=== PATIENT | male | born 1950 | race Caucasian/White ===

== ENCOUNTER 2023-05-02 18:30 | Inpatient (IN) | payer MEDICARE, OTHER, SELFPAY ==
[2023-05-02 12:05] VITALS: BP 189/74
[2023-05-02 13:10] VITALS: BMI 27.3
[2023-05-02] MEDS: NSS 1000 IV ×2 (13:31→17:59)
[2023-05-02] MEDS: TORADOL 15 MG IV (13:31)
[2023-05-02] MEDS: ZOFRAN 4 MG IV (13:31)
[2023-05-02 13:44] LABS: % Basophils 0.4 % (0-2); % Eosinophils 1.1 % (0-6); % Immature Granulocytes 0.5 % (0-0.5); % Lymphocytes 8.4 % (20.5-51.1); % Neutrophils 83.6 % (42.2-75.2); Absolute Eosinophils 0.1 10^3/uL (0-0.7); Absolute Immature Granulocytes 0.1 10^3/uL (0-0.05); Absolute Lymphocytes 0.9 10^3/uL (1.2-3.4); Absolute Monocytes 0.6 10^3/uL (0.1-0.6); Absolute Neutrophils 8.9 10^3/uL (1.4-6.5); Hematocrit 35.4 % (39.0-52.0); Hemoglobin 12.2 g/dL (13.0-18.0); Mean Corp Hgb Conc. 34.5 g/dL (33.0-37.0); Mean Corpuscular Hgb 29.8 pg (27.0-31.0); Mean Corpuscular Volume 86.6 fL (80.0-94.0); Mean Platelet Volume 10.4 fL (7.4-10.4); Nucleated Red Blood Cells % 0 % (-); Platelet Count 211 10^3/uL (130-400); Red Blood Cell Count 4.09 10^6/uL (4.70-6.10); Red Cell Dist. Width 13.8 % (11.5-14.5); White Blood Cell Count 10.6 10^3/uL (4.8-10.8)
[2023-05-02 13:56] LABS: ALT (SGPT) 27 U/L (0-50); AST (SGOT) 23 U/L (17-59); Albumin 4.1 g/dl (3.5-5.0); Alkaline Phosphatase 129 U/L (38-126); Blood Urea Nitrogen 51 mg/dl (9-20); Calcium 8.7 mg/dl (8.4-10.2); Carbon Dioxide 15 mmol/L (22-30); Chloride 112 mmol/L (98-107); Estimated Creatinine Clearance 40 ml/min; Glucose 256 mg/dl (70-99); Potassium 5.9 mmol/L (3.5-5.1); Sodium 135 mmol/L (135-145); Total Bilirubin 0.4 mg/dl (0.2-1.3); Total Protein 6.8 g/dl (6.3-8.2); eGFR 34.81
--- NOTE | 2023-05-02 14:32 | ED.GENMED ---
History of Present Illness
General
Chief Complaint: Flank Pain
Source: patient
Exam Limitations: none
Time Seen by Provider: 05/02/23 12:33
Nursing documentation reviewed up to this point in time: agreed with
Travel History
Have you had any contact with someone who has COVID-19?: No
Do you have any symptoms of coronavirus? Fever > 100 degrees, chills, cough, shortness of breath, sore throat, loss of taste or smell, muscle aches, or headache?: No
History of Present Illness
History of Present Illness:
73-year-old male with past medical history of CAD hypertension hyperlipidemia presenting to the emergency department today with concerns of right-sided flank discomfort over the past hour with associated vomiting. Feels very similar to previous
kidney stones. Denies chest pain shortness of breath fevers.
Past History
Past History
ED Past Medical History: CAD, HTN, Hypercholesterolemia, NIDDM and Other (Kidney stones, appendectomy)
ED Past Surgical History: Cardiac
Social History
Tobacco: Non-smoker
Alcohol: Occasional
Drug: None
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
Family History
Family History: Other (Brother with kidney stones)
Review of Systems
Review of Systems
Allergies reviewed?: Yes
All Other Systems: ROS reviewed and negative except as documented in HPI and ROS
Phy Exam
Physical Exam
Physical Exam:
GENERAL: Alert , in no apparent distress
EYE: pupils equal and reactive
NECK: Supple, no significant adenopathy.
ENT: o/p clr, mmm.
CARDIAC: Regular rate and rhythm .
LUNGS: Clear breath sounds bilaterally, no acute respiratory distress, no wheezes/rales/rhonchi
ABDOMEN: Soft, without focal tenderness, no r/g, no cvat
NEUROLOGICAL: Alert and oriented, no focal neuro deficits
SKIN: Warm and dry, skin intact.
MUSCULOSKELETAL: No edema, well perfused.
PSYCH: Normal and appropriate interaction.
Course
Orders/Labs/Results
Orders:
Orders
05/02/23 13:02
CT Abd/pel Without Iv Or Oral Urgent
Comment:
Reason For Exam: right flank pain
0.9% Sodium Chloride 1000 ml [Nss] 1,000 ml IV BOLUS
Ketorolac [Toradol] 15 mg IV NOW STA
Ondansetron Injectable [Zofran] 4 mg IV NOW STA
05/02/23 13:29
Complete Blood Count/With Diff Urgent
Comprehensive Metabolic Panel Urgent
Glycohemoglobin (HgbA1c) Urgent
05/02/23 14:41
EKG [Electrocardiogram (*1)] Urgent
Reason for Study: Other
Other Reason for Exam: hyperkalemia
EKG- Treatment ONCE
05/02/23 Dinner
Potassium, 2 Gram
At Your Request: Full Participation
Does patient need a safe tray?: No
Low Potassium: 2000 johnny/17 CHO Diabetic
05/02/23 16:10
Magnesium Urgent
Potassium Urgent
Urinalysis Reflex To Culture Urgent
Date Specimen was Collected: 05/02/23
Time Specimen was Collected: 12:07
Urine Microscopic Reflex Cult Urgent
05/02/23 16:49
Albuterol Nebs [Ventolin Nebules] 2.5 mg INH R NOW STA
Dextrose 50%-Water [Dextrose 50% Syringe] 25 grams IV NOW STA
Insulin Human Regular [Novolin R] 10 units IV NOW STA
Sodium Zirconium Cyclosilicate [Lokelma] 10 gram PO NOW STA
05/02/23 16:50
Peak Flow Rate [RESP] Urgent
Quantity: 1
Pre-Bronchodilator: Yes
Post Bronchodilator: Yes
Special Instructions: Pre and Post Peak Flow before and after Bronchodilator
05/02/23 17:50
0.9% Sodium Chloride 1000 ml [Nss] 1,000 ml IV BOLUS
Nursing to Place Non Medication Order As Directed
Physician Order: please update overnight house [employer]RO[employer] with evening K results
Above order entered?: Yes
05/02/23 17:55
Admit/Transfer Patient As Directed
Co-Sign Provider:
Level of Care: Inpatient admission
Assign to:: Telemetry
Physician / Group: Francoise Pérez
Diagnosis: hyperkalemia
Reason for Telemetry: Chest Pain syndromes
Date to Stop Telemetry: 05/04/23
Time to Stop Telemetry: 11:00
Reason for Hospitalization: hyperkalemia
Expected length of stay greater than two midnights?: Yes
ELOS- Estimated Length of Stay in days: 3
I certify the patient meets the requirements for IP care: Yes
05/02/23 17:56
Code Status As Directed
Resuscitation Status: Full Code
05/02/23 18:00
Sterile Water For Inj [Sterile Water For Injection 1000 ml] 1,000 ml Sodium Bicarbonate 150 meq IV 100 mls/hr
05/02/23 19:44
Stone Analysis With Image [S] Routine
05/02/23 20:17
Acetaminophen [Tylenol] 650 mg PO Q4HPRN PRN
Atorvastatin [Lipitor] 40 mg PO QPM
Dextrose 50%-Water [Dextrose 50% Syringe] 12.5 grams IV [id number] PRN
Glucagon [GlucaGen] 1 mg IM PRN PRN
Heparin 5,000 units SC Q12
Metoprolol Xl [Toprol Xl] 50 mg PO BID
05/02/23 20:17
Add On- LAB Routine
Tests Added?: HgbA1C to today's lab
Activity As Directed
Activity Level: As Tolerated
Bedside Glucose Monitoring As Directed
Frequency: AC&HS
Comment: Change to q6h if pt on TPN, tube feeding or not eating
Vital Signs As Directed
Frequency: Per unit guidelines
DX Deep Vein Thrombosis Video Routine
05/02/23 21:31
Potassium Routine
05/03/23 06:00
Sodium Zirconium Cyclosilicate [Lokelma] 10 gram PO TID@0600,1400,1800
05/03/23 07:10
Basic Metabolic Panel Routine
Complete Blood Count/No Diff Routine
Magnesium Routine
05/03/23 07:30
Insulin Aspart Corrective Low [Novolog Flexpen-Low Resistance] See Protocol SC AC
05/03/23 08:00
Amlodipine [Norvasc] 5 mg PO DAILY
05/04/23 11:00
DC Protocol for Telemetry ONCE
Abnormal Lab Results
05/02/23 05/02/23
13:29 16:10
RBC 4.09 L 10^6/uL
(4.70-6.10)
Hgb 12.2 L g/dL
(13.0-18.0)
Hct 35.4 L %
(39.0-52.0)
Abs Immat Gran (auto) 0.1 H 10^3/uL
(0-0.05)
Absolute Neuts (auto) 8.9 H 10^3/uL
(1.4-6.5)
Absolute Lymphs (auto) 0.9 L 10^3/uL
(1.2-3.4)
Neutrophils % 83.6 H %
(42.2-75.2)
Lymphocytes % 8.4 L %
(20.5-51.1)
Potassium 5.9 H mmol/L 6.2 H* mmol/L
(3.5-5.1) (3.5-5.1)
Chloride 112 H mmol/L
(98-107)
Carbon Dioxide 15 L mmol/L
(22-30)
BUN 51 H mg/dl
(9-20)
Creatinine 2.0 H mg/dL
(0.7-1.3)
Glucose 256 H mg/dl
(70-99)
Hemoglobin A1c 9.5 H %
(4.0-5.6)
Alkaline Phosphatase 129 H U/L
(38-126)
Ur Occult Blood Reflex 4+ A
(Negative)
Urine RBC 7-10 A /HPF
(0-2)
Urine Glucose 3+ A
(Negative)
05/02/23 13:29
05/02/23 16:10
Vital Signs
Initial and Last Documented VS:
Initial Vital Signs
Temp Pulse Resp BP Pulse Ox
98.3 F 83 20 189/74 98
05/02/23 12:05 05/02/23 12:05 05/02/23 12:05 05/02/23 12:05 05/02/23 12:05
Last Documented Vital Signs
Temp Pulse Resp BP Pulse Ox
97.3 F 63 16 133/63 95
05/03/23 07:55 05/03/23 07:55 05/03/23 07:55 05/03/23 07:55 05/03/23 08:00
MDM/Problems Addressed
MDM/Problems Addressed:
73-year-old male presenting to the emergency department today with concerns of right-sided flank pain starting just prior to arrival symptoms fully resolved prior to my assessment. Feels very similar to previous kidney stones. Blood pressure
elevated otherwise vital signs are normal upon arrival here. Patient does have elevated creatinine level but at his baseline. Potassium level is 5.9. Patient does have baseline CKD with creatinine 2.0 which is at patient's baseline glucose
elevated as well. Patient was given a liter of fluid plan to repeat labs to ensure this is an accurate number otherwise EKG does not show emergent changes. CT scan shows likely recently passed stone patient is asymptomatic at this point
reassessment and would like to go home. Patient did have a potassium level was 5.9 this was repeated 6.2 concerning the patient will be admitted for further treatment of hyperkalemia. Patient does take lisinopril and does have significant chronic
kidney disease likely contributing to this. EKG without emergent changes. Patient was given temporizing medications.
*Critical Care Note
Total Time (30-74mins, 75-104mins- exclusive of procedures): Not Applicable
ED Attending Note
-
Portions of this chart may have been created with voice recognition software.� Occasional wrong word or��sound alike� substitutions may have occurred due to the inherent limitations of voice recognition software.
Discharge Plan
Departure
Patient Disposition: Admit
Date of Disposition: 05/02/23
Time of Disposition: 16:52
Admit to: Med/Surg
Admit to doctor: Lang
Presentation/result/management discussed w/ accepting MD/DO: Hospitalist
Patient with high blood pressure during this ER visit?: No
Condition: Good
Covid-19: Not Applicable
Discharge Problem:
Acute hyperkalemia
Interventions
Interventions:
*Risk Screen - Suicide Last Done: 05/02/23 13:47
*General Assessment Last Done: 05/02/23 13:47
*Neglect/Abuse Screening Last Done: 05/02/23 13:47
ED- Fall Risk Assessment Last Done: 05/02/23 13:50
*ED COVID-19 Vaccine History Last Done: 05/02/23 21:45
*Nursing Disposition Last Done: 05/02/23 20:15
ZV-Ttzjes-Ibqoqtxctw Assessment Last Done: 05/02/23 13:50
ED-Male Genitourinary Assessment Last Done: 05/02/23 13:50
Discharge Date and Time
Discharge Date/Time: 05/02/23 20:15
[2023-05-02 16:22] LABS: Urine Albumin Negative (Neg - Trace); Urine Bilirubin Negative (Negative); Urine Character Clear (Clear); Urine Color Yellow; Urine Glucose 3+ (Negative); Urine Ketone Negative (Negative); Urine Leukocyte Negative (Negative); Urine Nitrite Negative (Negative); Urine Occult Blood 4+ (Negative); Urine Specific Gravity 1.015 (<1.030); Urine Urobilinogen Negative (Neg - 1+)
[2023-05-02 16:27] LABS: Urine Squamous Cell 0-2 /LPF (Few)
[2023-05-02 16:28] LABS: Urine White Cell None Seen /HPF (0-5)
[2023-05-02 16:46] LABS: Magnesium 1.6 mg/dl (1.6-2.3); Potassium 6.2 mmol/L (3.5-5.1)
--- NOTE | 2023-05-02 17:25 | HPS.HSE ---
Family Physician
-
Family Physician: Gene Banks
Chief Complaint
-
flank pain
History of Present Illness
Mr. Flaquito Jamil is a 73 yo man with hx CAD s/p CABG 2014, essential HTN, HLD presented to the ER with right-sided pain and associated vomiting. While in the ER he passed a kidney stone. ER asking for admission given hyperkalemia.
Patient reports he vomited a couple of times and has not eaten or drank a lot today. He noticed pain this morning similar to prior stones. While giving urine sample he passed the stone. No fevers/chills. No chest pain or shortness of breath, no
abdominal pain.
K initially 5.9. He was given 1L IVF. Repeat check 3 hours later 6.2.
Medical History
Past Medical History
Past Medical History: Reports Other (CAD, essential HTN, HLD)
Past Surgical History: Reports Appendectomy and Cardiac (CABG 2014)
Social History
Tobacco: Non-smoker
Alcohol: Occasional
Family History
Family History: Not pertinent
Allergies / Home Medications
Allergies reflects when Allergies were last updated in [facility].
Home Medications with original date entered in [facility]
Allergy/Medication List:
Allergies
Allergy/AdvReac Type Severity Reaction Status Date / Time
No Known Allergies Allergy Verified 05/02/23 12:04
Home Medications
llbubplb-kyw-jphph acid 0.4 mg-lycopene 300 mcg-lutein 250 mcg tablet (Centrum Silver) 1 ea PO DAILY 02/26/14
omega-3 fatty acids-fish oil 300 mg-1,000 mg capsule 1 ea PO DAILY 02/26/14
amlodipine 5 mg tablet 5 mg PO DAILY ##0 03/25/14
atorvastatin 40 mg tablet 40 mg PO QPM ##30 03/15/15
metformin 500 mg tablet 500 mg PO BID@0800,1700 ##60 03/15/15
ascorbic acid (vitamin C) 1,000 mg tablet (Vitamin C) 1,000 mg PO DAILY 05/02/23
dapagliflozin propanediol 10 mg tablet (Farxiga) 10 mg PO DAILY 05/02/23
lisinopril 20 mg tablet 20 mg PO DAILY 05/02/23
metoprolol succinate 50 mg tablet,extended release 24 hr 50 mg PO BID 05/02/23
Review of Systems
-
History Source: Patient
A 12 point ROS was completed and negative except as noted: Yes
Physical Exam
Vital Signs
Vital Signs
Temp Pulse Resp BP Pulse Ox
98.3 F 83 20 189/74 98
05/02/23 12:05 05/02/23 12:05 05/02/23 12:05 05/02/23 12:05 05/02/23 12:05
Physical Exam
General: No Apparent Distress
HEENT: PERRLA
Respiratory: Clear; No Wheezes
Cardiac: S1/S2 and Regular Rhythm
GI: Soft and Non Tender
Musculoskeletal: No Edema
Skin: Warm and Dry; No Rash
Neuro: AO x 3
Psych: Calm
Laboratory Results
-
05/02/23 13:29
05/02/23 16:10
Laboratory Results
Total Bilirubin 0.4 mg/dl (0.2-1.3) 05/02/23 13:29
AST 23 U/L (17-59) 05/02/23 13:29
ALT 27 U/L (0-50) 05/02/23 13:29
Alkaline Phosphatase 129 U/L (38-126) H 05/02/23 13:29
Data Reviewed
-
Diagnostic Radiology: Report Reviewed by me
Lab Data: Labs Reviewed by me
Impression/Plan
-
Mr. Flaquito Jamil is a 73 yo man with hx CAD, essential HTN, HLD presented to the ER with right-sided pain and associated vomiting. While in the ER he passed a kidney stone. ER asking for admission given hyperkalemia.
Triage VS: T 98.3, P 83, RR 20, BP 189/74, SpO2 98%
LABS: WBC 10.6, Hg 12.2, PLT 211, Na 135, K+ 5.9, CO2 15, Cr 2.0, Mag 1.6
EKG: sinus with PVC's, RBBB left anterior fascicular block
MAR: dextrose, insulin, IVF
Hyperkalemia
-initially given 1L IVF; labs rechecked 3 hours later with increased K to 6.1 now s/p insulin + D5, albuterol, lokelma
-will give an additional liter (likely still dehydrated with vomiting and minimal PO intake)
-hold WOOL PULLER lisinopril
-initiate sodium bicarb infusion given CKD and metabolic acidosis
-continue Lokelma
-repeat K at 9PM and again tomorrow AM
-low K diet
Chronic kidney disease
-creatinine at baseline
Nephrolithiasis
-patient passed a stone in the ER, send for analysis
Essential Hypertension
-hold WOOL PULLER lisinopril
-continue WOOL PULLER metoprolol
-continue WOOL PULLER amlodipine
HLD
-WOOL PULLER Atorvastatin
DM
-hold WOOL PULLER Farxiga and metformin for now
-ISS
-diabetic diet
DVT PPx hep sub Q
FULL CODE
[2023-05-02] MEDS: NOVOLIN R 10 UNITS IV (17:56)
[2023-05-02] MEDS: LOKELMA 10 GRAM PO (17:58)
[2023-05-02] MEDS: DEXTROSE 50% SYRINGE 25 GRAMS IV (17:58)
[2023-05-02] MEDS: VENTOLIN NEBULES 2.5 MG INH (17:59)
[2023-05-02 18:04] VITALS: BP 138/71
[2023-05-02 19:00] VITALS: BP 148/66
[2023-05-02] MEDS: SODIUM BICARBONATE 1150 MEQ IV (19:09)
[2023-05-02 20:00] VITALS: BP 138/62
--- NOTE | 2023-05-02 20:30 | PTCARENOTE ---
Received patient from ED via stretcher. Patient ambulated from stretcher to bed independently. AAOx3, no current complaints of pain. Oriented patient to room and placed call abbott within reach.
[2023-05-02 20:40] VITALS: BP 143/71
[2023-05-02 21:15] VITALS: BMI 26.7
[2023-05-02] MEDS: TOPROL XL 50 MG PO (21:59)
[2023-05-02] MEDS: LIPITOR 40 MG PO (21:59)
[2023-05-02 22:52] LABS: Glucose - Point of Care 128 mg/dl (70-99)
[2023-05-02 23:00] VITALS: BP 138/58
[2023-05-03] MEDS: LOKELMA 5 GRAM PO (00:03)
[2023-05-03 03:00] VITALS: BP 132/56
[2023-05-03] MEDS: SODIUM BICARBONATE 1150 MEQ IV (06:12)
[2023-05-03 07:38] LABS: Hematocrit 33.7 % (39.0-52.0); Hemoglobin 11.5 g/dL (13.0-18.0); Mean Corp Hgb Conc. 34.1 g/dL (33.0-37.0); Mean Corpuscular Hgb 29.6 pg (27.0-31.0); Mean Corpuscular Volume 86.9 fL (80.0-94.0); Mean Platelet Volume 10.3 fL (7.4-10.4); Platelet Count 199 10^3/uL (130-400); Red Blood Cell Count 3.88 10^6/uL (4.70-6.10); Red Cell Dist. Width 13.8 % (11.5-14.5); White Blood Cell Count 7.9 10^3/uL (4.8-10.8)
[2023-05-03 07:43] LABS: Glucose - Point of Care 117 mg/dl (70-99)
[2023-05-03] MEDS: NORVASC 5 MG PO (07:50)
[2023-05-03] MEDS: TOPROL XL 50 MG PO (07:50)
[2023-05-03 07:55] VITALS: BP 133/63
[2023-05-03 08:00] LABS: Blood Urea Nitrogen 39 mg/dl (9-20); Calcium 8.2 mg/dl (8.4-10.2); Carbon Dioxide 20 mmol/L (22-30); Chloride 109 mmol/L (98-107); Estimated Creatinine Clearance 53 ml/min; Glucose 133 mg/dl (70-99); Magnesium 1.5 mg/dl (1.6-2.3); Potassium 4.7 mmol/L (3.5-5.1); Sodium 137 mmol/L (135-145); eGFR 49.16
[2023-05-03 09:49] LABS: Glycohemoglobin (HgbA1c) 9.5 % (4.0-5.6)
--- NOTE | 2023-05-03 11:23 | CM ---
Patient seen bedside, initial assessment completed. Patient reports he resides independently in a single story home, four steps to enter. Patient denies the use of DME, VN, or SNF history. Patient confirms PCP Dr. Gene Banks, pharmacy [facility]
in [place]. Patient eager to go home, reports he drove himself here and will drive himself home. CM will continue to follow for discharge planning needs.
Plan; home no needs anticipated.
[2023-05-03] MEDS: MAGNESIUM SULFATE 50 IV (11:32)
--- NOTE | 2023-05-03 11:33 | W.PN.HOSP.TC ---
Today's Communication/Plan
-
OK for DC today
Assessment / Plan
Assessment / Plan
Mr. Flaquito Jamil is a 73 yo man with hx CAD, essential HTN, HLD presented to the ER with right-sided pain and associated vomiting.� While in the ER he passed a kidney stone.� ER asking for admission given hyperkalemia.
Hyperkalemia
-initially given 1L IVF; labs rechecked 3 hours later with increased K to 6.1 now s/p insulin + D5, albuterol, lokelma
-Hyperkalemia resolved this AM
-*Given K was elevated in setting of vomiting and dehydration with likely mild RAYMOND, it is OK to resume lisinopril. We will get repeat labs on Monday. Patient has follow up wtih his PCP early next week. Will give instructions on low K diet.
Chronic kidney disease
-creatinine at baseline- improved to 1.5 this AM
Nephrolithiasis
-patient passed a stone in the ER, send for analysis
Essential Hypertension
-resume 1/2 dose lisinopril - BP in 130's-140's overnight
-continue [employer] SALES REPRESENTATIVE metoprolol
-continue [employer] SALES REPRESENTATIVE amlodipine
HLD
-DA[employer] SUP[employer] SALES REPRESENTATIVE Atorvastatin
DM
-resume [employer] SALES REPRESENTATIVE meds
-ISS
-diabetic diet
Hypomagnesemia
-replete
DVT PPx hep sub Q
FULL CODE
Anticipated Discharge: Today
Subjective/Interval History
-
Date of Service: May 03, 2023
feeling well
anxious to go home
Objective Data
-
Labs:
Laboratory Results
05/03/23
07:10
WBC 7.9
Hgb 11.5 L
Hct 33.7 L
Plt Count 199
Sodium 137
Potassium 4.7
Chloride 109 H
Carbon Dioxide 20 L
BUN 39 H
Creatinine 1.5 H
Glucose 133 H
Calcium 8.2 L
Vital Signs:
Vital Signs
Temp Pulse Resp BP Pulse Ox
97.3 F 63 16 133/63 95
05/03/23 07:55 05/03/23 07:55 05/03/23 07:55 05/03/23 07:55 05/03/23 08:00
Review of Systems
-
History Source: Patient
All other systems: Reviewed and negative
Physical Exam
-
General: No Apparent Distress
HEENT: PERRLA
Respiratory: Clear to Auscultation; Negative Wheezes
Cardiac: Regular Rhythm and S1/S2
GI: Soft and Nontender
Musculoskeletal: No Edema
Skin: Warm and Dry; Negative Rash
Neuro: AO x 3
Psych: Calm
Data Reviewed
-
Diagnostic Radiology: Report Reviewed by me
Labs: Labs Reviewed by me
--- NOTE | 2023-05-03 11:37 | W.DS.TRANS ---
DC Summary - Template Checker
-
Discharge Instructions:
Discharge Diagnosis/Procedures hyperkalemia, passed renal stone
Diet Other diet
Additional Diets low potassium; diabetic
Activity As tolerated
Driving Restrictions As prior to admission
Bathing Restrictions None
Blood Work BMP on Monday05/08/23. Go to lab with script.
Results will be reported to your PCP.
Instructions:
Stand-Alone Forms:
Changes to Home Medications: Yes
Discharge Medications:
DC Medications w/original date entered in [employer]
hbjvldgh-qcv-etytg acid 0.4 mg-lycopene 300 mcg-lutein 250 mcg tablet (Centrum Silver) 1 ea PO DAILY 02/26/14
omega-3 fatty acids-fish oil 300 mg-1,000 mg capsule 1 ea PO DAILY 02/26/14
amlodipine 5 mg tablet 5 mg PO DAILY ##0 03/25/14
atorvastatin 40 mg tablet 40 mg PO QPM ##30 03/15/15
metformin 500 mg tablet 500 mg PO BID@0800,1700 ##60 03/15/15
ascorbic acid (vitamin C) 1,000 mg tablet (Vitamin C) 1,000 mg PO DAILY 05/02/23
dapagliflozin propanediol 10 mg tablet (Farxiga) 10 mg PO DAILY 05/02/23
metoprolol succinate 50 mg tablet,extended release 24 hr 50 mg PO BID 05/02/23
lisinopril 20 mg tablet 10 mg PO DAILY #0 tabs 05/03/23
Home Medication Changes
decrease lisinopril from 20mg daily to 10mg daily
Pending Results: Yes
Additional Pending Results:
renal stone analysis
[2023-05-03 11:55] VITALS: BP 152/68
[2023-05-03 12:42] LABS: Glucose - Point of Care 159 mg/dl (70-99)
--- NOTE | 2023-05-03 14:26 | W.DCSUMMARY ---
Discharge Summary
Discharge Data
Date of Admission: 05/02/23
Date of Discharge: 05/03/23
-
Pending Results: No
Hospital Course
Discharging Physician : Dr. Francoise Pérez
Disposition : Home
Primary care physician : Dr. Gene Banks
Principal Discharge diagnosis : passed renal stone, hyperkalemia
Hospital Course :
Mr. Flaquito Jamil is a 73 yo man with hx CAD s/p CABG 2014, essential HTN, HLD presented to the ER with right-sided pain and associated vomiting.� While in the ER he passed a kidney stone with relief of pain.� Initial labs showed K 5.9 with
creatinine 2.0, CO2 15. Patient was given fluids but on recheck K was 6.2. At this point patient admitted to medicine for further treatment and monitoring. In ER he was given insulin + D50, albuterol, Lokelma and additional fluids. He was
maintained on sodium bicarb overnight. K normalized to 4.7 the following morning and creatinine 1.5.
Given patient had abnormal labs in setting of dehydration which is now resolved, OK to resume lisinopril. I am resuming 1/2 dose given BP range 130's in hospital. Labs to be rechecked on Monday. Patient has planned PCP appointment early next
week, will review if lisinopril should be increased back to prior dosing 20mg daily.
Renal stone was sent for analysis, pending at [facility].
Time spent on discharge was 35 minutes.
Important imaging findings :
ABDOMEN PELVIC CT 05/02/23
IMPRESSION:
As described above, findings suggesting a recently passed right ureteral calculus. There is a 2 mm calcification within the posterior midline dependent bladder.
Bilateral small nephroliths.
Moderate elevation right hemidiaphragm, increased compared to CT of March 11, 2015. Linear densities within the right lower lung, most likely linear and discoid atelectasis.
Cholelithiasis. No CT findings for acute cholecystitis. No evidence of biliary ductal dilation.
Mild fatty infiltration of the liver.
Colonic diverticula with no CT evidence for diverticulitis.
Bony degenerative changes as described, including a calcified left posterior subarticular disc protrusion at T12-L1.
�
Procedure findings :
Discharge Plan
-
Patient Disposition: Home (Routine Discharge)
Discharge Diagnosis/Procedures: hyperkalemia, passed renal stone
Diet: Other diet
Additional Diets: low potassium; diabetic
Activity: As tolerated
Driving Restrictions: As prior to admission
Bathing Restrictions: None
Blood Work: BMP on Monday05/08/23. Go to lab with script. Results will be reported to your PCP.
Instructions: Low-potassium diet
Referrals:
Gene Banks, DO [Family Provider] - in less than 1 week
Additional Discharge Medication Instructions: Decrease your Lisinopril from 20mg to 10mg. Your systolic blood pressure was 130's in hospital off of this medication. Consider getting a blood pressure machine for home and recording BP readings to
PCP one hour after taking your medications.
Prescriptions:
Continued
Centrum Silver 1 EACH tablet
1 ea PO DAILY
omega-3 fatty acids-fish oil 1 EACH capsule
1 ea PO DAILY
Patient Comments:
1200 mg
amlodipine 5 MG tablet
5 mg PO DAILY Qty: 0 0RF
Rx Instructions:
do not resume this medication until instructed by your information systems administrator
atorvastatin 40 MG tablet
40 mg PO QPM Qty: 30 0RF
metformin 500 MG tablet
500 mg PO BID@0800,1700 Qty: 60 0RF
dapagliflozin propanediol [Farxiga] 10 mg tablet
10 mg PO DAILY
ascorbic acid (vitamin C) [Vitamin C] 1,000 mg Tablet
1,000 mg PO DAILY
metoprolol succinate 50 mg tablet extended release 24 hr
50 mg PO BID
Changed
lisinopril 20 mg tablet
10 mg PO DAILY Qty: 0 0RF
Discharge Orders:
Discharge Patient (As Directed); Ordered 05/03/23
Ordered By: Francoise Pérez
Discharge Date and Time
Discharge Date/Time: 05/03/23 14:03
== END 2023-05-03 14:03 | disposition home or self-care (01) | DRG 641 ==
LOC: 4 EAST ACU 18:30
PROVIDERS: Emergency Medicine; Physician Assistant; ADMITTING PHYSICIAN Student in an Organized Health Care Education/Training Program; EMERGENCY PHYSICIAN Emergency Medicine; FAMILY PHYSICIAN Family Medicine
DX: E87.5 Hyperkalemia (principal); N17.9 Acute kidney failure, unspecified; J98.11 Atelectasis; N20.0 Calculus of kidney; I25.10 Atherosclerotic heart disease of native coronary artery without angina pectoris; K76.0 Fatty (change of) liver, not elsewhere classified; K57.30 Diverticulosis of large intestine without perforation or abscess without bleeding; K80.20 Calculus of gallbladder without cholecystitis without obstruction; E78.00 Pure hypercholesterolemia, unspecified; I12.9 Hypertensive chronic kidney disease with stage 1 through stage 4 chronic kidney disease, or unspecified chronic kidney disease; E11.22 Type 2 diabetes mellitus with diabetic chronic kidney disease; E83.42 Hypomagnesemia; E86.0 Dehydration; N18.9 Chronic kidney disease, unspecified; Z87.442 Personal history of urinary calculi; Z95.1 Presence of aortocoronary bypass graft; Z90.49 Acquired absence of other specified parts of digestive tract
CPT/HCPCS: 74176; 80048; 80053; 81003; 81015; 82365; 82962; 83036; 83735; 84132; 85025; 85027; 93005; 96361; 96374; 96375; 99285

== ENCOUNTER → 2023-05-08 10:01 | Outpatient (REF) | payer MEDICARE, OTHER, SELFPAY ==
[2023-05-08 12:33] LABS: Blood Urea Nitrogen 39 mg/dl (9-20); Calcium 9.4 mg/dl (8.4-10.2); Carbon Dioxide 25 mmol/L (22-30); Chloride 103 mmol/L (98-107); Glucose 226 mg/dl (70-99); Potassium 5.4 mmol/L (3.5-5.1); Sodium 137 mmol/L (135-145)
== END ==
LOC: REG 10:01
PROVIDERS: ATTENDING PHYSICIAN Student in an Organized Health Care Education/Training Program; FAMILY PHYSICIAN Family Medicine
DX: E87.5 Hyperkalemia (principal)
CPT/HCPCS: 36415; 80048

== ENCOUNTER 2023-09-04 15:20 | Inpatient (IN) | payer MEDICARE, OTHER, SELFPAY ==
[2023-09-04] VITALS (8 sets, daily range): BP systolic 123–144; BP diastolic 56–68; BMI 24.8; BMI 24.6
--- NOTE | 2023-09-04 12:18 | ED.GENMED ---
History of Present Illness
General
Chief Complaint: Skin Problem
Source: patient and records
Time Seen by Provider: 09/04/23 11:56
History of Present Illness
History of Present Illness:
This patient is a 73-year-old male presents emergency department complaints of a painful and foul-smelling right foot. He reports he was vacationing in [place] for almost 2 weeks and did a lot of walking as well as enjoying the water in the ocean.
By the end of June, he noted that the toe was becoming swollen. He started to wrap the area and apply an [id number]-sgk-wkalgng ointment. He saw his doctor 3 weeks ago but did not mention the symptoms. Then, over the last week or so he has noted
increasing pain of the third digit on the right foot area. He noted foul-smelling as of 4 days ago. He saw an orthopedic doctor today who sent him to the emergency department given his obvious third toe gangrene. It is recommended that patient
obtain an x-ray, MRI, and n.p.o. past midnight in anticipation of toe amputation. Patient denies fever, chills, numbness, tingling. He does have nausea but denies vomiting
Past History
Past History
ED Past Medical History: CAD, HTN, Hypercholesterolemia, NIDDM and Other (Kidney stones, appendectomy, DM)
ED Past Surgical History: Cardiac
Social History
Tobacco: Non-smoker
Alcohol: Occasional
Drug: None
Living: alone
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
Family History
Family History: Other (Brother with kidney stones)
Phy Exam
Physical Exam
Physical Exam:
GENERAL: Alert , in no apparent distress
EYE: pupils equal and reactive
NECK: Supple, no significant adenopathy.
ENT: o/p clr, mmm.
CARDIAC: Regular rate and rhythm .
LUNGS: Clear breath sounds bilaterally, no acute respiratory distress, no wheezes/rales/rhonchi
ABDOMEN: Soft, without focal tenderness, no r/g, no cvat
NEUROLOGICAL: Alert and oriented, no focal neuro deficits
SKIN: macerated gangrenous foul smelling R 3rd toe with necrosis noted inferiorly, as well as nectoric appearing areas plntr aspect midfoot. Erythema and warmth extending to mid foot, no crepitus
MUSCULOSKELETAL: As above
PSYCH: Normal and appropriate interaction.
Course
Orders/Labs/Results
Orders:
Orders
09/04/23 Breakfast
NPO
Allow oral meds: Yes
Allow clear liquids: No
NPO with Ice Chips: No
09/04/23 12:10
Cardiac Monitoring- Treatment ONCE
Foot, Right 3 View [CR Foot - Right Min 3 Views] Stat
Comment:
Reason For Exam: necrotic 3rd toe
09/04/23 12:12
Piperacillin/Tazo 4.5 Gram [Zosyn] 4.5 gram in 100 ml IV NOW
09/04/23 13:03
CRP [C-Reactive Protein] Urgent
Complete Blood Count/With Diff Urgent
Comprehensive Metabolic Panel Urgent
ESR [Erythrocyte Sed Rate] Urgent
Ferritin Urgent
Comment: ADD ON
Folate Urgent
Comment: ADD ON
Iron Urgent
Total Iron Binding Urgent
Vitamin B12 Urgent
Comment: ADD ON
Blood Culture Urgent
TRE Source: Blood/Venous
Specimen Description:
09/04/23 13:47
0.9% Sodium Chloride 500 ml [Nss] 500 ml IV BOLUS
09/04/23 13:57
Vancomycin [Vancocin] 2,000 mg 0.9% Sodium Chloride 500 ml [Nss] 500 ml IV NOW
09/04/23 14:54
Add On- LAB Urgent
Tests Added?: iron, ferritin, tibc, folate b12
09/04/23 14:58
Admit/Transfer Patient As Directed
Co-Sign Provider:
Level of Care: Inpatient admission
Assign to:: Medical/Surgical
Physician / Group: jade miller
Diagnosis: gangrene R 3rd toe w/ cellulitis dm 2 , anemia, transaminitis
Reason for Hospitalization: gangrene R 3rd toe w/ cellulitis dm 2 , anemia, transaminitis
Expected length of stay greater than two midnights?: Yes
ELOS- Estimated Length of Stay in days: 4
I certify the patient meets the requirements for IP care: Yes
Code Status As Directed
Resuscitation Status: Full Code
09/04/23 Dinner
1800 calorie (15 carb) Diabetic
At Your Request: Full Participation
Does patient need a safe tray?: No
09/04/23 15:18
PODIATRY CONSULT Routine
Consulting Provider: Cele Ojeda
Was physician already notified: Yes
Reason for consult: gangrene r 3rd toe
09/04/23 16:28
0.9% Sodium Chloride 1000 ml [Nss] 1,000 ml IV 100 mls/hr
Dextrose 50%-Water [Dextrose 50% Syringe] 12.5 grams IV P55ORHB PRN
Glucagon [GlucaGen] 1 mg IM PRN PRN
VANCOMYCIN Pharmacy to Dose [VANCOCIN Pharmacy to Dose] 1 each Pharmacy To Prepare [Call Pharmacy To Prepare] 0 ml IV PER PROTOCOL
09/04/23 16:28
Activity As Directed
Activity Level: As Tolerated
Bedside Glucose Monitoring As Directed
Frequency: AC&HS
Additional Instructions:: Change to q6h if pt on TPN, tube feeding or not eating
Intake/ Output As Directed
Frequency: Per unit guidelines
Pneumatic Compression Sleeves As Directed
Type: Knee high
Vital Signs As Directed
Frequency: Per unit guidelines
Ot Eval And Treat Routine
Pt Eval And Treat Routine
Activity Level: As Tolerated
DX Deep Vein Thrombosis Video Routine
09/04/23 16:30
Insulin Aspart Corrective Mod [Novolog Flexpen-Moderate Resistance] See Protocol SC AC
09/04/23 17:11
Type+Screen Urgent
09/04/23 20:00
Metoprolol Xl [Toprol Xl] 50 mg PO BID
09/05/23 08:00
Amlodipine [Norvasc] 5 mg PO DAILY
Ascorbic Acid [Vitamin C] 1,000 mg PO DAILY
09/05/23 08:10
Complete Blood Count/With Diff IN AM
Comprehensive Metabolic Panel IN AM
Glycohemoglobin (HgbA1c) IN AM
09/06/23 06:00
Complete Blood Count/With Diff IN AM
Comprehensive Metabolic Panel IN AM
09/07/23 06:00
Complete Blood Count/With Diff IN AM
Comprehensive Metabolic Panel IN AM
09/08/23 06:00
Complete Blood Count/With Diff IN AM
Comprehensive Metabolic Panel IN AM
Abnormal Lab Results
09/04/23
13:03
WBC 24.8 H 10^3/uL
(4.8-10.8)
RBC 3.48 L 10^6/uL
(4.70-6.10)
Hgb 9.8 L g/dL
(13.0-18.0)
Hct 28.9 L %
(39.0-52.0)
Plt Count 411 H 10^3/uL
(130-400)
Abs Immat Gran (auto) 0.4 H 10^3/uL
(0-0.05)
Absolute Neuts (auto) 22.4 H 10^3/uL
(1.4-6.5)
Absolute Lymphs (auto) 0.6 L 10^3/uL
(1.2-3.4)
Absolute Monos (auto) 1.4 H 10^3/uL
(0.1-0.6)
Immature Gran % 1.4 H %
(0-0.5)
Neutrophils % 90.1 H %
(42.2-75.2)
Lymphocytes % 2.5 L %
(20.5-51.1)
ESR 111 H mm/hour
(0-20)
Carbon Dioxide 15 L mmol/L
(22-30)
BUN 57 H mg/dl
(9-20)
Creatinine 2.2 H mg/dL
(0.7-1.3)
Glucose 328 H mg/dl
(70-99)
Iron 26 L ug/dl
(49-181)
TIBC 146 L ug/dl
(261-462)
% Saturation 17 L %
(20-50)
Ferritin 657.0 H ng/ml
(17.9-464.0)
AST 128 H U/L
(17-59)
ALT 224 H U/L
(0-50)
Alkaline Phosphatase 184 H U/L
(38-126)
C-Reactive Protein > 270.00 H mg/L
(0.0-10.00)
Albumin 3.1 L g/dl
(3.5-5.0)
Vitamin B12 > 1000 H pg/ml
(239-931)
Folate > 20.0 H ng/ml
(2.76-20)
09/04/23 13:03
09/04/23 13:03
Vital Signs
Initial and Last Documented VS:
Initial Vital Signs
Temp Pulse Resp BP Pulse Ox
98.2 F 100 18 136/56 98
09/04/23 11:48 09/04/23 11:48 09/04/23 11:48 09/04/23 11:48 09/04/23 11:48
Last Documented Vital Signs
Temp Pulse Resp BP Pulse Ox
100.4 F H 90 16 124/59 95
09/05/23 08:00 09/05/23 08:43 09/05/23 08:00 09/05/23 08:43 09/05/23 08:00
*Critical Care Note
Total Time (30-74mins, 75-104mins- exclusive of procedures): Not Applicable
Update Note
Update Note:
Patient presents to the Emergency Department with ___painful and foul-smelling third toe
Number and Complexity of Problems Addressed at the Encounter
� Chronic conditions affecting care:
� Acute Exacerbation and/or Progression of Chronic Illness:
� Differential Diagnosis includes: But not limited to osteomyelitis, abscess, necrosis, gangrene, etc. etc.
Amount and/or Complexity of Data to be Reviewed and Analyzed
� I performed an independent evaluation of and my interpretation is:
EKG:
CT:
Xrays:
Laboratory Studies:leukocytosis (c/w infx), anemia, worsening renal insufficiency
Other:
� Review of other/old records reveals:
� Clinical information was obtained by an independent historian: Note from Dr. Schrader
� Prescriptions/Medications Considered but not given:
� Further testing considered but not performed:
Risk of Complications and/or Morbidity or Mortality of Patient Management
� Social determinants of health affecting care:
� Discussion with other providers (PCP, Hospitalists, Consultants, etc):
� Escalation of care including admission/observation vs risk of discharge considered:xray pending, tt to hospitalist re:admission, npo after midnight, etc. 149 pm
ED Attending Note
-
Portions of this chart may have been created with voice recognition software.� Occasional wrong word or��sound alike� substitutions may have occurred due to the inherent limitations of voice recognition software.
Discharge Plan
Departure
Patient Disposition: Admit
Date of Disposition: 09/04/23
Time of Disposition: 13:49
Presentation/result/management discussed w/ accepting MD/DO: Hospitalist
Condition: Fair
Discharge Problem:
Gangrene of toe
Interventions
Interventions:
*Risk Screen - Suicide Last Done: 09/04/23 11:51
*General Assessment Last Done: 09/04/23 11:51
*Neglect/Abuse Screening Last Done: 09/04/23 11:51
*ED COVID-19 Vaccine History Last Done: 09/04/23 16:25
*Nursing Disposition Last Done: 09/04/23 16:10
ED-Skin Assessment Last Done: 09/04/23 12:50
Discharge Date and Time
Discharge Date/Time: 09/04/23 16:15
[2023-09-04] MEDS: ZOSYN 100 IV (13:14)
[2023-09-04 13:32] LABS: ALT (SGPT) 224 U/L (0-50); AST (SGOT) 128 U/L (17-59); Albumin 3.1 g/dl (3.5-5.0); Alkaline Phosphatase 184 U/L (38-126); Blood Urea Nitrogen 57 mg/dl (9-20); Calcium 9.3 mg/dl (8.4-10.2); Carbon Dioxide 15 mmol/L (22-30); Chloride 106 mmol/L (98-107); Estimated Creatinine Clearance 36 ml/min; Glucose 328 mg/dl (70-99); Potassium 4.2 mmol/L (3.5-5.1); Sodium 135 mmol/L (135-145); Total Bilirubin 0.5 mg/dl (0.2-1.3); Total Protein 6.3 g/dl (6.3-8.2); eGFR 31.05
[2023-09-04 13:42] LABS: Hematocrit 28.9 % (39.0-52.0); Hemoglobin 9.8 g/dL (13.0-18.0); Mean Corp Hgb Conc. 33.9 g/dL (33.0-37.0); Mean Corpuscular Hgb 28.2 pg (27.0-31.0); Mean Platelet Volume 9.4 fL (7.4-10.4); Platelet Count 411 10^3/uL (130-400); Red Blood Cell Count 3.48 10^6/uL (4.70-6.10); Red Cell Dist. Width 13.8 % (11.5-14.5); White Blood Cell Count 24.8 10^3/uL (4.8-10.8)
[2023-09-04 13:46] LABS: C-Reactive Protein > 270.00 mg/L (0.0-10.00); Erythrocyte Sed Rate 111 mm/hour (0-20)
[2023-09-04] MEDS: VANCOCIN 540 MG IV (14:08)
[2023-09-04] MEDS: NSS 500 IV (14:09)
[2023-09-04 14:18] LABS: % Basophils 0.3 % (0-2); % Immature Granulocytes 1.4 % (0-0.5); % Lymphocytes 2.5 % (20.5-51.1); % Monocytes 5.7 % (1.7-9.3); % Neutrophils 90.1 % (42.2-75.2); Absolute Basophils 0.1 10^3/uL (0-0.2); Absolute Immature Granulocytes 0.4 10^3/uL (0-0.05); Absolute Lymphocytes 0.6 10^3/uL (1.2-3.4); Absolute Monocytes 1.4 10^3/uL (0.1-0.6); Absolute Neutrophils 22.4 10^3/uL (1.4-6.5); Nucleated Red Blood Cells % 0 % (-)
--- NOTE | 2023-09-04 14:25 | HPS.HSE ---
Addendum entered and electronically signed by Nik Alvarez MD 09/04/23 15:36:
I have independently evaluated patient and agree with assessment and plan below. In addition:
73yo M with PMHx of DM, HTN, HLD came with c/o worsening discoloration of R toes. HE was seen by his grove worker and was sent to ED for possible intervention
#R multiple marqius gangrene
follow imaging
Vanco cefepime
Bcx
Podiatry
#Transaminitis
no abd pain
check hepatitis C Ab
FOllow LFT
#CKD stage 3b with createnine elevation (not in RAYMOND range)
follow Cr baseline 2.0
hold ACEi
provide mild hydration
#DM type 2 with circulatory complications
Insulin SS, Accuchecks, DM diet
DVT ppx hep
Original Note:
Family Physician
-
Family Physician: Gene Banks
Chief Complaint
-
right foot erythema with right 3rd toe swelling, black and foul odor
History of Present Illness
73 year old male complaining of painful foul smelling right foot toe for the past 2 weeks after walking lots on vacation and being in the ocean in [place] for the past 2 weeks. He reports swelling to his toe and has been applying over the counter
ointment to the affected area. he reports foul smelling drainage over the last 4 days with dark black toe and erythema to toe extending to dorsal and plantar foot . He was seen by Podiatry Dr Lynn today in the Er and told gagrene of right 3rd
tie who recommended MRI, xray and npo after midnight for toe amputation. He denies fever chills, Cp, palpitations, sob, cough, abd pain, nausea, vomiting diarrhea or urinary symptoms. He has pmh of CAD, HTN, HLD, DM2, Renal calculi, occasional
smoker.
Medical History
Past Medical History
Past Medical History: Reports Other
Additional Past Medical History:
CAD/Cabg x 3 vessel
HTN
HLD
DM2
Renal calculi
occasional smoker.
Past Surgical History: Reports Other
Additional Past Surgical History:
CABG x3 vessel
appendectomy
Social History
Tobacco: Smoker (occasional)
Alcohol: Occasional
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
Family History
Family History: Other (brother renal calculi )
Allergies / Home Medications
Allergies reflects when Allergies were last updated in [employer].
Home Medications with original date entered in [employer]
Allergy/Medication List:
Allergies
Allergy/AdvReac Type Severity Reaction Status Date / Time
No Known Allergies Allergy Verified 09/04/23 11:50
Home Medications
amlodipine 5 mg tablet 5 mg PO DAILY ##0 03/25/14
ascorbic acid (vitamin C) 1,000 mg tablet (Vitamin C) 1,000 mg PO DAILY 05/02/23
dapagliflozin propanediol 10 mg tablet (Farxiga) 10 mg PO DAILY 05/02/23
metoprolol succinate 50 mg tablet,extended release 24 hr 50 mg PO BID 05/02/23
lisinopril 20 mg tablet 10 mg (1/2 x 20 mg) PO DAILY #0 tabs 05/03/23
atorvastatin 40 mg tablet 40 mg PO HS 09/04/23
metformin 500 mg tablet 1,000 mg PO BIDWMEAL 09/04/23
xcxpdtbhvesv-rbm-beuao acid-vit K-lycop 400 mcg-20 mcg-370 mcg tablet (Men's 50 Plus Multivitamin) 1 tab PO DAILY 09/04/23
omega 1-rxz-req-fish oil 1,000 mg (120 mg-180 mg) capsule (Fish Oil) 1 cap PO DAILY 09/04/23
Review of Systems
-
History Source: Patient
A 12 point ROS was completed and negative except as noted: Yes
Constitutional: Denies Fever or Chills
EENT: Denies Sore Throat or Runny Nose
Respiratory: Denies Cough or Trouble Breathing
Cardiac: Denies Chest Pain, Diaphoresis, Palpitations or Syncope
Abdomen/GI: Denies Abdominal Pain, Nausea, Vomiting, Diarrhea, Constipated, Bloody Stools or Black Stools
: Denies Dysuria, Frequency, Flank Pain, Incontinence, Difficulty Voiding or Urgency
Musculoskeletal: Reports Other (right 3rd toe dark black toe and erythema to toe extending to dorsal and plantar foot . contusion versus blister plantar mid foot)
Skin: Denies Itching or Rash
Neurological: Denies Dizzy or Headache
Endocrine: Reports No Symptoms
Hematologic/Lymphatic: Reports No Symptoms
Psych: Reports Calm
Physical Exam
Vital Signs
Vital Signs
Temp Pulse Resp BP Pulse Ox
98.2 F 86 20 123/60 96
09/04/23 11:48 09/04/23 13:15 09/04/23 13:00 09/04/23 13:00 09/04/23 13:15
Physical Exam
General: Conversant; No Fever or Chills
HEENT: NormoCephalic, Anicteric, Moist mucous membranes, PERRLA, [place] Conjunctivae and No Ptosis
Respiratory: Clear; No Wheezes, Rales or Rhonchi
Cardiac: S1/S2 and Regular Rhythm; No Murmur, Rub, Gallop or Peripheral Edema
Breast: Deferred by me
GI: Soft, Non Tender, Non Distended, Normal Bowel Sounds and No Hepatosplenomegaly
Rectal: Deferred by Provider
Musculoskeletal: No Clubbing, No Cyanosis, No Edema and Other ( right 3rd toe dark black toe and erythema to toe extending to dorsal and plantar foot . contusion versus blister plantar mid foot); No Edema, Left Upper Extremity or Edema, Right
Upper Extremity
Skin: Warm and Dry; No Jaundice
Neuro: AO x 3, No Motor Deficits, Nonfocal/grossly intact, Cranial Nerves Intact and No Sensory Deficits; No Slurred Speech, Facial Droop or Tremors
Psych: Calm
Laboratory Results
-
09/04/23 13:03
09/04/23 13:03
Laboratory Results
Total Bilirubin 0.5 mg/dl (0.2-1.3) 09/04/23 13:03
AST 128 U/L (17-59) H 09/04/23 13:03
ALT 224 U/L (0-50) H 09/04/23 13:03
Alkaline Phosphatase 184 U/L (38-126) H 09/04/23 13:03
Impression/Plan
-
Impression/Plan:
Admit to MEd Surg
#Gangrene right 3rd toe with surrounding Cellulitis foot in Diabetic male
WBC 24.8 left shift afebrile. hr 86
- NPO after midnight for OR
-MRI foot
-Blood culture x1
- Iv Vanco, Iv Zosyn change to Cefepime
- consult Dr lynn
xray foot:Demineralized and diminutive distal phalanx of the third toe with suspected osseous erosive changes. Findings are suspicious for acute osteomyelitis. No soft tissue gas or radiopaque foreign body.
#DM2
BS 328
Accucheks with SSI, Check hgba1c
- Hold Metformin, Farxiga today for OR tmr
#RAYMOND on CKD 3B
creat 2.2 was 1.20 april 2023
- Iv NSS
- HOld metformin and Lisinopril
#Transaminitis in setting of ganrenous right great toe
- follow cmp
#Anemia Normocytic
hgb 9.8 baseline 11.5
check iron panel, b12 folate
#CAD/CABG
-cont BB, statin 40 mg hs
#HTN
BP 123/60
HOLD Lisinopril 10 mg daily due to RAYMOND/CKD
-cont amlodipine 5 mg daily
#HLD
-HOld statin due to transamintis
# renal calculi hx
occasional smoker
- cessation advised
Dvto proph
- scd' as pt due for OR tmr poss toe amputation
Full Code
[2023-09-04 15:55] LABS: Iron 26 ug/dl (49-181)
[2023-09-04 16:04] LABS: Percent Saturation 17 % (20-50); Total Iron Binding Capacity 146 ug/dl (261-462)
--- NOTE | 2023-09-04 16:46 | PHA.VAN.IN ---
Assessment
- Assessment
Renal Function: Appears elevated from baseline (05/03/23 BASELINE SCR: 1.5)
Concomitant Antimicrobials: CEFEPIME
- Previous Dosing Experience
Previous Regimen: 1500MG IV Q24H
Date of Regimen: 01/29/17
Provided Trough of: 10
Provided AUC of: UNKNOWN
Patient's SCR is: Elevated compared to previous dosing experience (01/29/17 SCR: 1.3)
Patient's weight is: Decreased compared to previous dosing experience (01/29/17 WT = 95 KG)
Plan
- Plan
Initial / Loading Dose: 2GM
Maintenance Regimen: DOSING BY RANDOM LEVELS
Monitoring: RANDOM VANCOMYCIN LEVEL 09/05/23 AM
Pharmacokinetics Vancomycin I
- -
Patient Age: 73
Patient Sex: Male
Vancomycin Day #: 1
Indication: Bone And Joint (GANGRENE OF TOES)
Requesting Provider: ANA
Height / Weight:
Height 6 ft 3 in
Actual Weight 89.103 kg
Pertinent Past Medical History: DM
- Vital Signs / Lab Results
Temp Pulse Resp BP Pulse Ox
97.7 F 79 18 139/62 99
09/04/23 16:33 09/04/23 16:33 09/04/23 16:33 09/04/23 16:33 09/04/23 16:33
Lab Results - Hematology
09/04/23
13:03
WBC 24.8 H
Lab Results - Chemistry
09/04/23
13:03
BUN 57 H
Creatinine 2.2 H
Estimated Creat Clear 36
Albumin 3.1 L
[2023-09-04] MEDS: NSS 1000 IV (16:57)
[2023-09-04 17:02] LABS: Folate > 20.0 ng/ml (2.76-20); Vitamin B12 > 1000 pg/ml (239-931)
[2023-09-04 17:42] LABS: Glucose - Point of Care 311 mg/dl (70-99)
[2023-09-04] MEDS: NOVOLOG FLEXPEN-MODERATE RESISTANCE 7 UNITS SC (17:43)
--- NOTE | 2023-09-04 18:31 | TRANSFER ---
Pt admitted into room 414-2 from ED, ambulated from stretcher to bed. AAOx3. Pt with medications from home, says no one can come to bring them in, 11 items sent to pharmacy to be stored. Pt with wound to right 3rd toe, for OR this admission. Plan of
care ongoing.
[2023-09-04 18:38] LABS: Hepatitis C Antibody Negative (Negative)
[2023-09-04] MEDS: MAXIPIME 1000 MG IV (20:46)
[2023-09-04] MEDS: TOPROL XL 50 MG PO (20:47)
[2023-09-04] MEDS: STERILE WATER FOR INJECTION 10 ML IV (20:47)
[2023-09-04] MEDS: TYLENOL 500 MG PO (20:55)
[2023-09-04 21:08] LABS: Glucose - Point of Care 265 mg/dl (70-99)
[2023-09-04] MEDS: DILAUDID 0.25 MG IV (21:59)
[2023-09-05] VITALS (11 sets, daily range): BP systolic 94–133; BP diastolic 51–67
[2023-09-05] MEDS: NSS 1000 IV (03:02)
[2023-09-05 06:10] LABS: Glucose - Point of Care 281 mg/dl (70-99)
[2023-09-05] MEDS: NOVOLOG FLEXPEN-MODERATE RESISTANCE 5 UNITS SC ×3 (06:23→18:28)
[2023-09-05] MEDS: TYLENOL 500 MG PO ×2 (06:28→19:37)
--- NOTE | 2023-09-05 07:04 | CON.MD ---
Consultation - Medical
-
73 year old male presented to my office yesterday as an emergency visit complaining of swelling and redness in the right foot. He was vacationing in [place] the last 3 weeks which included extensive walking and time at the beach. Admits the redness
and drainage have been present for a few weeks. Found to have malodor and drainage from the right foot with wet gangrene of the third toe and ascending cellulitis plantar right foot. Send directly to the ED for admission and scheduling of I and D
of the right foot with amputation of the 3rd toe.
PMH includes DM and CKD. Patient is afebrile WBC 24.8 with left shift . Radiographs show no gas in tissue but osseous changes in the right 3rd distal phalanx indicative of osteomyelitis. On exam, the entire 3rd toe is macerated with necrotic soft
tissue, malodor, swelling along the plantar foot extending up to the medial ankle with patient pain 5/10.
Impression/Plan
MRI ordered as abscess is likely at the plantar foot and extent and location of the abscess needs to be determined. To OR later today for I and D with amputation right 3rd toe. Discussed with patient that the purpose of the procedure is to remove
infectious soft tissue and bone. Additional surgery may be needed to eventually close the wound and more proximal amputation may be required.
[2023-09-05 08:29] LABS: % Basophils 0.3 % (0-2); % Eosinophils 0.1 % (0-6); % Immature Granulocytes 1.8 % (0-0.5); % Monocytes 5.9 % (1.7-9.3); % Neutrophils 88.9 % (42.2-75.2); Absolute Basophils 0.1 10^3/uL (0-0.2); Absolute Immature Granulocytes 0.4 10^3/uL (0-0.05); Absolute Lymphocytes 0.7 10^3/uL (1.2-3.4); Absolute Monocytes 1.3 10^3/uL (0.1-0.6); Absolute Neutrophils 19.3 10^3/uL (1.4-6.5); Hematocrit 25.8 % (39.0-52.0); Hemoglobin 8.9 g/dL (13.0-18.0); Mean Corp Hgb Conc. 34.5 g/dL (33.0-37.0); Mean Corpuscular Hgb 28.7 pg (27.0-31.0); Mean Corpuscular Volume 83.2 fL (80.0-94.0); Mean Platelet Volume 9.5 fL (7.4-10.4); Nucleated Red Blood Cells % 0 % (-); Platelet Count 358 10^3/uL (130-400); Red Cell Dist. Width 13.9 % (11.5-14.5); White Blood Cell Count 21.7 10^3/uL (4.8-10.8)
[2023-09-05] MEDS: VITAMIN C 1000 MG PO (08:43)
[2023-09-05] MEDS: STERILE WATER FOR INJECTION 10 ML IV (08:43)
[2023-09-05] MEDS: TOPROL XL 50 MG PO ×2 (08:43→19:36)
[2023-09-05] MEDS: MAXIPIME 1000 MG IV (08:43)
[2023-09-05 08:48] LABS: Vancomycin Random 11.8 ug/ml
[2023-09-05 09:04] LABS: AST (SGOT) 145 U/L (17-59); Albumin 2.7 g/dl (3.5-5.0); Blood Urea Nitrogen 53 mg/dl (9-20); Calcium 8.4 mg/dl (8.4-10.2); Carbon Dioxide 10 mmol/L (22-30); Estimated Creatinine Clearance 38 ml/min; Glucose 244 mg/dl (70-99); Potassium 3.9 mmol/L (3.5-5.1); Total Bilirubin 0.5 mg/dl (0.2-1.3); Total Protein 5.8 g/dl (6.3-8.2); eGFR 32.83
--- NOTE | 2023-09-05 09:32 | PHA.VAN.FU ---
Vancomycin Assessment / Plan
- Assessment
Renal Function: Stable
WBC's are: Trending Down
In the past 24 hrs, patient has been: Febrile
Concomitant Antimicrobials: cefepime
- Assessment - Therapeutic Drug Monitoring
Random Level: 11.8 - drawn ~18H after 2g loading dose
- Dosing Plan
Dosing by Level: Re-dose today (Vanc 1000mg)
- Monitoring Plan
Random Level: 09/05 06
- Follow Up
Pharmacy will continue to follow.
Vancomycin Follow UP
- -
Patient Age: 73
Patient Sex: Male
Vancomycin Day #: 2
Indication: Bone And Joint
Requesting Provider: Jordan Pascual
Pertinent Antimicrobial Allergies:
NKDA
Height / Weight:
Height 6 ft 3 in
Actual Weight 89.103 kg
Pertinent Past Medical History: DM, CKD
- Vital Signs / Lab Results
Temp Pulse Resp BP Pulse Ox
100.4 F H 90 16 124/59 95
09/05/23 08:00 09/05/23 08:43 09/05/23 08:00 09/05/23 08:43 09/05/23 08:00
Lab Results - Hematology
09/04/23 09/05/23
13:03 08:10
WBC 24.8 H 21.7 H
Lab Results - Chemistry
09/04/23 09/05/23
13:03 08:10
BUN 57 H 53 H
Creatinine 2.2 H 2.1 H
Estimated Creat Clear 36 38
Albumin 3.1 L 2.7 L
Therapeutic Drug Monitoring
Random Vancomycin 11.8 ug/ml 09/05/23 08:10
[2023-09-05 09:34] LABS: ALT (SGPT) 214 U/L (0-50); Alkaline Phosphatase 160 U/L (38-126); Chloride 111 mmol/L (98-107); Sodium 137 mmol/L (135-145)
[2023-09-05 10:16] LABS: Glycohemoglobin (HgbA1c) 10.1 % (4.0-5.6)
[2023-09-05 11:25] LABS: Venous Blood Gas B.E. -12.5 mmol/L (-4 to +4); Venous Blood Gas HCO3 14.4 mmol/L (22-27); Venous Blood Gas O2 Sat % 80.7 %; Venous Blood Gas pCO2 36 mmHg (35-48); Venous Blood Gas pH 7.21 (7.32-7.43); Venous Blood Gas pO2 52 mmHg (30-50)
[2023-09-05 11:33] LABS: Lactic Acid 0.9 mmol/L (0.7-2.0)
[2023-09-05 11:44] LABS: Glucose - Point of Care 268 mg/dl (70-99)
--- NOTE | 2023-09-05 11:54 | WOUNDNOTE ---
R 3RD TOE PLANTAR
--- NOTE | 2023-09-05 11:54 | WOUNDNOTE ---
L PLANTAR 2ND TOE
--- NOTE | 2023-09-05 11:56 | WOUNDNOTE ---
WON RN note: Patient admitted with gangrene of R 3rd toe.
See H&P for complete history.
PMH: NIDDM, CAD,Angina,HTN,R 1st toe amp by Dr. Ojeda in 2017,
Wound Location and type/assessment: Patient admitted with: Gangrene of R 3rd toe, sent to ER from Dr. Ojeda's office, for planned amputation of toe this afternoon. Plantar aspect of foot with greyish/purple discolored skin, flat blood blister
suspected. Patient states he was on vacation in [place] and swam in [facility] plus walked too much, 'It's my own fault.' L plantar 2nd toe with dry scab/callus that patient states Dr. Lester diaz down at apt's. Dry flat red scab, no drainage. + pulses
palpable on L foot, audible with Doppler on R foot.
Appetite: NPO
Pressure redistribution devices in place: On Accumax, turns self. Offloading shoe and WB status per Podiatry.
Plan: Changed dressing with adaptic and dry gauze, sabrina on R foot. L toe folded 2x2 gauze and tape applied.
Will confirm orders with hospitalist. Will follow peripherally and assist as needed.
Note to case management of equipment requested for discharge: TBD.
Recommend follow up with Dr. Ojeda.
--- NOTE | 2023-09-05 11:57 | WOUNDNOTE ---
SANDI RN note: Patient admitted with gangrene of R 3rd toe.
See H&P for complete history.
PMH: NIDDM, CAD,Angina,HTN,L 3rd toe surgery.
Wound Location and type/assessment: Patient admitted with: Gangrene of R 3rd toe, sent to ER from Dr. Ojeda's office, for planned amputation of toe this afternoon. Plantar aspect of foot with greyish/purple discolored skin, flat blood blister
suspected. Patient states he was on vacation in [place] and swam in ocean plus walked too much, 'It's my own fault.' L plantar 2nd toe with dry scab/callus that patient states Dr. Lester diaz down at apt's. Dry flat red scab, no drainage. + pulses
palpable on L foot, audible with Doppler on R foot.
Appetite: NPO
Pressure redistribution devices in place: On Accumax, turns self. Offloading shoe and WB status per Podiatry.
Plan: Changed dressing with adaptic and dry gauze, sabrina on R foot. L toe folded 2x2 gauze and tape applied.
Will confirm orders with hospitalist. Will follow peripherally and assist as needed.
Note to case management of equipment requested for discharge: TBD.
Recommend follow up with Dr. Ojeda.
--- NOTE | 2023-09-05 12:56 | CM ---
Patient seen bedside, initial assessment completed. Patient resides independently in a single story home, three steps to enter. Patient denies the use of DME, VN, or SNF history. Patient confirms PCP Gene Banks, pharmacy [facility] in [place],
confirms prescription coverage. Patient denies food, housing/utility, transportation insecurities at home. Patient for OR later today, will follow for needs upon discharge.
Plan; watch for VN needs.
[2023-09-05] MEDS: NORVASC 5 MG PO (13:04)
[2023-09-05] MEDS: ROXICODONE 5 MG PO ×2 (13:04→20:27)
[2023-09-05] MEDS: VANCOCIN 200 IV (13:19)
[2023-09-05] MEDS: NSS IV (13:39)
--- NOTE | 2023-09-05 14:00 | W.PN.HOSP.TC ---
Addendum entered and electronically signed by Nik Alvarez MD 09/05/23 14:33:
MRI showed possible gas in tissues, tenosynoviitis, gangrenous changed in 3rd metatarsal and 3rd proximal phalanx, diffuse devascularization
Add Clinda
ID consult called
Original Note:
Today's Communication/Plan
-
IV bicarb
Nephro consult
Podiatry for I&D
Assessment / Plan
Assessment / Plan
73yo M with PMHx of DM, HTN, HLD came with c/o worsening discoloration of R toes. 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
#R multiple marquis gangrene
XR showed no gas in the tissues
Vanco/cefepime
Bcx
Podiatry to follow
ESR/CRP to be followed
#HAGMA most likely 2/2 infection
#CKD stage 3b with createnine elevation (not in RAYMOND range)
follow Cr baseline 2.0
hold ACEi
provide mild hydration
#Transaminitis
most likely 2/2 RLE infection
no abd pain
hepatitis C Ab neg
#Anemia of chronic disease with REGGIE complicated by anemia 2/2 CKD
treat infection
Iron PO upon d/c
#DM type 2 with circulatory complications
Hold Farxiga
Insulin SS, Accuchecks, DM diet
HgbA1c 10.1% - start Lantus
DM educator
#HLD
hold statin
#Nicotine dependency
Nicoderm PRN
#ASCVD
cont BB
DVT ppx hep
Full code
I have spent at least 56 min reviewing chart, test results, communication with consultants and direct patient care
Anticipated Discharge: > 48 hours
Subjective/Interval History
-
Date of Service: September 05, 2023
Objective Data
-
Labs:
Laboratory Results
09/05/23
08:10
WBC 21.7 H
Hgb 8.9 L
Hct 25.8 L
Plt Count 358
Sodium 137
Potassium 3.9
Chloride 111 H
Carbon Dioxide 10 L*
BUN 53 H
Creatinine 2.1 H
Glucose 244 H
Calcium 8.4
Total Bilirubin 0.5
AST 145 H
ALT 214 H
Alkaline Phosphatase 160 H
Vital Signs:
Vital Signs
Temp Pulse Resp BP Pulse Ox
100.4 F H 85 16 144/86 95
09/05/23 08:00 09/05/23 13:04 09/05/23 08:00 09/05/23 13:04 09/05/23 08:00
I&O
09/04/23 09/05/23 09/06/23
06:59 06:59 06:59
Intake Total 1260 / 1260
Output Total 100 / 100
Balance 1160 / 1160
Review of Systems
-
History Source: Patient
Constitutional: Reports Fever
Physical Exam
-
General: Well Developed, Well Nourished and No Apparent Distress
Respiratory: Clear to Auscultation
Cardiac: Regular Rhythm
GI: Soft, Nontender and Nondistended
Genito-urinary: No Costovertebral Tender
Skin: Warm and Other (R toes )
Neuro: Awake, Alert, Oriented and AO x 3
Psych: Calm
--- NOTE | 2023-09-05 15:43 | W.PN.UPDATE ---
Update Note
Progress Note Update
I and D right foot with amputation right 3rd toe. Significant abscess plantar along the FDL tendon to the mid arch. Patient tolerated procedure and amputation without complications. Wound cultures and bone culture taken. Surgical site packed open
to be removed by me tomorrow. May weight bear with heel touch only.
[2023-09-05 16:04] LABS: Glucose - Point of Care 241 mg/dl (70-99)
[2023-09-05] MEDS: NOVOLOG vial 2 UNITS SC (16:14)
--- NOTE | 2023-09-05 16:21 | CON.ID ---
Consultation
-
Date/Time Consultation Requested: 09/05/2023 1409
Date/Time Consultation Performed: 09/05/2023 1615
Requesting Provider: Dr. Alvarez
Performing Provider: Dr. Burgos
Reason for Consultation: Foot infection
Chief Complaint / Past History
History of Present Illness
Flaqiuto Jamil is a 73-year-old man being evaluated at the request of Dr. Alvarez in regards to right foot infection. History is obtained from chart review, along with patient interview. The patient has an underlying history of diabetes mellitus
and presents to [facility] on 09/04/2023 due to right foot pain. He reports that over the past 2 weeks has had progressive discomfort of the foot. He recently had been on vacation in [place] and reports significant ambulation, and also
ocean exposure. Over that time he had progressive darkening of his third toe, with erythema extending onto the foot.
In the emergency room he was evaluated and started on empiric antibiotics. He has also been evaluated by Podiatry and today was taken to the OR for exploration. He is currently status post I&D of the foot with amputation of the right third toe.
Infectious Diseases is asked to comment upon further antimicrobial management.
He reports that he did a lot of walking around while he was in [place]. He reports walking barefoot on the beach, and in the ocean. He admits to some degree of neuropathy. He is not sure if he stepped on anything. He denies any spreading
erythema up his leg. He denies any inguinal adenopathy.
Past History
Additional Past Medical History:
CAD
HTN
Dyslipidemia
DM type II (uncontrolled; A1c = 10.1)
Nephrolithiasis
Additional Past Surgical History:
CABG
Appendectomy
Allergy History:
No Known Allergies Allergy (Verified 09/04/23 11:50)
Medications Reviewed: Yes
Current Antibiotics:
Cefepime 1 g every 12
Clindamycin 600 mg IV every 8 hours
Vancomycin (dosing per pharmacy)
Social History
Tobacco: Smoker
Alcohol: Occasional
Drug: None
Personal: Single
Living: Alone
Employment: Retired
Family History
Family History: Not Pertinent
Review of Systems
Vital Signs
Temp Pulse Resp BP Pulse Ox
100.4 F H 71 22 106/51 98
09/05/23 08:00 09/05/23 16:15 09/05/23 16:15 09/05/23 16:15 09/05/23 16:15
Physical Exam
Physical Exam
Constitutional: No Acute Distress, Well Developed, Comfortable and Non-toxic
Head: Normocephalic
Eyes: Pupils Equal, Pupils Round, No Conjunctival Hemorrhage and Sclera Anicteric
Cardiovascular: Regular Rate and S1/S2; Negative S3/S4
Pulmonary: Clear; Negative Wheezes, Rales or Rhonchi
Gastrointestinal: Soft, Non Tender, Non Distended, Normal Bowel Sounds, No Rebound and No Guarding
Genito-Urinary: Negative Caraballo
Extremities: Edema (1+ LLE); Negative Erythema
Wound: Other (Right foot currently dressed in Regan wrap in the immediate postop period. Dressing not taken down. No erythema extending above ankle.)
Neurological: Awake
Psychological: Calm
Lab / Diagnostic Study Results
09/05/23 08:10
09/05/23 08:10
Abs Immat Gran (auto) 0.4 10^3/uL (0-0.05) H 09/05/23 08:10
Absolute Neuts (auto) 19.3 10^3/uL (1.4-6.5) H 09/05/23 08:10
Absolute Lymphs (auto) 0.7 10^3/uL (1.2-3.4) L 09/05/23 08:10
Absolute Monos (auto) 1.3 10^3/uL (0.1-0.6) H 09/05/23 08:10
Absolute Basos (auto) 0.1 10^3/uL (0-0.2) 09/05/23 08:10
Immature Gran % 1.8 % (0-0.5) H 09/05/23 08:10
Neutrophils % 88.9 % (42.2-75.2) H 09/05/23 08:10
Lymphocytes % 3.0 % (20.5-51.1) L 09/05/23 08:10
Monocytes % 5.9 % (1.7-9.3) 09/05/23 08:10
Eosinophils % 0.1 % (0-6) 09/05/23 08:10
Basophils % 0.3 % (0-2) 09/05/23 08:10
ESR 111 mm/hour (0-20) H 09/04/23 13:03
Lactic Acid 0.9 mmol/L (0.7-2.0) 09/05/23 11:13
C-Reactive Protein > 270.00 mg/L (0.0-10.00) H 09/04/23 13:03
Microbiology Results
Micro:
09/05/23 16:11 Wound Culture - Pending
Foot - Right Gram Stain - Pending
09/05/23 16:09 Wound Culture - Pending
Foot - Right Gram Stain - Pending
09/05/23 Unknown Anaerobic Culture - Pending
Foot - Right
09/05/23 Unknown Anaerobic Culture - Pending
Foot - Right
09/04/23 13:03 Blood Culture - Preliminary
Blood/Venous No Growth in 24 hours- Final report to follow
09/04/23 19:50 MRSA Screen - Pending
Nose
Imaging:
09/05/2023 Plain film right foot: There has been interval resection of the right third digit at the level of the distal metatarsal bone. There is plantar soft tissue area which appears to be mainly in the region of the second and third metatarsal
bones. There is also a small amount of air off the posterior and superior margin of the calcaneus, anterior to the distal Achilles tendon, unchanged from earlier radiographs. Please see full dictation for additional detail.
09/05/2023 MRI right lower extremity: Numerous rounded foci of decreased signal intensity within the soft tissues of the distal right foot consistent with foci of soft tissue air. There is also concern for foci of air into the third metatarsal bone
and proximal phalanx of the right third toe. Please see full dictation for additional detail.
Assessment / Plan
Right foot gangrene
-S/p I&D and resection of third toe
Leukocytosis
RAYMOND on CKD
Transaminitis
Elevated ESR and CRP
CAD
HTN
Dyslipidemia
DM type II (uncontrolled; A1c = 10.1)
Nephrolithiasis
Recommendations:
Consolidate antibiotics to Zosyn and vancomycin.
Await further cultures to guide further antimicrobial selection and potential de-escalation.
Monitor white count and temperature curve.
Lower extremity elevation.
Tight glucose control.
Given uncontrolled diabetes along with neuropathy, patient is at high risk for limb loss.
--- NOTE | 2023-09-05 16:32 | W.CON.NEPH ---
Consultation
-
Date/Time Consultation Requested: 09/05/23 1207
Date/Time Consultation Performed: 09/05/23 1700
Requesting Provider: Nik Osorio
Performing Provider: Jaki Barkley
Reason for Consultation: ckd, worsening met acidosis
Medical History
-
Chief Complaint: Rt foot gangree
History of Present Illness:
73 year old male with PMH of CAD s/p CABG, uncontrolled diabetes on metformin, Farxiga, CKD3b baseline creatinine of 1.4-1.7 felt to be diabetic nephropathy, hypertension on lisinopril, metoprolol and amlodipine, K stone who presented to the ER on
09/03 with complaining of painful foul smelling right foot toe for the past 2 weeks after walking lot on vacation and being in the ocean in [place] for the past 2 weeks. he reports foul smelling drainage over the last 4 days with dark black toe and
erythema to toe extending to dorsal and plantar foot . He was seen by Podiatry Dr Donovan and underwent Debridement and 3rdtoe amputation today. He denies fever chills, Cp, sob, cough, abd pain, nausea, vomiting diarrhea or urinary symptoms.
Currently his creatinine at 2.1, had a mild metabolic acidosis on admission bicarbonate of 15. Today it is worse bicarbonate of 10 with gap since nephrology consulted. he is started on the bicarbonate IV fluids by primary. Lactic acid was 0.9.
He has known h/o K stones, most recently in April, did not require intervention. He was drinking lot if ice tea which he stopped now.
Past Medical History
CAD/Cabg x 3 vessel
HTN
HLD
DM2
Renal calculi
CKD3b
Past Surgical History: Other (CABG x3 vessel appendectomy)
Social History
Tobacco: Non-Smoker
Alcohol: Occasional
Drug: None
Living: Alone
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
Family History
Mother with DM
no known ckd
Allergies / Home Medications
Allergy/AdvReac Type Severity Reaction Status Date / Time
No Known Allergies Allergy Verified 09/04/23 11:50
�Medication �Instructions �Recorded �Confirmed �Type
amlodipine 5 mg tablet 5 mg PO DAILY ##0 03/25/14 09/04/23 Rx
ascorbic acid (vitamin C) 1,000 mg 1,000 mg PO DAILY 05/02/23 09/04/23 History
tablet (Vitamin C)
dapagliflozin propanediol 10 mg 10 mg PO DAILY 05/02/23 09/04/23 History
tablet (Farxiga)
metoprolol succinate 50 mg 50 mg PO BID 05/02/23 09/04/23 History
tablet,extended release 24 hr
lisinopril 20 mg tablet 10 mg (1/2 x 20 mg) PO DAILY #0 05/03/23 09/04/23 Rx
tabs
atorvastatin 40 mg tablet 40 mg PO HS 09/04/23 09/04/23 History
metformin 500 mg tablet 1,000 mg PO BIDWMEAL 09/04/23 09/04/23 History
alsmnfisnmqs-gex-zekwb acid-vit 1 tab PO DAILY 09/04/23 09/04/23 History
K-lycop 400 mcg-20 mcg-370 mcg
tablet (Men's 50 Plus Multivitamin)
omega 8-csp-ctq-fish oil 1,000 mg 1 cap PO DAILY 09/04/23 09/04/23 History
(120 mg-180 mg) capsule (Fish Oil)
Review of Systems
-
All complete 12 point ROS have been inquired and found negative other than stated in HPI
Physical Exam
Vital Signs
Vital Signs
Temp Pulse Resp BP Pulse Ox
99.5 F 71 22 106/51 98
09/05/23 15:48 09/05/23 16:15 09/05/23 16:15 09/05/23 16:15 09/05/23 16:15
Lab Results
WBC 21.7 10^3/uL (4.8-10.8) H 09/05/23 08:10
RBC 3.10 10^6/uL (4.70-6.10) L 09/05/23 08:10
Hgb 8.9 g/dL (13.0-18.0) L 09/05/23 08:10
Hct 25.8 % (39.0-52.0) L 09/05/23 08:10
Plt Count 358 10^3/uL (130-400) 09/05/23 08:10
Sodium 137 mmol/L (135-145) 09/05/23 08:10
Potassium 3.9 mmol/L (3.5-5.1) 09/05/23 08:10
Chloride 111 mmol/L (98-107) H 09/05/23 08:10
Carbon Dioxide 10 mmol/L (22-30) L* 09/05/23 08:10
BUN 53 mg/dl (9-20) H 09/05/23 08:10
Creatinine 2.1 mg/dL (0.7-1.3) H 09/05/23 08:10
eGFR 32.83 09/05/23 08:10
Glucose 244 mg/dl (70-99) H 09/05/23 08:10
Calcium 8.4 mg/dl (8.4-10.2) 09/05/23 08:10
Albumin 2.7 g/dl (3.5-5.0) L 09/05/23 08:10
MRI of the foot:
IMPRESSION: Numerous rounded foci of decreased signal intensity within the soft tissues of the distal right foot, centered around the third digit, but also extending from the lateral aspect of the second digit the fifth digit. These likely represent
foci of soft tissue air from soft tissue ganglion is changes.
There are small foci of decreased T1-weighted signal extending into the head of the third metatarsal bone and the proximal phalanx of the right third toe, suspicious for foci of air extending into the bones, and would suggest gangrenous changes of
these bones.
There is loss of enhancement of the soft tissues from the lateral second digit through the fifth digit, beginning from the level of the mid metatarsal bones through the distal foot, and this would suggest diffuse devascularization of the soft
tissues of the foot in this region.
There is fluid surrounding the flexor digitorum tendon at the level of the proximal metatarsal bones, which is likely complex tenosynovitis.
Physical Exam
General: Awake, Alert, Oriented, AOx3, No Distress and Nontoxic
HEENT: EOMI and Anicteric
Respiratory: Clear, Normal Excursion and Nonlabored Respirations
Cardiac: S1/S2 and Regular Rate/Rhythm
Breast: Deferred by me
Abdomen: Soft, Nontender and Nondistended
Musculoskeletal: No Cyanosis and Edema (trace left ankle edema)
Skin: No Rash
Neuro: Nonfocal/Grossly Intact
Psych: Mood/afflect pleasant, Insight/judgement good and Appropriate
Data Reviewed
-
Radiology: Report Reviewed by me
Labs: Labs Reviewed by me and Discussed with Patient
Assessment/Plan
-
IMP:
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
HAGMA
RAYMOND with CKD stage 3b baseline cr 1.4-1.7
Transaminitis
Anemia of chronic disease with REGGIE complicated by anemia 2/2 CKD
DM type 2 with circulatory complications
HLD
Nicotine dependency
ASCVD
Hypoalbuminemia
Plan:
A/w right foot gangrene and s/p i&d with 3rd toe amp
abx per ID and await for cx
RAYMOND-suspect from sepsis, check UA and U lytes, U PCR
follow bladder scan, check renal US for baseline
CT results noted from April with hydro after passing stone
agree with bicarb IVF
hold Farxiga, ACEI and metformin
BP are soft , meds with holding parameters
for kidney stone-check PTH
anemia-follow h/h, fe def, can start IV fe later once found no bacteremia
renal dose meds, avoid nephrotoxins
d/w pt
[2023-09-05] MEDS: ZOSYN 50 IV (17:32)
[2023-09-05 17:33] LABS: Venous Blood Gas B.E. -11.9 mmol/L (-4 to +4); Venous Blood Gas HCO3 14.7 mmol/L (22-27); Venous Blood Gas O2 Sat % 99.6 %; Venous Blood Gas pCO2 35 mmHg (35-48); Venous Blood Gas pH 7.23 (7.32-7.43); Venous Blood Gas pO2 196 mmHg (30-50)
[2023-09-05 17:53] LABS: Glucose - Point of Care 261 mg/dl (70-99)
[2023-09-05] MEDS: SODIUM BICARBONATE 1150 MEQ IV (18:25)
[2023-09-05 20:48] LABS: Urine Albumin Trace (Neg - Trace); Urine Bilirubin Negative (Negative); Urine Character Clear (Clear); Urine Color Yellow; Urine Glucose 3+ (Negative); Urine Ketone 1+ (Negative); Urine Leukocyte Negative (Negative); Urine Nitrite Negative (Negative); Urine Occult Blood Negative (Negative); Urine Specific Gravity 1.015 (<1.030); Urine Urobilinogen Negative (Neg - 1+)
[2023-09-05 21:27] LABS: Protein/creatinine Ratio 0.7; Urine Protein 39 mg/dl; Urine Sodium 33 mmol/L (30-90)
[2023-09-05 21:31] LABS: Glucose - Point of Care 355 mg/dl (70-99)
[2023-09-05] MEDS: LANTUS 0.05 UNITS SC (21:43)
[2023-09-06] MEDS: ZOSYN 50 IV ×5 (00:12→23:02)
[2023-09-06 03:38] VITALS: BP 109/54
[2023-09-06 07:00] VITALS: BP 95/48
[2023-09-06] MEDS: NORVASC 2.5 MG PO (07:58)
[2023-09-06] MEDS: TOPROL XL 50 MG PO ×2 (07:58→22:04)
[2023-09-06] MEDS: VITAMIN C 1000 MG PO (07:58)
[2023-09-06 08:04] LABS: Glucose - Point of Care 386 mg/dl (70-99)
--- NOTE | 2023-09-06 08:04 | PN.DE.MGMTRT ---
Insulin Management
- -
09/06/2023: Diabetes Management Consult
73 year old male admitted with worsening discoloration of Right foot toes due to multiple toe gangrene and RLE tenosynovitis. MRI noted for gas in the tissues
PMH: ASCVD, HTN, HLD, CKD IIIb, Anemia of chronic disease with REGGIE complicated by anemia 2/2 CKD, Nicotine dependency and T2DM. Was taking Metformin 1000 mg BID and Farxiga 10mg daily prior to admission. A1C 10.1%, Cr 2.1-->2.3, eGFR 29.43 today
Pt awake, A/Ox3, resting up in bed, offers no complaints, able to discuss diabetes mgt.
Discussed current A1C and glucose trend, pt made aware that insulin is the only safe option for mgt, given CKD with uptrending Cr.
Pt was hesitant at first stating that he was hoping he wouldn't need insulin because he lives on a fixed budget but was agreeable when he learned that insurance will likely cover most of the cost of his insulin especially if he didn't have any
issues with coverage of Farxiga.
He is noted for persistent Hyperglycemia since admission, his OP oral meds are on hold 2/2 RAYMOND on CKD
He was started on Lantus 5 units @ HS, fasting 377 this AM, 09/04 premeal range was 241 to 281, requiring 5-9 units of corrective insulin
Will give Lantus 15 units now and increase HS Lantus to 20 units.
Start NovoLog 7 units AC and change to moderate corrective. STOP MFM and Farxiga given eGFR of <30
Pt reports he does not have a glucose meter but is familiar with insulin administration
Will return to provide glucose monitor and insulin instructions this afternoon.
Diabetes History
- -
Type of Diabetes: 2 requiring insulin
Pre-Admission Diabetes Regimen
09/05/23
08:10
Creatinine 2.1 H
Lab Results
Hemoglobin A1c 10.1 % (4.0-5.6) H 09/05/23 08:10
Insulin Pump Settings
IP Diabetes Regimen
09/05/23 09/05/23 09/05/23
08:10 11:43 16:04
Glucose 244 H
POC Glucose 268 H 241 H
09/05/23 09/05/23 09/06/23
17:51 21:21 08:03
Glucose
POC Glucose 261 H 355 H 386 H
Patient Education
[2023-09-06] MEDS: NOVOLOG FLEXPEN-MODERATE RESISTANCE 9 UNITS SC (09:38)
[2023-09-06] MEDS: NOVOLOG FLEXPEN 7 UNITS SC ×3 (09:38→19:10)
[2023-09-06] MEDS: LANTUS 0.15 UNITS SC (09:38)
[2023-09-06 10:01] LABS: Vancomycin Random 13.8 ug/ml
[2023-09-06 10:35] LABS: ALT (SGPT) 171 U/L (0-50); AST (SGOT) 101 U/L (17-59); Albumin 2.6 g/dl (3.5-5.0); Alkaline Phosphatase 158 U/L (38-126); Blood Urea Nitrogen 66 mg/dl (9-20); Calcium 7.9 mg/dl (8.4-10.2); Carbon Dioxide 14 mmol/L (22-30); Chloride 100 mmol/L (98-107); Estimated Creatinine Clearance 35 ml/min; Glucose 377 mg/dl (70-99); Potassium 4.1 mmol/L (3.5-5.1); Sodium 133 mmol/L (135-145); Total Bilirubin 0.6 mg/dl (0.2-1.3); Total Protein 5.6 g/dl (6.3-8.2); eGFR 29.43
[2023-09-06 10:51] LABS: Hematocrit 27.2 % (39.0-52.0); Hemoglobin 9.2 g/dL (13.0-18.0); Mean Corp Hgb Conc. 33.8 g/dL (33.0-37.0); Mean Corpuscular Hgb 28.5 pg (27.0-31.0); Mean Corpuscular Volume 84.2 fL (80.0-94.0); Mean Platelet Volume 9.6 fL (7.4-10.4); Platelet Count 373 10^3/uL (130-400); Red Blood Cell Count 3.23 10^6/uL (4.70-6.10); Red Cell Dist. Width 13.6 % (11.5-14.5); White Blood Cell Count 25.2 10^3/uL (4.8-10.8)
--- NOTE | 2023-09-06 10:59 | W.PN.HOSP.TC ---
Today's Communication/Plan
-
cont ABx and IVF
pending Cx
Assessment / Plan
Assessment / Plan
73yo M with PMHx of DM, HTN, HLD came with c/o worsening discoloration of R toes. 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
#R multiple toes gangrene
#RLE tenosynovitis
MRI with gas in the tissues
Vanco/ZOsyn, ID consult
Bcx NTD
Podiatry to follow
ESR/CRP to be followed
#HAGMA most likely 2/2 infection
#CKD stage 3b with creatinine elevation (not in RAYMOND range)
follow Cr baseline 2.0
hold ACEi
provide IVF with bicarb
Nephro consult
#Transaminitis
#Elevated alk.phos
most likely 2/2 RLE infection
no abd pain
hepatitis C Ab neg
#Anemia of chronic disease with REGGIE complicated by anemia 2/2 CKD
treat infection
Iron PO upon d/c
#DM type 2 with circulatory complications
Hold Farxiga
Insulin SS, Accuchecks, DM diet
HgbA1c 10.1% - start Lantus
DM educator
#HLD
hold statin
#Nicotine dependency
Nicoderm PRN
#ASCVD
cont BB
DVT ppx hep
Full code
I have spent at least 56 min reviewing chart, test results, communication with consultants and direct patient care
Anticipated Discharge: > 48 hours
Subjective/Interval History
-
Date of Service: September 06, 2023
Objective Data
-
Labs:
Laboratory Results
09/06/23
09:15
WBC 25.2 H
Hgb 9.2 L
Hct 27.2 L
Plt Count 373
Sodium 133 L
Potassium 4.1
Chloride 100
Carbon Dioxide 14 L*
BUN 66 H
Creatinine 2.3 H
Glucose 377 H
Calcium 7.9 L
Total Bilirubin 0.6
AST 101 H
ALT 171 H
Alkaline Phosphatase 158 H
Vital Signs:
Vital Signs
Temp Pulse Resp BP Pulse Ox
98.0 F 72 12 117/57 95
09/06/23 07:00 09/06/23 07:58 09/06/23 07:00 09/06/23 07:58 09/06/23 07:00
I&O
09/05/23 09/06/23 09/07/23
06:59 06:59 06:59
Intake Total 1260 / 1260 2250 / 2250
Output Total 100 / 100 800 / 800
Balance 1160 / 1160 1450 / 1450
Review of Systems
-
History Source: Patient
All other systems: Reviewed and negative
Physical Exam
-
General: Well Developed and Well Nourished
HEENT: Normocephalic and Atraumatic
Respiratory: Clear to Auscultation
Cardiac: Regular Rhythm
GI: Soft, Nontender and Nondistended
Genito-urinary: No Costovertebral Tender
Musculoskeletal: No Clubbing and No Cyanosis
Skin: Warm
Neuro: Awake, Alert, Oriented and AO x 3
Psych: Calm
[2023-09-06 11:00] VITALS: BP 105/49
--- NOTE | 2023-09-06 11:03 | PHA.VAN.FU ---
Vancomycin Assessment / Plan
- Assessment
Renal Function: Stable
WBC's are: Trending Up
In the past 24 hrs, patient has been: Afebrile
Concomitant Antimicrobials: piperacillin/tazobactam
- Assessment - Therapeutic Drug Monitoring
Random Level: 13.8 - drawn ~20H after previous dose of 1g
- Dosing Plan
Dosing by Level: Re-dose today (Vanc 1000mg)
- Monitoring Plan
Random Level: 09/06 06
- Follow Up
Pharmacy will continue to follow.
Vancomycin Follow UP
- -
Patient Age: 73
Patient Sex: Male
Vancomycin Day #: 3
Indication: [facility]
Requesting Provider: Jordan Pascual / Shamir
Pertinent Antimicrobial Allergies:
NKDA
Height / Weight:
Height 6 ft 3 in
Actual Weight 89.103 kg
Pertinent Past Medical History: DM, CKD
- Vital Signs / Lab Results
Temp Pulse Resp BP Pulse Ox
98.0 F 72 12 117/57 95
09/06/23 07:00 09/06/23 07:58 09/06/23 07:00 09/06/23 07:58 09/06/23 07:00
Lab Results - Hematology
09/04/23 09/05/23 09/06/23
13:03 08:10 09:15
WBC 24.8 H 21.7 H 25.2 H
Lab Results - Chemistry
09/04/23 09/05/23 09/06/23
13:03 08:10 09:15
BUN 57 H 53 H 66 H
Creatinine 2.2 H 2.1 H 2.3 H
Estimated Creat Clear 36 38 35
Albumin 3.1 L 2.7 L 2.6 L
09/05/23
11:13
Lactic Acid 0.9
Lab Results - Urine
09/05/23
20:34
Urine Nitrite Cancelled
Urine Nitrite (Reflex) Negative
Ur Leukocyte Esterase Cancelled
Leukocyte Esterase Rfl Negative
Microbiology Results
09/04/23 19:50 MRSA Screen - Final
Nose No Methicillin Resistant Staphylococcus aureus isolated.
09/05/23 16:09 Gram Stain - Preliminary
Foot - Right
09/05/23 16:11 Gram Stain - Preliminary
Foot - Right
09/04/23 13:03 Blood Culture - Preliminary
Blood/Venous No Growth in 24 hours- Final report to follow
Therapeutic Drug Monitoring
Random Vancomycin 13.8 ug/ml 09/06/23 09:15
--- NOTE | 2023-09-06 11:12 | CM ---
Patient seen bedside, reports no needs to CM at this time. Patient remains on IV antibiotics. CM will continue to follow for all discharge planning needs, watch for VN needs upon discharge.
Plan; home no needs, watch for VN needs.
[2023-09-06] MEDS: SODIUM BICARBONATE 1150 MEQ IV (11:43)
[2023-09-06 11:47] LABS: Glucose - Point of Care 506 mg/dl (70-99)
--- NOTE | 2023-09-06 12:36 | W.PN.POD ---
Today's Communication
Today's Communication
Await OR cultures
Clinical improvement noted
Assessment / Plan
-
Right LE cellulitis with 3rd toe gangrene
-MRI report stated gas in plantar soft tissue at the level of the metatarsal heads with no distinct abscess
-One day status post I and D right foot with amputation 3rd toe and metatarsal head
Significant surrounding soft tissue necrosis present with purulence along the flexor tendon sheath extending to the plantar arch
Packed open. No further malodor and cellulitis receding. Color of adjacent toes improving
Patient states much less pain and generally feeling better
OR cultures pending
Latest WBC 25.2. With the significant amount of purulence expressed in the OR, expect this to trend lower by tomorrow. Appreciate ID input
-DM uncontrolled with peripheral neuropathy
HgbA1c 10.1
-RAYMOND on CKD
Subjective
Chief Complaint
Patient admitted for RLE cellulitis and right 3rd toe gangrene after a recent trip to [place] including ocean exposure. Sent to the ED immediately from my office.
Subjective
Patient sitting in bed stating much less pain and generally feeling better.
Objective
Temp Pulse Resp BP Pulse Ox
98.0 F 71 14 105/49 97
09/06/23 11:00 09/06/23 11:00 09/06/23 11:00 09/06/23 11:00 09/06/23 11:00
09/06/23 09:15
Vital Signs and Lab results were reviewed.
Inspection: Cellulitis (cellulitis now receding to the arch from medial ankle), Inflammation (decreased foot and ankle swelling, right), Ulcer (Incision site stable with no malodor and no further purulent drainage. retention sutures in tact and
packing in place) and Infection (Serous drainage only with no purulence or malodor. Wound edges stable)
Review of Systems
Review of Systems
Review of Systems: No Fever and No Chills
[2023-09-06 12:41] LABS: Glucose 445 mg/dl (70-99)
[2023-09-06] MEDS: NOVOLOG FLEXPEN-MODERATE RESISTANCE SC (13:16)
[2023-09-06] MEDS: NOVOLOG FLEXPEN 12 UNITS SC (13:18)
[2023-09-06] MEDS: VANCOCIN 200 IV (13:21)
--- NOTE | 2023-09-06 14:14 | W.PN.NEPH.PH ---
Today's Communication / Plan
-
- c/w sodium bicarb infusion and amp
Assessment/Plan
-
IMP:
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
HAGMA
RAYMOND with CKD stage 3b baseline cr 1.4-1.7
Transaminitis
Anemia of chronic disease with REGGIE complicated by anemia 2/2 CKD
DM type 2 with circulatory complications
HLD
Nicotine dependency
ASCVD
Hypoalbuminemia
Plan:
A/w right foot gangrene and s/p i&d with 3rd toe amp
abx per ID and await for cx
RAYMOND-suspect from sepsis, UA with some ketones/glucose
KUS with no hydro, normal size kidneys
CT results noted from April with hydro after passing stone
repeat bicarb fluids today and give 1amp bicarb
hold Farxiga, ACEI and metformin
BP are soft, meds with holding parameters
for kidney stone-check PTH
anemia-follow h/h, fe def, can start IV fe later once found no bacteremia
renal dose meds, avoid nephrotoxins
d/w pt
-
-
Date of Service: September 06, 2023
CC / HPI / ROS
-
Chief Complaint:
RAYMOND
History of Present Illness:
Cr elevated to 2.3 today, baseline likely 1.5-1.7
gangrenous toes
ACD
T2DM
Review of Systems:
making good urine
Labs
-
Labs:
WBC 25.2 10^3/uL (4.8-10.8) H 09/06/23 09:15
RBC 3.23 10^6/uL (4.70-6.10) L 09/06/23 09:15
Hgb 9.2 g/dL (13.0-18.0) L 09/06/23 09:15
Hct 27.2 % (39.0-52.0) L 09/06/23 09:15
Plt Count 373 10^3/uL (130-400) 09/06/23 09:15
Sodium 133 mmol/L (135-145) L 09/06/23 09:15
Potassium 4.1 mmol/L (3.5-5.1) 09/06/23 09:15
Chloride 100 mmol/L (98-107) 09/06/23 09:15
Carbon Dioxide 14 mmol/L (22-30) L* 09/06/23 09:15
BUN 66 mg/dl (9-20) H 09/06/23 09:15
Creatinine 2.3 mg/dL (0.7-1.3) H 09/06/23 09:15
eGFR 29.43 09/06/23 09:15
Glucose 445 mg/dl (70-99) H 09/06/23 12:11
Calcium 7.9 mg/dl (8.4-10.2) L 09/06/23 09:15
Albumin 2.6 g/dl (3.5-5.0) L 09/06/23 09:15
Physical Exam
-
Vital Signs:
Vital Signs
Temp Pulse Resp BP Pulse Ox
98.0 F 71 14 105/49 97
09/06/23 11:00 09/06/23 11:00 09/06/23 11:00 09/06/23 11:00 09/06/23 11:00
Cardiovascular:: Regular rate and rhythm
Respiratory:: Bilateral: Coarse
Lung Excursion:: Normal
Abdomen:: Nontender and Soft
Bowel Sounds:: Normal
Extremity Edema:: None: Right: (wrapped) and None: Left:
Caraballo Catheter: No
[2023-09-06] MEDS: ROXICODONE 5 MG PO ×2 (14:44→22:12)
[2023-09-06 15:00] VITALS: BP 121/56
--- NOTE | 2023-09-06 15:06 | W.PN.ID1 ---
Date of Service
Date of Service: September 06, 2023
Today's Communication
Continue antibiotics.
Assessment / Plan
Right foot gangrene
-S/p I&D and resection of third toe 09/05/2023
Leukocytosis
RAYMOND on CKD
Transaminitis
Elevated ESR and CRP
CAD
HTN
Dyslipidemia
DM type II (uncontrolled; A1c = 10.1)
Nephrolithiasis
Recommendations:
Continue Zosyn and Vanco for today.
Await further cultures to guide further antimicrobial selection and potential de-escalation.
Monitor white count and temperature curve. Current rise in leukocytosis is likely secondary to yesterday surgery.
Lower extremity elevation.
Tight glucose control.
Given uncontrolled diabetes along with neuropathy, patient is at high risk for limb loss.
����������������������������������������������������������
Chief Complaint
-: Other (Right foot gangrene)
Subjective / Review of Systems
Patient seen and examined. Reports no specific complaints at present. Tolerating antibiotics. Little significant discomfort in the foot. No fevers or chills.
Vital Signs / Physical Exam
Vital Signs
Vital Signs
Temp Pulse Resp BP Pulse Ox
98.0 F 71 14 105/49 97
09/06/23 11:00 09/06/23 11:00 09/06/23 11:00 09/06/23 11:00 09/06/23 11:00
Physical Exam
Constitutional: No Acute Distress, Comfortable and Non-toxic
Cardiovascular: S1/S2; Negative S3/S4
Pulmonary: Non Labored
Gastrointestinal: Soft and Non Tender
Extremities: Edema
Wound: Other (Right foot dressed. No significant strikethrough.)
Neurological: AO x 3
Psychological: Calm
Objective Data
Lab Data
Lab Results
09/06/23 09:15
09/06/23 12:11
ESR 111 mm/hour (0-20) H 09/04/23 13:03
Estimated Creat Clear 35 ml/min 09/06/23 09:15
Lactic Acid 0.9 mmol/L (0.7-2.0) 09/05/23 11:13
Total Bilirubin 0.6 mg/dl (0.2-1.3) 09/06/23 09:15
AST 101 U/L (17-59) H 09/06/23 09:15
ALT 171 U/L (0-50) H 09/06/23 09:15
Alkaline Phosphatase 158 U/L (38-126) H 09/06/23 09:15
C-Reactive Protein > 270.00 mg/L (0.0-10.00) H 09/04/23 13:03
Most recent labs reviewed.
Micro Results:
09/05/23 Unknown Anaerobic Culture - Preliminary
Foot - Right Culture pending. Anaerobic cultures are examined after 3
days incubation. Additional information to follow.
09/04/23 13:03 Blood Culture - Preliminary
Blood/Venous No Growth in 48 hours- Final report to follow
09/05/23 16:09 Wound Culture - Preliminary
Foot - Right Gram Stain - Preliminary
09/05/23 Unknown Anaerobic Culture - Preliminary
Foot - Right Culture pending. Anaerobic cultures are examined after 3
days incubation. Additional information to follow.
09/05/23 16:11 Wound Culture - Preliminary
Foot - Right Gram Stain - Preliminary
09/04/23 19:50 MRSA Screen - Final
Nose No Methicillin Resistant Staphylococcus aureus isolated.
09/05/23 19:39 Blood Culture - Pending
Blood/Venous
09/05/23 19:06 Blood Culture - Pending
Blood/Venous
Imaging:
09/05/2023 Plain film right foot: There has been interval resection of the right third digit at the level of the distal metatarsal bone. There is plantar soft tissue area which appears to be mainly in the region of the second and third metatarsal
bones. There is also a small amount of air off the posterior and superior margin of the calcaneus, anterior to the distal Achilles tendon, unchanged from earlier radiographs. Please see full dictation for additional detail.
09/05/2023 MRI right lower extremity: Numerous rounded foci of decreased signal intensity within the soft tissues of the distal right foot consistent with foci of soft tissue air. There is also concern for foci of air into the third metatarsal bone
and proximal phalanx of the right third toe. Please see full dictation for additional detail.
[2023-09-06] MEDS: SODIUM BICARBONATE 50 MEQ IV (15:28)
[2023-09-06 15:30] LABS: Glucose - Point of Care 533 mg/dl (70-99)
[2023-09-06] MEDS: NOVOLIN R 0.1 UNITS IV (15:54)
[2023-09-06 16:06] LABS: Venous Blood Gas O2 Sat % 98.8 %; Venous Blood Gas pCO2 38 mmHg (35-48); Venous Blood Gas pH 7.37 (7.32-7.43); Venous Blood Gas pO2 114 mmHg (30-50)
[2023-09-06 16:26] LABS: Blood Urea Nitrogen 68 mg/dl (9-20); Calcium 7.7 mg/dl (8.4-10.2); Carbon Dioxide 21 mmol/L (22-30); Chloride 99 mmol/L (98-107); Estimated Creatinine Clearance 33 ml/min; Glucose 457 mg/dl (70-99); Potassium 3.6 mmol/L (3.5-5.1); Sodium 131 mmol/L (135-145); eGFR 27.97
[2023-09-06 18:00] LABS: B-Hydroxybutyrate 0.31 mmol/L (0.02-0.27)
[2023-09-06 18:08] LABS: Glucose - Point of Care 452 mg/dl (70-99)
[2023-09-06] MEDS: NOVOLOG FLEXPEN-HIGH RESISTANCE 14 UNITS SC (19:10)
[2023-09-06 19:31] LABS: Glucose 402 mg/dl (70-99)
[2023-09-06 20:04] LABS: Glucose - Point of Care 459 mg/dl (70-99)
[2023-09-06 21:41] LABS: Glucose 345 mg/dl (70-99)
[2023-09-06] MEDS: NOVOLOG FLEXPEN 10 UNITS SC (22:05)
[2023-09-06] MEDS: LANTUS 0.2 UNITS SC (22:05)
[2023-09-06 22:06] VITALS: BP 118/53
[2023-09-07 00:10] LABS: Glucose - Point of Care 338 mg/dl (70-99)
[2023-09-07] MEDS: NOVOLOG FLEXPEN 7 UNITS SC (00:28)
[2023-09-07 02:56] LABS: Glucose - Point of Care 320 mg/dl (70-99)
[2023-09-07] MEDS: TYLENOL 500 MG PO ×3 (03:01→20:07)
[2023-09-07] MEDS: NOVOLOG FLEXPEN 4 UNITS SC (03:58)
--- NOTE | 2023-09-07 04:54 | PTCARENOTE ---
185 FZPNASP=273. Administered 7units novolog w/ sliding scale 14units=21units. recheck and required blood draw.
at 2108 glucose =345. Administered schedule Lantus 20unts and the additional novolog 10units ordered by [employer]GEN [employer]ANT OPERATOR.
0000 rechecked blood sugar ejbveghfs=042. Informed [employer]ANT OPERATOR Altafwajw instructed to give 7units novolog and recheck in 2 hrs.
0240 epklprufy=976. Informed O[employer]ANT OPERATOR Zechariahb- administered 4 units Novolog.
[2023-09-07] MEDS: ZOSYN 50 IV ×4 (05:01→23:02)
[2023-09-07] MEDS: SODIUM BICARBONATE 1150 MEQ IV (05:44)
[2023-09-07 07:00] VITALS: BP 117/56
--- NOTE | 2023-09-07 08:14 | PN.DE.MGMTRT ---
Insulin Management
- -
09/07/2023: Diabetes Management Consult Follow up
Patient admitted with worsening discoloration of Right foot toes due to 3rd toe gangrene and RLE tenosynovitis. MRI noted for gas in the tissues
PMH: ASCVD, HTN, HLD, CKD IIIb, Anemia of chronic disease with REGGIE complicated by anemia 2/2 CKD, Nicotine dependency and T2DM. Was taking Metformin 1000 mg BID and Farxiga 10mg daily prior to admission. A1C 10.1%, Cr 2.6, eGFR 25.41 today
Pt awake, A/Ox3, sitting up in bed, offers no complaints, able to discuss diabetes mgt. States he has had diabetes 10 to 15 years but never tested his glucose.
Discussed current A1C and glucose trend, pt made aware that insulin is the only safe option for mgt, given CKD with uptrending Cr.
Pt was hesitant at first stating that he was hoping he wouldn't need insulin because he lives on a fixed budget but was agreeable when he learned that insurance will likely cover most of the cost of his insulin especially if he didn't have any
issues with coverage of Farxiga.
Metformin and Farxiga stopped due to eGFR 27.97.
Lantus 20 units started 09/05, fasting glucose today 342, will increase hs lantus to 25 units Glucose range 09/05 386 to 506 will increase ac novolog to 12 units with high resistance corrective.
Instructed patient on prep and injection technique for pre filled pens with fair return demonstration. Provided home pen needles, nursing to have patient begin to self inject at all meals. Instructed on action of both lantus and novolog and
injection sites. Verbalized understanding.
Provided Contour next glucose monitor and instructed with good return demonstration.
Spoke with patients nurse, she will have patient self inject.
Will follow and reinforce.
Diabetes History
- -
Type of Diabetes: 2 requiring insulin
Pre-Admission Diabetes Regimen
09/06/23 09/06/23
09:15 15:47
Creatinine 2.3 H 2.4 H
Lab Results
Hemoglobin A1c 10.1 % (4.0-5.6) H 09/05/23 08:10
Insulin Pump Settings
IP Diabetes Regimen
09/06/23 09/06/23 09/06/23
09:15 11:46 12:11
Glucose 377 H 445 H
POC Glucose 506 H*
09/06/23 09/06/23 09/06/23
15:29 15:47 18:07
Glucose 457 H*
POC Glucose 533 H* 452 H*
09/06/23 09/06/23 09/06/23
18:59 20:01 21:09
Glucose 402 H 345 H
POC Glucose 459 H*
09/07/23 09/07/23
00:06 02:54
Glucose
POC Glucose 338 H 320 H
Patient Education
[2023-09-07 08:19] LABS: Glucose - Point of Care 342 mg/dl (70-99)
[2023-09-07 08:43] LABS: % Basophils 0.3 % (0-2); % Eosinophils 1.3 % (0-6); % Immature Granulocytes 1.1 % (0-0.5); % Lymphocytes 5.7 % (20.5-51.1); % Monocytes 5.5 % (1.7-9.3); % Neutrophils 86.1 % (42.2-75.2); Absolute Basophils 0.1 10^3/uL (0-0.2); Absolute Eosinophils 0.2 10^3/uL (0-0.7); Absolute Immature Granulocytes 0.2 10^3/uL (0-0.05); Absolute Neutrophils 15.6 10^3/uL (1.4-6.5); Hematocrit 25.7 % (39.0-52.0); Mean Corpuscular Volume 82.9 fL (80.0-94.0); Mean Platelet Volume 9.6 fL (7.4-10.4); Nucleated Red Blood Cells % 0 % (-); Platelet Count 348 10^3/uL (130-400); Red Cell Dist. Width 13.6 % (11.5-14.5); White Blood Cell Count 18.2 10^3/uL (4.8-10.8)
[2023-09-07] MEDS: VITAMIN C 1000 MG PO (08:58)
[2023-09-07] MEDS: NOVOLOG FLEXPEN-HIGH RESISTANCE 10 UNITS SC ×2 (08:58→17:24)
[2023-09-07] MEDS: TOPROL XL 50 MG PO ×2 (08:58→20:07)
[2023-09-07] MEDS: NOVOLOG FLEXPEN 12 UNITS SC (08:58)
[2023-09-07] MEDS: NORVASC 2.5 MG PO (08:59)
[2023-09-07] MEDS: NOVOLOG FLEXPEN SC ×2 (09:05→16:18)
[2023-09-07 09:07] LABS: Vancomycin Random 16.7 ug/ml
[2023-09-07 09:32] LABS: ALT (SGPT) 155 U/L (0-50); AST (SGOT) 86 U/L (17-59); Albumin 2.6 g/dl (3.5-5.0); Alkaline Phosphatase 155 U/L (38-126); Blood Urea Nitrogen 73 mg/dl (9-20); Calcium 7.7 mg/dl (8.4-10.2); Carbon Dioxide 22 mmol/L (22-30); Chloride 99 mmol/L (98-107); Estimated Creatinine Clearance 31 ml/min; Glucose 284 mg/dl (70-99); Potassium 3.2 mmol/L (3.5-5.1); Sodium 131 mmol/L (135-145); Total Bilirubin 0.5 mg/dl (0.2-1.3); Total Protein 5.5 g/dl (6.3-8.2); eGFR 25.41
--- NOTE | 2023-09-07 09:33 | PHA.VAN.FU ---
Vancomycin Assessment / Plan
- Assessment
Renal Function: SCR Increasing
WBC's are: Trending Down
In the past 24 hrs, patient has been: Afebrile
Concomitant Antimicrobials: piperacillin/tazobactam
Received IV contrast 09/04
- Assessment - Therapeutic Drug Monitoring
Random Level: 16.7 - drawn ~19H after previous dose of 1g
- Dosing Plan
Dosing by Level: Hold off on dosing today (anticipate patient will require prolonged interval and SCR is currently increasing)
- Monitoring Plan
Random Level: 09/07 06
Monitoring Comments: may consider calculating half-life with levels
- Follow Up
Pharmacy will continue to follow.
Vancomycin Follow UP
- -
Patient Age: 73
Patient Sex: Male
Vancomycin Day #: 4
Indication: [facility]
Requesting Provider: Jordan Pascual / Shamir
Pertinent Antimicrobial Allergies:
NKDA
Height / Weight:
Height 6 ft 3 in
Actual Weight 89.103 kg
Pertinent Past Medical History: DM, CKD
- Vital Signs / Lab Results
Temp Pulse Resp BP Pulse Ox
99.1 F 78 16 117/56 94
09/07/23 07:00 09/07/23 07:00 09/07/23 07:00 09/07/23 07:00 09/07/23 07:00
Lab Results - Hematology
09/04/23 09/05/23 09/06/23
13:03 08:10 09:15
WBC 24.8 H 21.7 H 25.2 H
09/07/23
08:22
WBC 18.2 H
Lab Results - Chemistry
09/04/23 09/05/23 09/06/23
13:03 08:10 09:15
BUN 57 H 53 H 66 H
Creatinine 2.2 H 2.1 H 2.3 H
Estimated Creat Clear 36 38 35
Albumin 3.1 L 2.7 L 2.6 L
09/06/23 09/07/23
15:47 08:22
BUN 68 H 73 H
Creatinine 2.4 H 2.6 H
Estimated Creat Clear 33 31
Albumin 2.6 L
09/05/23
11:13
Lactic Acid 0.9
Microbiology Results
09/05/23 19:39 Blood Culture - Preliminary
Blood/Venous No Growth in 24 hours- Final report to follow
09/05/23 19:06 Blood Culture - Preliminary
Blood/Venous No Growth in 24 hours- Final report to follow
09/05/23 Unknown Anaerobic Culture - Preliminary
Foot - Right Culture pending. Anaerobic cultures are examined after 3
days incubation. Additional information to follow.
09/04/23 13:03 Blood Culture - Preliminary
Blood/Venous No Growth in 48 hours- Final report to follow
09/05/23 16:09 Wound Culture - Preliminary
Foot - Right Gram Stain - Preliminary
09/05/23 Unknown Anaerobic Culture - Preliminary
Foot - Right Culture pending. Anaerobic cultures are examined after 3
days incubation. Additional information to follow.
09/05/23 16:11 Wound Culture - Preliminary
Foot - Right Gram Stain - Preliminary
09/04/23 19:50 MRSA Screen - Final
Nose No Methicillin Resistant Staphylococcus aureus isolated.
Therapeutic Drug Monitoring
Random Vancomycin 16.7 ug/ml 09/07/23 08:22
[2023-09-07] MEDS: NSS with KCL 20 MEQ 1000 IV ×2 (10:35→23:02)
--- NOTE | 2023-09-07 10:51 | CM ---
Patient seen bedside, reports no needs at this time. Patient remains on IV antibiotics. Watch for VN/wound care needs upon discharge. CM will continue to follow for all discharge planning needs.
Plan; home no needs, watch for VN needs.
--- NOTE | 2023-09-07 12:22 | W.PN.HOSP.TC ---
Addendum entered and electronically signed by Nik Alvarez MD 09/07/23 13:50:
RAYMOND 2/2 Cr baseline 1.5-1.7
Original Note:
Today's Communication/Plan
-
switch to NS with KCL
cont abx - follow Cr in AM
Assessment / Plan
Assessment / Plan
73yo M with PMHx of DM, HTN, HLD came with c/o worsening discoloration of R toes. HE was seen by his counter attendant and was sent to ED for possible intervention. Had I&D on 09/05/23 and wound Cx grew S.Aureus. Metabolic acedosis improved. Patient had to
be started on insulin 2/2 poorly controlled blood glucode and family life educator was involved
A/P:
#R multiple toes gangrene
#RLE tenosynovitis
MRI with gas in the tissues
Vanco/ZOsyn, ID consult
Bcx NTD
Wound Cx S.Aureus
Podiatry to follow
ESR/CRP to be followed
#HAGMA most likely 2/2 infection - resolved
#CKD stage 3b with creatinine elevation (not in RAYMOND range)
#Hypokalemia
Nephro consult
Cont IVF with KCL
#Transaminitis
#Elevated alk.phos
most likely 2/2 RLE infection
no abd pain
hepatitis C Ab neg
#Anemia of chronic disease with REGGIE complicated by anemia 2/2 CKD
treat infection
Iron PO upon d/c
#DM type 2 with circulatory complications
Hold Farxiga
Insulin SS, Accuchecks, DM diet
HgbA1c 10.1% - start Lantus
DM educator
#HLD
hold statin
#Nicotine dependency
Nicoderm PRN
#ASCVD
cont BB
DVT ppx hep
Full code
I have spent at least 36 min reviewing chart, test results, communication with consultants and direct patient care
Anticipated Discharge: > 48 hours
Subjective/Interval History
-
Date of Service: September 07, 2023
Objective Data
-
Labs:
Laboratory Results
09/07/23
08:22
WBC 18.2 H
Hgb 9.0 L
Hct 25.7 L
Plt Count 348
Sodium 131 L
Potassium 3.2 L
Chloride 99
Carbon Dioxide 22
BUN 73 H
Creatinine 2.6 H
Glucose 284 H
Calcium 7.7 L
Total Bilirubin 0.5
AST 86 H
ALT 155 H
Alkaline Phosphatase 155 H
Vital Signs:
Vital Signs
Temp Pulse Resp BP Pulse Ox
99.1 F 78 16 117/56 94
09/07/23 07:00 09/07/23 07:00 09/07/23 07:00 09/07/23 07:00 09/07/23 07:00
I&O
09/06/23 09/07/23 09/08/23
06:59 06:59 06:59
Intake Total 2250 / 2250 1885 / 1885
Output Total 800 / 800 600 / 600
Balance 1450 / 1450 1285 / 1285
Review of Systems
-
All other systems: Reviewed and negative
Physical Exam
-
General: No Apparent Distress
HEENT: Normocephalic
Respiratory: Clear to Auscultation
Cardiac: Regular Rhythm
GI: Soft, Nontender and Nondistended
Musculoskeletal: No Clubbing, No Cyanosis and No Edema
Skin: Warm
Neuro: Awake, Alert, Oriented and AO x 3
Psych: Calm
[2023-09-07 12:23] VITALS: BP 130/61; PULSE 86; O2SAT 94
[2023-09-07 12:28] LABS: Glucose - Point of Care 329 mg/dl (70-99)
[2023-09-07] MEDS: NOVOLOG FLEXPEN-HIGH RESISTANCE SC ×2 (12:39→16:18)
[2023-09-07] MEDS: ROXICODONE 5 MG PO ×2 (12:44→20:07)
[2023-09-07 13:13] LABS: Magnesium 1.9 mg/dl (1.6-2.3)
--- NOTE | 2023-09-07 13:16 | W.PN.POD ---
Today's Communication
Today's Communication
Continue local wound care and await final culture results
Suggest Vascular consult
Assessment / Plan
-
Right LE cellulitis with 3rd toe gangrene
-MRI report stated gas in plantar soft tissue at the level of the metatarsal heads with no distinct abscess
-Status post I and D right foot with amputation 3rd toe and metatarsal head
-Packed open. No further malodor and cellulitis receding. Color of adjacent toes stable, however within the surgical site, deep soft tissue is non viable
-Patient states pain now only in heel. May be irritation from ambulating on heel but if it continues, will order ankle MRI to assure infection isnt tracking proximally along the flexor tendon sheath
-Preliminary OR wound cultures show S. Aureus and Strep species. WBC reduced to 18 from 25.1.
-suggest vascular consult to assess distal perfusion and healing potential
DM uncontrolled with peripheral neuropathy
HgbA1c 10.1
RAYMOND on CKD
Subjective
Subjective
Patient states he is depressed as he now knows he need to take insulin for his diabetes. Resting in bed complaining of pain in his heel only
Objective
Temp Pulse Resp BP Pulse Ox
99.1 F 78 16 117/56 94
09/07/23 07:00 09/07/23 07:00 09/07/23 07:00 09/07/23 07:00 09/07/23 07:00
09/07/23 08:22
09/07/23 08:22
Vital Signs and Lab results were reviewed.
Physical Exam
Physical Exam
Incision site open with retention sutures in tact. non viable tissue noted at the adjacent metatarsal heads within the incision. Medial heel/ankle with 1 cm area of superficial blistering with serous fluid only. No purulence from the plantar
incision site noted.
--- NOTE | 2023-09-07 13:28 | PN.CDI ---
CDI
- -
CDI:
Physician Documentation Request
Admit Date: 09/04/23 15:20
Dear Doctor Kim,
Nephrology consultation states 'RAYMOND with CKD stage 3b baseline cr 1.4-1.7'
Podiatry note includes a diagnosis of RAYMOND on CKD.
09/06 hospitalist progress note states 'CKD stage 3b with creatinine elevation (not in RAYMOND range)'
Creatinine results :
Laboratory Tests
09/04/23 09/05/23 09/06/23
13:03 08:10 09:15
Creatinine 2.2 H 2.1 H 2.3 H
09/06/23 09/07/23
15:47 08:22
Creatinine 2.4 H 2.6 H
In an attempt to clarify potentially conflicting documentation, bases on the above information, please clarify the diagnosis of RAYMOND:
____ - Acute kidney injury is a valid diagnosis
____ - Acute kidney injury ruled out
____ - Other
Criteria for RAYMOND*
1 Increase in serum creatinine by > or = to 0.3 mg/dL (> or = to 26.5 micromol/L) within 48 hours, OR
2 Increase in serum creatinine to > or = to 1.5 times baseline, which is known or presumed to have occurred within 7 days, OR
3 Urine volume < 0.5 nL/kg/hour for six hours
Use of terms such as suspected, likely, concern for, or probable (associated with a specific diagnosis that is being evaluated, monitored, or treated as if it exists) are acceptable and can be coded in the inpatient setting, when documented at the
time of discharge.
Thank you,
Priya Ferguson RN, BSN
CDI Specialist
tiger text
Please use your independent medical judgment in providing your response.
*Source: Kidney Disease: Improving Global Outcomes (KDIGO) 2012
--- NOTE | 2023-09-07 13:45 | W.PN.NEPH.PH ---
Today's Communication / Plan
-
- Cr continues to rise
- monitor UOP
Assessment/Plan
-
IMP:
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
HAGMA
RAYMOND with CKD stage 3b baseline cr 1.4-1.7
Transaminitis
Anemia of chronic disease with REGGIE complicated by anemia 2/2 CKD
DM type 2 with circulatory complications
HLD
Nicotine dependency
ASCVD
Hypoalbuminemia
Plan:
A/w right foot gangrene and s/p i&d with 3rd toe amp
abx per ID and await for cx
RAYMOND-suspect from sepsis, UA with some ketones/glucose
KUS with no hydro, normal size kidneys
CT results noted from April with hydro after passing stone
acidosis significant improved
monitor I/Os
hold Farxiga, ACEI and metformin
BP are soft, meds with holding parameters
for kidney stone-check PTH
anemia-follow h/h, fe def, can start IV fe later once found no bacteremia
renal dose meds, avoid nephrotoxins
d/w pt
-
-
Date of Service: September 07, 2023
CC / HPI / ROS
-
Chief Complaint:
RAYMOND
History of Present Illness:
Cr elevated to 2.6 today, baseline likely 1.5-1.7
gangrenous toes
ACD
T2DM
Review of Systems:
urine output slightly lower today
Labs
-
Labs:
WBC 18.2 10^3/uL (4.8-10.8) H 09/07/23 08:22
RBC 3.10 10^6/uL (4.70-6.10) L 09/07/23 08:22
Hgb 9.0 g/dL (13.0-18.0) L 09/07/23 08:22
Hct 25.7 % (39.0-52.0) L 09/07/23 08:22
Plt Count 348 10^3/uL (130-400) 09/07/23 08:22
Sodium 131 mmol/L (135-145) L 09/07/23 08:22
Potassium 3.2 mmol/L (3.5-5.1) L 09/07/23 08:22
Chloride 99 mmol/L (98-107) 09/07/23 08:22
Carbon Dioxide 22 mmol/L (22-30) 09/07/23 08:22
BUN 73 mg/dl (9-20) H 09/07/23 08:22
Creatinine 2.6 mg/dL (0.7-1.3) H 09/07/23 08:22
eGFR 25.41 09/07/23 08:22
Glucose 284 mg/dl (70-99) H 09/07/23 08:22
Calcium 7.7 mg/dl (8.4-10.2) L 09/07/23 08:22
Albumin 2.6 g/dl (3.5-5.0) L 09/07/23 08:22
Physical Exam
-
Vital Signs:
Vital Signs
Temp Pulse Resp BP Pulse Ox
99.1 F 78 16 117/56 94
09/07/23 07:00 09/07/23 07:00 09/07/23 07:00 09/07/23 07:00 09/07/23 07:00
Cardiovascular:: Regular rate and rhythm
Respiratory:: Bilateral: Coarse
Lung Excursion:: Normal
Abdomen:: Nontender and Soft
Bowel Sounds:: Normal
Extremity Edema:: None: Bilateral:
Caraballo Catheter: No
[2023-09-07 15:00] VITALS: BP 124/60
--- NOTE | 2023-09-07 15:40 | W.PN.ID1 ---
Date of Service
Date of Service: September 07, 2023
Today's Communication
Continue antibiotics.
Assessment / Plan
Right foot gangrene
-S/p I&D and resection of third toe 09/05/2023
Leukocytosis
RAYMOND on CKD
Transaminitis
Elevated ESR and CRP
CAD
HTN
Dyslipidemia
DM type II (uncontrolled; A1c = 10.1)
Nephrolithiasis
Recommendations:
Continue Zosyn and Vanco for today.
Await further cultures to guide further antimicrobial selection and potential de-escalation.
Monitor white count and temperature curve. White count improved today.
Podiatry note reviewed; deep soft tissue noted to be nonviable in appearance.
Lower extremity elevation.
Tight glucose control.
Will order NELI.
Consider Vascular eval.
Given uncontrolled diabetes along with neuropathy, patient is at high risk for limb loss.
����������������������������������������������������������
Chief Complaint
-: Other (Right foot gangrene)
Subjective / Review of Systems
Review of Systems: No Fever and No Chills
Vital Signs / Physical Exam
Vital Signs
Vital Signs
Temp Pulse Resp BP Pulse Ox
99.1 F 78 16 117/56 94
09/07/23 07:00 09/07/23 07:00 09/07/23 07:00 09/07/23 07:00 09/07/23 07:00
Physical Exam
Constitutional: No Acute Distress, Comfortable and Non-toxic
Cardiovascular: S1/S2; Negative S3/S4
Pulmonary: Non Labored
Gastrointestinal: Soft and Non Tender
Extremities: Edema
Wound: Other (Right foot dressed. No significant strikethrough.)
Neurological: AO x 3
Psychological: Calm
Objective Data
Lab Data
Lab Results
09/07/23 08:22
09/07/23 08:22
ESR 111 mm/hour (0-20) H 09/04/23 13:03
Estimated Creat Clear 31 ml/min 09/07/23 08:22
Lactic Acid 0.9 mmol/L (0.7-2.0) 09/05/23 11:13
Total Bilirubin 0.5 mg/dl (0.2-1.3) 09/07/23 08:22
AST 86 U/L (17-59) H 09/07/23 08:22
ALT 155 U/L (0-50) H 09/07/23 08:22
Alkaline Phosphatase 155 U/L (38-126) H 09/07/23 08:22
C-Reactive Protein > 270.00 mg/L (0.0-10.00) H 09/04/23 13:03
Most recent labs reviewed.
Micro Results:
09/04/23 13:03 Blood Culture - Preliminary
Blood/Venous No Growth in 72 hours- Final report to follow
09/05/23 16:09 Wound Culture - Preliminary
Foot - Right Staphylococcus aureus
Gram Stain - Preliminary
09/05/23 16:11 Wound Culture - Preliminary
Foot - Right Staphylococcus aureus
Streptococcus species
Gram Stain - Preliminary
09/05/23 19:39 Blood Culture - Preliminary
Blood/Venous No Growth in 24 hours- Final report to follow
09/05/23 19:06 Blood Culture - Preliminary
Blood/Venous No Growth in 24 hours- Final report to follow
09/05/23 Unknown Anaerobic Culture - Preliminary
Foot - Right Culture pending. Anaerobic cultures are examined after 3
days incubation. Additional information to follow.
09/05/23 Unknown Anaerobic Culture - Preliminary
Foot - Right Culture pending. Anaerobic cultures are examined after 3
days incubation. Additional information to follow.
09/04/23 19:50 MRSA Screen - Final
Nose No Methicillin Resistant Staphylococcus aureus isolated.
Imaging:
09/05/2023 Plain film right foot: There has been interval resection of the right third digit at the level of the distal metatarsal bone. There is plantar soft tissue area which appears to be mainly in the region of the second and third metatarsal
bones. There is also a small amount of air off the posterior and superior margin of the calcaneus, anterior to the distal Achilles tendon, unchanged from earlier radiographs. Please see full dictation for additional detail.
09/05/2023 MRI right lower extremity: Numerous rounded foci of decreased signal intensity within the soft tissues of the distal right foot consistent with foci of soft tissue air. There is also concern for foci of air into the third metatarsal bone
and proximal phalanx of the right third toe. Please see full dictation for additional detail.
[2023-09-07 16:34] LABS: Glucose - Point of Care 301 mg/dl (70-99)
[2023-09-07] MEDS: NOVOLOG FLEXPEN 20 UNITS SC (17:24)
[2023-09-07 20:06] VITALS: BP 146/66
[2023-09-07 22:30] LABS: Glucose - Point of Care 322 mg/dl (70-99)
[2023-09-07] MEDS: LANTUS 0.25 UNITS SC (22:38)
[2023-09-07 23:23] VITALS: BP 119/56
[2023-09-08] MEDS: ROXICODONE 5 MG PO ×2 (03:46→17:56)
[2023-09-08] MEDS: TYLENOL 500 MG PO ×3 (03:46→21:43)
[2023-09-08] MEDS: ZOSYN 50 IV ×2 (05:32→11:29)
[2023-09-08 07:50] LABS: Glucose - Point of Care 243 mg/dl (70-99)
[2023-09-08 07:58] LABS: % Basophils 0.3 % (0-2); % Eosinophils 1.8 % (0-6); % Immature Granulocytes 1.1 % (0-0.5); % Lymphocytes 6.3 % (20.5-51.1); % Monocytes 5.7 % (1.7-9.3); % Neutrophils 84.8 % (42.2-75.2); Absolute Basophils 0.1 10^3/uL (0-0.2); Absolute Eosinophils 0.3 10^3/uL (0-0.7); Absolute Immature Granulocytes 0.2 10^3/uL (0-0.05); Absolute Lymphocytes 1.1 10^3/uL (1.2-3.4); Absolute Neutrophils 14.9 10^3/uL (1.4-6.5); Hematocrit 23.7 % (39.0-52.0); Hemoglobin 8.2 g/dL (13.0-18.0); Mean Corp Hgb Conc. 34.6 g/dL (33.0-37.0); Mean Corpuscular Hgb 29.3 pg (27.0-31.0); Mean Corpuscular Volume 84.6 fL (80.0-94.0); Mean Platelet Volume 9.9 fL (7.4-10.4); Nucleated Red Blood Cells % 0 % (-); Platelet Count 321 10^3/uL (130-400); Red Cell Dist. Width 13.5 % (11.5-14.5); White Blood Cell Count 17.6 10^3/uL (4.8-10.8)
--- NOTE | 2023-09-08 08:00 | PN.DE.MGMTRT ---
Insulin Management
- -
09/08/2023: Diabetes Management Consult Follow up
Patient admitted with worsening discoloration of Right foot toes due to 3rd toe gangrene and RLE tenosynovitis. MRI noted for gas in the tissues
PMH: ASCVD, HTN, HLD, CKD IIIb, Anemia of chronic disease with REGGIE complicated by anemia 2/2 CKD, Nicotine dependency and T2DM. Was taking Metformin 1000 mg BID and Farxiga 10mg daily prior to admission. A1C 10.1%, Cr 2.6, eGFR 25.41 today
Pt awake, A/Ox3, sitting up in bed, offers no complaints, able to discuss diabetes mgt. States he has had diabetes 10 to 15 years but never tested his glucose.
Discussed current A1C and glucose trend, pt made aware that insulin is the only safe option for mgt, with uptrending Cr.
Pt was hesitant at first stating that he was hoping he wouldn't need insulin because he lives on a fixed budget but was agreeable when he learned that insurance will likely cover most of the cost of his insulin especially if he didn't have any
issues with coverage of Farxiga.
Metformin and Farxiga stopped due to eGFR 27.97.
09/06 Instructed patient on prep and injection technique for pre filled pens with fair return demonstration. Provided home pen needles, nursing to have patient begin to self inject at all meals. Instructed on action of both lantus and novolog and
injection sites. Verbalized understanding.
Provided Contour next glucose monitor and instructed with good return demonstration.
09/07 CR 2.4, eGFR 27.97
Lantus 25 units 09/06 @ HS, fasting glucose today 243, will increase hs lantus to 30 units Glucose range 09/06 301 to 322 will increase ac novolog to 25 units with moderate resistance corrective.
Will reinforce meter and insulin injection steps. Provided printed instructions for each step to prepare and self inject using prefilled pen for home reference.
Will follow
Spoke with patients nurse, nursing to reinforce insulin prep and injections, she will have patient self inject.
Diabetes History
- -
Type of Diabetes: 2 requiring insulin
Pre-Admission Diabetes Regimen
09/07/23
08:22
Creatinine 2.6 H
Lab Results
Hemoglobin A1c 10.1 % (4.0-5.6) H 09/05/23 08:10
Insulin Pump Settings
IP Diabetes Regimen
09/07/23 09/07/23 09/07/23
08:17 08:22 12:27
Glucose 284 H
POC Glucose 342 H 329 H
09/07/23 09/07/23 09/08/23
16:33 22:04 07:48
Glucose
POC Glucose 301 H 322 H 243 H
Meal type: Lunch
Meal type: Breakfast
Amount consumed: 60%
Amount consumed: 50%
Patient Education
[2023-09-08 08:08] VITALS: BP 131/73
[2023-09-08 08:11] LABS: Vancomycin Random 12.5 ug/ml
[2023-09-08 08:12] LABS: ALT (SGPT) 123 U/L (0-50); AST (SGOT) 61 U/L (17-59); Albumin 2.3 g/dl (3.5-5.0); Alkaline Phosphatase 146 U/L (38-126); Blood Urea Nitrogen 59 mg/dl (9-20); Calcium 7.5 mg/dl (8.4-10.2); Carbon Dioxide 22 mmol/L (22-30); Chloride 103 mmol/L (98-107); Estimated Creatinine Clearance 33 ml/min; Glucose 206 mg/dl (70-99); Potassium 3.5 mmol/L (3.5-5.1); Sodium 134 mmol/L (135-145); Total Bilirubin 0.4 mg/dl (0.2-1.3); Total Protein 5.2 g/dl (6.3-8.2); eGFR 27.97
[2023-09-08] MEDS: NORVASC 2.5 MG PO (09:00)
[2023-09-08] MEDS: NOVOLOG FLEXPEN 25 UNITS SC ×3 (09:00→17:22)
[2023-09-08] MEDS: TOPROL XL 50 MG PO ×2 (09:01→20:08)
[2023-09-08] MEDS: NOVOLOG FLEXPEN-MODERATE RESISTANCE 3 UNITS SC ×2 (09:01→13:14)
[2023-09-08] MEDS: VITAMIN C 1000 MG PO (09:01)
--- NOTE | 2023-09-08 09:15 | PN.CDI ---
Addendum entered and electronically signed by Nik Alvarez MD 09/08/23 11:17:
no sepsis
Original Note:
CDI
- -
CDI:
Physician Documentation Request
Admit Date: 09/04/23 15:20
Dear Doctor Kim,
The diagnosis of Sepsis was included in nephrology progress notes and consultation. 'RAYMOND-suspect from sepsis'
09/03 WBC 24.8
09/03 T max 101.5
Heart rate on presentation 100
09/03 RR 18-20
Please indicate in your progress notes if you are in agreement that the above diagnosis is valid for this patient:
____ - Sepsis is a valid diagnosis
____ - Sepsis is not a valid diagnosis for this patient
____ - Other
Use of terms such as suspected, likely, concern for, or probable are acceptable for a diagnosis that is being evaluated, monitored or treated as if it exists and can be coded in the inpatient setting, when documented at the time of discharge.
Thank you,
Priya Ferguson RN, BSN
CDI Specialist
tiger text
Please use your independent medical judgment in providing your response.
--- NOTE | 2023-09-08 09:20 | PN.CDI ---
Addendum entered and electronically signed by Nik Alvarez MD 09/08/23 11:16:
not significant
Original Note:
CDI
- -
CDI:
Physician Documentation Request
Admit Date: 09/04/23 15:20
Dear Doctor Kim,
Patient admitted R multiple toes gangrene.
Sodium resulted as follows:
Laboratory Tests
09/05/23 09/06/23 09/06/23
08:10 09:15 15:47
Sodium 137 133 L 131 L
09/07/23 09/08/23
08:22 07:07
Sodium 131 L 134 L
Could you please provide a diagnosis that supports the above lab abnormalities and additional evaluation/monitoring :
Hyponatremia
Abnormal lab value clinically insignificant
Other
Use of terms such as suspected, likely, concern for, or probable (associated with a specific diagnosis that is being evaluated, monitored, or treated as if it exists) are acceptable and can be coded in the inpatient setting, when documented at the
time of discharge.
Thank you,
Priya Ferguson RN, BSN
CDI Specialist
tiger text
Please use your independent medical judgment in providing your response.
[2023-09-08] MEDS: NOVOLOG FLEXPEN SC (09:27)
[2023-09-08] MEDS: NOVOLOG FLEXPEN-HIGH RESISTANCE SC (09:27)
--- NOTE | 2023-09-08 09:32 | PHA.VAN.FU ---
Vancomycin Assessment / Plan
- Assessment
Renal Function: SCR Decreasing (2.6>2.4)
WBC's are: Trending Down (18.2>17.6)
In the past 24 hrs, patient has been: Afebrile
Concomitant Antimicrobials: piperacillin-tazobactam renally adjusted dose no pseudomonas identified
- Assessment - Therapeutic Drug Monitoring
Random Level: 12.5 drawn ~42 hrs after last dose vancomycin 1gm given
- Dosing Plan
Dosing by Level: Re-dose today (Vancomcycin 750mg IV x 1 dose)
- Monitoring Plan
Random Level: Ordered for 09/09/23 at 06:00
- Follow Up
Pharmacy will continue to follow.
Vancomycin Follow UP
- -
Patient Age: 73
Patient Sex: Male
Vancomycin Day #: 5
Indication: [facility]
Requesting Provider: Jordan Pascual / Shamir
Pertinent Antimicrobial Allergies:
NKDA
Height / Weight:
Height 6 ft 3 in
Actual Weight 89.103 kg
IBW in k.5
Adjusted BW in k.3
Pertinent Past Medical History: DM, CKD
- Vital Signs / Lab Results
Temp Pulse Resp BP Pulse Ox
98.6 F 79 18 131/73 95
09/08/23 08:08 09/08/23 08:08 09/08/23 08:08 09/08/23 08:08 09/08/23 08:08
Lab Results - Hematology
09/06/23 09/07/23 09/08/23
09:15 08:22 07:07
WBC 25.2 H 18.2 H 17.6 H
Lab Results - Chemistry
09/06/23 09/06/23 09/07/23
09:15 15:47 08:22
BUN 66 H 68 H 73 H
Creatinine 2.3 H 2.4 H 2.6 H
Estimated Creat Clear 35 33 31
Albumin 2.6 L 2.6 L
09/08/23
07:07
BUN 59 H
Creatinine 2.4 H
Estimated Creat Clear 33
Albumin 2.3 L
09/05/23
11:13
Lactic Acid 0.9
Microbiology Results
09/05/23 16:09 Wound Culture - Preliminary
Foot - Right S aureus-Methicillin Sensitive
Gram Stain - Preliminary
09/05/23 16:11 Wound Culture - Preliminary
Foot - Right S aureus-Methicillin Sensitive
Streptococcus species
Gram Stain - Preliminary
09/05/23 19:39 Blood Culture - Preliminary
Blood/Venous No Growth in 48 hours- Final report to follow
09/05/23 19:06 Blood Culture - Preliminary
Blood/Venous No Growth in 48 hours- Final report to follow
09/04/23 13:03 Blood Culture - Preliminary
Blood/Venous No Growth in 72 hours- Final report to follow
09/05/23 Unknown Anaerobic Culture - Preliminary
Foot - Right Culture pending. Anaerobic cultures are examined after 3
days incubation. Additional information to follow.
09/05/23 Unknown Anaerobic Culture - Preliminary
Foot - Right Culture pending. Anaerobic cultures are examined after 3
days incubation. Additional information to follow.
09/04/23 19:50 MRSA Screen - Final
Nose No Methicillin Resistant Staphylococcus aureus isolated.
Therapeutic Drug Monitoring
Random Vancomycin 12.5 ug/ml 09/08/23 07:07
--- NOTE | 2023-09-08 09:41 | W.PN.HOSP.TC ---
Today's Communication/Plan
-
cont abx - expect narrow coverage, await further ID input
Angio on Mon
Assessment / Plan
Assessment / Plan
73yo M with PMHx of DM, HTN, HLD came with c/o worsening discoloration of R toes. 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 Had I&D on 09/05/23 and wound Cx grew S.Aureus. Metabolic acedosis improved. Patient had to
be started on insulin 2/2 poorly controlled blood glucose and repair order clerk was involved. VascSx panning on angio on 09/11/23
A/P:
#R multiple toes gangrene
#RLE tenosynovitis
#PAD
MRI with gas in the tissues
Vanco/ZOsyn, ID consult
Bcx NTD
Wound Cx: MSSA and strep
Podiatry to follow: non viable tissue on I&D
VascSx planning angio
ESR/CRP to be followed
#HAGMA most likely 2/2 infection - resolved
#CKD stage 3b with creatinine elevation (not in RAYMOND range)
#Hypokalemia
Nephro consult
Cont IVF with KCL
#Transaminitis
#Elevated alk.phos
most likely 2/2 RLE infection
no abd pain
hepatitis C Ab neg
#Anemia of chronic disease with REGGIE complicated by anemia 2/2 CKD
treat infection
Iron PO upon d/c
#DM type 2 with circulatory complications
Hold Farxiga
Insulin SS, Accuchecks, DM diet
HgbA1c 10.1% - start Lantus
DM educator
#HLD
hold statin
#Nicotine dependency
Nicoderm PRN
#ASCVD
cont BB
DVT ppx hep
Full code
I have spent at least 36 min reviewing chart, test results, communication with consultants and direct patient care
Anticipated Discharge: > 48 hours
Subjective/Interval History
-
Date of Service: September 08, 2023
Objective Data
-
Labs:
Laboratory Results
09/08/23
07:07
WBC 17.6 H
Hgb 8.2 L
Hct 23.7 L
Plt Count 321
Sodium 134 L
Potassium 3.5
Chloride 103
Carbon Dioxide 22
BUN 59 H
Creatinine 2.4 H
Glucose 206 H
Calcium 7.5 L
Total Bilirubin 0.4
AST 61 H
ALT 123 H
Alkaline Phosphatase 146 H
Vital Signs:
Vital Signs
Temp Pulse Resp BP Pulse Ox
98.6 F 79 18 131/73 95
09/08/23 08:08 09/08/23 08:08 09/08/23 08:08 09/08/23 08:08 09/08/23 08:08
I&O
09/07/23 09/08/23 09/09/23
06:59 06:59 06:59
Intake Total 1885 / 1885 3200 / 3200
Output Total 600 / 600 900 / 900
Balance 1285 / 1285 2300 / 2300
Review of Systems
-
History Source: Patient
All other systems: Reviewed and negative
Musculoskeletal: Reports Other (RLE pain)
Physical Exam
-
General: No Apparent Distress
HEENT: Normocephalic, Atraumatic and Moist Mucous Membranes
Respiratory: Clear to Auscultation; Negative Wheezes, Rales or Rhonchi
Cardiac: Regular Rhythm and S1/S2; Negative Murmur
GI: Soft, Nontender and Nondistended
Genito-urinary: No Costovertebral Tender
Musculoskeletal: No Clubbing and No Cyanosis
Skin: Warm
Neuro: Awake, Alert, Oriented and AO x 3
Psych: Calm
[2023-09-08] MEDS: VANCOCIN 150 IV (09:44)
--- NOTE | 2023-09-08 11:43 | CON.VAS ---
Addendum entered and electronically signed by Speedy Caraballo III, MD 09/08/23 13:16:
This patient was seen and examined with DARRIAN Price. I agree with the history and physical exam as well as the assessment and plan. I have the following additions:
73-year-old male
Poor historian, poor insight into his medical problems
Right foot/toe wound with associated infection status postdebridement by podiatry
On physical exam he has an easily palpable right femoral pulse. Nonpalpable pedal pulses on the right but Doppler signals are present
I personally reviewed his lower extremity arterial studies performed today. His NELI on the right is abnormal at 0.79. Toe pressure 0. Arterial duplex examination reveals multiphasic waveforms from the common femoral artery through the distal
superficial femoral artery. There is a velocity elevation in the proximal superficial femoral artery but the ratio remains less than 2 suggesting a nonsignificant stenosis at this location. Calcified plaque is identified from the common femoral
artery through the popliteal artery in the right lower extremity. There is a transition to monophasic waveforms in the popliteal artery suggesting the presence of arterial disease at this location. Presence of tibial artery and small vessel disease
is suspected.
I am recommending a right lower extremity arteriogram with possible endovascular intervention. The technical aspects of this procedure were discussed with him in detail. The benefits and rationale for this approach were discussed with him in
detail. Operative risks were discussed with him in detail including but not limited to arterial access site injury, bleeding, infection, contrast nephropathy, distal embolization and the inability to successfully complete endovascular intervention.
His creatinine is elevated on this admission. Please consult nephrology. If acceptable we will plan for arteriogram on 09/11/2023.
Call with questions or concerns
Signed:
Speedy Caraballo III, MD
[facility]
[phone] (cell)
Original Note:
Consultation
Consultation Request
Performing Provider: Rashmi
Reason for Consultation: Gangrene, nonhealing wounds
Medical History
-
Chief Complaint: Nonhealing toe wounds right > left
History of Present Illness:
73-year-old male admitted through the ED on 09/04/23 for painful, foul-smelling right third toe wound. Wound has been present for 2 weeks prior to admission. Patient believes it was due to walking 'a lot' while on vacation in [place]. Patient was
seen by Dr. Carrington and sent to the ER for gangrene of the third toe.
Since admission patient had I&D by podiatry of the right foot, now packed and open. Infectious disease are on board and tracking over cultures/antibiotic management. Nephrology consulted for rising creatinine.
MRI report stated gas in plantar soft tissue at the level of the metatarsal heads with no distinct abscess.
Arterial ultrasounds pending.
Vascular consult for nonhealing wounds/PAD eval. Patient seen at bedside this a.m. with Dr. Caraballo. Patient is a poor historian, unsure of most of his medical history.
Right foot wrapped at surgical site. Right PT Doppler present. Left PT and DP Doppler signals present. Bilateral feet warm.
Past Medical History
Past Medical History: Other (CAD/Cabg x 3 vessel, HTN, HL, DM, Renal calculi, CKD 3B)
Past Surgical History: Appendectomy and Cardiac
Social History
Tobacco: Smoker
Alcohol: Occasional
Employment: Employed
Family History
Family History: Reviewed & Not Pertinent
Allergies / Home Medications
Allergy/AdvReac Type Severity Reaction Status Date / Time
No Known Allergies Allergy Verified 09/04/23 11:50
�Medication �Instructions �Recorded �Confirmed �Type
amlodipine 5 mg tablet 5 mg PO DAILY ##0 03/25/14 09/04/23 Rx
ascorbic acid (vitamin C) 1,000 mg 1,000 mg PO DAILY 05/02/23 09/04/23 History
tablet (Vitamin C)
dapagliflozin propanediol 10 mg 10 mg PO DAILY 05/02/23 09/04/23 History
tablet (Farxiga)
metoprolol succinate 50 mg 50 mg PO BID 05/02/23 09/04/23 History
tablet,extended release 24 hr
lisinopril 20 mg tablet 10 mg (1/2 x 20 mg) PO DAILY #0 05/03/23 09/04/23 Rx
tabs
atorvastatin 40 mg tablet 40 mg PO HS 09/04/23 09/04/23 History
metformin 500 mg tablet 1,000 mg PO BIDWMEAL 09/04/23 09/04/23 History
ywhjxcckkfvt-cjf-dvyxb acid-vit 1 tab PO DAILY 09/04/23 09/04/23 History
K-lycop 400 mcg-20 mcg-370 mcg
tablet (Men's 50 Plus Multivitamin)
omega 9-mwe-owj-fish oil 1,000 mg 1 cap PO DAILY 09/04/23 09/04/23 History
(120 mg-180 mg) capsule (Fish Oil)
Review of Systems
-
History Source: Patient
All other systems: Negative unless noted
Constitutional: Reports No Symptoms
EENT: Reports No Symptoms
Respiratory: Reports No Symptoms
Cardiac: Reports No Symptoms
Vascular: Reports Numbness
Abdomen/GI: Reports No Symptoms
: Reports No Symptoms
Skin: Reports Other (Nonhealing wounds bilateral feet right> left)
Neurological: Reports No Symptoms
Endocrine: Reports No Symptoms
Physical Exam
Vital Signs
Temp Pulse Resp BP Pulse Ox
98.6 F 79 18 131/73 96
09/08/23 08:08 09/08/23 08:08 09/08/23 08:08 09/08/23 08:08 09/08/23 08:35
Lab Results
09/08/23 07:07
09/08/23 07:07
Physical Exam
General: No Apparent Distress
HEENT: Normocephalic and Atraumatic
Respiratory: Non Labored Respirations
Cardiac: Negative JVD
GI: Soft and Non Tender
Musculoskeletal: No Clubbing, No Cyanosis and Edema (Scant bilateral lower extremity)
Skin: Warm and Other (See wound care notes)
Neuro: Awake, Alert and Oriented
Psych: Calm
Pulses: Bilateral Femoral: +2, Left Dorsalis Pedis: Doppler, Left Posterior Tibial: Doppler and Right Posterior Tibial: Doppler
Assessment / Plan
-
73-year-old male with nonhealing right foot wounds, status post debridement by podiatry
Plan:
-Ultrasound pending, will follow-up when completed
-Likely will require arteriogram when creatinine normalizes (Monday vs Monday?)
-Continue local wound care
[2023-09-08 11:55] LABS: Glucose - Point of Care 201 mg/dl (70-99)
--- NOTE | 2023-09-08 14:40 | W.PN.NEPH.PH ---
Today's Communication / Plan
-
follow labs
Assessment/Plan
-
IMP:
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
HAGMA
RAYMOND with CKD stage 3b baseline cr 1.4-1.7
Transaminitis
Anemia of chronic disease with REGGIE complicated by anemia 2/2 CKD
DM type 2 with circulatory complications
HLD
Nicotine dependency
ASCVD
Hypoalbuminemia
Plan:
A/w right foot gangrene and s/p i&d with 3rd toe amp on 09/04
RAYMOND-cr improving to 2.4, non oliguric
suspect from sepsis, UA with some ketones/glucose
KUS with no hydro, normal size kidneys
CT results noted from April with hydro after passing stone
acidosis improved
hold Farxiga, ACEI and metformin
BP are stable, meds with holding parameters
for kidney stone-check PTH
anemia-follow h/h, fe def, can start IV fe as has no bacteremia
renal dose meds, avoid nephrotoxins
noted potential A gram next week, will wait till cr to reach baseline
d/w pt and family
-
-
Date of Service: September 08, 2023
CC / HPI / ROS
-
Chief Complaint:
RAYMOND
History of Present Illness:
Cr slightly better at 2.4 today, baseline likely 1.5-1.7
hyperglycemia improving
BP stable
no fever
Review of Systems:
no cp or sob
feels well
some pain in the foot
Labs
-
Labs:
WBC 17.6 10^3/uL (4.8-10.8) H 09/08/23 07:07
RBC 2.80 10^6/uL (4.70-6.10) L 09/08/23 07:07
Hgb 8.2 g/dL (13.0-18.0) L 09/08/23 07:07
Hct 23.7 % (39.0-52.0) L 09/08/23 07:07
Plt Count 321 10^3/uL (130-400) 09/08/23 07:07
Sodium 134 mmol/L (135-145) L 09/08/23 07:07
Potassium 3.5 mmol/L (3.5-5.1) 09/08/23 07:07
Chloride 103 mmol/L (98-107) 09/08/23 07:07
Carbon Dioxide 22 mmol/L (22-30) 09/08/23 07:07
BUN 59 mg/dl (9-20) H 09/08/23 07:07
Creatinine 2.4 mg/dL (0.7-1.3) H 09/08/23 07:07
eGFR 27.97 09/08/23 07:07
Glucose 206 mg/dl (70-99) H 09/08/23 07:07
Calcium 7.5 mg/dl (8.4-10.2) L 09/08/23 07:07
Albumin 2.3 g/dl (3.5-5.0) L 09/08/23 07:07
Physical Exam
-
Vital Signs:
Vital Signs
Temp Pulse Resp BP Pulse Ox
98.6 F 79 18 131/73 96
09/08/23 08:08 09/08/23 08:08 09/08/23 08:08 09/08/23 08:08 09/08/23 08:35
Cardiovascular:: Regular rate and rhythm
Respiratory:: Bilateral: CTA
Lung Excursion:: Normal
Abdomen:: Nontender and Soft
Extremity Edema:: None: Bilateral:
Caraballo Catheter: No
Other Findings::
right foot in dressing
--- NOTE | 2023-09-08 15:00 | PTCARENOTE ---
Pt was able to draw up insulin for before lunch dosing and administer the dose to himself, monitored and prompted by this nurse.
--- NOTE | 2023-09-08 15:18 | W.PN.ID1 ---
Date of Service
Date of Service: September 08, 2023
Today's Communication
Narrow abx's to cefazolin.
Assessment / Plan
Right foot gangrene
-S/p I&D and resection of third toe 09/05/2023
Leukocytosis trending down
RAYMOND on CKD
Transaminitis
Elevated ESR and CRP
CAD
HTN
Dyslipidemia
DM type II (uncontrolled; A1c = 10.1)
Nephrolithiasis
Recommendations:
OR cx: MSSA, Strep species
Narrow VAncomycin/Zosyn to cefazolin IV
Monitor white count and temperature curve. White count improved today.
Podiatry note reviewed; deep soft tissue noted to be nonviable in appearance.
Lower extremity elevation.
Tight glucose control.
NELI pending
Vascular planning for arteriogram Monday.
Given uncontrolled diabetes along with neuropathy, patient is at high risk for limb loss.
����������������������������������������������������������
Chief Complaint
-: Other (Right foot gangrene)
Subjective / Review of Systems
No foot pain.
Vital Signs / Physical Exam
Vital Signs
Vital Signs
Temp Pulse Resp BP Pulse Ox
98.6 F 79 18 131/73 96
09/08/23 08:08 09/08/23 08:08 09/08/23 08:08 09/08/23 08:08 09/08/23 08:35
Physical Exam
Constitutional: No Acute Distress and Comfortable
Gastrointestinal: Soft, Non Tender and Non Distended
Wound: Other (right foot dressing dry)
Objective Data
Lab Data
Lab Results
09/08/23 07:07
09/08/23 07:07
ESR 111 mm/hour (0-20) H 09/04/23 13:03
Estimated Creat Clear 33 ml/min 09/08/23 07:07
Lactic Acid 0.9 mmol/L (0.7-2.0) 09/05/23 11:13
Total Bilirubin 0.4 mg/dl (0.2-1.3) 09/08/23 07:07
AST 61 U/L (17-59) H 09/08/23 07:07
ALT 123 U/L (0-50) H 09/08/23 07:07
Alkaline Phosphatase 146 U/L (38-126) H 09/08/23 07:07
C-Reactive Protein > 270.00 mg/L (0.0-10.00) H 09/04/23 13:03
Most recent labs reviewed.
Micro Results:
09/05/23 Unknown Anaerobic Culture - Preliminary
Foot - Right Culture pending. Anaerobic cultures are examined after 3
days incubation. Additional information to follow.
09/05/23 Unknown Anaerobic Culture - Preliminary
Foot - Right Culture pending. Anaerobic cultures are examined after 3
days incubation. Additional information to follow.
09/04/23 13:03 Blood Culture - Preliminary
Blood/Venous No Growth in 4 days- Final report to follow
09/05/23 16:09 Wound Culture - Preliminary
Foot - Right S aureus-Methicillin Sensitive
Gram Stain - Preliminary
09/05/23 16:11 Wound Culture - Preliminary
Foot - Right S aureus-Methicillin Sensitive
Streptococcus species
Gram Stain - Preliminary
09/05/23 19:39 Blood Culture - Preliminary
Blood/Venous No Growth in 48 hours- Final report to follow
09/05/23 19:06 Blood Culture - Preliminary
Blood/Venous No Growth in 48 hours- Final report to follow
09/04/23 19:50 MRSA Screen - Final
Nose No Methicillin Resistant Staphylococcus aureus isolated.
Imaging:
09/05/2023 Plain film right foot: There has been interval resection of the right third digit at the level of the distal metatarsal bone. There is plantar soft tissue area which appears to be mainly in the region of the second and third metatarsal
bones. There is also a small amount of air off the posterior and superior margin of the calcaneus, anterior to the distal Achilles tendon, unchanged from earlier radiographs. Please see full dictation for additional detail.
09/05/2023 MRI right lower extremity: Numerous rounded foci of decreased signal intensity within the soft tissues of the distal right foot consistent with foci of soft tissue air. There is also concern for foci of air into the third metatarsal bone
and proximal phalanx of the right third toe. Please see full dictation for additional detail.
[2023-09-08 16:06] VITALS: BP 153/69
--- NOTE | 2023-09-08 16:15 | W.PN.POD ---
Today's Communication
Today's Communication
Poor arterial perfusion to surgical site
Await results of Angiogram scheduled Monday
Assessment / Plan
-
Right LE cellulitis with 3rd toe gangrene
-Gas in plantar soft tissue based on MRI
-Status post I and D right foot with amputation 3rd toe and metatarsal head. Plantar incision extends to mid arch
-Dorsal and plantar incision packed open. No further malodor and cellulitis receding. Exposed deep tissue non viable. No sign of granulation
-OR cultures positive for MSSA and Strep. Leukocytosis trending down. Abx changed to Cefazolin as per ID.
-Appreciate Vascular Sx input. Scheduled for Angiogram Monday
DM uncontrolled with peripheral neuropathy
HgbA1c 10.1
RAYMOND on CKD
Subjective
Objective
Temp Pulse Resp BP Pulse Ox
98.4 F 86 20 153/69 96
09/08/23 16:06 09/08/23 16:06 09/08/23 16:06 09/08/23 16:06 09/08/23 16:06
09/08/23 07:07
09/08/23 07:07
Vital Signs and Lab results were reviewed.
Physical Exam
Physical Exam
Packing removed with no sign of granulation. Edema and erythema improved. Medial ankle with less tenderness on palpation and decreased localized edema.
[2023-09-08 17:06] LABS: Glucose - Point of Care 131 mg/dl (70-99)
[2023-09-08] MEDS: NOVOLOG FLEXPEN-MODERATE RESISTANCE SC (17:23)
[2023-09-08 21:39] LABS: Glucose - Point of Care 145 mg/dl (70-99)
[2023-09-08] MEDS: ANCEF 5 IV (21:40)
[2023-09-08] MEDS: LANTUS 0.3 UNITS SC (21:40)
[2023-09-08 22:45] VITALS: BP 133/58
[2023-09-09] MEDS: ROXICODONE 5 MG PO ×2 (04:40→19:48)
[2023-09-09] MEDS: TYLENOL 500 MG PO ×2 (04:40→21:29)
[2023-09-09] MEDS: ANCEF 5 IV ×3 (06:29→21:29)
[2023-09-09 07:05] VITALS: BP 137/60
[2023-09-09 07:15] LABS: Glucose - Point of Care 197 mg/dl (70-99)
[2023-09-09] MEDS: NORVASC 2.5 MG PO (08:12)
[2023-09-09] MEDS: TOPROL XL 50 MG PO ×2 (08:13→19:48)
[2023-09-09] MEDS: VITAMIN C 1000 MG PO (08:13)
[2023-09-09] MEDS: NOVOLOG FLEXPEN 25 UNITS SC ×3 (08:14→17:32)
[2023-09-09] MEDS: NOVOLOG FLEXPEN-MODERATE RESISTANCE 1 UNITS SC (08:15)
[2023-09-09 08:59] LABS: % Basophils 0.3 % (0-2); % Eosinophils 1.6 % (0-6); % Lymphocytes 5.6 % (20.5-51.1); % Monocytes 5.2 % (1.7-9.3); % Neutrophils 86.3 % (42.2-75.2); Absolute Basophils 0.1 10^3/uL (0-0.2); Absolute Eosinophils 0.3 10^3/uL (0-0.7); Absolute Immature Granulocytes 0.2 10^3/uL (0-0.05); Absolute Monocytes 0.9 10^3/uL (0.1-0.6); Absolute Neutrophils 15.5 10^3/uL (1.4-6.5); Hematocrit 24.7 % (39.0-52.0); Hemoglobin 8.3 g/dL (13.0-18.0); Mean Corp Hgb Conc. 33.6 g/dL (33.0-37.0); Mean Corpuscular Volume 83.4 fL (80.0-94.0); Mean Platelet Volume 9.8 fL (7.4-10.4); Nucleated Red Blood Cells % 0 % (-); Platelet Count 355 10^3/uL (130-400); Red Blood Cell Count 2.96 10^6/uL (4.70-6.10); Red Cell Dist. Width 13.7 % (11.5-14.5)
[2023-09-09 09:31] LABS: Erythrocyte Sed Rate 105 mm/hour (0-20)
[2023-09-09 09:33] LABS: ALT (SGPT) 99 U/L (0-50); AST (SGOT) 50 U/L (17-59); Albumin 2.5 g/dl (3.5-5.0); Alkaline Phosphatase 151 U/L (38-126); Blood Urea Nitrogen 44 mg/dl (9-20); Calcium 7.6 mg/dl (8.4-10.2); Carbon Dioxide 23 mmol/L (22-30); Chloride 102 mmol/L (98-107); Direct Bilirubin 0.2 mg/dl (0.0-0.4); Estimated Creatinine Clearance 47 ml/min; Glucose 153 mg/dl (70-99); Potassium 3.3 mmol/L (3.5-5.1); Sodium 133 mmol/L (135-145); Total Bilirubin 0.4 mg/dl (0.2-1.3); Total Protein 5.4 g/dl (6.3-8.2)
[2023-09-09] MEDS: KCL 40 MEQ PO (10:29)
[2023-09-09 11:31] LABS: Glucose - Point of Care 209 mg/dl (70-99)
[2023-09-09] MEDS: NOVOLOG FLEXPEN-MODERATE RESISTANCE 3 UNITS SC (12:32)
--- NOTE | 2023-09-09 12:50 | W.PN.NEPH.PH ---
Today's Communication / Plan
-
follow labs
IV fe course
replace k
ok for angio on Monday as long cr at baseline, need PPX bicarb IVF
Assessment/Plan
-
IMP:
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
HAGMA
RAYMOND with CKD stage 3b baseline cr 1.4-1.7
Transaminitis
Anemia of chronic disease with REGGIE complicated by anemia 2/2 CKD
DM type 2 with circulatory complications
HLD
Nicotine dependency
ASCVD
Hypoalbuminemia
Plan:
A/w right foot gangrene and s/p i&d with 3rd toe amp on 09/04
RAYMOND-cr improving to 1.7 at baseline, non oliguric
suspect from sepsis, UA with some ketones/glucose
KUS with no hydro, normal size kidneys
CT results noted from April with hydro after passing stone
hold Farxiga, ACEI and metformin
BP are stable, meds with holding parameters
anemia-follow h/h, fe def, can start IV fe as has no bacteremia, LFTs are better
renal dose meds, avoid nephrotoxins
monitor mild hyponatremia
replace k
noted potential A gram next week, likely benefit from PPX IVF
d/w pt and family
-
-
Date of Service: September 09, 2023
CC / HPI / ROS
-
Chief Complaint:
RAYMOND
History of Present Illness:
Cr slightly better at 1.7 today, baseline likely 1.5-1.7
hyperglycemia improving
BP stable
no fever
Review of Systems:
no cp or sob
feels well
some pain in the foot -improving
Labs
-
Labs:
WBC 18.0 10^3/uL (4.8-10.8) H 09/09/23 07:02
RBC 2.96 10^6/uL (4.70-6.10) L 09/09/23 07:02
Hgb 8.3 g/dL (13.0-18.0) L 09/09/23 07:02
Hct 24.7 % (39.0-52.0) L 09/09/23 07:02
Plt Count 355 10^3/uL (130-400) 09/09/23 07:02
Sodium 133 mmol/L (135-145) L 09/09/23 07:02
Potassium 3.3 mmol/L (3.5-5.1) L 09/09/23 07:02
Chloride 102 mmol/L (98-107) 09/09/23 07:02
Carbon Dioxide 23 mmol/L (22-30) 09/09/23 07:02
BUN 44 mg/dl (9-20) H 09/09/23 07:02
Creatinine 1.7 mg/dL (0.7-1.3) H 09/09/23 07:02
eGFR 42.30 09/09/23 07:02
Glucose 153 mg/dl (70-99) H 09/09/23 07:02
Calcium 7.6 mg/dl (8.4-10.2) L 09/09/23 07:02
Albumin 2.5 g/dl (3.5-5.0) L 09/09/23 07:02
Physical Exam
-
Vital Signs:
Vital Signs
Temp Pulse Resp BP Pulse Ox
98.3 F 75 16 137/60 95
09/09/23 07:05 09/09/23 07:05 09/09/23 07:05 09/09/23 07:05 09/09/23 08:15
Cardiovascular:: Regular rate and rhythm
Respiratory:: Bilateral: CTA
Lung Excursion:: Normal
Abdomen:: Nontender and Soft
Extremity Edema:: None: Bilateral:
Caraballo Catheter: No
Other Findings::
right foot in dressing, trace edema
[2023-09-09] MEDS: FERRLECIT 110 MG IV (13:49)
--- NOTE | 2023-09-09 14:08 | CM ---
CM reviewed chart, patient for Angiogram Monday. Patient remains on IV antibiotics. Watch for wound, PT needs. CM will continue to follow for all discharge planning needs.
Plan; watch for home PT/wound care needs.
--- NOTE | 2023-09-09 14:39 | W.PN.HOSP.TC ---
Today's Communication/Plan
-
cont ABx pending angio
Assessment / Plan
Assessment / Plan
73yo M with PMHx of DM, HTN, HLD came with c/o worsening discoloration of R toes. HE was seen by his bulk truck driver and was sent to ED for possible intervention. Had I&D on 09/05/23 and wound Cx grew S.Aureus. Metabolic acedosis improved. Patient had to
be started on insulin 2/2 poorly controlled blood glucose and family living educator was involved. VascSx panning on angio on 09/11/23
A/P:
#R multiple toes gangrene
#RLE tenosynovitis
#PAD
MRI with gas in the tissues
Vanco/Zosyn switched to Ancef as per ID consult
Bcx NTD
Wound Cx: MSSA and strep
Podiatry to follow: non viable tissue on I&D
VascSx planning angio
ESR/CRP to be followed
#HAGMA most likely 2/2 infection - resolved
#CKD stage 3b with creatinine elevation (not in RAYMOND range)
#Hypokalemia
Nephro consult
Cont IVF with KCL
#Transaminitis
#Elevated alk.phos
improving
most likely 2/2 RLE infection
no abd pain
hepatitis C Ab neg
#Anemia of chronic disease with REGGIE complicated by anemia 2/2 CKD
treat infection
Iron PO upon d/c
#DM type 2 with circulatory complications
Hold Farxiga
Insulin SS, Accuchecks, DM diet
HgbA1c 10.1% - start Lantus
DM educator
#HLD
hold statin
#Nicotine dependency
Nicoderm PRN
#ASCVD
cont BB
DVT ppx hep
Full code
I have spent at least 36 min reviewing chart, test results, communication with consultants and direct patient care
Anticipated Discharge: > 48 hours
Subjective/Interval History
-
Date of Service: September 09, 2023
Objective Data
-
Labs:
Laboratory Results
09/09/23
07:02
WBC 18.0 H
Hgb 8.3 L
Hct 24.7 L
Plt Count 355
Sodium 133 L
Potassium 3.3 L
Chloride 102
Carbon Dioxide 23
BUN 44 H
Creatinine 1.7 H
Glucose 153 H
Calcium 7.6 L
Total Bilirubin 0.4
AST 50
ALT 99 H
Alkaline Phosphatase 151 H
Vital Signs:
Vital Signs
Temp Pulse Resp BP Pulse Ox
98.3 F 75 16 137/60 95
09/09/23 07:05 09/09/23 07:05 09/09/23 07:05 09/09/23 07:05 09/09/23 08:15
I&O
09/08/23 09/09/23 09/10/23
06:59 06:59 06:59
Intake Total 3200 / 3200 1220 / 1220
Output Total 900 / 900 950 / 950
Balance 2300 / 2300 270 / 270
Review of Systems
-
All other systems: Reviewed and negative
Physical Exam
-
General: Well Developed, Well Nourished and No Apparent Distress
Respiratory: Clear to Auscultation
GI: Soft, Nontender and Nondistended
Musculoskeletal: No Clubbing, No Cyanosis and No Edema
Skin: Warm
Psych: Calm
[2023-09-09] MEDS: NSS 1000 IV (14:58)
[2023-09-09 15:20] VITALS: BP 153/65
[2023-09-09 16:46] LABS: Glucose - Point of Care 144 mg/dl (70-99)
[2023-09-09] MEDS: NOVOLOG FLEXPEN-MODERATE RESISTANCE SC (16:50)
[2023-09-09 21:21] LABS: Glucose - Point of Care 102 mg/dl (70-99)
[2023-09-09] MEDS: LANTUS 0.3 UNITS SC (21:29)
[2023-09-09 23:00] VITALS: BP 133/60
[2023-09-10] MEDS: NSS 1000 IV ×2 (01:48→21:03)
[2023-09-10 01:51] LABS: Glucose - Point of Care 203 mg/dl (70-99)
[2023-09-10] MEDS: ANCEF 5 IV ×3 (05:43→21:04)
--- NOTE | 2023-09-10 06:19 | W.PN.UPDATE ---
Update Note
Progress Note Update
Planning for lower extremity arteriogram 09/11/2023
Will plan for perioperative hydration with saline/bicarb
Follow-up on creatinine today and tomorrow
Call with questions or concerns
Speedy Caraballo III, MD
[facility]
[phone] (owjk)
[2023-09-10 07:05] VITALS: BP 151/66
[2023-09-10 07:07] LABS: Glucose - Point of Care 202 mg/dl (70-99)
[2023-09-10 07:28] LABS: % Basophils 0.3 % (0-2); % Eosinophils 1.7 % (0-6); % Immature Granulocytes 1.2 % (0-0.5); % Lymphocytes 5.7 % (20.5-51.1); % Monocytes 6.4 % (1.7-9.3); % Neutrophils 84.7 % (42.2-75.2); Absolute Basophils 0.1 10^3/uL (0-0.2); Absolute Eosinophils 0.3 10^3/uL (0-0.7); Absolute Immature Granulocytes 0.2 10^3/uL (0-0.05); Absolute Monocytes 1.1 10^3/uL (0.1-0.6); Absolute Neutrophils 14.9 10^3/uL (1.4-6.5); Hematocrit 24.5 % (39.0-52.0); Hemoglobin 8.3 g/dL (13.0-18.0); Mean Corp Hgb Conc. 33.9 g/dL (33.0-37.0); Mean Corpuscular Hgb 28.2 pg (27.0-31.0); Mean Corpuscular Volume 83.3 fL (80.0-94.0); Mean Platelet Volume 9.7 fL (7.4-10.4); Nucleated Red Blood Cells % 0 % (-); Platelet Count 372 10^3/uL (130-400); Red Blood Cell Count 2.94 10^6/uL (4.70-6.10); Red Cell Dist. Width 13.7 % (11.5-14.5); White Blood Cell Count 17.6 10^3/uL (4.8-10.8)
[2023-09-10 08:02] LABS: Blood Urea Nitrogen 31 mg/dl (9-20); Calcium 7.6 mg/dl (8.4-10.2); Carbon Dioxide 23 mmol/L (22-30); Chloride 102 mmol/L (98-107); Estimated Creatinine Clearance 57 ml/min; Glucose 170 mg/dl (70-99); Potassium 3.4 mmol/L (3.5-5.1); Sodium 132 mmol/L (135-145)
[2023-09-10] MEDS: NOVOLOG FLEXPEN 25 UNITS SC ×3 (08:41→18:08)
[2023-09-10] MEDS: NOVOLOG FLEXPEN-MODERATE RESISTANCE 3 UNITS SC ×2 (08:42→13:05)
[2023-09-10] MEDS: TOPROL XL 50 MG PO ×2 (08:43→19:44)
[2023-09-10] MEDS: VITAMIN C 1000 MG PO (08:43)
[2023-09-10] MEDS: NORVASC 2.5 MG PO (08:43)
[2023-09-10] MEDS: KCL 40 MEQ PO (08:45)
--- NOTE | 2023-09-10 09:47 | W.PN.HOSP.TC ---
Today's Communication/Plan
-
cont Abx
pending angio
cont IVF
Assessment / Plan
Assessment / Plan
73yo M with PMHx of DM, HTN, HLD came with c/o worsening discoloration of R toes. HE was seen by his milk pickup driver and was sent to ED for possible intervention. Had I&D on 09/05/23 and wound Cx grew S.Aureus. Metabolic acedosis improved. Patient had to
be started on insulin 2/2 poorly controlled blood glucose and alternative dispute resolution mediator was involved. VascSx panning on angio on 09/11/23
A/P:
#R multiple toes gangrene
#RLE tenosynovitis
#PAD
MRI with gas in the tissues
Vanco/Zosyn switched to Ancef as per ID consult
Bcx NTD
Wound Cx: MSSA and strep
Podiatry to follow: non viable tissue on I&D
VascSx planning angio
ESR/CRP to be followed
#HAGMA most likely 2/2 infection - resolved
#CKD stage 3b with creatinine elevation (not in RAYMOND range)
#Hypokalemia
Nephro consult
Cont IVF with KCL
#Transaminitis
#Elevated alk.phos
improving
most likely 2/2 RLE infection
no abd pain
hepatitis C Ab neg
#Anemia of chronic disease with REGGIE complicated by anemia 2/2 CKD
treat infection
Iron PO upon d/c
#DM type 2 with circulatory complications
Hold Farxiga
Insulin SS, Accuchecks, DM diet
HgbA1c 10.1% - start Lantus
DM educator
#HLD
hold statin
#Nicotine dependency
Nicoderm PRN
#ASCVD
cont BB
DVT ppx hep
Full code
I have spent at least 36 min reviewing chart, test results, communication with consultants and direct patient care
Anticipated Discharge: > 48 hours
Subjective/Interval History
-
Date of Service: September 10, 2023
Objective Data
-
Labs:
Laboratory Results
09/10/23
06:39
WBC 17.6 H
Hgb 8.3 L
Hct 24.5 L
Plt Count 372
Sodium 132 L
Potassium 3.4 L
Chloride 102
Carbon Dioxide 23
BUN 31 H
Creatinine 1.4 H
Glucose 170 H
Calcium 7.6 L
Vital Signs:
Vital Signs
Temp Pulse Resp BP Pulse Ox
98.3 F 76 20 151/66 95
09/10/23 07:05 09/10/23 07:05 09/10/23 07:05 09/10/23 07:05 09/10/23 07:05
I&O
09/09/23 09/10/23 09/11/23
06:59 06:59 06:59
Intake Total 1220 / 1220 2380 / 2380
Output Total 950 / 950 1000 / 1000
Balance 270 / 270 1380 / 1380
Physical Exam
-
General: No Apparent Distress
Respiratory: Clear to Auscultation
Cardiac: Regular Rhythm
GI: Soft, Nontender and Nondistended
Musculoskeletal: No Clubbing, No Cyanosis and No Edema
Psych: Calm
--- NOTE | 2023-09-10 09:48 | W.PN.POD ---
Today's Communication
Today's Communication
Await angiogram Monday
Assessment / Plan
-
Right LE cellulitis with 3rd toe gangrene
-Gas in plantar soft tissue based on MRI
-Status post I and D right foot with amputation 3rd toe and metatarsal head. Plantar incision extends to mid arch
-Dorsal and plantar incision packed open. No further malodor and cellulitis receding. Exposed deep tissue non viable. No sign of granulation
-OR cultures positive for MSSA and Strep. Abx changed to Cefazolin as per ID.
-Appreciate Vascular Sx input. Scheduled for Angiogram Monday
DM uncontrolled with peripheral neuropathy
HgbA1c 10.1
RAYMOND on CKD
Subjective
Objective
Temp Pulse Resp BP Pulse Ox
98.3 F 76 20 151/66 95
09/10/23 07:05 09/10/23 07:05 09/10/23 07:05 09/10/23 07:05 09/10/23 07:05
09/10/23 06:39
09/10/23 06:39
Vital Signs and Lab results were reviewed.
Physical Exam
Physical Exam
surgical site with no malodor and no drainage, but 4th toe dusky appearance. Deep tissue non viable, no granulation anywhere along the surgical site. Skin discoloration at the medial ankle also noted.
--- NOTE | 2023-09-10 10:43 | CM ---
CM reviewed chart, patient remains on antibiotics, angiogram Monday. CM will continue to follow for all discharge planning needs.
Plan; watch for wound/VN needs.
[2023-09-10 11:59] LABS: Glucose - Point of Care 249 mg/dl (70-99)
[2023-09-10] MEDS: FERRLECIT 110 MG IV (13:15)
[2023-09-10 15:18] VITALS: BP 139/68
--- NOTE | 2023-09-10 16:01 | W.PN.UPDATE ---
Update Note
Progress Note Update
As per new Cx with
Finegoldia magna and Bacteroides
Added oral Flagyl as per discussion with ID
[2023-09-10] MEDS: FLAGYL 500 MG PO ×2 (16:29→23:48)
[2023-09-10] MEDS: TYLENOL 500 MG PO ×2 (16:32→20:30)
[2023-09-10] MEDS: ROXICODONE 5 MG PO (16:33)
[2023-09-10 16:47] LABS: Glucose - Point of Care 128 mg/dl (70-99)
--- NOTE | 2023-09-10 16:58 | W.PN.NEPH.PH ---
Today's Communication / Plan
-
ok for angio tomorrow with preventive IVF if cr remains stable
Assessment/Plan
-
IMP:
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
HAGMA
RAYMOND with CKD stage 3b baseline cr 1.4-1.7
Transaminitis
Anemia of chronic disease with REGGIE complicated by anemia 2/2 CKD
DM type 2 with circulatory complications
HLD
Nicotine dependency
ASCVD
Hypoalbuminemia
Plan:
A/w right foot gangrene and s/p i&d with 3rd toe amp on 09/04
RAYMOND-cr improving to 1.4 at baseline, non oliguric
KUS with no hydro, normal size kidneys, u pcr 700MG/MG OF CR
hold Farxiga, ACEI and metformin
BP are stable, meds with holding parameters
anemia-follow h/h, fe def, ON IV fe COURSE
renal dose meds, avoid nephrotoxins
monitor mild hyponatremia
replace k
noted potential A gram with preventive IVF
d/w pt
-
-
Date of Service: September 10, 2023
CC / HPI / ROS
-
Chief Complaint:
RAYMOND
History of Present Illness:
Cr slightly better at 1.4 today, baseline likely 1.5-1.7
BP stable , k low 3.4
no fever
Review of Systems:
no cp or sob
feels well
Labs
-
Labs:
WBC 17.6 10^3/uL (4.8-10.8) H 09/10/23 06:39
RBC 2.94 10^6/uL (4.70-6.10) L 09/10/23 06:39
Hgb 8.3 g/dL (13.0-18.0) L 09/10/23 06:39
Hct 24.5 % (39.0-52.0) L 09/10/23 06:39
Plt Count 372 10^3/uL (130-400) 09/10/23 06:39
Sodium 132 mmol/L (135-145) L 09/10/23 06:39
Potassium 3.4 mmol/L (3.5-5.1) L 09/10/23 06:39
Chloride 102 mmol/L (98-107) 09/10/23 06:39
Carbon Dioxide 23 mmol/L (22-30) 09/10/23 06:39
BUN 31 mg/dl (9-20) H 09/10/23 06:39
Creatinine 1.4 mg/dL (0.7-1.3) H 09/10/23 06:39
eGFR 53.40 09/10/23 06:39
Glucose 170 mg/dl (70-99) H 09/10/23 06:39
Calcium 7.6 mg/dl (8.4-10.2) L 09/10/23 06:39
Albumin 2.5 g/dl (3.5-5.0) L 09/09/23 07:02
Physical Exam
-
Vital Signs:
Vital Signs
Temp Pulse Resp BP Pulse Ox
98.5 F 86 20 139/68 97
09/10/23 15:18 09/10/23 15:18 09/10/23 15:18 09/10/23 15:18 09/10/23 15:18
Cardiovascular:: Regular rate and rhythm
Respiratory:: Bilateral: CTA
Lung Excursion:: Normal
Abdomen:: Nontender and Soft
Extremity Edema:: None: Bilateral:
Caraballo Catheter: No
[2023-09-10] MEDS: NOVOLOG FLEXPEN-MODERATE RESISTANCE SC (18:09)
[2023-09-10 22:21] LABS: Glucose - Point of Care 170 mg/dl (70-99)
[2023-09-10] MEDS: LANTUS 0.3 UNITS SC (22:32)
[2023-09-10 23:06] VITALS: BP 128/83
[2023-09-11] VITALS (15 sets, daily range): BP systolic 118–146; BP diastolic 52–68
[2023-09-11] MEDS: ANCEF 5 IV ×3 (05:07→22:16)
[2023-09-11 06:28] LABS: Glucose - Point of Care 239 mg/dl (70-99)
[2023-09-11] MEDS: NOVOLOG FLEXPEN SC (06:29)
[2023-09-11] MEDS: NOVOLOG FLEXPEN-MODERATE RESISTANCE 3 UNITS SC (06:29)
[2023-09-11 07:52] LABS: % Basophils 0.3 % (0-2); % Eosinophils 1.9 % (0-6); % Monocytes 7.2 % (1.7-9.3); % Neutrophils 83.6 % (42.2-75.2); Absolute Eosinophils 0.3 10^3/uL (0-0.7); Absolute Immature Granulocytes 0.2 10^3/uL (0-0.05); Absolute Lymphocytes 0.9 10^3/uL (1.2-3.4); Absolute Monocytes 1.1 10^3/uL (0.1-0.6); Hematocrit 26.3 % (39.0-52.0); Hemoglobin 8.7 g/dL (13.0-18.0); Mean Corp Hgb Conc. 33.1 g/dL (33.0-37.0); Mean Corpuscular Hgb 28.4 pg (27.0-31.0); Mean Corpuscular Volume 85.9 fL (80.0-94.0); Mean Platelet Volume 9.3 fL (7.4-10.4); Nucleated Red Blood Cells % 0 % (-); Platelet Count 353 10^3/uL (130-400); Red Blood Cell Count 3.06 10^6/uL (4.70-6.10); Red Cell Dist. Width 13.7 % (11.5-14.5); White Blood Cell Count 15.6 10^3/uL (4.8-10.8)
[2023-09-11] MEDS: FLAGYL 500 MG PO ×3 (07:53→23:18)
[2023-09-11] MEDS: TOPROL XL 50 MG PO ×2 (07:54→19:43)
[2023-09-11] MEDS: VITAMIN C 1000 MG PO (07:54)
[2023-09-11] MEDS: NORVASC 2.5 MG PO (07:54)
[2023-09-11 08:25] LABS: Blood Urea Nitrogen 25 mg/dl (9-20); Calcium 7.7 mg/dl (8.4-10.2); Carbon Dioxide 24 mmol/L (22-30); Chloride 103 mmol/L (98-107); Estimated Creatinine Clearance 57 ml/min; Glucose 203 mg/dl (70-99); Potassium 3.9 mmol/L (3.5-5.1); Sodium 132 mmol/L (135-145)
--- NOTE | 2023-09-11 08:28 | PN.DE.MGMTRT ---
Insulin Management
- -
09/11/2023: Diabetes Management F/U:
Patient admitted with worsening discoloration of Right foot toes due to 3rd toe gangrene and RLE tenosynovitis. MRI noted for gas in the tissues
PMH: ASCVD, HTN, HLD, CKD IIIb, Anemia of chronic disease with REGGIE complicated by anemia 2/2 CKD, Nicotine dependency and T2DM. Was taking Metformin 1000 mg BID and Farxiga 10mg daily prior to admission. A1C 10.1%, Cr 2.6, eGFR 25.41.
States he has had diabetes 10 to 15 years but never tested his glucose. Discussed current A1C and glucose trend, pt made aware that insulin is the only safe option for mgt, with uptrending Cr. Pt was hesitant at first stating that he was hoping he
wouldn't need insulin because he lives on a fixed budget but was agreeable when he learned that insurance will likely cover most of the cost of his insulin especially if he didn't have any issues with coverage of Farxiga.
09/06 Instructed patient on prep and injection technique for pre filled pens with fair return demonstration. Provided home pen needles, nursing to continue reinforcing self inject at all meals. Instructed on action of both Lantus and NovoLog and
injection sites. Verbalized understanding.
Provided Contour next glucose monitor and instructed with good return demonstration.
Pt awake, A/Ox3, Resting in bed, offers no complaints, able to discuss diabetes mgt.
POD #6 s/p I& D of right foot w/amputation of 3rd toe and metatarsal head.
NPO for Angiogram today. Cr improving, 2.4-->1.4, eGFR 27.97-->53.40 today
Lantus 30 units 09/10 @ HS, fasting glucose 203(V), 239 POC today. Will increase HS Lantus to 35 units.
09/09 premeal glucose range was 128 to 248, more elevated in AM, requiring 3 units additional corrective insulin with breakfast and lunch.
Will increase breakfast and lunch NovoLog dose to 28 units and cont 25 units before dinner.
Use moderate corrective while NPO for procedure.
Metformin and Farxiga were stopped due to eGFR 27.97. Will cont to follow and reassess if safe to resume both.
Diabetes History
- -
Type of Diabetes: 2 requiring insulin
Pre-Admission Diabetes Regimen
09/11/23
07:38
Creatinine 1.4 H
Lab Results
Hemoglobin A1c 10.1 % (4.0-5.6) H 09/05/23 08:10
Insulin Pump Settings
IP Diabetes Regimen
09/10/23 09/10/23 09/10/23
11:47 16:46 22:19
Glucose
POC Glucose 249 H 128 H 170 H
09/11/23 09/11/23
06:27 07:38
Glucose 203 H
POC Glucose 239 H
Meal type: Breakfast
Meal type: Dinner
Meal type: Lunch
Meal type: Breakfast
Amount consumed: 100%
Amount consumed: 100%
Amount consumed: 100%
Patient Education
--- NOTE | 2023-09-11 10:33 | W.PN.NEPH.PH ---
Today's Communication / Plan
-
For angiogram today of lower extremities
Preoperative contrast prophylaxis fluids provided
Assessment/Plan
-
IMP:
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
HAGMA
RAYMOND with CKD stage 3b baseline cr 1.4-1.7
Transaminitis
Anemia of chronic disease with REGGIE complicated by anemia 2/2 CKD
DM type 2 with circulatory complications
HLD
Nicotine dependency
ASCVD
Hypoalbuminemia
Plan:
A/w right foot gangrene and s/p i&d with 3rd toe amp on 09/04
RAYMOND-cr improving to 1.4 at baseline, non oliguric
KUS with no hydro, normal size kidneys, u pcr 700MG/MG OF CR
holding Farxiga, ACEI and metformin
BP are stable, meds with holding parameters
anemia-follow h/h, fe def, ON IV fe COURSE
renal dose meds, avoid nephrotoxins
monitor mild hyponatremia
replace k
noted potential A gram with preventive IVF today
d/w pt
-
-
Date of Service: September 11, 2023
CC / HPI / ROS
-
Chief Complaint:
RAYMOND
History of Present Illness:
Cr slightly better at 1.4 today, baseline likely 1.5-1.7
BP stable
no fever
Review of Systems:
no cp or sob
feels well
Labs
-
Labs:
WBC 15.6 10^3/uL (4.8-10.8) H 09/11/23 07:38
RBC 3.06 10^6/uL (4.70-6.10) L 09/11/23 07:38
Hgb 8.7 g/dL (13.0-18.0) L 09/11/23 07:38
Hct 26.3 % (39.0-52.0) L 09/11/23 07:38
Plt Count 353 10^3/uL (130-400) 09/11/23 07:38
Sodium 132 mmol/L (135-145) L 09/11/23 07:38
Potassium 3.9 mmol/L (3.5-5.1) 09/11/23 07:38
Chloride 103 mmol/L (98-107) 09/11/23 07:38
Carbon Dioxide 24 mmol/L (22-30) 09/11/23 07:38
BUN 25 mg/dl (9-20) H 09/11/23 07:38
Creatinine 1.4 mg/dL (0.7-1.3) H 09/11/23 07:38
eGFR 53.40 09/11/23 07:38
Glucose 203 mg/dl (70-99) H 09/11/23 07:38
Calcium 7.7 mg/dl (8.4-10.2) L 09/11/23 07:38
Albumin 2.5 g/dl (3.5-5.0) L 09/09/23 07:02
Physical Exam
-
Vital Signs:
Vital Signs
Temp Pulse Resp BP Pulse Ox
98.6 F 80 18 146/63 95
09/11/23 07:05 09/11/23 07:05 09/11/23 07:05 09/11/23 07:05 09/11/23 08:20
Cardiovascular:: Regular rate and rhythm
Respiratory:: Bilateral: CTA
Lung Excursion:: Normal
Abdomen:: Nontender and Soft
Extremity Edema:: None: Bilateral:
Caraballo Catheter: No
[2023-09-11 11:03] LABS: Glucose - Point of Care 202 mg/dl (70-99)
--- NOTE | 2023-09-11 11:56 | W.PN.HOSP.TC ---
Today's Communication/Plan
-
Trend cr
Abx continues
Angio today
Assessment / Plan
Assessment / Plan
73yo M with PMHx of DM, HTN, HLD came with c/o worsening discoloration of R toes. 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 Had I&D on 09/05/23 and wound Cx grew S.Aureus. Metabolic acedosis improved. Patient had to
be started on insulin 2/2 poorly controlled blood glucose and rn diabetes educator was involved. VascSx panning on angio on 09/11/23
A/P:
#R multiple toes gangrene
#RLE tenosynovitis
#PAD
MRI with gas in the tissues
Vanco/Zosyn switched to Ancef/flagyl as per ID consult
Bcx NTD
Wound Cx: MSSA and strep
Podiatry to follow: non viable tissue on I&D
VascSx planning angio today.
nephro following along-elevated Cr.
ESR/CRP to be followed
#HAGMA most likely 2/2 infection - resolved
#CKD stage 3b with creatinine elevation (not in RAYMOND range)
#Hypokalemia
Nephro consult
IVF per nephro.
#Transaminitis
#Elevated alk.phos
improving
most likely 2/2 RLE infection
no abd pain
hepatitis C Ab neg
#Anemia of chronic disease with REGGIE complicated by anemia 2/2 CKD
treat infection
Iron PO upon d/c
#DM type 2 with circulatory complications
Hold Farxiga
Insulin SS, Accuchecks, DM diet
HgbA1c 10.1% - start Lantus
DM educator
#HLD
hold statin
#Nicotine dependency
Nicoderm PRN
#ASCVD
cont BB
DVT ppx hep
Full code
Anticipated Discharge: > 48 hours
Subjective/Interval History
-
Date of Service: September 11, 2023
Denies R foot pain
Objective Data
-
Labs:
Laboratory Results
09/11/23
07:38
WBC 15.6 H
Hgb 8.7 L
Hct 26.3 L
Plt Count 353
Sodium 132 L
Potassium 3.9
Chloride 103
Carbon Dioxide 24
BUN 25 H
Creatinine 1.4 H
Glucose 203 H
Calcium 7.7 L
Vital Signs:
Vital Signs
Temp Pulse Resp BP Pulse Ox
98.3 F 77 14 126/63 94
09/11/23 10:20 09/11/23 10:20 09/11/23 10:20 09/11/23 10:20 09/11/23 10:20
I&O
09/10/23 09/11/23 09/12/23
06:59 06:59 06:59
Intake Total 2380 / 2380 2930 / 2930
Output Total 1000 / 1000 2450 / 2450
Balance 1380 / 1380 480 / 480
Physical Exam
-
General: No Apparent Distress and Appears Chronically Ill
Respiratory: Clear to Auscultation
Cardiac: Regular Rhythm and S1/S2
GI: Soft, Nontender, Nondistended and Normal Bowel Sounds
Musculoskeletal: No Clubbing, No Cyanosis and Other (R foot covered in dressing/kiel wrap. warm to touch. )
Neuro: Awake, Alert and AO x 3
Psych: Calm
--- NOTE | 2023-09-11 12:00 | W.SUR.PREOP ---
Pre-Operative Surgical Note
-
I have examined this patient prior to the performance of the scheduled procedure.
The patient's condition is unchanged from the time of the current History and
Physical and the patient is able to undergo the scheduled procedure.
[2023-09-11] MEDS: NOVOLOG FLEXPEN-MODERATE RESISTANCE SC (12:21)
[2023-09-11 13:54] LABS: Glucose - Point of Care 199 mg/dl (70-99)
[2023-09-11] MEDS: ASPIRIN 325 MG PO (14:15)
--- NOTE | 2023-09-11 14:32 | CM ---
CM reviewed chart, patient off floor, for Angio today. Patient remains on IV antibiotics. CM will continue to follow for all discharge planning needs.
Plan; watch for VN/wound care needs, IV antibiotic needs.
[2023-09-11] MEDS: NSS 1000 IV (14:37)
--- NOTE | 2023-09-11 14:39 | OR.RPT ---
Operative Report
Operative Report
Date of Operation: 09/11/2023
Pre Op Diagnosis: Critical limb threatening ischemia right lower extremity
Post Op Diagnosis: Critical limb threatening ischemia right lower extremity
Procedure:
1.) Intravascular lithotripsy to right posterior tibial artery and extending into tibioperoneal trunk (3 mm x 80 mm E8 shockwave balloon)
2.) Intravascular lithotripsy to right popliteal artery (6 mm x 60 mm M5+ shockwave balloon)
3.) Balloon angioplasty to distal posterior tibial artery behind the medial malleolus (2 mm x 40 mm balloon)
4.) Diagnostic aortobiiliac arteriogram
5.) Diagnostic right lower extremity arteriogram
6.) Ultrasound-guided percutaneous access to the left common femoral artery
Surgeon: Speedy Caraballo III, MD
Construction Contractor: Vahid Chiu MD PGY-2
Anesthesia: Sedation with local
Fluoroscopy:
39.4 min
148 mGy
67.51 Gy.cm2
Complications: None
Estimated Blood Loss: Minimal
History and Indications for Procedure: 73-year-old male with critical limb threatening ischemia of the right lower extremity manifested by necrotic right foot wound and associated infection.
Procedure in Detail: Flaquito Jamil was correctly identified and placed supine on the operating table. After adequate induction of anesthesia the bilateral groins were prepped and draped in the usual sterile fashion. A timeout was performed with the
nursing and anesthesia staff confirming the patient's identity as well as the nature and laterality of the procedure.
The left common femoral artery was identified under ultrasound guidance. The artery was patent. The superior and inferior aspects of the femoral head were identified with radiographic guidance and marked at the skin level. The proposed puncture site
was infiltrated with local anesthesia. We saved a copy of the ultrasound image to the medical record. Under ultrasound guidance we accessed the left common femoral artery with a micropuncture needle and upsized to a 5 Fr sheath over a Bentson wire.
The wire and a [employer] To Get Approved For hook flush catheter were advanced into the distal abdominal aorta and a diagnostic aorto-biiliac arteriogram was performed:
AORTO-ILIAC ARTERIOGRAM:
Aorta: Patent with no stenosis identified
Right common iliac artery: Patent with no stenosis identified
Right external iliac artery: Patent with no stenosis identified
Left common iliac artery: Patent with no stenosis identified
Left external iliac artery: Patent with no stenosis identified
Under roadmap guidance using a Glidewire and the [place] community healtherEasiest Credit Card To Get Approved For hook catheter we selected the right common iliac artery and then the external iliac artery. A catheter was tracked up and over the aortic bifurcation and placed in the distal external iliac
artery. A diagnostic right lower extremity arteriogram was then performed which demonstrated the following:
RIGHT LOWER EXTREMITY:
Common femoral artery: Patent with no stenosis identified
Profunda femoral artery: Patent with no stenosis identified
Superficial femoral artery: Patent with areas of mild scattered stenosis throughout
Popliteal artery: Patent. Bulky calcified plaque contributing to stenosis behind the knee
Anterior tibial artery: Short stump patent but occluded thereafter. Sluggish reconstitution of the dorsalis pedis artery in the foot
Tibioperoneal trunk: Patent. Calcified stenosis identified
Peroneal artery: Patent to the ankle with no significant stenosis identified
Posterior tibial artery: Diffuse high-grade stenosis throughout. Behind the medial malleolus high-grade stenosis/focal segmental occlusion identified. Delayed reconstitution of single plantar branch.
ENDOVASCULAR INTERVENTION: Systemic heparin was administered. Selected the superficial femoral artery with a Glidewire and mckeon's the catheter. Exchanged out for a 6 Fr 90 cm sheath over a Storq wire. Selected the posterior tibial artery under
roadmap guidance with Quickcross catheter and glidewire. The stenosis was crossed with a Quickcross and Glidewire. The high-grade stenosis/focal occlusion posterior to the medial malleolus was successfully crossed with a 0.014 COMM[employer] ASS[employer]ATION MANAGER wire and CXI
catheter. The wire was advanced into the plantar branch patent in the foot. Under roadmap guidance I positioned a 2 mm x 40 mm angioplasty balloon across this high-grade stenosis/focally occluded segment behind the medial malleolus. This area was
treated by inflating the balloon to nominal pressure and holding in place for 2-minute inflation. 2 balloon inflations were used to treat the entire segment. Following this we then proceeded with intervention on the remainder of the posterior
tibial artery stenosis more proximally. Due to the calcified nature of the arterial disease and in an effort to modify the calcium to achieve maximum luminal gain with endovascular intervention I elected to proceed with intravascular lithotripsy. A
3 mm x 80 mm E8 shockwave balloon was placed across the stenosis under roadmap guidance. Alternating rounds of lithotripsy pulse delivery at sub-nominal pressure and angioplasty at nominal pressure was performed across the stenosis. In between
rounds of pulse delivery and angioplasty the balloon was deflated and repositioned under roadmap guidance. The entirety of the posterior tibial artery stenosis as well as the stenosis in the tibioperoneal trunk was treated with the E8 catheter.
All 400 pulses were delivered.
Subsequent arteriogram demonstrated an excellent technical result. There was brisk flow through the posterior tibial artery that matched flow through the peroneal artery. The posterior tibial artery continued across the ankle and into the foot to
form plantar branches which were not as clearly identified pretreatment.
We then focused our attention on the popliteal artery disease. Due to the heavily calcified nature of the arterial disease and in an effort to modify the calcium to achieve maximum luminal gain with endovascular intervention I elected to proceed
with intravascular lithotripsy. A 6 mm x 60 mm M5+ Shockwave balloon was placed across the popliteal artery stenosis behind the knee under roadmap guidance. Alternating rounds of lithotripsy pulse delivery at sub-nominal pressure and angioplasty at
nominal pressure was performed across the stenosis. In between rounds of pulse delivery and angioplasty the balloon was deflated and repositioned under roadmap guidance. All 300 pulses were delivered.
Completion arteriogram demonstrated an excellent technical result with a widely patent popliteal artery, brisk flow and no residual stenosis identified.
Satisfied with this result we concluded the procedure. The sheath tip was pulled back into the left external iliac artery. Protamine was administered. The sheath was secured in place with the plan to pull it in the recovery room.
The patient tolerated the procedure well and was taken to the recovery area in stable condition.
Attestation: I was present and responsible for the entire procedure.
Signed:
Speedy Caraballo III, MD
[facility] V[facility] Surgery
[phone] ([email or web address])
[2023-09-11] MEDS: FERRLECIT 110 MG IV (15:37)
[2023-09-11 16:40] LABS: Glucose - Point of Care 257 mg/dl (70-99)
[2023-09-11] MEDS: NOVOLOG FLEXPEN 25 UNITS SC (17:11)
[2023-09-11] MEDS: NOVOLOG FLEXPEN-MODERATE RESISTANCE 5 UNITS SC (17:11)
--- NOTE | 2023-09-11 19:56 | W.IMMPOSTOP ---
Surgical Immed Post Op Note
-
Primary Surgeon: Speedy Caraballo III, MD
Assisting Surgeon: Vahid Chiu MD
Pre-op Diagnosis: Non-healing right foot wound
Post-op Diagnosis: As above
Procedure Performed: PT shockwave lithotripsy, below-knee pop shockwave lithotripsy
Anesthesia Type: Sedation
Specimen / Cultures: NA
Estimated Blood Loss: 2cc
Complications: None
Operative Findings: Completely occluded right PT on initial angiogram. PT shockwave lithotripsy, below-knee pop shockwave lithotripsy performed. Return of brisk flow following.
[2023-09-11 21:17] LABS: Glucose - Point of Care 276 mg/dl (70-99)
[2023-09-11] MEDS: LANTUS 0.35 UNITS SC (22:16)
[2023-09-12 01:45] VITALS: BP 128/65
[2023-09-12] MEDS: NSS 1000 IV (04:14)
[2023-09-12] MEDS: ANCEF 5 IV ×3 (05:30→21:35)
[2023-09-12 05:46] VITALS: BP 124/64
[2023-09-12 07:00] VITALS: BP 149/75
[2023-09-12 07:30] LABS: % Basophils 0.1 % (0-2); % Eosinophils 0.1 % (0-6); % Immature Granulocytes 1.3 % (0-0.5); % Lymphocytes 5.6 % (20.5-51.1); % Monocytes 5.6 % (1.7-9.3); % Neutrophils 87.3 % (42.2-75.2); Absolute Immature Granulocytes 0.2 10^3/uL (0-0.05); Absolute Lymphocytes 0.8 10^3/uL (1.2-3.4); Absolute Monocytes 0.8 10^3/uL (0.1-0.6); Absolute Neutrophils 12.5 10^3/uL (1.4-6.5); Hematocrit 25.2 % (39.0-52.0); Hemoglobin 8.4 g/dL (13.0-18.0); Mean Corp Hgb Conc. 33.3 g/dL (33.0-37.0); Mean Platelet Volume 9.8 fL (7.4-10.4); Nucleated Red Blood Cells % 0 % (-); Platelet Count 386 10^3/uL (130-400); Red Cell Dist. Width 13.8 % (11.5-14.5); White Blood Cell Count 14.4 10^3/uL (4.8-10.8)
--- NOTE | 2023-09-12 07:50 | W.PN.VS ---
Addendum entered and electronically signed by Speedy Caraballo III, MD 09/12/23 09:43:
This patient was seen and examined with DARRIAN Price. I agree with the history and physical exam as well as the assessment and plan. I have the following additions:
Doing well
Groin puncture site soft
Doppler signal present at the right posterior tibial artery
Will discuss additional podiatric surgical intervention on his right foot with Dr. Ojeda.
Call with questions or concerns
Signed:
Speedy Caraballo III, MD
[facility] Vascular Surgery
[phone] ([id number])
Original Note:
Today's Communication / Plan
-
Seen and assessed with Dr. Caraballo
Assessment/Plan
-
POD 1 Intravascular lithotripsy to right posterior tibial artery and extending into tibioperoneal trunk (3 mm x 80 mm E8 shockwave balloon)
Intravascular lithotripsy to right popliteal artery (6 mm x 60 mm M5+ shockwave balloon)
Balloon angioplasty to distal posterior tibial artery behind the medial malleolus (2 mm x 40 mm balloon)
Diagnostic aortobiiliac arteriogram
Diagnostic right lower extremity arteriogram
Ultrasound-guided percutaneous access to the left common femoral artery
Plan:
-Debridement/amputation per podiatry
-Will follow closely in our office, appointment added to chart
Subjective Data
-
Date of Service: September 12, 2023
Patient seen at bedside this a.m. with Dr. Caraballo. Spoke with him at length about need for further debridement/possible TMA for best healing potential status post angiogram. No events overnight.
Objective Data
-
Vital Signs
Temp Pulse Resp BP Pulse Ox
97.9 F 72 16 124/64 93
09/12/23 05:46 09/12/23 05:46 09/12/23 05:46 09/12/23 05:46 09/12/23 05:46
Intake and Output
09/11/23 09/12/23 09/13/23
06:59 06:59 06:59
Intake Total 2930 / 2930 2850 / 2850
Output Total 2450 / 2450 1150 / 1150
Balance 480 / 480 1700 / 1700
Intake:
Oral fluids 1920 / 1920 1440 / 1440
IV fluids (Total) 900 / 900 1300 / 1300
Normosol 100 / 100
IV piggybacks 110 / 110 110 / 110
Output:
Urine, Voided 2450 / 2450 1150 / 1150
Other:
Number of approximated MODERATE 1
amounts of urine
Number of approximated LARGE 1
amounts of urine
Lab Results
09/12/23 06:47
Calcium 7.7 mg/dl (8.4-10.2) L 09/11/23 07:38
Magnesium 1.9 mg/dl (1.6-2.3) 09/07/23 08:22
Total Bilirubin 0.4 mg/dl (0.2-1.3) 09/09/23 07:02
Direct Bilirubin 0.2 mg/dl (0.0-0.4) 09/09/23 07:02
AST 50 U/L (17-59) 09/09/23 07:02
ALT 99 U/L (0-50) H 09/09/23 07:02
Alkaline Phosphatase 151 U/L (38-126) H 09/09/23 07:02
Total Protein 5.4 g/dl (6.3-8.2) L 09/09/23 07:02
Albumin 2.5 g/dl (3.5-5.0) L 09/09/23 07:02
Physical Exam
-
AAOx3
No tachypnea on room air
No tachycardia
Groin site clean, dry, intact, soft, no drainage
+Doppler PT signal, foot wrapped by podiatry
Yesterday in OR tissue of the right foot appeared nonviable, murky
[2023-09-12 07:54] LABS: ALT (SGPT) 38 U/L (0-50); AST (SGOT) 32 U/L (17-59); Albumin 2.4 g/dl (3.5-5.0); Alkaline Phosphatase 114 U/L (38-126); Blood Urea Nitrogen 29 mg/dl (9-20); Calcium 7.6 mg/dl (8.4-10.2); Carbon Dioxide 24 mmol/L (22-30); Chloride 104 mmol/L (98-107); Estimated Creatinine Clearance 57 ml/min; Glucose 235 mg/dl (70-99); Potassium 4.2 mmol/L (3.5-5.1); Sodium 132 mmol/L (135-145); Total Bilirubin 0.2 mg/dl (0.2-1.3); Total Protein 5.3 g/dl (6.3-8.2)
[2023-09-12 08:11] LABS: Glucose - Point of Care 263 mg/dl (70-99)
[2023-09-12] MEDS: NOVOLOG FLEXPEN-MODERATE RESISTANCE 5 UNITS SC (08:29)
[2023-09-12] MEDS: NOVOLOG FLEXPEN 28 UNITS SC ×2 (08:30→12:47)
[2023-09-12] MEDS: TOPROL XL 50 MG PO ×2 (08:31→21:34)
[2023-09-12] MEDS: VITAMIN C 1000 MG PO (08:31)
[2023-09-12] MEDS: LOW STRENGTH ASPIRIN 81 MG PO (08:31)
[2023-09-12] MEDS: FLAGYL 500 MG PO ×3 (08:31→23:02)
[2023-09-12] MEDS: NORVASC 2.5 MG PO (08:32)
--- NOTE | 2023-09-12 09:01 | PN.DE.MGMTRT ---
Insulin Management
- -
09/12/2023: Diabetes Management Follow up
Patient admitted with worsening discoloration of Right foot toes due to 3rd toe gangrene and RLE tenosynovitis. MRI noted for gas in the tissues
PMH: ASCVD, HTN, HLD, CKD IIIb, Anemia of chronic disease with REGGIE complicated by anemia 2/2 CKD, Nicotine dependency and T2DM. Was taking Metformin 1000 mg BID and Farxiga 10mg daily prior to admission. A1C 10.1%, Cr 2.6, eGFR 25.41.
States he has had diabetes 10 to 15 years but never tested his glucose. Discussed current A1C and glucose trend, pt made aware that insulin is the only safe option for mgt, with uptrending Cr. Pt was hesitant at first stating that he was hoping he
wouldn't need insulin because he lives on a fixed budget but was agreeable when he learned that insurance will likely cover most of the cost of his insulin especially if he didn't have any issues with coverage of Farxiga.
09/06 Instructed patient on prep and injection technique for pre filled pens with fair return demonstration. Provided home pen needles, nursing to continue reinforcing self inject at all meals. Instructed on action of both Lantus and NovoLog and
injection sites. Verbalized understanding.
Provided Contour next glucose monitor and instructed with good return demonstration.
Pt awake, A/Ox3, Resting in bed, offers no complaints, able to discuss diabetes mgt. States he feels confident with giving himself injections. He is concerned that he does not have a routine set up. Reassured him we would work to have a routine
established as far as doses and times to take injections.
POD #7 s/p I& D of right foot w/amputation of 3rd toe and metatarsal head. POD 1 s/p angiogram with lithotripsy
Lantus 35 units 09/10 @ HS, fasting glucose 235(V), 263 POC today. Will increase HS Lantus to 40 units.
09/10 premeal glucose range was 202 to 257, requiring 5 units additional corrective insulin with dinner.
Will increase NovoLog dose to 30 units AC.
Will resume Farxiga today 10 mg daily.
Diabetes History
- -
Type of Diabetes: 2 requiring insulin
Pre-Admission Diabetes Regimen
09/12/23
06:47
Creatinine 1.4 H
Lab Results
Hemoglobin A1c 10.1 % (4.0-5.6) H 09/05/23 08:10
Insulin Pump Settings
IP Diabetes Regimen
09/11/23 09/11/23 09/11/23
10:51 13:53 16:38
Glucose
POC Glucose 202 H 199 H 257 H
09/11/23 09/12/23 09/12/23
21:16 06:47 08:08
Glucose 235 H
POC Glucose 276 H 263 H
Meal type: Dinner
Meal type: Lunch
Amount consumed: 100%
Patient Education
[2023-09-12] MEDS: FARXIGA 10 MG PO (10:00)
--- NOTE | 2023-09-12 10:30 | WOUNDNOTE ---
SANDI RN NOTE: Spoke to patient and reviewed vascular and Podiatry notes. Patient reports Podiatry closely following and plans for a debridement of R plantar foot today. Also patient reports vascular was able to open some blood flow to R foot and will
follow as outpatient. Hgb A1c 10.1, diabetic CREDIT CARD SPECIALIST on consult. Will sign off unless needed.
--- NOTE | 2023-09-12 10:34 | CM ---
Patient seen bedside, reports no needs to CM at this time. Patient remains on IV antibiotics. Watch for wound care/VN needs upon discharge. CM will continue to follow for all discharge planning needs.
Plan; watch for VN/wound needs.
--- NOTE | 2023-09-12 10:58 | PTOTSP ---
PT signing off as Pt has been declining PT but walking to bathroom with RN. He says he understands his heel weight bearing restriction. He is for possible TMA surgery and may need reconsult post operatively. Discussed this with RN.
[2023-09-12 11:00] VITALS: BP 127/54
[2023-09-12 11:55] LABS: Glucose - Point of Care 249 mg/dl (70-99)
--- NOTE | 2023-09-12 12:04 | W.PN.HOSP.TC ---
Today's Communication/Plan
-
Await further podiatry recs
Strict glycemic control
Trend creatinine/sodium
Continue with antibiotics
Assessment / Plan
Assessment / Plan
73yo M with PMHx of DM, HTN, HLD came with c/o worsening discoloration of R toes. HE was seen by his tilt tray driver and was sent to ED for possible intervention. Had I&D on 09/05/23 and wound Cx grew S.Aureus. Metabolic acedosis improved. Patient had to
be started on insulin 2/2 poorly controlled blood glucose and religious educator was involved. VascSx panning on angio on 09/11/23
A/P:
#R lower extremity with third toe gangrene
#RLE tenosynovitis
#PAD
MRI with gas in the tissues
Vanco/Zosyn switched to Ancef/flagyl as per ID consult
Bcx NTD
Wound Cx: MSSA and strep
Podiatry to follow: non viable tissue on I&D
Vascular evaluated status post right lower extremity angiogram
nephro following along-elevated Cr.
ESR/CRP to be followed
Discussed with podiatry who will reevaluate patient later today for further intervention
# Peripheral arterial disease status post angiogram
Status post lithotripsy right lower extremity/angioplasty
Started on aspirin and continue statin
#HAGMA most likely 2/2 infection - resolved
#RAYMOND on CKD stage 3b
#Mild hyponatremia
#Hypokalemia
Nephro consult
IVF per nephro.
#Transaminitis
#Elevated alk.phos
most likely 2/2 RLE infection
no abd pain
hepatitis C Ab neg
Resolved
#Anemia of chronic disease with REGGIE complicated by anemia 2/2 CKD
treat infection
IV iron course started
Iron PO upon d/c
#DM type 2 with circulatory complications/uncontrolled
on Farxiga
Insulin SS, Accuchecks, DM diet
HgbA1c 10.1% - start Lantus 40u qhs and novolog 28 u AC
DM educator
Counseled patient multiple times about strict glycemic control upon discharge for appropriate wound healing
POC am 263
#HLD
restart statin
#Nicotine dependency
Nicoderm PRN
#ASCVD
cont BB
DVT ppx hep
Full code
Anticipated Discharge: > 48 hours
Subjective/Interval History
-
Date of Service: September 12, 2023
Denies pain to R foot
Objective Data
-
Labs:
Laboratory Results
09/12/23
06:47
WBC 14.4 H
Hgb 8.4 L
Hct 25.2 L
Plt Count 386
Sodium 132 L
Potassium 4.2
Chloride 104
Carbon Dioxide 24
BUN 29 H
Creatinine 1.4 H
Glucose 235 H
Calcium 7.6 L
Total Bilirubin 0.2
AST 32
ALT 38
Alkaline Phosphatase 114
Vital Signs:
Vital Signs
Temp Pulse Resp BP Pulse Ox
97.9 F 57 18 149/75 95
09/12/23 07:00 09/12/23 07:00 09/12/23 07:00 09/12/23 07:00 09/12/23 09:00
I&O
09/11/23 09/12/23 09/13/23
06:59 06:59 06:59
Intake Total 2930 / 2930 2850 / 2850
Output Total 2450 / 2450 1150 / 1150
Balance 480 / 480 1700 / 1700
Physical Exam
-
General: No Apparent Distress and Appears Chronically Ill
Respiratory: Clear to Auscultation
Cardiac: Regular Rhythm and S1/S2
GI: Soft, Nontender, Nondistended and Normal Bowel Sounds
Musculoskeletal: No Clubbing, No Cyanosis and Other (R foot covered in dressing/kiel wrap. warm to touch. )
Neuro: Awake, Alert, Oriented and AO x 3
Psych: Calm
Data Reviewed
-
Total Time Spent with Patient (in minutes): 57
[2023-09-12] MEDS: NOVOLOG FLEXPEN-MODERATE RESISTANCE 3 UNITS SC (12:48)
--- NOTE | 2023-09-12 13:05 | W.PN.POD ---
Today's Communication
Today's Communication
Increased distal perfusion status post MACHINE SHORTHAND REPORTER angiogram/lithotripsy. Will discuss with Dr. Caraballo and schedule additional debridement, possibly tomorrow
Assessment / Plan
-
Right LE cellulitis with 3rd toe gangrene
-Gas in plantar soft tissue based on MRI
-Status post I and D right foot with amputation 3rd toe and metatarsal head. Plantar incision extends to mid arch
-Dorsal and plantar incision packed open. No further malodor and cellulitis receding. Exposed deep tissue non viable. No sign of granulation
-Continue IV antibiotic therapy as per ID. WBC now 14.
-Angioplasty yesterday showing completely occluded right PT artery. BK shockwave lithotripsy performed to PT artery extending to tibioperoneal trunk
-Discussed with patient that additional surgery for debridement of non viable tissue will be scheduled Monday or . Will discuss with Dr. Caraballo to determine level of amputation based on improvement in distal perfusion. Patient
understands that procedures may need to be staged and will include amputation of additional toes or more proximal amputation. Given uncontrolled diabetes with peripheral neuropathy and peripheral arterial disease, he is at high risk for limb loss.
DM uncontrolled with peripheral neuropathy
HgbA1c 10.1
RAYMOND on CKD
Subjective
Objective
Temp Pulse Resp BP Pulse Ox
98.2 F 66 18 127/54 95
09/12/23 11:00 09/12/23 11:00 09/12/23 11:00 09/12/23 11:00 09/12/23 11:00
09/12/23 06:47
09/12/23 06:47
Vital Signs and Lab results were reviewed.
Physical Exam
Physical Exam
No pain on palpation medial ankle and arch. Patch of skin necrosis plantar medial. Incision with deep tissue non viable. Adjacent 2,4 metatarsals now visible from surgical site. No malodor noted and minimal drainage. Right 4th toe now dusky
appearance and distal hallux now pale
--- NOTE | 2023-09-12 14:54 | W.PN.NEPH.PH ---
Today's Communication / Plan
-
Follow BMP
Assessment/Plan
-
IMP:
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
HAGMA
RAYMOND with CKD stage 3b baseline cr 1.4-1.7
Transaminitis
Anemia of chronic disease with REGGIE complicated by anemia 2/2 CKD
DM type 2 with circulatory complications
HLD
Nicotine dependency
ASCVD
Hypoalbuminemia
Plan:
A/w right foot gangrene and s/p i&d with 3rd toe amp on 09/04
RAYMOND-cr improving to 1.4 at baseline, non oliguric
KUS with no hydro, normal size kidneys, u pcr 700MG/MG OF CR
holding Farxiga, ACEI and metformin
BP are stable, meds with holding parameters
anemia-follow h/h, fe def, ON IV fe COURSE
renal dose meds, avoid nephrotoxins
monitor mild hyponatremia
replace k
Status post arteriogram on 09/11/2023 with PCI and intravascular lithotripsy
Monitor for contrast nephropathy
d/w pt
-
-
Date of Service: September 12, 2023
CC / HPI / ROS
-
Chief Complaint:
RAYMOND
History of Present Illness:
Cr slightly better at 1.4 today, baseline likely 1.5-1.7
BP stable
no fever
Status post a gram with intervention on 09/11/2023 for right lower extremity critical limb ischemia
Review of Systems:
no cp or sob
nonoliguric
feels well
Labs
-
Labs:
WBC 14.4 10^3/uL (4.8-10.8) H 09/12/23 06:47
RBC 3.00 10^6/uL (4.70-6.10) L 09/12/23 06:47
Hgb 8.4 g/dL (13.0-18.0) L 09/12/23 06:47
Hct 25.2 % (39.0-52.0) L 09/12/23 06:47
Plt Count 386 10^3/uL (130-400) 09/12/23 06:47
Sodium 132 mmol/L (135-145) L 09/12/23 06:47
Potassium 4.2 mmol/L (3.5-5.1) 09/12/23 06:47
Chloride 104 mmol/L (98-107) 09/12/23 06:47
Carbon Dioxide 24 mmol/L (22-30) 09/12/23 06:47
BUN 29 mg/dl (9-20) H 09/12/23 06:47
Creatinine 1.4 mg/dL (0.7-1.3) H 09/12/23 06:47
eGFR 53.40 09/12/23 06:47
Glucose 235 mg/dl (70-99) H 09/12/23 06:47
Calcium 7.6 mg/dl (8.4-10.2) L 09/12/23 06:47
Albumin 2.4 g/dl (3.5-5.0) L 09/12/23 06:47
Physical Exam
-
Vital Signs:
Vital Signs
Temp Pulse Resp BP Pulse Ox
98.2 F 66 18 127/54 95
09/12/23 11:00 09/12/23 11:00 09/12/23 11:00 09/12/23 11:00 09/12/23 11:00
Cardiovascular:: Regular rate and rhythm
Respiratory:: Bilateral: CTA
Lung Excursion:: Normal
Abdomen:: Nontender and Soft
Extremity Edema:: None: Bilateral:
Caraballo Catheter: No
[2023-09-12] MEDS: FERRLECIT 110 MG IV (14:59)
[2023-09-12 15:00] VITALS: BP 147/68
[2023-09-12 17:07] LABS: Glucose - Point of Care 109 mg/dl (70-99)
[2023-09-12] MEDS: NOVOLOG FLEXPEN-MODERATE RESISTANCE SC (17:19)
--- NOTE | 2023-09-12 17:47 | W.PN.ID1 ---
Date of Service
Date of Service: September 12, 2023
Today's Communication
Continue antibiotics.
Assessment / Plan
Right foot gangrene
-S/p I&D and resection of third toe 09/05/2023
Leukocytosis trending down
RAYMOND on CKD
Transaminitis
Elevated ESR and CRP
CAD
HTN
Dyslipidemia
DM type II (uncontrolled; A1c = 10.1)
Nephrolithiasis
Recommendations:
OR cx: MSSA, Strep species
Continue cefazolin / flagyl
Tight glucose control.
Given uncontrolled diabetes along with neuropathy, patient is at high risk for limb loss.
����������������������������������������������������������
Chief Complaint
-: Other (Right foot gangrene)
Subjective / Review of Systems
Review of Systems: No Fever and No Chills
Vital Signs / Physical Exam
Vital Signs
Vital Signs
Temp Pulse Resp BP Pulse Ox
97.8 F 52 18 147/68 96
09/12/23 15:00 09/12/23 15:00 09/12/23 15:00 09/12/23 15:00 09/12/23 15:00
Physical Exam
Constitutional: No Acute Distress, Comfortable, Chronically Ill and Non-toxic
Eyes: Sclera Anicteric
Cardiovascular: S1/S2; Negative S3/S4
Pulmonary: Non Labored
Gastrointestinal: Soft, Non Tender and Non Distended
Wound: Other (right foot dressing dry and intact. No strikethrough. No erythema extending up leg.)
Neurological: Awake and Alert
Psychological: Calm
Objective Data
Lab Data
Lab Results
09/12/23 06:47
09/12/23 06:47
ESR 105 mm/hour (0-20) H 09/09/23 07:02
Estimated Creat Clear 57 ml/min 09/12/23 06:47
Lactic Acid 0.9 mmol/L (0.7-2.0) 09/05/23 11:13
Total Bilirubin 0.2 mg/dl (0.2-1.3) 09/12/23 06:47
AST 32 U/L (17-59) 09/12/23 06:47
ALT 38 U/L (0-50) 09/12/23 06:47
Alkaline Phosphatase 114 U/L (38-126) 09/12/23 06:47
C-Reactive Protein 206.40 mg/L (0.0-10.00) H 09/09/23 07:02
Most recent labs reviewed.
Micro Results:
09/05/23 19:39 Blood Culture - Final
Blood/Venous No Growth - Final Report
09/05/23 19:06 Blood Culture - Final
Blood/Venous No Growth - Final Report
09/05/23 16:09 Wound Culture - Final
Foot - Right S aureus-Methicillin Sensitive
Gram Stain - Final
09/05/23 16:11 Wound Culture - Final
Foot - Right S aureus-Methicillin Sensitive
Streptococcus species
Gram Stain - Final
09/05/23 Unknown Anaerobic Culture - Final
Foot - Right Bacteroides thetaiotaomicrom
Finegoldia magna
09/05/23 Unknown Anaerobic Culture - Final
Foot - Right Bacteroides thetaiotaomicrom
Finegoldia magna
09/04/23 13:03 Blood Culture - Final
Blood/Venous No Growth - Final Report
09/04/23 19:50 MRSA Screen - Final
Nose No Methicillin Resistant Staphylococcus aureus isolated.
Imaging:
09/05/2023 Plain film right foot: There has been interval resection of the right third digit at the level of the distal metatarsal bone. There is plantar soft tissue area which appears to be mainly in the region of the second and third metatarsal
bones. There is also a small amount of air off the posterior and superior margin of the calcaneus, anterior to the distal Achilles tendon, unchanged from earlier radiographs. Please see full dictation for additional detail.
09/05/2023 MRI right lower extremity: Numerous rounded foci of decreased signal intensity within the soft tissues of the distal right foot consistent with foci of soft tissue air. There is also concern for foci of air into the third metatarsal bone
and proximal phalanx of the right third toe. Please see full dictation for additional detail.
[2023-09-12] MEDS: LIPITOR 40 MG PO (21:34)
[2023-09-12] MEDS: LANTUS 0.4 UNITS SC (21:35)
[2023-09-12 21:41] LABS: Glucose - Point of Care 216 mg/dl (70-99)
[2023-09-12] MEDS: NSS IV (22:48)
[2023-09-12 23:55] VITALS: BP 112/59
[2023-09-13] VITALS (11 sets, daily range): BP systolic 120–149; BP diastolic 59–68
[2023-09-13] MEDS: ANCEF 5 IV ×3 (05:12→22:42)
[2023-09-13 05:59] LABS: Glucose - Point of Care 122 mg/dl (70-99)
--- NOTE | 2023-09-13 06:03 | PTCARENOTE ---
pt NPO. washed and chg wipes completed.
[2023-09-13] MEDS: NOVOLOG FLEXPEN-MODERATE RESISTANCE SC ×2 (07:01→19:16)
[2023-09-13 07:23] LABS: % Basophils 0.4 % (0-2); % Eosinophils 2.3 % (0-6); % Immature Granulocytes 0.9 % (0-0.5); % Lymphocytes 8.1 % (20.5-51.1); % Monocytes 7.9 % (1.7-9.3); % Neutrophils 80.4 % (42.2-75.2); Absolute Basophils 0.1 10^3/uL (0-0.2); Absolute Eosinophils 0.3 10^3/uL (0-0.7); Absolute Immature Granulocytes 0.1 10^3/uL (0-0.05); Absolute Lymphocytes 1.1 10^3/uL (1.2-3.4); Absolute Monocytes 1.1 10^3/uL (0.1-0.6); Absolute Neutrophils 10.9 10^3/uL (1.4-6.5); Hematocrit 24.3 % (39.0-52.0); Mean Corp Hgb Conc. 32.9 g/dL (33.0-37.0); Mean Corpuscular Hgb 28.1 pg (27.0-31.0); Mean Corpuscular Volume 85.3 fL (80.0-94.0); Mean Platelet Volume 9.8 fL (7.4-10.4); Nucleated Red Blood Cells % 0 % (-); Platelet Count 446 10^3/uL (130-400); Red Blood Cell Count 2.85 10^6/uL (4.70-6.10); White Blood Cell Count 13.5 10^3/uL (4.8-10.8)
[2023-09-13 07:44] LABS: Blood Urea Nitrogen 29 mg/dl (9-20); Calcium 7.9 mg/dl (8.4-10.2); Carbon Dioxide 23 mmol/L (22-30); Chloride 107 mmol/L (98-107); Estimated Creatinine Clearance 53 ml/min; Glucose 91 mg/dl (70-99); Potassium 3.9 mmol/L (3.5-5.1); Sodium 137 mmol/L (135-145); eGFR 49.16
--- NOTE | 2023-09-13 08:17 | PN.DE.MGMTRT ---
Insulin Management
- -
09/13/2023: Diabetes Management Follow up
Patient admitted with worsening discoloration of Right foot toes due to 3rd toe gangrene and RLE tenosynovitis. MRI noted for gas in the tissues
PMH: ASCVD, HTN, HLD, CKD IIIb, Anemia of chronic disease with REGGIE complicated by anemia 2/2 CKD, Nicotine dependency and T2DM. Was taking Metformin 1000 mg BID and Farxiga 10mg daily prior to admission. A1C 10.1%, Cr 2.6, eGFR 25.41.
States he has had diabetes 10 to 15 years but never tested his glucose. Discussed current A1C and glucose trend, pt made aware that insulin is the only safe option for mgt, with uptrending Cr. Pt was hesitant at first stating that he was hoping he
wouldn't need insulin because he lives on a fixed budget but was agreeable when he learned that insurance will likely cover most of the cost of his insulin especially if he didn't have any issues with coverage of Farxiga.
09/06 Instructed patient on prep and injection technique for pre filled pens with fair return demonstration. Provided home pen needles, nursing to continue reinforcing self inject at all meals. Instructed on action of both Lantus and NovoLog and
injection sites. Verbalized understanding.
Provided Contour next glucose monitor and instructed with good return demonstration.
Pt awake, A/Ox3, Resting in bed, offers no complaints, able to discuss diabetes mgt. States he feels confident with giving himself injections. He is concerned that he does not have a routine set up. Reassured him we would work to have a routine
established as far as doses and times to take injections.
POD #8 s/p I& D of right foot w/amputation of 3rd toe and metatarsal head. POD 2 s/p angiogram with lithotripsy
09/12 Decrease Lantus to 38 units @ HS
Premeal glucose range was 109 to 249 on 09/11, pre dinner glucose 109, meal time novolog held, HS glucose 216. Patient NPO for OR for further debridement/possible further amputation Right foot toes. Will reduce AC novolog to 20 units s/p OR today
and assess tomorrow for needed adjustments.
Diabetes History
- -
Type of Diabetes: 2 requiring insulin
Pre-Admission Diabetes Regimen
09/13/23
06:49
Creatinine 1.5 H
Lab Results
Hemoglobin A1c 10.1 % (4.0-5.6) H 09/05/23 08:10
Insulin Pump Settings
IP Diabetes Regimen
09/12/23 09/12/23 09/12/23
11:51 17:03 21:19
Glucose
POC Glucose 249 H 109 H 216 H
09/13/23 09/13/23
05:56 06:49
Glucose 91
POC Glucose 122 H
Meal type: Lunch
Meal type: Breakfast
Amount consumed: 100%
Amount consumed: 100%
Patient Education
--- NOTE | 2023-09-13 08:40 | W.PN.POD ---
Today's Communication
Today's Communication
To OR this evening for debridement of wound
Assessment / Plan
-
Right LE cellulitis with 3rd toe gangrene
-Gas in plantar soft tissue based on MRI
-Status post I and D right foot with amputation 3rd toe and metatarsal head. Plantar incision extends to mid arch
-Dorsal and plantar incision packed open. No further malodor and cellulitis receding. Exposed deep tissue non viable. No sign of granulation
-Continue IV antibiotic therapy as per ID. WBC now 14.
-Angioplasty yesterday showing completely occluded right PT artery. BK shockwave lithotripsy performed to PT artery extending to tibioperoneal trunk
-To OR this evening for debridement of non viable tissue. Discussed case with Dr. Caraballo. Will perform debridement today and if it is found that there is not adequate viable soft tissue to support TMA closure, BKA will be considered. Patient
understands that procedures may need to be staged and will include amputation of additional toes or more proximal amputation. Given uncontrolled diabetes with peripheral neuropathy and peripheral arterial disease, he is at high risk for limb loss.
DM uncontrolled with peripheral neuropathy
HgbA1c 10.1
RAYMOND on CKD
Subjective
Objective
Temp Pulse Resp BP Pulse Ox
97.9 F 76 18 134/60 95
09/13/23 07:00 09/13/23 07:00 09/13/23 07:00 09/13/23 07:00 09/13/23 07:00
09/13/23 06:49
09/13/23 06:49
Vital Signs and Lab results were reviewed.
[2023-09-13] MEDS: VITAMIN C 1000 MG PO (08:41)
[2023-09-13] MEDS: TOPROL XL 50 MG PO ×2 (08:41→22:42)
[2023-09-13] MEDS: NORVASC 2.5 MG PO (08:41)
[2023-09-13] MEDS: LOW STRENGTH ASPIRIN 81 MG PO (08:41)
[2023-09-13] MEDS: FLAGYL 500 MG PO ×3 (08:41→22:59)
[2023-09-13] MEDS: FARXIGA 10 MG PO (08:41)
--- NOTE | 2023-09-13 11:32 | W.PN.ID1 ---
Date of Service
Date of Service: September 13, 2023
Today's Communication
Continue abx.
Assessment / Plan
Right foot gangrene
-S/p I&D and resection of third toe 09/05/2023
Leukocytosis trending down
RAYMOND on CKD
Transaminitis
Elevated ESR and CRP
CAD
HTN
Dyslipidemia
DM type II (uncontrolled; A1c = 10.1)
Nephrolithiasis
Recommendations:
OR cx: MSSA, Strep species, Bacteroides, Finegoldia
Continue cefazolin / flagyl
For tentative OR debridement later today.
Tight glucose control.
Given uncontrolled diabetes along with neuropathy, patient is at high risk for limb loss.
����������������������������������������������������������
Chief Complaint
-: Other (Right foot gangrene)
Subjective / Review of Systems
Review of Systems: No Fever and No Chills
Vital Signs / Physical Exam
Vital Signs
Vital Signs
Temp Pulse Resp BP Pulse Ox
97.9 F 76 18 134/60 95
09/13/23 07:00 09/13/23 07:00 09/13/23 07:00 09/13/23 07:00 09/13/23 07:00
Physical Exam
Constitutional: No Acute Distress, Comfortable, Chronically Ill and Non-toxic
Eyes: Sclera Anicteric
Cardiovascular: S1/S2; Negative S3/S4
Pulmonary: Non Labored
Gastrointestinal: Soft, Non Tender and Non Distended
Wound: Other (right foot dressing dry and intact. No strikethrough. No erythema extending up leg.)
Neurological: Awake and Alert
Psychological: Calm
Objective Data
Lab Data
Lab Results
09/13/23 06:49
09/13/23 06:49
ESR 105 mm/hour (0-20) H 09/09/23 07:02
Estimated Creat Clear 53 ml/min 09/13/23 06:49
Lactic Acid 0.9 mmol/L (0.7-2.0) 09/05/23 11:13
Total Bilirubin 0.2 mg/dl (0.2-1.3) 09/12/23 06:47
AST 32 U/L (17-59) 09/12/23 06:47
ALT 38 U/L (0-50) 09/12/23 06:47
Alkaline Phosphatase 114 U/L (38-126) 09/12/23 06:47
C-Reactive Protein 206.40 mg/L (0.0-10.00) H 09/09/23 07:02
Most recent labs reviewed.
Micro Results:
09/05/23 19:39 Blood Culture - Final
Blood/Venous No Growth - Final Report
09/05/23 19:06 Blood Culture - Final
Blood/Venous No Growth - Final Report
09/05/23 16:09 Wound Culture - Final
Foot - Right S aureus-Methicillin Sensitive
Gram Stain - Final
09/05/23 16:11 Wound Culture - Final
Foot - Right S aureus-Methicillin Sensitive
Streptococcus species
Gram Stain - Final
09/05/23 Unknown Anaerobic Culture - Final
Foot - Right Bacteroides thetaiotaomicrom
Finegoldia magna
09/05/23 Unknown Anaerobic Culture - Final
Foot - Right Bacteroides thetaiotaomicrom
Finegoldia magna
09/04/23 13:03 Blood Culture - Final
Blood/Venous No Growth - Final Report
09/04/23 19:50 MRSA Screen - Final
Nose No Methicillin Resistant Staphylococcus aureus isolated.
Imaging:
09/05/2023 Plain film right foot: There has been interval resection of the right third digit at the level of the distal metatarsal bone. There is plantar soft tissue area which appears to be mainly in the region of the second and third metatarsal
bones. There is also a small amount of air off the posterior and superior margin of the calcaneus, anterior to the distal Achilles tendon, unchanged from earlier radiographs. Please see full dictation for additional detail.
09/05/2023 MRI right lower extremity: Numerous rounded foci of decreased signal intensity within the soft tissues of the distal right foot consistent with foci of soft tissue air. There is also concern for foci of air into the third metatarsal bone
and proximal phalanx of the right third toe. Please see full dictation for additional detail.
[2023-09-13 11:33] LABS: Glucose - Point of Care 207 mg/dl (70-99)
[2023-09-13] MEDS: NOVOLOG FLEXPEN-MODERATE RESISTANCE 3 UNITS SC (11:36)
--- NOTE | 2023-09-13 11:54 | W.PN.HOSP.TC ---
Today's Communication/Plan
-
OR today
IV abx
trend cr closely
IV iron
Assessment / Plan
Assessment / Plan
73yo M with PMHx of DM, HTN, HLD came with c/o worsening discoloration of R toes. HE was seen by his principal accounts clerk and was sent to ED for possible intervention. Had I&D on 09/05/23 and wound Cx grew S.Aureus. Metabolic acedosis improved. Patient had to
be started on insulin 2/2 poorly controlled blood glucose and casing fluid tender was involved. VascSx panning on angio on 09/11/23
A/P:
#R lower extremity with third toe gangrene
#RLE tenosynovitis
#PAD
MRI with gas in the tissues
Vanco/Zosyn switched to Ancef/flagyl as per ID consult
Bcx NTD
Wound Cx: MSSA and strep
Podiatry to follow: non viable tissue on I&D
Vascular evaluated status post right lower extremity angiogram
nephro following along-elevated Cr.
ESR/CRP to be followed
Discussed with podiatry plan for to re-evaluate the woudn for further debridement. may need amputation
Hig risk of limb loss due to PAD/Uncontrolled diabetes
# Peripheral arterial disease status post angiogram
Status post lithotripsy right lower extremity/angioplasty
Started on aspirin and continue statin
#HAGMA most likely 2/2 infection - resolved
#RAYMOND on CKD stage 3b
#Mild hyponatremia
#Hypokalemia
Nephro consult
Cr at 1.5.
IVF per nephro.
#Transaminitis
#Elevated alk.phos
most likely 2/2 RLE infection
no abd pain
hepatitis C Ab neg
Resolved
#Anemia of chronic disease with REGGIE complicated by anemia 2/2 CKD
treat infection
IV iron course started
Iron PO upon d/c
#DM type 2 with circulatory complications/uncontrolled
on Farxiga
Insulin SS, Accuchecks, DM diet
HgbA1c 10.1% - start Lantus 40u qhs and novolog 30 u AC
DM educator
Counseled patient multiple times about strict glycemic control upon discharge for appropriate wound healing
POC am 122
#HLD
restart statin
#Nicotine dependency
Nicoderm PRN
#ASCVD
cont BB
DVT ppx hep
Full code
Anticipated Discharge: > 48 hours
Subjective/Interval History
-
Date of Service: September 13, 2023
eating breakfast
knows to be NPO afterwards for procedure
Objective Data
-
Labs:
Laboratory Results
09/13/23
06:49
WBC 13.5 H
Hgb 8.0 L
Hct 24.3 L
Plt Count 446 H
Sodium 137
Potassium 3.9
Chloride 107
Carbon Dioxide 23
BUN 29 H
Creatinine 1.5 H
Glucose 91
Calcium 7.9 L
Vital Signs:
Vital Signs
Temp Pulse Resp BP Pulse Ox
97.9 F 76 18 134/60 95
09/13/23 07:00 09/13/23 07:00 09/13/23 07:00 09/13/23 07:00 09/13/23 09:00
I&O
09/12/23 09/13/23 09/14/23
06:59 06:59 06:59
Intake Total 2850 / 2850 1800 / 1800
Output Total 1150 / 1150 2900 / 2900
Balance 1700 / 1700 -1100 / -1100
Physical Exam
-
General: No Apparent Distress and Appears Chronically Ill
Respiratory: Clear to Auscultation
Cardiac: Regular Rhythm and S1/S2
GI: Soft, Nontender, Nondistended and Normal Bowel Sounds
Musculoskeletal: No Clubbing, No Cyanosis and Other (R foot covered in dressing/kiel wrap. warm to touch. )
Neuro: Awake, Alert, Oriented and AO x 3
Psych: Calm
Data Reviewed
-
Total Time Spent with Patient (in minutes): 56
[2023-09-13] MEDS: FERRLECIT 110 MG IV (15:04)
[2023-09-13 18:08] LABS: Glucose - Point of Care 141 mg/dl (70-99)
--- NOTE | 2023-09-13 18:31 | W.PN.UPDATE ---
Update Note
Progress Note Update
Attempted to but Pt in OR now
stable renal function
ok for IVF as needed
will follow tomorrow
--- NOTE | 2023-09-13 18:38 | W.PN.UPDATE ---
Update Note
Progress Note Update
To OR today for debridement infected, non viable tissue right foot including amputation of remaining lesser toes and met heads. Significant improvement in tissue perfusion noted since vascular intervention. Skin necrosis at the plantar medial first
met head debrided as well. Hoping to preserve this area of plantar skin for eventual closure of TMA, therefore hallux and first met head was not removed today. Patient tolerated procedure and anesthesia without complications and returned to
recovery room with vital signs stable and neurovascular status in tact. If skin and soft tissue remain viable, will plan TMA with primary closure.
[2023-09-13 21:30] LABS: Glucose - Point of Care 132 mg/dl (70-99)
[2023-09-13] MEDS: LANTUS 0.38 UNITS SC (22:42)
[2023-09-13] MEDS: ROXICODONE 5 MG PO (22:42)
[2023-09-13] MEDS: LIPITOR 40 MG PO (22:42)
[2023-09-13] MEDS: TYLENOL 500 MG PO (22:42)
[2023-09-14 03:07] VITALS: BP 116/61
[2023-09-14] MEDS: ANCEF 5 IV ×3 (05:39→22:03)
[2023-09-14 07:00] VITALS: BP 131/61
[2023-09-14 07:41] LABS: % Basophils 0.3 % (0-2); % Eosinophils 1.6 % (0-6); % Lymphocytes 7.7 % (20.5-51.1); % Monocytes 8.1 % (1.7-9.3); % Neutrophils 81.3 % (42.2-75.2); Absolute Eosinophils 0.2 10^3/uL (0-0.7); Absolute Immature Granulocytes 0.1 10^3/uL (0-0.05); Absolute Monocytes 1.1 10^3/uL (0.1-0.6); Absolute Neutrophils 10.8 10^3/uL (1.4-6.5); Hematocrit 23.8 % (39.0-52.0); Hemoglobin 7.8 g/dL (13.0-18.0); Mean Corp Hgb Conc. 32.8 g/dL (33.0-37.0); Mean Corpuscular Hgb 28.1 pg (27.0-31.0); Mean Corpuscular Volume 85.6 fL (80.0-94.0); Mean Platelet Volume 9.6 fL (7.4-10.4); Nucleated Red Blood Cells % 0 % (-); Platelet Count 441 10^3/uL (130-400); Red Blood Cell Count 2.78 10^6/uL (4.70-6.10); Red Cell Dist. Width 14.2 % (11.5-14.5); White Blood Cell Count 13.3 10^3/uL (4.8-10.8)
[2023-09-14 07:46] LABS: Glucose - Point of Care 161 mg/dl (70-99)
--- NOTE | 2023-09-14 07:57 | PN.DE.MGMTRT ---
Insulin Management
- -
09/14/2023: Diabetes Management Follow up
Patient admitted with worsening discoloration of Right foot toes due to 3rd toe gangrene and RLE tenosynovitis. MRI noted for gas in the tissues
PMH: ASCVD, HTN, HLD, CKD IIIb, Anemia of chronic disease with REGGIE complicated by anemia 2/2 CKD, Nicotine dependency and T2DM. Was taking Metformin 1000 mg BID and Farxiga 10mg daily prior to admission. A1C 10.1%, Cr 2.6, eGFR 25.41.
States he has had diabetes 10 to 15 years but never tested his glucose. Discussed current A1C and glucose trend, pt made aware that insulin is the only safe option for mgt, with uptrending Cr. Pt was hesitant at first stating that he was hoping he
wouldn't need insulin because he lives on a fixed budget but was agreeable when he learned that insurance will likely cover most of the cost of his insulin especially if he didn't have any issues with coverage of Farxiga.
09/06 Instructed patient on prep and injection technique for pre filled pens with fair return demonstration. Provided home pen needles, nursing to continue reinforcing self inject at all meals. Instructed on action of both Lantus and NovoLog and
injection sites. Verbalized understanding.
Provided Contour next glucose monitor and instructed with good return demonstration.
Pt awake, A/Ox3, Resting in bed, offers no complaints, able to discuss diabetes mgt. States he feels confident with giving himself injections. He is concerned that he does not have a routine set up. Reassured him we would work to have a routine
established as far as doses and times to take injections.
POD #9 s/p I& D of right foot w/amputation of 3rd toe and metatarsal head. POD 3 s/p angiogram with lithotripsy; POD 1 further debridement right foot.
09/12 Decrease Lantus to 38 units @ HS, fasting glucose 09/13 161. Will resume 40 units lantus @ HS.
Premeal glucose range was 122 to 207 on 09/12, NPO most of day for OR. Will resume novolog AC 25 units with moderate corrective.
Discussed medication regimen with patients nurse.
Diabetes History
- -
Type of Diabetes: 2 requiring insulin
Pre-Admission Diabetes Regimen
Lab Results
Hemoglobin A1c 10.1 % (4.0-5.6) H 09/05/23 08:10
Insulin Pump Settings
IP Diabetes Regimen
09/13/23 09/13/23 09/13/23
11:32 18:06 21:27
POC Glucose 207 H 141 H 132 H
09/14/23
07:44
POC Glucose 161 H
Meal type: Breakfast
Amount consumed: 100%
Patient Education
[2023-09-14 08:20] LABS: Blood Urea Nitrogen 23 mg/dl (9-20); Calcium 7.9 mg/dl (8.4-10.2); Carbon Dioxide 24 mmol/L (22-30); Chloride 105 mmol/L (98-107); Estimated Creatinine Clearance 57 ml/min; Glucose 134 mg/dl (70-99); Potassium 4.1 mmol/L (3.5-5.1); Sodium 136 mmol/L (135-145)
[2023-09-14] MEDS: NOVOLOG FLEXPEN-MODERATE RESISTANCE 1 UNITS SC (08:22)
[2023-09-14] MEDS: NOVOLOG FLEXPEN 25 UNITS SC ×3 (08:23→17:34)
[2023-09-14] MEDS: TOPROL XL 50 MG PO ×2 (08:26→20:20)
[2023-09-14] MEDS: LOW STRENGTH ASPIRIN 81 MG PO (08:26)
[2023-09-14] MEDS: VITAMIN C 1000 MG PO (08:26)
[2023-09-14] MEDS: FARXIGA 10 MG PO (08:27)
[2023-09-14] MEDS: NORVASC 2.5 MG PO (08:27)
[2023-09-14] MEDS: FLAGYL 500 MG PO ×3 (08:27→23:31)
[2023-09-14 11:00] VITALS: BP 136/54
[2023-09-14 11:41] LABS: Glucose - Point of Care 91 mg/dl (70-99)
--- NOTE | 2023-09-14 11:49 | W.PN.HOSP.TC ---
Today's Communication/Plan
-
Podiatry recs
IV abx
monitor POC
Assessment / Plan
Assessment / Plan
General: No Apparent Distress and Appears Chronically Ill
Respiratory: Clear to Auscultation
Cardiac: Regular Rhythm and S1/S2
GI: Soft, Nontender, Nondistended and Normal Bowel Sounds
Musculoskeletal: No Clubbing, No Cyanosis and Other (R foot covered in dressing/kiel wrap. warm to touch. )
Neuro: Awake, Alert, Oriented and AO x 3
Psych: Calm
73yo M with PMHx of DM, HTN, HLD came with c/o worsening discoloration of R toes. HE was seen by his swimming teacher and was sent to ED for possible intervention. Had I&D on 09/05/23 and wound Cx grew S.Aureus. Metabolic acedosis improved. Patient had to
be started on insulin 2/2 poorly controlled blood glucose and bladder tier was involved. VascSx panning on angio on 09/11/23
A/P:
#R lower extremity with third toe gangrene
#RLE tenosynovitis
#PAD
MRI with gas in the tissues
Vanco/Zosyn switched to Ancef/flagyl as per ID consult
Bcx NTD
Wound Cx: MSSA and strep
Podiatry to follow: non viable tissue on I&D
Vascular evaluated status post right lower extremity angiogram
nephro following along-elevated Cr.
Status post ORIF on 09/12 by podiatry with debridement of the infected nonviable tissue. Significant improvement tissue perfusion was noted. Will await further podiatry recs for next stop if further trip to OR planned or not.
Hig risk of limb loss due to PAD/Uncontrolled diabetes
# Peripheral arterial disease status post angiogram
Status post lithotripsy right lower extremity/angioplasty
Started on aspirin and continue statin
#HAGMA most likely 2/2 infection - resolved
#RAYMOND on CKD stage 3b
#Mild hyponatremia
#Hypokalemia
Nephro consult
Cr at 1.4.
IVF per nephro.
#Transaminitis
#Elevated alk.phos
most likely 2/2 RLE infection
no abd pain
hepatitis C Ab neg
Resolved
#Anemia of chronic disease with REGGIE complicated by anemia 2/2 CKD
treat infection
IV iron course started
Iron PO upon d/c
#DM type 2 with circulatory complications/uncontrolled
on Farxiga
Insulin SS, Accuchecks, DM diet
HgbA1c 10.1% - start Lantus 40u qhs and novolog 25 u AC
DM educator
Counseled patient multiple times about strict glycemic control upon discharge for appropriate wound healing
POC am 161
#HLD
restart statin
#Nicotine dependency
Nicoderm PRN
#ASCVD
cont BB
DVT ppx hep
Full code
d/w with spouse at bedside in details
Anticipated Discharge: > 48 hours
Subjective/Interval History
-
Date of Service: September 14, 2023
denies R foot pain
Objective Data
-
Labs:
Laboratory Results
09/14/23
07:00
WBC 13.3 H
Hgb 7.8 L
Hct 23.8 L
Plt Count 441 H
Sodium 136
Potassium 4.1
Chloride 105
Carbon Dioxide 24
BUN 23 H
Creatinine 1.4 H
Glucose 134 H
Calcium 7.9 L
Vital Signs:
Vital Signs
Temp Pulse Resp BP Pulse Ox
98.3 F 80 16 136/54 96
09/14/23 11:00 09/14/23 11:00 09/14/23 11:00 09/14/23 11:00 09/14/23 11:00
I&O
09/13/23 09/14/23 09/15/23
06:59 06:59 06:59
Intake Total 1800 / 1800 220 / 220
Output Total 2900 / 2900 1200 / 1200
Balance -1100 / -1100 -980 / -980
--- NOTE | 2023-09-14 12:34 | CM ---
Patient seen asleep bedside, CM reviewed chart. Patient remains on IV antibiotics. CM will continue to follow for all discharge planning needs.
Plan; home no needs, watch for VN/Wound care needs.
--- NOTE | 2023-09-14 12:34 | W.PN.POD ---
Today's Communication
Today's Communication
Looking for improvement in appearance of soft tissue at surgical site after vascular intervention and recent debridement. Should be apparent with dressing change tomorrow and if no improvement, will suggest BKA
Assessment / Plan
-
Right LE cellulitis with 3rd toe gangrene
-Gas in plantar soft tissue based on MRI
-Status post I and D right foot with amputation 3rd toe and metatarsal head. Plantar incision extends to mid arch
-Dorsal and plantar incision packed open. No further malodor and cellulitis receding. Exposed deep tissue non viable. No sign of granulation
-Continue IV antibiotic therapy as per ID. WBC now 14.
-Angioplasty yesterday showing completely occluded right PT artery. BK shockwave lithotripsy performed to PT artery extending to tibioperoneal trunk
-OR last evening for removal of remaining devitalized tissue, including remaining lesser toes and metatarsal heads,and hallux left in tact. Debridement also performed of non viable patch of skin at the medial hallux/first met to see if the area
would granulate and possibly serve as a skin flap. Today with packing removal, perfusion of soft tissue at the plantar flap and medial first metatarsal has not improved and appears with dusky color. Patient understands that in order to consider
proximal TMA, significant improvement in soft tissue perfusion is needed. Will check tomorrow and if soft tissue appearance does not improve, BKA will be recommended. Given uncontrolled diabetes with peripheral neuropathy and peripheral arterial
disease, he is at high risk for limb loss.
DM uncontrolled with peripheral neuropathy
HgbA1c 10.1
RAYMOND on CKD
Subjective
Objective
Temp Pulse Resp BP Pulse Ox
98.3 F 80 16 136/54 96
09/14/23 11:00 09/14/23 11:00 09/14/23 11:00 09/14/23 11:00 09/14/23 12:10
09/14/23 07:00
09/14/23 07:00
Vital Signs and Lab results were reviewed.
Physical Exam
Physical Exam
Bloody discharge noted on gauze and packing, but plantar soft tissue flap with minimal bleeding. No malodor or drainage present and area of skin debridement medial hallux now dry and avascular. Hallux with pale appearance
[2023-09-14] MEDS: NOVOLOG FLEXPEN-MODERATE RESISTANCE SC ×2 (13:11→17:30)
[2023-09-14] MEDS: FERRLECIT 110 MG IV (13:39)
[2023-09-14 15:00] VITALS: BP 125/57
--- NOTE | 2023-09-14 16:15 | W.PN.NEPH.PH ---
Today's Communication / Plan
-
- Cr and Na stable/improved
Assessment/Plan
-
IMP:
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
HAGMA
RAYMOND with CKD stage 3b baseline cr 1.4-1.7
Transaminitis
Anemia of chronic disease with REGGIE complicated by anemia 2/2 CKD
DM type 2 with circulatory complications
HLD
Nicotine dependency
ASCVD
Hypoalbuminemia
Plan:
A/w right foot gangrene and s/p i&d with 3rd toe amp on 09/04
RAYMOND-cr improving to 1.4 at baseline, non oliguric
KUS with no hydro, normal size kidneys, u pcr 700MG/MG OF CR
holding Farxiga, ACEI and metformin
BP are stable, meds with holding parameters
anemia-follow h/h, fe def, ON IV fe COURSE
renal dose meds, avoid nephrotoxins
hyponatremia resolved
replace k
Status post arteriogram on 09/11/2023 with PCI and intravascular lithotripsy
Monitor for contrast nephropathy
d/w pt
-
-
Date of Service: September 14, 2023
CC / HPI / ROS
-
Chief Complaint:
RAYMOND
History of Present Illness:
Cr slightly better at 1.4 today, baseline likely 1.5-1.7
BP stable
no fever
Status post a gram with intervention on 09/11/2023 for right lower extremity critical limb ischemia
Review of Systems:
no cp or sob
nonoliguric
feels well
Labs
-
Labs:
WBC 13.3 10^3/uL (4.8-10.8) H 09/14/23 07:00
RBC 2.78 10^6/uL (4.70-6.10) L 09/14/23 07:00
Hgb 7.8 g/dL (13.0-18.0) L 09/14/23 07:00
Hct 23.8 % (39.0-52.0) L 09/14/23 07:00
Plt Count 441 10^3/uL (130-400) H 09/14/23 07:00
Sodium 136 mmol/L (135-145) 09/14/23 07:00
Potassium 4.1 mmol/L (3.5-5.1) 09/14/23 07:00
Chloride 105 mmol/L (98-107) 09/14/23 07:00
Carbon Dioxide 24 mmol/L (22-30) 09/14/23 07:00
BUN 23 mg/dl (9-20) H 09/14/23 07:00
Creatinine 1.4 mg/dL (0.7-1.3) H 09/14/23 07:00
eGFR 53.40 09/14/23 07:00
Glucose 134 mg/dl (70-99) H 09/14/23 07:00
Calcium 7.9 mg/dl (8.4-10.2) L 09/14/23 07:00
Albumin 2.4 g/dl (3.5-5.0) L 09/12/23 06:47
Physical Exam
-
Vital Signs:
Vital Signs
Temp Pulse Resp BP Pulse Ox
97.7 F 79 16 125/57 93
09/14/23 15:00 09/14/23 15:00 09/14/23 15:00 09/14/23 15:00 09/14/23 15:00
Cardiovascular:: Regular rate and rhythm
Respiratory:: Bilateral: CTA
Lung Excursion:: Normal
Abdomen:: Nontender and Soft
Bowel Sounds:: Normal
Extremity Edema:: None: Right: (wrapped) and None: Left:
Caraballo Catheter: No
[2023-09-14 16:56] LABS: Glucose - Point of Care 81 mg/dl (70-99)
[2023-09-14 19:53] VITALS: BP 127/61
[2023-09-14 21:30] LABS: Glucose - Point of Care 114 mg/dl (70-99)
[2023-09-14] MEDS: LIPITOR 40 MG PO (22:03)
[2023-09-14] MEDS: LANTUS 0.4 UNITS SC (23:02)
[2023-09-14 23:15] VITALS: BP 156/73
[2023-09-15 03:12] LABS: Glucose - Point of Care 101 mg/dl (70-99)
[2023-09-15] MEDS: ANCEF 5 IV (05:35)
[2023-09-15 07:00] VITALS: BP 139/66
--- NOTE | 2023-09-15 07:18 | PN.DE.MGMTRT ---
Insulin Management
- -
09/15/2023: Diabetes Management Follow up
Patient admitted with worsening discoloration of Right foot toes due to 3rd toe gangrene and RLE tenosynovitis. MRI noted for gas in the tissues
PMH: ASCVD, HTN, HLD, CKD IIIb, Anemia of chronic disease with REGGIE complicated by anemia 2/2 CKD, Nicotine dependency and T2DM. Was taking Metformin 1000 mg BID and Farxiga 10mg daily prior to admission. A1C 10.1%, Cr 2.6, eGFR 25.41.
States he has had diabetes 10 to 15 years but never tested his glucose. Discussed current A1C and glucose trend, pt made aware that insulin is the only safe option for mgt, with uptrending Cr. Pt was hesitant at first stating that he was hoping he
wouldn't need insulin because he lives on a fixed budget but was agreeable when he learned that insurance will likely cover most of the cost of his insulin especially if he didn't have any issues with coverage of Farxiga.
09/06 Instructed patient on prep and injection technique for pre filled pens with fair return demonstration. Provided home pen needles, nursing to continue reinforcing self inject at all meals. Instructed on action of both Lantus and NovoLog and
injection sites. Verbalized understanding.
Provided Contour next glucose monitor and instructed with good return demonstration.
Pt awake, A/Ox3, Resting in bed, offers no complaints, able to discuss diabetes mgt. States he feels confident with giving himself injections. Reassured him we would work to have a routine established as far as doses and times to take injections.
POD #10 s/p I& D of right foot w/amputation of 3rd toe and metatarsal head. POD 4 s/p angiogram with lithotripsy; POD 2 further debridement right foot.
Glucose stable 81 to 161. Pre lunch and dinner 81 and 91, required no corrective insulin. Will continue Farxiga 10 mg daily, 40 lantus @ HS with 25 novolog breakfast and dinner. Will decrease lunch novolog to 23 units to prevent possibility of
hypoglycemia.
Diabetes History
- -
Type of Diabetes: 2 requiring insulin
Pre-Admission Diabetes Regimen
09/14/23
07:00
Creatinine 1.4 H
Lab Results
Hemoglobin A1c 10.1 % (4.0-5.6) H 09/05/23 08:10
Insulin Pump Settings
IP Diabetes Regimen
09/14/23 09/14/23 09/14/23
07:00 07:44 11:39
Glucose 134 H
POC Glucose 161 H 91
09/14/23 09/14/23 09/15/23
16:54 21:19 03:10
Glucose
POC Glucose 81 114 H 101 H
Meal type: Dinner
Meal type: Lunch
Meal type: Breakfast
Amount consumed: 100%
Amount consumed: 100%
Amount consumed: 50%
Patient Education
[2023-09-15 08:06] LABS: % Basophils 0.3 % (0-2); % Eosinophils 0.4 % (0-6); % Immature Granulocytes 0.8 % (0-0.5); % Lymphocytes 8.8 % (20.5-51.1); % Monocytes 6.4 % (1.7-9.3); % Neutrophils 83.3 % (42.2-75.2); Absolute Basophils 0.1 10^3/uL (0-0.2); Absolute Eosinophils 0.1 10^3/uL (0-0.7); Absolute Immature Granulocytes 0.1 10^3/uL (0-0.05); Absolute Lymphocytes 1.4 10^3/uL (1.2-3.4); Absolute Neutrophils 13.2 10^3/uL (1.4-6.5); Hematocrit 25.8 % (39.0-52.0); Hemoglobin 8.6 g/dL (13.0-18.0); Mean Corp Hgb Conc. 33.3 g/dL (33.0-37.0); Mean Corpuscular Hgb 29.1 pg (27.0-31.0); Mean Corpuscular Volume 87.2 fL (80.0-94.0); Mean Platelet Volume 9.5 fL (7.4-10.4); Nucleated Red Blood Cells % 0 % (-); Platelet Count 488 10^3/uL (130-400); Red Blood Cell Count 2.96 10^6/uL (4.70-6.10); Red Cell Dist. Width 14.2 % (11.5-14.5); White Blood Cell Count 15.9 10^3/uL (4.8-10.8)
--- NOTE | 2023-09-15 08:11 | W.PN.POD ---
Today's Communication
Today's Communication
Await vascular surgery input regarding further intervention to increase distal arterial perfusion
Assessment / Plan
-
Right LE cellulitis with 3rd toe gangrene
-Gas in plantar soft tissue based on MRI and amputation of right 3rd toe, met head performed 09/04
-09/09 Angioplasty showed completely occluded right PT artery. BK shockwave lithotripsy performed to PT artery extending to tibioperoneal trunk
-09/12 2nd debridement of remaining devitalized tissue, including remaining lesser toes and metatarsal heads. hallux left in tact. Area of soft tissue debridement at medial first MTPJ now dry and non viable. Some improvement to perfusion noted in
dorsal soft tissue but minimal improvement to plantar soft tissue. Defer to vascular surgery for any further intervention possible to improve distal perfusion. Patient understands that in order to consider proximal TMA, significant improvement in
soft tissue perfusion is needed. Given uncontrolled diabetes with peripheral neuropathy and peripheral arterial disease, he is at high risk for limb loss.
DM uncontrolled with peripheral neuropathy
HgbA1c 10.1
Subjective
Objective
Temp Pulse Resp BP Pulse Ox
98.5 F 80 18 156/73 95
09/14/23 23:15 09/14/23 23:15 09/14/23 23:15 09/14/23 23:15 09/14/23 23:15
09/15/23 07:20
Vital Signs and Lab results were reviewed.
Physical Exam
Physical Exam
No malodor and no purulence noted. Dorsal skin flap with increased perfusion noted, but plantar flap with little to no improvement. 2x4 cm circular area of skin necrosis at the plantar medial foot over the first metatarsal head now nonviable and
dry.
[2023-09-15 08:13] LABS: Glucose - Point of Care 97 mg/dl (70-99)
[2023-09-15 08:33] LABS: Blood Urea Nitrogen 18 mg/dl (9-20); Carbon Dioxide 25 mmol/L (22-30); Chloride 103 mmol/L (98-107); Estimated Creatinine Clearance 61 ml/min; Glucose 78 mg/dl (70-99); Sodium 136 mmol/L (135-145); eGFR 58.37
[2023-09-15] MEDS: NORVASC 2.5 MG PO (09:34)
[2023-09-15] MEDS: LOW STRENGTH ASPIRIN 81 MG PO (09:34)
[2023-09-15] MEDS: FLAGYL 500 MG PO (09:34)
[2023-09-15] MEDS: TOPROL XL 50 MG PO ×2 (09:35→19:39)
[2023-09-15] MEDS: FARXIGA 10 MG PO (09:35)
[2023-09-15] MEDS: VITAMIN C 1000 MG PO (09:35)
[2023-09-15] MEDS: NOVOLOG FLEXPEN-MODERATE RESISTANCE SC ×2 (09:35→17:40)
[2023-09-15] MEDS: NOVOLOG FLEXPEN 25 UNITS SC ×2 (09:36→17:40)
[2023-09-15] MEDS: TYLENOL 500 MG PO ×2 (09:41→16:03)
--- NOTE | 2023-09-15 11:15 | W.PN.HOSP.TC ---
Today's Communication/Plan
-
Await vascular recs
IV Unasyn
POC monitor
insulin regimen adjusted
Assessment / Plan
Assessment / Plan
General: No Apparent Distress and Appears Chronically Ill
Respiratory: Clear to Auscultation
Cardiac: Regular Rhythm and S1/S2
GI: Soft, Nontender, Nondistended and Normal Bowel Sounds
Musculoskeletal: No Clubbing, No Cyanosis and Other (R foot covered in dressing/kiel wrap. warm to touch. )
Neuro: Awake, Alert, Oriented and AO x 3
Psych: Calm
73yo M with PMHx of DM, HTN, HLD came with c/o worsening discoloration of R toes. HE was seen by his splitting machine feeder and was sent to ED for possible intervention. Had I&D on 09/05/23 and wound Cx grew S.Aureus. Metabolic acedosis improved. Patient had to
be started on insulin 2/2 poorly controlled blood glucose and life educator was involved. VascSx panning on angio on 09/11/23
A/P:
#R lower extremity with third toe gangrene
#RLE tenosynovitis
#PAD
MRI with gas in the tissues
Vanco/Zosyn switched to Ancef/flagyl which has now been transitioned to Unasyn 3 g every 6
Bcx NTD
Wound Cx: MSSA and strep
Podiatry to follow: non viable tissue on I&D
Vascular evaluated status post right lower extremity angiogram
nephro following along-elevated Cr.
Status post ORIF on 09/12 by podiatry with debridement of the infected nonviable tissue. Significant improvement tissue perfusion was noted.
Podiatry correspondence noted-not much improvement in plantar soft tissue. Awaiting for further vascular surgery recommendation.
Hig risk of limb loss due to PAD/Uncontrolled diabetes
# Peripheral arterial disease status post angiogram
Status post lithotripsy right lower extremity/angioplasty
Started on aspirin and continue statin
#HAGMA most likely 2/2 infection - resolved
#RAYMOND on CKD stage 3b
#Mild hyponatremia
#Hypokalemia
Nephro consult
Monitor closely for contrast nephropathy.
Continue to hold metformin, lisinopril
Tolerating appropriate p.o. intake. Can hold off IV fluids.
#Transaminitis
#Elevated alk.phos
most likely 2/2 RLE infection
no abd pain
hepatitis C Ab neg
Resolved
#Anemia of chronic disease with REGGIE complicated by anemia 2/2 CKD
treat infection
IV iron course started
Iron PO upon d/c
#DM type 2 with circulatory complications/uncontrolled
on Farga
Insulin SS, Accuchecks, DM diet
HgbA1c 10.1% - start Lantus 40u qhs and NovoLog 23 units lunch and NovoLog 25 units for breakfast denies
DM educator
Counseled patient multiple times about strict glycemic control upon discharge for appropriate wound healing
POC am 97
#HLD
restart statin
#Nicotine dependency
Nicoderm PRN
#ASCVD
cont BB
DVT ppx hep
Full code
d/w with spouse at bedside in details on 09/13
Anticipated Discharge: > 48 hours
Subjective/Interval History
-
Date of Service: September 15, 2023
no R foot pain
Objective Data
-
Labs:
Laboratory Results
09/15/23
07:20
WBC 15.9 H
Hgb 8.6 L
Hct 25.8 L
Plt Count 488 H
Sodium 136
Potassium 4.0
Chloride 103
Carbon Dioxide 25
BUN 18
Creatinine 1.3
Glucose 78
Calcium 8.0 L
Vital Signs:
Vital Signs
Temp Pulse Resp BP Pulse Ox
98.7 F 77 18 139/66 94
09/15/23 07:00 09/15/23 07:00 09/15/23 07:00 09/15/23 07:00 09/15/23 07:00
I&O
09/14/23 09/15/23 09/16/23
06:59 06:59 06:59
Intake Total 220 / 220 2100 / 2100
Output Total 1200 / 1200 2600 / 2600
Balance -980 / -980 -500 / -500
[2023-09-15 11:38] LABS: Glucose - Point of Care 160 mg/dl (70-99)
--- NOTE | 2023-09-15 12:28 | CM ---
Patient seen bedside, offered home health to patient, patient unsure at this time, would like to discuss closer to discharge. CM will continue to follow for discharge planning needs.
Plan; home with VN likely.
[2023-09-15] MEDS: UNASYN IV ×3 (12:45→23:06)
[2023-09-15] MEDS: NOVOLOG FLEXPEN 23 UNITS SC (12:47)
[2023-09-15] MEDS: NOVOLOG FLEXPEN-MODERATE RESISTANCE 1 UNITS SC (12:47)
--- NOTE | 2023-09-15 12:57 | W.PN.ID1 ---
Date of Service
Date of Service: September 15, 2023
Today's Communication
Continue antibiotics.
Assessment / Plan
Right foot gangrene
-S/p I&D and resection of third toe 09/05/2023
- s/p revision 09/12
Leukocytosis trending down
RAYMOND on CKD
Transaminitis
Elevated ESR and CRP
CAD
HTN
Dyslipidemia
DM type II (uncontrolled; A1c = 10.1)
Nephrolithiasis
Recommendations:
OR cx: MSSA, Strep species, Bacteroides, Finegoldia
Ongoing leukocytosis noted. Will consolidate to Unasyn.
Tight glucose control.
Given uncontrolled diabetes along with neuropathy, patient is at high risk for limb loss.
����������������������������������������������������������
Chief Complaint
-: Other (Right foot gangrene)
Subjective / Review of Systems
Review of Systems: No Fever and No Chills
Vital Signs / Physical Exam
Vital Signs
Vital Signs
Temp Pulse Resp BP Pulse Ox
98.7 F 77 18 139/66 94
09/15/23 07:00 09/15/23 07:00 09/15/23 07:00 09/15/23 07:00 09/15/23 07:00
Physical Exam
Constitutional: No Acute Distress, Comfortable, Chronically Ill and Non-toxic
Eyes: Sclera Anicteric
Cardiovascular: S1/S2; Negative S3/S4
Pulmonary: Non Labored
Gastrointestinal: Soft, Non Tender and Non Distended
Wound: Other (right foot dressing dry and intact. No strikethrough. No erythema extending up leg.)
Neurological: Awake and Alert
Psychological: Calm
Objective Data
Lab Data
Lab Results
09/15/23 07:20
09/15/23 07:20
ESR 105 mm/hour (0-20) H 09/09/23 07:02
Estimated Creat Clear 61 ml/min 09/15/23 07:20
Lactic Acid 0.9 mmol/L (0.7-2.0) 09/05/23 11:13
Total Bilirubin 0.2 mg/dl (0.2-1.3) 09/12/23 06:47
AST 32 U/L (17-59) 09/12/23 06:47
ALT 38 U/L (0-50) 09/12/23 06:47
Alkaline Phosphatase 114 U/L (38-126) 09/12/23 06:47
C-Reactive Protein 206.40 mg/L (0.0-10.00) H 09/09/23 07:02
Most recent labs reviewed.
Micro Results:
09/05/23 19:39 Blood Culture - Final
Blood/Venous No Growth - Final Report
09/05/23 19:06 Blood Culture - Final
Blood/Venous No Growth - Final Report
09/05/23 16:09 Wound Culture - Final
Foot - Right S aureus-Methicillin Sensitive
Gram Stain - Final
09/05/23 16:11 Wound Culture - Final
Foot - Right S aureus-Methicillin Sensitive
Streptococcus species
Gram Stain - Final
09/05/23 Unknown Anaerobic Culture - Final
Foot - Right Bacteroides thetaiotaomicrom
Finegoldia magna
09/05/23 Unknown Anaerobic Culture - Final
Foot - Right Bacteroides thetaiotaomicrom
Finegoldia magna
09/04/23 13:03 Blood Culture - Final
Blood/Venous No Growth - Final Report
09/04/23 19:50 MRSA Screen - Final
Nose No Methicillin Resistant Staphylococcus aureus isolated.
Imaging:
09/05/2023 Plain film right foot: There has been interval resection of the right third digit at the level of the distal metatarsal bone. There is plantar soft tissue area which appears to be mainly in the region of the second and third metatarsal
bones. There is also a small amount of air off the posterior and superior margin of the calcaneus, anterior to the distal Achilles tendon, unchanged from earlier radiographs. Please see full dictation for additional detail.
09/05/2023 MRI right lower extremity: Numerous rounded foci of decreased signal intensity within the soft tissues of the distal right foot consistent with foci of soft tissue air. There is also concern for foci of air into the third metatarsal bone
and proximal phalanx of the right third toe. Please see full dictation for additional detail.
--- NOTE | 2023-09-15 13:47 | W.PN.NEPH.PH ---
Today's Communication / Plan
-
Sign off
Okay to add back ROSALBA inhibitor at discharge
Assessment/Plan
-
IMP:
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
HAGMA
RAYMOND with CKD stage 3b baseline cr 1.4-1.7
Transaminitis
Anemia of chronic disease with REGGIE complicated by anemia 2/2 CKD
DM type 2 with circulatory complications
HLD
Nicotine dependency
ASCVD
Hypoalbuminemia
Plan:
A/w right foot gangrene and s/p i&d with 3rd toe amp on 09/04
RAYMOND-cr improving to 1.3 at baseline, non oliguric
KUS with no hydro, normal size kidneys, u pcr 700MG/MG OF CR
holding Farxiga, ACEI and metformin
BP are stable, meds with holding parameters
anemia-follow h/h, fe def, ON IV fe COURSE
renal dose meds, avoid nephrotoxins
hyponatremia resolved
replace k
Status post arteriogram on 09/11/2023 with PCI and intravascular lithotripsy
We will sign off
-
-
Date of Service: September 15, 2023
CC / HPI / ROS
-
Chief Complaint:
RAYMOND
History of Present Illness:
Cr slightly better at 1. today, baseline likely 1.5-1.7
BP stable
no fever
Status post a gram with intervention on 09/11/2023 for right lower extremity critical limb ischemia
Review of Systems:
no cp or sob
nonoliguric
feels well
Labs
-
Labs:
WBC 15.9 10^3/uL (4.8-10.8) H 09/15/23 07:20
RBC 2.96 10^6/uL (4.70-6.10) L 09/15/23 07:20
Hgb 8.6 g/dL (13.0-18.0) L 09/15/23 07:20
Hct 25.8 % (39.0-52.0) L 09/15/23 07:20
Plt Count 488 10^3/uL (130-400) H 09/15/23 07:20
Sodium 136 mmol/L (135-145) 09/15/23 07:20
Potassium 4.0 mmol/L (3.5-5.1) 09/15/23 07:20
Chloride 103 mmol/L (98-107) 09/15/23 07:20
Carbon Dioxide 25 mmol/L (22-30) 09/15/23 07:20
BUN 18 mg/dl (9-20) 09/15/23 07:20
Creatinine 1.3 mg/dL (0.7-1.3) 09/15/23 07:20
eGFR 58.37 09/15/23 07:20
Glucose 78 mg/dl (70-99) 09/15/23 07:20
Calcium 8.0 mg/dl (8.4-10.2) L 09/15/23 07:20
Albumin 2.4 g/dl (3.5-5.0) L 09/12/23 06:47
Physical Exam
-
Vital Signs:
Vital Signs
Temp Pulse Resp BP Pulse Ox
98.7 F 77 18 139/66 94
09/15/23 07:00 09/15/23 07:00 09/15/23 07:00 09/15/23 07:00 09/15/23 07:00
Cardiovascular:: Regular rate and rhythm
Respiratory:: Bilateral: CTA
Lung Excursion:: Normal
Abdomen:: Nontender and Soft
Bowel Sounds:: Normal
Extremity Edema:: None: Right: (wrapped) and None: Left:
Caraballo Catheter: No
[2023-09-15 15:00] VITALS: BP 120/64
[2023-09-15 16:47] LABS: Glucose - Point of Care 96 mg/dl (70-99)
--- NOTE | 2023-09-15 17:05 | W.PN.UPDATE ---
Update Note
Progress Note Update
Requested to reevaluate by corporate controller Dr. Ojeda to reevaluate if further intervention can improve distal perfusion to heal wound. Dr. Caraballo met with patient in room and explained risk first benefits of proceeding with repeat arteriogram to
evaluate if PT to tibioperoneal trunk remains open following shockwave intervention done earlier this week, to evaluate if further endovascular intervention can be offered, and taking diagnostic information to evaluate if arterial bypass could be
performed if required in the future. Patient understood risk for his benefits and is agreeable to proceed, we will tentatively plan for arteriogram on Monday 09/18.
[2023-09-15] MEDS: HEPARIN 5000 UNITS SC (19:38)
[2023-09-15 19:45] LABS: Glucose - Point of Care 78 mg/dl (70-99)
[2023-09-15 21:17] LABS: Glucose - Point of Care 144 mg/dl (70-99)
[2023-09-15] MEDS: LANTUS 0.4 UNITS SC (21:27)
[2023-09-15] MEDS: LIPITOR 40 MG PO (21:27)
[2023-09-15 23:05] VITALS: BP 139/59
[2023-09-16] MEDS: UNASYN IV ×4 (05:14→23:40)
[2023-09-16 07:00] VITALS: BP 134/64
[2023-09-16 07:10] LABS: Glucose - Point of Care 129 mg/dl (70-99)
[2023-09-16 08:12] LABS: % Basophils 0.3 % (0-2); % Eosinophils 1.8 % (0-6); % Immature Granulocytes 0.8 % (0-0.5); % Lymphocytes 9.5 % (20.5-51.1); % Monocytes 7.7 % (1.7-9.3); % Neutrophils 79.9 % (42.2-75.2); Absolute Eosinophils 0.2 10^3/uL (0-0.7); Absolute Immature Granulocytes 0.1 10^3/uL (0-0.05); Absolute Lymphocytes 1.2 10^3/uL (1.2-3.4); Absolute Monocytes 0.9 10^3/uL (0.1-0.6); Absolute Neutrophils 9.7 10^3/uL (1.4-6.5); Hemoglobin 7.9 g/dL (13.0-18.0); Mean Corp Hgb Conc. 32.9 g/dL (33.0-37.0); Mean Corpuscular Hgb 28.9 pg (27.0-31.0); Mean Corpuscular Volume 87.9 fL (80.0-94.0); Mean Platelet Volume 9.8 fL (7.4-10.4); Nucleated Red Blood Cells % 0 % (-); Platelet Count 465 10^3/uL (130-400); Red Blood Cell Count 2.73 10^6/uL (4.70-6.10); Red Cell Dist. Width 14.4 % (11.5-14.5); White Blood Cell Count 12.1 10^3/uL (4.8-10.8)
[2023-09-16 08:31] LABS: Blood Urea Nitrogen 18 mg/dl (9-20); Calcium 7.7 mg/dl (8.4-10.2); Carbon Dioxide 26 mmol/L (22-30); Chloride 101 mmol/L (98-107); Estimated Creatinine Clearance 61 ml/min; Glucose 93 mg/dl (70-99); Potassium 4.3 mmol/L (3.5-5.1); Sodium 134 mmol/L (135-145); eGFR 58.37
[2023-09-16] MEDS: VITAMIN C 1000 MG PO (09:38)
[2023-09-16] MEDS: LOW STRENGTH ASPIRIN 81 MG PO (09:38)
[2023-09-16] MEDS: TOPROL XL 50 MG PO ×2 (09:38→20:43)
[2023-09-16] MEDS: NORVASC 2.5 MG PO (09:38)
[2023-09-16] MEDS: HEPARIN 5000 UNITS SC ×2 (09:38→20:44)
[2023-09-16] MEDS: NOVOLOG FLEXPEN 25 UNITS SC (09:39)
[2023-09-16] MEDS: NOVOLOG FLEXPEN-MODERATE RESISTANCE SC ×2 (09:39→17:18)
--- NOTE | 2023-09-16 10:25 | W.PN.HOSP.TC ---
Today's Communication/Plan
-
Repeat angio on Monday
Continue with strict glycemic control
Continue with IV antibiotics
Assessment / Plan
Assessment / Plan
General: No Apparent Distress and Appears Chronically Ill
Respiratory: Clear to Auscultation
Cardiac: Regular Rhythm and S1/S2
GI: Soft, Nontender, Nondistended and Normal Bowel Sounds
Musculoskeletal: No Clubbing, No Cyanosis and Other (R foot covered in dressing/kiel wrap. warm to touch. )
Neuro: Awake, Alert, Oriented and AO x 3
Psych: Calm
73yo M with PMHx of DM, HTN, HLD came with c/o worsening discoloration of R toes. HE was seen by his hall cleaner and was sent to ED for possible intervention. Had I&D on 09/05/23 and wound Cx grew S.Aureus. Metabolic acedosis improved. Patient had to
be started on insulin 2/2 poorly controlled blood glucose and asthma educator was involved. VascSx panning on angio on 09/11/23
A/P:
#R lower extremity with third toe gangrene
#RLE tenosynovitis
#PAD
MRI with gas in the tissues
Vanco/Zosyn switched to Ancef/flagyl which has now been transitioned to Unasyn 3 g every 6
Bcx NTD
Wound Cx: MSSA and strep
Podiatry to follow: non viable tissue on I&D
Vascular evaluated status post right lower extremity angiogram
nephro following along-elevated Cr.
Status post ORIF on 09/12 by podiatry with debridement of the infected nonviable tissue. Significant improvement tissue perfusion was noted.
Podiatry correspondence noted-not much improvement in plantar soft tissue. Vascular surgery planning for repeat angiogram 09/18.
Status post left lower extremity ultrasound to assess for possible bypass.
Hig risk of limb loss due to PAD/Uncontrolled diabetes
# Peripheral arterial disease status post angiogram
Status post lithotripsy right lower extremity/angioplasty
Started on aspirin and continue statin
#HAGMA most likely 2/2 infection - resolved
#RAYMOND on CKD stage 3b
#Mild hyponatremia
#Hypokalemia
Nephro signed off. May need to start prophylactic bicarb prior to angiogram on Monday.
Monitor closely for contrast nephropathy.
Continue to hold metformin, lisinopril
Tolerating appropriate p.o. intake. Can hold off IV fluids.
#Transaminitis
#Elevated alk.phos
most likely 2/2 RLE infection
no abd pain
hepatitis C Ab neg
Resolved
#Anemia of chronic disease with REGGIE complicated by anemia 2/2 CKD
treat infection
IV iron course started
Iron PO upon d/c
#DM type 2 with circulatory complications/uncontrolled
on
Insulin SS, Accuchecks, DM diet
HgbA1c 10.1% - start Lantus 40u qhs and NovoLog 23 units lunch and NovoLog 25 units for breakfast denies
DM educator
Counseled patient multiple times about strict glycemic control upon discharge for appropriate wound healing
POC am 129
#Primary HTN
Cont norvasc and toprol
BP controlled.
#HLD
restart statin
#Nicotine dependency
Nicoderm PRN
#ASCVD
cont BB
DVT ppx hep
Full code
d/w with spouse at bedside in details on 09/13
Anticipated Discharge: > 48 hours
Subjective/Interval History
-
Date of Service: September 16, 2023
Underwent lower extremity ultrasound urgently yesterday
Denies right foot pain
Objective Data
-
Labs:
Laboratory Results
09/16/23
05:51
WBC 12.1 H
Hgb 7.9 L
Hct 24.0 L
Plt Count 465 H
Sodium 134 L
Potassium 4.3
Chloride 101
Carbon Dioxide 26
BUN 18
Creatinine 1.3
Glucose 93
Calcium 7.7 L
Vital Signs:
Vital Signs
Temp Pulse Resp BP Pulse Ox
98.7 F 78 18 134/64 94
09/16/23 07:00 09/16/23 07:00 09/16/23 07:00 09/16/23 07:00 09/16/23 07:00
I&O
09/15/23 09/16/23 09/17/23
06:59 06:59 06:59
Intake Total 2100 / 2100 720 / 720
Output Total 2600 / 2600 2550 / 2550
Balance -500 / -500 -1830 / -1830
Data Reviewed
-
Total Time Spent with Patient (in minutes): 53
[2023-09-16 11:32] LABS: Glucose - Point of Care 213 mg/dl (70-99)
[2023-09-16] MEDS: NOVOLOG FLEXPEN-MODERATE RESISTANCE 3 UNITS SC (13:34)
[2023-09-16] MEDS: NOVOLOG FLEXPEN 23 UNITS SC (13:35)
--- NOTE | 2023-09-16 14:15 | W.PN.NEPH.PH ---
Today's Communication / Plan
-
Observe
For angiogram on Monday
Holding ROSALBA inhibitor and Farxiga until cleared from contrast nephropathy on Monday following a-gram
If hyponatremia exacerbates will add back more aggressive fluid restriction
Assessment/Plan
-
IMP:
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
HAGMA
RAYMOND with CKD stage 3b baseline cr 1.4-1.7
Transaminitis
Anemia of chronic disease with REGGIE complicated by anemia 2/2 CKD
DM type 2 with circulatory complications
HLD
Nicotine dependency
ASCVD
Hypoalbuminemia
Plan:
A/w right foot gangrene and s/p i&d with 3rd toe amp on 09/04
RAYMOND-cr improving to 1.3 at baseline, non oliguric
KUS with no hydro, normal size kidneys, u pcr 700MG/MG OF CR
holding Farxiga, ACEI and metformin
BP are stable, meds with holding parameters
anemia-follow h/h, fe def, ON IV fe COURSE
renal dose meds, avoid nephrotoxins
hyponatremia at 134
replace k
Status post arteriogram on 09/11/2023 with PCI and intravascular lithotripsy
Patient will need contrast prophylaxis IV fluids prior to angiogram on Monday
-
-
Date of Service: September 16, 2023
CC / HPI / ROS
-
Chief Complaint:
RAYMOND
History of Present Illness:
Cr slightly better at 1.3 today, baseline likely 1.5-1.7
BP stable
no fever
Status post a gram with intervention on 09/11/2023 for right lower extremity critical limb ischemia
Sodium at 134
Review of Systems:
no cp or sob
nonoliguric
feels well
Labs
-
Labs:
WBC 12.1 10^3/uL (4.8-10.8) H 09/16/23 05:51
RBC 2.73 10^6/uL (4.70-6.10) L 09/16/23 05:51
Hgb 7.9 g/dL (13.0-18.0) L 09/16/23 05:51
Hct 24.0 % (39.0-52.0) L 09/16/23 05:51
Plt Count 465 10^3/uL (130-400) H 09/16/23 05:51
Sodium 134 mmol/L (135-145) L 09/16/23 05:51
Potassium 4.3 mmol/L (3.5-5.1) 09/16/23 05:51
Chloride 101 mmol/L (98-107) 09/16/23 05:51
Carbon Dioxide 26 mmol/L (22-30) 09/16/23 05:51
BUN 18 mg/dl (9-20) 09/16/23 05:51
Creatinine 1.3 mg/dL (0.7-1.3) 09/16/23 05:51
eGFR 58.37 09/16/23 05:51
Glucose 93 mg/dl (70-99) 09/16/23 05:51
Calcium 7.7 mg/dl (8.4-10.2) L 09/16/23 05:51
Albumin 2.4 g/dl (3.5-5.0) L 09/12/23 06:47
Physical Exam
-
Vital Signs:
Vital Signs
Temp Pulse Resp BP Pulse Ox
98.7 F 78 18 134/64 94
09/16/23 07:00 09/16/23 07:00 09/16/23 07:00 09/16/23 07:00 09/16/23 07:00
Cardiovascular:: Regular rate and rhythm
Respiratory:: Bilateral: CTA
Lung Excursion:: Normal
Abdomen:: Nontender and Soft
Bowel Sounds:: Normal
Extremity Edema:: None: Right: (wrapped) and None: Left:
Caraballo Catheter: No
--- NOTE | 2023-09-16 14:49 | W.PN.ID1 ---
Date of Service
Date of Service: September 16, 2023
Today's Communication
Continue antibiotics.
Assessment / Plan
Right foot gangrene
-S/p I&D and resection of third toe 09/05/2023
- s/p revision 09/12
Leukocytosis trending down
RAYMOND on CKD
Transaminitis
Elevated ESR and CRP
CAD
HTN
Dyslipidemia
DM type II (uncontrolled; A1c = 10.1)
Nephrolithiasis
Recommendations:
OR cx: MSSA, Strep species, Bacteroides, Finegoldia
Continue with Unasyn.
Tight glucose control.
Given uncontrolled diabetes along with neuropathy, patient is at high risk for limb loss.
����������������������������������������������������������
Chief Complaint
-: Other (Right foot gangrene)
Subjective / Review of Systems
Review of Systems: No Fever and No Chills
Vital Signs / Physical Exam
Vital Signs
Vital Signs
Temp Pulse Resp BP Pulse Ox
98.7 F 78 18 134/64 94
09/16/23 07:00 09/16/23 07:00 09/16/23 07:00 09/16/23 07:00 09/16/23 07:00
Physical Exam
Constitutional: No Acute Distress, Comfortable, Chronically Ill and Non-toxic
Eyes: Sclera Anicteric
Cardiovascular: S1/S2; Negative S3/S4
Pulmonary: Non Labored
Gastrointestinal: Non Distended
Wound: Other (right foot dressing dry and intact. No strikethrough. No erythema extending up leg.)
Neurological: Awake and Alert
Psychological: Calm
Objective Data
Lab Data
Lab Results
09/16/23 05:51
09/16/23 05:51
ESR 105 mm/hour (0-20) H 09/09/23 07:02
Estimated Creat Clear 61 ml/min 09/16/23 05:51
Lactic Acid 0.9 mmol/L (0.7-2.0) 09/05/23 11:13
Total Bilirubin 0.2 mg/dl (0.2-1.3) 09/12/23 06:47
AST 32 U/L (17-59) 09/12/23 06:47
ALT 38 U/L (0-50) 09/12/23 06:47
Alkaline Phosphatase 114 U/L (38-126) 09/12/23 06:47
C-Reactive Protein 206.40 mg/L (0.0-10.00) H 09/09/23 07:02
Most recent labs reviewed.
Micro Results:
09/05/23 19:39 Blood Culture - Final
Blood/Venous No Growth - Final Report
09/05/23 19:06 Blood Culture - Final
Blood/Venous No Growth - Final Report
09/05/23 16:09 Wound Culture - Final
Foot - Right S aureus-Methicillin Sensitive
Gram Stain - Final
09/05/23 16:11 Wound Culture - Final
Foot - Right S aureus-Methicillin Sensitive
Streptococcus species
Gram Stain - Final
09/05/23 Unknown Anaerobic Culture - Final
Foot - Right Bacteroides thetaiotaomicrom
Finegoldia magna
09/05/23 Unknown Anaerobic Culture - Final
Foot - Right Bacteroides thetaiotaomicrom
Finegoldia magna
09/04/23 13:03 Blood Culture - Final
Blood/Venous No Growth - Final Report
09/04/23 19:50 MRSA Screen - Final
Nose No Methicillin Resistant Staphylococcus aureus isolated.
Imaging:
09/05/2023 Plain film right foot: There has been interval resection of the right third digit at the level of the distal metatarsal bone. There is plantar soft tissue area which appears to be mainly in the region of the second and third metatarsal
bones. There is also a small amount of air off the posterior and superior margin of the calcaneus, anterior to the distal Achilles tendon, unchanged from earlier radiographs. Please see full dictation for additional detail.
09/05/2023 MRI right lower extremity: Numerous rounded foci of decreased signal intensity within the soft tissues of the distal right foot consistent with foci of soft tissue air. There is also concern for foci of air into the third metatarsal bone
and proximal phalanx of the right third toe. Please see full dictation for additional detail.
[2023-09-16 15:00] VITALS: BP 117/66
[2023-09-16 16:19] LABS: Glucose - Point of Care 112 mg/dl (70-99)
--- NOTE | 2023-09-16 17:35 | PTCARENOTE ---
Patient c/o not feeling well and diaphoretic, Glucose was 97, juice was given to patient. Physician notified, orders obtained to hold standing order of Novolog 25 units with dinner meal.
[2023-09-16 17:48] LABS: Glucose - Point of Care 97 mg/dl (70-99)
[2023-09-16] MEDS: NOVOLOG FLEXPEN SC (18:29)
[2023-09-16 21:13] LABS: Glucose - Point of Care 184 mg/dl (70-99)
[2023-09-16] MEDS: LANTUS 0.4 UNITS SC (21:16)
[2023-09-16] MEDS: LIPITOR 40 MG PO (21:16)
[2023-09-16 23:01] VITALS: BP 127/58
[2023-09-17] MEDS: UNASYN IV ×4 (06:07→23:01)
[2023-09-17 06:58] LABS: Glucose - Point of Care 125 mg/dl (70-99)
[2023-09-17 07:46] VITALS: BP 140/69
[2023-09-17] MEDS: NOVOLOG FLEXPEN-MODERATE RESISTANCE SC (09:08)
[2023-09-17] MEDS: VITAMIN C 1000 MG PO (09:09)
[2023-09-17] MEDS: LOW STRENGTH ASPIRIN 81 MG PO (09:09)
[2023-09-17] MEDS: TOPROL XL 50 MG PO ×2 (09:09→20:02)
[2023-09-17] MEDS: HEPARIN 5000 UNITS SC ×2 (09:09→20:03)
[2023-09-17] MEDS: NORVASC 2.5 MG PO (09:09)
[2023-09-17] MEDS: NOVOLOG FLEXPEN 25 UNITS SC ×2 (09:13→18:17)
--- NOTE | 2023-09-17 10:16 | W.PN.POD ---
Today's Communication
Today's Communication
Await results of arteriogram scheduled Monday
Assessment / Plan
-
Right LE cellulitis with 3rd toe gangrene
-Gas in plantar soft tissue based on MRI and amputation of right 3rd toe, met head performed 09/04
-09/09 Angioplasty showed completely occluded right PT artery. BK shockwave lithotripsy performed to PT artery extending to tibioperoneal trunk
-09/12 debridement of remaining devitalized tissue, including remaining lesser toes and metatarsal heads. hallux left in tact. Area of soft tissue debridement at medial first MTPJ now dry and non viable. Improvement to perfusion noted in dorsal
soft tissue but areas of medial plantar skin appear ischemic. Vascular surgery planning repeat angiogram to determine if any further intervention is possible to improve distal perfusion. Patient understands that in order to consider proximal TMA,
significant improvement in soft tissue perfusion is needed. Given uncontrolled diabetes with peripheral neuropathy and peripheral arterial disease, he is at high risk for limb loss.
DM uncontrolled with peripheral neuropathy
HgbA1c 10.1
Leukocytosis continues to trend down
-continue antibiotics as per ID
-OR cultured MSSA, Strep species, Bacteroides, Finegoldia
Subjective
Objective
Temp Pulse Resp BP Pulse Ox
99.5 F 78 16 140/69 94
09/17/23 07:46 09/17/23 07:46 09/17/23 07:46 09/17/23 07:46 09/17/23 07:46
09/16/23 05:51
09/16/23 05:51
Vital Signs and Lab results were reviewed.
Physical Exam
Physical Exam
Dressing changed today with no malodor noted and no purulence expressed. Increased granulation tissue present dorsal flap, but medial forefoot and rearfoot with areas of soft tissue appearing dry, dusky.
[2023-09-17 11:31] LABS: Glucose - Point of Care 215 mg/dl (70-99)
--- NOTE | 2023-09-17 11:46 | W.PN.HOSP.TC ---
Today's Communication/Plan
-
angio monday
labs in am
monitor poc
Assessment / Plan
Assessment / Plan
General: No Apparent Distress and Appears Chronically Ill
Respiratory: Clear to Auscultation
Cardiac: Regular Rhythm and S1/S2
GI: Soft, Nontender, Nondistended and Normal Bowel Sounds
Musculoskeletal: No Clubbing, No Cyanosis and Other (R foot covered in dressing/kiel wrap. warm to touch. )
Neuro: Awake, Alert, Oriented and AO x 3
Psych: Calm
73yo M with PMHx of DM, HTN, HLD came with c/o worsening discoloration of R toes. HE was seen by his monitor technician and was sent to ED for possible intervention. Had I&D on 09/05/23 and wound Cx grew S.Aureus. Metabolic acedosis improved. Patient had to
be started on insulin 2/2 poorly controlled blood glucose and outreach educator was involved. VascSx panning on angio on 09/11/23
A/P:
#R lower extremity with third toe gangrene
#RLE tenosynovitis
#PAD
MRI with gas in the tissues
Vanco/Zosyn switched to Ancef/flagyl which has now been transitioned to Unasyn 3 g every 6
Bcx NTD
Wound Cx: MSSA and strep
Podiatry to follow: non viable tissue on I&D
Vascular evaluated status post right lower extremity angiogram
nephro following along-elevated Cr.
Status post ORIF on 09/12 by podiatry with debridement of the infected nonviable tissue. Significant improvement tissue perfusion was noted.
Podiatry correspondence noted-not much improvement in plantar soft tissue. Vascular surgery planning for repeat angiogram 09/18.
Status post left lower extremity ultrasound to assess for possible bypass.
Hig risk of limb loss due to PAD/Uncontrolled diabetes
# Peripheral arterial disease status post angiogram
Status post lithotripsy right lower extremity/angioplasty
Started on aspirin and continue statin
#HAGMA most likely 2/2 infection - resolved
#RAYMOND on CKD stage 3b
#Mild hyponatremia
#Hypokalemia
Nephro signed off. May need to start prophylactic bicarb prior to angiogram on Monday.
Monitor closely for contrast nephropathy.
Continue to hold metformin, lisinopril
Tolerating appropriate p.o. intake. Can hold off IV fluids.
#Transaminitis
#Elevated alk.phos
most likely 2/2 RLE infection
no abd pain
hepatitis C Ab neg
Resolved
#Anemia of chronic disease with REGGIE complicated by anemia 2/2 CKD
treat infection
IV iron course started
Iron PO upon d/c
#DM type 2 with circulatory complications/uncontrolled
on
Insulin SS, Accuchecks, DM diet
HgbA1c 10.1% - start Lantus 40u qhs and NovoLog 10 units lunch and NovoLog 25 units for breakfast
Counseled patient multiple times about strict glycemic control upon discharge for appropriate wound healing
POC am 125
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
#Primary HTN
Cont norvasc and toprol
BP controlled.
#HLD
restart statin
#Nicotine dependency
Nicoderm PRN
#ASCVD
cont BB
DVT ppx hep
Full code
d/w with spouse at bedside in details on 09/13
Anticipated Discharge: > 48 hours
Subjective/Interval History
-
Date of Service: September 17, 2023
felt diaphoretic yesterday with poc of 100s
tolerating diet
Objective Data
-
Vital Signs:
Vital Signs
Temp Pulse Resp BP Pulse Ox
99.5 F 78 16 140/69 94
09/17/23 07:46 09/17/23 07:46 09/17/23 07:46 09/17/23 07:46 09/17/23 07:46
I&O
09/16/23 09/17/23 09/18/23
06:59 06:59 06:59
Intake Total 720 / 720 1020 / 1020
Output Total 2550 / 2550 1800 / 1800
Balance -1830 / -1830 -780 / -780
[2023-09-17] MEDS: NOVOLOG FLEXPEN 10 UNITS SC (12:29)
[2023-09-17] MEDS: NOVOLOG FLEXPEN-MODERATE RESISTANCE 3 UNITS SC ×2 (12:29→18:17)
--- NOTE | 2023-09-17 12:38 | W.PN.ID1 ---
Date of Service
Date of Service: September 17, 2023
Today's Communication
Continue abx.
Assessment / Plan
Right foot gangrene
- s/p I&D and resection of third toe 09/05/2023
- s/p revision 09/12
Leukocytosis trending down
RAYMOND on CKD
Transaminitis
Elevated ESR and CRP
CAD
HTN
Dyslipidemia
DM type II (uncontrolled; A1c = 10.1)
Nephrolithiasis
Recommendations:
OR cx: MSSA, Strep species, Bacteroides, Finegoldia
Continue with Unasyn.
Awaiting further vascular workup and possible subsequent TMA.
Tight glucose control.
Given uncontrolled diabetes along with neuropathy, patient is at high risk for limb loss.
����������������������������������������������������������
Chief Complaint
-: Other (Right foot gangrene)
Subjective / Review of Systems
Review of Systems: No Fever and No Chills
Vital Signs / Physical Exam
Vital Signs
Vital Signs
Temp Pulse Resp BP Pulse Ox
99.5 F 78 16 140/69 94
09/17/23 07:46 09/17/23 07:46 09/17/23 07:46 09/17/23 07:46 09/17/23 07:46
Physical Exam
Constitutional: No Acute Distress, Comfortable and Chronically Ill
Eyes: Sclera Anicteric
Cardiovascular: S1/S2; Negative S3/S4
Pulmonary: Non Labored
Gastrointestinal: Non Distended
Wound: Other (right foot dressing dry and intact. No strikethrough. No erythema extending up leg.)
Neurological: Awake and Alert
Psychological: Calm
Objective Data
Lab Data
Lab Results
09/16/23 05:51
09/16/23 05:51
ESR 105 mm/hour (0-20) H 09/09/23 07:02
Estimated Creat Clear 61 ml/min 09/16/23 05:51
Lactic Acid 0.9 mmol/L (0.7-2.0) 09/05/23 11:13
Total Bilirubin 0.2 mg/dl (0.2-1.3) 09/12/23 06:47
AST 32 U/L (17-59) 09/12/23 06:47
ALT 38 U/L (0-50) 09/12/23 06:47
Alkaline Phosphatase 114 U/L (38-126) 09/12/23 06:47
C-Reactive Protein 206.40 mg/L (0.0-10.00) H 09/09/23 07:02
Most recent labs reviewed.
Micro Results:
09/05/23 19:39 Blood Culture - Final
Blood/Venous No Growth - Final Report
09/05/23 19:06 Blood Culture - Final
Blood/Venous No Growth - Final Report
09/05/23 16:09 Wound Culture - Final
Foot - Right S aureus-Methicillin Sensitive
Gram Stain - Final
09/05/23 16:11 Wound Culture - Final
Foot - Right S aureus-Methicillin Sensitive
Streptococcus species
Gram Stain - Final
09/05/23 Unknown Anaerobic Culture - Final
Foot - Right Bacteroides thetaiotaomicrom
Finegoldia magna
09/05/23 Unknown Anaerobic Culture - Final
Foot - Right Bacteroides thetaiotaomicrom
Finegoldia magna
09/04/23 13:03 Blood Culture - Final
Blood/Venous No Growth - Final Report
09/04/23 19:50 MRSA Screen - Final
Nose No Methicillin Resistant Staphylococcus aureus isolated.
Imaging:
09/05/2023 Plain film right foot: There has been interval resection of the right third digit at the level of the distal metatarsal bone. There is plantar soft tissue area which appears to be mainly in the region of the second and third metatarsal
bones. There is also a small amount of air off the posterior and superior margin of the calcaneus, anterior to the distal Achilles tendon, unchanged from earlier radiographs. Please see full dictation for additional detail.
09/05/2023 MRI right lower extremity: Numerous rounded foci of decreased signal intensity within the soft tissues of the distal right foot consistent with foci of soft tissue air. There is also concern for foci of air into the third metatarsal bone
and proximal phalanx of the right third toe. Please see full dictation for additional detail.
[2023-09-17] MEDS: NOVOLOG FLEXPEN SC (12:40)
--- NOTE | 2023-09-17 12:40 | W.PN.NEPH.PH ---
Today's Communication / Plan
-
Observe
Assessment/Plan
-
IMP:
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
HAGMA
RAYOMND with CKD stage 3b baseline cr 1.4-1.7
Transaminitis
Anemia of chronic disease with REGGIE complicated by anemia 2/2 CKD
DM type 2 with circulatory complications
HLD
Nicotine dependency
ASCVD
Hypoalbuminemia
Plan:
A/w right foot gangrene and s/p i&d with 3rd toe amp on 09/04
RAYMOND-cr improving to 1.3 at baseline, non oliguric
KUS with no hydro, normal size kidneys, u pcr 700MG/MG OF CR
holding Farxiga, ACEI and metformin
BP are stable, meds with holding parameters
anemia-follow h/h, fe def, ON IV fe COURSE
renal dose meds, avoid nephrotoxins
hyponatremia at 134
replace k
Status post arteriogram on 09/11/2023 with PCI and intravascular lithotripsy
Patient will need contrast prophylaxis IV fluids prior to angiogram on Monday
-
-
Date of Service: September 17, 2023
CC / HPI / ROS
-
Chief Complaint:
RAYMOND
History of Present Illness:
Cr slightly better at 1.3 y, baseline likely 1.5-1.7
BP stable
no fever
Status post a gram with intervention on 09/11/2023 for right lower extremity critical limb ischemia
Sodium at 134
Review of Systems:
no cp or sob
nonoliguric
feels well
Labs
-
Labs:
WBC 12.1 10^3/uL (4.8-10.8) H 09/16/23 05:51
RBC 2.73 10^6/uL (4.70-6.10) L 09/16/23 05:51
Hgb 7.9 g/dL (13.0-18.0) L 09/16/23 05:51
Hct 24.0 % (39.0-52.0) L 09/16/23 05:51
Plt Count 465 10^3/uL (130-400) H 09/16/23 05:51
Sodium 134 mmol/L (135-145) L 09/16/23 05:51
Potassium 4.3 mmol/L (3.5-5.1) 09/16/23 05:51
Chloride 101 mmol/L (98-107) 09/16/23 05:51
Carbon Dioxide 26 mmol/L (22-30) 09/16/23 05:51
BUN 18 mg/dl (9-20) 09/16/23 05:51
Creatinine 1.3 mg/dL (0.7-1.3) 09/16/23 05:51
eGFR 58.37 09/16/23 05:51
Glucose 93 mg/dl (70-99) 09/16/23 05:51
Calcium 7.7 mg/dl (8.4-10.2) L 09/16/23 05:51
Albumin 2.4 g/dl (3.5-5.0) L 09/12/23 06:47
Physical Exam
-
Vital Signs:
Vital Signs
Temp Pulse Resp BP Pulse Ox
99.5 F 78 16 140/69 94
09/17/23 07:46 09/17/23 07:46 09/17/23 07:46 09/17/23 07:46 09/17/23 07:46
Cardiovascular:: Regular rate and rhythm
Respiratory:: Bilateral: CTA
Lung Excursion:: Normal
Abdomen:: Nontender and Soft
Bowel Sounds:: Normal
Extremity Edema:: None: Right: (wrapped) and None: Left:
Caraballo Catheter: No
[2023-09-17 15:16] VITALS: BP 129/64
[2023-09-17 16:08] LABS: Glucose - Point of Care 201 mg/dl (70-99)
[2023-09-17 21:15] LABS: Glucose - Point of Care 249 mg/dl (70-99)
[2023-09-17] MEDS: LANTUS 0.4 UNITS SC (22:05)
[2023-09-17] MEDS: LIPITOR 40 MG PO (22:05)
[2023-09-17] MEDS: TYLENOL 500 MG PO (23:05)
[2023-09-17 23:10] VITALS: BP 147/70
[2023-09-18] MEDS: UNASYN IV ×4 (06:01→23:46)
[2023-09-18 06:57] LABS: Glucose - Point of Care 120 mg/dl (70-99)
[2023-09-18 07:15] VITALS: BP 142/65
[2023-09-18] MEDS: LOW STRENGTH ASPIRIN 81 MG PO (08:45)
[2023-09-18] MEDS: NOVOLOG FLEXPEN-MODERATE RESISTANCE SC ×2 (08:45→13:29)
[2023-09-18] MEDS: NORVASC 2.5 MG PO (08:45)
[2023-09-18] MEDS: VITAMIN C 1000 MG PO (08:45)
[2023-09-18] MEDS: NOVOLOG FLEXPEN 25 UNITS SC ×2 (08:46→17:56)
[2023-09-18] MEDS: HEPARIN 5000 UNITS SC ×2 (08:46→20:30)
[2023-09-18] MEDS: TOPROL XL 50 MG PO ×2 (08:46→20:29)
--- NOTE | 2023-09-18 09:07 | PN.DE.MGMTRT ---
Insulin Management
- -
09/18/2023: Diabetes Management F/U:
Patient admitted with worsening discoloration of Right foot toes due to 3rd toe gangrene and RLE tenosynovitis. MRI noted for gas in the tissues
PMH: ASCVD, HTN, HLD, CKD IIIb, Anemia of chronic disease with REGGIE complicated by anemia 2/2 CKD, Nicotine dependency and T2DM. Was taking Metformin 1000 mg BID and Farxiga 10mg daily prior to admission. A1C 10.1%, Cr 2.6, eGFR 25.41.
States he has had diabetes 10 to 15 years but never tested his glucose. Discussed current A1C and glucose trend, pt made aware that insulin is the only safe option for mgt, with uptrending Cr. Pt was hesitant at first stating that he was hoping he
wouldn't need insulin because he lives on a fixed budget but was agreeable when he learned that insurance will likely cover most of the cost of his insulin especially if he didn't have any issues with coverage of Farxiga.
09/06 Instructed patient on prep and injection technique for pre filled pens with fair return demonstration. Provided home pen needles, nursing to continue reinforcing self inject at all meals. Instructed on action of both Lantus and NovoLog and
injection sites. Verbalized understanding.
Provided Contour next glucose monitor and instructed with good return demonstration.
Pt awake, A/Ox3, Resting in bed, offers no complaints, able to discuss diabetes mgt. States he feels confident with giving himself injections.
Reassured him we would work to have a routine established as far as doses and times to take injections.
POD #13 s/p I& D of right foot w/amputation of 3rd toe and metatarsal head.
POD 7 s/p angiogram with lithotripsy; POD 5 further debridement right foot.
09/16 Pre lunch and dinner Glucose 201 to 215, required 3 units additional corrective insulin.
Will increase NovoLog lunch to 15 units. Continue 25 units of NovoLog at breakfast and dinner, Farxiga 10 mg daily and 55 Lantus @ HS.
Will closely monitor glucose and adjust insulin if necessary
Diabetes History
- -
Type of Diabetes: 2 requiring insulin
Pre-Admission Diabetes Regimen
Lab Results
Hemoglobin A1c 10.1 % (4.0-5.6) H 09/05/23 08:10
Insulin Pump Settings
IP Diabetes Regimen
09/17/23 09/17/23 09/17/23
11:28 16:07 21:12
POC Glucose 215 H 201 H 249 H
09/18/23
06:56
POC Glucose 120 H
Meal type: Lunch
Meal type: Breakfast
Amount consumed: 100%
Amount consumed: 100%
Patient Education
--- NOTE | 2023-09-18 11:06 | W.PN.ID1 ---
Date of Service
Date of Service: September 18, 2023
Today's Communication
Continue antibiotics.
Assessment / Plan
Right foot gangrene
- s/p I&D and resection of third toe 09/05/2023
- s/p revision 09/12
Leukocytosis trending down
RAYMOND on CKD
Transaminitis
Elevated ESR and CRP
CAD
HTN
Dyslipidemia
DM type II (uncontrolled; A1c = 10.1)
Nephrolithiasis
Recommendations:
OR cx: MSSA, Strep species, Bacteroides, Finegoldia
Continue with Unasyn.
Awaiting further vascular workup and possible subsequent TMA.
Tentative angiography tomorrow.
Tight glucose control.
Given uncontrolled diabetes along with neuropathy, patient is at high risk for limb loss.
����������������������������������������������������������
Chief Complaint
-: Other (Right foot gangrene)
Subjective / Review of Systems
Seen / examined. No reported issues. No pain.
Review of Systems: No Fever and No Chills
Vital Signs / Physical Exam
Vital Signs
Vital Signs
Temp Pulse Resp BP Pulse Ox
98.8 F 77 17 142/65 95
09/18/23 07:15 09/18/23 07:15 09/18/23 07:15 09/18/23 07:15 09/18/23 07:15
Physical Exam
Constitutional: No Acute Distress
Eyes: Sclera Anicteric
Cardiovascular: S1/S2; Negative S3/S4
Pulmonary: Non Labored
Gastrointestinal: Non Distended
Wound: Other (right foot dressing dry and intact. Small amount of bloody strikethrough. No erythema extending up leg.)
Neurological: Awake and Alert
Psychological: Calm
Objective Data
Lab Data
Lab Results
09/16/23 05:51
09/16/23 05:51
ESR 105 mm/hour (0-20) H 09/09/23 07:02
Estimated Creat Clear 61 ml/min 09/16/23 05:51
Lactic Acid 0.9 mmol/L (0.7-2.0) 09/05/23 11:13
Total Bilirubin 0.2 mg/dl (0.2-1.3) 09/12/23 06:47
AST 32 U/L (17-59) 09/12/23 06:47
ALT 38 U/L (0-50) 09/12/23 06:47
Alkaline Phosphatase 114 U/L (38-126) 09/12/23 06:47
C-Reactive Protein 206.40 mg/L (0.0-10.00) H 09/09/23 07:02
Most recent labs reviewed.
Micro Results:
09/05/23 19:39 Blood Culture - Final
Blood/Venous No Growth - Final Report
09/05/23 19:06 Blood Culture - Final
Blood/Venous No Growth - Final Report
09/05/23 16:09 Wound Culture - Final
Foot - Right S aureus-Methicillin Sensitive
Gram Stain - Final
09/05/23 16:11 Wound Culture - Final
Foot - Right S aureus-Methicillin Sensitive
Streptococcus species
Gram Stain - Final
09/05/23 Unknown Anaerobic Culture - Final
Foot - Right Bacteroides thetaiotaomicrom
Finegoldia magna
09/05/23 Unknown Anaerobic Culture - Final
Foot - Right Bacteroides thetaiotaomicrom
Finegoldia magna
09/04/23 13:03 Blood Culture - Final
Blood/Venous No Growth - Final Report
09/04/23 19:50 MRSA Screen - Final
Nose No Methicillin Resistant Staphylococcus aureus isolated.
Imaging:
09/05/2023 Plain film right foot: There has been interval resection of the right third digit at the level of the distal metatarsal bone. There is plantar soft tissue area which appears to be mainly in the region of the second and third metatarsal
bones. There is also a small amount of air off the posterior and superior margin of the calcaneus, anterior to the distal Achilles tendon, unchanged from earlier radiographs. Please see full dictation for additional detail.
09/05/2023 MRI right lower extremity: Numerous rounded foci of decreased signal intensity within the soft tissues of the distal right foot consistent with foci of soft tissue air. There is also concern for foci of air into the third metatarsal bone
and proximal phalanx of the right third toe. Please see full dictation for additional detail.
[2023-09-18 11:27] LABS: Glucose - Point of Care 83 mg/dl (70-99)
--- NOTE | 2023-09-18 13:29 | W.PN.HOSP.TC ---
Today's Communication/Plan
-
STart IVF
renew Abx
pending angio
Labs in AM
Assessment / Plan
Assessment / Plan
73yo M with PMHx of DM, HTN, HLD came with c/o worsening discoloration of R toes. HE was seen by his siebel architect and was sent to ED for possible intervention. Had I&D on 09/05/23 and wound Cx grew S.Aureus. Metabolic acidosis improved. Patient had to
be started on insulin 2/2 poorly controlled blood glucose and productivity engineer was involved. VascSx did angio on 09/11/23, then podiatry did second debridenemt on 09/11/23. Pending repeated angio on 09/19/23
A/P:
#R lower extremity with third toe gangrene
#RLE tenosynovitis
#PAD
MRI with gas in the tissues
Vanco/Zosyn switched to Ancef/flagyl which has now been transitioned to Unasyn 3 g every 6
Bcx NTD
Wound Cx: MSSA and strep
Podiatry to follow: non viable tissue on I&D
Vascular evaluated status post right lower extremity angiogram
nephro following along-elevated Cr.
Status post ORIF on 09/12 by podiatry with debridement of the infected nonviable tissue. Significant improvement tissue perfusion was noted.
Podiatry correspondence noted-not much improvement in plantar soft tissue. Vascular surgery planning for repeat angiogram 09/18.
Status post left lower extremity ultrasound to assess for possible bypass.
High risk of limb loss due to PAD/Uncontrolled diabetes
# Peripheral arterial disease status post angiogram
Status post lithotripsy right lower extremity/angioplasty
Started on aspirin and continue statin
#HAGMA most likely 2/2 infection - resolved
#RAYMOND on CKD stage 3b
#Mild hyponatremia
#Hypokalemia
Nephro signed off. May need to start prophylactic bicarb prior to angiogram on Monday.
Monitor closely for contrast nephropathy.
Continue to hold metformin, lisinopril
Tolerating appropriate p.o. intake. Can hold off IV fluids.
#Transaminitis
#Elevated alk.phos
most likely 2/2 RLE infection
no abd pain
hepatitis C Ab neg
Resolved
#Anemia of chronic disease with REGGIE complicated by anemia 2/2 CKD
treat infection
IV iron course started
Iron PO upon d/c
#DM type 2 with circulatory complications/uncontrolled
on Farxiga
Insulin SS, Accuchecks, DM diet
HgbA1c 10.1% - start Lantus 40u qhs and NovoLog 10 units lunch and NovoLog 25 units for breakfast. Patient had teaching for insulin injection.
Counseled patient multiple times about strict glycemic control upon discharge for appropriate wound healing
POC am 125
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
#Primary HTN
Cont norvasc and toprol
BP controlled.
#HLD
restart statin
#Nicotine dependency
Nicoderm PRN
#ASCVD
cont BB
DVT ppx hep
Full code
I have spent at least 36min reviewing chart, test results, communication with consultants and direct patient care
Anticipated Discharge: > 48 hours
Subjective/Interval History
-
Date of Service: September 18, 2023
Objective Data
-
Vital Signs:
Vital Signs
Temp Pulse Resp BP Pulse Ox
98.8 F 77 17 142/65 95
09/18/23 07:15 09/18/23 07:15 09/18/23 07:15 09/18/23 07:15 09/18/23 07:15
I&O
09/17/23 09/18/23 09/19/23
06:59 06:59 06:59
Intake Total 1020 / 1020 2100 / 2100
Output Total 1800 / 1800 1250 / 1250
Balance -780 / -780 850 / 850
Review of Systems
-
History Source: Patient
All other systems: Reviewed and negative
Physical Exam
-
General: No Apparent Distress
HEENT: Normocephalic and Atraumatic
Respiratory: Clear to Auscultation
GI: Soft, Nontender and Nondistended
Musculoskeletal: No Clubbing and No Cyanosis
Skin: Warm
Neuro: Awake, Alert, Oriented and AO x 3
Psych: Calm
[2023-09-18] MEDS: NOVOLOG FLEXPEN 15 UNITS SC (13:30)
[2023-09-18] MEDS: NSS 1000 IV (13:43)
[2023-09-18 15:05] VITALS: BP 128/64
--- NOTE | 2023-09-18 15:10 | W.PN.NEPH.PH ---
Today's Communication / Plan
-
- sodium bicarb gtt at midnight
Assessment/Plan
-
IMP:
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
HAGMA
RAYMOND with CKD stage 3b baseline cr 1.4-1.7
Transaminitis
Anemia of chronic disease with REGGIE complicated by anemia 2/2 CKD
DM type 2 with circulatory complications
HLD
Nicotine dependency
ASCVD
Hypoalbuminemia
Plan:
A/w right foot gangrene and s/p i&d with 3rd toe amp on 09/04
RAYMOND-cr improving to 1.3 at baseline, non oliguric
KUS with no hydro, normal size kidneys, u pcr 700MG/MG OF CR
holding Farxiga, ACEI and metformin
BP are stable, meds with holding parameters
anemia-follow h/h, fe def, ON IV fe COURSE
renal dose meds, avoid nephrotoxins
hyponatremia at 134
replace k
Status post arteriogram on 09/11/2023 with PCI and intravascular lithotripsy
no labs on 09/17
plan for sodium bicarb fluids starting midnight for contrast prophylaxis IV fluids prior to angiogram on Monday
-
-
Date of Service: September 18, 2023
CC / HPI / ROS
-
Chief Complaint:
RAYMOND
History of Present Illness:
Cr slightly better at 1.3 y, baseline likely 1.5-1.7
BP stable
no fever
Status post a gram with intervention on 09/11/2023 for right lower extremity critical limb ischemia
Sodium at 134
Review of Systems:
no cp or sob
nonoliguric
feels well
Labs
-
Labs:
WBC 12.1 10^3/uL (4.8-10.8) H 09/16/23 05:51
RBC 2.73 10^6/uL (4.70-6.10) L 09/16/23 05:51
Hgb 7.9 g/dL (13.0-18.0) L 09/16/23 05:51
Hct 24.0 % (39.0-52.0) L 09/16/23 05:51
Plt Count 465 10^3/uL (130-400) H 09/16/23 05:51
Sodium 134 mmol/L (135-145) L 09/16/23 05:51
Potassium 4.3 mmol/L (3.5-5.1) 09/16/23 05:51
Chloride 101 mmol/L (98-107) 09/16/23 05:51
Carbon Dioxide 26 mmol/L (22-30) 09/16/23 05:51
BUN 18 mg/dl (9-20) 09/16/23 05:51
Creatinine 1.3 mg/dL (0.7-1.3) 09/16/23 05:51
eGFR 58.37 09/16/23 05:51
Glucose 93 mg/dl (70-99) 09/16/23 05:51
Calcium 7.7 mg/dl (8.4-10.2) L 09/16/23 05:51
Albumin 2.4 g/dl (3.5-5.0) L 09/12/23 06:47
Physical Exam
-
Vital Signs:
Vital Signs
Temp Pulse Resp BP Pulse Ox
98.2 F 73 17 128/64 95
09/18/23 15:05 09/18/23 15:05 09/18/23 15:05 09/18/23 15:05 09/18/23 15:05
Cardiovascular:: Regular rate and rhythm
Respiratory:: Bilateral: CTA
Lung Excursion:: Normal
Abdomen:: Nontender and Soft
Bowel Sounds:: Normal
Extremity Edema:: None: Right: (wrapped) and None: Left:
Caraballo Catheter: No
--- NOTE | 2023-09-18 15:10 | CM ---
CM reviewed chart, patient pending repeat angiogram 09/19/23. Patient seen bedside, reports no concerns. CM will continue to follow for all discharge planning needs.
Plan; home no needs vs VN, patient would like to discuss closer to discharge.
[2023-09-18 16:54] LABS: Glucose - Point of Care 172 mg/dl (70-99)
[2023-09-18] MEDS: NOVOLOG FLEXPEN-MODERATE RESISTANCE 1 UNITS SC (17:55)
[2023-09-18] MEDS: LIPITOR 40 MG PO (20:29)
[2023-09-18 21:16] LABS: Glucose - Point of Care 153 mg/dl (70-99)
[2023-09-18] MEDS: LANTUS 0.4 UNITS SC (22:34)
[2023-09-18 23:03] VITALS: BP 168/86
[2023-09-19] VITALS (13 sets, daily range): BP systolic 126–145; BP diastolic 55–76
[2023-09-19] MEDS: NSS 1000 IV ×2 (00:57→18:08)
[2023-09-19] MEDS: UNASYN IV ×3 (06:09→19:38)
[2023-09-19 06:10] LABS: Glucose - Point of Care 131 mg/dl (70-99)
[2023-09-19] MEDS: NOVOLOG FLEXPEN-MODERATE RESISTANCE SC ×3 (07:26→16:27)
[2023-09-19] MEDS: NOVOLOG FLEXPEN SC ×3 (07:26→19:58)
--- NOTE | 2023-09-19 08:34 | PN.DE.MGMTRT ---
Insulin Management
- -
09/19/2023: Diabetes Management F/U:
Patient admitted with worsening discoloration of Right foot toes due to 3rd toe gangrene and RLE tenosynovitis. MRI noted for gas in the tissues
PMH: ASCVD, HTN, HLD, CKD IIIb, Anemia of chronic disease with REGGIE complicated by anemia 2/2 CKD, Nicotine dependency and T2DM. Was taking Metformin 1000 mg BID and Farxiga 10mg daily prior to admission. A1C 10.1%, Cr 2.6, eGFR 25.41.
States he has had diabetes 10 to 15 years but never tested his glucose. Discussed current A1C and glucose trend, pt made aware that insulin is the only safe option for mgt, with uptrending Cr. Pt was hesitant at first stating that he was hoping he
wouldn't need insulin because he lives on a fixed budget but was agreeable when he learned that insurance will likely cover most of the cost of his insulin especially if he didn't have any issues with coverage of Farxiga.
09/06 Instructed patient on prep and injection technique for pre filled pens with fair return demonstration. Provided home pen needles, nursing to continue reinforcing self inject at all meals. Instructed on action of both Lantus and NovoLog and
injection sites. Verbalized understanding.
Provided Contour next glucose monitor and instructed with good return demonstration.
Pt awake, A/Ox3, Resting in bed, offers no complaints, able to discuss diabetes mgt. States he feels confident with giving himself injections.
Reassured him we would work to have a routine established as far as doses and times to take injections.
POD #14 s/p I& D of right foot w/amputation of 3rd toe and metatarsal head.
POD # 8 s/p angiogram with lithotripsy; POD# 6 further debridement right foot.
NPO for repeat angio today. Received Lantus 40 units last night. Glucose stable and in range.
Will make no changes to current regimen: NovoLog 25 units at breakfast and dinner, and 15 units at lunch, Farxiga 10 mg daily and Lantus 40 units @ HS.
Will closely monitor glucose and adjust insulin if necessary
Diabetes History
- -
Type of Diabetes: 2 requiring insulin
Pre-Admission Diabetes Regimen
Lab Results
Hemoglobin A1c 10.1 % (4.0-5.6) H 09/05/23 08:10
Insulin Pump Settings
IP Diabetes Regimen
09/18/23 09/18/23 09/18/23
11:26 16:53 21:12
POC Glucose 83 172 H 153 H
09/19/23
06:07
POC Glucose 131 H
Meal type: Lunch
Meal type: Breakfast
Amount consumed: 100%
Amount consumed: 100%
Patient Education
[2023-09-19] MEDS: TOPROL XL 50 MG PO ×2 (08:39→19:39)
[2023-09-19] MEDS: NORVASC 2.5 MG PO (08:39)
[2023-09-19] MEDS: LOW STRENGTH ASPIRIN 81 MG PO (08:39)
[2023-09-19] MEDS: HEPARIN 5000 UNITS SC ×2 (08:39→19:39)
[2023-09-19] MEDS: VITAMIN C 1000 MG PO (08:39)
--- NOTE | 2023-09-19 08:58 | W.PN.ID1 ---
Date of Service
Date of Service: September 19, 2023
Today's Communication
Continue antibiotics
Assessment / Plan
Right foot gangrene
- s/p I&D and resection of third toe 09/05/2023
- s/p revision 09/12
Leukocytosis trending down
RYAMOND on CKD
Transaminitis
Elevated ESR and CRP
CAD
HTN
Dyslipidemia
DM type II (uncontrolled; A1c = 10.1)
Nephrolithiasis
Recommendations:
OR cx: MSSA, Strep species, Bacteroides, Finegoldia
Continue with Unasyn (d#15 abx)
Awaiting further vascular workup and possible subsequent TMA.
Tentative angiography today.
Tight glucose control.
Given uncontrolled diabetes along with neuropathy, patient is at high risk for limb loss.
����������������������������������������������������������
Chief Complaint
-: Other (Right foot gangrene)
Subjective / Review of Systems
Review of Systems: No Fever, No Chills, No Cough and No Abdominal Pain
Vital Signs / Physical Exam
Vital Signs
Vital Signs
Temp Pulse Resp BP Pulse Ox
98.9 F 78 16 133/66 96
09/19/23 07:00 09/19/23 07:00 09/19/23 07:00 09/19/23 07:00 09/19/23 07:00
Physical Exam
Constitutional: No Acute Distress
Eyes: Sclera Anicteric
Cardiovascular: S1/S2; Negative S3/S4
Pulmonary: Non Labored
Gastrointestinal: Non Distended
Wound: Other (right foot dressing dry and intact. Small amount of bloody strikethrough. No erythema extending up leg.)
Neurological: Awake and Alert
Psychological: Calm
Objective Data
Lab Data
ESR 105 mm/hour (0-20) H 09/09/23 07:02
Estimated Creat Clear 61 ml/min 09/16/23 05:51
Lactic Acid 0.9 mmol/L (0.7-2.0) 09/05/23 11:13
Total Bilirubin 0.2 mg/dl (0.2-1.3) 09/12/23 06:47
AST 32 U/L (17-59) 09/12/23 06:47
ALT 38 U/L (0-50) 09/12/23 06:47
Alkaline Phosphatase 114 U/L (38-126) 09/12/23 06:47
C-Reactive Protein 206.40 mg/L (0.0-10.00) H 09/09/23 07:02
Most recent labs reviewed.
Micro Results:
09/05/23 19:39 Blood Culture - Final
Blood/Venous No Growth - Final Report
09/05/23 19:06 Blood Culture - Final
Blood/Venous No Growth - Final Report
09/05/23 16:09 Wound Culture - Final
Foot - Right S aureus-Methicillin Sensitive
Gram Stain - Final
09/05/23 16:11 Wound Culture - Final
Foot - Right S aureus-Methicillin Sensitive
Streptococcus species
Gram Stain - Final
09/05/23 Unknown Anaerobic Culture - Final
Foot - Right Bacteroides thetaiotaomicrom
Finegoldia magna
09/05/23 Unknown Anaerobic Culture - Final
Foot - Right Bacteroides thetaiotaomicrom
Finegoldia magna
09/04/23 13:03 Blood Culture - Final
Blood/Venous No Growth - Final Report
09/04/23 19:50 MRSA Screen - Final
Nose No Methicillin Resistant Staphylococcus aureus isolated.
Imaging:
09/05/2023 Plain film right foot: There has been interval resection of the right third digit at the level of the distal metatarsal bone. There is plantar soft tissue area which appears to be mainly in the region of the second and third metatarsal
bones. There is also a small amount of air off the posterior and superior margin of the calcaneus, anterior to the distal Achilles tendon, unchanged from earlier radiographs. Please see full dictation for additional detail.
09/05/2023 MRI right lower extremity: Numerous rounded foci of decreased signal intensity within the soft tissues of the distal right foot consistent with foci of soft tissue air. There is also concern for foci of air into the third metatarsal bone
and proximal phalanx of the right third toe. Please see full dictation for additional detail.
[2023-09-19 09:11] LABS: % Basophils 0.8 % (0-2); % Eosinophils 2.2 % (0-6); % Immature Granulocytes 0.7 % (0-0.5); % Lymphocytes 12.3 % (20.5-51.1); Absolute Basophils 0.1 10^3/uL (0-0.2); Absolute Eosinophils 0.2 10^3/uL (0-0.7); Absolute Immature Granulocytes 0.1 10^3/uL (0-0.05); Absolute Monocytes 0.7 10^3/uL (0.1-0.6); Absolute Neutrophils 6.4 10^3/uL (1.4-6.5); Hematocrit 24.5 % (39.0-52.0); Hemoglobin 8.4 g/dL (13.0-18.0); INR 1.28; Mean Corp Hgb Conc. 34.3 g/dL (33.0-37.0); Mean Corpuscular Hgb 29.2 pg (27.0-31.0); Mean Corpuscular Volume 85.1 fL (80.0-94.0); Nucleated Red Blood Cells % 0 % (-); PT 15.8 Sec (11.4-14.6); Red Blood Cell Count 2.88 10^6/uL (4.70-6.10); Red Cell Dist. Width 14.9 % (11.5-14.5); White Blood Cell Count 8.5 10^3/uL (4.8-10.8)
[2023-09-19 09:12] LABS: APTT 33.7 Sec (23.4-35.0)
[2023-09-19 09:21] LABS: Mean Platelet Volume 9.8 fL (7.4-10.4); Platelet Count 459 10^3/uL (130-400)
[2023-09-19 09:30] LABS: ALT (SGPT) 44 U/L (0-50); AST (SGOT) 58 U/L (17-59); Albumin 2.6 g/dl (3.5-5.0); Alkaline Phosphatase 102 U/L (38-126); Blood Urea Nitrogen 17 mg/dl (9-20); Calcium 7.9 mg/dl (8.4-10.2); Carbon Dioxide 26 mmol/L (22-30); Chloride 103 mmol/L (98-107); Estimated Creatinine Clearance 57 ml/min; Glucose 117 mg/dl (70-99); Potassium 4.7 mmol/L (3.5-5.1); Sodium 135 mmol/L (135-145); Total Bilirubin 0.5 mg/dl (0.2-1.3); Total Protein 5.8 g/dl (6.3-8.2)
--- NOTE | 2023-09-19 09:48 | W.PN.HOSP.TC ---
Today's Communication/Plan
-
cont IVF
for angio, then podiatry for further plans
Assessment / Plan
Assessment / Plan
73yo M with PMHx of DM, HTN, HLD came with c/o worsening discoloration of R toes. HE was seen by his ticket manager and was sent to ED for possible intervention. Had I&D on 09/05/23 and wound Cx grew S.Aureus. Metabolic acidosis improved. Patient had to
be started on insulin 2/2 poorly controlled blood glucose and extension educator was involved. VascSx did angio on 09/11/23, then podiatry did second debridenemt on 09/11/23. Pending repeated angio on 09/19/23
A/P:
#R lower extremity with third toe gangrene
#RLE tenosynovitis
#PAD
MRI with gas in the tissues
Vanco/Zosyn switched to Ancef/flagyl which has now been transitioned to Unasyn 3 g every 6
Bcx NTD
Wound Cx: MSSA and strep
Podiatry to follow: non viable tissue on I&D
Vascular evaluated status post right lower extremity angiogram
nephro following along-elevated Cr.
Status post ORIF on 09/12 by podiatry with debridement of the infected nonviable tissue. Significant improvement tissue perfusion was noted.
Podiatry correspondence noted-not much improvement in plantar soft tissue. Vascular surgery planning for repeat angiogram 09/18.
Status post left lower extremity ultrasound to assess for possible bypass.
High risk of limb loss due to PAD/Uncontrolled diabetes
# Peripheral arterial disease status post angiogram
Status post lithotripsy right lower extremity/angioplasty
Started on aspirin and continue statin
#HAGMA most likely 2/2 infection - resolved
#RAYMOND on CKD stage 3b
#Mild hyponatremia
#Hypokalemia
Nephro signed off. May need to start prophylactic bicarb prior to angiogram on Monday.
Monitor closely for contrast nephropathy.
Continue to hold metformin, lisinopril
Tolerating appropriate p.o. intake. Can hold off IV fluids.
#Transaminitis
#Elevated alk.phos
most likely 2/2 RLE infection
no abd pain
hepatitis C Ab neg
Resolved
#Anemia of chronic disease with REGGIE complicated by anemia 2/2 CKD
treat infection
IV iron course started
Iron PO upon d/c
Hgb stable
#DM type 2 with circulatory complications/uncontrolled
on Farxiga
Insulin SS, Accuchecks, DM diet
HgbA1c 10.1% - start Lantus 40u qhs and NovoLog 10 units lunch and NovoLog 25 units for breakfast. Patient had teaching for insulin injection.
Counseled patient multiple times about strict glycemic control upon discharge for appropriate wound healing
POC am 125
DM [employer]EM[employer]
#Primary HTN
Cont norvasc and toprol
BP controlled.
#HLD
restart statin
#Nicotine dependency
Nicoderm PRN
#ASCVD
cont BB
DVT ppx hep
Full code
I have spent at least 36min reviewing chart, test results, communication with consultants and direct patient care
Anticipated Discharge: > 48 hours
Subjective/Interval History
-
Date of Service: September 19, 2023
Objective Data
-
Labs:
Laboratory Results
09/19/23
08:42
WBC 8.5
Hgb 8.4 L
Hct 24.5 L
Plt Count 459 H
PT 15.8 H
INR 1.28
APTT 33.7
Sodium 135
Potassium 4.7
Chloride 103
Carbon Dioxide 26
BUN 17
Creatinine 1.4 H
Glucose 117 H
Calcium 7.9 L
Total Bilirubin 0.5
AST 58
ALT 44
Alkaline Phosphatase 102
Vital Signs:
Vital Signs
Temp Pulse Resp BP Pulse Ox
98.9 F 78 16 133/66 96
09/19/23 07:00 09/19/23 07:00 09/19/23 07:00 09/19/23 07:00 09/19/23 07:00
I&O
09/18/23 09/19/23 09/20/23
06:59 06:59 06:59
Intake Total 2099 / 2099 3760 / 3760
Output Total 1250 / 1250 1700 / 1700
Balance 850 / 850 2059
Review of Systems
-
All other systems: Reviewed and negative
Constitutional: Reports No Symptoms
Physical Exam
-
General: Well Developed and Well Nourished
HEENT: Normocephalic
Respiratory: Clear to Auscultation
GI: Soft, Nontender and Nondistended
Genito-urinary: No Costovertebral Tender
Musculoskeletal: No Edema and Other (R foot in dressing, drainage seem from wound on lateral heel)
Skin: Warm
Neuro: Awake, Alert, Oriented and AO x 3
Psych: Calm
--- NOTE | 2023-09-19 11:21 | PTCARENOTE ---
Patient educated x2 regarding the use of surgical shoe OOB. Patient OOB to toilet with urgent BM. Surgical shoe offered once patient was sitting on the toilet. Patient declined. Assessment of needs ongoing.
[2023-09-19 13:03] LABS: Glucose - Point of Care 115 mg/dl (70-99)
--- NOTE | 2023-09-19 15:24 | W.PN.NEPH.PH ---
Today's Communication / Plan
-
- plan for angiogram today
Assessment/Plan
-
IMP:
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
HAGMA
RAYMOND with CKD stage 3b baseline cr 1.4-1.7
Transaminitis
Anemia of chronic disease with REGGIE complicated by anemia 2/2 CKD
DM type 2 with circulatory complications
HLD
Nicotine dependency
ASCVD
Hypoalbuminemia
Plan:
A/w right foot gangrene and s/p i&d with 3rd toe amp on 09/04
RAYMOND-cr improving to 1.4, at baseline, non oliguric
KUS with no hydro, normal size kidneys, u pcr 700MG/MG OF CR
holding Farxiga, ACEI and metformin
BP are stable, meds with holding parameters
anemia-follow h/h, fe def, ON IV fe COURSE
renal dose meds, avoid nephrotoxins
hyponatremia resolved, Na 135 most recently
Status post arteriogram on 09/11/2023 with PCI and intravascular lithotripsy
patient recieved contrast ppx prior to angiogram
-
-
Date of Service: September 19, 2023
CC / HPI / ROS
-
Chief Complaint:
RAYMOND
History of Present Illness:
Cr slightly better at 1.4, baseline likely 1.5-1.7
BP stable
no fever
Status post a gram with intervention on 09/11/2023 for right lower extremity critical limb ischemia
Sodium at 135
Review of Systems:
no cp or sob
nonoliguric
feels well
Labs
-
Labs:
WBC 8.5 10^3/uL (4.8-10.8) 09/19/23 08:42
RBC 2.88 10^6/uL (4.70-6.10) L 09/19/23 08:42
Hgb 8.4 g/dL (13.0-18.0) L 09/19/23 08:42
Hct 24.5 % (39.0-52.0) L 09/19/23 08:42
Plt Count 459 10^3/uL (130-400) H 09/19/23 08:42
Sodium 135 mmol/L (135-145) 08 08:42
Potassium 4.7 mmol/L (3.5-5.1) 09/19/23 08:42
Chloride 103 mmol/L (98-107) 09/19/23 08:42
Carbon Dioxide 26 mmol/L (22-30) 09/19/23 08:42
BUN 17 mg/dl (9-20) 09/19/23 08:42
Creatinine 1.4 mg/dL (0.7-1.3) H 09/19/23 08:42
eGFR 53.40 09/19/23 08:42
Glucose 117 mg/dl (70-99) H 09/19/23 08:42
Calcium 7.9 mg/dl (8.4-10.2) L 09/19/23 08:42
Albumin 2.6 g/dl (3.5-5.0) L 09/19/23 08:42
Physical Exam
-
Vital Signs:
Vital Signs
Temp Pulse Resp BP Pulse Ox
98.9 F 79 12 143/62 94
09/19/23 14:19 09/19/23 14:19 09/19/23 14:19 09/19/23 14:19 09/19/23 14:19
Cardiovascular:: Regular rate and rhythm
Respiratory:: Bilateral: CTA
Lung Excursion:: Normal
Abdomen:: Nontender and Soft
Bowel Sounds:: Normal
Extremity Edema:: None: Right: (wrapped) and None: Left:
Caraballo Catheter: No
--- NOTE | 2023-09-19 15:45 | CM ---
CM reviewed chart, patient for angiogram today. Patient remains on IV antibiotics. CM will continue to follow for all discharge planning needs.
Plan; home no needs vs VN/wound care.
[2023-09-19 15:48] LABS: Glucose - Point of Care 96 mg/dl (70-99)
--- NOTE | 2023-09-19 17:32 | W.SUR.POST ---
Surgical Immediate Post Op
Note
Pre Op Diagnosis: Critical limb threatening ischemia
Post Op Diagnosis: Critical limb threatening ischemia
Procedure Performed: RIGHT lower extremity angiography and angioplasty
Primary Surgeon: Speedy Caraballo MD
Secondary Surgeons: Pawel Rivas MD, PhD
Anesthesia: Per Anesthesia
Estimated Blood Loss: 10 cc
Fluids: Per Anesthesia
Drains/Shunts: None
Specimens/Cultures: None
Doppler/Duplex/Angio (Y/N): Yes
Complications: None
Operative Findings: RIGHT lower extremity angiogram via RIGHT SFA puncture and 5 Fr sheath, diagnostic angiogram with distal PT occlusion, 2.5 mm x 80 mm shockwave angioplasty to the distal PT, 3 mm x 60 mm balloon angioplasty to the TP trunk,
completion angio with intact pedal arch, +doppler DP and PT post op. Right foot dressing changed.
Plan:
- Plavix load now and continue daily 75mg
- 24 hr groin checks
- Continue local wound care
- Will discuss management of chronic right foot wound with Podiatry
- Vascular Surgery will continue to follow along
[2023-09-19] MEDS: NSS IV (17:40)
[2023-09-19 17:58] LABS: Glucose - Point of Care 110 mg/dl (70-99)
--- NOTE | 2023-09-19 18:00 | OR.RPT ---
Operative Report
Operative Report
Date of Operation: 09/19/2023
Pre Op Diagnosis: Critical limb threatening ischemia with right foot wound and associated infection
Post Op Diagnosis: Critical limb threatening ischemia with right foot wound and associated infection
Procedure:
1.) Intravascular lithotripsy to right distal posterior tibial artery (2.5 mm x 80 mm E8 shockwave balloon)
2.) Balloon angioplasty to right tibioperoneal trunk (3.5 mm x 60 mm angioplasty balloon
3.) Diagnostic right lower extremity arteriogram
4.) Ultrasound-guided percutaneous ANTEGRADE access to the proximal right superficial femoral artery
Surgeon: Speedy Caraballo III, MD
Regional Training Manager: Pawel Rivas MD PhD PGY-6
Anesthesia: Sedation with local
Fluoroscopy:
25.3 min
48 mGy
9.63 Gy.cm2
Complications: None
Estimated Blood Loss: Less than 20 cc
History and Indications for Procedure: 73-year-old male with critical limb threatening ischemia manifested by nonhealing right foot wound and associated infection.
Procedure in Detail: Flaquito Jamil was correctly identified and placed supine on the operating table. After adequate induction of anesthesia the bilateral groins were prepped and draped in the usual sterile fashion. A timeout was performed with the
nursing and anesthesia staff confirming the patient's identity as well as the nature and laterality of the procedure.
The right common femoral artery and proximal superficial femoral artery were identified under ultrasound guidance. The artery was patent. The superior and inferior aspects of the femoral head were identified with radiographic guidance and marked at
the skin level. The proposed puncture site was infiltrated with local anesthesia. We saved a copy of the ultrasound image to the medical record. Under ultrasound guidance we accessed the right proximal superficial femoral artery with a micropuncture
needle and upsized to a 5 Fr sheath over a Bentson wire.
A diagnostic right lower extremity arteriogram was then performed which demonstrated the following:
RIGHT LOWER EXTREMITY:
Superficial femoral artery: Patent. No significant stenosis identified
Popliteal artery: Patent. Focal areas of mild stenosis above the knee. No significant stenosis identified
Anterior tibial artery: Patent stump but occluded thereafter. Reconstitution of the dorsalis pedis is identified in the foot via collaterals
Tibioperoneal trunk: Patent. Some luminal irregularity present with questionable stenosis identified
Peroneal artery: Patent with no significant stenosis identified
Posterior tibial artery: Patent. Occluded behind the medial malleolus. Distal reconstitution of plantar branches identified
ENDOVASCULAR INTERVENTION: Systemic heparin was administered. Exchanged out for a 5 Fr 23 cm sheath over a Launchups wire. Selected the tibioperoneal trunk and then the posterior tibial artery under roadmap guidance with Quickcross catheter and
glidewire. The distal posterior tibial occlusion was crossed with a Quickcross and Glidewire. The wire and catheter were advanced into one of the plantar branches and subtraction angio confirmed proper position in the true lumen. Exchanged out for a
hydrophilic tip 0.014 wire. Due to the calcified nature of the arterial disease and in an effort to modify the calcium to achieve maximum luminal gain with endovascular intervention I elected to proceed with intravascular lithotripsy. A 2.5 mm x 80
mm E8 shockwave balloon was placed across the stenosis under roadmap guidance. Alternating rounds of lithotripsy pulse delivery at sub-nominal pressure and angioplasty at nominal pressure was performed across the stenosis. In between rounds of pulse
delivery and angioplasty the balloon was deflated and repositioned under roadmap guidance. All 400 pulses were delivered.
I performed balloon angioplasty on the tibioperoneal trunk under roadmap guidance using a 3.5 mm x 60 mm angioplasty balloon.
COMPLETION ARTERIOGRAM: Excellent technical result. Brisk flow through the tibioperoneal trunk. There was a focal nonflow limiting dissection in the proximal tibioperoneal trunk identified. The peroneal and posterior tibial arteries were widely
patent with brisk flow. The posterior tibial artery behind the ankle was patent with no residual stenosis identified. Outflow through plantar branches was identified. The pedal arch was patent and reconstituted the dorsalis pedis. Significant
improvement overall compared to pretreatment.
Satisfied with this result we concluded the procedure. Protamine was administered. The sheath was removed and direct manual pressure was held over the puncture site. Hemostasis was achieved. A sterile dressing was applied.
The patient tolerated the procedure well and was taken to the recovery area in stable condition.
Attestation: I was present and responsible for the entire procedure.
Signed:
Speedy Caraballo III, MD
[facility]
[phone] (cell)
[2023-09-19] MEDS: PLAVIX 300 MG PO (18:10)
--- NOTE | 2023-09-19 19:00 | PTCARENOTE ---
Pt received from PACU back to [id number].
[2023-09-19] MEDS: LIPITOR 40 MG PO (19:40)
[2023-09-19 21:18] LABS: Glucose - Point of Care 102 mg/dl (70-99)
[2023-09-19] MEDS: LANTUS 0.4 UNITS SC (21:32)
[2023-09-19] MEDS: TYLENOL 500 MG PO (22:58)
[2023-09-20] MEDS: UNASYN IV ×5 (00:44→23:17)
[2023-09-20 03:57] VITALS: BP 125/61
[2023-09-20 07:01] VITALS: BP 125/60
[2023-09-20 07:21] LABS: Glucose - Point of Care 75 mg/dl (70-99)
--- NOTE | 2023-09-20 08:35 | W.PN.VS ---
Addendum entered and electronically signed by DARRIAN Ocampo 09/20/23 11:08:
typo ASA dose of 81mg PO daily
Original Note:
Today's Communication / Plan
-
See below.
Assessment/Plan
-
POD 9 Intravascular lithotripsy to right posterior tibial artery and extending into tibioperoneal trunk (3 mm x 80 mm E8 shockwave balloon), Intravascular lithotripsy to right popliteal artery (6 mm x 60 mm M5+ shockwave balloon), Balloon
angioplasty to distal posterior tibial artery behind the medial malleolus (2 mm x 40 mm balloon)
POD 1 Intravascular lithotripsy to right distal posterior tibial artery (2.5 mm x 80 mm E8 shockwave balloon). Balloon angioplasty to right tibioperoneal trunk (3.5 mm x 60 mm angioplasty balloon
Plan:
-Continue DAPT of aspirin 1 mg and Plavix 75 mg p.o. daily
-Will place a follow-up ultrasound and office appointment in discharge instructions
-Can remove groin dressing later this afternoon
-We will sign off please call with questions or concerns
Subjective Data
-
Date of Service: September 20, 2023
Patient seen and examined at bedside, resting comfortably eating breakfast. Denies pain or swelling at puncture site. Denies nausea, vomiting, fever, and chills. Reports overall he is feeling well today.
Objective Data
-
Vital Signs
Temp Pulse Resp BP Pulse Ox
99.2 F 81 16 125/60 96
09/20/23 07:01 09/20/23 07:01 09/20/23 07:01 09/20/23 07:01 09/20/23 07:01
Intake and Output
09/19/23 09/20/23 09/21/23
06:59 06:59 06:59
Intake Total 3760 / 3760 1210 / 1210
Output Total 1700 / 1700 2230 / 2230
Balance 2059 -1020 / -1020
Intake:
Oral fluids 2219 / 2219 240 / 240
IV fluids (Total) 1300 / 1300 610 / 610
Normosol 50 / 50
IV piggybacks 240 / 240 360 / 360
Output:
Urine, Voided 0 / 1700 2229
Other:
Number of approximated MODERATE 1
amounts of urine
Calcium 7.9 mg/dl (8.4-10.2) L 09/19/23 08:42
Magnesium 1.9 mg/dl (1.6-2.3) 09/07/23 08:22
Total Bilirubin 0.5 mg/dl (0.2-1.3) 09/19/23 08:42
Direct Bilirubin 0.2 mg/dl (0.0-0.4) 09/09/23 07:02
AST 58 U/L (17-59) 09/19/23 08:42
ALT 44 U/L (0-50) 09/19/23 08:42
Alkaline Phosphatase 102 U/L (38-126) 09/19/23 08:42
Total Protein 5.8 g/dl (6.3-8.2) L 09/19/23 08:42
Albumin 2.6 g/dl (3.5-5.0) L 09/19/23 08:42
Physical Exam
-
AAOx3
No tachypnea on room air
No tachycardia
Right groin site clean, dry, intact, soft, no drainage
Right foot wrapped by podiatry warm and appears well-perfused
[2023-09-20] MEDS: NOVOLOG FLEXPEN SC (08:40)
[2023-09-20] MEDS: NOVOLOG FLEXPEN-MODERATE RESISTANCE SC ×2 (08:40→18:09)
[2023-09-20] MEDS: VITAMIN C 1000 MG PO (08:41)
[2023-09-20] MEDS: LOW STRENGTH ASPIRIN 81 MG PO (08:41)
[2023-09-20] MEDS: HEPARIN 5000 UNITS SC ×2 (08:41→20:01)
[2023-09-20] MEDS: PLAVIX 75 MG PO (08:41)
[2023-09-20] MEDS: NORVASC 2.5 MG PO (08:41)
[2023-09-20] MEDS: TOPROL XL 50 MG PO ×2 (08:42→20:02)
--- NOTE | 2023-09-20 08:50 | PN.DE.MGMTRT ---
Insulin Management
- -
09/20/2023: Diabetes Management F/U:
Patient admitted with worsening discoloration of Right foot toes due to 3rd toe gangrene and RLE tenosynovitis. MRI noted for gas in the tissues
PMH: ASCVD, HTN, HLD, CKD IIIb, Anemia of chronic disease with REGGIE complicated by anemia 2/2 CKD, Nicotine dependency and T2DM. Was taking Metformin 1000 mg BID and Farxiga 10mg daily prior to admission. A1C 10.1%, Cr 2.6, eGFR 25.41.
States he has had diabetes 10 to 15 years but never tested his glucose. Discussed current A1C and glucose trend, pt made aware that insulin is the only safe option for mgt, with uptrending Cr. Pt was hesitant at first stating that he was hoping he
wouldn't need insulin because he lives on a fixed budget but was agreeable when he learned that insurance will likely cover most of the cost of his insulin especially if he didn't have any issues with coverage of Farxiga.
09/06 Instructed patient on prep and injection technique for pre filled pens with fair return demonstration. Provided home pen needles, nursing to continue reinforcing self inject at all meals. Instructed on action of both Lantus and NovoLog and
injection sites. Verbalized understanding.
Provided Contour next glucose monitor and instructed with good return demonstration.
Pt awake, A/Ox3, sitting up in bed, offers no complaints, able to discuss diabetes mgt. States he feels confident with giving himself injections.
Reassured him again that we would work to have a routine established as far as doses and times to take injections.
POD #15 s/p I& D of right foot w/amputation of 3rd toe and metatarsal head.
POD # 9 s/p angiogram with lithotripsy; POD# 7 further debridement right foot.
Pt was NPO for most of day yesterday, Glucose stable and in range of low normal without hypoglycemia
Premeal 96 to 131, fasting 76 this AM. Cr improved 1.4 today, eGFR 53.40
Will make no changes to current regimen: NovoLog 25 units at breakfast and dinner, and 15 units at lunch, and Lantus 40 units @ HS.
Farxiga 10 mg daily on HOLD due to multiple OR trips. Will closely monitor glucose and adjust insulin if necessary
Diabetes History
- -
Type of Diabetes: 2 requiring insulin
Pre-Admission Diabetes Regimen
09/19/23
08:42
Creatinine 1.4 H
Lab Results
Hemoglobin A1c 10.1 % (4.0-5.6) H 09/05/23 08:10
Insulin Pump Settings
IP Diabetes Regimen
09/19/23 09/19/23 09/19/23
08:42 13:01 15:37
Glucose 117 H
POC Glucose 115 H 96
09/19/23 09/19/23 09/20/23
17:57 21:07 07:21
Glucose
POC Glucose 110 H 102 H 75
Patient Education
[2023-09-20 09:32] LABS: % Basophils 0.6 % (0-2); % Immature Granulocytes 0.5 % (0-0.5); % Lymphocytes 9.9 % (20.5-51.1); % Monocytes 6.7 % (1.7-9.3); % Neutrophils 81.3 % (42.2-75.2); Absolute Basophils 0.1 10^3/uL (0-0.2); Absolute Eosinophils 0.1 10^3/uL (0-0.7); Absolute Lymphocytes 0.9 10^3/uL (1.2-3.4); Absolute Monocytes 0.6 10^3/uL (0.1-0.6); Absolute Neutrophils 7.1 10^3/uL (1.4-6.5); Hematocrit 25.5 % (39.0-52.0); Hemoglobin 8.3 g/dL (13.0-18.0); Mean Corp Hgb Conc. 32.5 g/dL (33.0-37.0); Mean Corpuscular Hgb 27.9 pg (27.0-31.0); Mean Corpuscular Volume 85.9 fL (80.0-94.0); Mean Platelet Volume 9.1 fL (7.4-10.4); Nucleated Red Blood Cells % 0 % (-); Platelet Count 375 10^3/uL (130-400); Red Blood Cell Count 2.97 10^6/uL (4.70-6.10); Red Cell Dist. Width 14.9 % (11.5-14.5); White Blood Cell Count 8.7 10^3/uL (4.8-10.8)
[2023-09-20 09:39] LABS: APTT 34.4 Sec (23.4-35.0); INR 1.33; PT 16.6 Sec (11.4-14.6)
[2023-09-20 10:19] LABS: ALT (SGPT) 40 U/L (0-50); AST (SGOT) 44 U/L (17-59); Albumin 2.7 g/dl (3.5-5.0); Alkaline Phosphatase 107 U/L (38-126); Blood Urea Nitrogen 15 mg/dl (9-20); Carbon Dioxide 24 mmol/L (22-30); Chloride 104 mmol/L (98-107); Estimated Creatinine Clearance 50 ml/min; Glucose 152 mg/dl (70-99); Potassium 4.7 mmol/L (3.5-5.1); Sodium 136 mmol/L (135-145); Total Bilirubin 0.5 mg/dl (0.2-1.3); Total Protein 5.8 g/dl (6.3-8.2)
--- NOTE | 2023-09-20 11:07 | W.PN.HOSP.TC ---
Today's Communication/Plan
-
Pending final podiatry and ID recommendations
Assessment / Plan
Assessment / Plan
73yo M with PMHx of DM, HTN, HLD came with c/o worsening discoloration of R toes. HE was seen by his assistant restaurant general manager and was sent to ED for possible intervention. Had I&D on 09/05/23 and wound Cx grew S.Aureus. Metabolic acidosis improved. Patient had to
be started on insulin 2/2 poorly controlled blood glucose and natural resources extension educator was involved. VascSx did angio on 09/11/23, then podiatry did second debridement on 09/11/23. Had repeated angio on 09/19/23 with good results
A/P:
#R lower extremity with third toe gangrene
#RLE tenosynovitis
#PAD
MRI with gas in the tissues
Vanco/Zosyn switched to Ancef/flagyl which has now been transitioned to Unasyn 3 g every 6
Bcx NTD
Wound Cx: MSSA and strep
Podiatry to follow: non viable tissue on I&D
Vascular evaluated status post right lower extremity angiogram
nephro following along-elevated Cr.
Status post ORIF on 09/12 by podiatry with debridement of the infected nonviable tissue. Significant improvement tissue perfusion was noted.
Podiatry correspondence noted-not much improvement in plantar soft tissue. Vascular surgery planning for repeat angiogram 09/18.
Status post left lower extremity ultrasound to assess for possible bypass.
High risk of limb loss due to PAD/Uncontrolled diabetes
# Peripheral arterial disease status post angiogram
Status post lithotripsy right lower extremity/angioplasty
Started on DAPT and continue statin
Vascular to follow in the office
#HAGMA most likely 2/2 infection - resolved
#RAYMOND on CKD stage 3b
#Mild hyponatremia
#Hypokalemia
Nephro signed off
#Transaminitis
#Elevated alk.phos
most likely 2/2 RLE infection
no abd pain
hepatitis C Ab neg
Resolved
#Anemia of chronic disease with REGGIE complicated by anemia 2/2 CKD
treat infection
IV iron course started
Iron PO upon d/c
Hgb stable
#DM type 2 with circulatory complications/uncontrolled
on Farxiga
Insulin SS, Accuchecks, DM diet
HgbA1c 10.1% - start Lantus 40u qhs and NovoLog 10 units lunch and NovoLog 25 units for breakfast. Patient had teaching for insulin injection.
Counseled patient multiple times about strict glycemic control upon discharge for appropriate wound healing
POC am 125
DM TRUANT OFFICER provided teaching and home glucose monitor
#Primary HTN
Cont norvasc and toprol
BP controlled.
#HLD
restart statin
#Nicotine dependency
Nicoderm PRN
#ASCVD
cont BB
DVT ppx hep
Full code
I have spent at least 36min reviewing chart, test results, communication with consultants and direct patient care
Anticipated Discharge: > 48 hours
Subjective/Interval History
-
Date of Service: September 20, 2023
Objective Data
-
Labs:
Laboratory Results
09/20/23
09:16
WBC 8.7
Hgb 8.3 L
Hct 25.5 L
Plt Count 375
PT 16.6 H
INR 1.33
APTT 34.4
Sodium 136
Potassium 4.7
Chloride 104
Carbon Dioxide 24
BUN 15
Creatinine 1.6 H
Glucose 152 H
Calcium 8.0 L
Total Bilirubin 0.5
AST 44
ALT 40
Alkaline Phosphatase 107
Vital Signs:
Vital Signs
Temp Pulse Resp BP Pulse Ox
99.2 F 81 16 125/60 96
09/20/23 07:01 09/20/23 08:41 09/20/23 07:01 09/20/23 08:41 09/20/23 07:01
I&O
09/19/23 09/20/23 09/21/23
06:59 06:59 06:59
Intake Total 3760 / 3760 1210 / 1210
Output Total 1700 / 1700 2230 / 2230
Balance 2059 / 2059 -1020 / -1020
Review of Systems
-
History Source: Patient
All other systems: Reviewed and negative
Physical Exam
-
General: Well Developed, Well Nourished and No Apparent Distress
HEENT: Normocephalic and Atraumatic
Respiratory: Clear to Auscultation
GI: Soft, Nontender and Nondistended
Genito-urinary: No Costovertebral Tender
Musculoskeletal: No Clubbing, No Cyanosis and No Edema
Skin: Warm
Neuro: Awake, Alert, Oriented and AO x 3
Psych: Calm
[2023-09-20 11:16] LABS: Glucose - Point of Care 196 mg/dl (70-99)
[2023-09-20] MEDS: NOVOLOG FLEXPEN 15 UNITS SC (12:02)
[2023-09-20] MEDS: NOVOLOG FLEXPEN-MODERATE RESISTANCE 1 UNITS SC (12:03)
--- NOTE | 2023-09-20 12:33 | W.PN.POD ---
Today's Communication
Today's Communication
Schedule right TMA for tomorrow afternoon
Assessment / Plan
-
Right LE cellulitis with 3rd toe gangrene
-Gas in plantar soft tissue based on MRI and amputation of right 3rd toe, met head performed 09/04
-09/09 Angioplasty showed completely occluded right PT artery. BK shockwave lithotripsy performed to PT artery extending to tibioperoneal trunk
-09/12 2nd debridement of remaining devitalized tissue, including remaining lesser toes and metatarsal heads. hallux left in tact. Area of soft tissue debridement at medial first MTPJ now dry and non viable. Improvement to perfusion noted in dorsal
soft tissue but areas of medial plantar skin appear ischemic.
One day status post intravascular lithotripsy to right distal PT artery and balloon angioplasty to right tibioperoneal trunk.
With successful increase in distal tissue perfusion, will schedule TMA tomorrow afternoon. Patient understands that there is a possibility the surgical site still may not heel and would require BKA. Given uncontrolled diabetes with peripheral
neuropathy and peripheral arterial disease, he is at high risk for limb loss.
DM uncontrolled with peripheral neuropathy
HgbA1c 10.1
Leukocytosis now WNL
-continue antibiotics as per ID
-OR cultured MSSA, Strep species, Bacteroides, Finegoldia
Subjective
Objective
Temp Pulse Resp BP Pulse Ox
99.2 F 81 16 125/60 96
09/20/23 07:01 09/20/23 08:41 09/20/23 07:01 09/20/23 08:41 09/20/23 07:01
09/20/23 09:16
09/20/23 09:16
Vital Signs and Lab results were reviewed.
Physical Exam
Physical Exam
Increased perfusion noted at distal surgical site with well demarcated medial skin dry necrosis. medial heel packed open. No drainage or malodor noted.
--- NOTE | 2023-09-20 13:40 | W.PN.ID1 ---
Date of Service
Date of Service: September 20, 2023
Today's Communication
Continue antibiotics. Await TMA.
Assessment / Plan
Right foot gangrene
- s/p I&D and resection of third toe 09/05/2023
- s/p revision 09/12
Leukocytosis trending down
RAYMOND on CKD
Transaminitis
Elevated ESR and CRP
CAD
HTN
Dyslipidemia
DM type II (uncontrolled; A1c = 10.1)
Nephrolithiasis
Recommendations:
OR cx: MSSA, Strep species, Bacteroides, Finegoldia
Continue with Unasyn (d#16 abx)
Patient's status post angiography and revascularization.
Patient now for tentative TMA.
Continue with tight glucose control.
Given uncontrolled diabetes along with neuropathy, patient is at high risk for limb loss.
����������������������������������������������������������
Chief Complaint
-: Other (Right foot gangrene)
Subjective / Review of Systems
Review of Systems: No Fever and No Chills
Vital Signs / Physical Exam
Vital Signs
Vital Signs
Temp Pulse Resp BP Pulse Ox
99.2 F 81 16 125/60 98
09/20/23 07:01 09/20/23 08:41 09/20/23 07:01 09/20/23 08:41 09/20/23 08:18
Physical Exam
Constitutional: No Acute Distress
Eyes: Sclera Anicteric
Cardiovascular: S1/S2; Negative S3/S4
Pulmonary: Non Labored; Negative Wheezes
Gastrointestinal: Non Distended
Wound: Other (right foot dressing dry and intact. Small amount of bloody strikethrough. No erythema extending up leg.)
Neurological: Awake and Alert
Psychological: Calm
Objective Data
Lab Data
Lab Results
09/20/23 09:16
08/07/24 09:16
ESR 105 mm/hour (0-20) H 09/09/23 07:02
PT 16.6 Sec (11.4-14.6) H 09/20/23 09:16
INR 1.33 09/20/23 09:16
APTT 34.4 Sec (23.4-35.0) 09/20/23 09:16
Estimated Creat Clear 50 ml/min 09/20/23 09:16
Lactic Acid 0.9 mmol/L (0.7-2.0) 09/05/23 11:13
Total Bilirubin 0.5 mg/dl (0.2-1.3) 09/20/23 09:16
AST 44 U/L (17-59) 09/20/23 09:16
ALT 40 U/L (0-50) 09/20/23 09:16
Alkaline Phosphatase 107 U/L (38-126) 09/20/23 09:16
C-Reactive Protein 206.40 mg/L (0.0-10.00) H 09/09/23 07:02
Most recent labs reviewed.
Micro Results:
09/05/23 19:39 Blood Culture - Final
Blood/Venous No Growth - Final Report
09/05/23 19:06 Blood Culture - Final
Blood/Venous No Growth - Final Report
09/05/23 16:09 Wound Culture - Final
Foot - Right S aureus-Methicillin Sensitive
Gram Stain - Final
09/05/23 16:11 Wound Culture - Final
Foot - Right S aureus-Methicillin Sensitive
Streptococcus species
Gram Stain - Final
09/05/23 Unknown Anaerobic Culture - Final
Foot - Right Bacteroides thetaiotaomicrom
Finegoldia magna
09/05/23 Unknown Anaerobic Culture - Final
Foot - Right Bacteroides thetaiotaomicrom
Finegoldia magna
09/04/23 13:03 Blood Culture - Final
Blood/Venous No Growth - Final Report
09/04/23 19:50 MRSA Screen - Final
Nose No Methicillin Resistant Staphylococcus aureus isolated.
Imaging:
09/05/2023 Plain film right foot: There has been interval resection of the right third digit at the level of the distal metatarsal bone. There is plantar soft tissue area which appears to be mainly in the region of the second and third metatarsal
bones. There is also a small amount of air off the posterior and superior margin of the calcaneus, anterior to the distal Achilles tendon, unchanged from earlier radiographs. Please see full dictation for additional detail.
09/05/2023 MRI right lower extremity: Numerous rounded foci of decreased signal intensity within the soft tissues of the distal right foot consistent with foci of soft tissue air. There is also concern for foci of air into the third metatarsal bone
and proximal phalanx of the right third toe. Please see full dictation for additional detail.
--- NOTE | 2023-09-20 14:14 | CM ---
CM reviewed chart, patient for TMA tomorrow. Patient seen bedside, reports no needs at this time. CM will follow for all discharge planning needs for further recommendations.
Plan; watch for VN/wound care needs after procedure.
--- NOTE | 2023-09-20 14:37 | W.PN.NEPH.PH ---
Today's Communication / Plan
-
Follow kidney function closely and monitor for contrast nephropathy
Assessment/Plan
-
IMP:
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
HAGMA
RAYMOND with CKD stage 3b baseline cr 1.4-1.7
Transaminitis
Anemia of chronic disease with REGGIE complicated by anemia 2/2 CKD
DM type 2 with circulatory complications
HLD
Nicotine dependency
ASCVD
Hypoalbuminemia
Plan:
A/w right foot gangrene and s/p i&d with 3rd toe amp on 09/04
RAYMOND-cr up to 1.6, at baseline, non oliguric
KUS with no hydro, normal size kidneys, u pcr 700MG/MG OF CR
holding Farxiga, ACEI and metformin
BP are stable, meds with holding parameters
anemia-follow h/h, fe def, ON IV fe COURSE
renal dose meds, avoid nephrotoxins
hyponatremia resolved, Na 136
Status post arteriogram on 09/11/2023 with PCI and intravascular lithotripsy and on 09/18
-
-
Date of Service: September 20, 2023
CC / HPI / ROS
-
Chief Complaint:
RAYMOND
History of Present Illness:
Cr slightly better at 1.6 baseline likely 1.5-1.7
BP stable
no fever
Status post a gram with intervention on 09/11/2023 for right lower extremity critical limb ischemia
Sodium at 135
Review of Systems:
no cp or sob
nonoliguric
feels well
Labs
-
Labs:
WBC 8.7 10^3/uL (4.8-10.8) 09/20/23 09:16
RBC 2.97 10^6/uL (4.70-6.10) L 09/20/23 09:16
Hgb 8.3 g/dL (13.0-18.0) L 09/20/23 09:16
Hct 25.5 % (39.0-52.0) L 09/20/23 09:16
Plt Count 375 10^3/uL (130-400) 09/20/23 09:16
Sodium 136 mmol/L (135-145) 09/20/23 09:16
Potassium 4.7 mmol/L (3.5-5.1) 09/20/23 09:16
Chloride 104 mmol/L (98-107) 09/20/23 09:16
Carbon Dioxide 24 mmol/L (22-30) 09/20/23 09:16
BUN 15 mg/dl (9-20) 09/20/23 09:16
Creatinine 1.6 mg/dL (0.7-1.3) H 09/20/23 09:16
eGFR 45.50 09/20/23 09:16
Glucose 152 mg/dl (70-99) H 09/20/23 09:16
Calcium 8.0 mg/dl (8.4-10.2) L 09/20/23 09:16
Albumin 2.7 g/dl (3.5-5.0) L 09/20/23 09:16
Physical Exam
-
Vital Signs:
Vital Signs
Temp Pulse Resp BP Pulse Ox
99.2 F 81 16 125/60 98
09/20/23 07:01 09/20/23 08:41 09/20/23 07:01 09/20/23 08:41 09/20/23 08:18
Cardiovascular:: Regular rate and rhythm
Respiratory:: Bilateral: CTA
Lung Excursion:: Normal
Abdomen:: Nontender and Soft
Bowel Sounds:: Normal
Extremity Edema:: None: Right: (wrapped) and None: Left:
Caraballo Catheter: No
[2023-09-20 15:43] VITALS: BP 128/60
[2023-09-20 16:45] LABS: Glucose - Point of Care 130 mg/dl (70-99)
[2023-09-20] MEDS: NOVOLOG FLEXPEN 25 UNITS SC (18:08)
[2023-09-20] MEDS: LIPITOR 40 MG PO (20:01)
[2023-09-20 21:19] LABS: Glucose - Point of Care 121 mg/dl (70-99)
[2023-09-20] MEDS: LANTUS 0.4 UNITS SC (21:46)
[2023-09-20 23:00] VITALS: BP 123/55
[2023-09-20 23:13] LABS: Glucose - Point of Care 78 mg/dl (70-99)
[2023-09-21] VITALS (16 sets, daily range): BP systolic 86–144; BP diastolic 49–73
[2023-09-21 05:59] LABS: Glucose - Point of Care 127 mg/dl (70-99)
[2023-09-21] MEDS: NOVOLOG FLEXPEN SC ×2 (06:07→12:10)
[2023-09-21] MEDS: UNASYN IV ×4 (06:08→23:40)
[2023-09-21] MEDS: NOVOLOG FLEXPEN-MODERATE RESISTANCE SC ×3 (06:08→16:01)
[2023-09-21 07:17] LABS: Blood Urea Nitrogen 17 mg/dl (9-20); Calcium 8.3 mg/dl (8.4-10.2); Carbon Dioxide 23 mmol/L (22-30); Chloride 105 mmol/L (98-107); Estimated Creatinine Clearance 44 ml/min; Glucose 105 mg/dl (70-99); Potassium 4.6 mmol/L (3.5-5.1); Sodium 136 mmol/L (135-145)
--- NOTE | 2023-09-21 08:39 | PN.DE.MGMTRT ---
Insulin Management
- -
09/21/2023: Diabetes Management F/U:
Patient admitted with worsening discoloration of Right foot toes due to 3rd toe gangrene and RLE tenosynovitis. MRI noted for gas in the tissues
PMH: ASCVD, HTN, HLD, CKD IIIb, Anemia of chronic disease with REGGIE complicated by anemia 2/2 CKD, Nicotine dependency and T2DM. Was taking Metformin 1000 mg BID and Farxiga 10mg daily prior to admission. A1C 10.1%, Cr 2.6, eGFR 25.41.
States he has had diabetes 10 to 15 years but never tested his glucose. Discussed current A1C and glucose trend, pt made aware that insulin is the only safe option for mgt, with uptrending Cr. Pt was hesitant at first stating that he was hoping he
wouldn't need insulin because he lives on a fixed budget but was agreeable when he learned that insurance will likely cover most of the cost of his insulin especially if he didn't have any issues with coverage of Farxiga.
09/06 Instructed patient on prep and injection technique for pre filled pens with fair return demonstration. Provided home pen needles, nursing to continue reinforcing self inject at all meals. Instructed on action of both Lantus and NovoLog and
injection sites. Verbalized understanding.
Provided Contour next glucose monitor and instructed with good return demonstration.
Pt awake, A/Ox3, sitting up in bed, offers no complaints, able to discuss diabetes mgt. States he feels confident with giving himself injections.
Reassured him again that we would work to have a routine established as far as doses and times to take injections.
POD #16 s/p I& D of right foot w/amputation of 3rd toe and metatarsal head.
POD # 10 s/p angiogram with lithotripsy; POD# 8 further debridement right foot.
Pt NPO for Schedule right TMA today. Glucose stable and in range of low normal without hypoglycemia
09/19 Premeal 75 to 196, fasting 105 this AM. Cr 1.8 today, eGFR 39.50
Will make no changes to current regimen: NovoLog 25 units at breakfast and dinner, and 15 units at lunch, and Lantus 40 units @ HS.
Farxiga 10 mg daily on HOLD due to frequent OR trips. Use corrective insulin while NPO.
Will closely monitor glucose and adjust insulin if necessary
Diabetes History
- -
Type of Diabetes: 2 requiring insulin
Pre-Admission Diabetes Regimen
09/20/23 09/21/23
09:16 06:13
Creatinine 1.6 H 1.8 H
Lab Results
Hemoglobin A1c 10.1 % (4.0-5.6) H 09/05/23 08:10
Insulin Pump Settings
IP Diabetes Regimen
09/20/23 09/20/23 09/20/23
09:16 11:14 16:43
Glucose 152 H
POC Glucose 196 H 130 H
09/20/23 09/20/23 09/21/23
21:18 23:12 05:57
Glucose
POC Glucose 121 H 78 127 H
09/21/23
06:13
Glucose 105 H
POC Glucose
Meal type: Dinner
Meal type: Lunch
Meal type: Breakfast
Amount consumed: 100%
Amount consumed: 100%
Amount consumed: 100%
Patient Education
[2023-09-21] MEDS: PLAVIX 75 MG PO (09:11)
[2023-09-21] MEDS: NORVASC 2.5 MG PO (09:11)
[2023-09-21] MEDS: HEPARIN 5000 UNITS SC ×2 (09:11→19:52)
[2023-09-21] MEDS: VITAMIN C 1000 MG PO (09:11)
[2023-09-21] MEDS: TOPROL XL 50 MG PO ×2 (09:12→19:52)
[2023-09-21] MEDS: LOW STRENGTH ASPIRIN 81 MG PO (09:12)
--- NOTE | 2023-09-21 10:51 | PTCARENOTE ---
Addendum entered by Nina Wang RN 09/21/23 10:57:
Also messaged Dr. Ojeda per podiatry director occupational's request.
Original Note:
Notified attending and podiatry of patient's worsening L toe wound.
--- NOTE | 2023-09-21 11:02 | W.PN.ID1 ---
Date of Service
Date of Service: September 21, 2023
Today's Communication
Continue antibiotics.
Assessment / Plan
Right foot gangrene
- s/p I&D and resection of third toe 09/05/2023
- s/p revision and further debridement 09/13/2023
Leukocytosis - trending down
RAYMOND on CKD
Transaminitis
Elevated ESR and CRP
CAD
HTN
Dyslipidemia
DM type II (uncontrolled; A1c = 10.1)
Nephrolithiasis
Recommendations:
OR cx: MSSA, Strep species, Bacteroides, Finegoldia
Continue with Unasyn (d#17 abx)
Patient's status post angiography and revascularization.
Patient now for tentative TMA.
Continue with tight glucose control.
Given uncontrolled diabetes along with neuropathy, patient is at high risk for limb loss.
����������������������������������������������������������
Chief Complaint
-: Other (Right foot gangrene)
Subjective / Review of Systems
Review of Systems: No Fever and No Chills
Vital Signs / Physical Exam
Vital Signs
Vital Signs
Temp Pulse Resp BP Pulse Ox
98.4 F 61 16 148/75 96
09/21/23 07:00 09/21/23 09:11 09/21/23 07:00 09/21/23 09:11 09/21/23 07:00
Physical Exam
Constitutional: No Acute Distress
Eyes: Sclera Anicteric
Cardiovascular: S1/S2; Negative S3/S4
Pulmonary: Non Labored; Negative Wheezes
Gastrointestinal: Non Distended
Wound: Other (right foot dressing dry and intact. No strikethrough. No erythema extending up leg.)
Neurological: Awake and Alert
Psychological: Calm
Objective Data
Lab Data
Lab Results
09/20/23 09:16
09/21/23 06:13
ESR 105 mm/hour (0-20) H 09/09/23 07:02
PT 16.6 Sec (11.4-14.6) H 09/20/23 09:16
INR 1.33 09/20/23 09:16
APTT 34.4 Sec (23.4-35.0) 09/20/23 09:16
Estimated Creat Clear 44 ml/min 09/21/23 06:13
Lactic Acid 0.9 mmol/L (0.7-2.0) 09/05/23 11:13
Total Bilirubin 0.5 mg/dl (0.2-1.3) 09/20/23 09:16
AST 44 U/L (17-59) 09/20/23 09:16
ALT 40 U/L (0-50) 09/20/23 09:16
Alkaline Phosphatase 107 U/L (38-126) 09/20/23 09:16
C-Reactive Protein 206.40 mg/L (0.0-10.00) H 09/09/23 07:02
Most recent labs reviewed.
Micro Results:
09/05/23 19:39 Blood Culture - Final
Blood/Venous No Growth - Final Report
09/05/23 19:06 Blood Culture - Final
Blood/Venous No Growth - Final Report
09/05/23 16:09 Wound Culture - Final
Foot - Right S aureus-Methicillin Sensitive
Gram Stain - Final
09/05/23 16:11 Wound Culture - Final
Foot - Right S aureus-Methicillin Sensitive
Streptococcus species
Gram Stain - Final
09/05/23 Unknown Anaerobic Culture - Final
Foot - Right Bacteroides thetaiotaomicrom
Finegoldia magna
09/05/23 Unknown Anaerobic Culture - Final
Foot - Right Bacteroides thetaiotaomicrom
Finegoldia magna
09/04/23 13:03 Blood Culture - Final
Blood/Venous No Growth - Final Report
09/04/23 19:50 MRSA Screen - Final
Nose No Methicillin Resistant Staphylococcus aureus isolated.
Imaging:
09/05/2023 Plain film right foot: There has been interval resection of the right third digit at the level of the distal metatarsal bone. There is plantar soft tissue area which appears to be mainly in the region of the second and third metatarsal
bones. There is also a small amount of air off the posterior and superior margin of the calcaneus, anterior to the distal Achilles tendon, unchanged from earlier radiographs. Please see full dictation for additional detail.
09/05/2023 MRI right lower extremity: Numerous rounded foci of decreased signal intensity within the soft tissues of the distal right foot consistent with foci of soft tissue air. There is also concern for foci of air into the third metatarsal bone
and proximal phalanx of the right third toe. Please see full dictation for additional detail.
--- NOTE | 2023-09-21 11:08 | W.PN.HOSP.TC ---
Today's Communication/Plan
-
Mild elevation on Cr - follow labs
for TMA
cont Abx
Podiatry for L toe wound
Assessment / Plan
Assessment / Plan
73yo M with PMHx of DM, HTN, HLD came with c/o worsening discoloration of R toes. HE was seen by his on call pharmacy technician and was sent to ED for possible intervention. Had I&D on 09/05/23 and wound Cx grew S.Aureus. Metabolic acidosis improved. Patient had to
be started on insulin 2/2 poorly controlled blood glucose and museum educator was involved. VascSx did angio on 09/11/23, then podiatry did second debridement on 09/11/23. Had repeated angio on 09/19/23 with good results, podiatry planned for L TMA on
09/21/23
A/P:
#R lower extremity with third toe gangrene
#LLE toe wound
#RLE tenosynovitis
#PAD
MRI with gas in the tissues
Vanco/Zosyn switched to Ancef/flagyl which has now been transitioned to Unasyn 3 g every 6
Bcx NTD
Wound Cx: MSSA and strep
Podiatry to follow: non viable tissue on I&D, plan for TMA on 09/21/23
Vascular evaluated status post right lower extremity angiogram
nephro following along-elevated Cr.
Status post ORIF on 09/12 by podiatry with debridement of the infected nonviable tissue. Significant improvement tissue perfusion was noted.
Podiatry correspondence noted-not much improvement in plantar soft tissue. Vascular surgery repeated angiogram 09/18 with the good results.
Status post left lower extremity ultrasound to assess for possible bypass.
High risk of limb loss due to PAD/Uncontrolled diabetes
# Peripheral arterial disease status post angiogram
Status post lithotripsy right lower extremity/angioplasty
Started on DAPT and continue statin
Vascular to follow in the office
#HAGMA most likely 2/2 infection - resolved
#RAYMOND on CKD stage 3b
#Mild hyponatremia
#Hypokalemia
Nephro signed off
#Transaminitis
#Elevated alk.phos
most likely 2/2 RLE infection
no abd pain
hepatitis C Ab neg
Resolved
#Anemia of chronic disease with RGEGIE complicated by anemia 2/2 CKD
treat infection
IV iron course started
Iron PO upon d/c
Hgb stable
#DM type 2 with circulatory complications/uncontrolled
on Farxiga
Insulin SS, Accuchecks, DM diet
HgbA1c 10.1% - start Lantus 40u qhs and NovoLog 10 units lunch and NovoLog 25 units for breakfast. Patient had teaching for insulin injection.
Counseled patient multiple times about strict glycemic control upon discharge for appropriate wound healing
POC am 125
DM PREPARER provided teaching and home glucose monitor
#Primary HTN
Cont norvasc and toprol
BP controlled.
#HLD
restart statin
#Nicotine dependency
Nicoderm PRN
#ASCVD
cont BB
DVT ppx hep
Full code
I have spent at least 36min reviewing chart, test results, communication with consultants and direct patient care
Anticipated Discharge: > 48 hours
Subjective/Interval History
-
Date of Service: September 21, 2023
Objective Data
-
Labs:
Laboratory Results
09/21/23
06:13
Sodium 136
Potassium 4.6
Chloride 105
Carbon Dioxide 23
BUN 17
Creatinine 1.8 H
Glucose 105 H
Calcium 8.3 L
Vital Signs:
Vital Signs
Temp Pulse Resp BP Pulse Ox
98.4 F 61 16 148/75 96
09/21/23 07:00 09/21/23 09:11 09/21/23 07:00 09/21/23 09:11 09/21/23 07:00
I&O
09/20/23 09/21/23 09/22/23
06:59 06:59 06:59
Intake Total 1210 / 1210 1620 / 1620
Output Total 2230 / 2230 950 / 950 600 / 600
Balance -1020 / -1020 670 / 670 -600 / -600
Review of Systems
-
History Source: Patient
All other systems: Reviewed and negative
Physical Exam
-
General: No Apparent Distress
HEENT: Normocephalic and Atraumatic
Respiratory: Clear to Auscultation
Cardiac: Regular Rhythm
GI: Soft, Nontender and Nondistended
Musculoskeletal: No Clubbing, No Cyanosis, No Edema and Other (RLE in dressing, L 2nd toe draining wound)
Skin: Warm
Neuro: Awake, Alert, Oriented and AO x 3
[2023-09-21 12:09] LABS: Glucose - Point of Care 99 mg/dl (70-99)
--- NOTE | 2023-09-21 14:07 | CM ---
CM reviewed chart, patient for TMA, podiatry following for L toe wound. Patient remains on antibiotics. CM will continue to follow for all discharge planning needs, watch for VN/wound care needs prior to discharge.
Plan; home with VN/Wound care when stable.
--- NOTE | 2023-09-21 14:25 | W.PN.NEPH.PH ---
Today's Communication / Plan
-
Still monitoring for contrast nephropathy as creatinine up to 1.8
Follow-up BMP
Holding ROSALBA and SGLT2 inhibitor and metformin
For TMA today
Assessment/Plan
-
IMP:
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
HAGMA
RAYMOND with CKD stage 3b baseline cr 1.4-1.7
Transaminitis
Anemia of chronic disease with REGGIE complicated by anemia 2/2 CKD
DM type 2 with circulatory complications
HLD
Nicotine dependency
ASCVD
Hypoalbuminemia
Plan:
A/w right foot gangrene and s/p i&d with 3rd toe amp on 09/04
RAYMOND-cr up to 1.8 , remains nonoliguric
KUS with no hydro, normal size kidneys, u pcr 700MG/MG OF CR
holding Farxiga, ACEI and metformin
BP are stable, meds with holding parameters
anemia-follow h/h, fe def, ON IV fe COURSE
renal dose meds, avoid nephrotoxins
hyponatremia resolved, Na 136
Status post arteriogram on 09/11/2023 with PCI
-
-
Date of Service: September 21, 2023
CC / HPI / ROS
-
Chief Complaint:
RAYMOND
History of Present Illness:
Cr slightly better at 1.8 baseline likely 1.5-1.7
BP stable
no fever
Status post a gram with intervention on 09/11/2023 for right lower extremity critical limb ischemia and s/p angiogram 09/18
Sodium at 135
Review of Systems:
no cp or sob
nonoliguric
feels well
Labs
-
Labs:
WBC 8.7 10^3/uL (4.8-10.8) 09/20/23 09:16
RBC 2.97 10^6/uL (4.70-6.10) L 09/20/23 09:16
Hgb 8.3 g/dL (13.0-18.0) L 09/20/23 09:16
Hct 25.5 % (39.0-52.0) L 09/20/23 09:16
Plt Count 375 10^3/uL (130-400) 09/20/23 09:16
Sodium 136 mmol/L (135-145) 09/21/23 06:13
Potassium 4.6 mmol/L (3.5-5.1) 09/21/23 06:13
Chloride 105 mmol/L (98-107) 09/21/23 06:13
Carbon Dioxide 23 mmol/L (22-30) 09/21/23 06:13
BUN 17 mg/dl (9-20) 09/21/23 06:13
Creatinine 1.8 mg/dL (0.7-1.3) H 09/21/23 06:13
eGFR 39.50 09/21/23 06:13
Glucose 105 mg/dl (70-99) H 09/21/23 06:13
Calcium 8.3 mg/dl (8.4-10.2) L 09/21/23 06:13
Albumin 2.7 g/dl (3.5-5.0) L 09/20/23 09:16
Physical Exam
-
Vital Signs:
Vital Signs
Temp Pulse Resp BP Pulse Ox
98.3 F 85 18 137/69 98
09/21/23 11:00 09/21/23 11:00 09/21/23 11:00 09/21/23 11:00 09/21/23 11:00
Cardiovascular:: Regular rate and rhythm
Respiratory:: Bilateral: CTA
Lung Excursion:: Normal
Abdomen:: Nontender and Soft
Bowel Sounds:: Normal
Extremity Edema:: None: Right: (wrapped) and None: Left:
Caraballo Catheter: No
--- NOTE | 2023-09-21 14:59 | W.PN.UPDATE ---
Update Note
Progress Note Update
For transmetatarsal amputation right foot today with primarily closure and distal central packing. Patient tolerated procedure and anesthesia without complications and returned to recovery room with vital signs stable and neurovascular status in
tact. Will remain NWB with dressing in tact until I see him tomorrow.
[2023-09-21 15:27] LABS: Glucose - Point of Care 87 mg/dl (70-99)
[2023-09-21 17:47] LABS: Glucose - Point of Care 86 mg/dl (70-99)
--- NOTE | 2023-09-21 18:07 | PTCARENOTE ---
Asked provider if reduction of standing insulin would be appropriate for dinnertime coverage. Patient's BG 87, NPO most of the day and ordering dinner. Provider advised to full dosage as patient is eating dinner. Assessment of needs ongoing.
[2023-09-21] MEDS: NOVOLOG FLEXPEN 25 UNITS SC (18:43)
[2023-09-21] MEDS: LIPITOR 40 MG PO (19:52)
[2023-09-21 21:12] LABS: Glucose - Point of Care 78 mg/dl (70-99)
[2023-09-21] MEDS: LANTUS 0.4 UNITS SC (21:26)
[2023-09-21] MEDS: TYLENOL 500 MG PO (21:26)
[2023-09-22 03:40] VITALS: BP 142/73
[2023-09-22] MEDS: UNASYN IV ×3 (06:28→17:34)
[2023-09-22 07:00] VITALS: BP 140/75
--- NOTE | 2023-09-22 07:24 | PN.DE.MGMTRT ---
Insulin Management
- -
09/22/2023: Diabetes Management F/U:
Patient admitted with worsening discoloration of Right foot toes due to 3rd toe gangrene and RLE tenosynovitis. MRI noted for gas in the tissues
PMH: ASCVD, HTN, HLD, CKD IIIb, Anemia of chronic disease with REGGIE complicated by anemia 2/2 CKD, Nicotine dependency and T2DM. Was taking Metformin 1000 mg BID and Farxiga 10mg daily prior to admission. A1C 10.1%, Cr 2.6, eGFR 25.41.
States he has had diabetes 10 to 15 years but never tested his glucose. Discussed current A1C and glucose trend, pt made aware that insulin is the only safe option for mgt, with uptrending Cr. Pt was hesitant at first stating that he was hoping he
wouldn't need insulin because he lives on a fixed budget but was agreeable when he learned that insurance will likely cover most of the cost of his insulin especially if he didn't have any issues with coverage of Farxiga.
09/06 Instructed patient on prep and injection technique for pre filled pens with fair return demonstration. Provided home pen needles, nursing to continue reinforcing self inject at all meals. Instructed on action of both Lantus and NovoLog and
injection sites. Verbalized understanding.
Provided Contour next glucose monitor and instructed with good return demonstration.
POD #17 s/p I& D of right foot w/amputation of 3rd toe and metatarsal head.
POD # 11 s/p angiogram with lithotripsy; POD# 9 further debridement right foot.
POD #1 s/p right TMA
Pt states he feels confident with giving himself injections.
Reassured him again that we would work to have a routine established as far as doses and times to take injections.
Pt awake, A/Ox3, resting in bed, offers no complaints, able to discuss diabetes mgt.
Pt was NPO all day yesterday for OR. Glucose remained stable and in range of low normal of 86 to 99 without hypoglycemia
Pt received Lantus 40 units @ HS last night, fasting 163 this AM. Cr 1.8, eGFR 39.50
Will make no changes to current regimen: NovoLog 25 units at breakfast and dinner, and 15 units at lunch, and Lantus 40 units @ HS.
Farxiga 10 mg daily on HOLD due to frequent OR trips. Use corrective insulin while NPO.
Will closely monitor glucose and adjust insulin if necessary
Diabetes History
- -
Type of Diabetes: 2 requiring insulin
Pre-Admission Diabetes Regimen
Lab Results
Hemoglobin A1c 10.1 % (4.0-5.6) H 09/05/23 08:10
Insulin Pump Settings
IP Diabetes Regimen
09/21/23 09/21/23 09/21/23
12:07 15:25 17:45
POC Glucose 99 87 86
09/21/23
21:11
POC Glucose 78
Meal type: Dinner
Meal type: Lunch
Amount consumed: 100%
Amount consumed: 0
Patient Education
[2023-09-22 07:46] LABS: Glucose - Point of Care 163 mg/dl (70-99)
[2023-09-22] MEDS: LOW STRENGTH ASPIRIN 81 MG PO (08:12)
[2023-09-22] MEDS: VITAMIN C 1000 MG PO (08:12)
[2023-09-22] MEDS: TOPROL XL 50 MG PO ×2 (08:12→22:13)
[2023-09-22] MEDS: PLAVIX 75 MG PO (08:12)
[2023-09-22] MEDS: NORVASC 2.5 MG PO (08:12)
[2023-09-22] MEDS: HEPARIN 5000 UNITS SC ×2 (08:12→20:32)
--- NOTE | 2023-09-22 08:15 | W.PN.POD ---
Today's Communication
Today's Communication
Suggest discharge to rehab facility
Assessment / Plan
-
Right LE cellulitis with 3rd toe gangrene
-Gas in plantar soft tissue based on MRI and amputation of right 3rd toe, met head performed 09/04
-09/09 Angioplasty showed completely occluded right PT artery. BK shockwave lithotripsy performed to PT artery to tibioperoneal trunk
-09/12 2nd debridement of remaining devitalized tissue, including remaining lesser toes and metatarsal heads. hallux left in tact.
-09/18 intravascular lithotripsy to right distal PT artery and balloon angioplasty to right tibioperoneal trunk.
-09/20 Full TMA right with primary closure. Significant improvement in tissue perfusion note. Still watching medial ankle wound
Packing pulled and wound edges stable. Keep dressings in tact for now and change every 3 days
-Recommend discharge to rehab facility as he is to remain NWB for the next 2 weeks. OK to do NWB exercised to promote distal flow
-Given uncontrolled diabetes with peripheral neuropathy and peripheral arterial disease, he is at high risk for limb loss.
Left second toe lesion
-Dry callous at distal tip of toe with no edema, erythema or drainage. Central area of dry eschar.
-Likely caused by walking. Now NWB so we will keep the area covered and watch for improvement
DM uncontrolled with peripheral neuropathy
HgbA1c 10.1
Leukocytosis now WNL
-continue antibiotics as per ID
-OR cultured MSSA, Strep species, Bacteroides, Finegoldia
Subjective
Objective
Temp Pulse Resp BP Pulse Ox
99.8 F 99 17 140/75 96
09/22/23 07:00 09/22/23 08:12 09/22/23 07:00 09/22/23 08:12 09/22/23 07:00
Vital Signs and Lab results were reviewed.
Physical Exam
Physical Exam
Packing pulled today. Distal skin color pale but viable with good bleeding skin edges and sutures in tact. Medial ankle wound with no discharge and no surrounding erythema. left 2nd toe callous at distal tip with no edema, erythema or drainage.
Dried blood centrally at callous.
[2023-09-22] MEDS: NOVOLOG FLEXPEN-MODERATE RESISTANCE 1 UNITS SC (08:33)
[2023-09-22] MEDS: NOVOLOG FLEXPEN 25 UNITS SC ×2 (08:34→17:34)
[2023-09-22 09:28] LABS: % Basophils 0.7 % (0-2); % Eosinophils 2.5 % (0-6); % Immature Granulocytes 0.5 % (0-0.5); % Lymphocytes 10.1 % (20.5-51.1); % Monocytes 5.9 % (1.7-9.3); % Neutrophils 80.3 % (42.2-75.2); Absolute Basophils 0.1 10^3/uL (0-0.2); Absolute Eosinophils 0.3 10^3/uL (0-0.7); Absolute Immature Granulocytes 0.1 10^3/uL (0-0.05); Absolute Monocytes 0.6 10^3/uL (0.1-0.6); Hematocrit 26.6 % (39.0-52.0); Hemoglobin 8.9 g/dL (13.0-18.0); Mean Corp Hgb Conc. 33.5 g/dL (33.0-37.0); Mean Corpuscular Hgb 28.3 pg (27.0-31.0); Mean Corpuscular Volume 84.7 fL (80.0-94.0); Mean Platelet Volume 9.4 fL (7.4-10.4); Nucleated Red Blood Cells % 0 % (-); Platelet Count 389 10^3/uL (130-400); Red Blood Cell Count 3.14 10^6/uL (4.70-6.10); Red Cell Dist. Width 15.1 % (11.5-14.5); White Blood Cell Count 9.9 10^3/uL (4.8-10.8)
[2023-09-22 09:35] VITALS: BP 114/63; PULSE 85; O2SAT 94
[2023-09-22 10:07] LABS: ALT (SGPT) 52 U/L (0-50); AST (SGOT) 50 U/L (17-59); Albumin 2.9 g/dl (3.5-5.0); Alkaline Phosphatase 117 U/L (38-126); Blood Urea Nitrogen 17 mg/dl (9-20); Calcium 8.4 mg/dl (8.4-10.2); Carbon Dioxide 24 mmol/L (22-30); Chloride 103 mmol/L (98-107); Estimated Creatinine Clearance 42 ml/min; Glucose 159 mg/dl (70-99); Potassium 4.9 mmol/L (3.5-5.1); Sodium 134 mmol/L (135-145); Total Bilirubin 0.5 mg/dl (0.2-1.3); Total Protein 6.3 g/dl (6.3-8.2); eGFR 37.02
--- NOTE | 2023-09-22 10:26 | W.PN.ID1 ---
Date of Service
Date of Service: September 22, 2023
Today's Communication
As per Dr. Burgos, recommend continue with Unasyn (d#18 abx) for 6 weeks through 10/16/23.
Follow weekly CBC, CMP, CRP while on antibiotic.
Place PICC.
Assessment / Plan
Right foot gangrene
- s/p I&D and resection of third toe 09/05/2023
- s/p revision and further debridement 09/13/2023
- s/p TMA with closure 09/21/23
PAD
-Patient's status post angiography and revascularization.
Leukocytosis - resolved
RAYMOND on CKD
Transaminitis
Elevated ESR and CRP
CAD
HTN
Dyslipidemia
DM type II (uncontrolled; A1c = 10.1)
Nephrolithiasis
Recommendations:
OR cx: MSSA, Strep species, Bacteroides, Finegoldia
OR path: pending
As per Dr. Burgos, recommend continue with Unasyn (d#18 abx) for 6 weeks through 10/16/23.
Follow weekly CBC, CMP, CRP while on antibiotic.
Place PICC.
Follow with Dr. Burgos in 3 to 4 weeks.
Continue with tight glucose control.
Given uncontrolled diabetes along with neuropathy, patient is at high risk for limb loss.
DC to Rehab.
����������������������������������������������������������
Chief Complaint
-: Other (Right foot gangrene)
Subjective / Review of Systems
Feels OK. No diarrhea.
Vital Signs / Physical Exam
Vital Signs
Vital Signs
Temp Pulse Resp BP Pulse Ox
99.8 F 99 17 140/75 96
09/22/23 07:00 09/22/23 08:12 09/22/23 07:00 09/22/23 08:12 09/22/23 07:00
Physical Exam
Constitutional: No Acute Distress and Comfortable
Gastrointestinal: Soft, Non Tender and Non Distended
Wound: Other (Right foot dressing dry.)
Objective Data
Lab Data
Lab Results
09/22/23 08:49
09/22/23 08:49
ESR 105 mm/hour (0-20) H 09/09/23 07:02
PT 16.6 Sec (11.4-14.6) H 09/20/23 09:16
INR 1.33 09/20/23 09:16
APTT 34.4 Sec (23.4-35.0) 09/20/23 09:16
Estimated Creat Clear 42 ml/min 09/22/23 08:49
Lactic Acid 0.9 mmol/L (0.7-2.0) 09/05/23 11:13
Total Bilirubin 0.5 mg/dl (0.2-1.3) 09/22/23 08:49
AST 50 U/L (17-59) 09/22/23 08:49
ALT 52 U/L (0-50) H 09/22/23 08:49
Alkaline Phosphatase 117 U/L (38-126) 09/22/23 08:49
C-Reactive Protein 206.40 mg/L (0.0-10.00) H 09/09/23 07:02
Most recent labs reviewed.
Micro Results:
09/05/23 19:39 Blood Culture - Final
Blood/Venous No Growth - Final Report
09/05/23 19:06 Blood Culture - Final
Blood/Venous No Growth - Final Report
09/05/23 16:09 Wound Culture - Final
Foot - Right S aureus-Methicillin Sensitive
Gram Stain - Final
09/05/23 16:11 Wound Culture - Final
Foot - Right S aureus-Methicillin Sensitive
Streptococcus species
Gram Stain - Final
09/05/23 Unknown Anaerobic Culture - Final
Foot - Right Bacteroides thetaiotaomicrom
Finegoldia magna
09/05/23 Unknown Anaerobic Culture - Final
Foot - Right Bacteroides thetaiotaomicrom
Finegoldia magna
09/04/23 13:03 Blood Culture - Final
Blood/Venous No Growth - Final Report
09/04/23 19:50 MRSA Screen - Final
Nose No Methicillin Resistant Staphylococcus aureus isolated.
Imaging:
09/05/2023 Plain film right foot: There has been interval resection of the right third digit at the level of the distal metatarsal bone. There is plantar soft tissue area which appears to be mainly in the region of the second and third metatarsal
bones. There is also a small amount of air off the posterior and superior margin of the calcaneus, anterior to the distal Achilles tendon, unchanged from earlier radiographs. Please see full dictation for additional detail.
09/05/2023 MRI right lower extremity: Numerous rounded foci of decreased signal intensity within the soft tissues of the distal right foot consistent with foci of soft tissue air. There is also concern for foci of air into the third metatarsal bone
and proximal phalanx of the right third toe. Please see full dictation for additional detail.
[2023-09-22 11:00] VITALS: BP 136/62
--- NOTE | 2023-09-22 12:07 | CM ---
Addendum entered by Suzanne Llanes 09/22/23 16:13:
If cannot reach Dorina, please contact Christina [phone].
[facility]:
Report: [phone]

Addendum entered by Suzanne Llanes 09/22/23 15:56:
Patient seen, agreeable to [facility], able to accept tomorrow. Will need ambulance transportation. Contact Dorina at [facility] ([phone]) tomorrow to discuss transport.
Plan; [facility] tomorrow.
Original Note:
Patient seen bedside, discussed short term rehab recommendations. Patient will need IV antibiotics, Midline being placed today. Patient agreeable to rehab, requesting referrals sent to local facilities, patient resides in [place]. Patient plan is to
return home after rehab. Referrals placed in [facility]. CM will continue to follow for all discharge planning needs.
Plan; SNF pending accepting facility, will need transport.
[2023-09-22 12:22] LABS: Glucose - Point of Care 143 mg/dl (70-99)
[2023-09-22] MEDS: TYLENOL 500 MG PO (12:28)
--- NOTE | 2023-09-22 12:39 | W.PN.HOSP.TC ---
Today's Communication/Plan
-
PICC line and CM for STR
Assessment / Plan
Assessment / Plan
73yo M with PMHx of DM, HTN, HLD came with c/o worsening discoloration of R toes. HE was seen by his cogeneration technician and was sent to ED for possible intervention. Had I&D on 09/05/23 and wound Cx grew S.Aureus. Metabolic acidosis improved. Patient had to
be started on insulin 2/2 poorly controlled blood glucose and public health educator was involved. VascSx did angio on 09/11/23, then podiatry did second debridement on 09/11/23. Had repeated angio on 09/19/23 with good results, podiatry did L TMA on 09/21/23.
PICC line to be placed as outpatient Abx recommended to cont until 10/16/23
A/P:
#R lower extremity with third toe gangrene
#LLE toe wound
#RLE tenosynovitis
#PAD
MRI with gas in the tissues
Vanco/Zosyn switched to Ancef/flagyl which has now been transitioned to Unasyn 3 g every 6 until 10/16/23 as per ID
Bcx NTD
Wound Cx: MSSA and strep
Podiatry to follow: non viable tissue on I&D, plan for TMA on 09/21/23
Vascular evaluated status post right lower extremity angiogram
nephro following along-elevated Cr.
Status post ORIF on 09/12 by podiatry with debridement of the infected nonviable tissue. Significant improvement tissue perfusion was noted.
Podiatry correspondence noted-not much improvement in plantar soft tissue. Vascular surgery repeated angiogram 09/18 with the good results.
Status post left lower extremity ultrasound to assess for possible bypass.
High risk of limb loss due to PAD/Uncontrolled diabetes
# Peripheral arterial disease status post angiogram
Status post lithotripsy right lower extremity/angioplasty
Started on DAPT and continue statin
Vascular to follow in the office
#HAGMA most likely 2/2 infection - resolved
#RAYMOND on CKD stage 3b
#Contrast induced kidney injury
#Mild hyponatremia
#Hypokalemia
follow Cr
avoid nephrotoxic drugs
#Transaminitis
#Elevated alk.phos
most likely 2/2 RLE infection
no abd pain
hepatitis C Ab neg
Resolved
#Anemia of chronic disease with REGGIE complicated by anemia 2/2 CKD
treat infection
IV iron course started
Iron PO upon d/c
Hgb stable
#DM type 2 with circulatory complications/uncontrolled
on Farxiga
Insulin SS, Accuchecks, DM diet
HgbA1c 10.1% - start Lantus 40u qhs and NovoLog 10 units lunch and NovoLog 25 units for breakfast. Patient had teaching for insulin injection.
Counseled patient multiple times about strict glycemic control upon discharge for appropriate wound healing
POC am 125
DM SANDING MACHINE OPERATOR provided teaching and home glucose monitor
#Primary HTN
Cont norvasc and toprol
BP controlled.
#HLD
restart statin
#Nicotine dependency
Nicoderm PRN
#ASCVD
cont BB
DVT ppx hep
Full code
I have spent at least 36min reviewing chart, test results, communication with consultants and direct patient care
Anticipated Discharge: 24 - 48 hours
Subjective/Interval History
-
Date of Service: September 22, 2023
Objective Data
-
Labs:
Laboratory Results
09/22/23
08:49
WBC 9.9
Hgb 8.9 L
Hct 26.6 L
Plt Count 389
Sodium 134 L
Potassium 4.9
Chloride 103
Carbon Dioxide 24
BUN 17
Creatinine 1.9 H
Glucose 159 H
Calcium 8.4
Total Bilirubin 0.5
AST 50
ALT 52 H
Alkaline Phosphatase 117
Vital Signs:
Vital Signs
Temp Pulse Resp BP Pulse Ox
99.2 F 83 18 136/62 96
09/22/23 11:00 09/22/23 11:00 09/22/23 11:00 09/22/23 11:00 09/22/23 11:00
I&O
09/21/23 09/22/23 09/23/23
06:59 06:59 06:59
Intake Total 1620 / 1620 1160 / 1160
Output Total 950 / 950 2375 / 2375
Balance 670 / 670 -1215 / -1215
Review of Systems
-
History Source: Patient
All other systems: Reviewed and negative
Physical Exam
-
General: No Apparent Distress
HEENT: Normocephalic
Respiratory: Clear to Auscultation
Cardiac: Regular Rhythm and S1/S2
GI: Soft, Nontender and Nondistended
Musculoskeletal: No Clubbing, No Cyanosis and No Edema
Skin: Warm
Neuro: Awake, Alert, Oriented and AO x 3
Psych: Calm
[2023-09-22] MEDS: NOVOLOG FLEXPEN-MODERATE RESISTANCE SC ×2 (12:44→16:38)
--- NOTE | 2023-09-22 13:18 | W.PN.NEPH.PH ---
Today's Communication / Plan
-
follow BMP
Assessment/Plan
-
IMP:
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
HAGMA
RAYMOND with CKD stage 3b baseline cr 1.4-1.7
Transaminitis
Anemia of chronic disease with REGGIE complicated by anemia 2/2 CKD
DM type 2 with circulatory complications
HLD
Nicotine dependency
ASCVD
Hypoalbuminemia
Plan:
follow BMP
no ACEI/SGLT2i for now
I expect Cr to plateau and recover
-
-
Date of Service: September 22, 2023
CC / HPI / ROS
-
Chief Complaint:
RAYMOND
History of Present Illness:
CKD3a baseline likely 1.5-1.7
RAYMOND/Cr up to 1.9
BP stable
no fever
Status post agram with intervention on 09/11/2023 for right lower extremity critical limb ischemia and s/p angiogram 09/18
Sodium slightly low at 134
Review of Systems:
no cp or sob
nonoliguric
feels well
Labs
-
Labs:
WBC 9.9 10^3/uL (4.8-10.8) 09/22/23 08:49
RBC 3.14 10^6/uL (4.70-6.10) L 09/22/23 08:49
Hgb 8.9 g/dL (13.0-18.0) L 09/22/23 08:49
Hct 26.6 % (39.0-52.0) L 09/22/23 08:49
Plt Count 389 10^3/uL (130-400) 09/22/23 08:49
Sodium 134 mmol/L (135-145) L 09/22/23 08:49
Potassium 4.9 mmol/L (3.5-5.1) 09/22/23 08:49
Chloride 103 mmol/L (98-107) 09/22/23 08:49
Carbon Dioxide 24 mmol/L (22-30) 09/22/23 08:49
BUN 17 mg/dl (9-20) 09/22/23 08:49
Creatinine 1.9 mg/dL (0.7-1.3) H 09/22/23 08:49
eGFR 37.02 09/22/23 08:49
Glucose 159 mg/dl (70-99) H 09/22/23 08:49
Calcium 8.4 mg/dl (8.4-10.2) 09/22/23 08:49
Albumin 2.9 g/dl (3.5-5.0) L 09/22/23 08:49
Physical Exam
-
Vital Signs:
Vital Signs
Temp Pulse Resp BP Pulse Ox
99.2 F 83 18 136/62 96
09/22/23 11:00 09/22/23 11:00 09/22/23 11:00 09/22/23 11:00 09/22/23 11:00
Cardiovascular:: Regular rate and rhythm
Respiratory:: Bilateral: CTA
Lung Excursion:: Normal
Abdomen:: Nontender and Soft
Bowel Sounds:: Normal
Extremity Edema:: None: Bilateral:
[2023-09-22] MEDS: NOVOLOG FLEXPEN 15 UNITS SC (13:51)
[2023-09-22 15:00] VITALS: BP 109/56
[2023-09-22 16:35] LABS: Glucose - Point of Care 117 mg/dl (70-99)
[2023-09-22 21:14] LABS: Glucose - Point of Care 94 mg/dl (70-99)
[2023-09-22] MEDS: FLUSH (NSS) 1 FLUSH IV (22:12)
[2023-09-22] MEDS: LANTUS 0.4 UNITS SC (22:12)
[2023-09-22] MEDS: LIPITOR 40 MG PO (22:13)
[2023-09-22 23:10] VITALS: BP 118/61
[2023-09-23] MEDS: UNASYN IV ×3 (00:14→11:57)
[2023-09-23] MEDS: TYLENOL 500 MG PO (00:17)
[2023-09-23 06:02] LABS: Blood Urea Nitrogen 17 mg/dl (9-20); Calcium 8.3 mg/dl (8.4-10.2); Carbon Dioxide 26 mmol/L (22-30); Chloride 106 mmol/L (98-107); Estimated Creatinine Clearance 42 ml/min; Glucose 92 mg/dl (70-99); Potassium 4.4 mmol/L (3.5-5.1); Sodium 136 mmol/L (135-145); eGFR 37.02
[2023-09-23 07:14] VITALS: BP 125/69
[2023-09-23 07:54] LABS: Glucose - Point of Care 107 mg/dl (70-99)
[2023-09-23] MEDS: HEPARIN 5000 UNITS SC (08:12)
[2023-09-23] MEDS: NOVOLOG FLEXPEN 25 UNITS SC (08:13)
[2023-09-23] MEDS: NOVOLOG FLEXPEN-MODERATE RESISTANCE SC (08:13)
[2023-09-23] MEDS: VITAMIN C 1000 MG PO (08:14)
[2023-09-23] MEDS: TOPROL XL 50 MG PO (08:14)
[2023-09-23] MEDS: PLAVIX 75 MG PO (08:14)
[2023-09-23] MEDS: LOW STRENGTH ASPIRIN 81 MG PO (08:15)
[2023-09-23] MEDS: NORVASC 2.5 MG PO (08:15)
--- NOTE | 2023-09-23 09:17 | CM ---
Addendum entered by Michelle Ferreira 09/23/23 12:37:
Met with patient at bedside; agreeable with discharge plan; ambulance poultry picking machine tender scheduled @ 1430
IMM benefit explained; form signed @ 1235
Plan: Discharge to [facility] today via ambulance
Report # [phone]

Addendum entered by Michelle Ferreira 09/23/23 10:07:
Ambulance poultry picking machine tender scheduled for 1430
Friend, Li # [phone] notified of DC plan via phone
Original Note:
Plan: Discharge to [facility] today via ambulance; requested 1400 poultry picking machine tender time
Report # [phone]
--- NOTE | 2023-09-23 11:22 | W.PN.HOSP.TC ---
Today's Communication/Plan
-
dc to rehab
Assessment / Plan
Assessment / Plan
73yo M with PMHx of DM, HTN, HLD came with c/o worsening discoloration of R toes. HE was seen by his supervisor hand workers and was sent to ED for possible intervention. Had I&D on 09/05/23 and wound Cx grew S.Aureus. Metabolic acidosis improved. Patient had to
be started on insulin 2/2 poorly controlled blood glucose and nurses educator was involved. VascSx did angio on 09/11/23, then podiatry did second debridement on 09/11/23. Had repeated angio on 09/19/23 with good results, podiatry did L TMA on 09/21/23.
PICC line placed as outpatient Abx recommended to cont until 10/16/23. Cr platoed, recommended to recheck BMP in 1-2 weeks with PCP. Patient verbalized understanding of the instructions. Medically stable for D/C
A/P:
#R lower extremity with third toe gangrene
#LLE toe wound
#RLE tenosynovitis
#PAD
MRI with gas in the tissues
Vanco/Zosyn switched to Ancef/flagyl which has now been transitioned to Unasyn 3 g every 6 until 10/16/23 as per ID
Bcx NTD
Wound Cx: MSSA and strep
Podiatry to follow: non viable tissue on I&D, plan for TMA on 09/21/23
Vascular evaluated status post right lower extremity angiogram
nephro following along-elevated Cr.
Status post ORIF on 09/12 by podiatry with debridement of the infected nonviable tissue. Significant improvement tissue perfusion was noted.
Podiatry correspondence noted-not much improvement in plantar soft tissue. Vascular surgery repeated angiogram 09/18 with the good results.
Status post left lower extremity ultrasound to assess for possible bypass.
High risk of limb loss due to PAD/Uncontrolled diabetes
# Peripheral arterial disease status post angiogram
Status post lithotripsy right lower extremity/angioplasty
Started on DAPT and continue statin
Vascular to follow in the office
#HAGMA most likely 2/2 infection - resolved
#RAYMOND on CKD stage 3b
#Contrast induced kidney injury
#Mild hyponatremia
#Hypokalemia
follow Cr
avoid nephrotoxic drugs
#Transaminitis
#Elevated alk.phos
most likely 2/2 RLE infection
no abd pain
hepatitis C Ab neg
Resolved
#Anemia of chronic disease with REGGIE complicated by anemia 2/2 CKD
treat infection
IV iron course started
Iron PO upon d/c
Hgb stable
#DM type 2 with circulatory complications/uncontrolled
on Farxiga
Insulin SS, Accuchecks, DM diet
HgbA1c 10.1% - start Lantus 40u qhs and NovoLog 10 units lunch and NovoLog 25 units for breakfast. Patient had teaching for insulin injection.
Counseled patient multiple times about strict glycemic control upon discharge for appropriate wound healing
POC am 125
DM [employer] provided teaching and home glucose monitor
#Primary HTN
Cont norvasc and toprol
BP controlled.
#HLD
restart statin
#Nicotine dependency
Nicoderm PRN
#ASCVD
cont BB
DVT ppx hep
Full code
I have spent at least 36min reviewing chart, test results, communication with consultants and direct patient care
Anticipated Discharge: Today
Subjective/Interval History
-
Date of Service: September 23, 2023
Objective Data
-
Labs:
Laboratory Results
09/23/23
05:23
Sodium 136
Potassium 4.4
Chloride 106
Carbon Dioxide 26
BUN 17
Creatinine 1.9 H
Glucose 92
Calcium 8.3 L
Vital Signs:
Vital Signs
Temp Pulse Resp BP Pulse Ox
98.6 F 85 16 118/61 95
09/23/23 07:14 09/23/23 08:15 09/23/23 07:14 09/23/23 08:15 09/23/23 07:14
I&O
09/22/23 09/23/23 09/24/23
06:59 06:59 06:59
Intake Total 1160 / 1160 2250 / 2250
Output Total 2375 / 2375 3525 / 3525
Balance -1215 / -1215 -1275 / -1275
Review of Systems
-
History Source: Patient
All other systems: Reviewed and negative
Physical Exam
-
General: Well Developed, Well Nourished and No Apparent Distress
Respiratory: Clear to Auscultation
Cardiac: Regular Rhythm
GI: Soft, Nontender and Nondistended
Musculoskeletal: No Clubbing, No Cyanosis and No Edema
Skin: Warm; Negative Dry or Rash
Neuro: Awake, Alert, Oriented and AO x 3
Psych: Calm
--- NOTE | 2023-09-23 11:33 | W.DCSUMMARY ---
Discharge Summary
Discharge Data
Date of Admission: 09/04/23
Date of Discharge: 09/23/23
-
Pending Results: Yes
Hospital Course
73yo M with PMHx of DM, HTN, HLD came with c/o worsening discoloration of R toes. HE was seen by his fuel oil truck driver and was sent to ED for possible intervention. Had I&D on 09/05/23 and wound Cx grew S.Aureus. Metabolic acidosis improved. Patient had to
be started on insulin 2/2 poorly controlled blood glucose and chemical educator was involved. VascSx did angio on 09/11/23, then podiatry did second debridement on 09/11/23. Had repeated angio on 09/19/23 with good results, podiatry did L TMA on 09/21/23.
PICC line placed as outpatient Abx recommended to cont until 10/16/23. Cr platoed, recommended to recheck BMP in 1-2 weeks with PCP. Patient verbalized understanding of the instructions. Medically stable for D/C
I have spent at least 38min preparing d/c
Patient was managed for:
#R lower extremity with third toe gangrene
#LLE toe wound
#RLE tenosynovitis
#PAD
#HAGMA most likely 2/2 infection - resolved
#RAYMOND on CKD stage 3b
#Contrast induced kidney injury
#Mild hyponatremia
#Hypokalemia
#Transaminitis
#Elevated alk.phos
#Anemia of chronic disease with REGGIE complicated by anemia 2/2 CKD
treat infection
#DM type 2 with circulatory complications/uncontrolled
#Primary HTN
#HLD
#Nicotine dependency
#ASCVD
Discharge Plan
-
Patient Disposition: Shelter/SNF
Discharge Diagnosis/Procedures: Intravascular lithotripsy to right posterior tibial artery and extending into tibioperoneal trunk (3 mm x 80 mm E8 shockwave balloon)
Intravascular lithotripsy to right popliteal artery (6 mm x 60 mm M5+ shockwave balloon)
Balloon angioplasty to distal posterior tibial artery behind the medial malleolus (2 mm x 40 mm balloon)
Diet: Diabetic, Carb Controlled
Activity: Do not bear weight R leg
Additional Activity: NWB for 2 weeks
Others Tests: Ultrasound: 10/19 @ 1pm
Activity Restrictions/Additional Instructions:
1. Continue with Unasyn 2g IV q6H through 10/16/23.
2. Follow weekly CBC, CMP, CRP while on antibiotic.
Wound Care Instructions
L toe: clean with saline, folded 2x2 gauze and tape change q 2-3 days and prn soilage.
WB and offloading shoe per podiatry
Follow up with Dr. Ojeda
Stand Alone Forms: DC Instr - Vascular OR
Referrals:
Alton Burgos DO [Active] - in three to four weeks
Gene Banks DO [Family Provider] -
Cele Ojeda DPM [Specified Professional Personl] - in less than 1 week
Pricila Rea CRNP [Specified Professional Personl] - 10/25/23 1:30 pm (Vascular surgery follow-up)
Prescriptions:
New
Ampicillin/Sulbactam 3 G [Unasyn] 3 GM
0.9% Sodium Chloride 100 ml [Nss] 100 ML
240 mls/hr IV Q6H
Ordered By: Nik Alvarez MD
Last Taken: 09/23/23 05:41 120 mls
amlodipine 2.5 mg Tablet
2.5 mg PO DAILY Qty: 30 0RF
aspirin 81 mg Tablet,Chewable
81 mg PO DAILY Qty: 30 0RF
Insulin Glargine Lantus [Lantus] 40 UNITS
Subcutaneous Insulin Syringe [Syringe-Insulin] 0 UNIT
As Directed mls/hr SC HS
Ordered By: Nik Alvarez MD
Last Taken: 09/22/23 22:12 0.4 mls
insulin aspart U-100 100 unit/mL (3 mL) Insulin Pen
25 unit SC DAILY@0730,1630 Qty: 10 0RF
insulin aspart U-100 100 unit/mL (3 mL) Insulin Pen
15 unit SC DAILY@1130 Qty: 15 0RF
clopidogrel 75 mg Tablet
75 mg PO DAILY Qty: 30 0RF
acetaminophen [Tylenol Extra Strength] 500 mg Tablet
500 mg PO Q4HPRN PRN (Reason: mild pain/temp>100.8) Qty: 30 0RF
Continued
metoprolol succinate 50 mg tablet extended release 24 hr
50 mg PO BID
atorvastatin 40 MG tablet
40 mg PO HS
Discontinued
amlodipine 5 MG tablet
5 mg PO DAILY Qty: 0 0RF
Rx Instructions:
do not resume this medication until instructed by your ui ux engineer
dapagliflozin propanediol [Farxiga] 10 mg tablet
10 mg PO DAILY
ascorbic acid (vitamin C) [Vitamin C] 1,000 mg Tablet
1,000 mg PO DAILY
lisinopril 20 mg tablet
10 mg PO DAILY Qty: 0 0RF
omega 8-hyi-zry-fish oil [Fish Oil] 1,000 mg (120 mg-180 mg) Capsule
1 cap PO DAILY
Men's 50 Plus Multivitamin 400-20-370 mcg Tablet
1 tab PO DAILY
metformin 500 MG tablet
1,000 mg PO BIDWMEAL
Discharge Orders:
Discharge Patient (As Directed); Ordered 09/23/23
Ordered By: Nik Alvarez
Discharge Date and Time
Print Language: ZIMBABWEAN
--- NOTE | 2023-09-23 11:40 | W.PN.NEPH.PH ---
Today's Communication / Plan
-
follow BMP
Assessment/Plan
-
IMP:
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
HAGMA
RAYMOND with CKD stage 3b baseline cr 1.4-1.7
Transaminitis
Anemia of chronic disease with REGGIE complicated by anemia 2/2 CKD
DM type 2 with circulatory complications
HLD
Nicotine dependency
ASCVD
Hypoalbuminemia
Plan:
follow BMP, supect he has plateaued and will have improvement going forward
no ACEI/SGLT2i for now
BMP monday
-
-
Date of Service: September 23, 2023
CC / HPI / ROS
-
Chief Complaint:
RAYMOND
History of Present Illness:
CKD3a baseline likely 1.5-1.7
RAYMOND/Cr stable at 1.9
BP stable
no fever
Status post agram with intervention on 09/11/2023 for right lower extremity critical limb ischemia and s/p angiogram 09/18
Sodium better
Review of Systems:
no cp or sob
nonoliguric
feels well
Labs
-
Labs:
WBC 9.9 10^3/uL (4.8-10.8) 09/22/23 08:49
RBC 3.14 10^6/uL (4.70-6.10) L 09/22/23 08:49
Hgb 8.9 g/dL (13.0-18.0) L 09/22/23 08:49
Hct 26.6 % (39.0-52.0) L 09/22/23 08:49
Plt Count 389 10^3/uL (130-400) 09/22/23 08:49
Sodium 136 mmol/L (135-145) 09/23/23 05:23
Potassium 4.4 mmol/L (3.5-5.1) 09/23/23 05:23
Chloride 106 mmol/L (98-107) 09/23/23 05:23
Carbon Dioxide 26 mmol/L (22-30) 09/23/23 05:23
BUN 17 mg/dl (9-20) 09/23/23 05:23
Creatinine 1.9 mg/dL (0.7-1.3) H 09/23/23 05:23
eGFR 37.02 09/23/23 05:23
Glucose 92 mg/dl (70-99) 09/23/23 05:23
Calcium 8.3 mg/dl (8.4-10.2) L 09/23/23 05:23
Albumin 2.9 g/dl (3.5-5.0) L 09/22/23 08:49
Physical Exam
-
Vital Signs:
Vital Signs
Temp Pulse Resp BP Pulse Ox
98.6 F 85 16 118/61 95
09/23/23 07:14 09/23/23 08:15 09/23/23 07:14 09/23/23 08:15 09/23/23 07:14
Cardiovascular:: Regular rate and rhythm
Respiratory:: Bilateral: Coarse
Lung Excursion:: Normal
Abdomen:: Nontender and Soft
Bowel Sounds:: Normal
Extremity Edema:: None: Bilateral:
[2023-09-23 12:02] LABS: Glucose - Point of Care 192 mg/dl (70-99)
[2023-09-23] MEDS: NOVOLOG FLEXPEN-MODERATE RESISTANCE 1 UNITS SC (12:10)
[2023-09-23] MEDS: NOVOLOG FLEXPEN 15 UNITS SC (12:10)
[2023-09-23 14:23] VITALS: BP 125/58
== END 2023-09-23 14:45 | DRG 239 ==
LOC: 4 WEST ACU 15:20
PROVIDERS: Clinical Nurse Specialist Family Health; Hospitalist; Nurse Practitioner; Specialist; ADMITTING PHYSICIAN Internal Medicine; CONSULT PHYSICIAN Internal Medicine; CONSULT PHYSICIAN Internal Medicine Infectious Disease; CONSULT PHYSICIAN Podiatrist Foot & Ankle Surgery; CONSULT PHYSICIAN Surgery Vascular Surgery; EMERGENCY PHYSICIAN Emergency Medicine; FAMILY PHYSICIAN Family Medicine
PROC: 0Y6T0Z0 Detachment at Right 3rd Toe, Complete, Open Approach (ICD-10-PCS; 2023-09-05)
PROC: 0QBN0ZZ Excision of Right Metatarsal, Open Approach (ICD-10-PCS; 2023-09-05)
PROC: 04FR3ZZ Fragmentation of Right Posterior Tibial Artery, Percutaneous Approach (ICD-10-PCS; 2023-09-11)
PROC: B41D1ZZ Fluoroscopy of Aorta and Bilateral Lower Extremity Arteries using Low Osmolar Contrast (ICD-10-PCS; 2023-09-11)
PROC: 047R3ZZ Dilation of Right Posterior Tibial Artery, Percutaneous Approach (ICD-10-PCS; 2023-09-11)
PROC: 04FM3ZZ Fragmentation of Right Popliteal Artery, Percutaneous Approach (ICD-10-PCS; 2023-09-11)
PROC: 0Y6M0ZF Detachment at Right Foot, Partial 5th Ray, Open Approach (ICD-10-PCS; 2023-09-13)
PROC: 0Y6M0ZC Detachment at Right Foot, Partial 3rd Ray, Open Approach (ICD-10-PCS; 2023-09-13)
PROC: 0Y6M0ZD Detachment at Right Foot, Partial 4th Ray, Open Approach (ICD-10-PCS; 2023-09-13)
PROC: 0Y6M0ZB Detachment at Right Foot, Partial 2nd Ray, Open Approach (ICD-10-PCS; 2023-09-13)
PROC: B41F1ZZ Fluoroscopy of Right Lower Extremity Arteries using Low Osmolar Contrast (ICD-10-PCS; 2023-09-19)
PROC: 047M3ZZ Dilation of Right Popliteal Artery, Percutaneous Approach (ICD-10-PCS; 2023-09-19)
PROC: 02HV33Z Insertion of Infusion Device into Superior Vena Cava, Percutaneous Approach (ICD-10-PCS; 2023-09-22)
DX: E11.52 Type 2 diabetes mellitus with diabetic peripheral angiopathy with gangrene (principal); A48.0 Gas gangrene; E87.1 Hypo-osmolality and hyponatremia; E87.20 Acidosis, unspecified; M86.171 Other acute osteomyelitis, right ankle and foot; N17.9 Acute kidney failure, unspecified; L02.611 Cutaneous abscess of right foot; N18.32 Chronic kidney disease, stage 3b; I12.9 Hypertensive chronic kidney disease with stage 1 through stage 4 chronic kidney disease, or unspecified chronic kidney disease; E78.00 Pure hypercholesterolemia, unspecified; I70.221 Atherosclerosis of native arteries of extremities with rest pain, right leg; E11.22 Type 2 diabetes mellitus with diabetic chronic kidney disease; I25.10 Atherosclerotic heart disease of native coronary artery without angina pectoris; L03.031 Cellulitis of right toe; E88.09 Other disorders of plasma-protein metabolism, not elsewhere classified; F17.210 Nicotine dependence, cigarettes, uncomplicated; D63.1 Anemia in chronic kidney disease; E11.65 Type 2 diabetes mellitus with hyperglycemia; E11.40 Type 2 diabetes mellitus with diabetic neuropathy, unspecified; E11.69 Type 2 diabetes mellitus with other specified complication; M65.871 Other synovitis and tenosynovitis, right ankle and foot; E87.6 Hypokalemia; Z79.84 Long term (current) use of oral hypoglycemic drugs; Z79.899 Other long term (current) drug therapy; Z87.442 Personal history of urinary calculi; Z95.1 Presence of aortocoronary bypass graft
CPT/HCPCS: 88305; 88311; 37252; 71045; 73620; 73630; 73720; 75625; 75710; 75716; 76775; 76937; 80048; 80053; 80202; 81003; 82010; 82248; 82570; 82607; 82728; 82746; 82805; 82947; 82962; 83036; 83540; 83550; 83605; 83735; 84156; 84300; 85025; 85610; 85652; 85730; 86140; 86803; 86850; 86900; 86901; 87040; 87070; 87075; 87076; 87077; 87147; 87185; 87186; 87205; 93922; 93925; 93970; 96365; 96366; 96367; 97116; 97163; 97164; 97166; 97530; 97535; 99285; A9575; C1725; C1769; C1894; C9764; C9772; J2916; Q9967

== ENCOUNTER 2023-10-09 13:55 | Inpatient (IN) | payer MEDICARE, OTHER, SELFPAY ==
[2023-10-09] VITALS (9 sets, daily range): BP systolic 102–159; BP diastolic 53–78; BMI 23.4
--- NOTE | 2023-10-09 11:35 | ED.GENMED ---
History of Present Illness
General
Chief Complaint: Extremity Pain (non-traumatic)
Source: patient and family
Exam Limitations: none
Nursing documentation reviewed up to this point in time: agreed with
History of Present Illness
History of Present Illness:
Patient status post right foot transmetatarsal amputation earlier this month, currently receiving antibiotics via PICC line, [facility] secondary to 'changes' in his surgical site noted by nursing staff. intermediate spoke
with patient financial advocate who recommended patient come to ED for evaluation. Patient himself, however, has no complaints. Denies fever or chills. Denies nausea or vomiting. Denies pain.
Past History
Past History
ED Past Medical History: CAD, HTN, Hypercholesterolemia, NIDDM and Other (Kidney stones, appendectomy, DM)
ED Past Surgical History: Cardiac
Social History
Tobacco: Non-smoker
Alcohol: Occasional
Drug: None
Living: alone
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
Family History
Family History: Other (Brother with kidney stones)
Review of Systems
Review of Systems
Allergies reviewed?: Yes
All Other Systems: ROS reviewed and negative except as documented in HPI and ROS
Constitutional: Reports no symptoms; Denies fever
ABD/GI: Reports no symptoms
Musculoskeletal: Reports no symptoms
Skin: Reports other (foot wound)
Neurological: Reports no symptoms
Phy Exam
Physical Exam
Physical Exam:
Physical Exam
General: no apparent distress, not acutely ill. afebrile
Head: nc/at. eomi
Neck: supple. normal range of motion.
Neuro: alert and oriented. no focal neurological deficits
Skin: surgical site noted, right foot: sutures in place without opening/drainage. nontender.
Psychiatric: well kept. interactive and cooperative
Extremities: no edema. no calf tenderness.
Course
Orders/Labs/Results
Orders:
Orders
10/09/23 11:58
CR Chest Portable - 1 View Urgent
Comment:
Reason For Exam: PICC placement RUE
Reason Study Needs to be Portable: Other
10/09/23 12:47
Basic Metabolic Panel Urgent
Complete Blood Count/With Diff Urgent
10/09/23 13:37
Admit/Transfer Patient As Directed
Co-Sign Provider:
Level of Care: Inpatient admission
Assign to:: Medical/Surgical
Physician / Group: harriet corbett
Diagnosis: necrotic incisional area right foot s/p amputation
Reason for Hospitalization: necrotic incisional area right foot s/p amputation
Expected length of stay greater than two midnights?: Yes
ELOS- Estimated Length of Stay in days: 5
I certify the patient meets the requirements for IP care: Yes
Code Status As Directed
Resuscitation Status: Full Code
10/09/23 13:40
PRN Pain Medication Management As Directed
May give lesser potent ordered pain med per pt: Yes
preference::
Protocol:: Medication orders for pain may be administered in a
manner that supports deferring to patient preference
when the pt is:
- Requesting an ordered lesser potent pain medication.
Least to most potent pain medications are defined
as: acetaminophen < NSAID < tramadol < opioids
(morphine, oxycodone, hydromorphone).
- Requesting a lesser dose of the same medication IF
ORDERED.
- Requesting a less intrusive route of administration
if both routes are prescribed by the provider (PO <
IV).
10/09/23 13:43
SURGICAL CONSULT Routine
Consulting Provider: Speedy Caraballo III
Was physician already notified: Yes
Reason for consult: right foot incision sites nectoritc s/p amputation
10/09/23 13:45
PODIATRY CONSULT Routine
Consulting Provider: Cele Ojeda
Was physician already notified: Yes
Reason for consult: right foot incision sites nectoritc s/p amputation
10/09/23 13:46
INFECTIOUS DISEASE CONSULT Routine
Consulting Provider: Dimple Eckert
Was physician already notified: Yes
Reason for consult: right foot incision sites nectoritc s/p amputation
10/09/23 Dinner
Cholesterol Lowering
At Your Request: Full Participation
Does patient need a safe tray?: No
Cholesterol Lowering: Sodium, 2 Gram
1800 johnny/15 CHO Diabetic
10/09/23 15:11
Acetaminophen [Tylenol] 325 mg PO Q4HPRN PRN
Acetaminophen [Tylenol] 650 mg PO Q4HPRN PRN
Bisacodyl [Dulcolax] 10 mg RECTAL DAILYPRN PRN
Dextrose 50%-Water [Dextrose 50% Syringe] 12.5 grams IV [id number] PRN
Glucagon [GlucaGen] 1 mg IM PRN PRN
Magnesium Hydroxide [Milk of Magnesia] 30 ml PO [id number] PRN
Phosphate Enema [Fleet Phosphate Enema-Adult] 135 ml RECTAL DAILYPRN PRN
10/09/23 15:11
Diabetes Management by Nurse Practitioner Routine
Consulting Provider: Pamella Jansen
Was provider already notified?: Yes
Reason for Consult: Insulin Management
Activity As Directed
Activity Level: As Tolerated
Bedside Glucose Monitoring As Directed
Frequency: AC&HS
Additional Instructions:: Change to q6h if pt on TPN, tube feeding or not eating
Vital Signs As Directed
Frequency: Per unit guidelines
Ot Eval And Treat Routine
Pt Eval And Treat Routine
Activity Level: As Tolerated
DX Deep Vein Thrombosis Video Routine
10/09/23 16:30
Insulin Aspart Corrective Low [Novolog Flexpen-Low Resistance] See Protocol SC AC
Insulin Aspart Pen [Novolog Flexpen] 15 units SC AC
10/09/23 20:00
Heparin 5,000 units SC Q12
Metoprolol Xl [Toprol Xl] 50 mg PO BID
10/09/23 22:00
Atorvastatin [Lipitor] 40 mg PO HS
10/10/23 04:37
Complete Blood Count/With Diff IN AM
Comprehensive Metabolic Panel IN AM
10/10/23 08:00
Amlodipine [Norvasc] 2.5 mg PO DAILY
Aspirin Chewable [Low Strength Aspirin] 81 mg PO DAILY
Cholecalciferol (Vitamin D3) [VITAMIN D3 (cholecalciferol)] 25 mcg PO DAILY
10/11/23 06:00
Complete Blood Count/With Diff IN AM
Comprehensive Metabolic Panel IN AM
10/12/23 06:00
Complete Blood Count/With Diff IN AM
Comprehensive Metabolic Panel IN AM
Abnormal Lab Results
10/09/23
12:47
RBC 3.26 L 10^6/uL
(4.70-6.10)
Hgb 8.9 L g/dL
(13.0-18.0)
Hct 27.2 L %
(39.0-52.0)
MCHC 32.7 L g/dL
(33.0-37.0)
RDW 14.8 H %
(11.5-14.5)
Absolute Monos (auto) 0.7 H 10^3/uL
(0.1-0.6)
Lymphocytes % 17.4 L %
(20.5-51.1)
BUN 31 H mg/dl
(9-20)
Creatinine 1.5 H mg/dL
(0.7-1.3)
Glucose 172 H mg/dl
(70-99)
10/09/23 12:47
10/09/23 12:47
Vital Signs
Initial and Last Documented VS:
Initial Vital Signs
BP
136/67
10/09/23 10:29
Last Documented Vital Signs
Temp Pulse Resp BP Pulse Ox
98 F 83 16 125/69 97
10/10/23 07:15 10/10/23 07:15 10/10/23 07:15 10/10/23 07:15 10/10/23 07:15
MDM/Problems Addressed
MDM/Problems Addressed:
Discussed with Dr. Ojeda (podiatry) - Recommends admission under hospitalist service with same abx coverage, along with potential vascular surgery consultation, to make sure that recent bypass is patent.
*Critical Care Note
Total Time (30-74mins, 75-104mins- exclusive of procedures): Not Applicable
ED Attending Note
-
Portions of this chart may have been created with voice recognition software.� Occasional wrong word or��sound alike� substitutions may have occurred due to the inherent limitations of voice recognition software.
Discharge Plan
Departure
Patient Disposition: Admit
Date of Disposition: 10/09/23
Time of Disposition: 12:41
Admit to: Med/Surg
Presentation/result/management discussed w/ accepting MD/DO: Hospitalist
Discharge Problem:
Infection of right foot
Interventions
Interventions:
*Risk Screen - Suicide Last Done: 10/09/23 10:32
*General Assessment Last Done: 10/09/23 10:32
*Neglect/Abuse Screening Last Done: 10/09/23 10:32
*ED COVID-19 Vaccine History Last Done: 10/09/23 10:32
*Nursing Disposition Last Done: 10/09/23 15:14
ED-Musculoskeletal Assessment Last Done: 10/09/23 13:00
ED-Peripheral Vascular Assessment Last Done: 10/09/23 14:40
ED-Skin Assessment Last Done: 10/09/23 13:00
Discharge Date and Time
Discharge Date/Time: 10/09/23 15:17
[2023-10-09 13:05] LABS: % Eosinophils 4.2 % (0-6); % Immature Granulocytes 0.5 % (0-0.5); % Lymphocytes 17.4 % (20.5-51.1); % Neutrophils 67.9 % (42.2-75.2); Absolute Basophils 0.1 10^3/uL (0-0.2); Absolute Eosinophils 0.3 10^3/uL (0-0.7); Absolute Lymphocytes 1.4 10^3/uL (1.2-3.4); Absolute Monocytes 0.7 10^3/uL (0.1-0.6); Absolute Neutrophils 5.5 10^3/uL (1.4-6.5); Hematocrit 27.2 % (39.0-52.0); Hemoglobin 8.9 g/dL (13.0-18.0); Mean Corp Hgb Conc. 32.7 g/dL (33.0-37.0); Mean Corpuscular Hgb 27.3 pg (27.0-31.0); Mean Corpuscular Volume 83.4 fL (80.0-94.0); Mean Platelet Volume 9.4 fL (7.4-10.4); Nucleated Red Blood Cells % 0 % (-); Platelet Count 360 10^3/uL (130-400); Red Blood Cell Count 3.26 10^6/uL (4.70-6.10); Red Cell Dist. Width 14.8 % (11.5-14.5); White Blood Cell Count 8.2 10^3/uL (4.8-10.8)
[2023-10-09 13:12] LABS: Blood Urea Nitrogen 31 mg/dl (9-20); Carbon Dioxide 27 mmol/L (22-30); Chloride 103 mmol/L (98-107); Estimated Creatinine Clearance 55 ml/min; Glucose 172 mg/dl (70-99); Sodium 140 mmol/L (135-145); eGFR 49.16
--- NOTE | 2023-10-09 13:14 | HPS.HSE ---
Addendum entered and electronically signed by Thais Tran MD 10/09/23 16:16:
I saw and examined the patient.
The BIOCHEMISTRY TECHNOLOGIST or PA's note was reviewed and I agree with the note.
Comment:
73M [facility] rehab PAD, right lower extremity tenosynovitis, CKD, anemia of chronic disease, insulin dependent DM2, HTN, HLD, nicotine dependence, ASCVD x CABG 3 vessel 8 years ago referred for evaluation poor wound healing concern infection
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
Physical Exam
General: Comfortable and Conversant
HEENT: NormoCephalic, Anicteric, PERRLA
Respiratory: Clear; No Wheezes, Rales or Rhonchi
Cardiac: S1/S2 and Regular Rhythm
GI: Soft, Non Tender, Non Distended, Normal Bowel Sounds present
Musculoskeletal: Right foot status post TMA with areas of blackness along surgical sites, necrotic appearing left heel wound
Skin: Warm, Dry PICC line right upper extremity
Neuro: AO x 3 numbness right foot
Psych: Calm
#R lower extremity s/p TMA gangrene MSSA infection
#LLE toe wound chronic
#RLE tenosynovitis
# Peripheral arterial disease
#DM type 2
#CKD stage 3b
#Chronic Anemia
#HTN
#HLD
#ASCVD/CABG 3 vessel 8 years ago
ID Vascular Podiatry eval
cont unasyn
PT/OT
Glycemic control
BP control
DM BIOCHEMISTRY TECHNOLOGIST eval
wound care
Monitor H&H renal function
Original Note:
Family Physician
-
Family Physician: Michi Thomas MD
Chief Complaint
-
Right foot blackness to areas of surgical site
History of Present Illness
73-year-old male from [facility] rehab sent for changes in his right foot surgical site areas of blackness along his surgical site along with blackness to left heel wound. The patient has no sensation below the level of the ankle. He denies
fever, chills, chest pain, palpitations, shortness breath, cough, abdominal pain, nausea, vomiting, diarrhea, urinary symptoms.
The patient had a recent right third toe gangrene with angio then debridement 09/11/2023. Podiatry did left TMA on 09/21/2023 patient had PICC line with IV antibiotics recommended until 10/16/2023. Prior I&D of wound on 09/05/2023 grew Staph aureus.
Other past medical history includes PAD, right lower extremity tenosynovitis, RAYMOND on CKD 3B, anemia of chronic disease, DM2 uncontrolled, HTN�benign, HLD, nicotine dependence, ASCVD x CABG 3 vessel 8 years ago
Medical History
Past Medical History
Past Medical History: Reports Other
Additional Past Medical History:
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
CAD/Cabg x 3 vessel
HTN
HLD
DM2
Renal calculi
occasional smoker.
Past Surgical History: Reports Other
Additional Past Surgical History:
R lower extremity with third toe gangrene S/P left TMA 09/21/2023 w/ debridement on 09/13/2023
-Wound Cx: MSSA and strep
CABG x3 vessel 8 years ago
appendectomy
Social History
Tobacco: Non-smoker (Patient reports he has never smoked in his life)
Alcohol: Occasional
Drug: None
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
Family History
Family History: Other (brother renal calculi )
Allergies / Home Medications
Allergies reflects when Allergies were last updated in [facility].
Home Medications with original date entered in [employer]
Allergy/Medication List:
Allergies
Allergy/AdvReac Type Severity Reaction Status Date / Time
No Known Allergies Allergy Verified 09/04/23 11:50
Home Medications
amlodipine 5 mg tablet 5 mg PO DAILY ##0 03/25/14
ascorbic acid (vitamin C) 1,000 mg tablet (Vitamin C) 1,000 mg PO DAILY 05/02/23
dapagliflozin propanediol 10 mg tablet (Farxiga) 10 mg PO DAILY 05/02/23
metoprolol succinate 50 mg tablet,extended release 24 hr 50 mg PO BID 05/02/23
lisinopril 20 mg tablet 10 mg (1/2 x 20 mg) PO DAILY #0 tabs 05/03/23
atorvastatin 40 mg tablet 40 mg PO HS 09/04/23
metformin 500 mg tablet 1,000 mg PO BIDWMEAL 09/04/23
tozwparmygjr-llb-fkbku acid-vit K-lycop 400 mcg-20 mcg-370 mcg tablet (Men's 50 Plus Multivitamin) 1 tab PO DAILY 09/04/23
omega 5-dkq-ldc-fish oil 1,000 mg (120 mg-180 mg) capsule (Fish Oil) 1 cap PO DAILY 09/04/23
Review of Systems
-
History Source: Patient
A 12 point ROS was completed and negative except as noted: Yes
Constitutional: Denies Fever or Chills
EENT: Denies Tearing or Mouth Swelling
Respiratory: Denies Cough or Trouble Breathing
Cardiac: Denies Chest Pain, Diaphoresis, Palpitations or Syncope
Abdomen/GI: Denies Abdominal Pain, Nausea, Vomiting, Diarrhea or Constipated
: Denies Dysuria, Frequency, Flank Pain, Incontinence, Difficulty Voiding or Urgency
Musculoskeletal: Reports Other (Right foot status post TMA with areas of blackness along surgical sites and 50% of left heel wound appears necrotic); Denies Joint Pain or Edema
Skin: Denies Itching or Rash
Neurological: Denies Dizzy or Headache
Endocrine: Reports No Symptoms
Hematologic/Lymphatic: Reports No Symptoms
Psych: Reports Calm
Physical Exam
Vital Signs
Vital Signs
Temp Pulse BP Pulse Ox
98.0 F 83 136/67 99
10/09/23 10:30 10/09/23 10:30 10/09/23 10:30 10/09/23 10:30
Physical Exam
General: Comfortable and Conversant; No Pain, Fever or Chills
HEENT: NormoCephalic, Anicteric, PERRLA, [place] Conjunctivae and No Ptosis
Respiratory: Clear; No Wheezes, Rales or Rhonchi
Cardiac: S1/S2 and Regular Rhythm; No Murmur, Rub, Gallop or Peripheral Edema
Breast: Deferred by me
GI: Soft, Non Tender, Non Distended, Normal Bowel Sounds and No Hepatosplenomegaly
Rectal: Deferred by Provider
Genito-urinary: Deferred by me
Musculoskeletal: No Clubbing, No Cyanosis, No Edema and Other (Right foot status post TMA with areas of blackness along surgical sites and 50% of left heel wound appears necrotic)
Skin: Warm, Dry and IV/Catheter Site (PICC line right upper extremity)
Neuro: AO x 3, No Motor Deficits, Cranial Nerves Intact and Other (Chronic neuropathy from ankles to feet); No Slurred Speech, Facial Droop or Tremors
Psych: Calm
Laboratory Results
-
10/09/23 12:47
10/09/23 12:47
Impression/Plan
-
Impression/plan:
Admit to MedSurg
#R lower extremity with third toe gangrene S/P left TMA 09/21/2023 w/ debridement on 09/13/2023
-Wound Cx: MSSA and strep
#LLE toe wound chronic
#RLE tenosynovitis
#PAD
-PICC line present is on Unasyn 3 g every every 6 until 10/16/2023 per ID last note
-Vascular surgery repeated angiogram 09/18 with the good results.
-Consult podiatry
-Consult vascular surgery
-Follow CBC, BMP
-Consult PT/OT/case management
# Peripheral arterial disease status post angiogram
-Status post lithotripsy right lower extremity/angioplasty
Continue DAPT with aspirin, Plavix started on recent admission and continue statin
Vascular to follow in the office
#DM type 2 with circulatory complications/uncontrolled
BS 172
-Accu-Cheks with SSI, 200 ADA diet
HgbA1c 10.1% - start Lantus 40u qhs and NovoLog 10 units lunch and NovoLog 25 units for breakfast. Patient had teaching for insulin injection.
-Farxiga was stopped on recent admission due to uncontrolled diabetes insulin was started
-Patient had BIOCHEMISTRY TECHNOLOGIST teaching with home glucose monitor and stress of stroke like c-Myc control on recent discharge
# CKD stage 3b
#History of recent metabolic acidosis
Creat 1.5 improved from 1.9 on 09/23/2023
-
#Anemia of chronic disease with REGGIE complicated by anemia 2/2 CKD
treat infection
-Hgb 8.9
IV iron course treated during recent hospitalization admission
-Continue oral iron
#Transaminitis secondary right lower extremity infection on 09/21/2023-resolved on discharge
#Elevated alk.phos
-hepatitis C Ab neg
most likely 2/2 RLE infection
#HTN-�benign
BP 136/67
Cont norvasc and toprol
#HLD
Continue statin
#ASCVD/CABG 3 vessel 8 years ago
-Continue aspirin, statin
-cont BB
DVT prophylaxis
Subcu heparin
Full code
--- NOTE | 2023-10-09 14:27 | CON.VAS ---
Addendum entered and electronically signed by Speedy Caraballo III, MD 10/09/23 20:07:
This patient was seen and examined with DARRIAN Ocampo. I agree with the history and physical exam as well as the assessment and plan. I have the following additions:
Patient is known to me
Recent endovascular interventions for critical limb threatening ischemia of the right lower extremity
Transmetatarsal amputation
Returns to the ED for wound evaluation of right TMA
Afebrile
No complaints
He is nontoxic-appearing
Right foot as per clinical images
Some necrotic tissue is evident but there is no erythema
No identifiable drainage
Sutures are intact
He has easily audible DP and PT Doppler signals
Will discuss management of the TMA site with Dr. Ojeda
For now continue local wound care
Santyl to the medial ankle/heel wound
Will follow
Signed:
Speedy Caraballo III, MD
[facility] Vascular Surgery
[phone] (kguc)
Original Note:
Consultation
Consultation Request
Date/Time Consultation Performed: 10/09/23 1415
Requesting Provider: Hospitalist
Performing Provider: Dimple Maki LICENSED LAND SURVEYOR-C for Speedy Caraballo III, MD
Reason for Consultation: Wound right foot
Medical History
-
Chief Complaint: Chronic Wound Right foot
History of Present Illness:
This is a 73-year-old male with significant past medical history of CAD, hypertension, hypercholesteremia, and kidney stones who is known to our service for recent endovascular work during past admission from 09/04/23- 09/23/2023, who [facility] ED
[facility] where staff are concerned regarding post right TMA amputation site progression. He underwent resection of digits 2, 4, and 5 with removal partial
metatarsal 2, 3, 4, and [address] Ojeda on 09/13/2023. Vascular Surgical history below. Patient denies fever, chills, nausea, vomiting, increased pain, erythema at right foot, foul smell, or drainage. Currently, offers no complaints. Right TMA
site with eschar over surgical bed, pictures below.
Vascular Surgical History:
09/11/23- Intravascular lithotripsy to right posterior tibial artery and extending into tibioperoneal trunk (3 mm x 80 mm E8 shockwave balloon). Intravascular lithotripsy to right popliteal artery (6 mm x 60 mm M5+ shockwave balloon). Balloon
angioplasty to distal posterior tibial artery behind the medial malleolus (2 mm x 40 mm balloon). Diagnostic aortobiiliac arteriogram. Diagnostic right lower extremity arteriogram- Dr. Speedy Caraballo III
09/19/23- Intravascular lithotripsy to right distal posterior tibial artery (2.5 mm x 80 mm E8 shockwave balloon). Balloon angioplasty to right tibioperoneal trunk (3.5 mm x 60 mm angioplasty balloon). Diagnostic right lower extremity arteriogram.
Ultrasound-guided percutaneous ANTEGRADE access to the proximal right superficial femoral artery. - Dr. Speedy Caraballo III
Past Medical History
Past Medical History: CAD, HTN, NIDDM and Other (kidney stones)
Past Surgical History: Appendectomy and Cardiac (ASCVD x CABG 3 vessel 8 years ago)
Social History
Tobacco: Smoker
Alcohol: Occasional
Employment: Employed
Allergies / Home Medications
Allergy/AdvReac Type Severity Reaction Status Date / Time
No Known Allergies Allergy Verified 09/04/23 11:50
�Medication �Instructions �Recorded �Confirmed �Type
metoprolol succinate 50 mg 50 mg PO BID 05/02/23 10/09/23 History
tablet,extended release 24 hr
atorvastatin 40 mg tablet 40 mg PO HS 09/04/23 10/09/23 History
amlodipine 2.5 mg tablet 2.5 mg PO DAILY #30 tabs 09/23/23 10/09/23 Rx
aspirin 81 mg chewable tablet 81 mg PO DAILY #30 tabs 09/23/23 10/09/23 Rx
clopidogrel 75 mg tablet 75 mg PO DAILY #30 tabs 09/23/23 10/09/23 Rx
acetaminophen 325 mg tablet 325 mg PO Q4HPRN PRN mild pain 10/09/23 10/09/23 History
(Tylenol)
ampicillin-sulbactam 3 gram 3 g IM Q6H 10/09/23 10/09/23 History
solution for injection (Unasyn)
bisacodyl 10 mg rectal suppository 10 mg SC DAILYPRN PRN if no bm 10/09/23 10/09/23 History
(Dulcolax (bisacodyl)) aftr mom
cholecalciferol (vitamin D3) 25 25 mcg PO DAILY 10/09/23 10/09/23 History
mcg (1,000 unit) tablet (Vitamin
D3)
collagenase clostridium histo. 250 1 applic topical Q72H right foot 10/09/23 10/09/23 History
unit/gram topical ointment (Santyl)
insulin glargine 100 unit/mL (3 30 unit SC HS 10/09/23 10/09/23 History
mL) subcutaneous pen (Lantus
Solostar U-100 Insulin)
insulin lispro 100 unit/mL 15 sliding scale dose SC AC 10/09/23 10/09/23 History
subcutaneous pen (Humalog KwikPen
(U-100) Insulin)
magnesium hydroxide 400 mg/5 mL 2,400 mg PO B00INPC PRN if no bm 10/09/23 10/09/23 History
oral suspension (Milk of Magnesia) on day 2
sodium phosphates 19 gram-7 118 ml SC DAILYPRN PRN if no bm 10/09/23 10/09/23 History
gram/118 mL enema (Fleet Enema) aftr dulcolax
Review of Systems
-
History Source: Patient
Constitutional: Reports No Symptoms
EENT: Reports No Symptoms
Respiratory: Reports No Symptoms
Cardiac: Reports No Symptoms
Abdomen/GI: Reports No Symptoms
: Reports No Symptoms
Musculoskeletal: Reports No Symptoms
Skin: Reports Other (right foot with eschar over TMA site down lateral side with heel wound)
Neurological: Reports No Symptoms
Endocrine: Reports No Symptoms
Physical Exam
Vital Signs
Temp Pulse BP Pulse Ox
98.0 F 83 136/67 99
10/09/23 10:30 10/09/23 10:30 10/09/23 10:30 10/09/23 10:30
Lab Results
10/09/23 12:47
10/09/23 12:47
Physical Exam
General: No Apparent Distress
HEENT: Normocephalic, Anicteric and Atraumatic
Respiratory: Non Labored Respirations
Cardiac: Negative JVD
GI: Soft, Non Tender and Non Distended
Musculoskeletal: Edema (Trace RLE edema)
Skin: Warm
Neuro: AO x 3
Pulses: Right Dorsalis Pedis: Doppler and Right Posterior Tibial: Doppler
Assessment / Plan
-
Assessment: 73 year old male with post right foot TMA site, non-healing.
Plan:
Will likely need debridement of eschar, will review with director of scientific research Dr. Ojeda.
Continue antibiotics
Continue DAPT
Surgical plan per vascular attending
--- NOTE | 2023-10-09 14:51 | PN.DE.MGMTRT ---
Insulin Management
- -
10/09/2023: Diabetes Management Consult
73 year old male [facility]ad[facility] ([facility] a prolonged hospitalization 09/03 - 09/22) with changes in his surgical site of Right foot s/p TMA on 09/20.
Pt is noted for areas of blackness along his surgical site and left heel wound and has no sensation below the level of the ankle.
PMH: ASCVD, HTN, HLD, CKD IIIb, Anemia of chronic disease/REGGIE c/b anemia 2/2 CKD, T2DM, Nicotine dependency, PAD s/p angiogram with lithotripsy.
Last A1C was 10.1% on 09/04. He was discharged to ID on Lantus 40 units @ HS, NovoLog 25 units breakfast/dinner and 15 units with lunch. Metformin 1000 mg BID and Farxiga 10mg daily were both stopped during last admission.
Pt awake, A/Ox3, resting up in bed, offers no complaints, able to discuss diabetes mgt.
He is ordered Lantus 30 units @ HS, NovoLog 15 units AC and low corrective with meals by Hospitalist team.
Glucose on admission was 172 (V). Cr 1.5, eGFR 49.16.
Will cont insulin doses as ordered for now while pt undergoes workup for surgical interventions.
Will closely follow and adjust insulin doses if necessary.
Diabetes History
- -
Type of Diabetes: 2 requiring insulin
Pre-Admission Diabetes Regimen
10/09/23
12:47
Creatinine 1.5 H
Insulin Pump Settings
IP Diabetes Regimen
10/09/23
12:47
Glucose 172 H
Patient Education
--- NOTE | 2023-10-09 15:11 | CM ---
CM met with pt bedside
Pt admitted from [facility] where he was for ST rehab
Not paying for bedhold
Pt typically resides alone in a 1SH with 3 KEVAN
Pt is typically independent and has no DMEs at home
Pt recently recently discharged from a few weeks prior and sent to [facility]
From [facility], he was transferred to [facility]
Currently has picc as he was receiving IV abx at [facility]
Pt is hopeful to return to [facility] on dc
Return SNF referral sent via [facility]
Surgery, ID and PT/OT consults placed
Discharge Disposition- anticipate SNF return on dc
--- NOTE | 2023-10-09 15:39 | CON.ID ---
Consultation
-
Date/Time Consultation Requested: 10/09/2023 1346
Date/Time Consultation Performed: 10/09/2023 1530
Requesting Provider: Vy Pascual
Performing Provider: Dr. Burgos
Reason for Consultation: Foot infection
Chief Complaint / Past History
History of Present Illness
Flaquito Jamil is a 73-year-old man being evaluated at the request of Vy Pascual in regards to ongoing foot infection. History is obtained from chart review, along with patient interview.
The patient is known to the Infectious Disease service, having been seen earlier in the month during his hospitalization at [facility]. At that point in time he was being treated for right foot gangrene and he underwent resection of his
right third toe. He he was thereafter discharged on IV antibiotics, to continue a 6-week course through 10/16/2023.
He presents to the ER today from the [facility] facility where he was receiving his antibiotics secondary to 'changes' at the surgical site. The detention evidently spoke with his Commercial Real Estate Sales Manager, who recommended evaluation in the ER.
He denies any fevers or chills. He denies any spreading erythema up the leg. He denies any foot pain. He is not sure of any prior drainage from the area.
Past History
Additional Past Medical History:
CAD
HTN
Dyslipidemia
DM type II (uncontrolled; A1c = 10.1)
Nephrolithiasis
Additional Past Surgical History:
CABG
Appendectomy
Allergy History:
No Known Allergies Allergy (Verified 09/04/23 11:50)
Medications Reviewed: Yes
Current Antibiotics:
Unasyn 3 gm IV q24h
Social History
Tobacco: Smoker
Alcohol: Occasional
Drug: None
Personal: Single
Living: Alone
Employment: Retired
Family History
Family History: Not Pertinent
Review of Systems
Vital Signs
Temp Pulse Resp BP Pulse Ox
98.1 F 79 16 154/73 99
10/09/23 15:10 10/09/23 15:10 10/09/23 15:10 10/09/23 15:10 10/09/23 15:10
Physical Exam
Physical Exam
Constitutional: No Acute Distress, Comfortable, Chronically Ill and Non-toxic
Eyes: Pupils Equal, Pupils Round, No Conjunctival Hemorrhage and Sclera Anicteric
Oral: No Thrush and No Ulcers
Cardiovascular: Regular Rate and S1/S2; Negative S3/S4 or Murmur
Pulmonary: Clear and Non Labored; Negative Wheezes or Rales
Gastrointestinal: Soft and Non Tender
Genito-Urinary: Negative Caraballo
Extremities: Cyanosis (Areas of right foot); Negative Edema
Wound: Other (right foot with TMA. Incisions intact but with sig dry dermal gangrene. Heel area also with boggy dermal gangrene.)
Neurological: Awake and Alert
Psychological: Calm
.
Lab / Diagnostic Study Results
10/09/23 12:47
10/09/23 12:47
Abs Immat Gran (auto) 0.0 10^3/uL (0-0.05) 10/09/23 12:47
Absolute Neuts (auto) 5.5 10^3/uL (1.4-6.5) 10/09/23 12:47
Absolute Lymphs (auto) 1.4 10^3/uL (1.2-3.4) 10/09/23 12:47
Absolute Monos (auto) 0.7 10^3/uL (0.1-0.6) H 10/09/23 12:47
Absolute Basos (auto) 0.1 10^3/uL (0-0.2) 10/09/23 12:47
Immature Gran % 0.5 % (0-0.5) 10/09/23 12:47
Neutrophils % 67.9 % (42.2-75.2) 10/09/23 12:47
Lymphocytes % 17.4 % (20.5-51.1) L 10/09/23 12:47
Monocytes % 9.0 % (1.7-9.3) 10/09/23 12:47
Eosinophils % 4.2 % (0-6) 10/09/23 12:47
Basophils % 1.0 % (0-2) 10/09/23 12:47
Assessment / Plan
Right foot gangrene
- s/p I&D and resection of third toe 09/05/2023
- s/p revision and further debridement 09/13/2023
- s/p TMA with closure 09/21/23
PAD
CKD
Elevated ESR and CRP
CAD
HTN
Dyslipidemia
DM type II (uncontrolled; A1c = 10.1)
Nephrolithiasis
Recommendations:
Continue current course of Unasyn. (Prior cultures with MSSA, strep species and anaerobes)
Further workup as per Vascular and Podiatry.
Check ESR and CRP in AM.
Recheck foot x-ray.
--- NOTE | 2023-10-09 15:53 | PTCARENOTE ---
Received patient from ED. Stood and pivot from stretcher to chair with standby assist. AAOx3 able to make needs known. Oriented to room and use of call abbott. Denies pain to R foot. Call abbott within reach.
[2023-10-09] MEDS: UNASYN IV ×2 (15:57→22:32)
--- NOTE | 2023-10-09 16:30 | WOUNDNOTE ---
[facility] RN note: Patient admitted with worsening R TMA site. Patient admitted with [facility] rehab.
See H&P for complete history.
PMH: L TMA 09/21/[address] Ojeda, PICC CAROLE till 10/16/23, PAD, CKD3b, DM, HTN, smoker, CABG, 09/19/23 angiogram, lithotripsy RLE angioplasty.
Wound Location and type/assessment: Patient admitted with: Brown/black necrotic incisional wounds R TMA distal and plantar, R anterior proximal foot DTI suspect r/t PAD and from rolled gauze dressings, R heel necrotic wound unstageable d/t pressure
and PAD. L plantar distal 2nd toe dry diabetic black callus vs ulcer. L heel blanchable red. Pedal pulses heard via portable Doppler (L>R). Sacrum with small dull red stage 1 pressure injury.
Appetite: good.
Pressure redistribution devices in place: Centrella Max air. Patient moves self in bed. He stated he is NWB R foot and he was pivoting/transferring from bed to wheelchair NWB R foot at [facility].
Plan: ABD pads and Spandage stockinet applied R foot and R heel. R heel off bed with air chair cushion. L heel elevated off bed with pillow. Instructed patient to continue NWB R foot and instructed pressure injury prevention measures including
bilateral heel pressure relief measures. Protective silicone border foam applied to sacrum. Vascular, ID and podiatry following. Dr. Ojeda to manage R foot/heel wounds.
Discussed with ALEJO Isaacs. Care plan updated. Will follow peripherally as needed.
--- NOTE | 2023-10-09 16:30 | WOUNDNOTE ---
L PLANTAR DISTAL 2ND TOE
--- NOTE | 2023-10-09 16:30 | WOUNDNOTE ---
[facility] RN note: Patient admitted with worsening R TMA site. Patient admitted with [facility] rehab.
See H&P for complete history.
PMH: L TMA 09/21/[address] Ojeda, PICC CAROLE till 10/16/23, PAD, CKD3b, DM, HTN, smoker, CABG, 09/19/23 angiogram, lithotripsy RLE angioplasty.
Wound Location and type/assessment: Patient admitted with: Brown/black necrotic incisional wounds R TMA distal and plantar, R anterior proximal foot DTI suspect r/t PAD and from rolled gauze dressings, R heel necrotic wound unstageable d/t pressure
and PAD. L heel blanchable red. Pedal pulses heard via portable Doppler (L>R). Sacrum with small dull red stage 1 pressure injury.
Appetite: good.
Pressure redistribution devices in place: Centrella Max air. Patient moves self in bed. He stated he is NWB R foot and he was pivoting/transferring from bed to wheelchair NWB R foot at [facility].
Plan: ABD pads and Spandage stockinet applied R foot and R heel. R heel off bed with air chair cushion. L heel elevated off bed with pillow. Instructed patient to continue NWB R foot and instructed pressure injury prevention measures. Protective
silicone border foam applied to sacrum. Vascular, ID and podiatry following. Dr. Ojeda to manage R foot/heel wounds.
Discussed with ALEJO Isaacs. Care plan updated. Will follow peripherally as needed.
[2023-10-09 17:59] LABS: Glucose - Point of Care 119 mg/dl (70-99)
[2023-10-09] MEDS: NOVOLOG FLEXPEN SC (18:00)
--- NOTE | 2023-10-09 18:36 | CON.MD ---
Consultation - Medical
-
Patient admitted today from rehab center with concern for 'significant changes' in his right foot surgical site. Wound nurse called me this morning stating purulent drainage and dehiscence since his last dressing change and was therefore sent to
the ED today for assessment as he is at high risk for limb loss. PMH includes poorly controlled DM, and severe PAD. Last admission for sepsis and gas gangrene right foot resulting in surgical debridement of infected tissue. He then underwent
intravascular lithotripsy to the right STOCK ANALYST and right popliteal artery, balloon angioplasty to the distal STOCK ANALYST, and most recently intravascular lithotripsy to the right distal STOCK ANALYST, balloon angioplasty to the right tibioperoneal trunk. The last
procedure performed was a right transmetatarsal amputation and he was transferred to [facility] for rehab.
Patient is afebrile and denies pain/ chills. On examination, no cellulitis is noted, no purulent drainage present, and sutures in tact. Skin generally good color even at the most distal aspect of the foot. Medial heel wound with dry eschar present
but stable wound edges and no drainage.
Assessment /Plan
Right TMA stable at this time with no dehiscence and no sign of infection.
-Continue dry dressing changes and non weight bearing
Right medial ankle wound
-Dry, with stable wound edges. No indication of infection.
-Will eventually need debridement but not warranted at this time
Suggest readmission to [facility] unless further intervention is suggested by vascular surgery service
[2023-10-09] MEDS: TOPROL XL 50 MG PO (20:29)
[2023-10-09] MEDS: HEPARIN 5000 UNITS SC (20:29)
[2023-10-09] MEDS: LIPITOR 40 MG PO (20:29)
[2023-10-09 22:08] LABS: Glucose - Point of Care 206 mg/dl (70-99)
[2023-10-09] MEDS: LANTUS 0.3 UNITS SC (22:32)
[2023-10-10 02:03] VITALS: BP 121/59
--- NOTE | 2023-10-10 03:00 | PTCARENOTE ---
Resumed care of pt laying in bed sleeping. IV ABX infusing as ordered via right single picc. Right foot dressing C/D/I at this time. Pt denies any complaints. Vital signs stable. No changes in assessment noted at this time. WIll continue to monitor.
[2023-10-10] MEDS: UNASYN IV ×4 (03:16→21:29)
[2023-10-10 04:57] LABS: % Basophils 1.1 % (0-2); % Eosinophils 6.3 % (0-6); % Immature Granulocytes 0.4 % (0-0.5); % Lymphocytes 19.5 % (20.5-51.1); % Monocytes 9.1 % (1.7-9.3); % Neutrophils 63.6 % (42.2-75.2); Absolute Basophils 0.1 10^3/uL (0-0.2); Absolute Eosinophils 0.5 10^3/uL (0-0.7); Absolute Lymphocytes 1.6 10^3/uL (1.2-3.4); Absolute Monocytes 0.7 10^3/uL (0.1-0.6); Absolute Neutrophils 5.1 10^3/uL (1.4-6.5); Hematocrit 26.3 % (39.0-52.0); Hemoglobin 8.9 g/dL (13.0-18.0); Mean Corp Hgb Conc. 33.8 g/dL (33.0-37.0); Mean Corpuscular Hgb 27.9 pg (27.0-31.0); Mean Corpuscular Volume 82.4 fL (80.0-94.0); Nucleated Red Blood Cells % 0 % (-); Platelet Count 321 10^3/uL (130-400); Red Blood Cell Count 3.19 10^6/uL (4.70-6.10); Red Cell Dist. Width 14.9 % (11.5-14.5)
[2023-10-10 05:23] LABS: ALT (SGPT) 61 U/L (0-50); AST (SGOT) 32 U/L (17-59); Albumin 3.1 g/dl (3.5-5.0); Alkaline Phosphatase 144 U/L (38-126); Blood Urea Nitrogen 28 mg/dl (9-20); Calcium 8.8 mg/dl (8.4-10.2); Carbon Dioxide 26 mmol/L (22-30); Chloride 103 mmol/L (98-107); Estimated Creatinine Clearance 51 ml/min; Glucose 135 mg/dl (70-99); Potassium 4.7 mmol/L (3.5-5.1); Sodium 140 mmol/L (135-145); Total Bilirubin 0.6 mg/dl (0.2-1.3); Total Protein 6.6 g/dl (6.3-8.2)
--- NOTE | 2023-10-10 05:54 | PTCARENOTE ---
Pt OOB to [facility]. Pt had large soft BM. pt stand and pivot on left foot. Pt did well and now back to bed. Call abbott in reach. Will continue to monitor.
[2023-10-10 07:15] VITALS: BP 125/69
[2023-10-10] MEDS: NOVOLOG FLEXPEN SC ×3 (07:30→11:06)
[2023-10-10 07:35] LABS: Erythrocyte Sed Rate 127 mm/hour (0-20)
--- NOTE | 2023-10-10 07:37 | W.PN.HOSP.TC ---
Today's Communication/Plan
-
Glycemic control
Discharge planning SNF rehab
Assessment / Plan
Assessment / Plan
Physical Exam
General: Comfortable and Conversant
HEENT: NormoCephalic, Anicteric, PERRLA
Respiratory: Clear; No Wheezes, Rales or Rhonchi
Cardiac: S1/S2 and Regular Rhythm
GI: Soft, Non Tender, Non Distended, Normal Bowel Sounds present
Musculoskeletal: Right foot status post TMA
Skin: Warm, Dry, PICC line right upper extremity
Neuro: AO x 3 numbness right foot
Psych: Calm
73M [facility] rehab PAD, right lower extremity tenosynovitis, CKD, anemia of chronic disease, insulin dependent DM2, HTN, HLD, nicotine dependence, ASCVD x CABG 3 vessel 8 years ago referred for evaluation poor wound healing concern infection
recent right TMA for gangrene, on Unasyn for MSSA skilled nursing IV abx via right PICC.
#R lower extremity with third toe gangrene S/P left TMA 09/21/2023 w/ debridement on 09/13/2023
-Wound Cx: MSSA and strep
#LLE toe wound chronic
#RLE tenosynovitis
#PAD
-PICC line present is on Unasyn 3 g every every 6 until 10/16/2023 per ID
-vascular podiatry eval appreciated no surgical intervention indicated at this time, stable for discharge back to SNF rehab
-Follow CBC, BMP
-Consult PT/OT/case management
# Peripheral arterial disease status post angiogram
-Status post lithotripsy right lower extremity/angioplasty
Continue DAPT with aspirin, Plavix started on recent admission and continue statin
Vascular to follow in the office
#DM type 2 with circulatory complications/uncontrolled
-Accu-Cheks with SSI, 200 ADA diet
-Diabetes SCALPER OPERATOR appreciated
-continue insulin regimen as per Diabetes SCALPER OPERATOR
# CKD stage 3b
#History of recent metabolic acidosis
stable Cr
#Anemia of chronic disease with REGGIE complicated by anemia 2/2 CKD
treat infection
-monitor H&H
-Continue oral iron
#HTN
Cont norvasc and toprol
#HLD
Continue statin
#ASCVD/CABG 3 vessel 8 years ago
-Continue aspirin, statin
-cont BB
DVT prophylaxis
Subcu heparin
Full code
I spent a total of 40 minutes with the patient or on the floor. More than 50% of this time involved counseling and coordination of care.
Anticipated Discharge: Within 24 hours
Subjective/Interval History
-
Date of Service: October 10, 2023
no acute distress. comfortable.
Objective Data
-
Labs:
Laboratory Results
10/10/23
04:37
WBC 8.0
Hgb 8.9 L
Hct 26.3 L
Plt Count 321
Sodium 140
Potassium 4.7
Chloride 103
Carbon Dioxide 26
BUN 28 H
Creatinine 1.6 H
Glucose 135 H
Calcium 8.8
Total Bilirubin 0.6
AST 32
ALT 61 H
Alkaline Phosphatase 144 H
Vital Signs:
Vital Signs
Temp Pulse Resp BP Pulse Ox
98.1 F 87 18 121/59 98
10/09/23 23:50 10/10/23 02:03 10/09/23 23:50 10/10/23 02:03 10/09/23 23:50
I&O
10/09/23 10/10/23 10/11/23
06:59 06:59 06:59
Intake Total 620 / 620
Output Total 950 / 950
Balance -330 / -330
--- NOTE | 2023-10-10 07:52 | PN.DE.MGMTRT ---
Insulin Management
- -
10/10/2023: Diabetes Management Consult Follow up
Patient re-admitted from alf (after a prolonged hospitalization 09/03 - 09/22) with changes in his surgical site of Right foot s/p TMA on 09/20.
Pt is noted for areas of blackness along his surgical site and left heel wound and has no sensation below the level of the ankle.
PMH: ASCVD, HTN, HLD, CKD IIIb, Anemia of chronic disease/REGGIE c/b anemia 2/2 CKD, T2DM, Nicotine dependency, PAD s/p angiogram with lithotripsy.
Last A1C was 10.1% on 09/04. He was discharged to [facility] on Lantus 40 units @ HS, NovoLog 25 units breakfast/dinner and 15 units with lunch. Metformin 1000 mg BID and Farxiga 10mg daily were both stopped during last admission.
Pt awake, A/Ox3, resting up in bed, offers no complaints, able to discuss diabetes mgt.
Patient received 30 units @ hs last evening, fasting glucose this AM 135. Will make no change to lantus dose. Ordered NovoLog 15 units AC and low corrective, will continue today and assess for need for adjustments..
Cr 1.6, eGFR 45.60.
Will closely follow and adjust insulin doses if necessary.
Diabetes History
- -
Type of Diabetes: 2 requiring insulin
Pre-Admission Diabetes Regimen
10/09/23 10/10/23
12:47 04:37
Creatinine 1.5 H 1.6 H
Insulin Pump Settings
IP Diabetes Regimen
10/09/23 10/09/23 10/09/23
12:47 17:57 22:06
Glucose 172 H
POC Glucose 119 H 206 H
10/10/23
04:37
Glucose 135 H
POC Glucose
Patient Education
[2023-10-10 07:55] LABS: Glucose - Point of Care 151 mg/dl (70-99)
[2023-10-10] MEDS: HEPARIN 5000 UNITS SC ×2 (10:03→20:32)
[2023-10-10] MEDS: NORVASC 2.5 MG PO (10:03)
[2023-10-10] MEDS: VITAMIN D3 (cholecalciferol) 25 MCG PO (10:03)
[2023-10-10] MEDS: LOW STRENGTH ASPIRIN 81 MG PO (10:03)
[2023-10-10] MEDS: PLAVIX 75 MG PO (10:04)
[2023-10-10] MEDS: TOPROL XL 50 MG PO ×2 (10:04→20:31)
[2023-10-10 11:06] LABS: Glucose - Point of Care 143 mg/dl (70-99)
[2023-10-10] MEDS: NOVOLOG FLEXPEN-LOW RESISTANCE SC (11:13)
[2023-10-10] MEDS: NOVOLOG FLEXPEN 15 UNITS SC ×2 (11:13→17:07)
[2023-10-10 11:35] VITALS: BP 123/74; BP 99/63; PULSE 87; O2SAT 100
[2023-10-10 12:08] VITALS: BP 123/74; BP 99/63; PULSE 87
--- NOTE | 2023-10-10 12:12 | CM ---
Patient seen bedside.
Per [facility]'s home no bed hold and no beds available.
Spoke with patients friend Nisha and referrals to be sent to [facility].
Medicare.gov web site options given, and and hospital options list reviewed.
Plan: Skilled rehab once bed available
[2023-10-10 15:05] VITALS: BP 122/65
--- NOTE | 2023-10-10 15:22 | W.PN.ID1 ---
Date of Service
Date of Service: October 10, 2023
Today's Communication
Continue antibiotics.
Assessment / Plan
Right foot gangrene
- s/p I&D and resection of third toe 09/05/2023
- s/p revision and further debridement 09/13/2023
- s/p TMA with closure 09/21/23
PAD
CKD
Elevated ESR and CRP
CAD
HTN
Dyslipidemia
DM type II (uncontrolled; A1c = 10.1)
Nephrolithiasis
Recommendations:
Continue current course of Unasyn. End date remains 10/16/23. (Prior cultures with MSSA, strep species and anaerobes)
Further workup as per Vascular and Podiatry.
Given underlying PAD and diabetes, patient at significant risk for limb loss.
����������������������������������������������������������
Chief Complaint
-: Other (Osteomyelitis)
Subjective / Review of Systems
Review of Systems: No Chills
Vital Signs / Physical Exam
Vital Signs
Vital Signs
Temp Pulse Resp BP Pulse Ox
98 F 83 16 125/69 97
10/10/23 07:15 10/10/23 10:04 10/10/23 07:15 10/10/23 10:04 10/10/23 07:15
Physical Exam
Constitutional: No Acute Distress, Comfortable and Non-toxic
Eyes: Sclera Anicteric
Cardiovascular: S1/S2; Negative S3/S4
Pulmonary: Non Labored
Gastrointestinal: Soft and Non Tender
Extremities: Other (Right foot dressed. No erythema extending up leg.)
Neurological: Awake and Alert
Psychological: Calm
Objective Data
Lab Data
Lab Results
10/10/23 04:37
10/10/23 04:37
ESR 127 mm/hour (0-20) H 10/10/23 04:37
Estimated Creat Clear 51 ml/min 10/10/23 04:37
Total Bilirubin 0.6 mg/dl (0.2-1.3) 10/10/23 04:37
AST 32 U/L (17-59) 10/10/23 04:37
ALT 61 U/L (0-50) H 10/10/23 04:37
Alkaline Phosphatase 144 U/L (38-126) H 10/10/23 04:37
C-Reactive Protein 55.00 mg/L (0.0-10.00) H 10/10/23 04:37
Most recent labs reviewed.
Micro Results:
10/09/23 20:35 MRSA Screen - Pending
Nose
Imaging:
10/09/2023 X-ray right foot: Postoperative changes of transmetatarsal amputation with unchanged soft tissue thickening and irregularity along the distal soft tissues. There is no evidence of acute osseous abnormality.
[2023-10-10 15:46] VITALS: BMI 23.4
[2023-10-10 16:10] LABS: Glucose - Point of Care 198 mg/dl (70-99)
[2023-10-10] MEDS: NOVOLOG FLEXPEN-LOW RESISTANCE 1 UNITS SC (17:08)
[2023-10-10] MEDS: LIPITOR 40 MG PO (21:29)
[2023-10-10] MEDS: LANTUS 0.3 UNITS SC (21:33)
[2023-10-10 21:34] LABS: Glucose - Point of Care 139 mg/dl (70-99)
[2023-10-10 23:00] VITALS: BP 119/62
[2023-10-11] MEDS: UNASYN IV ×4 (02:53→22:13)
--- NOTE | 2023-10-11 07:24 | PN.DE.MGMTRT ---
Insulin Management
- -
10/11/2023: Diabetes Management Consult Follow up
Patient re-admitted from care home (after a prolonged hospitalization 09/03 - 09/22) with changes in his surgical site of Right foot s/p TMA on 09/20.
Pt is noted for areas of blackness along his surgical site and left heel wound and has no sensation below the level of the ankle.
PMH: ASCVD, HTN, HLD, CKD IIIb, Anemia of chronic disease/REGGIE c/b anemia 2/2 CKD, T2DM, Nicotine dependency, PAD s/p angiogram with lithotripsy.
Last A1C was 10.1% on 09/04. He was discharged to [facility] on Lantus 40 units @ HS, NovoLog 25 units breakfast/dinner and 15 units with lunch. Metformin 1000 mg BID and Farxiga 10mg daily were both stopped during last admission.
Pt awake, A/Ox3, resting up in bed, offers no complaints, able to discuss diabetes mgt.
Glucose range 10/09 135 to 198, required only 1 unit of corrective insulin. Will continue NovoLog 15 units AC and low corrective. Patient received 30 units @ hs last evening, fasting glucose this AM 134. Will make no change to lantus dose.
Cr 1.6, eGFR 45.60.
Reviewed steps for insulin pen use and administration. Nursing to reinforce.
Will follow for further needed adjustments.
Diabetes History
- -
Type of Diabetes: 2 requiring insulin
Pre-Admission Diabetes Regimen
Insulin Pump Settings
IP Diabetes Regimen
10/10/23 10/10/23 10/10/23
07:51 11:05 16:08
POC Glucose 151 H 143 H 198 H
10/10/23
21:32
POC Glucose 139 H
Meal type: Breakfast
Patient Education
--- NOTE | 2023-10-11 07:31 | W.PN.HOSP.TC ---
Today's Communication/Plan
-
cont current care
Medically stable awaiting SNF placement
Assessment / Plan
Assessment / Plan
Physical Exam
General: Comfortable and Conversant
HEENT: NormoCephalic, Anicteric, PERRLA
Respiratory: Clear; No Wheezes, Rales or Rhonchi
Cardiac: S1/S2 and Regular Rhythm
GI: Soft, Non Tender, Non Distended, Normal Bowel Sounds present
Musculoskeletal: Right foot status post TMA
Skin: Warm, Dry, PICC line right upper extremity
Neuro: AO x 3 numbness right foot
Psych: Calm
73M [facility] rehab PAD, right lower extremity tenosynovitis, CKD, anemia of chronic disease, insulin dependent DM2, HTN, HLD, nicotine dependence, ASCVD x CABG 3 vessel 8 years ago referred for evaluation poor wound healing concern infection
recent right TMA for gangrene, on Unasyn for MSSA [employer] IV abx via right PICC.
#R lower extremity with third toe gangrene S/P left TMA 09/21/2023 w/ debridement on 09/13/2023
-Wound Cx: MSSA and strep
#LLE toe wound chronic
#RLE tenosynovitis
#PAD
-PICC line present is on Unasyn 3 g every every 6 until 10/16/2023 per ID
-vascular podiatry eval appreciated no surgical intervention indicated at this time, stable for discharge back to SNF rehab
-Follow CBC, BMP
-Consult PT/OT/case management
# Peripheral arterial disease status post angiogram
-Status post lithotripsy right lower extremity/angioplasty
Continue DAPT with aspirin, Plavix started on recent admission and continue statin
Vascular to follow in the office
#DM type 2 with circulatory complications/uncontrolled
-Accu-Cheks with SSI, 200 ADA diet
-Diabetes BURNER HAND appreciated
-continue insulin regimen as per Diabetes BURNER HAND
# CKD stage 3b
#History of recent metabolic acidosis
stable Cr
#Anemia of chronic disease with REGGIE complicated by anemia 2/2 CKD
treat infection
-monitor H&H
-Continue oral iron
#HTN
Cont norvasc and toprol
#HLD
Continue statin
#ASCVD/CABG 3 vessel 8 years ago
-Continue aspirin, statin
-cont BB
PT/OT snf rehab
DVT prophylaxis
Subcu heparin
Full code
Medically stable awaiting SNF placement
I spent a total of 40 minutes with the patient or on the floor. More than 50% of this time involved counseling and coordination of care.
Anticipated Discharge: Within 24 hours
Subjective/Interval History
-
Date of Service: October 11, 2023
No acute distress. Comfortable. Denies new acute issues.
Objective Data
-
Vital Signs:
Vital Signs
Temp Pulse Resp BP Pulse Ox
98.1 F 81 14 119/62 97
10/10/23 23:00 10/10/23 23:00 10/10/23 23:00 10/10/23 23:00 10/11/23 03:30
I&O
10/10/23 10/11/23 10/12/23
06:59 06:59 06:59
Intake Total 620 / 620 840 / 840
Output Total 950 / 950 800 / 800
Balance -330 / -330 40 / 40
[2023-10-11 07:46] VITALS: BP 101/56
--- NOTE | 2023-10-11 08:08 | WOUNDNOTE ---
WOC RN note: Confirmed R foot and R heel wound care and NWB R foot with Dr. Ojeda. Care plan and discharge instructions updated.
[2023-10-11 08:22] LABS: Glucose - Point of Care 134 mg/dl (70-99)
[2023-10-11] MEDS: HEPARIN 5000 UNITS SC ×2 (09:10→20:36)
[2023-10-11] MEDS: NOVOLOG FLEXPEN 15 UNITS SC ×3 (09:10→18:47)
[2023-10-11] MEDS: NORVASC 2.5 MG PO (09:10)
[2023-10-11] MEDS: LOW STRENGTH ASPIRIN 81 MG PO (09:11)
[2023-10-11] MEDS: PLAVIX 75 MG PO (09:11)
[2023-10-11] MEDS: VITAMIN D3 (cholecalciferol) 25 MCG PO (09:11)
[2023-10-11] MEDS: DAKIN'S SOLUTION 0.125% 1/4 STRENGTH 473 ML TOPICAL (09:11)
[2023-10-11] MEDS: NOVOLOG FLEXPEN-LOW RESISTANCE SC ×2 (09:11→18:48)
[2023-10-11] MEDS: TOPROL XL 50 MG PO ×2 (09:11→20:36)
--- NOTE | 2023-10-11 12:13 | W.PN.ID1 ---
Date of Service
Date of Service: October 11, 2023
Today's Communication
Continue antibiotics.
Assessment / Plan
Right foot gangrene
- s/p I&D and resection of third toe 09/05/2023
- s/p revision and further debridement 09/13/2023
- s/p TMA with closure 09/21/23
PAD
CKD
Elevated ESR and CRP
CAD
HTN
Dyslipidemia
DM type II (uncontrolled; A1c = 10.1)
Nephrolithiasis
Recommendations:
Continue current course of Unasyn. End date remains 10/16/23. (Prior cultures with MSSA, strep species and anaerobes)
Given underlying PAD and diabetes, patient at significant risk for limb loss. Will need close follow-up as an outpatient.
����������������������������������������������������������
Chief Complaint
-: Other (Osteomyelitis right foot)
Subjective / Review of Systems
Review of Systems: No Fever, No Chills, No Abdominal Pain and Other (No foot pain.)
Vital Signs / Physical Exam
Vital Signs
Vital Signs
Temp Pulse Resp BP Pulse Ox
98.2 F 83 16 101/56 96
10/11/23 07:46 10/11/23 07:46 10/11/23 07:46 10/11/23 07:46 10/11/23 07:46
Physical Exam
Constitutional: No Acute Distress, Comfortable and Non-toxic
Eyes: Sclera Anicteric
Cardiovascular: S1/S2; Negative S3/S4
Pulmonary: Non Labored
Gastrointestinal: Soft and Non Tender
Extremities: Other (Right foot dressed. No erythema extending up leg. No appreciable malodor. No dressing strikethrough.); Negative Edema
Neurological: Awake and Alert
Psychological: Calm
Objective Data
Lab Data
Lab Results
10/10/23 04:37
10/10/23 04:37
ESR 127 mm/hour (0-20) H 10/10/23 04:37
Estimated Creat Clear 51 ml/min 10/10/23 04:37
Total Bilirubin 0.6 mg/dl (0.2-1.3) 10/10/23 04:37
AST 32 U/L (17-59) 10/10/23 04:37
ALT 61 U/L (0-50) H 10/10/23 04:37
Alkaline Phosphatase 144 U/L (38-126) H 10/10/23 04:37
C-Reactive Protein 55.00 mg/L (0.0-10.00) H 10/10/23 04:37
Most recent labs reviewed.
Micro Results:
10/09/23 20:35 MRSA Screen - Final
Nose No Methicillin Resistant Staphylococcus aureus isolated.
Imaging:
10/09/2023 X-ray right foot: Postoperative changes of transmetatarsal amputation with unchanged soft tissue thickening and irregularity along the distal soft tissues. There is no evidence of acute osseous abnormality.
[2023-10-11 12:17] LABS: Glucose - Point of Care 157 mg/dl (70-99)
[2023-10-11] MEDS: NOVOLOG FLEXPEN-LOW RESISTANCE 1 UNITS SC (12:32)
[2023-10-11 16:00] VITALS: BP 135/71
[2023-10-11 16:33] LABS: Glucose - Point of Care 117 mg/dl (70-99)
--- NOTE | 2023-10-11 16:53 | CM ---
Spoke with Norma in admissions at [facility] who requested return call in the am and she can relay her bed availability. Spoke with patient to update. He deferred to his friend, Nisha. Placed a call to Nisha who stated that in addition to [facility] (which
can't take patient due to lack of beds), [facility], [facility] and [facility] would be ok. Will fax to these facilities through [employer].
Plan: Case management will continue to follow and assist with discharge planning. SNF when bed is found.
[2023-10-11 21:53] LABS: Glucose - Point of Care 162 mg/dl (70-99)
[2023-10-11] MEDS: LANTUS 0.3 UNITS SC (22:13)
[2023-10-11] MEDS: LIPITOR 40 MG PO (22:13)
[2023-10-11 23:31] VITALS: BP 140/70
[2023-10-12] MEDS: TYLENOL 650 MG PO (03:59)
[2023-10-12] MEDS: UNASYN IV ×2 (03:59→10:22)
--- NOTE | 2023-10-12 07:34 | PN.DE.MGMTRT ---
Insulin Management
- -
10/12/2023: Diabetes Management Consult Follow up
[facility] 09/03 - 09/22) with changes in his surgical site of Right foot s/p TMA on 09/20.
Pt is noted for areas of blackness along his surgical site and left heel wound and has no sensation below the level of the ankle.
PMH: ASCVD, HTN, HLD, CKD IIIb, Anemia of chronic disease/REGGIE c/b anemia 2/2 CKD, T2DM, Nicotine dependency, PAD s/p angiogram with lithotripsy.
Last A1C was 10.1% on 09/04. He was discharged to [facility] on Lantus 40 units @ HS, NovoLog 25 units breakfast/dinner and 15 units with lunch. Metformin 1000 mg BID and Farxiga 10mg daily were both stopped during last admission.
Pt awake, A/Ox3, resting up in bed, offers no complaints, able to discuss diabetes mgt.
Glucose range 10/10 117 to 157, required only 1 unit of corrective insulin. Will continue NovoLog 15 units AC and low corrective. Patient received 30 units @ hs last evening, fasting glucose this AM 134. Will make no change to lantus dose.
10/10 Cr 1.6, eGFR 45.60.
Reviewed steps for insulin pen use and administration. Nursing to reinforce. Nursing reports patient did excellent with prep of insulin pen and self injection, required no verbal cues.
Will follow for further needed adjustments.
Diabetes History
- -
Type of Diabetes: 2 requiring insulin
Pre-Admission Diabetes Regimen
Insulin Pump Settings
IP Diabetes Regimen
10/11/23 10/11/23 10/11/23
08:20 12:15 16:32
POC Glucose 134 H 157 H 117 H
10/11/23
21:52
POC Glucose 162 H
Patient Education
[2023-10-12 07:38] VITALS: BP 117/67
[2023-10-12 07:47] LABS: Glucose - Point of Care 133 mg/dl (70-99)
[2023-10-12] MEDS: NOVOLOG FLEXPEN-LOW RESISTANCE SC (08:27)
[2023-10-12] MEDS: LOW STRENGTH ASPIRIN 81 MG PO (08:28)
[2023-10-12] MEDS: TOPROL XL 50 MG PO (08:28)
[2023-10-12] MEDS: HEPARIN 5000 UNITS SC (08:28)
[2023-10-12] MEDS: PLAVIX 75 MG PO (08:28)
[2023-10-12] MEDS: NORVASC 2.5 MG PO (08:28)
[2023-10-12] MEDS: VITAMIN D3 (cholecalciferol) 25 MCG PO (08:28)
[2023-10-12] MEDS: DAKIN'S SOLUTION 0.125% 1/4 STRENGTH 473 ML TOPICAL (08:29)
[2023-10-12] MEDS: NOVOLOG FLEXPEN 15 UNITS SC (10:21)
--- NOTE | 2023-10-12 11:14 | CM ---
Addendum entered by JASON Da Silva 10/12/23 13:12:
Patient stated that he feels [place] is too far and asked about availability at [facility], [facility], and [facility]. Spoke with admissions previously from [facility] (T[facility]) who denied beds this week as did admissions at other requested facilities.
Patient asked for CM to speak to his friend, Nisha. Spoke with her and explanation was provided that there are three facilities in [place], [facility] and [facility] however Nisha did not like their star ratings.
She was agreeable to [facility] despite the distance.
IMM reviewed. She was agreeable as was patient. Now on chart.
Patient and his friend are agreeable to [place].
Patient will need to go by w/c saravanan.
Original Note:
Placed a call to Norma in admissions at [facility]. She stated that she has no bed availability for today. Placed a call to [facility] and spoke with Vilma in admissions who confirmed that she can accept patient today. # For report [phone]
and fax [phone]. Will determine transport. Will update attending about bed availability as well as [facility] and RN.
Plan: Case management will continue to follow and assist with discharge planning. [place] when stable.
--- NOTE | 2023-10-12 11:44 | W.PN.ID1 ---
Date of Service
Date of Service: October 12, 2023
Today's Communication
Continue current course of Unasyn. Await disposition.
Assessment / Plan
Right foot gangrene
- s/p I&D and resection of third toe 09/05/2023
- s/p revision and further debridement 09/13/2023
- s/p TMA with closure 09/21/23
PAD
CKD
Elevated ESR and CRP
CAD
HTN
Dyslipidemia
DM type II (uncontrolled; A1c = 10.1)
Nephrolithiasis
Recommendations:
Continue current course of Unasyn. End date remains 10/16/23. (Prior cultures with MSSA, strep species and anaerobes)
Given underlying PAD and diabetes, patient at significant risk for limb loss. Will need close follow-up as an outpatient.
Await disposition.
����������������������������������������������������������
Chief Complaint
-: Other (Osteomyelitis right foot)
Subjective / Review of Systems
Review of Systems: No Fever and No Chills
Vital Signs / Physical Exam
Vital Signs
Vital Signs
Temp Pulse Resp BP Pulse Ox
98.1 F 98 16 117/67 99
10/12/23 07:38 10/12/23 08:28 10/12/23 07:38 10/12/23 08:28 10/12/23 08:00
Physical Exam
Constitutional: No Acute Distress, Comfortable and Non-toxic
Eyes: Sclera Anicteric
Cardiovascular: S1/S2; Negative S3/S4
Pulmonary: Non Labored
Gastrointestinal: Soft and Non Tender
Extremities: Other (Right foot dressed. No erythema extending up leg. No appreciable malodor. No dressing strikethrough.); Negative Edema
Neurological: Awake and Alert
Psychological: Calm
Objective Data
Lab Data
Lab Results
10/10/23 04:37
10/10/23 04:37
ESR 127 mm/hour (0-20) H 10/10/23 04:37
Estimated Creat Clear 51 ml/min 10/10/23 04:37
Total Bilirubin 0.6 mg/dl (0.2-1.3) 10/10/23 04:37
AST 32 U/L (17-59) 10/10/23 04:37
ALT 61 U/L (0-50) H 10/10/23 04:37
Alkaline Phosphatase 144 U/L (38-126) H 10/10/23 04:37
C-Reactive Protein 55.00 mg/L (0.0-10.00) H 10/10/23 04:37
Most recent labs reviewed.
Micro Results:
10/09/23 20:35 MRSA Screen - Final
Nose No Methicillin Resistant Staphylococcus aureus isolated.
Imaging:
10/09/2023 X-ray right foot: Postoperative changes of transmetatarsal amputation with unchanged soft tissue thickening and irregularity along the distal soft tissues. There is no evidence of acute osseous abnormality.
--- NOTE | 2023-10-12 12:01 | W.PN.HOSP.TC ---
Today's Communication/Plan
-
Monitor vital signs
see plan
Discharge today
Continue antibiotics
time of discharge 37minutes
Assessment / Plan
Assessment / Plan
Physical Exam
General: Comfortable and Conversant
HEENT: NormoCephalic, Anicteric, PERRLA
Respiratory: Clear; No Wheezes, Rales or Rhonchi
Cardiac: S1/S2 and Regular Rhythm
GI: Soft, Non Tender, Non Distended, Normal Bowel Sounds present
Musculoskeletal: Right foot status post TMA
Skin: Warm, Dry, PICC line right upper extremity
Neuro: AO x 3 numbness right foot
Psych: Calm
73M [facility] rehab PAD, right lower extremity tenosynovitis, CKD, anemia of chronic disease, insulin dependent DM2, HTN, HLD, nicotine dependence, ASCVD x CABG 3 vessel 8 years ago referred for evaluation poor wound healing concern infection
recent right TMA for gangrene, on Unasyn for MSSA termination clerk IV abx via right PICC.
#R lower extremity with third toe gangrene S/P left TMA 09/21/2023 w/ debridement on 09/13/2023
-Wound Cx: MSSA and strep
#LLE toe wound chronic
#RLE tenosynovitis
#PAD
-PICC line present is on Unasyn 3 g every every 6 until 10/16/2023 per ID
-vascular podiatry eval appreciated no surgical intervention indicated at this time, stable for discharge back to SNF rehab
-Follow CBC, BMP
-Consult PT/OT/case management
# Peripheral arterial disease status post angiogram
-Status post lithotripsy right lower extremity/angioplasty
Continue DAPT with aspirin, Plavix started on recent admission and continue statin
Vascular to follow in the office
#DM type 2 with circulatory complications/uncontrolled
-Accu-Cheks with SSI, 200 ADA diet
-Diabetes FBI SHARPSHOOTER appreciated
-continue insulin regimen as per Diabetes FBI SHARPSHOOTER
# CKD stage 3b
#History of recent metabolic acidosis
stable Cr
#Anemia of chronic disease with REGGIE complicated by anemia 2/2 CKD
treat infection
-monitor H&H
-Continue oral iron
#HTN
Cont norvasc and toprol
#HLD
Continue statin
#ASCVD/CABG 3 vessel 8 years ago
-Continue aspirin, statin
-cont BB
PT/OT snf rehab
DVT prophylaxis
Subcu heparin
Full code
Medically stable awaiting SNF placement
Anticipated Discharge: Today
Subjective/Interval History
-
Date of Service: October 12, 2023
denies pain
Objective Data
-
Vital Signs:
Vital Signs
Temp Pulse Resp BP Pulse Ox
98.1 F 98 16 117/67 99
10/12/23 07:38 10/12/23 08:28 10/12/23 07:38 10/12/23 08:28 10/12/23 08:00
I&O
10/11/23 10/12/23 10/13/23
06:59 06:59 06:59
Intake Total 840 / 840 1500 / 1500
Output Total 800 / 800 2000 / 2000
Balance 40 / 40 -500 / -500
--- NOTE | 2023-10-12 12:07 | W.DCSUMMARY ---
Discharge Summary
Discharge Data
Date of Admission: 10/09/23
Date of Discharge: 10/12/23
-
Pending Results: No
Hospital Course
73-year-old male with past with history of PAD status post recent right TMA amputation, right lower extremity tenosynovitis, CKD, anemia current disease, insulin-dependent diabetes mellitus, hypertension, hyperlipidemia, nicotine dependence, CAD
status post CABG came to the hospital for evaluation of poor wound healing concerning for worsening infection. Patient was evaluated by podiatry and vascular surgery and they both recommended no surgical intervention. Patient was all seen by
infection disease who instructed to continue his outpatient Unasyn. Patient was eval by physical therapy recommended SNF. Once patient had SNF bed, he was then discharged to SNF with instructions to follow-up with all the physicians outpatient.
Discharge Plan
-
Patient Disposition: Long-Term/SNF
Discharge Diagnosis/Procedures: Right lower extremity with third toe gangrene S/P left TMA 09/21/2023 w/ debridement on 09/13/2023
Peripheral arterial disease status post angiogram
-Status post lithotripsy right lower extremity/angioplasty
Ambulatory dysfunction
Diet: As tolerated
Activity: As tolerated
Driving Restrictions: Not until seen by your Dr
Bathing Restrictions: None
Activity Restrictions/Additional Instructions:
Wound Care Instructions
R TMA, R heel as per stencil inspector's instructions.
Weight bear restriction and activity restriction as per stencil inspector's instructions.
Elevate heels off bed with pillow/s.
Pressure redistributing chair cushion (i.e. Air chair cushion).
Follow up with Dr. Caraballo.
Follow up with Dr. Ojeda.
Continue current course of Unasyn. End date remains 10/16/23. (Prior cultures with MSSA, strep species and anaerobes)
Referrals:
Speedy Caraballo III, MD [Active] -
Alton Burgos DO [Active] -
Michi Thomas MD [Family Provider] - in less than 1 week
Cele Ojeda DPM [Specified Professional Personl] -
Prescriptions:
New
Dakin's Solution 0.125 % Solution
1 applic topical DAILY Qty: 0 0RF
Continued
metoprolol succinate 50 mg tablet extended release 24 hr
50 mg PO BID
atorvastatin 40 MG tablet
40 mg PO HS
amlodipine 2.5 mg Tablet
2.5 mg PO DAILY Qty: 30 0RF
aspirin 81 mg Tablet,Chewable
81 mg PO DAILY Qty: 30 0RF
clopidogrel 75 mg Tablet
75 mg PO DAILY Qty: 30 0RF
acetaminophen [Tylenol] 325 mg Tablet
325 mg PO Q4HPRN PRN (Reason: mild pain)
magnesium hydroxide [Milk of Magnesia] 400 mg/5 mL Suspension
2,400 mg PO [id number] PRN (Reason: if no bm on day 2)
ampicillin-sulbactam [Unasyn] 3 gram Recon Soln
3 g IM Q6H
bisacodyl [Dulcolax (bisacodyl)] 10 mg Suppository
10 mg MN DAILYPRN PRN (Reason: if no bm aftr mom)
Fleet Enema 19-7 gram/118 mL Enema
118 ml MN DAILYPRN PRN (Reason: if no bm aftr dulcolax)
Santyl 250 unit/gram Ointment
1 applic TOPICAL Q72H
insulin lispro [Humalog KwikPen Insulin] 100 unit/mL Insulin Pen
15 sliding scale dose SC AC
cholecalciferol (vitamin D3) [Vitamin D3] 25 mcg (1,000 unit) Tablet
25 mcg PO DAILY
insulin glargine [Lantus Solostar U-100 Insulin] 100 unit/mL (3 mL) Insulin Pen
30 unit SC HS
Discharge Orders:
Discharge Patient (As Directed); Ordered 10/12/23
Ordered By: Quoc Head
Discharge Date and Time
Discharge Date/Time: 10/12/23 13:35
Print Language: SERBIAN
[2023-10-12] MEDS: NOVOLOG FLEXPEN SC (13:00)
== END 2023-10-12 13:35 | DRG 638 ==
LOC: 3 WEST ACU 13:55
PROVIDERS: Clinical Nurse Specialist Family Health; ADMITTING PHYSICIAN Internal Medicine; ATTENDING PHYSICIAN Internal Medicine; CONSULT PHYSICIAN Podiatrist Foot & Ankle Surgery; CONSULT PHYSICIAN Surgery Vascular Surgery; EMERGENCY PHYSICIAN Emergency Medicine; FAMILY PHYSICIAN Family Medicine; OTHER PHYSICIAN Internal Medicine Infectious Disease
PROC: 5A09357 Assistance with Respiratory Ventilation, Less than 24 Consecutive Hours, Continuous Positive Airway Pressure (ICD-10-PCS; 2023-10-10)
DX: E11.621 Type 2 diabetes mellitus with foot ulcer (principal); I96 Gangrene, not elsewhere classified; L97.529 Non-pressure chronic ulcer of other part of left foot with unspecified severity; D63.1 Anemia in chronic kidney disease; E11.22 Type 2 diabetes mellitus with diabetic chronic kidney disease; I12.9 Hypertensive chronic kidney disease with stage 1 through stage 4 chronic kidney disease, or unspecified chronic kidney disease; N18.32 Chronic kidney disease, stage 3b; E78.00 Pure hypercholesterolemia, unspecified; F17.200 Nicotine dependence, unspecified, uncomplicated; M65.9 Synovitis and tenosynovitis, unspecified; I25.10 Atherosclerotic heart disease of native coronary artery without angina pectoris; Z95.1 Presence of aortocoronary bypass graft; R74.01 Elevation of levels of liver transaminase levels; R74.8 Abnormal levels of other serum enzymes; Z98.890 Other specified postprocedural states; Z89.421 Acquired absence of other right toe(s); Z79.02 Long term (current) use of antithrombotics/antiplatelets; Z79.82 Long term (current) use of aspirin; Z79.4 Long term (current) use of insulin; Z79.84 Long term (current) use of oral hypoglycemic drugs; Z79.899 Other long term (current) drug therapy; Z87.442 Personal history of urinary calculi; Z86.19 Personal history of other infectious and parasitic diseases; Z90.89 Acquired absence of other organs
CPT/HCPCS: 71045; 73630; 80048; 80053; 82962; 85025; 85652; 86140; 87070; 97162; 97166; 99285

== ENCOUNTER → 2023-11-14 08:50 | Day surgery (SDC) | payer MEDICARE, OTHER, SELFPAY ==
[2023-11-08 09:48] VITALS: BMI 22.5
[2023-11-14] VITALS (13 sets, daily range): BP systolic 120–137; BP diastolic 60–91; BMI 23.1
[2023-11-14 09:36] LABS: Glucose - Point of Care 206 mg/dl (70-99)
[2023-11-14] MEDS: NSS 259 ML IV (09:40)
--- NOTE | 2023-11-14 13:22 | SUR.PHASEI ---
Rec'd sleepy on stretcher oriented x 3 by RN, unable to fully access R leg due to steth tech in pulling and holding pressure, no c/o at present
[2023-11-14 13:32] LABS: Glucose - Point of Care 181 mg/dl (70-99)
[2023-11-14] MEDS: PLAVIX 300 MG PO (13:47)
[2023-11-14] MEDS: LOW STRENGTH ASPIRIN 81 MG PO (13:47)
[2023-11-14] MEDS: NSS 1000 IV (14:55)
--- NOTE | 2023-11-14 16:01 | OR.RPT ---
Operative Report
Operative Report
Date of Operation: 11/14/2023
Pre Op Diagnosis: Chronic limb threatening ischemia, right lower extremity with slow healing transmetatarsal amputation
Post Op Diagnosis: Chronic limb threatening ischemia, right lower extremity with slow healing transmetatarsal amputation
Procedure:
1.) Balloon angioplasty of right plantar branch stenosis and distal posterior tibial artery occlusion (2.5 mm x 120 mm; 3 mm x 80 mm angioplasty balloons)
2.) Balloon angioplasty of right TP trunk stenosis (3 mm x 80 mm angioplasty balloon)
3.) Diagnostic right lower extremity arteriogram
4.) Ultrasound-guided percutaneous ANTEGRADE access to the right common femoral artery
Surgeon: Speedy Caraballo III, MD
Rn Dialysis: Betty Arnett MD PGY-8
Anesthesia: Sedation with local
Fluoroscopy:
42 min
51 mGy
13.2 Gy.cm2
Complications: None
Estimated Blood Loss: 10 cc
History and Indications for Procedure: 73-year-old male with known history of severe tibial and small vessel occlusive disease and a slow healing transmetatarsal amputation. Preoperative assessment with podiatry and myself raise concern for stalled
wound healing and he was taken back to the operating room for an arteriogram with possible endovascular intervention as part of limb preservation efforts
Procedure in Detail: Flaquito Jamil was correctly identified and placed supine on the operating table. After adequate induction of anesthesia the bilateral groins were prepped and draped in the usual sterile fashion. A timeout was performed with the
nursing and anesthesia staff confirming the patient's identity as well as the nature and laterality of the procedure.
The right common femoral artery was identified under ultrasound guidance. The artery was patent. The superior and inferior aspects of the femoral head were identified with radiographic guidance and marked at the skin level. The proposed puncture
site was infiltrated with local anesthesia. Under ultrasound guidance we accessed the right common femoral artery with a micropuncture needle in an antegrade fashion, advanced the wire into the superficial femoral artery and then upsized to a 5 Fr
sheath over a Bentson wire.
A diagnostic RIGHT lower extremity arteriogram was then performed which demonstrated the following:
RIGHT LOWER EXTREMITY:
Superficial femoral artery: Patent with areas of mild stenosis distally
Popliteal artery: Patent. Scattered calcification and mild stenosis
Anterior tibial artery: Patent short stump but occluded thereafter. Faint reconstitution of the dorsalis pedis in the foot which was diseased
Tibioperoneal trunk: Patent. Focal high-grade stenosis distally
Peroneal artery: Patent with no significant stenosis identified
Posterior tibial artery: Patent proximally and mid segment. Occluded distally. Robust collateral network which reconstituted plantar branches in the foot. Plantar branches were small diffusely.
ENDOVASCULAR INTERVENTION: Systemic heparin was administered. Selected the posterior tibial artery artery under roadmap guidance with [place] catheter and glidewire. The posterior tibial occlusion was crossed with a [address] wire and 0.014
Quick[place]. The wire and catheter were advanced into a distal plantar artery in the foot and I confirmed position with an arteriogram. A 2.5 x 120 mm angioplasty balloon was advanced across the posterior tibial occlusion under roadmap guidance. The
balloon was positioned in the desired location into the distal aspect of the plantar branch in the foot and inflated to nominal pressure. The balloon was held in place for 4 minutes. I then repositioned the balloon more proximally across the
occluded posterior tibial artery segment and inflated the balloon once again to nominal pressure. This inflation was also performed for 4 minutes. Subsequent arteriogram demonstrated improved but suboptimal result. I then brought into position a 3
mm x 80 mm angioplasty balloon and positioned this across the distal posterior tibial artery segment stenosis under roadmap guidance. The balloon was inflated to nominal pressure and held in place for 3 minutes. 3 inflations total like this were
performed to treat the entire occluded distal segment. Under roadmap guidance I also used the 3 mm x 80 mm angioplasty balloon to treat the focal tibioperoneal trunk stenosis.
COMPLETION ARTERIOGRAM: Excellent technical result. Patent brisk flow through the posterior tibial artery and into the foot with no significant residual stenosis identified. Contrast reached the forefoot via the plantar branches which were now
filling briskly and patent. Patent peroneal artery. Patent tibioperoneal trunk with only mild residual stenosis identified. Again demonstrated was delayed filling of the diseased dorsalis pedis artery in the foot. Overall significantly improved
compared to pretreatment.
Satisfied with this result we concluded the procedure. The 0.014 wire was removed from the 5 [place] sheath. The sheath was secured in place with the plan to pull it in the recovery room. Protamine was administered.
The patient tolerated the procedure well and was taken to the recovery area in stable condition.
Attestation: I was present and responsible for the entire procedure.
Signed:
Speedy Caraballo III, MD
[facility] Surgery
[phone] (cell)
[2023-11-14 16:16] LABS: Glucose - Point of Care 246 mg/dl (70-99)
[2023-11-14] MEDS: NOVOLOG vial 2 UNITS SC (16:32)
== END | disposition home or self-care (01) ==
LOC: CATH 08:50
PROVIDERS: ATTENDING PHYSICIAN Surgery Vascular Surgery; FAMILY PHYSICIAN Family Medicine; OTHER PHYSICIAN Internal Medicine Cardiovascular Disease
DX: I70.25 Atherosclerosis of native arteries of other extremities with ulceration (principal); E11.51 Type 2 diabetes mellitus with diabetic peripheral angiopathy without gangrene; I10 Essential (primary) hypertension; E78.00 Pure hypercholesterolemia, unspecified; I25.10 Atherosclerotic heart disease of native coronary artery without angina pectoris; Z95.1 Presence of aortocoronary bypass graft; Z79.02 Long term (current) use of antithrombotics/antiplatelets; Z79.4 Long term (current) use of insulin; Z79.82 Long term (current) use of aspirin
CPT/HCPCS: 37228; 37232; C1725; C1894; C1769; C1887; 82962; Q9967

== ENCOUNTER → 2023-12-15 08:33 | Outpatient (REF) | payer MEDICARE, OTHER, SELFPAY | LOC: DHVS 08:33 | PROVIDERS: ATTENDING PHYSICIAN Surgery Vascular Surgery; FAMILY PHYSICIAN Family Medicine; OTHER PHYSICIAN Podiatrist Foot & Ankle Surgery | DX: I73.9 Peripheral vascular disease, unspecified (principal) | CPT/HCPCS: 93922; 93925 ==

== ENCOUNTER 2024-01-01 09:20 | Inpatient (IN) | payer MEDICARE, OTHER, SELFPAY ==
[2024-01-01] VITALS (13 sets, daily range): BP systolic 111–137; BP diastolic 59–73
[2024-01-01 07:56] LABS: Glucose - Point of Care 201 mg/dl (70-99)
[2024-01-01] MEDS: PERIDEX 0.12% ORAL RINSE 15 ML PO (08:00)
[2024-01-01] MEDS: BACTROBAN NASAL 1 GRAM NASAL (08:00)
[2024-01-01 08:01] LABS: Hematocrit 36.2 % (39.0-52.0); Hemoglobin 11.8 g/dL (13.0-18.0); Mean Corp Hgb Conc. 32.6 g/dL (33.0-37.0); Mean Corpuscular Hgb 26.9 pg (27.0-31.0); Mean Corpuscular Volume 82.5 fL (80.0-94.0); Mean Platelet Volume 9.1 fL (7.4-10.4); Platelet Count 316 10^3/uL (130-400); Red Blood Cell Count 4.39 10^6/uL (4.70-6.10); Red Cell Dist. Width 14.8 % (11.5-14.5); White Blood Cell Count 10.6 10^3/uL (4.8-10.8)
[2024-01-01 08:21] LABS: Blood Urea Nitrogen 51 mg/dl (9-20); Calcium 8.9 mg/dl (8.4-10.2); Carbon Dioxide 17 mmol/L (22-30); Chloride 105 mmol/L (98-107); Estimated Creatinine Clearance 50 ml/min; Glucose 194 mg/dl (70-99); Potassium 4.9 mmol/L (3.5-5.1); Sodium 138 mmol/L (135-145)
[2024-01-01 08:40] LABS: INR 1.11; PT 14.6 Sec (11.4-14.6)
[2024-01-01 08:41] LABS: APTT 32.5 Sec (23.4-35.0)
[2024-01-01 09:44] LABS: Glucose - Point of Care 209 mg/dl (70-99)
--- NOTE | 2024-01-01 09:49 | W.IMMPOSTOP ---
Surgical Immed Post Op Note
-
Primary Surgeon: Dr. Speedy Caraballo III, MD
Assisting Surgeon: Phu Abdi MD, PhD (PGY-2)
Pre-op Diagnosis: s/p prior right TMA with gangrenous skin necrosis
Post-op Diagnosis: s/p prior right TMA with gangrenous skin necrosis
Procedure Performed: right foot wound debridement, wound vac placement
Anesthesia Type: Sedation
Specimen / Cultures: Bone and tissue cultures from right foot wound
Estimated Blood Loss: Minimal
Complications: None
Operative Findings: The patient was brought to the OR and placed in the supine position. The right foot was prepped and draped in usual sterile fashion. The patient was noted to have multiple wounds: 4x2cm on the medial heel of the right foot,
2x2cm on the dorsum of the right foot, 2x2cm at the distal aspect of the foot, and 6x1cm on the lateral aspect of the right foot. Sharp dissection was used to debride all wound sites and remove necrotic eschar. The 4x2cm medial heel wound site had
exposed bone and a biopsy was taken of the bone and tissues at this site. Doppler identified a strong signal to this area of the foot. A wound vac was placed at the 4x2cm medial heel wound site and demonstrated good seal. The remainder of the wounds
were dressed with adaptic, 4x4x, abd pads, kerlix, and kiel wrap. The patient was transported to the PACU in stable condition.
--- NOTE | 2024-01-01 10:29 | OR.RPT ---
Operative Report
Operative Report
Date of Operation: 01/01/2024
Pre Op Diagnosis: Poorly healing right foot wounds and known peripheral arterial occlusive disease
Post Op Diagnosis: Poorly healing right foot wounds and known peripheral arterial occlusive disease
Procedure:
1.) Sharp excisional debridement of right medial ankle wound including skin, subcutaneous tissue, fascia and bone (wound dimensions 6 cm x 2 cm) and placement of VAC dressing
2.) Sharp excisional debridement of right dorsal foot wound including skin and subcutaneous tissue (wound dimensions 2 cm x 2 cm)
3.) Sharp excisional debridement of right distal forefoot wound including skin and subcutaneous tissue (wound dimensions 2 cm x 2 cm)
4.) Sharp excisional debridement of right lateral foot wound including skin and subcutaneous tissue (wound dimensions 6 cm x 1 cm)
Surgeon: Speedy Caraballo III, MD
Batter Scaler: Phu Abdi MD PhD, PGY2
Anesthesia: Sedation/local
Complications: None
Estimated Blood Loss: 5 cc
History and Indications for Procedure: 73-year-old male with severe peripheral arterial occlusive disease status post endovascular intervention and poorly healing right foot wounds. He was taken to the operating room today for sharp excisional
debridement.
Procedure in Detail: Flaquito Jamil was correctly identified and placed supine on the operating table. After adequate induction of anesthesia the right foot and ankle were positioned, prepped and draped in the usual sterile fashion. Preoperative
antibiotics were administered. A timeout procedure was performed with the nursing and anesthesia staff confirming the patient's identity as well as the nature and laterality of the procedure.
RIGHT MEDIAL RIGHT ANKLE: Using a scalpel, scissors and forceps, sharp excisional debridement was performed on the medial ankle wound. Necrotic eschar as well as necrotic foul-smelling subcutaneous tissue and fascia was sharply debrided from the
wound. The tissue was necrotic in appearance. Deep adjacent to the calcaneus purulence was identified. Bone culture was performed with a rongeur and sent to microbiology. Debridement of the ischemic tissue continued to healthier appearing
bleeding tissue at the skin and subcutaneous level. The debrided calcaneus was bleeding briskly at the base of the wound. The wound was irrigated with saline solution. Hemostasis was achieved with electrocautery. The wound dimensions debrided
were 6 cm x 2 cm. Once hemostasis had been achieved a black VAC sponge was cut to the appropriate size and packed in the wound. Adhesive dressings were applied. The wound was then connected to negative pressure with good seal achieved.
RIGHT DORSAL FOOT: Using a scalpel, scissors and forceps, sharp excisional debridement was performed on the dorsal foot wound. Necrotic eschar and fibrinous debris along with skin and subcutaneous tissue were sharply debrided from the wound. The
tissue was necrotic in appearance. No purulence was identified. Debridement of the ischemic tissue continued to bleeding tissue at the base of the wound. The wound dimensions debrided were 2 cm x 2 cm.
RIGHT DISTAL FOREFOOT: Using a scalpel, scissors and forceps, sharp excisional debridement was performed on the distal forefoot wound. Eschar and necrotic fibrinous debris was sharply debrided from the wound. Skin and subcutaneous tissue was
sharply debrided. No purulence was identified. Debridement of the ischemic tissue continued to bleeding tissue. The wound dimensions debrided were 2 cm x 2 cm.
RIGHT LATERAL FOOT: Using a scalpel, scissors and forceps, sharp excisional debridement was performed on the lateral foot wound. Necrotic eschar along with skin and subcutaneous tissue was sharply debrided from the wound. The tissue was necrotic in
appearance superficially however the base was healthier and bleeding. No purulence was identified. Debridement of the ischemic tissue continued to healthy bleeding tissue at the base. The wound dimensions debrided were 6 cm x 1 cm.
The wounds were then irrigated with saline. Hemostasis was achieved. Sterile non adherent dressings were applied.
The patient tolerated the procedure well and was taken to the PACU in stable condition
Attestation: I was present and responsible for the entire procedure
Signed:
Speedy Caraballo III, MD
[facility] V[facility] Surgery
[phone] (cell)
--- NOTE | 2024-01-01 10:29 | W.PN.UPDATE ---
Update Note
Progress Note Update
Debridement of the right foot wounds today revealed necrotic tissue down to the calcaneus over the right medial ankle. Culture of the calcaneus was sent. Patient would benefit from infectious disease consultation, antibiotic plan and home VAC
dressing. May potentially need SNF placement for multiple needs. Planning to admit to the hospital to facilitate care.
Speedy Caraballo III, MD
[facility] Vascular Surgery
[phone] (cell)
--- NOTE | 2024-01-01 11:26 | PTCARENOTE ---
Pt arrived to 2S via stretcher, slid to bed with assistance from NSG staff. Telemetry applied. R foot DSG and wound vacc maintained, serosanguineous output noted.+ Doppler DP pulse to LLE. + Palpable R popliteal pulse. RLE NWB status and need to
ring for assistance, pt verbalized understanding. Per Sridevi Maki PA-c ok to discontinue frequent site checks as not applicable to this pt. Bed locked and in the lowest position, safety maintained. Oriented to room and call abbott.
[2024-01-01 11:55] LABS: Glucose - Point of Care 198 mg/dl (70-99)
[2024-01-01] MEDS: NOVOLOG FLEXPEN-HIGH RESISTANCE 2 UNITS SC (12:01)
--- NOTE | 2024-01-01 13:15 | CON.ID ---
Consultation
-
Date/Time Consultation Requested: 01/01/24 9:19
Date/Time Consultation Performed: 01/01/24 13:23
Requesting Provider: Glynn PERES
Performing Provider: Dr Barksdale
Reason for Consultation: diabetic foot infection, calcaneal involvement
Chief Complaint / Past History
Chief Complaint
elective debridement of nonealing wounds
History of Present Illness
Mr Jamil is a 73 year old male with history of DM2 (recently uncontrolled, 09/04 a1c 10.1, this visit pending), PAD s/p multiple lithotripsys (09/10, 09/18) most recently with right plantar branch stenosis and distal MEDICATION TECHNICIAN occlusion, TMA of the Right
foot and revision of the previous I&D site. Since then he has been noted to have worsening right heel ulceration with adherent slough, surrounding erythema and dry gangrenous skin changes. Nevertheless he had strong DP/PT doppler signals; another
attempt at revascularization was planned. He was taken ot the OR today 12/31 and underwent right foot wound debridement x4 (medial heel, dorsum, distal foot, lateral foot) and wound vac placement x1. The medial heel wound site had exposed bone and
biopsy of bone and tissue was taken at this site for culture, tissue culture is pending. Previous cultures from 09/05/23 right foot wound/bone cultures with Bacteroides, Finegoldia, MSSA and Strep.
Past History
Additional Past Medical History:
Right heel dry gangrene
- s/p I&D and resection of third toe 09/05/2023
- s/p revision and further debridement 09/13/2023
- s/p TMA with closure 09/21/23
- s/p debridement x4 locations on right foot 01/01/24
PAD
DM type II (most recently uncontrolled; A1c = 10.1)
CKD
CAD
HTN
Dyslipidemia
Nephrolithiasis
Additional Past Surgical History:
- s/p I&D and resection of third toe 09/05/2023
- s/p revision and further debridement 09/13/2023
- s/p TMA with closure 09/21/23
- s/p debridement x4 locations on right foot 01/01/24
lithotripsy/angioplasty RLE
Allergy History:
No Known Allergies Allergy (Verified 01/01/24 07:53)
Medications Reviewed: Yes
Social History
Tobacco: Non-Smoker
Alcohol: None
Drug: None
Family History
Family History: Not Pertinent
Review of Systems
Review of Systems
General: Negative Fever or Chills
All systems: All other systems were reviewed and were negative
Vital Signs
Temp Pulse Resp BP Pulse Ox
98.3 F 69 17 125/69 96
01/01/24 12:10 01/01/24 12:10 01/01/24 12:10 01/01/24 12:10 01/01/24 12:10
Physical Exam
Physical Exam
Constitutional: No Acute Distress
Cardiovascular: Regular Rate and S1/S2; Negative Murmur or Rub
Pulmonary: Clear and Symmetric; Negative Wheezes, Rales or Rhonchi
Gastrointestinal: Soft, Non Tender, Non Distended and Normal Bowel Sounds
Skin: Warm and Dry; Negative Rash or Jaundice
Wound: Other (RLE wound vac in place, dressing clean, dry, intact)
Lab / Diagnostic Study Results
01/01/24 07:48
01/01/24 07:47
PT 14.6 Sec (11.4-14.6) 01/01/24 08:17
INR 1.11 01/01/24 08:17
Microbiology Results
Micro:
01/01/24 09:21 Tissue Culture - Pending
Heel - Right Gram Stain - Pending
Assessment / Plan
Assessment / Plan
Right heel dry gangrene
- s/p I&D and resection of third toe 09/05/2023
- s/p revision and further debridement 09/13/2023
- s/p TMA with closure 09/21/23
- s/p debridement x4 locations on right foot 01/01/24
PAD
DM type II (most recently uncontrolled; A1c = 10.1)
CKD
CAD
HTN
Dyslipidemia
Nephrolithiasis
Recommendations:
Tissue culture in progress - gram stain pending
spoke with micro lab bone specimen not yet received - they will look into this and get back to me, it may have been put into formalin for path
Suspect bone involvement as necrotic tissue was down to the bone per OR report
MRSA nasal screen ordered
Will need at least 48 hours to follow cultures to finalize an antibiotic regimen
Suspect patient will likely need a prolonged course of IV antibiotics - decisions re: PICC line placement pending culture
Will start empiric zosyn for present, final antibiotic decision and duration pending at least 48 hour results on cultures - reviewed with patient who is agreeable
[2024-01-01] MEDS: ZOSYN 100 IV ×2 (14:44→20:16)
[2024-01-01 17:39] LABS: Glucose - Point of Care 307 mg/dl (70-99)
[2024-01-01] MEDS: HEPARIN 5000 UNITS SC (17:42)
[2024-01-01] MEDS: NOVOLOG FLEXPEN-HIGH RESISTANCE 10 UNITS SC (17:44)
[2024-01-01 21:34] LABS: Glucose - Point of Care 313 mg/dl (70-99)
[2024-01-01] MEDS: LANTUS 0.3 UNITS SC (22:03)
[2024-01-02] VITALS (7 sets, daily range): BP systolic 115–127; BP diastolic 57–79; PULSE 69; O2SAT 99
[2024-01-02] MEDS: HEPARIN 5000 UNITS SC ×4 (00:10→23:28)
[2024-01-02] MEDS: ZOSYN 100 IV ×4 (02:06→20:15)
[2024-01-02 05:30] LABS: Hematocrit 32.7 % (39.0-52.0); Hemoglobin 10.8 g/dL (13.0-18.0); Mean Corpuscular Hgb 27.1 pg (27.0-31.0); Mean Corpuscular Volume 82.2 fL (80.0-94.0); Mean Platelet Volume 9.6 fL (7.4-10.4); Platelet Count 303 10^3/uL (130-400); Red Blood Cell Count 3.98 10^6/uL (4.70-6.10); Red Cell Dist. Width 14.5 % (11.5-14.5); White Blood Cell Count 9.6 10^3/uL (4.8-10.8)
[2024-01-02 05:47] LABS: Blood Urea Nitrogen 53 mg/dl (9-20); Calcium 8.4 mg/dl (8.4-10.2); Carbon Dioxide 21 mmol/L (22-30); Chloride 103 mmol/L (98-107); Estimated Creatinine Clearance 42 ml/min; Glucose 231 mg/dl (70-99); Potassium 4.8 mmol/L (3.5-5.1); Sodium 137 mmol/L (135-145); eGFR 37.02
[2024-01-02 06:14] LABS: Glucose - Point of Care 240 mg/dl (70-99)
[2024-01-02 07:01] LABS: Glucose - Point of Care 205 mg/dl (70-99)
[2024-01-02] MEDS: PLAVIX 75 MG PO (07:46)
[2024-01-02] MEDS: LIPITOR 40 MG PO (07:46)
[2024-01-02] MEDS: LOW STRENGTH ASPIRIN 81 MG PO (07:46)
[2024-01-02] MEDS: TOPROL XL 50 MG PO (07:46)
[2024-01-02] MEDS: THERAGRAN 1 TABLET PO (07:46)
[2024-01-02] MEDS: NORVASC 2.5 MG PO (07:46)
[2024-01-02] MEDS: VITAMIN D3 (cholecalciferol) 25 MCG PO (07:47)
[2024-01-02] MEDS: NOVOLOG FLEXPEN-HIGH RESISTANCE 4 UNITS SC ×2 (07:48→12:34)
[2024-01-02 08:05] LABS: Erythrocyte Sed Rate 66 mm/hour (0-20)
--- NOTE | 2024-01-02 09:20 | W.PN.ID1 ---
Date of Service
Date of Service: January 02, 2024
Today's Communication
tight blood glucose control recommended to maximize healing potential and has not historically been achieved - suggest hospitalist or DM educator consult particularly if todays a1c > 7.5
Will need at least another 24 hours to follow cultures prior to finalizing an antibiotic regimen
Plan 6 week course of IV antibiotics
PICC placement
C/w empiric zosyn for present, final antibiotic decision and duration pending ID of all isolates from the bone culture - reviewed with patient who is agreeable
Note calcaneal osteomyelitis carries a high risk for relapse even with an aggressive course of IV antibiotics.
Assessment / Plan
Assessment / Plan
Osteomyelitis of the R calcaneous
Right heel dry gangrene
- s/p I&D and resection of third toe 09/05/2023
- s/p revision and further debridement 09/13/2023
- s/p TMA with closure 09/21/23
- s/p debridement x4 locations on right foot 01/01/24
PAD
DM type II (most recently uncontrolled; A1c = 10.1)
CKD
CAD
HTN
Dyslipidemia
Nephrolithiasis
Recommendations:
re-discussed with micro lab (imelda) the tissue culture is in fact the bone culture - a comment will be added; osteomyelitis ruled in
MRSA nasal screen ordered - in progress
tight blood glucose control recommended to maximize healing potential and has not historically been achieved - suggest hospitalist or DM educator consult particularly if todays a1c > 7.5
Will need at least another 24 hours to follow cultures prior to finalizing an antibiotic regimen
Plan 6 week course of IV antibiotics
PICC placement
C/w empiric zosyn for present, final antibiotic decision and duration pending ID of all isolates from the bone culture - reviewed with patient who is agreeable
Note calcaneal osteomyelitis carries a high risk for relapse even with an aggressive course of IV antibiotics.
Chief Complaint
-: Other (calcaneal osteomyelitis)
Subjective / Review of Systems
afebrile
bp stable
no events overnight
discussed with patient and his friend in health care
Vital Signs / Physical Exam
Vital Signs
Vital Signs
Temp Pulse Resp BP Pulse Ox
97.3 F 72 16 127/68 98
01/02/24 07:00 01/02/24 07:46 01/02/24 07:00 01/02/24 07:46 01/02/24 07:00
Physical Exam
Constitutional: No Acute Distress
Cardiovascular: Regular Rate and S1/S2; Negative Murmur or Rub
Pulmonary: Clear and Symmetric; Negative Wheezes or Rales
Gastrointestinal: Soft, Non Tender, Non Distended and Normal Bowel Sounds
Skin: Warm and Dry; Negative Rash or Jaundice
Wound: Other (dressing clean, dry, intact, wound vac in place)
Objective Data
Lab Data
Lab Results
01/02/24 04:13
01/02/24 04:13
ESR 66 mm/hour (0-20) H 01/02/24 04:13
PT 14.6 Sec (11.4-14.6) 01/01/24 08:17
INR 1.11 01/01/24 08:17
APTT 32.5 Sec (23.4-35.0) 01/01/24 08:17
Estimated Creat Clear 42 ml/min 01/02/24 04:13
C-Reactive Protein 49.60 mg/L (0.0-10.00) H 01/02/24 04:13
Most recent labs reviewed.
Micro Results:
01/01/24 09:21 Tissue Culture - Preliminary
Heel - Right Gram negative bacilli
Streptococcus agalactiae
Gram Stain - Preliminary
01/01/24 14:06 MRSA Screen - Pending
Nose
Care Review
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
[2024-01-02] MEDS: SANTYL OINTMENT 1 APPLIC TOPICAL (10:33)
--- NOTE | 2024-01-02 11:37 | W.PN.VS ---
Today's Communication / Plan
-
as above
Assessment/Plan
-
CLTI with poorly healing right foot/ankle wounds
-F/U on bone bxp/culture results
-Appreciate ID input
-Non weight bearing right heel
-Continue VAC to right heel/medial ankle wound. Change 01/03/24
-Santyl to remaining wounds. Daily dressing changes
-PT/OT
Subjective Data
-
Date of Service: January 02, 2024
Sitting in bed
No complaints
VAC holding a seal
No events
Objective Data
-
Vital Signs
Temp Pulse Resp BP Pulse Ox
97.3 F 72 16 127/68 98
01/02/24 07:00 01/02/24 07:46 01/02/24 07:00 01/02/24 07:46 01/02/24 07:00
Intake and Output
01/01/24 01/02/24 01/03/24
06:59 06:59 06:59
Intake Total 370 / 370
Output Total 1000 / 1000 600 / 600
Balance -630 / -630 -600 / -600
Intake:
Oral fluids 180 / 180
IV fluids (Total) 90 / 90
ns 50 / 50
IV piggybacks 100 / 100
Output:
Urine, Voided 1000 / 1000 600 / 600
Lab Results
01/02/24 04:13
01/02/24 04:13
Calcium 8.4 mg/dl (8.4-10.2) 01/02/24 04:13
Physical Exam
-
NAD
Non toxic
VAC holding suction
Robust PT signal over the right medial ankle
Wounds on right foot clean/dry
[2024-01-02 12:11] LABS: Glucose - Point of Care 227 mg/dl (70-99)
--- NOTE | 2024-01-02 12:31 | CM ---
Addendum entered by Merle Weaver 01/02/24 15:13:
Pt is current Per [facility] at [facility]
Original Note:
Adm dx - surgical debridement
Met with pt at bedside
Pt reports he lives alone in a 1 story home; 3 steps to enter
Independent with ADL's, non weight-bearing to RLE, uses wheel chair and RW
DME - rolling walker, wheel chair
SNF - past - [facility]
HH - currently has services - unsure of agency
PCP - Gene Angulo
Pharm - [facility]
ID consulted - will need long-term IV antibiotics
PT consult pending
Plan - anticipate home with HH/Infusion vs SNF when medically ready
[2024-01-02 14:43] LABS: Glycohemoglobin (HgbA1c) 8.8 % (4.0-5.6)
--- NOTE | 2024-01-02 14:43 | PN.DE.MGMTRT ---
Insulin Management
- -
01/02/2024 Diabetes Management Consult
Patient with non healing wound R foot s/p OR 12/31 for heel debridement and wound vac. Patient known to diabetes team from multiple admissions most recent 09/03 - 09/22 and 10/08 to 10/11).
PMH: ASCVD, HTN, HLD, CKD IIIb, Anemia of chronic disease/REGGIE c/b anemia 2/2 CKD, T2DM, PAD s/p angiogram with lithotripsy.
Last A1C was 10.1% on 09/04. Prior to admission was taking lantus 30 units @ hs and Humalog ss with meals. A1C is 8.8% today, cr 1.9, eGFR 37.02.
Pt awake, A/Ox3,out of bed in chair, offers no complaints, able to discuss diabetes mgt. Friends at bedside.
Glucose range 12/31 198 to 313, with corrective insulin only and lantus 30 units @ HS. Fasting glucose this AM 240. Will continue lantus 30 units @ hs, start 5 units novolog AC with moderate corrective insulin.
Discussed with patient used of standing insulin with each meal plus a modified lower dose scale if glucose > 150, he is agreeable.
Will follow for further needed adjustments.
Diabetes History
- -
Type of Diabetes: 2 requiring insulin
Pre-Admission Diabetes Regimen
01/02/24
04:13
Creatinine 1.9 H
Insulin Pump Settings
IP Diabetes Regimen
01/01/24 01/01/24 01/02/24
17:39 21:33 04:13
Glucose 231 H
POC Glucose 307 H 313 H
01/02/24 01/02/24 01/02/24
06:13 07:00 12:10
Glucose
POC Glucose 240 H 205 H 227 H
Meal type: Lunch
Meal type: Breakfast
Amount consumed: 100%
Amount consumed: 0
Patient Education
--- NOTE | 2024-01-02 16:26 | WOUNDNOTE ---
SANDI RN NOTE: Wound vac to R heel placed by vascular, next change tomorrow. Santyl and local wound care ordered by vascular to remaining R foot wounds. Nurse Diane states she already did wound care today. Will update care plan and follow up tomorrow.
[2024-01-02 17:06] LABS: Glucose - Point of Care 160 mg/dl (70-99)
[2024-01-02] MEDS: NOVOLOG FLEXPEN 5 UNITS SC (18:03)
[2024-01-02] MEDS: NOVOLOG FLEXPEN-MODERATE RESISTANCE 1 UNITS SC (18:03)
[2024-01-02 21:29] LABS: Glucose - Point of Care 147 mg/dl (70-99)
[2024-01-02] MEDS: LANTUS 0.3 UNITS SC (21:39)
[2024-01-03] MEDS: ZOSYN 100 IV ×4 (01:36→20:31)
[2024-01-03 03:55] VITALS: BP 119/68
[2024-01-03 05:27] LABS: Hematocrit 32.5 % (39.0-52.0); Hemoglobin 10.5 g/dL (13.0-18.0); Mean Corp Hgb Conc. 32.3 g/dL (33.0-37.0); Mean Corpuscular Hgb 26.9 pg (27.0-31.0); Mean Corpuscular Volume 83.1 fL (80.0-94.0); Platelet Count 269 10^3/uL (130-400); Red Blood Cell Count 3.91 10^6/uL (4.70-6.10); Red Cell Dist. Width 14.7 % (11.5-14.5); White Blood Cell Count 9.6 10^3/uL (4.8-10.8)
[2024-01-03 05:50] LABS: Blood Urea Nitrogen 50 mg/dl (9-20); Calcium 8.4 mg/dl (8.4-10.2); Carbon Dioxide 23 mmol/L (22-30); Chloride 105 mmol/L (98-107); Estimated Creatinine Clearance 42 ml/min; Glucose 151 mg/dl (70-99); Potassium 4.3 mmol/L (3.5-5.1); Sodium 140 mmol/L (135-145); eGFR 37.02
[2024-01-03 07:00] VITALS: BP 125/65
[2024-01-03 07:00] LABS: Glucose - Point of Care 145 mg/dl (70-99)
[2024-01-03] MEDS: NOVOLOG FLEXPEN-MODERATE RESISTANCE SC (07:36)
[2024-01-03] MEDS: NOVOLOG FLEXPEN SC (07:36)
--- NOTE | 2024-01-03 07:51 | PN.DE.MGMTRT ---
Insulin Management
- -
01/03/2024 Diabetes Management Consult Follow up
Patient with non healing wound R foot s/p OR 12/31 for heel debridement and wound vac. Patient known to diabetes team from multiple admissions most recent 09/03 - 09/22 and 10/08 to 10/11).
PMH: ASCVD, HTN, HLD, CKD IIIb, Anemia of chronic disease/REGGIE c/b anemia 2/2 CKD, T2DM, PAD s/p angiogram with lithotripsy.
Last A1C was 10.1% on 09/04. Prior to admission was taking lantus 30 units @ hs and Humalog ss with meals. A1C is 8.8% today, cr 1.9, eGFR 37.02.
Pt awake, A/Ox3,out of bed in chair, offers no complaints, able to discuss diabetes mgt.
01/01Glucose range 12/31 198 to 313, with corrective insulin only and lantus 30 units @ HS. Fasting glucose this AM 240. Will continue lantus 30 units @ hs, start 5 units novolog AC with moderate corrective insulin.
01/02 Fasting glucose this AM 145, HS glucose last mariela 147. Will make no change to hs lantus 30 units and AC novolog 5 units; will change moderate corrective to low.
Discussed with patient used of standing insulin with each meal plus a modified lower dose scale if glucose > 150, he is agreeable.
Will follow for further needed adjustments.
Diabetes History
- -
Type of Diabetes: 2 requiring insulin
Pre-Admission Diabetes Regimen
01/03/24
05:07
Creatinine 1.9 H
Lab Results
Hemoglobin A1c 8.8 % (4.0-5.6) H 01/02/24 04:13
Insulin Pump Settings
IP Diabetes Regimen
01/02/24 01/02/24 01/02/24
12:10 17:04 21:28
Glucose
POC Glucose 227 H 160 H 147 H
01/03/24 01/03/24
05:07 06:57
Glucose 151 H
POC Glucose 145 H
Meal type: Dinner
Meal type: Lunch
Meal type: Breakfast
Amount consumed: 100%
Amount consumed: 100%
Amount consumed: 100%
Patient Education
--- NOTE | 2024-01-03 08:12 | W.PN.VS ---
Addendum entered and electronically signed by Speedy Caraballo III, MD 01/03/24 16:15:
This patient was seen and examined with DARRIAN Ocampo. I agree with the history and physical exam as well as the assessment and plan. I have the following additions:
Discussed current clinical care plan with Flaquito
Will continue VAC therapy
Determine antibiotic plan
Risk of limb loss remains high but we will attempt this approach first before deciding if major amputation is necessary.
Signed:
Speedy Caraballo III, MD
[facility] Vascular Surgery
[phone] ([phone])
Original Note:
Today's Communication / Plan
-
See below.
Assessment/Plan
-
CLTI with poorly healing right foot/ankle wounds
Plan:
-F/U on bone bxp/culture results, infectious disease following appreciate recommendations for IV antibiotic course, PICC line placed
-Non weight bearing right heel
-Continue VAC to right heel/medial ankle wound. Will change wound VAC dressing today
-Santyl to remaining wounds. Daily dressing changes
-PT/OT
-Case management following for home disposition planning
-Appreciate diabetic nurse practitioner recommendations for optimal blood glucose control
Subjective Data
-
Date of Service: January 03, 2024
Patient seen and examined at bedside, offers no complaints. Reports adequate postoperative pain management at right foot wounds. Denies nausea, vomiting, fever, and chills.
Objective Data
-
Vital Signs
Temp Pulse Resp BP Pulse Ox
98.5 F 83 17 125/65 98
01/03/24 07:00 01/03/24 07:00 01/03/24 07:00 01/03/24 07:00 01/03/24 07:00
Intake and Output
01/02/24 01/03/24 01/04/24
06:59 06:59 06:59
Intake Total 370 / 370 1020 / 1020
Output Total 1000 / 999
Balance -630 / -630 -1080 / -1080
Intake:
Oral fluids 180 / 180 720 / 720
IV fluids (Total) 90 / 90
ns 50 / 50
IV piggybacks 100 / 100 300 / 300
Output:
Urine, Voided 999 / 999
Lab Results
01/03/24 05:07
01/03/24 05:07
Calcium 8.4 mg/dl (8.4-10.2) 01/03/24 05:07
Physical Exam
-
No apparent distress, resting comfortably in bed
No tachycardia
No dyspnea on room air
Right foot wound VAC holding suction, site CDI
Right foot dressing clean dry and intact
[2024-01-03] MEDS: PLAVIX 75 MG PO (08:19)
[2024-01-03] MEDS: LIPITOR 40 MG PO (08:19)
[2024-01-03] MEDS: THERAGRAN 1 TABLET PO (08:19)
[2024-01-03] MEDS: TOPROL XL 50 MG PO (08:20)
[2024-01-03] MEDS: LOW STRENGTH ASPIRIN 81 MG PO (08:20)
[2024-01-03] MEDS: NORVASC 2.5 MG PO (08:20)
[2024-01-03] MEDS: NOVOLOG FLEXPEN 5 UNITS SC ×3 (08:21→17:22)
[2024-01-03] MEDS: HEPARIN 5000 UNITS SC ×3 (08:21→23:02)
[2024-01-03] MEDS: VITAMIN D3 (cholecalciferol) 25 MCG PO (08:23)
[2024-01-03] MEDS: SANTYL OINTMENT 1 APPLIC TOPICAL (10:33)
--- NOTE | 2024-01-03 10:47 | W.PN.ID1 ---
Date of Service
Date of Service: January 03, 2024
Today's Communication
Plan 6 week course of IV antibiotics
PICC in place
C/w empiric zosyn for present, final antibiotic decision and duration pending ID of all isolates from the bone culture - reviewed with patient
Note calcaneal osteomyelitis carries a high risk for relapse even with an aggressive course of IV antibiotics.
Assessment / Plan
Assessment / Plan
Osteomyelitis of the R calcaneous
Right heel dry gangrene
- s/p I&D and resection of third toe 09/05/2023
- s/p revision and further debridement 09/13/2023
- s/p TMA with closure 09/21/23
- s/p debridement x4 locations on right foot 01/01/24
PAD
DM type II (most recently uncontrolled; A1c = 8.8)
CKD
CAD
HTN
Dyslipidemia
Nephrolithiasis
Recommendations:
bone culture: GNR and GBS - awaiting final ID of the GNR
MRSA nasal screen negative
DM educator was consulted, a1c not currently at goal
Plan 6 week course of IV antibiotics
PICC in place
C/w empiric zosyn for present, final antibiotic decision and duration pending ID of all isolates from the bone culture - reviewed with patient
Note calcaneal osteomyelitis carries a high risk for relapse even with an aggressive course of IV antibiotics.
Chief Complaint
-: Other (calcaneal osteomyelitis)
Vital Signs / Physical Exam
Vital Signs
Vital Signs
Temp Pulse Resp BP Pulse Ox
98.5 F 83 17 125/65 98
01/03/24 07:00 01/03/24 08:20 01/03/24 07:00 01/03/24 08:20 01/03/24 07:00
Physical Exam
Constitutional: No Acute Distress
Cardiovascular: Regular Rate and S1/S2; Negative Murmur or Rub
Pulmonary: Clear and Symmetric; Negative Wheezes or Rales
Gastrointestinal: Soft, Non Tender, Non Distended and Normal Bowel Sounds
Skin: Warm and Dry; Negative Rash or Jaundice
Wound: Other (wounds x4 evaluated; heel wound with visible bone; all wounds no odor, no purulence, no drainage)
Lines: Other (wounds vac now in place)
Objective Data
Lab Data
Lab Results
01/03/24 05:07
01/03/24 05:07
ESR 66 mm/hour (0-20) H 01/02/24 04:13
PT 14.6 Sec (11.4-14.6) 01/01/24 08:17
INR 1.11 01/01/24 08:17
APTT 32.5 Sec (23.4-35.0) 01/01/24 08:17
Estimated Creat Clear 42 ml/min 01/03/24 05:07
C-Reactive Protein 49.60 mg/L (0.0-10.00) H 01/02/24 04:13
Most recent labs reviewed.
Micro Results:
01/01/24 09:21 Tissue Culture - Preliminary
Heel - Right Gram negative bacilli
Streptococcus agalactiae
Gram Stain - Preliminary
01/01/24 14:06 MRSA Screen - Final
Nose No Methicillin Resistant Staphylococcus aureus isolated.
[2024-01-03 11:00] VITALS: BP 122/70
--- NOTE | 2024-01-03 11:14 | WOUNDNOTE ---
COCCYX (with photo flash)
--- NOTE | 2024-01-03 11:15 | WOUNDNOTE ---
WOC RN note: Assisted Dimple Maki, Vascular HAND WEAVER with R heel vac dressing changed and R foot wounds dressing changes. Patient tolerated well. R heel pink, yellow, black in color. Foot wounds with yellow slough. Heels elevated off bed. Instructed
patient pressure injury prevention measures. Plan is home with VN for vac dressing changes and IV infusion. Next vac dressing change due on Monday. Will work on home vac paperwork.
--- NOTE | 2024-01-03 11:15 | WOUNDNOTE ---
R FOOT (PLANTAR DISTAL)(with photo flash)
--- NOTE | 2024-01-03 11:15 | WOUNDNOTE ---
R HEEL (MEDIAL POSTERIOR)
--- NOTE | 2024-01-03 11:16 | WOUNDNOTE ---
R HEEL (POSTERIOR MEDIAL)
[2024-01-03 11:30] LABS: Glucose - Point of Care 191 mg/dl (70-99)
[2024-01-03] MEDS: NOVOLOG FLEXPEN-LOW RESISTANCE 1 UNITS SC (12:15)
--- NOTE | 2024-01-03 12:28 | PN.CDI ---
CDI
- -
CDI:
Physician Documentation Request
Admit Date: 01/01/24 09:20
Dear Doctor Dimple Maki,
Please review the following and provide your response in the progress notes.
Clinical Indicators:
Pt admitted for incisional debridement of poorly healing foot/ankle wounds.
Clarify which of the following accurately represents the patient's renal status:
Laboratory Tests
01/01/24 01/02/24 01/03/24
07:47 04:13 05:07
Creatinine 1.6 H 1.9 H 1.9 H
eGFR 45.50 37.02 37.02
Acute kidney injury with, if appropriate on chronic kidney disease (CKD) - please provide stage - see criteria)
Acute kidney injury (non-traumatic) - see criteria
CKD, please provide stage - see criteria
Other
Criteria for RAYMOND*
1 Increase in serum creatinine by > or = to 0.3 mg/dL (> or = to 26.5 micromol/L) within 48 hours, OR
2 Increase in serum creatinine to > or = to 1.5 times baseline, which is known or presumed to have occurred within 7 days, OR
3 Urine volume < 0.5 nL/kg/hour for six hours
Stages of Chronic Kidney Disease*
Level Description GFR
G1 Normal or High >90
G2 Mildly decreased 60-89
G3a Mildly to moderately decreased 45-59
G3b Moderately to severely decreased 30-44
G4 Severely decreased 15-29
G5 Kidney failure <15
Use of terms such as suspected, likely, concern for, or probable (associated with a specific diagnosis that is being evaluated, monitored, or treated as if it exists) are acceptable and can be coded in the inpatient setting, when documented at the
time of discharge.
Thank you,
Renetta Tierney RN, BSN
CDI Specialist
Available via [employer]
Please use your independent medical judgment in providing your response.
*Source: Kidney Disease: Improving Global Outcomes (KDIGO) 2012
[2024-01-03 15:00] VITALS: BP 113/59
--- NOTE | 2024-01-03 16:00 | WOUNDNOTE ---
WOC RN note: Faxed Ready retirement vac auth paperwork request to Joycelyn Simmons from /[employer]. Joycelyn confirmed she received the fax.
--- NOTE | 2024-01-03 16:16 | CM ---
Chart reviewed
Pt will require 6 weeks of IV antibiotics - PICC placed yesterday. Blood cx pend
Pt has wound vac
Pt current with [facility] prior to admit - updates sent in Care Port
PT - recs
Plan - anticipate home with [facility] and home infusion when medically stable
[2024-01-03 17:14] LABS: Glucose - Point of Care 221 mg/dl (70-99)
[2024-01-03] MEDS: NOVOLOG FLEXPEN-LOW RESISTANCE 2 UNITS SC (17:21)
[2024-01-03 21:27] LABS: Glucose - Point of Care 143 mg/dl (70-99)
[2024-01-03] MEDS: LANTUS 0.3 UNITS SC (21:35)
[2024-01-03 22:59] VITALS: BP 121/68
[2024-01-04] MEDS: ZOSYN 100 IV ×2 (01:30→08:52)
[2024-01-04 06:35] LABS: Hematocrit 32.8 % (39.0-52.0); Hemoglobin 10.7 g/dL (13.0-18.0); Mean Corp Hgb Conc. 32.6 g/dL (33.0-37.0); Mean Corpuscular Hgb 26.6 pg (27.0-31.0); Mean Corpuscular Volume 81.4 fL (80.0-94.0); Mean Platelet Volume 9.2 fL (7.4-10.4); Platelet Count 289 10^3/uL (130-400); Red Blood Cell Count 4.03 10^6/uL (4.70-6.10); Red Cell Dist. Width 14.6 % (11.5-14.5)
[2024-01-04 06:52] LABS: Blood Urea Nitrogen 43 mg/dl (9-20); Calcium 8.5 mg/dl (8.4-10.2); Carbon Dioxide 24 mmol/L (22-30); Chloride 105 mmol/L (98-107); Estimated Creatinine Clearance 44 ml/min; Glucose 143 mg/dl (70-99); Potassium 3.9 mmol/L (3.5-5.1); Sodium 140 mmol/L (135-145)
--- NOTE | 2024-01-04 07:24 | PN.DE.MGMTRT ---
Insulin Management
- -
01/04/2024 Diabetes Management Consult Follow up
Patient with non healing wound R foot s/p OR 12/31 for heel debridement and wound vac. Patient known to diabetes team from multiple admissions most recent 09/03 - 09/22 and 10/08 to 10/11).
PMH: ASCVD, HTN, HLD, CKD IIIb, Anemia of chronic disease/REGGIE c/b anemia 2/2 CKD, T2DM, PAD s/p angiogram with lithotripsy.
Last A1C was 10.1% on 09/04. Prior to admission was taking lantus 30 units @ hs and Humalog ss with meals. A1C is 8.8% this admission, cr 1.9, eGFR 37.02.
Pt awake, A/Ox3, resting in bed, offers no complaints, able to discuss diabetes mgt.
01/03 Fasting glucose this AM 143, HS glucose last mariela 143. Pre meal glucose 191 and 221 requiring corrective insulin. Will make no change to hs lantus 30 units; will increase AC novolog to 6 units; will change moderate corrective to low.
Discussed with patient use of standing insulin with each meal plus a modified lower dose scale if glucose > 150, he is agreeable.
Will follow for further needed adjustments.
Diabetes History
- -
Type of Diabetes: 2 requiring insulin
Pre-Admission Diabetes Regimen
01/04/24
05:41
Creatinine 1.8 H
Lab Results
Hemoglobin A1c 8.8 % (4.0-5.6) H 01/02/24 04:13
Insulin Pump Settings
IP Diabetes Regimen
01/03/24 01/03/24 01/03/24
11: 17:13 21:25
Glucose
POC Glucose 191 H 221 H 143 H
01/04/24
05:41
Glucose 143 H
POC Glucose
Meal type: Dinner
Meal type: Lunch
Meal type: Breakfast
Amount consumed: 100%
Amount consumed: 100%
Amount consumed: 100%
Patient Education
--- NOTE | 2024-01-04 07:36 | WOUNDNOTE ---
WOC RN note: Patient's ready assisted vac has been approved and is in this press writer's office. Plan is to bring to patient close to discharge.
[2024-01-04 08:00] VITALS: BP 132/73
[2024-01-04 08:49] LABS: Glucose - Point of Care 158 mg/dl (70-99)
[2024-01-04] MEDS: NORVASC 2.5 MG PO (08:51)
[2024-01-04] MEDS: LIPITOR 40 MG PO (08:52)
[2024-01-04] MEDS: THERAGRAN 1 TABLET PO (08:52)
[2024-01-04] MEDS: LOW STRENGTH ASPIRIN 81 MG PO (08:52)
[2024-01-04] MEDS: PLAVIX 75 MG PO (08:52)
[2024-01-04] MEDS: VITAMIN D3 (cholecalciferol) 25 MCG PO (08:52)
[2024-01-04] MEDS: HEPARIN 5000 UNITS SC ×3 (08:53→23:29)
[2024-01-04] MEDS: SANTYL OINTMENT 1 APPLIC TOPICAL (08:53)
[2024-01-04] MEDS: TOPROL XL 50 MG PO (08:53)
[2024-01-04] MEDS: NOVOLOG FLEXPEN 6 UNITS SC ×3 (08:54→17:53)
[2024-01-04] MEDS: NOVOLOG FLEXPEN-LOW RESISTANCE 1 UNITS SC ×3 (08:54→17:53)
--- NOTE | 2024-01-04 09:42 | W.PN.ID1 ---
Date of Service
Date of Service: January 04, 2024
Today's Communication
PICC in place
- start IV ceftriaxone 2 gm IV q24 (for GBS), also ciprofloxacin 500 mg po bid and metronidazole po TID all 01/03-02/13
- recheck QTc in the AM
- script given to case folder
Assessment / Plan
Assessment / Plan
Osteomyelitis of the R calcaneous
Right heel dry gangrene
- s/p I&D and resection of third toe 09/05/2023
- s/p revision and further debridement 09/13/2023
- s/p TMA with closure 09/21/23
- s/p debridement x4 locations on right foot 01/01/24
PAD
DM type II (most recently uncontrolled; A1c = 8.8)
CKD
CAD
HTN
Dyslipidemia
Nephrolithiasis
Recommendations:
bone culture: GNR and GBS - awaiting final ID of the GNR
MRSA nasal screen negative
Plan 6 week course of antibiotics
PICC in place
- start IV ceftriaxone 2 gm IV q24 (for GBS), also ciprofloxacin 500 mg po bid and metronidazole po TID all 01/03-02/13
- recheck QTc in the AM
- script given to case folder
Note calcaneal osteomyelitis carries a high risk for relapse even with an aggressive course of antibiotics; finding of MDRO Pseudomonas is quite concerning as well; I have reviewed my concerns that he is at real risk for treatment failure with
patient and his friend Nishaselena Figueroa who he trusts to help him make medical decisions. I have explained that in my opinion it is worth trying to treat him, but that I have to be up front that he still may require further amputation in the future if
treatment fails.
Chief Complaint
-: Other (calcaneal osteomyelitis)
Subjective / Review of Systems
aferbile
bp stable
with MDRO pseudomonas
no complaints
dissapointed to hear about the drug resistant bacteria
Vital Signs / Physical Exam
Vital Signs
Vital Signs
Temp Pulse Resp BP Pulse Ox
98.2 F 84 18 132/73 98
01/04/24 08:00 01/04/24 08:00 01/04/24 08:00 01/04/24 08:00 01/04/24 08:00
Physical Exam
Constitutional: No Acute Distress
Cardiovascular: Regular Rate
Pulmonary: Symmetric and Non Labored
Gastrointestinal: Non Distended
Wound: Other (dressing clean, dry, intact)
Lines: PICC
Objective Data
Lab Data
Lab Results
01/04/24 05:42
01/04/24 05:41
ESR 66 mm/hour (0-20) H 01/02/24 04:13
PT 14.6 Sec (11.4-14.6) 01/01/24 08:17
INR 1.11 01/01/24 08:17
APTT 32.5 Sec (23.4-35.0) 01/01/24 08:17
Estimated Creat Clear 44 ml/min 01/04/24 05:41
C-Reactive Protein 49.60 mg/L (0.0-10.00) H 01/02/24 04:13
Most recent labs reviewed.
Micro Results:
01/01/24 09:21 Tissue Culture - Preliminary
Heel - Right Gram negative bacilli
Streptococcus agalactiae
Gram Stain - Preliminary
01/01/24 14:06 MRSA Screen - Final
Nose No Methicillin Resistant Staphylococcus aureus isolated.
Care Review
Plan reviewed with: Physician (Dr Caraballo - RAADO pseudomonas)
[2024-01-04 10:46] VITALS: BP 124/65; PULSE 70
[2024-01-04 12:30] LABS: Glucose - Point of Care 164 mg/dl (70-99)
--- NOTE | 2024-01-04 15:03 | CM ---
Addendum entered by Merle Weaver 01/04/24 15:55:
Updates sent in Care Port to [facility] care
Original Note:
Chart reviewed and met with pt at bedside
Pt accepted by [facility] for [facility]ILA
Received Rx for home infusion/antibiotics from ID
Clinicals, face sheet, labs, PICC info and Infusion sheet faxed to [facility] [phone] for review
Home Wound vac approved per WOC notes
Pt declining SNF
Plan - - waiting on determination from [facility]. Anticipate home with [facility] and [facility] for home infusion pending acceptance
--- NOTE | 2024-01-04 15:24 | W.PN.UPDATE ---
Update Note
Progress Note Update
Pt updated at bedside on plans for home IV therapy and VAC. Plan for DC tomorrow when all in place. Pt aware and agreeable to plan. Nect VAC change tomorrow
[2024-01-04] MEDS: ZOSYN IV (15:28)
[2024-01-04] MEDS: ROCEPHIN 2000 MG IV (15:51)
[2024-01-04] MEDS: FLAGYL 500 MG PO ×2 (15:51→23:29)
[2024-01-04] MEDS: STERILE WATER FOR INJECTION 20 ML IV (15:51)
[2024-01-04] MEDS: CIPRO 500 MG PO ×2 (15:51→20:15)
[2024-01-04 16:00] VITALS: BP 124/67
[2024-01-04 17:14] LABS: Glucose - Point of Care 182 mg/dl (70-99)
[2024-01-04 21:33] LABS: Glucose - Point of Care 157 mg/dl (70-99)
[2024-01-04] MEDS: LANTUS 0.3 UNITS SC (22:02)
[2024-01-04 22:53] VITALS: BP 121/66
[2024-01-05 07:00] VITALS: BP 131/68
--- NOTE | 2024-01-05 07:07 | PN.DE.MGMTRT ---
Insulin Management
- -
01/05/2024 Diabetes Management Consult Follow up
Patient with non healing wound R foot s/p OR 12/31 for heel debridement and wound vac. Patient known to diabetes team from multiple admissions most recent 09/03 - 09/22 and 10/08 to 10/11).
PMH: ASCVD, HTN, HLD, CKD IIIb, Anemia of chronic disease/REGGIE c/b anemia 2/2 CKD, T2DM, PAD s/p angiogram with lithotripsy.
Last A1C was 10.1% on 09/04. Prior to admission was taking lantus 30 units @ hs and Humalog ss with meals. A1C is 8.8% this admission, cr 1.9, eGFR 37.02.
Pt awake, A/Ox3, resting in bed, offers no complaints, able to discuss diabetes mgt.
01/03 Fasting glucose this AM 143, HS glucose last mariela 143. Pre meal glucose 191 and 221 requiring corrective insulin. Will make no change to hs lantus 30 units; will increase AC novolog to 6 units; will change moderate corrective to low.
01/04 Glucose yesterday improved 143 to 182. Will continue current regimen 6 units novolog AC with 30 units lantus @ hs.
Discussed with patient use of standing insulin with each meal plus a modified lower dose scale if glucose > 150, he is agreeable. His notebook has been updated with new scale.
Will follow for further needed adjustments.
Diabetes History
- -
Type of Diabetes: 2 requiring insulin
Pre-Admission Diabetes Regimen
Lab Results
Hemoglobin A1c 8.8 % (4.0-5.6) H 01/02/24 04:13
Insulin Pump Settings
IP Diabetes Regimen
01/04/24 01/04/24 01/04/24
08:47 12:29 17:12
POC Glucose 158 H 164 H 182 H
01/04/24
21:32
POC Glucose 157 H
Meal type: Breakfast
Meal type: Breakfast
Amount consumed: 100%
Amount consumed: 100%
Patient Education
[2024-01-05 07:53] LABS: Glucose - Point of Care 138 mg/dl (70-99)
--- NOTE | 2024-01-05 09:07 | WOUNDNOTE ---
[facility] RN note: Patient's R heel vac dressing changed. Wound slightly coke still cleaner than 2 days ago. +Local erythema. +Odor. R dorsal, lateral and distal foot wounds pink with yellow slough. Sacrum blanchable red and intact. Patient reinstructed pressure
injury prevention measures, heel elevation and use of air chair cushion. [place] texted Dimple Maki, vascular [employer] wound pictures. Also asked for approval to add Vashe soaked gauze to R heel x 3 minutes with each Vac dressing change. Await response. Home
vac equipment delivered and left just inside patient's room under sink should patient be discharged today. Patient signed Home vac equipment proof of delivery form. Will return for home vac teaching today if plan for home discharge confirmed.
[2024-01-05] MEDS: NORVASC 2.5 MG PO (09:18)
[2024-01-05] MEDS: FLAGYL 500 MG PO ×2 (09:18→16:35)
[2024-01-05] MEDS: LIPITOR 40 MG PO (09:18)
[2024-01-05] MEDS: PLAVIX 75 MG PO (09:18)
[2024-01-05] MEDS: VITAMIN D3 (cholecalciferol) 25 MCG PO (09:18)
[2024-01-05] MEDS: THERAGRAN 1 TABLET PO (09:18)
[2024-01-05] MEDS: TOPROL XL 50 MG PO (09:19)
[2024-01-05] MEDS: NOVOLOG FLEXPEN 6 UNITS SC ×3 (09:19→17:41)
[2024-01-05] MEDS: NOVOLOG FLEXPEN-LOW RESISTANCE SC (09:19)
[2024-01-05] MEDS: CIPRO 500 MG PO ×2 (09:19→20:37)
[2024-01-05] MEDS: HEPARIN 5000 UNITS SC ×2 (09:19→16:34)
[2024-01-05] MEDS: LOW STRENGTH ASPIRIN 81 MG PO (09:19)
--- NOTE | 2024-01-05 09:21 | WOUNDNOTE ---
R FOOT/HEEL (MEDIAL)
[2024-01-05] MEDS: SANTYL OINTMENT 1 APPLIC TOPICAL (09:22)
[2024-01-05 12:34] LABS: Glucose - Point of Care 182 mg/dl (70-99)
[2024-01-05] MEDS: NOVOLOG FLEXPEN-LOW RESISTANCE 1 UNITS SC (13:04)
--- NOTE | 2024-01-05 13:45 | W.PN.VS ---
Today's Communication / Plan
-
See below.
Assessment/Plan
-
CLTI with poorly healing right foot/ankle wounds
Plan:
-Antibiotic plan finalized
-Non weight bearing right heel
-Continue VAC to right heel/medial ankle wound. Vac changed today. Appreciate wound care.
-Santyl to remaining wounds. Daily dressing changes
-PT/OT
-Case management following for home disposition planning vs. SNF
-Appreciate diabetic nurse practitioner recommendations for optimal blood glucose control
Subjective Data
-
Date of Service: January 05, 2024
Patient seen and examined at bedside, offers no complaints. Denies nausea, vomiting, fever, and chills.
Objective Data
-
Vital Signs
Temp Pulse Resp BP Pulse Ox
98.1 F 81 16 131/68 97
01/05/24 07:00 01/05/24 07:00 01/05/24 07:00 01/05/24 07:00 01/05/24 07:00
Intake and Output
01/04/24 01/05/24 01/06/24
06:59 06:59 06:59
Intake Total 1999 / 1999 1220 / 1220 120 / 120
Output Total 2350 / 2350 800 / 800 400 / 400
Balance -350 / -350 420 / 420 -280 / -280
Intake:
Oral fluids 1800 / 1800 1020 / 1020 120 / 120
IV piggybacks 200 / 200 200 / 200
Output:
Urine, Voided 2350 / 2350 800 / 800 400 / 400
Other:
Number of approximated MODERATE 2
amounts of urine
Lab Results
01/04/24 05:42
01/04/24 05:41
Calcium 8.5 mg/dl (8.4-10.2) 01/04/24 05:41
Physical Exam
-
No apparent distress, resting comfortably in bed
No tachycardia
No dyspnea on room air
Right foot wound VAC holding suction, site CDI
Right foot dressing clean dry and intact
--- NOTE | 2024-01-05 14:03 | WOUNDNOTE ---
[facility] RN note: Spoke with Vascular BOBBIN INSPECTOR Dimple Maki who stated she can connect his home vac pump to his vac dressing tomorrow morning if he gets discharged to home tomorrow. Dimple and RN Diane aware of where his home vac equipment is (under the sink just
inside patient room).
[2024-01-05 15:00] VITALS: BP 141/76
--- NOTE | 2024-01-05 15:00 | WOUNDNOTE ---
[facility] RN note: Vascular MANAGER TRANSPORT Dimple jade texted this writer producer stating patient going to SNF when discharged. Kenny texted YUNI Ferreira re: SNF will need a wound vac for patient's R heel, small black vac dressing being used. Picked up the ready
long term vac just inside patient's door and returned home vac back to consignment. Patient confirmed plan is SNF transfer when discharged.
--- NOTE | 2024-01-05 16:31 | CM ---
Change in discharge plan; patient now agreeable to go to a SNF; [facility] is his preference; [facility]
If referral is accepted by [facility], the facility will accept patient over the weekend; contact Eleni @ #[phone]
Plan: Discharge to SNF pending bed availability
[2024-01-05] MEDS: ROCEPHIN 2000 MG IV (16:35)
[2024-01-05] MEDS: STERILE WATER FOR INJECTION 20 ML IV (16:35)
--- NOTE | 2024-01-05 16:40 | W.PN.ID1 ---
Date of Service
Date of Service: January 05, 2024
Today's Communication
c/w current antibiotics
check qtc
stable for dc from ID perspective when outpatient IV antibiotics arranged - possibly snf
Assessment / Plan
Assessment / Plan
Osteomyelitis of the R calcaneous
Right heel dry gangrene
- s/p I&D and resection of third toe 09/05/2023
- s/p revision and further debridement 09/13/2023
- s/p TMA with closure 09/21/23
- s/p debridement x4 locations on right foot 01/01/24
PAD
DM type II (most recently uncontrolled; A1c = 8.8)
CKD
CAD
HTN
Dyslipidemia
Nephrolithiasis
Recommendations:
bone culture: Pseudomonas and GBS
MRSA nasal screen negative
Plan 6 week course of antibiotics
PICC in place
- c/w IV ceftriaxone 2 gm IV q24 (for GBS), also ciprofloxacin 500 mg po bid and metronidazole po TID all 01/03-02/13
- recheck QTc
- script given to window caser
Note calcaneal osteomyelitis carries a high risk for relapse even with an aggressive course of antibiotics; finding of MDRO Pseudomonas is quite concerning as well; I have reviewed my concerns that he is at real risk for treatment failure with
patient and his friend Nisha Figueroa who he trusts to help him make medical decisions. I have explained that in my opinion it is worth trying to treat him, but that I have to be up front that he still may require further amputation in the future if
treatment fails.
stable for dc from ID perspective when outpatient IV antibiotics arranged - possibly snf
Chief Complaint
-: Other (calcaneal osteomyelitis)
Subjective / Review of Systems
afebrile
bp stable
no new complaints
Vital Signs / Physical Exam
Vital Signs
Vital Signs
Temp Pulse Resp BP Pulse Ox
98.2 F 95 18 141/76 97
01/05/24 15:00 01/05/24 15:00 01/05/24 15:00 01/05/24 15:00 01/05/24 15:00
Physical Exam
Constitutional: No Acute Distress
Cardiovascular: Regular Rate
Pulmonary: Symmetric and Non Labored
Gastrointestinal: Non Distended
Wound: Other (dressing clean, dry, intact)
Objective Data
Lab Data
Lab Results
01/04/24 05:42
01/04/24 05:41
ESR 66 mm/hour (0-20) H 01/02/24 04:13
PT 14.6 Sec (11.4-14.6) 01/01/24 08:17
INR 1.11 01/01/24 08:17
APTT 32.5 Sec (23.4-35.0) 01/01/24 08:17
Estimated Creat Clear 44 ml/min 01/04/24 05:41
C-Reactive Protein 49.60 mg/L (0.0-10.00) H 01/02/24 04:13
Most recent labs reviewed.
Micro Results:
01/01/24 09:21 Tissue Culture - Final
Heel - Right Pseudomonas aeruginosa
Pseudomonas aeruginosa#2
Streptococcus agalactiae
Gram Stain - Final
01/01/24 14:06 MRSA Screen - Final
Nose No Methicillin Resistant Staphylococcus aureus isolated.
--- NOTE | 2024-01-05 16:54 | PTCARENOTE ---
Pt to be transferred to . Report called to Zev DHILLON, no questions. Care ongoing at this time.
[2024-01-05 17:41] LABS: Glucose - Point of Care 204 mg/dl (70-99)
[2024-01-05] MEDS: NOVOLOG FLEXPEN-LOW RESISTANCE 2 UNITS SC (17:41)
--- NOTE | 2024-01-05 17:53 | PTCARENOTE ---
pt received from 2S in bed. pt is a/o x 3, oriented to room, dinner delivered, accu chek completed, insulin given
[2024-01-05 17:55] VITALS: BP 132/70
[2024-01-05 22:12] LABS: Glucose - Point of Care 143 mg/dl (70-99)
[2024-01-05] MEDS: LANTUS 0.3 UNITS SC (22:36)
[2024-01-05 23:14] VITALS: BP 139/73
[2024-01-06] MEDS: FLAGYL 500 MG PO ×3 (00:21→16:45)
[2024-01-06] MEDS: HEPARIN 5000 UNITS SC ×3 (00:21→16:45)
[2024-01-06 05:12] VITALS: BMI 23.7
--- NOTE | 2024-01-06 06:55 | W.PN.VS ---
Addendum entered and electronically signed by Speedy Caraballo III, MD 01/06/24 09:05:
This patient was seen and examined with DARRIAN Ocampo. I agree with the history and physical exam as well as the assessment and plan.
Signed:
Speedy Caraballo III, MD
[facility] Vascular Surgery
[phone] (ktof)
Original Note:
Today's Communication / Plan
-
See below.
Assessment/Plan
-
CLTI with poorly healing right foot/ankle wounds
Plan:
-Antibiotic plan finalized
-Non weight bearing right heel
-Continue VAC to right heel/medial ankle wound. Appreciate wound care
-Santyl to remaining wounds. Daily dressing changes
-PT/OT
-Case management following for home disposition. Plan is now to halfway facility, insurance authorizations and placement pending
-Appreciate diabetic nurse practitioner recommendations for optimal blood glucose control
Subjective Data
-
Date of Service: January 06, 2024
Patient seen and examined at bedside, offers no complaints. Did endorse feeling overwhelmed following meeting with home infusion Workbooks regarding his initial decision for disposition to home with multiple services, he is worried that his friend
who assist him with dressing changes and other daily living functions may not be able to make it some days, which concerns him. He decided to reevaluate disposition plan and is now desiring halfway facility, agree with this plan as patient
lives alone would require multiple services and is nonweightbearing on right foot.
Objective Data
-
Vital Signs
Temp Pulse Resp BP Pulse Ox
98.0 F 91 18 139/73 99
01/05/24 23:14 01/05/24 23:14 01/05/24 23:14 01/05/24 23:14 01/06/24 03:19
Intake and Output
01/04/24 01/05/24 01/06/24
06:59 06:59 06:59
Intake Total 1999 / 1999 1220 / 1220 480 / 480
Output Total 2350 / 2350 800 / 800 850 / 850
Balance -350 / -350 420 / 420 -370 / -370
Intake:
Oral fluids 1800 / 1800 1020 / 1020 480 / 480
IV piggybacks 200 / 200 200 / 200
Output:
Urine, Voided 2350 / 2350 800 / 800 850 / 850
Other:
Number of approximated MODERATE 2
amounts of urine
Lab Results
01/04/24 05:42
01/04/24 05:41
Calcium 8.5 mg/dl (8.4-10.2) 01/04/24 05:41
Physical Exam
-
No apparent distress, resting comfortably in bed
No tachycardia
No dyspnea on room air
Right foot wound VAC holding suction, site CDI
Right foot dressing clean dry and intact
[2024-01-06 07:10] LABS: Glucose - Point of Care 156 mg/dl (70-99)
[2024-01-06 07:55] VITALS: BP 130/71
[2024-01-06] MEDS: NOVOLOG FLEXPEN 6 UNITS SC ×3 (08:24→16:46)
[2024-01-06] MEDS: NOVOLOG FLEXPEN-LOW RESISTANCE 1 UNITS SC ×3 (08:25→16:46)
[2024-01-06] MEDS: THERAGRAN 1 TABLET PO (08:25)
[2024-01-06] MEDS: VITAMIN D3 (cholecalciferol) 25 MCG PO (08:25)
[2024-01-06] MEDS: PLAVIX 75 MG PO (08:25)
[2024-01-06] MEDS: CIPRO 500 MG PO ×2 (08:25→21:00)
[2024-01-06] MEDS: LOW STRENGTH ASPIRIN 81 MG PO (08:26)
[2024-01-06] MEDS: SANTYL OINTMENT 1 APPLIC TOPICAL (08:26)
[2024-01-06] MEDS: NORVASC 2.5 MG PO (08:26)
[2024-01-06] MEDS: LIPITOR 40 MG PO (08:26)
[2024-01-06] MEDS: TOPROL XL 50 MG PO (08:26)
--- NOTE | 2024-01-06 11:01 | W.PN.ID1 ---
Date of Service
Date of Service: January 06, 2024
Today's Communication
Continue antibiotics.
Assessment / Plan
Osteomyelitis of the (R) calcaneus
Right heel dry gangrene
- s/p I&D and resection of third toe 09/05/2023
- s/p revision and further debridement 09/13/2023
- s/p TMA with closure 09/21/23
- s/p debridement x4 locations on right foot 01/01/24
PAD
DM type II (most recently uncontrolled; A1c = 8.8)
CKD
CAD
HTN
Dyslipidemia
Nephrolithiasis
Recommendations:
bone culture: Pseudomonas and GBS
MRSA nasal screen negative
Plan 6 week course of antibiotics
PICC in place
- c/w IV ceftriaxone 2 gm IV q24 (for GBS), also ciprofloxacin 500 mg po bid and metronidazole po TID; all through 01/03-02/13
- recheck QTc is 489
- script previously given to test case developer
����������������������������������������������������������
Chief Complaint
-: Other (calcaneal osteomyelitis)
Subjective / Review of Systems
Patient seen and examined. Reports no issues with antibiotics.
Review of Systems: No Fever and No Chills
Vital Signs / Physical Exam
Vital Signs
Vital Signs
Temp Pulse Resp BP Pulse Ox
97.7 F 86 16 130/71 98
01/06/24 07:55 01/06/24 07:55 01/06/24 07:55 01/06/24 07:55 01/06/24 07:55
Physical Exam
Constitutional: No Acute Distress, Comfortable and Non-toxic
Eyes: Sclera Anicteric
Cardiovascular: Regular Rate and S1/S2
Pulmonary: Symmetric and Non Labored
Gastrointestinal: Non Distended
Wound: Other (dressing clean, dry, intact. VAC in place.)
Neurological: Awake and Alert
Psychological: Calm
Objective Data
Lab Data
Lab Results
01/04/24 05:42
01/04/24 05:41
ESR 66 mm/hour (0-20) H 01/02/24 04:13
PT 14.6 Sec (11.4-14.6) 01/01/24 08:17
INR 1.11 01/01/24 08:17
APTT 32.5 Sec (23.4-35.0) 01/01/24 08:17
Estimated Creat Clear 44 ml/min 01/04/24 05:41
C-Reactive Protein 49.60 mg/L (0.0-10.00) H 01/02/24 04:13
Most recent labs reviewed.
Micro Results:
01/01/24 09:21 Tissue Culture - Final
Heel - Right Pseudomonas aeruginosa
Pseudomonas aeruginosa#2
Streptococcus agalactiae
Gram Stain - Final
01/01/24 14:06 MRSA Screen - Final
Nose No Methicillin Resistant Staphylococcus aureus isolated.
[2024-01-06 12:03] LABS: Glucose - Point of Care 167 mg/dl (70-99)
[2024-01-06 15:20] VITALS: BP 109/69
[2024-01-06 16:43] LABS: Glucose - Point of Care 169 mg/dl (70-99)
[2024-01-06] MEDS: ROCEPHIN 2000 MG IV (16:45)
[2024-01-06] MEDS: STERILE WATER FOR INJECTION 20 ML IV (16:46)
[2024-01-06 21:49] LABS: Glucose - Point of Care 215 mg/dl (70-99)
[2024-01-06] MEDS: LANTUS 0.3 UNITS SC (22:16)
[2024-01-06] MEDS: TYLENOL 650 MG PO (22:18)
[2024-01-06 23:11] VITALS: BP 112/68
[2024-01-07] MEDS: HEPARIN 5000 UNITS SC ×4 (00:20→23:54)
[2024-01-07] MEDS: FLAGYL 500 MG PO ×4 (00:20→23:54)
[2024-01-07 07:05] VITALS: BP 119/69
[2024-01-07 07:52] LABS: Glucose - Point of Care 154 mg/dl (70-99)
[2024-01-07] MEDS: LIPITOR 40 MG PO (08:04)
[2024-01-07] MEDS: LOW STRENGTH ASPIRIN 81 MG PO (08:04)
[2024-01-07] MEDS: TOPROL XL 50 MG PO (08:04)
[2024-01-07] MEDS: PLAVIX 75 MG PO (08:04)
[2024-01-07] MEDS: CIPRO 500 MG PO ×2 (08:04→20:22)
[2024-01-07] MEDS: NORVASC 2.5 MG PO (08:04)
[2024-01-07] MEDS: THERAGRAN 1 TABLET PO (08:04)
[2024-01-07] MEDS: VITAMIN D3 (cholecalciferol) 25 MCG PO (08:04)
[2024-01-07] MEDS: NOVOLOG FLEXPEN-LOW RESISTANCE 1 UNITS SC ×2 (08:05→17:50)
[2024-01-07] MEDS: SANTYL OINTMENT 1 APPLIC TOPICAL (08:05)
[2024-01-07] MEDS: NOVOLOG FLEXPEN 6 UNITS SC ×3 (08:06→17:50)
--- NOTE | 2024-01-07 08:24 | W.PN.UPDATE ---
Update Note
Progress Note Update
Continue VAC
IV ABX
Awaiting placement
[2024-01-07 12:11] LABS: Glucose - Point of Care 252 mg/dl (70-99)
[2024-01-07] MEDS: NOVOLOG FLEXPEN-LOW RESISTANCE 3 UNITS SC (12:54)
[2024-01-07 15:40] VITALS: BP 116/64
[2024-01-07 17:31] LABS: Glucose - Point of Care 157 mg/dl (70-99)
[2024-01-07] MEDS: ROCEPHIN 2000 MG IV (17:50)
[2024-01-07] MEDS: STERILE WATER FOR INJECTION 20 ML IV (17:50)
[2024-01-07] MEDS: TYLENOL 650 MG PO (20:24)
[2024-01-07 21:28] LABS: Glucose - Point of Care 132 mg/dl (70-99)
[2024-01-07] MEDS: LANTUS 0.3 UNITS SC (22:11)
[2024-01-07 23:20] VITALS: BP 108/69
[2024-01-08 07:00] VITALS: BP 115/66
[2024-01-08 07:05] VITALS: BP 115/66
[2024-01-08 07:42] LABS: Glucose - Point of Care 160 mg/dl (70-99)
--- NOTE | 2024-01-08 07:53 | PN.DE.MGMTRT ---
Insulin Management
- -
01/08/2024: Diabetes Management F/U:
Patient with non healing wound R foot s/p OR 12/31 for heel debridement and wound vac. Patient known to diabetes team from multiple admissions most recent 09/03 - 09/22 and 10/08 to 10/11).
PMH: ASCVD, HTN, HLD, CKD IIIb, Anemia of chronic disease/REGGIE c/b anemia 2/2 CKD, T2DM, PAD s/p angiogram with lithotripsy.
Last A1C was 10.1% on 09/04. Prior to admission was taking Lantus 30 units @ hs and Humalog ss with meals. A1C is 8.8% this admission, cr 1.9, eGFR 37.02.
Pt awake, A/Ox3, resting in bed, offers no complaints, able to discuss diabetes mgt.
Fasting glucose this AM 160, HS glucose last mariela 132. Pre meal glucose 154 to 252 requiring corrective insulin.
Will continue current regimen 6 units NovoLog AC with 30 units Lantus @ hs and moderate corrective with meals.
Discussed with patient use of standing insulin with each meal plus a modified lower dose scale if glucose > 150, he is agreeable. His notebook has been updated with new scale.
Will follow for further needed adjustments.
Diabetes History
- -
Type of Diabetes: 2 requiring insulin
Pre-Admission Diabetes Regimen
Lab Results
Hemoglobin A1c 8.8 % (4.0-5.6) H 01/02/24 04:13
Insulin Pump Settings
IP Diabetes Regimen
01/07/24 01/07/24 01/07/24
12:09 17:28 21:21
POC Glucose 252 H 157 H 132 H
01/08/24
07:41
POC Glucose 160 H
Meal type: Dinner
Meal type: Lunch
Meal type: Breakfast
Amount consumed: 100%
Amount consumed: 75%
Amount consumed: 100%
Patient Education
[2024-01-08] MEDS: NORVASC 2.5 MG PO (08:28)
[2024-01-08] MEDS: NOVOLOG FLEXPEN 6 UNITS SC ×2 (08:53→13:28)
[2024-01-08] MEDS: NOVOLOG FLEXPEN-LOW RESISTANCE 1 UNITS SC ×2 (08:55→13:28)
[2024-01-08] MEDS: TYLENOL 650 MG PO (08:55)
[2024-01-08] MEDS: TOPROL XL 50 MG PO (08:57)
[2024-01-08] MEDS: THERAGRAN 1 TABLET PO (08:57)
[2024-01-08] MEDS: LIPITOR 40 MG PO (08:57)
[2024-01-08] MEDS: VITAMIN D3 (cholecalciferol) 25 MCG PO (08:58)
[2024-01-08] MEDS: CIPRO 500 MG PO (08:59)
[2024-01-08] MEDS: LOW STRENGTH ASPIRIN 81 MG PO (08:59)
[2024-01-08] MEDS: PLAVIX 75 MG PO (09:00)
[2024-01-08] MEDS: FLAGYL 500 MG PO (09:00)
[2024-01-08] MEDS: HEPARIN 5000 UNITS SC (09:06)
--- NOTE | 2024-01-08 10:08 | W.PN.VS ---
Addendum entered and electronically signed by Shilo Goodwin MD 01/08/24 11:16:
Seen and examined with HOSE STRIPPER. Agree with findings as noted below. Plan/as discussed and noted below.
Original Note:
Today's Communication / Plan
-
Patient seen and examined at bedside with Dr. Shilo Goodwin, below plan reviewed with attending.
Assessment/Plan
-
CLTI with poorly healing right foot/ankle wounds
Plan:
- Patient medically stable for discharge.
-Antibiotic plan finalized
-Non weight bearing right heel
-Continue VAC to right heel/medial ankle wound. Appreciate wound care.
-Santyl to remaining wounds. Daily dressing changes
-PT/OT
-Case management following for home disposition. [facility] is now to [facility], insurance authorizations and placement pending.
-Appreciate diabetic nurse practitioner recommendations for optimal blood glucose control
Subjective Data
-
Date of Service: January 08, 2024
Patient seen and examined at bedside, offers no complaints. Denies nausea, vomiting, fever, and chills. Reports eagerness for [facility] to [facility].
Objective Data
-
Vital Signs
Temp Pulse Resp BP Pulse Ox
97.9 F 89 17 115/66 94
01/08/24 07:05 01/08/24 07:05 01/08/24 07:05 01/08/24 07:05 01/08/24 08:30
Intake and Output
01/07/24 01/08/24 01/09/24
06:59 06:59 06:59
Intake Total 1840 / 1840 880 / 880
Output Total 805 / 805 1350 / 1350
Balance 1035 / 1035 -470 / -470
Intake:
Oral fluids 1840 / 1840 880 / 880
Output:
Urine, Voided 805 / 805 1350 / 1350
Other:
Number of approximated SMALL 2
amounts of urine
Number of unmeasured liquid
stools
Rectum 1
Lab Results
01/04/24 05:42
01/04/24 05:41
Calcium 8.5 mg/dl (8.4-10.2) 01/04/24 05:41
Physical Exam
-
No apparent distress, resting comfortably in bed
No tachycardia
No dyspnea on room air
Right foot wound VAC holding suction, site CDI
Right foot dressing clean dry and intact
--- NOTE | 2024-01-08 10:14 | CM ---
Addendum entered by Marii Carpio 01/08/24 12:44:
Transport time 1430 - Eleni updated.
IMM explained & signed - in chart
Addendum entered by Marii Carpio 01/08/24 10:56:
[facility] will accept patient today per Eleni liaison
Needs covid test - tt physician
[facility]
Report #: [phone]
Fax #: [phone]
Transportation forms on chart- TIME tbd
Original Note:
Call left for Eleni liaison at [facility] regarding if they will accept patient.
Spoke with patient about additional choices - [facility] 2nd choice - referral sent in [facility]
CM will continue to follow up
Patient with a wound vac on R heel
PLAN: SNF, pending bed availability
[2024-01-08 12:08] LABS: COVID-19 Antigen Negative (Negative)
--- NOTE | 2024-01-08 12:16 | WOUNDNOTE ---
[facility] RN note: RN Orlando confirmed patient for discharge to [facility] today. Orlando instructed to remove patient's heel vac dressing and apply saline moistened gauze for transfer and SNF will apply their own vac. [facility] vac Ulta pump to go in
soiled utility room. YUNI Carpio notified SNF of need for wound vac earlier today.
--- NOTE | 2024-01-08 13:00 | W.DS.TRANS ---
DC Summary - Staff Certified Nurse Midwife
-
Discharge Instructions:
Discharge Diagnosis/Procedures Poorly healing right foot wounds and known
peripheral arterial occlusive disease
Sharp excisional debridement of right medial
ankle wound including skin, subcutaneous tissue,
fascia and bone (wound dimensions 6 cm x 2 cm)
and placement of VAC dressing. Sharp excisional
debridement of right dorsal foot wound including
skin and subcutaneous tissue (wound dimensions
2 cm x 2 cm). Sharp excisional debridement of
right distal forefoot wound including skin and
subcutaneous tissue (wound dimensions 2 cm x 2
cm). Sharp excisional debridement of right
lateral foot wound including skin and
subcutaneous tissue (wound dimensions 6 cm x 1
cm)
Diet Diabetic, Carb Controlled,As tolerated
Activity Do not bear weight R leg
Driving Restrictions No driving
Bathing Restrictions Okay to shower keeping right foot dry
Instructions:
Stand-Alone Forms: DC Instr - Vascular OR
Changes to Home Medications: Yes
Discharge Medications:
DC Medications w/original date entered in [employer]
atorvastatin 40 mg tablet 40 mg PO DAILY High Cholesterol 09/04/23
cholecalciferol (vitamin D3) 25 mcg (1,000 unit) tablet (Vitamin D3) 25 mcg PO DAILY Supplement 10/09/23
collagenase clostridium histo. 250 unit/gram topical ointment (Santyl) 1 applic topical DAILY right foot wounds 10/09/23
insulin glargine 100 unit/mL (3 mL) subcutaneous pen (Lantus Solostar U-100 Insulin) 30 unit SC HS Diabetes 10/09/23
yllvzcvfqqwg-kwm-epjey acid-vit K-lycop 400 mcg-20 mcg-370 mcg tablet (Men's 50 Plus Multivitamin) 1 tab PO DAILY 11/06/23
amlodipine 2.5 mg tablet 2.5 mg PO DAILY #30 tabs 11/14/23
aspirin 81 mg chewable tablet 81 mg PO DAILY 11/14/23
clopidogrel 75 mg tablet 75 mg PO DAILY #90 tabs 11/14/23
metoprolol succinate 50 mg tablet,extended release 24 hr 50 mg PO DAILY Blood Pressure 01/01/24
omega 4-bmy-fka-fish oil 1,200 mg (144 mg-216 mg) capsule (Fish Oil) 1 cap PO DAILY 01/01/24
ceftriaxone 2 gram solution for injection 2,000 mg IV Q24H #25 ea 01/06/24
ciprofloxacin HCl 500 mg tablet 500 mg PO BID 35 days #70 tabs 01/06/24
insulin aspart U-100 100 unit/mL (3 mL) subcutaneous pen 6 unit (0.06 mL) SC AC #15 mL 01/06/24
metronidazole 500 mg tablet 500 mg PO Q8 35 days #105 tabs 01/06/24
insulin aspart U-100 100 unit/mL (3 mL) subcutaneous pen (Novolog FlexPen U-100 Insulin aspart) 1 sliding scale dose SC AC #15 mL 01/08/24
Home Medication Changes
Added ceftriaxone 2 gram solution for injection 2,000 mg IV Q24H #25 ea 01/06/24
Added ciprofloxacin HCl 500 mg tablet 500 mg PO BID 35 days #70 tabs 01/06/24
Added insulin aspart U-100 100 unit/mL (3 mL) subcutaneous pen 6 unit (0.06 mL) SC AC #15 mL 01/06/24
Added metronidazole 500 mg tablet 500 mg PO Q8 35 days #105 tabs 01/06/24
Adjusted insulin aspart U-100 100 unit/mL (3 mL) subcutaneous pen (Novolog FlexPen U-100 Insulin aspart) 1 sliding scale dose SC AC #15 mL 01/08/24
Pending Results: Yes
--- NOTE | 2024-01-08 13:01 | W.DCSUMMARY ---
Discharge Summary
Discharge Data
Date of Admission: 01/01/24
Date of Discharge: 01/08/24
-
Pending Results: No
Hospital Course
Attending: Rashmi
Consultants: Infectious disease, diabetic management
Allergies: NKDA
Procedure with date: 01/01/2024:
1.) Sharp excisional debridement of right medial ankle wound including skin, subcutaneous tissue, fascia and bone (wound dimensions 6 cm x 2 cm) and placement of VAC dressing
2.) Sharp excisional debridement of right dorsal foot wound including skin and subcutaneous tissue (wound dimensions 2 cm x 2 cm)
3.) Sharp excisional debridement of right distal forefoot wound including skin and subcutaneous tissue (wound dimensions 2 cm x 2 cm)
4.) Sharp excisional debridement of right lateral foot wound including skin and subcutaneous tissue (wound dimensions 6 cm x 1 cm)
History of present illness: The patient is a 73-year-old male with multiple medical conditions including: CKD, CAD, hypertension, hyperlipidemia, nephrolithiasis, resection of third toe, many debridements, TMA, diabetes type 2. Patient presented on
01/01/2024 for scheduled procedure with Dr. Caraballo. Patient presented at baseline health with no reports of recent illness or trauma.
Hospital Course: Briefly, the patient underwent scheduled debridement without complications, and recovered in PACU. Following recovery phase one and two patient was transferred to the floor for continued monitoring. �Infectious disease consulted to
aid in medical management.
POD #1 (01/02/2024) Patient doing well overall and tolerating PO diet. Surgical site clean, dry, and intact with VAC no leak noted. �Patient seen by infectious disease, antibiotic plan in the works.
POD 2 (01/03/2024) diabetic management following and altering insulin as needed. �PT and OT consulted.� Wound care continues.� Case management following for discharge planning.
POD 3(01/04/2024) awaiting finalization of cultures.
POD 4(01/05/2024) cultures finalized.� Case management working on placement for patient.� Continue non-weightbearing to heel.
POD 5(01/06/2024) continue with same plan.
POD 6(01/07/2024) continue with same plan.
POD 7(01/08/2024) placement secured.� Patient able to ambulate without difficulty or incident. Patient stable for discharge to SNF.
Prescriptions and follow up appointment are included in the DC summary ceramic chemist note. All instructions were given to the patient in both written and verbal form and the patient expressed understanding.
Discharge Plan
-
Patient Disposition: Long-Term/SNF
Discharge Diagnosis/Procedures: Poorly healing right foot wounds and known peripheral arterial occlusive disease
Sharp excisional debridement of right medial ankle wound including skin, subcutaneous tissue, fascia and bone (wound dimensions 6 cm x 2 cm) and placement of VAC dressing. Sharp excisional debridement of right dorsal foot wound including skin and
subcutaneous tissue (wound dimensions 2 cm x 2 cm). Sharp excisional debridement of right distal forefoot wound including skin and subcutaneous tissue (wound dimensions 2 cm x 2 cm). Sharp excisional debridement of right lateral foot wound including
skin and subcutaneous tissue (wound dimensions 6 cm x 1 cm)
Condition: Good
Diet: As tolerated and Diabetic, Carb Controlled
Activity: Do not bear weight R leg
Driving Restrictions: No driving
Bathing Restrictions: Okay to shower keeping right foot dry
Activity Restrictions/Additional Instructions:
Wound Care Instructions
R foot: Negative pressure wound therapy (VAC), Vashe soak for 3 minutes, Use black foam, Change every 48 - 72 hours (i. e. Elcgfcx-Dycbrjnyvi-Vqzwbdn) and prn if unable to obtain a seal. Low Intensity, Continuous at 125 mmHg. Apply saline wet to dry
dressing if negative pressure air leak occurs and cannot be corrected within 2 hours until another vac dressing can be applied. Upon discharge or transfer to another facility, remove VAC foam and apply NS moistened gauze dressing unless home VAC
unit available.
R foot outside of NPWT: clean with saline, Santyl, adaptic and dry dressing daily (apply Kerlix loosely to secure).
NWB R foot.
Elevate heels off bed with pillows; elevate R heel off bed with pillow with air chair cushion on top. Use TruVue lite boot if needed and tolerated.
Air chair cushion
Follow up with vascular surgeon.
Low Dose Sliding Scale
Stand Alone Forms: DC Instr - Vascular OR
Referrals:
Sallie Rojas PA-C [Specified Professional Personl] - 01/17/24 10:30 am
Gene Banks DO [Family Provider] -
Additional Discharge Medication Instructions: All antibiotics (both IV and by mouth) to STOP on 02/14/2024
Prescriptions:
New
ciprofloxacin HCl 500 mg Tablet
500 mg PO BID 35 Days Qty: 70 0RF
metronidazole 500 mg Tablet
500 mg PO Q8 35 Days Qty: 105 0RF
ceftriaxone 2 gram Recon Soln
2,000 mg IV Q24H Qty: 25 0RF
insulin aspart U-100 100 unit/mL (3 mL) Insulin Pen
6 unit SC AC Qty: 15 0RF
insulin aspart U-100 [Novolog FlexPen U-100 Insulin] 100 unit/mL (3 mL) insulin pen
1 sliding scale dose SC AC Qty: 15 0RF
Continued
atorvastatin 40 MG tablet
40 mg PO DAILY
Santyl 250 unit/gram Ointment
1 applic TOPICAL DAILY
cholecalciferol (vitamin D3) [Vitamin D3] 25 mcg (1,000 unit) Tablet
25 mcg PO DAILY
insulin glargine [Lantus Solostar U-100 Insulin] 100 unit/mL (3 mL) Insulin Pen
30 unit SC HS
Men's 50 Plus Multivitamin 400-20-370 mcg Tablet
1 tab PO DAILY
aspirin 81 mg Tablet,Chewable
81 mg PO DAILY
amlodipine 2.5 mg Tablet
2.5 mg PO DAILY Qty: 30 0RF
clopidogrel 75 mg Tablet
75 mg PO DAILY Qty: 90 0RF
metoprolol succinate 50 mg tablet extended release 24 hr
50 mg PO DAILY
omega 6-onj-ydj-fish oil [Fish Oil] 1,200 (144-216) mg Capsule
1 cap PO DAILY
Discontinued
insulin lispro [Humalog KwikPen Insulin] 100 unit/mL Insulin Pen
0 - 8 sliding scale dose SC AC
cephalexin 500 mg Capsule
500 mg PO QID
Dakin's Solution 0.125 % solution
1 applic topical DAILY
Discharge Orders:
Discharge Patient (As Directed); Ordered 01/08/24
Ordered By: Dimple Maki
Discharge Date and Time
Print Language: MALIAN
[2024-01-08] MEDS: SANTYL OINTMENT 1 APPLIC TOPICAL (13:27)
[2024-01-08 13:29] LABS: Glucose - Point of Care 175 mg/dl (70-99)
[2024-01-08 14:10] VITALS: BP 116/60
--- NOTE | 2024-01-08 14:33 | W.PN.ID1 ---
Date of Service
Date of Service: January 08, 2024
Today's Communication
Continue antibiotics.
Assessment / Plan
Osteomyelitis of the (R) calcaneus
Right heel dry gangrene
- s/p I&D and resection of third toe 09/05/2023
- s/p revision and further debridement 09/13/2023
- s/p TMA with closure 09/21/23
- s/p debridement x4 locations on right foot 01/01/24
PAD
DM type II (most recently uncontrolled; A1c = 8.8)
CKD
CAD
HTN
Dyslipidemia
Nephrolithiasis
Recommendations:
bone culture: Pseudomonas and GBS
MRSA nasal screen negative
Continue 6 week course of antibiotics
PICC in place
- c/w IV ceftriaxone 2 gm IV q24 (for GBS), also ciprofloxacin 500 mg po bid and metronidazole po TID; all 01/04/24 through 02/14/2024
- recheck QTc is 489
- script previously given to child welfare caseworker
����������������������������������������������������������
Chief Complaint
-: Other (calcaneal osteomyelitis)
Subjective / Review of Systems
Review of Systems: No Fever and No Chills
Vital Signs / Physical Exam
Vital Signs
Vital Signs
Temp Pulse Resp BP Pulse Ox
98.3 F 86 17 116/60 99
01/08/24 14:10 01/08/24 14:10 01/08/24 14:10 01/08/24 14:10 01/08/24 14:10
Physical Exam
Constitutional: No Acute Distress, Comfortable and Non-toxic
Eyes: Sclera Anicteric
Cardiovascular: Regular Rate and S1/S2
Pulmonary: Non Labored
Gastrointestinal: Non Distended
Wound: Other (dressing clean, dry, intact. VAC in place.)
Neurological: Awake and Alert
Psychological: Calm
Objective Data
Lab Data
Lab Results
01/04/24 05:42
01/04/24 05:41
ESR 66 mm/hour (0-20) H 01/02/24 04:13
PT 14.6 Sec (11.4-14.6) 01/01/24 08:17
INR 1.11 01/01/24 08:17
APTT 32.5 Sec (23.4-35.0) 01/01/24 08:17
Estimated Creat Clear 44 ml/min 01/04/24 05:41
C-Reactive Protein 49.60 mg/L (0.0-10.00) H 01/02/24 04:13
Most recent labs reviewed.
Micro Results:
01/01/24 09:21 Tissue Culture - Final
Heel - Right Pseudomonas aeruginosa
Pseudomonas aeruginosa#2
Streptococcus agalactiae
Gram Stain - Final
01/01/24 14:06 MRSA Screen - Final
Nose No Methicillin Resistant Staphylococcus aureus isolated.
--- NOTE | 2024-01-08 15:44 | WOUNDNOTE ---
WO RN note: t/c Spoke with [facility] nurse Mely and clarified the wound vac goes on patient's R heel wound, change q 48-72 hours (i.e. MWF), and other foot ulcers get Santyl, adaptic, ABD pad, secure loosely with Kerlix daily. Notified
[employer] via [employer] of hospital rental vac Ulta pump poultry picker as or 01/08/24 and poultry picker (work order # [id number]).
--- NOTE | 2024-01-08 15:51 | PTCARENOTE ---
Discharge orders written. Wound vac removed and wet to dry dressing placed. Pt discharged with RUE single lumen PICC for outpatient antibiotics. Report called to Laverne at [facility]. Acute care transported.
--- NOTE | 2024-01-09 07:19 | W.PN.UPDATE ---
Update Note
Progress Note Update
In response to CDI:
Pt admitted for incisional debridement of poorly healing foot/ankle wounds.
Clarify which of the following accurately represents the patient's renal status:
CKD, please provide stage - Per documentation on 09/22 by chief data officer patient is CKD stage 3b baseline cr 1.4-1.7. Creatine not deviating far form baseline while inpatient at 1.6 on admission to 1.9 and 1.8. It was monitored via BMP to ensure
stabilization.
== END 2024-01-08 15:37 | DRG 264 ==
LOC: 2 NORTH 09:20
PROVIDERS: Nurse Practitioner; Radiology Diagnostic Radiology; ADMITTING PHYSICIAN Surgery Vascular Surgery; FAMILY PHYSICIAN Family Medicine; OTHER PHYSICIAN Student in an Organized Health Care Education/Training Program
PROC: 0JBQ0ZZ Excision of Right Foot Subcutaneous Tissue and Fascia, Open Approach (ICD-10-PCS; 2024-01-01)
PROC: 2W1QX6Z Compression of Right Lower Leg using Pressure Dressing (ICD-10-PCS; 2024-01-01)
PROC: 0QBL0ZZ Excision of Right Tarsal, Open Approach (ICD-10-PCS; 2024-01-01)
PROC: 02HV33Z Insertion of Infusion Device into Superior Vena Cava, Percutaneous Approach (ICD-10-PCS; 2024-01-02)
DX: E11.52 Type 2 diabetes mellitus with diabetic peripheral angiopathy with gangrene (principal); M86.8X7 Other osteomyelitis, ankle and foot; Z16.24 Resistance to multiple antibiotics; L97.414 Non-pressure chronic ulcer of right heel and midfoot with necrosis of bone; I70.261 Atherosclerosis of native arteries of extremities with gangrene, right leg; E11.69 Type 2 diabetes mellitus with other specified complication; B96.5 Pseudomonas (aeruginosa) (mallei) (pseudomallei) as the cause of diseases classified elsewhere; E11.628 Type 2 diabetes mellitus with other skin complications; E11.22 Type 2 diabetes mellitus with diabetic chronic kidney disease; I25.10 Atherosclerotic heart disease of native coronary artery without angina pectoris; I12.9 Hypertensive chronic kidney disease with stage 1 through stage 4 chronic kidney disease, or unspecified chronic kidney disease; E78.5 Hyperlipidemia, unspecified; N20.0 Calculus of kidney; N18.32 Chronic kidney disease, stage 3b; D63.1 Anemia in chronic kidney disease; Z60.2 Problems related to living alone; Z11.52 Encounter for screening for COVID-19
CPT/HCPCS: 11042; 11044; 71045; 80048; 82962; 83036; 85027; 85610; 85652; 85730; 86140; 87070; 87077; 87147; 87176; 87186; 87205; 87811; 93005; 97163; 97166; 97530

== ENCOUNTER 2024-01-26 09:29 | Inpatient (IN) | payer MEDICARE, OTHER, SELFPAY ==
--- NOTE | 2024-01-22 12:13 | PTCARENOTE ---
Using EKG from 01/05/24 per office, see EKG scanned,dated 12/03/19, showing prior history of bifascicular block.
--- NOTE | 2024-01-23 13:00 | CM ---
Spoke with Eleni at [facility].
Per Eleni patient coming in for a procedure, can not guarantee a bed will be available unless patient agrees to private pay for a bed hold.
Per Eleni patient is not agreeable to paying for a bed hold.
Skilled rehab would be based on bed availability the day of discharge and skilled need.
[2024-01-26] VITALS (13 sets, daily range): BP systolic 99–146; BP diastolic 55–82; BMI 23.0
[2024-01-26] MEDS: BACTROBAN NASAL 1 GRAM NASAL (10:12)
[2024-01-26] MEDS: PERIDEX 0.12% ORAL RINSE 15 ML PO (10:12)
[2024-01-26 11:09] LABS: Hematocrit 36.8 % (39.0-52.0); Hemoglobin 11.8 g/dL (13.0-18.0); Mean Corp Hgb Conc. 32.1 g/dL (33.0-37.0); Mean Corpuscular Hgb 27.1 pg (27.0-31.0); Mean Corpuscular Volume 84.6 fL (80.0-94.0); Mean Platelet Volume 9.5 fL (7.4-10.4); Platelet Count 229 10^3/uL (130-400); Red Blood Cell Count 4.35 10^6/uL (4.70-6.10); White Blood Cell Count 6.9 10^3/uL (4.8-10.8)
[2024-01-26 11:11] LABS: Glucose - Point of Care 196 mg/dl (70-99)
[2024-01-26 11:19] LABS: PT 15.5 Sec (11.4-14.6)
[2024-01-26 11:20] LABS: APTT 31.7 Sec (23.4-35.0)
[2024-01-26 11:23] LABS: Blood Urea Nitrogen 35 mg/dl (9-20); Calcium 8.6 mg/dl (8.4-10.2); Carbon Dioxide 24 mmol/L (22-30); Chloride 108 mmol/L (98-107); Glucose 200 mg/dl (70-99); Potassium 4.5 mmol/L (3.5-5.1); Sodium 138 mmol/L (135-145)
[2024-01-26] MEDS: NOVOLOG vial 2 UNITS SC (11:34)
[2024-01-26 15:13] LABS: Glucose - Point of Care 137 mg/dl (70-99)
--- NOTE | 2024-01-26 16:57 | OR.RPT ---
Operative Report
Operative Report
Date of Operation: 01/26/2024
Pre Op Diagnosis: Nonhealing right foot and ankle wounds
Post Op Diagnosis: Nonhealing right foot and ankle wounds
Procedure: Right lower extremity amputation below the knee
Surgeon: Speedy Caraballo III, MD
Plush Finisher: Phu Abdi MD PhD, PGY2
Anesthesia: General
Complications: None
Estimated Blood Loss: 250 cc
History and Indications for Procedure: 73-year-old male with known peripheral arterial occlusive disease and status post several endovascular limb salvage attempts. 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
osteomyelitis. He declined further attempts at limb salvage and therefore below the knee amputation was recommended.
Procedure in Detail: Flaquito Jamil was correctly identified and placed supine on the operating table. After adequate induction of anesthesia the right leg was prepped and draped in the usual sterile fashion. A timeout procedure was performed with the
nursing and anesthesia staff confirming the patient's identity as well as the nature and laterality of the procedure. A transverse incision was made approximately 1 hands-breadth below the tibial tuberosity and carried medially and laterally to the
senior living points on the calf. The incision was then turned along the long axis of the calf and carried down towards the ankle to create the posterior flap. Electrocautery was used on the subcutaneous tissue and muscle of the anterior and lateral
tissue. The anterior tibial artery and vein were identified and then ligated and divided between silk ties. The tibia and fibula were each circumferentially exposed. A periosteal elevator was used on each to elevate the periosteum more proximally.
The tibia was then divided with a saw. The anterior surface was beveled and smoothed with the saw and a rasp. The fibula was then divided more proximally than the tibia and all edges were smoothed with the assistance of a rasp. The amputation was
then completed using an amputation knife and electrocautery along the posterior flap. The leg was then passed off to the back table to be sent to pathology. Hemostasis was achieved along the posterior flap using a combination of electrocautery and
interrupted silk suture ligatures. Once hemostasis was achieved the wound was irrigated with warm saline solution. The wound was then closed in multiple layers. Sterile dressings were applied.
The patient tolerated the procedure well and was taken to the PACU in stable condition.
Attestation: I was present and responsible for the entire procedure
Signed:
Speedy Caraballo III, MD
[facility] Vascular Surgery
[phone] (hfoq)
[2024-01-26 17:01] LABS: Glucose - Point of Care 150 mg/dl (70-99)
[2024-01-26] MEDS: DILAUDID 0.5 MG IV (17:08)
--- NOTE | 2024-01-26 17:19 | W.IMMPOSTOP ---
Surgical Immed Post Op Note
-
Primary Surgeon: Dr. Speedy Caraballo III, MD
Assisting Surgeon: Phu Abdi MD, PhD (PGY-2)
Pre-op Diagnosis: Non healing foot and ankle wounds on right lower extremity
Post-op Diagnosis: Non healing foot and ankle wounds on right lower extremity
Procedure Performed: Right below knee amputation
Anesthesia Type: General
Specimen / Cultures: None
Estimated Blood Loss: 100cc
Complications: None
Operative Findings: The patient was brought to the OR and placed in the supine position. He was prepped and draped in usual sterile fashion. Incision was made on the right lower extremity and electrocautery was used to transect through the fascia
and muscles in the anterior and lateral compartments. The anterior tibial artery was identified and ligated with silk suture before transection. A bone saw was used to transect the tibia and fibula. Hemostasis was achieved along the wound bed. The
amputation was completed without complication. The posterior aspect of the wound was raised and brought superiorly as a flap to close the defect. Interrupted 2-0 and 3-0 sutures along with skin jemma were used to close the wound. The wound was
dressed with vaseline gauze, abd pads, kerlix, and kiel wrap. The patient was transported to the PACU in stable condition.
[2024-01-26] MEDS: DILAUDID PCA 30 IV (17:35)
[2024-01-26] MEDS: NSS 1000 IV (18:28)
[2024-01-26 18:30] LABS: Hematocrit 34.2 % (39.0-52.0); Hemoglobin 11.2 g/dL (13.0-18.0); Mean Corp Hgb Conc. 32.7 g/dL (33.0-37.0); Mean Corpuscular Hgb 27.7 pg (27.0-31.0); Mean Corpuscular Volume 84.4 fL (80.0-94.0); Mean Platelet Volume 9.4 fL (7.4-10.4); Platelet Count 226 10^3/uL (130-400); Red Blood Cell Count 4.05 10^6/uL (4.70-6.10); Red Cell Dist. Width 16.1 % (11.5-14.5)
[2024-01-26 18:57] LABS: Blood Urea Nitrogen 35 mg/dl (9-20); Calcium 8.1 mg/dl (8.4-10.2); Carbon Dioxide 22 mmol/L (22-30); Chloride 109 mmol/L (98-107); Estimated Creatinine Clearance 53 ml/min; Glucose 181 mg/dl (70-99); Potassium 4.4 mmol/L (3.5-5.1); Sodium 138 mmol/L (135-145); eGFR 49.16
[2024-01-26] MEDS: HEPARIN 5000 UNITS SC (20:44)
[2024-01-26] MEDS: COLACE PO (20:44)
[2024-01-26 21:41] LABS: Glucose - Point of Care 225 mg/dl (70-99)
[2024-01-26] MEDS: LANTUS 0.1 UNITS SC (22:05)
[2024-01-26] MEDS: PERCOCET 5/325 2 TABLET PO (23:49)
[2024-01-27 03:18] VITALS: BP 119/60
[2024-01-27 06:23] LABS: INR 1.22; PT 15.7 Sec (11.4-14.6)
[2024-01-27 06:24] LABS: APTT 32.7 Sec (23.4-35.0)
[2024-01-27 06:26] LABS: Hemoglobin 10.1 g/dL (13.0-18.0); Mean Corp Hgb Conc. 31.6 g/dL (33.0-37.0); Mean Corpuscular Hgb 27.3 pg (27.0-31.0); Mean Corpuscular Volume 86.5 fL (80.0-94.0); Mean Platelet Volume 9.3 fL (7.4-10.4); Platelet Count 214 10^3/uL (130-400); White Blood Cell Count 7.8 10^3/uL (4.8-10.8)
[2024-01-27 06:44] LABS: Blood Urea Nitrogen 36 mg/dl (9-20); Calcium 7.7 mg/dl (8.4-10.2); Carbon Dioxide 24 mmol/L (22-30); Chloride 108 mmol/L (98-107); Estimated Creatinine Clearance 46 ml/min; Glucose 246 mg/dl (70-99); Potassium 5.2 mmol/L (3.5-5.1); Sodium 139 mmol/L (135-145)
[2024-01-27 07:05] VITALS: BP 121/59
[2024-01-27 07:17] LABS: Glucose - Point of Care 238 mg/dl (70-99)
[2024-01-27] MEDS: HEPARIN 5000 UNITS SC ×2 (08:00→19:33)
[2024-01-27] MEDS: COLACE PO (08:02)
[2024-01-27] MEDS: TOPROL XL 50 MG PO (08:02)
[2024-01-27] MEDS: VITAMIN D3 (cholecalciferol) 25 MCG PO (08:03)
[2024-01-27] MEDS: LOW STRENGTH ASPIRIN 81 MG PO (08:03)
[2024-01-27] MEDS: LIPITOR 40 MG PO (08:03)
[2024-01-27] MEDS: NORVASC 2.5 MG PO (08:03)
[2024-01-27] MEDS: PLAVIX 75 MG PO (08:03)
--- NOTE | 2024-01-27 08:29 | W.PN.VS ---
Today's Communication / Plan
-
Patient seen and evaluated at bedside with Dr. Sallie Melendez, below plan reviewed with attending.
Assessment/Plan
-
Assessment: 73-year-old male POD #1 right BKA
Plan:
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 pain medication suspect patient's intermittent lightheadedness is due to patient being opioid na�ve
Will change BKA dressing tomorrow
PT/OT
Discontinue Caraballo catheter
Encourage incentive spirometer
Consult for case management for disposition planning
Consult to PMR for possible Long placement
Subjective Data
-
Date of Service: January 27, 2024
Patient seen and evaluated at bedside, reports well-managed postoperative pain. Denies nausea, vomiting, fever, and chills. Does endorse sensation of lightheadedness on occasion.
Objective Data
-
Vital Signs
Temp Pulse Resp BP Pulse Ox
98.0 F 94 16 121/59 100
01/27/24 07:05 01/27/24 08:03 01/27/24 08:00 01/27/24 08:03 01/27/24 08:00
Intake and Output
01/26/24 01/27/24 01/28/24
06:59 06:59 06:59
Intake Total 1160 / 1160
Output Total 950 / 950
Balance 210 / 210
Intake:
Oral fluids 100 / 100
IV fluids (Total) 1060 / 1060
NSS 100 / 100
Output:
Urine, Caraballo 950 / 950
Lab Results
01/27/24 05:49
01/27/24 05:49
Calcium 7.7 mg/dl (8.4-10.2) L 01/27/24 05:49
Physical Exam
-
Awake alert oriented x 3, no apparent distress
No tachycardia
No dyspnea on room air
ABD flat, nontender, nondistended
Right BKA site clean dry and intact
Caraballo draining clear yellow urine
[2024-01-27] MEDS: NOVOLOG FLEXPEN 6 UNITS SC ×3 (08:52→17:36)
[2024-01-27] MEDS: NOVOLOG FLEXPEN-MODERATE RESISTANCE 3 UNITS SC ×3 (08:53→17:37)
--- NOTE | 2024-01-27 11:22 | CM ---
CM met with pt at bedside.
Pt home address on face sheet [address] [place] [id number] is a [address] where he resides alone, with 3 [address]EV[address]. Uses WC at baseline. Reports home is WC accessible.
Pt confirms presents from [facility].
Discussed dispo and offered choice of facility. Pt is very interested in [facility] at [place]. Reviewed levels of rehab acute vs snf. PT/OT evals pending. CM to follow up with pt after therapy notes are in.
Will send referral via [facility] to [facility] now.
[2024-01-27 11:25] VITALS: BP 117/70
[2024-01-27 11:47] LABS: Glucose - Point of Care 221 mg/dl (70-99)
[2024-01-27] MEDS: TYLENOL 650 MG PO ×4 (12:07→22:59)
[2024-01-27] MEDS: ROXICODONE 5 MG PO ×3 (13:50→22:59)
--- NOTE | 2024-01-27 14:30 | PTCARENOTE ---
Patient tachy on tele monitor. Denies chest pain. Dr. Melendez made aware. Order for EKG, CBC, CMP and Troponin levels in place. Plan of care ongoing.
[2024-01-27 15:00] VITALS: BP 104/59
[2024-01-27 15:11] LABS: Hematocrit 31.6 % (39.0-52.0); Hemoglobin 10.2 g/dL (13.0-18.0); Mean Corp Hgb Conc. 32.3 g/dL (33.0-37.0); Mean Corpuscular Hgb 27.6 pg (27.0-31.0); Mean Corpuscular Volume 85.4 fL (80.0-94.0); Mean Platelet Volume 9.5 fL (7.4-10.4); Platelet Count 205 10^3/uL (130-400); Red Cell Dist. Width 16.1 % (11.5-14.5); White Blood Cell Count 7.1 10^3/uL (4.8-10.8)
[2024-01-27 15:20] LABS: Blood Urea Nitrogen 38 mg/dl (9-20); Carbon Dioxide 28 mmol/L (22-30); Chloride 103 mmol/L (98-107); Estimated Creatinine Clearance 49 ml/min; Glucose 209 mg/dl (70-99); Potassium 4.6 mmol/L (3.5-5.1); Sodium 139 mmol/L (135-145)
[2024-01-27 15:32] LABS: Troponin I < 0.012 ng/ml
[2024-01-27 16:55] LABS: Glucose - Point of Care 218 mg/dl (70-99)
[2024-01-27] MEDS: ROXICODONE 10 MG PO (17:35)
[2024-01-27 19:11] VITALS: BP 129/67
[2024-01-27] MEDS: COLACE 100 MG PO (19:33)
[2024-01-27 21:47] LABS: Glucose - Point of Care 154 mg/dl (70-99)
[2024-01-27] MEDS: LANTUS 0.1 UNITS SC (22:57)
[2024-01-27 23:09] VITALS: BP 116/65
[2024-01-28] VITALS (7 sets, daily range): BP systolic 100–133; BP diastolic 54–65; PULSE 93–104; O2SAT 99
[2024-01-28] MEDS: TYLENOL 650 MG PO ×4 (03:52→21:20)
[2024-01-28] MEDS: ROXICODONE 5 MG PO ×3 (03:52→21:19)
[2024-01-28 05:55] LABS: Hematocrit 30.2 % (39.0-52.0); Hemoglobin 9.5 g/dL (13.0-18.0); Mean Corp Hgb Conc. 31.5 g/dL (33.0-37.0); Mean Corpuscular Hgb 27.1 pg (27.0-31.0); Mean Corpuscular Volume 86.3 fL (80.0-94.0); Mean Platelet Volume 9.6 fL (7.4-10.4); Platelet Count 189 10^3/uL (130-400); Red Cell Dist. Width 16.2 % (11.5-14.5); White Blood Cell Count 8.1 10^3/uL (4.8-10.8)
[2024-01-28 06:18] LABS: Blood Urea Nitrogen 36 mg/dl (9-20); Calcium 7.9 mg/dl (8.4-10.2); Carbon Dioxide 25 mmol/L (22-30); Chloride 107 mmol/L (98-107); Estimated Creatinine Clearance 44 ml/min; Glucose 161 mg/dl (70-99); Potassium 4.9 mmol/L (3.5-5.1); Sodium 137 mmol/L (135-145)
[2024-01-28 07:08] LABS: Glucose - Point of Care 148 mg/dl (70-99)
--- NOTE | 2024-01-28 07:43 | W.PN.VS ---
Today's Communication / Plan
-
as above
Assessment/Plan
-
Assessment: 73-year-old male POD #2 right BKA
Plan:
Continue po pain regimen
qday bka dressing changes
PT/OT
Encourage incentive spirometer
Consult for case management for disposition planning
Consult to PMR for possible Long placement
Subjective Data
-
Date of Service: January 28, 2024
No acute events. No longer feels 'dizzy'
Objective Data
-
Vital Signs
Temp Pulse Resp BP Pulse Ox
98.4 F 91 18 110/54 98
01/28/24 07:00 01/28/24 07:00 01/28/24 07:00 01/28/24 07:00 01/28/24 07:00
Intake and Output
01/27/24 01/28/24 01/29/24
06:59 06:59 06:59
Intake Total 1160 / 1160 1790 / 1790
Output Total 950 / 950 975 / 975
Balance 210 / 210 815 / 815
Intake:
Oral fluids 100 / 100 1790 / 1790
IV fluids (Total) 1060 / 1060
NSS 100 / 100
Output:
Urine, Caraballo 950 / 950 975 / 975
Other:
Number of unmeasured liquid
stools
Rectum 1
Lab Results
01/28/24 05:04
01/28/24 05:04
Calcium 7.9 mg/dl (8.4-10.2) L 01/28/24 05:04
Physical Exam
-
R bka stump c/d/i
[2024-01-28] MEDS: TOPROL XL 50 MG PO (08:03)
[2024-01-28] MEDS: COLACE 100 MG PO (08:03)
[2024-01-28] MEDS: VITAMIN D3 (cholecalciferol) 25 MCG PO (08:03)
[2024-01-28] MEDS: PLAVIX 75 MG PO (08:04)
[2024-01-28] MEDS: NORVASC 2.5 MG PO (08:04)
[2024-01-28] MEDS: LIPITOR 40 MG PO (08:04)
[2024-01-28] MEDS: LOW STRENGTH ASPIRIN 81 MG PO (08:04)
[2024-01-28] MEDS: HEPARIN 5000 UNITS SC ×2 (08:04→20:01)
[2024-01-28] MEDS: NOVOLOG FLEXPEN 6 UNITS SC ×3 (08:05→17:38)
[2024-01-28] MEDS: NOVOLOG FLEXPEN-MODERATE RESISTANCE SC ×2 (08:05→16:16)
[2024-01-28 11:05] LABS: Glucose - Point of Care 191 mg/dl (70-99)
[2024-01-28] MEDS: NOVOLOG FLEXPEN-MODERATE RESISTANCE 1 UNITS SC (11:48)
[2024-01-28] MEDS: TYLENOL PO ×2 (15:43→23:24)
[2024-01-28 16:10] LABS: Glucose - Point of Care 149 mg/dl (70-99)
[2024-01-28] MEDS: COLACE PO (19:59)
[2024-01-28 21:23] LABS: Glucose - Point of Care 164 mg/dl (70-99)
[2024-01-28] MEDS: LANTUS 0.1 UNITS SC (21:24)
[2024-01-29] MEDS: ROXICODONE 5 MG PO ×2 (03:09→16:35)
[2024-01-29] MEDS: TYLENOL 650 MG PO ×4 (03:09→23:07)
[2024-01-29 03:12] VITALS: BP 131/70
--- NOTE | 2024-01-29 03:39 | PTCARENOTE ---
Patient's post void residual- 452. patient refused to get straight cath at this time.
[2024-01-29 06:00] LABS: Hematocrit 27.2 % (39.0-52.0); Hemoglobin 8.8 g/dL (13.0-18.0); Mean Corp Hgb Conc. 32.4 g/dL (33.0-37.0); Mean Corpuscular Hgb 27.5 pg (27.0-31.0); Mean Platelet Volume 9.3 fL (7.4-10.4); Platelet Count 197 10^3/uL (130-400); Red Cell Dist. Width 15.9 % (11.5-14.5); White Blood Cell Count 7.3 10^3/uL (4.8-10.8)
[2024-01-29 06:31] LABS: Blood Urea Nitrogen 29 mg/dl (9-20); Calcium 7.9 mg/dl (8.4-10.2); Carbon Dioxide 23 mmol/L (22-30); Chloride 105 mmol/L (98-107); Estimated Creatinine Clearance 49 ml/min; Glucose 120 mg/dl (70-99); Potassium 4.1 mmol/L (3.5-5.1); Sodium 136 mmol/L (135-145)
[2024-01-29 07:00] VITALS: BP 128/65
[2024-01-29 08:08] LABS: Glucose - Point of Care 136 mg/dl (70-99)
[2024-01-29] MEDS: VITAMIN D3 (cholecalciferol) 25 MCG PO (08:15)
[2024-01-29] MEDS: LIPITOR 40 MG PO (08:15)
[2024-01-29] MEDS: NORVASC 2.5 MG PO (08:15)
[2024-01-29] MEDS: TOPROL XL 50 MG PO (08:15)
[2024-01-29] MEDS: LOW STRENGTH ASPIRIN 81 MG PO (08:15)
[2024-01-29] MEDS: NOVOLOG FLEXPEN-MODERATE RESISTANCE SC (08:16)
[2024-01-29] MEDS: NOVOLOG FLEXPEN 6 UNITS SC ×3 (08:16→17:26)
[2024-01-29] MEDS: PLAVIX 75 MG PO (08:16)
[2024-01-29] MEDS: HEPARIN 5000 UNITS SC ×2 (08:16→20:24)
[2024-01-29] MEDS: COLACE 100 MG PO ×2 (08:16→20:24)
--- NOTE | 2024-01-29 08:20 | W.IMMPOSTOP ---
Surgical Immed Post Op Note
-
Primary Surgeon: Dr. Speedy Caraballo III, MD
Assisting Surgeon: Phu Abdi MD, PhD (PGY-2)
Pre-op Diagnosis: Non-healing right lower extremity wounds
Post-op Diagnosis: Non-healing right lower extremity wounds
Procedure Performed: Right BKA
Anesthesia Type: General
Specimen / Cultures: None
Estimated Blood Loss: 250cc
Complications: None
Operative Findings: The patient was brought to the OR and placed in the supine position. The patient was prepped and draped in usual sterile fashion. A transverse incision was made at the senior living point of the calf, with a posterior flap created.
Electrocautery was used to dissect the tissues of the anterior and lateral compartment. The AT artery was identified and ligated with silk ties. The tibia and fibula was then exposed and divided with a saw. All edges of the bone were beveled. The
posterior flap was brought over the incision. Hemostasis was ensured. The flap was closed with 2-0 and 3-0 sutures with jemma at the skin. The wound was dressed with vaseline gauze, abd pads, kerlix, and kiel wrap. The patient was transported to
the PACU in stable condition.
--- NOTE | 2024-01-29 08:30 | PTCARENOTE ---
Patient retaining urine after bosch removed 01/27. Patient BS for 549 mL. Patient refusing to be straight cathed Dimple Maki made aware. Flomax ordered.
[2024-01-29] MEDS: FLOMAX 0.4 MG PO (08:40)
--- NOTE | 2024-01-29 10:36 | W.PN.VS ---
Addendum entered and electronically signed by Speedy Caraballo III, MD 01/29/24 18:00:
This patient was seen and examined with DARRIAN Price. I agree with the history and physical exam as well as the assessment and plan. I have the following additions:
Late entry
Overall doing well with the exception of urinary retention
Flomax started
Intermittent straight cath, may need Caraballo catheter inserted
Continue rehab evaluation/assessment
Amputation site clean, dry
Signed:
Speedy Caraballo III, MD
[facility] Vascular Surgery
[phone] (iqkg)
Original Note:
Today's Communication / Plan
-
Seen and assessed with Dr Caraballo
Assessment/Plan
-
Assessment: 73-year-old male POD #3 right BKA
Plan:
Start flomax, reassess voiding/PVR this am
PT/OT
Consult for case management for disposition planning
Consult to PMR for possible Long placement
OK for DC from vasc standpoint
Subjective Data
-
Date of Service: January 29, 2024
Pt seen at bedside this am with Dr Caraballo. Pt offers no complaints at this time. No events overnight. Pain well controlled.
Objective Data
-
Vital Signs
Temp Pulse Resp BP Pulse Ox
98.8 F 96 16 128/65 96
01/29/24 07:00 01/29/24 07:00 01/29/24 07:00 01/29/24 07:00 01/29/24 07:00
Intake and Output
01/28/24 01/29/24 01/30/24
06:59 06:59 06:59
Intake Total 1790 / 1790 1440 / 1440
Output Total 975 / 975 1475 / 1475
Balance 815 / 815 -35 / -35
Intake:
Oral fluids 1790 / 1790 1200 / 1200
Amount of oral supplement(s) 240 / 240
consumed
Output:
Urine, Caraballo 975 / 975
Urine, Voided 875 / 875
Straight cath output 600 / 600
Other:
Number of approximated MODERATE 1
amounts of urine
Number of unmeasured liquid
stools
Rectum 1
Lab Results
01/29/24 05:42
01/29/24 05:42
Calcium 7.9 mg/dl (8.4-10.2) L 01/29/24 05:42
Physical Exam
-
Awake alert oriented x 3, no apparent distress
No tachycardia
No dyspnea on room air
ABD flat, nontender, nondistended
Right BKA site clean dry and intact
--- NOTE | 2024-01-29 11:08 | PTCARENOTE ---
Flomax administered. Patient still retaining. BS for >649 mL. Patient agreeable to straight cath. Patient agitated during straight cath. Output is 700 mL.
[2024-01-29 12:22] LABS: Glucose - Point of Care 197 mg/dl (70-99)
[2024-01-29] MEDS: TYLENOL PO ×2 (12:33→16:10)
[2024-01-29] MEDS: NOVOLOG FLEXPEN-MODERATE RESISTANCE 1 UNITS SC (12:34)
--- NOTE | 2024-01-29 13:05 | CM ---
Patient seen at bedside.
IA completed.
Dx: R BKA
Came from [facility], bed not on hold
PT/OT rec ACUTE REHAB - spoke with Greer at [facility]
PMR consult ordered
1 SH where he resides alone, with 3 steps to enter. Uses WC at baseline. Reports home is WC accessible.
PCP: Gene Banks
Pharmacy: [facility], [place]
PLAN: [facility], pending PMR consult
[2024-01-29 15:51] VITALS: BP 117/62
--- NOTE | 2024-01-29 16:00 | CON.MD ---
Documented by User: Janey Orr PA-C 01/29/24 16:42
Consultation - Medical
-
Referring Provider:�Speedy Marcus
Chief Complaint:�Right BKA
�
History of Present Illness:�73-year-old male with PMH of (CKD 3B, CAD, s/p bypass graft of aortocoronary, DM type II (most recently uncontrolled; A1c = 8.8), hypercholesterolemia, elevated hemidiaphragm, bilateral bundle branch block, HTN, right
bundle branch block, kidney stone, diabetic nephropathy associated with type 2 diabetes, amputation of toe, PAD) was previously hospitalized at for osteomyelitis of the right calcaneus, right heel dry gangrene. He had an I&D and resection of the
third toe on September 05, 2023 then further debridement on 09/13/2023 and TMA with closure on September 21, 2023. He had further debridement in 4 locations on the right foot on January 01, 2024 with completion of IV antibiotics.
On 01/26/2024, he opted to undergo right BKA with Dr. Caraballo versus continuing with efforts of preserving the Non-healing right lower extremity wounds
EK01/28/2024
SINUS TACHYCARDIA
LEFT AXIS DEVIATION
RIGHT BUNDLE BRANCH BLOCK
ABNORMAL ECG
WHEN COMPARED WITH ECG OF 26-JAN-2024 10:55,
CRITERIA FOR INFERIOR INFARCT ARE NO LONGER PRESENT
ST NOW DEPRESSED IN ANTERIOR LEADS
Confirmed by VINITA LARIOS MD ([id number]) on 01/28/2024 2:10:04 PM
Referred By: Sallie Melendez Confirmed By:VINITA LARIOS MD
Past Medical History:�CKD 3B, CAD, s/p bypass graft of aortocoronary, DM type II (most recently uncontrolled; A1c = 8.8), hypercholesterolemia, elevated hemidiaphragm, bilateral bundle branch block, HTN, right bundle branch block, kidney stone,
diabetic nephropathy associated with type 2 diabetes, amputation of toe, PAD,
Procedure History:�Right BKA (01/26/24 Dr. Caraballo), s/p triple bypass graft of aortocoronary, amputation of toes
Family History:�Lung cancer, Heart disease
�
Social History:�
Functional Level Premorbidly:�Independent with all activities, Was at [facility] for rehab x 1 week. using friends assist with groceries and transportation�
Functional Level Currently:�Bed mobility�supervision-min assist, , grooming�set up, toileting, lower extremity care�min assist,
�
Tobacco:�Denies�
Alcohol:�Denies�
Drug use:�Denies�
�
Lives with:�Alone
24-hour assistance available:�
Number of floors:�1
# steps to enter:�3
# steps to second floor:
Potential First floor set up:�yes
Driving:�yes
Occupation:�retired
�
�
Allergies:�
Allergy/AdvReac Type Severity Reaction Status Date / Time
No Known Allergies Allergy Verified 01/22/24 12:54
�
Review of Systems:�
Constitutional: (x) Normal _
Eye: (x) Normal _
Ear/Nose/Throat: (x) Normal _
Respiratory: (x) Normal _
Cardiovascular: (x) abNormal _HTN,PAD, dizziness
Gastrointestinal: (x) Normal _
Genitourinary: (x) abNormal _CKD, DM nephropathy
Musculoskeletal: (x) abnormal - Right BKA
Integumentary: (x) Normal _
Neurologic: (x) Normal _
Psychiatric: (x) Normal _
Endocrine: (x) Normal _
Hematologic/Lymphatic: (x) Normal _
Allergic/Immunologic: (x) Normal _
�
Medications:�
Active Current Visit Medication List
Category Date Time Status
Acetaminophen [Tylenol] Med 01/27/24 12:00 Active
650 mg PO Q4HWA
Amlodipine [Norvasc] Med 01/27/24 08:00 Active
2.5 mg PO DAILY
Aspirin Chewable [Low Strength Aspirin] Med 01/27/24 08:00 Active
81 mg PO DAILY
Atorvastatin [Lipitor] Med 01/27/24 08:00 Active
40 mg PO DAILY
Bisacodyl [Dulcolax] Med 01/26/24 16:48 Active
10 mg RECTAL DAILYPRN PRN
Cholecalciferol (Vitamin D3) [VITAMIN D3 ( Med 01/27/24 08:00 Active
cholecalciferol)]
25 mcg PO DAILY
Clopidogrel Bisulfate [Plavix] Med 01/27/24 08:00 Active
75 mg PO DAILY
Dextrose 50%-Water [Dextrose 50% Syringe] Med 01/26/24 17:29 Active
12.5 grams IV [id number] PRN
Docusate Sodium [Colace] Med 01/26/24 20:00 Active
100 mg PO BID
Flush (0.9% Sodium Chloride) [Flush (Nss)] Med 01/26/24 17:00 Active
See Dose Instructions IV PER PROTOCOL
Glucagon [GlucaGen] Med 01/26/24 17:29 Active
1 mg IM PRN PRN
HYDROmorphone [Dilaudid] Med 01/27/24 09:13 Active
0.5 mg IV Q4HPRN PRN
Heparin Med 01/26/24 20:00 Active
5,000 units SC Q12
Insulin Aspart Corrective Mod [Novolog Flexpen-Moderate Med 01/27/24 07:30 Active
Resistance]
See Protocol SC AC
Insulin Aspart Pen [Novolog Flexpen] Med 01/27/24 07:30 Active
6 units SC AC
Insulin Glargine Lantus [Lantus] 10 units Med 01/26/24 22:00 Active
Subcutaneous Insulin Syringe [Syringe-Insulin] 0 unit
SC HS
Magnesium Hydroxide [Milk of Magnesia] Med 01/26/24 16:53 Active
30 ml PO DAILYPRN PRN
Metoprolol Xl [Toprol Xl] Med 01/27/24 08:00 Active
50 mg PO DAILY
Oxycodone [Roxicodone] Med 01/27/24 09:13 Active
10 mg PO Q4HPRN PRN
Oxycodone [Roxicodone] Med 01/27/24 09:13 Active
5 mg PO Q4HPRN PRN
Oxycodone/Acetaminophen [Percocet 5/325] Med 01/26/24 23:37 Active
2 tablet PO Q4HPRN PRN
Tamsulosin [Flomax] Med 01/29/24 09:00 Active
0.4 mg PO DAILY
�
Vitals:�
Temp Pulse Resp BP Pulse Ox
98.8 F 96 16 128/65 96
01/29/24 07:00 01/29/24 07:00 01/29/24 07:00 01/29/24 07:00 01/29/24 07:00
Height 6 ft 3 in
Actual Weight 83.518 kg
Body Mass Index (BMI) 23.0
�
Physical Exam:�
General Appearance/Observation: Well-developed, well-nourished individual in no apparent distress.�
Pain/Comfort Assessment: residual limb pain
Mood/Affect: Appropriate�
�
Integumentary/Operative Site:�Right residual limb, upper thigh with large ecchymosis
�� Pressure Ulcer Evaluation: absent over left heel.�small callous underneath 3rd toe
��
�� Other Type of Wound: absent�
��
�
Eyes: Conjunctiva/Lids: normal���� Pupils: pupils equal round and reactive to light and Accommodation�
Ears/Nose/Throat: oral mucosa moist,� throat clear.������������ Lips/Teeth/Gums: poor dentition�
Neck: No muscle spasm or tenderness�
Cardiovascular: Heart: regular, no murmur�
Pulses: dorsalis pedis 1+ left
Respiratory: Respiratory Effort/Chest Expansion: normal������� Auscultation: Clear to auscultation bilaterally�
Gastrointestinal: abdomen not tender, no distension, normal abdominal bowel sounds
Genitourinary: No Caraballo�
Extremities:�Edema: right residual limb with rosalba wrap�Cyanosis: None�Trophic�changes: None
�
Neurology Exam:
Orientation: Alert, Oriented to self, Time, Place�
Memory: Intact for immediate medical concerns
Comprehension: Intact
Two step command: Intact
Naming: Intact
Cranial Nerves:
�� CNII:�Pupillary light reflex: Intact����Visual Field: Intact
�� CN III, IV, : Extraocular muscles: Intact, slight ptosis on the left�
�� CN V:�Facial Sensation�at�Forehead: Intact,�Maxilla: Intact,�Mandible: Intact
�� CN VII:�Facial movement: Symmetric
�� CN VIII:�Hearing: Normal
�� CN IX/X:�Speech & swallow: Normal,�Position of Uvula: Midline
�� CN XI:�Shoulder shrug: Symmetric
�� CN XII:�Tongue protrusion: deviated to the right
Sensory:
�� Light touch: Intact in bilateral upper and lower extremities
��
�
Reflexes:
�� Biceps: 2+ bilaterally
�� Brachioradialis: 1+ bilaterally
�� Triceps: 2+ bilaterally
�� Patellar: 2+ bilaterally
�� Achilles: Absent left
�� Babinski: no response on left
�� Clonus: None
�� Anneliese: Negative bilaterally�
Cerebellar: Dysmetria/Ataxia: None�
Musculoskeletal:
Motor: (Manual muscle scale 0-5)�
Muscle SA EF WE EE FF FA HF KE DF EHL PF
Right� 5 5 5 5 5 5 4 3+ - - -
Left 5 5 5 5 5 5 5 5 5 5 5
�
Tone: Normal in all extremities�
Range of Motion: Passively within normal limits in all extremities, diminished extension of right knee�
�
Lab Results
Labs
WBC 7.3 10^3/uL (4.8-10.8) 01/29/24 05:42
RBC 3.20 10^6/uL (4.70-6.10) L 01/29/24 05:42
Hgb 8.8 g/dL (13.0-18.0) L 01/29/24 05:42
Hct 27.2 % (39.0-52.0) L 01/29/24 05:42
MCV 85.0 fL (80.0-94.0) 01/29/24 05:42
MCH 27.5 pg (27.0-31.0) 01/29/24 05:42
MCHC 32.4 g/dL (33.0-37.0) L 01/29/24 05:42
RDW 15.9 % (11.5-14.5) H 01/29/24 05:42
Plt Count 197 10^3/uL (130-400) 01/29/24 05:42
MPV 9.3 fL (7.4-10.4) 01/29/24 05:42
CBC Comment Cancelled 01/25/24 14:33
PT 15.7 Sec (11.4-14.6) H 01/27/24 05:49
INR 1.22 01/27/24 05:49
APTT 32.7 Sec (23.4-35.0) 01/27/24 05:49
Sodium 136 mmol/L (135-145) 01/29/24 05:42
Potassium 4.1 mmol/L (3.5-5.1) 01/29/24 05:42
Chloride 105 mmol/L (98-107) 01/29/24 05:42
Carbon Dioxide 23 mmol/L (22-30) 01/29/24 05:42
BUN 29 mg/dl (9-20) H 01/29/24 05:42
Creatinine 1.6 mg/dL (0.7-1.3) H 01/29/24 05:42
Estimated Creat Clear 49 ml/min 01/29/24 05:42
eGFR 45.50 01/29/24 05:42
Glucose 120 mg/dl (70-99) H 01/29/24 05:42
Calcium 7.9 mg/dl (8.4-10.2) L 01/29/24 05:42
Troponin I < 0.012 ng/ml 01/27/24 14:58
POC Glucose 197 mg/dl (70-99) H 01/29/24 12:21
�
Diagnostic Results:�as per HPI�
�
Assessment: 73-year-old male with PMH of (CKD 3B, CAD, s/p bypass graft of aortocoronary, DM type II (most recently uncontrolled; A1c = 8.8), hypercholesterolemia, elevated hemidiaphragm, bilateral bundle branch block, HTN, right bundle branch
block, kidney stone, diabetic nephropathy associated with type 2 diabetes, amputation of toe, PAD) s/p right BKA on 01/[address] Valenzuela.
�
Plan�
�PT/OT to increase independence with ADLs, improve balance, coordination, endurance, strength, mobility, community reintegration, decreased burden of care on others and family education.�
�
Transtibial Amputation: Monitor incision, edema control with ROSALBA wrap, pain control, desensitization, Phantom limb pain education, maintain full ROM at hip and knee.�
HTN: Amlodipine 2.5 mg daily, Metoprolol
HLD: Atorvastatin 40 mg dailyCoronary artery disease�: Aspirin, statin, beta-mary�
h/o CABG x 3: Aspirin 81mg, statin, Plavix, metoprolol succinate 50 mg daily.�
CKD/Diabetic Nephropathy: Vit D
DM II: Accu-Cheks, insulin sliding scale, metformin, aspart, lantus.�
Anemia: Likely multifactorial, post-op.� Hgb 8.8. Was 11.2 pre-op. Continue to monitor.�
Psych: Psychology consult.� Monitor mood, adjust medications as needed.�
Skin: monitor for pressure sores/rashes/lesions.�
Pain: acetaminophen or oxycodone as needed, 5mg q 4 hours prn, or Percocet 5/325mg 2 tbs q 4 hours prn, hydromorphone 0.5 IV every 4 as neededBowel: Colace and Senna, PRN bisacodyl.�
Bladder/BPH: Time void, PVRs, PRN straight cath.� Tamsulosin 0.4 mg daily
GI Prophylaxis: Pantoprazole�recommanded.
DVT Prophylaxis: Heparin 5000 unit SC every 12
Pulmonary: Incentive spirometry�
Safety: Continue to reinforce assistance with all transfers.�
Code Status:� Full code
Dispo�(date/plan/equipment needs): Home with family care.� Social history reviewed.�
�
Functional and Medical Goals:�Modified Independent with ADL�s, ambulation, transfers�
�
�
Discharge Destination:�Acute inpatient rehabilitation
�
Summary of recommendations: Patient status post right BKA would benefit from acute inpatient rehabilitation for PT/OT to increase independence with ADLs, improve balance, coordination, endurance, strength, mobility, community reintegration,
decreased burden of care on others and family education.�
Transtibial Amputation/Ambulatory Dysfunction: Monitor incision, edema control with ROSALBA wrap, pain control, desensitization, Phantom limb pain education, maintain full ROM at hip and knee.�
Skin: monitor for pressure sores/rashes/lesions.�
Pain: acetaminophen or oxycodone or Percocet as needed. Pain must be controlled on PO medication for 24 hours before transfer. hydromorphone 0.5 IV every 4 as needed to be dced
Bladder/BPH: Time void, PVRs, PRN straight cath.� Tamsulosin 0.4 mg daily- recommend switching it to HS
DVT Prophylaxis: Heparin 5000 unit SC every 12
Pulmonary: Incentive spirometry�
Safety: Continue to reinforce assistance with all transfers.�
�
Thank you for allowing me to care for your patient. Please contact me with any questions or concerns.

Documented by User: Jony Mcleod MD 01/29/24 21:58
Consultation - Medical
-
Referring Provider:�Dr. Speedy Caraballo
Chief Complaint:�Right BKA
�
History of Present Illness:�73-year-old male with PMH of (CKD 3B, CAD, s/p bypass graft of aortocoronary, DM type II (most recently uncontrolled; A1c = 8.8), hypercholesterolemia, elevated hemidiaphragm, bilateral bundle branch block, HTN, right
bundle branch block, kidney stone, diabetic nephropathy associated with type 2 diabetes, amputation of toe, PAD) was previously hospitalized at for osteomyelitis of the right calcaneus, right heel dry gangrene. He had an I&D and resection of the
third toe on September 05, 2023 then further debridement on 09/13/2023 and TMA with closure on September 21, 2023. He had further debridement in 4 locations on the right foot on January 01, 2024 with completion of IV antibiotics.
On 01/26/2024, he opted to undergo right BKA with Dr. Caraballo versus continuing with efforts of preserving the Non-healing right lower extremity wounds. Has some mild pain, no phantom pain or sensation.
Past Medical History:�CKD 3B, CAD, s/p bypass graft of aortocoronary, DM type II (most recently uncontrolled; A1c = 8.8), hypercholesterolemia, elevated hemidiaphragm, bilateral bundle branch block, HTN, right bundle branch block, kidney stone,
diabetic nephropathy associated with type 2 diabetes, amputation of toe, PAD,
Procedure History:�Right BKA (01/26/24 Dr. Caraballo), s/p triple bypass graft of aortocoronary, amputation of toes
Family History:�Lung cancer, Heart disease
�
Social History:�
Functional Level Premorbidly:�Independent with all activities, Was at [facility] for rehab x 1 week. using friends assist with groceries and transportation�
Functional Level Currently:�Bed mobility�supervision-min assist, , grooming�set up, toileting, lower extremity care�min assist,
�
Tobacco:�Denies�
Alcohol:�Denies�
Drug use:�Denies�
�
Lives with:�Alone
24-hour assistance available:�No, does have help getting in and out of house.
Number of floors:�1
# steps to enter:�3
Driving:�yes
Occupation:�retired
�
�
Allergies:�
Allergy/AdvReac Type Severity Reaction Status Date / Time
No Known Allergies Allergy Verified 01/22/24 12:54
�
Review of Systems:�
Constitutional: (x) Normal _
Eye: (x) Normal _
Ear/Nose/Throat: (x) Normal _
Respiratory: (x) Normal _
Cardiovascular: (x) abNormal _HTN,PAD, dizziness
Gastrointestinal: (x) Normal _
Genitourinary: (x) abNormal _CKD, DM nephropathy
Musculoskeletal: (x) abnormal - Right BKA
Integumentary: (x) Normal _
Neurologic: (x) Normal _
Psychiatric: (x) Normal _
Endocrine: (x) Normal _
Hematologic/Lymphatic: (x) Normal _
Allergic/Immunologic: (x) Normal _
�
Medications:�
Active Current Visit Medication List
Category Date Time Status
Acetaminophen [Tylenol] Med 01/27/24 12:00 Active
650 mg PO Q4HWA
Amlodipine [Norvasc] Med 01/27/24 08:00 Active
2.5 mg PO DAILY
Aspirin Chewable [Low Strength Aspirin] Med 01/27/24 08:00 Active
81 mg PO DAILY
Atorvastatin [Lipitor] Med 01/27/24 08:00 Active
40 mg PO DAILY
Bisacodyl [Dulcolax] Med 01/26/24 16:48 Active
10 mg RECTAL DAILYPRN PRN
Cholecalciferol (Vitamin D3) [VITAMIN D3 ( Med 01/27/24 08:00 Active
cholecalciferol)]
25 mcg PO DAILY
Clopidogrel Bisulfate [Plavix] Med 01/27/24 08:00 Active
75 mg PO DAILY
Dextrose 50%-Water [Dextrose 50% Syringe] Med 01/26/24 17:29 Active
12.5 grams IV [id number] PRN
Docusate Sodium [Colace] Med 01/26/24 20:00 Active
100 mg PO BID
Flush (0.9% Sodium Chloride) [Flush (Nss)] Med 01/26/24 17:00 Active
See Dose Instructions IV PER PROTOCOL
Glucagon [GlucaGen] Med 01/26/24 17:29 Active
1 mg IM PRN PRN
HYDROmorphone [Dilaudid] Med 01/27/24 09:13 Active
0.5 mg IV Q4HPRN PRN
Heparin Med 01/26/24 20:00 Active
5,000 units SC Q12
Insulin Aspart Corrective Mod [Novolog Flexpen-Moderate Med 01/27/24 07:30 Active
Resistance]
See Protocol SC AC
Insulin Aspart Pen [Novolog Flexpen] Med 01/27/24 07:30 Active
6 units SC AC
Insulin Glargine Lantus [Lantus] 10 units Med 01/26/24 22:00 Active
Subcutaneous Insulin Syringe [Syringe-Insulin] 0 unit
SC HS
Magnesium Hydroxide [Milk of Magnesia] Med 01/26/24 16:53 Active
30 ml PO DAILYPRN PRN
Metoprolol Xl [Toprol Xl] Med 01/27/24 08:00 Active
50 mg PO DAILY
Oxycodone [Roxicodone] Med 01/27/24 09:13 Active
10 mg PO Q4HPRN PRN
Oxycodone [Roxicodone] Med 01/27/24 09:13 Active
5 mg PO Q4HPRN PRN
Oxycodone/Acetaminophen [Percocet 5/325] Med 01/26/24 23:37 Active
2 tablet PO Q4HPRN PRN
Tamsulosin [Flomax] Med 01/29/24 09:00 Active
0.4 mg PO DAILY
�
Vitals:�
Temp Pulse Resp BP Pulse Ox
98.8 F 96 16 128/65 96
01/29/24 07:00 01/29/24 07:00 01/29/24 07:00 01/29/24 07:00 01/29/24 07:00
Height 6 ft 3 in
Actual Weight 83.518 kg
Body Mass Index (BMI) 23.0
�
Physical Exam:�
General Appearance/Observation: Well-developed, well-nourished male in no apparent distress.�
Pain/Comfort Assessment: residual limb pain
Mood/Affect: Appropriate�
�
Integumentary/Operative Site:�Right residual limb, upper thigh with large ecchymosis
�� Pressure Ulcer Evaluation: absent over left heel.�small callous underneath 3rd toe, onychomycosis
��
�
Eyes: Conjunctiva/Lids: normal���� Pupils: pupils equal round and reactive to light and Accommodation�
Ears/Nose/Throat: oral mucosa moist,� throat clear.������������ Lips/Teeth/Gums: poor dentition�
Neck: No muscle spasm or tenderness�
Cardiovascular: Heart: regular, no murmur�
Pulses: dorsalis pedis trace palpable on left
Respiratory: Respiratory Effort/Chest Expansion: normal������� Auscultation: Clear to auscultation bilaterally�
Gastrointestinal: abdomen not tender, no distension, normal abdominal bowel sounds
Genitourinary: No Caraballo�
Extremities:�Edema: right residual limb with rosalba wrap�Cyanosis: None�Trophic�changes: None
�
Neurology Exam:
Orientation: Alert, Oriented to self, Time, Place�
Memory: Intact for immediate medical concerns
Comprehension: Intact
Two step command: Intact
Cranial Nerves:
�� CNII:�Pupillary light reflex: Intact����Visual Field: Intact
�� CN III, IV, : Extraocular muscles: Intact, slight ptosis on the left�
�� CN V:�Facial Sensation�at�Forehead: Intact,�Maxilla: Intact,�Mandible: Intact
�� CN VII:�Facial movement: Symmetric
�� CN VIII:�Hearing: Normal
�� CN IX/X:�Speech & swallow: Normal,�Position of Uvula: Midline
�� CN XI:�Shoulder shrug: Symmetric
�� CN XII:�Tongue protrusion: deviated to the right
Sensory:
�� Light touch: Intact in bilateral upper and lower extremities
��
�
Reflexes:
�� Biceps: 2+ bilaterally
�� Brachioradialis: 1+ bilaterally
�� Triceps: 2+ bilaterally
�� Patellar: 2+ bilaterally
�� Achilles: Absent left
�� Babinski: no response on left
�� Clonus: None
�� Anneliese: Negative bilaterally�
Cerebellar: Dysmetria/Ataxia: None�
Musculoskeletal: Motor: (Manual muscle scale 0-5)�
Muscle SA EF WE EE FF FA HF KE DF EHL PF
Right� 5 5 5 5 5 4 3+ - - -
Left 5 5 5 5 5 5 5 5 4 5
�
Tone: Normal in all extremities�
Range of Motion: Passively within normal limits in all extremities, diminished extension of right knee�
�
Lab Results
Labs
WBC 7.3 10^3/uL (4.8-10.8) 01/29/24 05:42
RBC 3.20 10^6/uL (4.70-6.10) L 01/29/24 05:42
Hgb 8.8 g/dL (13.0-18.0) L 01/29/24 05:42
Hct 27.2 % (39.0-52.0) L 01/29/24 05:42
MCV 85.0 fL (80.0-94.0) 01/29/24 05:42
MCH 27.5 pg (27.0-31.0) 01/29/24 05:42
MCHC 32.4 g/dL (33.0-37.0) L 01/29/24 05:42
RDW 15.9 % (11.5-14.5) H 01/29/24 05:42
Plt Count 197 10^3/uL (130-400) 01/29/24 05:42
MPV 9.3 fL (7.4-10.4) 01/29/24 05:42
CBC Comment Cancelled 01/25/24 14:33
PT 15.7 Sec (11.4-14.6) H 01/27/24 05:49
INR 1.22 01/27/24 05:49
APTT 32.7 Sec (23.4-35.0) 01/27/24 05:49
Sodium 136 mmol/L (135-145) 01/29/24 05:42
Potassium 4.1 mmol/L (3.5-5.1) 01/29/24 05:42
Chloride 105 mmol/L (98-107) 01/29/24 05:42
Carbon Dioxide 23 mmol/L (22-30) 01/29/24 05:42
BUN 29 mg/dl (9-20) H 01/29/24 05:42
Creatinine 1.6 mg/dL (0.7-1.3) H 01/29/24 05:42
Estimated Creat Clear 49 ml/min 01/29/24 05:42
eGFR 45.50 01/29/24 05:42
Glucose 120 mg/dl (70-99) H 01/29/24 05:42
Calcium 7.9 mg/dl (8.4-10.2) L 01/29/24 05:42
Troponin I < 0.012 ng/ml 01/27/24 14:58
POC Glucose 197 mg/dl (70-99) H 01/29/24 12:21
�
Diagnostic Results:�as per HPI�
EK01/28/2024
SINUS TACHYCARDIA
LEFT AXIS DEVIATION
RIGHT BUNDLE BRANCH BLOCK
ABNORMAL ECG
WHEN COMPARED WITH ECG OF 26-JAN-2024 10:55,
CRITERIA FOR INFERIOR INFARCT ARE NO LONGER PRESENT
ST NOW DEPRESSED IN ANTERIOR LEADS
Confirmed by VINITA LARIOS MD ([id number]) on 01/28/2024 2:10:04 PM
Referred By: Sallie Melendez Confirmed By:VINITA LARIOS MD
�
Assessment:
73-year-old male with PMH of (CKD 3B, CAD, s/p bypass graft of aortocoronary, DM type II (most recently uncontrolled; A1c = 8.8), hypercholesterolemia, elevated hemidiaphragm, bilateral bundle branch block, HTN, right bundle branch block, kidney
stone, diabetic nephropathy associated with type 2 diabetes, amputation of toe, PAD) s/p right BKA on 01/[address] Valenzuela.
�
Plan�
PT/OT to increase independence with ADLs, improve balance, coordination, endurance, strength, mobility, community reintegration, decreased burden of care on others and family education.�
�
Right Transtibial Amputation: Monitor incision, edema control with ROSALBA wrap, pain control, desensitization, Phantom limb pain education, maintain full ROM at hip and knee.�
HTN: Amlodipine 2.5 mg daily, Metoprolol
HLD: Atorvastatin 40 mg daily
Coronary artery disease�PMH CABG x 3: Aspirin, statin, beta-mary�
PAD: Aspirin 81mg, statin, Plavix.�
CKD/Diabetic Nephropathy: Vit D
Uncontrolled DM II: Accu-Cheks, insulin sliding scale, aspart.�
Anemia: Likely multifactorial, post-op.� Hgb 8.8. Was 11.2 pre-op. Continue to monitor.�
Psych: Psychology consult.� Monitor mood, adjust medications as needed.�
Skin: monitor for pressure sores/rashes/lesions.�
Pain: acetaminophen or oxycodone as needed, 5mg q 4 hours prn, or Percocet 5/325mg 2 tbs q 4 hours prn, hydromorphone 0.5 IV every 4 as needed
Bowel: Colace and Senna, PRN bisacodyl.�
Bladder/BPH: Time void, PVRs, PRN straight cath.� Tamsulosin 0.4 mg daily
GI Prophylaxis: Pantoprazole�recommended.
DVT Prophylaxis: Heparin 5000 unit SC every 12
Pulmonary: Incentive spirometry�
Safety: Continue to reinforce assistance with all transfers.�
Code Status:� Full code
Dispo�(date/plan/equipment needs): Home with family care.� Social history reviewed.�
Functional and Medical Goals:�Modified Independent with ADL�s, ambulation, transfers�
Discharge Destination:� Patient status post right BKA would benefit from acute inpatient rehabilitation for PT/OT to increase independence with ADLs, improve balance, coordination, endurance, strength, mobility, community reintegration, decreased
burden of care on others and family education.�
Attending Statement:
I saw and examined the patient today. Reviewed care plan with patient, therapy, nursing, and physician assistant track coach. I agree with the above subjective and physical exam, and plan as documented by FELICITY Orr with adjustments made as necessary. A
total of 60 minutes were spent with the patient preparing for the evaluation, obtaining history, performing examination and evaluation, counseling, data review, case management, care coordination, stock order lister, and EMR documentation.
�
Summary of recommendations: Acute inpatient rehabilitation
Transtibial Amputation/Ambulatory Dysfunction: Monitor incision, edema control with ROSALBA wrap, pain control, desensitization, maintain full ROM at hip and knee.�
Pain: acetaminophen or oxycodone or Percocet as needed. Pain must be controlled on PO medication for 24 hours before transfer. hydromorphone 0.5 IV every 4 as needed to be dced
Bladder/BPH: Time void, PVRs, PRN straight cath.� Tamsulosin 0.4 mg daily- recommend switching it to HS
DVT Prophylaxis: Heparin 5000 unit SC every 12
Pulmonary: Incentive spirometry�
�
Thank you for allowing me to care for your patient. Please contact me with any questions or concerns.
[2024-01-29 17:20] LABS: Glucose - Point of Care 216 mg/dl (70-99)
[2024-01-29] MEDS: NOVOLOG FLEXPEN-MODERATE RESISTANCE 3 UNITS SC (17:26)
[2024-01-29 21:22] LABS: Glucose - Point of Care 234 mg/dl (70-99)
[2024-01-29] MEDS: LANTUS 0.1 UNITS SC (21:26)
[2024-01-29 23:08] VITALS: BP 114/59
[2024-01-30] MEDS: TYLENOL 650 MG PO ×2 (03:36→08:29)
[2024-01-30 05:03] LABS: Hematocrit 26.8 % (39.0-52.0); Hemoglobin 8.8 g/dL (13.0-18.0); Mean Corp Hgb Conc. 32.8 g/dL (33.0-37.0); Mean Corpuscular Hgb 27.8 pg (27.0-31.0); Mean Corpuscular Volume 84.5 fL (80.0-94.0); Mean Platelet Volume 9.1 fL (7.4-10.4); Platelet Count 222 10^3/uL (130-400); Red Blood Cell Count 3.17 10^6/uL (4.70-6.10); Red Cell Dist. Width 15.8 % (11.5-14.5); White Blood Cell Count 5.9 10^3/uL (4.8-10.8)
[2024-01-30 05:28] LABS: Blood Urea Nitrogen 27 mg/dl (9-20); Calcium 8.1 mg/dl (8.4-10.2); Carbon Dioxide 25 mmol/L (22-30); Chloride 106 mmol/L (98-107); Estimated Creatinine Clearance 56 ml/min; Glucose 149 mg/dl (70-99); Potassium 4.2 mmol/L (3.5-5.1); Sodium 138 mmol/L (135-145)
[2024-01-30 07:36] VITALS: BP 131/72
--- NOTE | 2024-01-30 07:46 | PN.CDI ---
CDI
- -
CDI:
Physician Documentation Request
Admit Date: 01/26/24 09:29
Dear Vascular,
Please review the following and provide your response in the progress notes.
Clinical Indicators:
- 01/28 Post Op Report EBL 250ml
- 01/28 Rehab consult 'Anemia: Likely multifactorial, post-op'
Laboratory Tests
01/26/24 01/27/24 01/27/24
10:53 05:49 14:58
Hgb 11.8 L 10.1 L 10.2 L
01/28/24 01/29/24 01/30/24
05:04 05:42 04:36
Hgb 9.5 L 8.8 L 8.8 L
Please clarify the appropriate diagnosis that supports the above lab abnormalities and additional evaluation, monitoring and/or treatment rendered:
Anemia, due to acute blood loss and hemodilution
Anemia due to hemodilution only
Clinically insignificant abnormal lab values
Other
Use of terms such as suspected, likely, concern for, or probable (associated with a specific diagnosis that is being evaluated, monitored, or treated as if it exists) are acceptable and can be coded in the inpatient setting, when documented at the
time of discharge.
Thank you,
Mel Jansen RN
CDI Specialist
Please use your independent medical judgment in providing your response.
--- NOTE | 2024-01-30 07:49 | PN.CDI ---
CDI
- -
CDI:
Physician Documentation Request
Admit Date: 01/26/24 09:29
Dear Vascular,
Please review the following and provide your response in the progress notes.
Clinical Indicators:
- 01/21 pre-admissions testing RN note 'EKG scanned,dated 12/03/19, showing prior history of bifascicular block'
- 12/03/19 EKG with RBBB with left axis bifascicular block
- 01/25 & 01/26 EKG with left axis deviation and right bundle branch block
- 01/25 Anesthesia note indicates bundle branch block
Please indicate in your progress notes if you are in agreement that the above diagnosis is valid for this patient:
____ - Bifascicular block is a valid diagnosis (Please include it in your progress notes)
____ - Bifascicular block is not a valid diagnosis for this patient
____ - Bifascicular block is not yet confirmed but remains a suspected condition
____ - Other
Use of terms such as suspected, likely, concern for, or probable are acceptable for a diagnosis that is being evaluated, monitored or treated as if it exists and can be coded in the inpatient setting, when documented at the time of discharge.
Thank you,
Mel Jansen RN
CDI Specialist
Please use your independent medical judgment in providing your response.
[2024-01-30 07:53] LABS: Glucose - Point of Care 154 mg/dl (70-99)
--- NOTE | 2024-01-30 08:04 | W.PN.VS ---
Today's Communication / Plan
-
Seen and assessed with Dr. Bosch
Assessment/Plan
-
Assessment: 73-year-old male POD #4 right BKA
Plan:
Continue Flomax
Excepted to [place], can DC today
Patient will transfer to [place] with bosch catheter in place, can void trial there. If patient requires reinsertion they will follow-up with urology outpatient.
Outpatient follow-up added to the chart
CDI: Bifascicular block per EKG
CDI: Acute on chronic anemia of chronic disease, CKD, monitor throughout stay, no need for treatment
Subjective Data
-
Date of Service: January 30, 2024
Patient seen at bedside this a.mEvin Bosch. Patient offers no complaints at this time. No events overnight. Bosch catheter intact
Objective Data
-
Vital Signs
Temp Pulse Resp BP Pulse Ox
98.2 F 87 12 131/72 96
01/30/24 07:36 01/30/24 07:36 01/30/24 07:36 01/30/24 07:36 01/30/24 07:36
Intake and Output
01/29/24 01/30/24 01/31/24
06:59 06:59 06:59
Intake Total 1440 / 1440 660 / 660
Output Total 1475 / 1475 1550 / 1550
Balance -35 / -35 -890 / -890
Intake:
Oral fluids 1200 / 1200 660 / 660
Amount of oral supplement(s) 240 / 240
consumed
Output:
Urine, Bosch 450 / 450
Urine, Voided 875 / 875 400 / 400
Straight cath output 600 / 600 700 / 700
Other:
Number of approximated MODERATE 1
amounts of urine
Lab Results
01/30/24 04:36
01/30/24 04:36
Calcium 8.1 mg/dl (8.4-10.2) L 01/30/24 04:36
Physical Exam
-
Awake alert oriented x 3, no apparent distress
No tachycardia
No dyspnea on room air
ABD flat, nontender, nondistended
Right BKA site clean dry and intact
[2024-01-30] MEDS: PLAVIX 75 MG PO (08:29)
[2024-01-30] MEDS: COLACE 100 MG PO (08:29)
[2024-01-30] MEDS: LOW STRENGTH ASPIRIN 81 MG PO (08:29)
[2024-01-30] MEDS: LIPITOR 40 MG PO (08:29)
[2024-01-30] MEDS: NORVASC 2.5 MG PO (08:29)
[2024-01-30] MEDS: FLOMAX 0.4 MG PO (08:29)
[2024-01-30] MEDS: TOPROL XL 50 MG PO (08:29)
[2024-01-30] MEDS: NOVOLOG FLEXPEN 6 UNITS SC ×2 (08:30→12:12)
[2024-01-30] MEDS: NOVOLOG FLEXPEN-MODERATE RESISTANCE 1 UNITS SC ×2 (08:30→12:13)
[2024-01-30] MEDS: HEPARIN 5000 UNITS SC (08:30)
[2024-01-30] MEDS: VITAMIN D3 (cholecalciferol) 25 MCG PO (08:30)
[2024-01-30 08:45] VITALS: BP 128/64; PULSE 65; O2SAT 98
--- NOTE | 2024-01-30 09:06 | CM ---
Patient PMR consult complete yesterday
Patient for [facility]
tt Erika Elder
Spoke with Greer from [facility] - bed available today.
OT adebayo completed today
IMM explained & signed - in chart
PLAN: [facility]
Report #: [phone]
Fax #: [phone]
--- NOTE | 2024-01-30 10:45 | W.DS.TRANS ---
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
-
Discharge Instructions:
Discharge Diagnosis/Procedures Right lower extremity amputation below the knee
Diet As tolerated
Activity No strenuous activity
Driving Restrictions Not until seen by your Dr
Bathing Restrictions OK to Shower
Instructions:
Stand-Alone Forms: DC Instr - Vascular OR
Changes to Home Medications: Yes
Discharge Medications:
DC Medications w/original date entered in [facility]
atorvastatin 40 mg tablet 40 mg PO DAILY High Cholesterol 09/04/23
cholecalciferol (vitamin D3) 25 mcg (1,000 unit) tablet (Vitamin D3) 25 mcg PO DAILY Supplement 10/09/23
insulin glargine 100 unit/mL (3 mL) subcutaneous pen (Lantus Solostar U-100 Insulin) 10 unit SC HS Diabetes 10/09/23
amlodipine 2.5 mg tablet 2.5 mg PO DAILY #30 tabs 11/14/23
aspirin 81 mg chewable tablet 81 mg PO DAILY Blood Clot Prevention/Tx 11/14/23
clopidogrel 75 mg tablet 75 mg PO DAILY #90 tabs 11/14/23
metoprolol succinate 50 mg tablet,extended release 24 hr 50 mg PO DAILY Blood Pressure 01/01/24
insulin aspart U-100 100 unit/mL (3 mL) subcutaneous pen 6 unit (0.06 mL) SC AC #15 mL 01/06/24
insulin aspart U-100 100 unit/mL (3 mL) subcutaneous pen (Novolog FlexPen U-100 Insulin aspart) 1 sliding scale dose SC AC #15 mL 01/08/24
Hypogl 1 applic PO PRN PRN BS <70, unable to swallow 01/22/24
acetaminophen 500 mg tablet 1,000 mg PO Q8H PRN Pain 01/22/24
bisacodyl 10 mg rectal suppository (Dulcolax (bisacodyl)) 10 mg RI DAILY PRN if no BM 8hr after MOM 01/22/24
lorazepam 0.5 mg tablet 0.5 mg PO HS PRN insomnia 01/22/24
magnesium hydroxide 400 mg/5 mL oral suspension (Milk of Magnesia) 30 ml PO DAILY PRN no BM x 2 days 01/22/24
sodium phosphates 19 gram-7 gram/118 mL enema (Fleet Enema) 118 ml RI ONCE PRN if no BM 8hr after suppository 01/22/24
oxycodone 5 mg tablet 5 mg PO Q4HPRN PRN mild pain #10 tabs 01/30/24
tamsulosin 0.4 mg capsule 0.4 mg PO DAILY #90 caps 01/30/24
Home Medication Changes
Stopped all home antibiotics
Added oxycodone for pain management
Added Flomax
Pending Results: No
[2024-01-30 12:10] LABS: Glucose - Point of Care 235 mg/dl (70-99)
[2024-01-30 12:12] VITALS: BP 107/59
[2024-01-30] MEDS: TYLENOL PO (12:14)
== END 2024-01-30 14:02 | DRG 240 ==
LOC: 2 NORTH 09:29
PROVIDERS: Nurse Practitioner; Surgery; ADMITTING PHYSICIAN Surgery Vascular Surgery; CONSULT PHYSICIAN Physical Medicine & Rehabilitation; FAMILY PHYSICIAN Family Medicine
PROC: 0Y6H0Z2 Detachment at Right Lower Leg, Mid, Open Approach (ICD-10-PCS; 2024-01-26)
DX: I70.234 Atherosclerosis of native arteries of right leg with ulceration of heel and midfoot (principal); D62 Acute posthemorrhagic anemia; I45.2 Bifascicular block; M86.8X7 Other osteomyelitis, ankle and foot; L97.419 Non-pressure chronic ulcer of right heel and midfoot with unspecified severity; B96.5 Pseudomonas (aeruginosa) (mallei) (pseudomallei) as the cause of diseases classified elsewhere; I12.9 Hypertensive chronic kidney disease with stage 1 through stage 4 chronic kidney disease, or unspecified chronic kidney disease; N18.32 Chronic kidney disease, stage 3b; E11.22 Type 2 diabetes mellitus with diabetic chronic kidney disease; I25.10 Atherosclerotic heart disease of native coronary artery without angina pectoris; Z95.1 Presence of aortocoronary bypass graft
CPT/HCPCS: 88307; 88311; 27880; 80048; 82962; 84484; 85027; 85610; 85730; 93005; 97163; 97167; 97530; 97535

== ENCOUNTER 2024-05-12 13:19 | Inpatient (IN) | payer MEDICARE, OTHER, SELFPAY ==
[2024-05-12] VITALS (47 sets, daily range): BP systolic 67–137; BP diastolic 30–80; BMI 23.1
--- NOTE | 2024-05-12 11:17 | ED.GENMED ---
History of Present Illness
General
Chief Complaint: Blood Pressure Problem
Source: patient and ambulance crew
Exam Limitations: none
Time Seen by Provider: 05/12/24 11:09
Nursing documentation reviewed up to this point in time: agreed with
History of Present Illness
History of Present Illness:
74 yo male presents to the emergency department due right rib pain. EMS noted tachycardia, hypotension and glucose 477. He feels generally weak.
Past History
Past History
ED Past Medical History: CAD, HTN, Hypercholesterolemia, NIDDM and Other (Kidney stones, appendectomy, DM)
ED Past Surgical History: Cardiac
Social History
Tobacco: Non-smoker
Alcohol: Occasional
Drug: None
Living: alone
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
Family History
Family History: Other (Brother with kidney stones)
Review of Systems
Review of Systems
Allergies reviewed?: Yes
All Other Systems: Not applicable
Constitutional: Reports fatigue
EENT: Reports no symptoms
Respiratory: Reports no symptoms
Cardiac: Reports chest pain
ABD/GI: Reports no symptoms
: Reports no symptoms
Musculoskeletal: Reports no symptoms
Skin: Reports no symptoms
Neurological: Reports no symptoms
Endocrine: Reports no symptoms
Hematologic/Lymphatic: Reports no symptoms
Psychiatric: Reports no symptoms
Phy Exam
Physical Exam
Physical Exam:
Physical Exam
General: Appears uncomfortable, afebrile, hypotensive
Neck: supple. no meningeal signs. normal posterior pharynx
Heart: s1/s2 tachycardia, no murmur. equal radial
pulses.
HEENT: Pupils equal round reactive to light, EOMI
Lungs: no acute respiratory distress. clear bilaterally
Abdomen: normal bowel sounds. not tender. no CVAT
Neuro: alert and oriented. no focal neurological deficits cranial nerves II through XII intact
Skin: no rash
Psychiatric: well kept. interactive and cooperative
Extremities: no edema. no calf tenderness. negative homans. good distal pulses, right below-knee amputation
Course
Orders/Labs/Results
Orders:
Orders
05/12/24 Breakfast
1800 calorie (15 carb) Diabetic
05/12/24 11:07
EKG [Electrocardiogram (*1)] Urgent
Reason for Study: Tachycardia
EKG- Treatment ONCE
05/12/24 11:16
IV Insert/Care/Rem.- Treatment PRN
Pulse Ox/cont/shift [RESP] Stat
Quantity: 1
05/12/24 11:17
Cardiac Monitoring- Treatment ONCE
0.9% Sodium Chloride 1000 ml [Nss] 1,000 ml IV BOLUS
CR Chest Portable - 1 View Urgent
Comment:
Reason For Exam: right rib pain
Reason Study Needs to be Portable: Patient Unstable
05/12/24 11:18
B-Hydroxybutyrate Urgent
Comment: ADDED
Complete Blood Count/With Diff Urgent
Comprehensive Metabolic Panel Urgent
Magnesium Urgent
PTT Urgent
Prothrombin Time Urgent
Troponin I Urgent
05/12/24 11:40
Venous Blood Gas Urgent
%Oxygen/Room Air: 99
05/12/24 11:51
Lactic Acid Q4H
Comment: CANCEL 2nd LACTIC ACID IF 1st LACTIC ACID IS LESS THAN 2
Blood Culture Q30M
TRE Source: Blood/Venous
Specimen Description:
Blood Culture Q30M
TRE Source: Blood/Venous
Specimen Description:
05/12/24 11:56
Straight cath- Treatment ONCE
05/12/24 11:58
0.9% Sodium Chloride 1000 ml [Nss] 1,000 ml IV BOLUS
05/12/24 12:24
Add On- LAB Urgent
Tests Added?: b hydroxybutyrate
Reg Insulin 100 Units/100 ml [Novolin R Insulin Infusion] 100 units in 100 ml IV NOW
05/12/24 12:25
Bedside Glucose- Treatment Q1H
05/12/24 12:45
Reg Insulin 100 Units/100 ml [Novolin R Insulin Infusion] 100 units in 100 ml IV NOW
05/12/24 12:57
Admit/Transfer Patient As Directed
Co-Sign Provider:
Level of Care: Inpatient admission
Assign to:: ICU
Physician / Group: [email or web address]
Diagnosis: DKA, rapid AF, [place], elevated TPNI , Hypotension
Reason for Hospitalization: DKA, rapid AF, R[place], elevated TPNI , Hypotension
Expected length of stay greater than two midnights?: Yes
ELOS- Estimated Length of Stay in days: 4
I certify the patient meets the requirements for IP care: Yes
05/12/24 13:00
Code Status As Directed
Resuscitation Status: Full Code
05/12/24 13:02
Basic Metabolic Panel Q2H
Urinalysis Reflex To Culture Urgent
Date Specimen was Collected: 05/12/24
Time Specimen was Collected: 12:20
Urine Microscopic Reflex Cult Urgent
Urine Culture Urgent
TRE Source: U
Specimen Description:
Date Specimen was Collected: 05/12/24
Time Specimen was Collected: 12:20
05/12/24 14:21
Basic Metabolic Panel Q2H
05/12/24 15:24
0.9% Sodium Chloride 1000 ml [Nss] 1,000 ml IV 250 mls/hr
Metoprolol [Lopressor] 5 mg IV Q4HPRN PRN
Reg Insulin 100 Units/100 ml [Novolin R Insulin Infusion] 100 units in 100 ml IV PER PROTOCOL
Initial dose in units/hr, then titrate:: 6
05/12/24 15:24
CARDIOLOGY CONSULT Urgent
Consulting Provider: Star Nina
Was physician already notified: Yes
Reason for consult: Fast AF, Hypotension, DKA
Diabetes Management by Nurse Practitioner Routine
Consulting Provider: Pamella Jansen
Was provider already notified?: No
Reason for Consult: Insulin Management
Activity As Directed
Activity Level: With Assistance
Bedside Glucose Monitoring As Directed
Frequency: Q1H
Intake/ Output As Directed
Frequency: Per unit guidelines
Notify MD As Directed
Notify physician if: Nurse to contact provider when glucose reaches 250 to obtain orders for D5 0.45 NaCl
Vital Signs As Directed
Frequency: Per unit guidelines
Weight As Directed
Frequency: Daily
DX Deep Vein Thrombosis Video Routine
05/12/24 16:00
Basic Metabolic Panel Q4
Lactic Acid Q4H
Comment: CANCEL 2nd LACTIC ACID IF 1st LACTIC ACID IS LESS THAN 2
05/12/24 16:30
Basic Metabolic Panel Q2H
05/12/24 18:00
Potassium Q2
Comment: report result to provider till Potassium >/= 3.3 to 5.3 mEq/L
05/12/24 20:00
Basic Metabolic Panel Q4
05/12/24 22:00
Potassium Q2
Comment: report result to provider till Potassium >/= 3.3 to 5.3 mEq/L
Tamsulosin [Flomax] 0.4 mg PO HS
05/13/24 00:00
Basic Metabolic Panel Q4
Potassium Q2
Comment: report result to provider till Potassium >/= 3.3 to 5.3 mEq/L
05/13/24 02:00
Potassium Q2
Comment: report result to provider till Potassium >/= 3.3 to 5.3 mEq/L
05/13/24 04:00
Basic Metabolic Panel Q4
Potassium Q2
Comment: report result to provider till Potassium >/= 3.3 to 5.3 mEq/L
05/13/24 06:00
Electrocardiogram (*1) IN AM
Reason for Study: Tachycardia
Complete Blood Count/No Diff IN AM
Glycohemoglobin (HgbA1c) IN AM
Potassium Q2
Comment: report result to provider till Potassium >/= 3.3 to 5.3 mEq/L
05/13/24 08:00
Basic Metabolic Panel Q4
Aspirin Chewable [Low Strength Aspirin] 81 mg PO DAILY
Atorvastatin [Lipitor] 40 mg PO DAILY
Clopidogrel Bisulfate [Plavix] 75 mg PO DAILY
05/13/24 12:00
Basic Metabolic Panel Q4
Abnormal Lab Results
05/12/24 05/12/24 05/12/24
11:17 11:18 11:40
WBC 19.8 H 10^3/uL
(4.8-10.8)
RBC 3.96 L 10^6/uL
(4.70-6.10)
Hgb 11.7 L g/dL
(13.0-18.0)
Hct 33.2 L %
(39.0-52.0)
RDW 14.6 H %
(11.5-14.5)
Abs Immat Gran (auto) 0.2 H 10^3/uL
(0-0.05)
Absolute Neuts (auto) 17.0 H 10^3/uL
(1.4-6.5)
Absolute Lymphs (auto) 0.6 L 10^3/uL
(1.2-3.4)
Absolute Monos (auto) 1.6 H 10^3/uL
(0.1-0.6)
Immature Gran % 1.0 H %
(0-0.5)
Neutrophils % 86.0 H %
(42.2-75.2)
Lymphocytes % 3.0 L %
(20.5-51.1)
PT 17.0 H Sec
(11.4-14.6)
VBG pH 7.26 L
(7.32-7.43)
VBG pCO2 34 L mmHg
(35-48)
VBG pO2 67 H mmHg
(30-50)
VBG HCO3 15.3 L mmol/L
(22-27)
Sodium 134 L mmol/L
(135-145)
Carbon Dioxide 13 L* mmol/L
(22-30)
BUN 101 H* mg/dl
(9-20)
Creatinine 4.1 H* mg/dL
(0.7-1.3)
Glucose 398 H mg/dl
(70-99)
Lactic Acid
Calcium 7.6 L mg/dl
(8.4-10.2)
Troponin I 0.106 H* ng/ml
Total Protein 5.5 L g/dl
(6.3-8.2)
Albumin 2.8 L g/dl
(3.5-5.0)
Ur Occult Blood Reflex
Leukocyte Esterase Rfl
Urine RBC
Urine Bacteria (Reflex)
Urine Glucose
Urine Albumin (Reflex)
B-Hydroxybutyrate 1.03 H mmol/L
(0.02-0.27)
POC Glucose 402 H mg/dl
(70-99)
05/12/24 05/12/24
11:51 13:02
WBC
RBC
Hgb
Hct
RDW
Abs Immat Gran (auto)
Absolute Neuts (auto)
Absolute Lymphs (auto)
Absolute Monos (auto)
Immature Gran %
Neutrophils %
Lymphocytes %
PT
VBG pH
VBG pCO2
VBG pO2
VBG HCO3
Sodium 134 L mmol/L
(135-145)
Carbon Dioxide 14 L* mmol/L
(22-30)
BUN 101 H* mg/dl
(9-20)
Creatinine 4.2 H* mg/dL
(0.7-1.3)
Glucose 392 H mg/dl
(70-99)
Lactic Acid 2.9 H mmol/L
(0.7-2.0)
Calcium 7.9 L mg/dl
(8.4-10.2)
Troponin I
Total Protein
Albumin
Ur Occult Blood Reflex 2+ A
(Negative)
Leukocyte Esterase Rfl 1+ A
(Negative)
Urine RBC 3-6 A /HPF
(0-2)
Urine Bacteria (Reflex) Many A
(Negative)
Urine Glucose 3+ A
(Negative)
Urine Albumin (Reflex) 2+ A
(Neg - Trace)
B-Hydroxybutyrate
POC Glucose
05/12/24 11:18
05/12/24 13:02
Vital Signs
Initial and Last Documented VS:
Initial Vital Signs
Temp Pulse Resp BP Pulse Ox
98.1 F 166 20 71/48 98
05/12/24 11:01 05/12/24 11:01 05/12/24 11:01 05/12/24 11:01 05/12/24 11:01
Last Documented Vital Signs
Temp Pulse Resp BP Pulse Ox
98.1 F 100 20 92/50 98
05/12/24 11:01 05/12/24 15:00 05/12/24 15:00 05/12/24 15:00 05/12/24 14:32
MDM/Problems Addressed
Differential Diagnosis Includes:
DKA, sepsis, rapid A-fib
MDM/Problems Addressed:
74-year-old male with DKA, rapid atrial fibrillation, acute renal failure, hypoglycemia. Admit to hospitalist. Insulin drip and IV fluids given. No infectious source found.
Chronic conditions affecting care: HTN and CAD
Acute Exacerbation and/or Progression of Chronic Illness: HTN, CAD and Arrhythmia
*Radiology
Radiology exam reviewed: radiology read reviewed (Chest x-ray no acute findings)
*Pulse Oximetry
Patient hypoxic: no
*EKG
Interpreted by ED Provider?: Yes
EKG Intrepretation Date: 05/12/24
EKG Intrepretation Time: 11:13
Interpretation: abnormal
Comparison EKG: changes noted
Heart Rate: 167
Rate: tachycardiac
Rhythm: a-fib
[place]: left axis deviation
Interval: normal interval
QRS Pattern: right bundle branch block
Ischemia: non-specific ST changes
*Health Care Manager Interpretation
Rate: tachycardiac
Interpretation: abnormal
Heart Rate: 145
Rhythm: a-fib
*Critical Care Note
Total Time (30-74mins, 75-104mins- exclusive of procedures): 45
comment:
Critical care statement: A total of 45 minutes of critical care time was provided for this patient. This includes management of unstable vital signs, evaluation of the patient at bedside, reviewing the patient's pertinent medical records, discussion
with consultants, review of old EKGs and review of pertinent medical records. This time with separate from time utilized to perform the aforementioned documented procedures
Data Reviewed
Review of Other/Old Records Reveals: Labs (Prior creatinine 1.7 on 02/12/2024)
Source: records
Patient Management
Social determinants of health affecting care: Living situation
Discussion with other providers: Hospitalist
Escalation/DeEscalation of care consider admission/obs:
Admit indicated
ED Attending Note
-
Portions of this chart may have been created with voice recognition software.� Occasional wrong word or��sound alike� substitutions may have occurred due to the inherent limitations of voice recognition software.
Discharge Plan
Departure
Patient Disposition: Admit
Date of Disposition: 05/12/24
Time of Disposition: 12:23
Admit to: ICU
Presentation/result/management discussed w/ accepting MD/DO: Hospitalist
Patient with high blood pressure during this ER visit?: No
Condition: Serious
Discharge Problem:
Atrial fibrillation with rapid ventricular response, Acute renal failure, DKA (diabetic ketoacidosis), Hypocalcemia
Interventions
Interventions:
*Risk Screen - Suicide Last Done: 05/12/24 11:01
*General Assessment Last Done: 05/12/24 11:01
*Neglect/Abuse Screening Last Done: 05/12/24 11:01
*ED- Fall Risk Assessment Last Done: 05/12/24 13:37
ED- Cardiac Assessment Last Done: 05/12/24 13:37
ED- Neurological Assessment Last Done: 05/12/24 13:37
ED- Pulmonary Assessment Last Done: 05/12/24 13:37
[2024-05-12 11:18] LABS: Glucose - Point of Care 402 mg/dl (70-99)
[2024-05-12] MEDS: NSS 1000 IV ×3 (11:20→15:46)
[2024-05-12 11:31] LABS: Hematocrit 33.2 % (39.0-52.0); Hemoglobin 11.7 g/dL (13.0-18.0); Mean Corp Hgb Conc. 35.2 g/dL (33.0-37.0); Mean Corpuscular Hgb 29.5 pg (27.0-31.0); Mean Corpuscular Volume 83.8 fL (80.0-94.0); Mean Platelet Volume 10.1 fL (7.4-10.4); Platelet Count 234 10^3/uL (130-400); Red Blood Cell Count 3.96 10^6/uL (4.70-6.10); Red Cell Dist. Width 14.6 % (11.5-14.5); White Blood Cell Count 19.8 10^3/uL (4.8-10.8)
[2024-05-12 11:34] LABS: INR 1.35
[2024-05-12 11:35] LABS: APTT 25.8 Sec (23.4-35.0)
[2024-05-12 11:45] LABS: ALT (SGPT) 33 U/L (0-50); AST (SGOT) 25 U/L (17-59); Albumin 2.8 g/dl (3.5-5.0); Alkaline Phosphatase 126 U/L (38-126); Blood Urea Nitrogen 101 mg/dl (9-20); Calcium 7.6 mg/dl (8.4-10.2); Carbon Dioxide 13 mmol/L (22-30); Chloride 104 mmol/L (98-107); Glucose 398 mg/dl (70-99); Magnesium 1.8 mg/dl (1.6-2.3); Potassium 4.3 mmol/L (3.5-5.1); Sodium 134 mmol/L (135-145); Total Bilirubin 0.6 mg/dl (0.2-1.3); Total Protein 5.5 g/dl (6.3-8.2); eGFR 14.62
[2024-05-12 11:47] LABS: Venous Blood Gas B.E. -10.8 mmol/L (-4 to +4); Venous Blood Gas HCO3 15.3 mmol/L (22-27); Venous Blood Gas O2 Sat % 93.1 %; Venous Blood Gas pCO2 34 mmHg (35-48); Venous Blood Gas pH 7.26 (7.32-7.43); Venous Blood Gas pO2 67 mmHg (30-50)
[2024-05-12 11:49] LABS: Venous Blood Gas O2 Therapy 99
[2024-05-12 11:52] LABS: Troponin I 0.106 ng/ml
[2024-05-12 12:14] LABS: Lactic Acid 2.9 mmol/L (0.7-2.0)
[2024-05-12 12:15] LABS: % Basophils 0.3 % (0-2); % Eosinophils 1.5 % (0-6); % Monocytes 8.2 % (1.7-9.3); Absolute Basophils 0.1 10^3/uL (0-0.2); Absolute Eosinophils 0.3 10^3/uL (0-0.7); Absolute Immature Granulocytes 0.2 10^3/uL (0-0.05); Absolute Lymphocytes 0.6 10^3/uL (1.2-3.4); Absolute Monocytes 1.6 10^3/uL (0.1-0.6); Nucleated Red Blood Cells % 0 % (-)
--- NOTE | 2024-05-12 12:48 | HPS.HSE ---
Family Physician
-
Family Physician: Gene Banks
Chief Complaint
-
[facility] for Rt Rib pain
History of Present Illness
74M HX IrDMT2, HTN, CAD seen at ER
- pw aching upper abdominal pain for last 5 days
- Not eating much
- Thus only take Lantus , Not taking Aspart
- Hypotensive
- He feels generally weak
EMS noted tachycardia, hypotension and glucose 477.
Medical History
Past Medical History
Past Medical History: Reports Other
Additional Past Medical History:
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
CAD/Cabg x 3 vessel
HTN
HLD
DM2
Renal calculi
occasional smoker.
Past Surgical History: Reports Other
Additional Past Surgical History:
R lower extremity with third toe gangrene S/P left TMA 09/21/2023 w/ debridement on 09/13/2023 -Wound Cx: MSSA and strep
CABG x3 vessel 8 years ago
appendectomy
Social History
Tobacco: Non-smoker (Patient reports he has never smoked in his life)
Alcohol: Occasional
Drug: None
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
Family History
Family History: Other (brother renal calculi )
Allergies / Home Medications
Allergies reflects when Allergies were last updated in [employer].
Home Medications with original date entered in [employer]
Allergy/Medication List:
Allergies
Allergy/AdvReac Type Severity Reaction Status Date / Time
No Known Allergies Allergy Verified 09/04/23 11:50
Home Medications
amlodipine 5 mg tablet 5 mg PO DAILY ##0 03/25/14
ascorbic acid (vitamin C) 1,000 mg tablet (Vitamin C) 1,000 mg PO DAILY 05/02/23
dapagliflozin propanediol 10 mg tablet (Farxiga) 10 mg PO DAILY 05/02/23
metoprolol succinate 50 mg tablet,extended release 24 hr 50 mg PO BID 05/02/23
lisinopril 20 mg tablet 10 mg (1/2 x 20 mg) PO DAILY #0 tabs 05/03/23
atorvastatin 40 mg tablet 40 mg PO HS 09/04/23
metformin 500 mg tablet 1,000 mg PO BIDWMEAL 09/04/23
wseijpksyhmt-ptc-gmmde acid-vit K-lycop 400 mcg-20 mcg-370 mcg tablet (Men's 50 Plus Multivitamin) 1 tab PO DAILY 09/04/23
omega 8-fbt-lht-fish oil 1,000 mg (120 mg-180 mg) capsule (Fish Oil) 1 cap PO DAILY 09/04/23
Review of Systems
-
Constitutional: Reports No Symptoms
EENT: Reports No Symptoms
Respiratory: Reports No Symptoms
Cardiac: Reports No Symptoms
Abdomen/GI: Reports No Symptoms
: Reports No Symptoms
Skin: Reports No Symptoms
Neurological: Reports No Symptoms
Endocrine: Reports See HPI
Hematologic/Lymphatic: Reports No Symptoms
Psych: Reports No Symptoms
Physical Exam
Vital Signs
Vital Signs
Temp Pulse Resp BP Pulse Ox
98.1 F 156 21 94/60 95
05/12/24 11:01 05/12/24 12:23 05/12/24 12:23 05/12/24 12:21 05/12/24 12:21
Physical Exam
General: Comfortable and Conversant; No Pain, Fever or Chills
HEENT: NormoCephalic, Anicteric, PERRLA, [place] Conjunctivae and No Ptosis
Respiratory: Clear; No Wheezes, Rales or Rhonchi
Cardiac: S1/S2 and Regular Rhythm; No Murmur, Rub, Gallop or Peripheral Edema
Breast: Deferred by me
GI: Soft, Non Tender, Non Distended, Normal Bowel Sounds and No Hepatosplenomegaly
Rectal: Deferred by Provider
Genito-urinary: Deferred by me
Musculoskeletal: No Clubbing, No Cyanosis, No Edema and Other (Rt BKA. healthy stump )
Neuro: AO x 3, No Motor Deficits, Cranial Nerves Intact and Other (Chronic neuropathy from ankles to feet); No Slurred Speech, Facial Droop or Tremors
Psych: Calm
Laboratory Results
-
05/12/24 11:18
Laboratory Results
PT 17.0 Sec (11.4-14.6) H 05/12/24 11:18
INR 1.35 05/12/24 11:18
APTT 25.8 Sec (23.4-35.0) 05/12/24 11:18
Lactic Acid 2.9 mmol/L (0.7-2.0) H 05/12/24 11:51
Total Bilirubin 0.6 mg/dl (0.2-1.3) 05/12/24 11:18
AST 25 U/L (17-59) 05/12/24 11:18
ALT 33 U/L (0-50) 05/12/24 11:18
Alkaline Phosphatase 126 U/L (38-126) 05/12/24 11:18
Troponin I 0.106 ng/ml H* 05/12/24 11:18
Data Reviewed
-
Diagnostic Radiology: Image Personally Visualized and interpreted
Medical Tests (Nuc Med, Echo, EKG etc): Report Reviewed by me
Lab Data: Labs Reviewed by me
Old Records: Reviewed
Impression/Plan
-
VS
05/12/24
11:01 05/12/24
11:15
Temp 98.1 F
Pulse 166 163
Blood pressure 71/48 75/44
SaO2 98
Oxygen Mode of Delivery Room air
Lab
02/12/24 05/12/24
07:35 11:18
WBC 19.8 H
Hgb 11.7 L
Plt Count 234
INR 1.35
Sodium 134 L
Potassium 4.3
Chloride 104
Carbon Dioxide 13 L*
BUN 33 H 101 H*
Creatinine 1.7 H 4.1 H*
eGFR 42.30 14.62
Pending UA
CXR: pending final report
EKG
ATRIAL FIBRILLATION WITH RAPID VENTRICULAR RESPONSE WITH PREMATURE VENTRICULAR
OR ABERRANTLY CONDUCTED COMPLEXES
LEFT AXIS DEVIATION
RIGHT BUNDLE BRANCH BLOCK
MINIMAL VOLTAGE CRITERIA FOR LVH, MAY BE NORMAL VARIANT ( R in aVL )
INFERIOR INFARCT , AGE UNDETERMINED
ANTERIOR INFARCT , AGE UNDETERMINED
T WAVE ABNORMALITY, CONSIDER LATERAL ISCHEMIA
ABNORMAL ECG
WHEN COMPARED WITH ECG OF 27-JAN-2024 14:44,
SIGNIFICANT CHANGES HAVE OCCURRED
NO PRIOR hospitalist admission:
ASSESSMENT & PLAN
DKA with Hi AG MA @ 17-20 for albumin correction plus lactate acidosis
Precipitated by not taking aspart insulin for last 5 days due to abdominal pain though taking lantus 17U HS
Multifactorial severe hypotension ( contracted volule, fast AF +/_ sepsis) )
RAYMOND due to volume contraction
CKD3b HX : baseline Cr 1.5- 1.7, eGFR 40s
- start DKA protocol
- Insulin gtt
- volume resuscitation with IV NS
- Hold Amlodipine and Metoprol sux
- W/U for acute infective pathology: pending UA and pending final CXR report
- DM TRACK MANAGER consult
- ICU consult
RAYMOND due to volume contraction
CKD3b HX : basline Cr 1.5- 1.7, eGFR 40s
Asso;: Hi AG MA @ 17-20 for albumin correction plus lactate acidosis
- Trend Vol, Wt, O
- Trend Cr , Gap acidosis with Volume resuscitation
Fast AF precipitated by DKA
- permissive HR upt to 120 while volume resuscitation with IV NS
- Emergent Tx for DKA
- Monitor HR
- IV Metoprolol 5 mg q6H PRN for
Cardiology consult
Elevated TPNI : NIMI vs NSTEMI
Abn EKG but NOS
HX CAD/CABG x 3 vessel
- Trend TPNI til peak
- ECHO in AM
HLD
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
Known HX
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
HX S/P left TMA 09/21/2023 w/ debridement on 09/13/2023
HX Wound Cx POS with MSSA and strep
HX R lower extremity with third toe gangrene
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
Renal calculi
DVT Px: LMWH
Full code
ICU
Total Critical Care Time__55___ minutes. I was immediately available to the patient and staff. I personally examined, reviewed labs, diagnostic images/reports, interpretations, treatment plans, discussed patient care with other providers and
family or caregivers (if patient is unable to make decisions), entered orders as appropriate and documented the medical record.
[2024-05-12 13:03] LABS: B-Hydroxybutyrate 1.03 mmol/L (0.02-0.27)
[2024-05-12 13:16] LABS: Urine Albumin 2+ (Neg - Trace); Urine Bilirubin Negative (Negative); Urine Character Clear (Clear); Urine Color Yellow; Urine Glucose 3+ (Negative); Urine Ketone Negative (Negative); Urine Leukocyte 1+ (Negative); Urine Nitrite Negative (Negative); Urine Occult Blood 2+ (Negative); Urine Specific Gravity 1.025 (<1.030); Urine Urobilinogen Negative (Neg - 1+)
[2024-05-12 13:29] LABS: Urine Amorphous Seen
--- NOTE | 2024-05-12 13:30 | CON.CAR ---
Consultation
Consultation Request
Date/Time Consultation Requested: May 12, 2024
Date/Time Consultation Performed: May 12, 2024
Requesting Provider: Dr. Mcfarlane
Performing Provider: Dr. Nina
Reason for Consultation: Atrial fibrillation
Medical History
-
Chief Complaint: Abdominal pain
History of Present Illness:
Flaquito is a 74-year-old male with past medical history significant for CABG VALIENTE to LAD and sequential vein graft to OM and right PLB 2014 diabetes mellitus type 2, CKD, anemia, right bundle branch block, hyperlipidemia, peripheral arterial disease
with recent right BKA January 2024, significant noncompliance who presents with several days of abdominal pain. He was not eating and not taking his insulin regularly. He presented in renal failure and DKA. He was hypotensive in the emergency
room and also developed atrial fibrillation with rapid ventricular response which is a new diagnosis for him. He denies chest pain or shortness of breath. Cardiology was consulted for further evaluation and treatment
He was last seen by Dr. Jony Rojas March 2021 and lost to follow-up.
Past medical history:
CABG x 3 VALIENTE to LAD and sequential vein graft to OM and right PLB 2014
Diabetes mellitus type 2
Chronic kidney disease
Anemia
Right bundle branch block
Hyperlipidemia
Peripheral arterial disease
Status post right BKA January 2024
Cataract
Echo July 2014: EF 55% with moderate LVH and no significant valvular disease.
Social History
Tobacco: Non-Smoker
Alcohol: Occasional
Drug: None
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
Family History
Family History: Reviewed & Not Pertinent (No premature CAD in the family)
Allergies / Home Medications
Allergy/AdvReac Type Severity Reaction Status Date / Time
No Known Allergies Allergy Verified 05/12/24 11:00
�Medication �Instructions �Recorded �Confirmed �Type
oxycodone 5 mg tablet 5 mg PO Q4HPRN PRN mild pain #10 01/30/24 01/30/24 Rx
tabs
acetaminophen 325 mg tablet 650 mg (2 x 325 mg) PO Q4HPRN PRN 02/13/24 05/12/24 Rx
mild pain #90 tabs
amlodipine 2.5 mg tablet 2.5 mg PO DAILY #30 tabs 02/13/24 05/12/24 Rx
aspirin 81 mg chewable tablet 81 mg PO DAILY Blood Clot 02/13/24 05/12/24 Rx
Prevention/Tx #30 tabs
atorvastatin 40 mg tablet 40 mg PO DAILY High Cholesterol 02/13/24 05/12/24 Rx
#30 tabs
cholecalciferol (vitamin D3) 25 25 mcg PO DAILY #30 tabs 02/13/24 05/12/24 Rx
mcg (1,000 unit) tablet
clopidogrel 75 mg tablet 75 mg PO DAILY #30 tabs 02/13/24 05/12/24 Rx
insulin glargine 100 unit/mL (3 17 unit (0.17 mL) SC HS Diabetes 02/13/24 05/12/24 Rx
mL) subcutaneous pen (Lantus #15 mL
Solostar U-100 Insulin)
metoprolol succinate 50 mg 50 mg PO NOON #30 tabs 02/13/24 05/12/24 Rx
tablet,extended release 24 hr
multivitamin with folic acid 400 1 tab PO DAILY #30 tabs 02/13/24 05/12/24 Rx
mcg tablet (Tab-A-Rafita)
tamsulosin 0.4 mg capsule 0.4 mg PO HS #30 caps 02/13/24 05/12/24 Rx
trazodone 50 mg tablet 25 mg (1/2 x 50 mg) PO HS 30 days 02/13/24 05/12/24 Rx
#15 tabs
insulin lispro 100 unit/mL 7 sliding scale dose SC AC 05/12/24 05/12/24 History
subcutaneous pen (Humalog KwikPen
(U-100) Insulin)
lidocaine 5 % topical patch 1 patch topical DAILYPRN PRN mild 05/12/24 05/12/24 History
pain
loperamide 2 mg tablet 2 mg PO TIDPRN PRN diarrhea 05/12/24 05/12/24 History
Review of Systems
-
History Source: Patient
All other systems: Negative unless noted
Abdomen/GI: Abdominal Pain
Physical Exam
Vital Signs
Temp Pulse Resp BP Pulse Ox
98.1 F 156 21 94/60 95
05/12/24 11:01 05/12/24 12:23 05/12/24 12:23 05/12/24 12:21 05/12/24 12:21
Physical examination:
General: No acute distress, AAOX3
Neck: Negative JVD
Heart: Tachycardic,, Negative S3 positive S1/S2, Negative S4, No murmur
Lungs: CTA b/l, negative wheezes/rales/rhonchi
Abd: Positive BS, NT/ND, neg rebound/rigidity/guarding
Ext: Right BKA. Left LE negative cyanosis/clubbing/edema
Neuro: nonfocal
Lab Results
05/12/24 11:18
Troponin I 0.106 ng/ml H* 05/12/24 11:18
Impression / Plan
-
.
Primary laundry tub maker: Dr. Jony Rojas
Primary care physician, Dr. Gene Banks
Impression:
DKA
Acute on chronic renal failure
Hypotension
Paroxysmal atrial fibrillation with RVR
Leukocytosis
Non-UT troponin elevation, 0.1
Anemia with history of anemia
Hx CABG x 3 VALIENTE to LAD and sequential vein graft to OM and right PLB 2014
Diabetes mellitus type 2
Right bundle branch block
Hyperlipidemia
Peripheral arterial disease
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
History noncompliance
LVH
Echo July 2014: EF 55% with moderate LVH and no significant valvular disease.
Plan:
Continue rate control strategy for atrial fibrillation for now given DKA and heart rates improved off beta-mary therapy.
Hypotension currently precludes resuming beta-mary therapy
IV heparin anticoagulation given elevated [id number] score in the setting of atrial fibrillation
Repeat EKG
Support BP as necessary, including pressor therapy if required. Patient receiving IV fluids, volume resuscitation
Amlodipine and metoprolol held in setting of hypotension
Monitor creatinine with fluid resuscitation.
Check echocardiogram to reevaluate left ventricular systolic function. Prior echo reviewed
Continue to trend troponin until they peak, medical therapy for now for non-UT troponin
Continue DKA treatment as per primary service and data management consultant.
Leukocytosis, workup and evaluation for infection as per primary service.
Continue dual antiplatelet therapy likely for recent BKA peripheral arterial disease. Would review with vascular regarding duration of Plavix therapy.
Discussed with hospitalist and emergency room.
[2024-05-12 13:31] LABS: Urine Bacteria Many (Negative)
[2024-05-12] MEDS: NOVOLIN R INSULIN INFUSION 100 IV (13:31)
[2024-05-12 13:56] LABS: Blood Urea Nitrogen 101 mg/dl (9-20); Calcium 7.9 mg/dl (8.4-10.2); Carbon Dioxide 14 mmol/L (22-30); Chloride 104 mmol/L (98-107); Estimated Creatinine Clearance 19 ml/min; Glucose 392 mg/dl (70-99); Potassium 4.4 mmol/L (3.5-5.1); Sodium 134 mmol/L (135-145)
[2024-05-12 14:34] LABS: Glucose - Point of Care 340 mg/dl (70-99)
[2024-05-12 14:57] LABS: Blood Urea Nitrogen 101 mg/dl (9-20); Calcium 7.4 mg/dl (8.4-10.2); Carbon Dioxide 13 mmol/L (22-30); Chloride 108 mmol/L (98-107); Estimated Creatinine Clearance 20 ml/min; Glucose 363 mg/dl (70-99); Potassium 4.2 mmol/L (3.5-5.1); Sodium 136 mmol/L (135-145); eGFR 15.52
[2024-05-12 15:26] LABS: Glucose - Point of Care 377 mg/dl (70-99)
[2024-05-12] MEDS: HEPARIN 25000 UNITS/250 ML IV (15:53)
--- NOTE | 2024-05-12 16:03 | CON.INTV ---
Consultation
Consultation Request
Date/Time Consultation Requested: 05/12/2024 - 152
Date/Time Consultation Performed: 05/12/2024 - 1549
Requesting Provider: Dr. Mcfarlane
Performing Provider: Dr. Beebe
Reason for Consultation: Hyperglycemia/Acidotic/RAYMOND
Medical History
-
Chief Complaint: Rib pain + malaise/weakness
History of Present Illness:
74-year-old male with a past medical history of PAD s/p right BKA, CAD s/p CABG x 3, DM type II, hypercholesterolemia and history of cataracts who presents with right-sided rib pain. He denies any recent injury or trauma. When EMS arrived his
blood pressure was low and blood glucose was 477. Patient felt weak and unwell. Upon further history he has been having upper abdominal discomfort for 5 days and not eating much. He was not taking his short acting insulin but was taking his
Lantus. In the ER he was afebrile to 98.1 �F, pulse rate 166 with rapid A-fib (new diagnosis), respiratory rate 20, BP 71/48 and saturating 98% on room air. Labs showed leukocytosis to 19.8, Hb 11.7, pH 7.26, pCO2 34, sodium 134, glucose 398,
creatinine 4.1, BUN 101, serum bicarbonate level 13, lactate 2.9, troponin 0.106, and beta-hydroxybutyrate 1.03. Blood cultures were collected, and CXR showed no acute cardiopulmonary process with suspected bibasilar atelectasis. In the ER he was
given 2 L NS 0.9%, and started on insulin drip for suspected DKA. A-fib with RVR seen on EKG and cardiology consulted to heparin drip was started given elevated [id number] score. Of note he does take metoprolol at home. Patient was then
admitted to the ICU for further care and [employer] services consulted for additional management/recommendations.
When I saw the patient he was resting in bed, on room air in no acute distress. Says that he developed nausea/vomiting and diarrhea about 5 days ago. No known sick contacts. He has not had a full meal since about 5 days ago. He is continuing to
take his Lantus but not his short acting aspart. He takes 17 units Lantus at night and sliding scale aspart during the day. He lives alone. He recently had his right lower extremity amputated below the knee on 01/26/2024. The only possible
source for his current symptoms was from physical therapy that he went to in [place], [place] about 1 week ago. 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 He currently
denies shortness of breath, cough, [place], fevers or chills. He last had nausea/vomiting/diarrhea 2 days ago.
PMHx: PAD, hypercholesterolemia, DM type II, history of cataract surgery, hypertension, CAD s/p CABG x3
PSHx: Cellulitis, right foot/toe amputation, CABG x 3, right BKA
Past Medical History
Past Medical History: Other (Above as per HPI)
Past Surgical History: Other (Above as per HPI)
Social History
Tobacco: Non-smoker
Alcohol: Occasional
Drug: None
Living: Alone
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
Family History
Family History: Cancer (Father: Lung cancer)
Allergies / Home Medications
Allergies
Allergy/AdvReac Type Severity Reaction Status Date / Time
No Known Allergies Allergy Verified 05/12/24 11:00
Home Medications
�Medication �Instructions �Recorded �Confirmed �Last Taken �Type
oxycodone 5 mg tablet 5 mg PO Q4HPRN PRN mild pain #10 01/30/24 01/30/24 Unknown Rx
tabs
acetaminophen 325 mg tablet 650 mg (2 x 325 mg) PO Q4HPRN PRN 02/13/24 05/12/24 05/12/24 Rx
mild pain #90 tabs
amlodipine 2.5 mg tablet 2.5 mg PO DAILY #30 tabs 02/13/24 05/12/24 05/12/24 Rx
aspirin 81 mg chewable tablet 81 mg PO DAILY Blood Clot 02/13/24 05/12/24 05/12/24 Rx
Prevention/Tx #30 tabs
atorvastatin 40 mg tablet 40 mg PO DAILY High Cholesterol 02/13/24 05/12/24 05/12/24 Rx
#30 tabs
cholecalciferol (vitamin D3) 25 25 mcg PO DAILY #30 tabs 02/13/24 05/12/24 05/12/24 Rx
mcg (1,000 unit) tablet
clopidogrel 75 mg tablet 75 mg PO DAILY #30 tabs 02/13/24 05/12/24 05/12/24 Rx
insulin glargine 100 unit/mL (3 17 unit (0.17 mL) SC HS Diabetes 02/13/24 05/12/24 05/11/24 Rx
mL) subcutaneous pen (Lantus #15 mL
Solostar U-100 Insulin)
metoprolol succinate 50 mg 50 mg PO NOON #30 tabs 02/13/24 05/12/24 Unknown Rx
tablet,extended release 24 hr
multivitamin with folic acid 400 1 tab PO DAILY #30 tabs 02/13/24 05/12/24 05/12/24 Rx
mcg tablet (Tab-A-Rafita)
tamsulosin 0.4 mg capsule 0.4 mg PO HS #30 caps 02/13/24 05/12/24 Unknown Rx
trazodone 50 mg tablet 25 mg (1/2 x 50 mg) PO HS 30 days 02/13/24 05/12/24 Unknown Rx
#15 tabs
insulin lispro 100 unit/mL 7 sliding scale dose SC AC 05/12/24 05/12/24 5 Days Ago History
subcutaneous pen (Humalog KwikPen ~05/07/24
(U-100) Insulin)
lidocaine 5 % topical patch 1 patch topical DAILYPRN PRN mild 05/12/24 05/12/24 Unknown History
pain
loperamide 2 mg tablet 2 mg PO TIDPRN PRN diarrhea 05/12/24 05/12/24 05/12/24 History
Review of Systems
-
History Source: Patient
All other systems: Negative unless noted
Vitals / Labs / Diagnostic Testing
Vital Signs
Temp Pulse Resp BP Pulse Ox
98.1 F 141 16 97/52 99
05/12/24 11:01 05/12/24 13:36 05/12/24 13:36 05/12/24 13:36 05/12/24 13:37
Lab Data
05/12/24 11:18
Laboratory Results
05/12/24
11:18
PT 17.0 H
INR 1.35
APTT 25.8
Diagnostic Testing:
Physical Exam
-
HEENT: Normocephalic and Anicteric
Cardiovascular: Irregular Rhythm (Irregularly irregular), Peripheral Edema (negative) and Other (Tachycardic)
Respiratory: Wheeze (negative), Rales (negative), Rhonchi (negative), Non-Labored Respirations and Other (Diminished breath sounds at right base)
GI: Soft, Non Distended, Tender (Mildly tender to palpation in the periumbilical region) and Other (Hypoactive BS)
Neurology: AO x 3 and Tremors (negative)
Skin: Warm, Dry and Other (s/p right BKA)
General: Respiratory Distress (negative), Comfortable, Fever (negative), Chills (negative) and Poor Appetite
Assessment
-
Assessment: 74-year-old male with a past medical history of PAD s/p right BKA, CAD s/p CABG x 3, DM type II, hypercholesterolemia and history of cataracts who presents with right-sided rib pain. He denies any recent injury or trauma. When EMS
arrived his blood pressure was low and blood glucose was 477. Patient felt weak and unwell. Upon further history he has been having upper abdominal discomfort for 5 days and not eating much. He was not taking his short acting insulin but was
taking his Lantus. In the ER he was afebrile to 98.1 �F, pulse rate 166 with rapid A-fib (new diagnosis), respiratory rate 20, BP 71/48 and saturating 98% on room air. Labs showed leukocytosis to 19.8, Hb 11.7, pH 7.26, pCO2 34, sodium 134,
glucose 398, creatinine 4.1, BUN 101, serum bicarbonate level 13, lactate 2.9, troponin 0.106, and beta-hydroxybutyrate 1.03. Blood cultures were collected, and CXR showed no acute cardiopulmonary process with suspected bibasilar atelectasis. In
the ER he was given 2 L NS 0.9%, and started on insulin drip for suspected DKA. A-fib with RVR seen on EKG and cardiology consulted to heparin drip was started given elevated [id number] score. Of note he does take metoprolol at home. Patient
was then admitted to the ICU for further care and [employer] services consulted for additional management/recommendations.
Chronic conditions WINTERIZER: PAD, hypercholesterolemia, DM type II, history of cataract surgery, hypertension, CAD s/p CABG
Impression:
#DM type II complicated by hyperglycemia (not concern for DKA given urine ketones is negative)
#Nausea/vomiting/diarrhea with poor PO intake over the last 5 days likely due to recent acute gastroenteritis
#RAYMOND on CKD with metabolic acidosis due to prerenal azotemia
#Metabolic acidosis with increased anion gap mainly due to RAYMOND + lactic acidosis
#Lactic acidosis
#Rapid A-fib (new diagnosis)
#Elevated troponin likely due to demand ischemia with type II NC
#Leukocytosis
#Chronic anemia (baseline Hb 9�11.5g/dL)
#CAD s/p CABG x 3
#Hypertension
#PAD s/p right BKA (OR date: 01/26/[address] Caraballo)
#Hypercholesterolemia
Plan:
- Patient is presenting with severe prerenal azotemia from a suspected gastroenteritis episode that started about 5 days ago with marked reduction in oral intake with nausea/vomiting/diarrhea
- He has received 2L bolus of NS since admission and is currently on NS 0.9%% at 250cc/hr
- Given his acidosis, we will change him from NS 0.9% to bicarb drip
- Once acidosis improves then could change to isotonic crystalloids at that time depending on his volume status and serum bicarbonate + serum sodium levels
- Patient does not need DKA insulin protocol given that acidosis is likely due to RAYMOND with serum creatinine 4.1 (baseline 1.5�1.6) and urine ketones is negative
- Change to critical care hyperglycemia protocol for now
- Recommend serial chemistries to trend the serum bicarbonate level + [K] although does not need to be q4hr
- q1hr FS while on insulin gtt
- Avoid hypoglycemia with goal BG >100 and <180
- Recommend nephrology consult as he may need dialysis
- As stated above, trend serum potassium level + serum bicarbonate
- Start bicarbonate infusion as stated above
- Trend blood gas to assure pH + pCO2 remained stable
- Maintain MAP >65
- Lactate has now normalized to 1.8 hence no longer need to continue trending at this time
- Troponin elevated but likely due to demand ischemia; continue trending until peaks
- Need to control HR with goal <110; recommend cardiology consult; if HR remains uncontrolled then would start amiodarone gtt given his hypotension
- Cardiology consulted and recommendations appreciated
- Recheck echo (last done in 2014)
- Maintain SpO2 >90-94%
- Aspiration precautions
- Currently denies symptoms of pneumonia
- prn nebulized bronchodilators - not currently bronchospastic
- Incentive spirometer encouraged 10x per hour for at least 4 hrs a day
- Pain control (abdominal)
- What is encouraging is that the lactate is improving, now 1.8, so doubt abdominal discomfort is due to anything ischemic at this point
- Due to leukocytosis, would recommend imaging him with a CT abdomen/pelvis when able to transfer off the floor
- He is hypotensive unfortunately and now being started on vasopressors so will empirically start antibiotics for now with cefepime + Flagyl and continue to monitor
- Check lipase --> if elevated then check lipid panel to assess TG level
- Replete electrolytes with K>4, Mg>2
- Maintain euglycemia with goal BG 140-180
- Trend H/H and transfuse if needed to keep Hb>7g/dL; keep plt>20k, unless there is concern for bleeding then keep plt>50k
- DVT ppx: Heparin drip
Continue ICU level care for this critically ill patient
Critical care statement: A total of 40 minutes of critical care time was provided for this patient today. This includes management of unstable vital signs, evaluation of the patient at bedside, reviewing the patient's pertinent medical records
including radiographs, microbiology, laboratory evaluations, and discussion with primary team, consultants, pharmacy, nutrition, physical therapy, case management, charge nurse, critical care nursing, and respiratory therapy.
Data:
CXR 05/12/2024:
Lungs appear slightly hypoinflated, with stable elevation right hemidiaphragm.
Patchy parenchymal opacity within the medial aspect of both lower lungs, likely atelectasis.
[2024-05-12 16:09] LABS: Lactic Acid 1.8 mmol/L (0.7-2.0)
[2024-05-12 16:29] LABS: Glucose - Point of Care 363 mg/dl (70-99)
[2024-05-12 16:48] LABS: Blood Urea Nitrogen 89 mg/dl (9-20); Calcium 6.1 mg/dl (8.4-10.2); Carbon Dioxide 13 mmol/L (22-30); Chloride 114 mmol/L (98-107); Estimated Creatinine Clearance 26 ml/min; Glucose 254 mg/dl (70-99); Potassium 3.4 mmol/L (3.5-5.1); Sodium 137 mmol/L (135-145); eGFR 21.26
[2024-05-12] MEDS: LEVOPHED 250 IV (17:02)
--- NOTE | 2024-05-12 17:02 | PTCARENOTE ---
patint received from ED, assessment per work list. patient oriented, co abdominal pain X4 days. denies nausea. last stool yesterday. monitor nsr with bbb,pac's. insulin per work list. IVF initiated, borderline blood pressures. abdomen soft, tender.
no void at this time. right BKA with healed incision. doppler distal pulses. unable to start additional IV's despite multiple sticks. VAT team at bedside. additional access obtained. labs sent. safety director updated with continued hypotension, patient
abdominal pain(patient refusing any pain medications at this time) and critical labs. orders pending. patient emergency contact called and updated per patient request. heparin initiated per orders. levophed started for hypotension. oriented to room,
call abbott in reach
[2024-05-12 17:10] LABS: Osmolality Urine 437 mOsm/kg (300-900)
[2024-05-12] MEDS: KCL ELIXIR 20 MEQ PO (17:18)
[2024-05-12 17:25] LABS: Urine Sodium 24 mmol/L (30-90)
[2024-05-12 17:26] LABS: Glucose - Point of Care 278 mg/dl (70-99)
[2024-05-12] MEDS: CALCIUM GLUCONATE 130 MG IV (17:35)
[2024-05-12] MEDS: SODIUM BICARBONATE 1150 MEQ IV (17:36)
[2024-05-12 17:39] LABS: Magnesium 1.5 mg/dl (1.6-2.3); Phosphorus 2.8 mg/dl (2.5-4.5)
[2024-05-12 18:01] LABS: Glucose - Point of Care 285 mg/dl (70-99)
[2024-05-12] MEDS: FLAGYL 500 MG 100 IV (18:08)
[2024-05-12] MEDS: STERILE WATER FOR INJECTION 10 ML IV (18:09)
[2024-05-12] MEDS: MAXIPIME 1000 MG IV (18:09)
--- NOTE | 2024-05-12 18:41 | PTCARENOTE ---
no urine output since admission to ICU. bladder scan per work list. patient is ADAMANT he not be straight cathed or have a bosch inserted. he will attempt to void. loan examiner updated on patient refusal for intervention
[2024-05-12 19:01] LABS: Glucose - Point of Care 216 mg/dl (70-99)
[2024-05-12] MEDS: OMNIPAQUE 50 ML PO (19:28)
--- NOTE | 2024-05-12 19:40 | PTCARENOTE ---
Pt received from previous RN. Pt AAOx3, flat affect. Pt is NSR to ST w/ PAC and BBB. Lung sounds are diminished as the bases, shallow breathing. Round and tender w/ palpitation abd. Pt had difficulty urinating. Pt was bladder scan post void of 450
ml. Pt has 296 ml of urine residual. Pt reamins in Levo, insulin, and heparin gtt. Oral contrasted started for abd Ct scan. no c/o nausea. pt appears comfortable in bed.
[2024-05-12 20:05] LABS: Glucose - Point of Care 245 mg/dl (70-99)
[2024-05-12 21:03] LABS: Glucose - Point of Care 184 mg/dl (70-99)
[2024-05-12] MEDS: FLOMAX 0.4 MG PO (21:03)
--- NOTE | 2024-05-12 21:50 | PTCARENOTE ---
Pt came back from abd CT. Pt remains in levo, heparin, and insulin gtt. pt appears comfortable in bed.
[2024-05-12 22:09] LABS: Glucose - Point of Care 175 mg/dl (70-99)
[2024-05-12 22:18] LABS: Venous Blood Gas HCO3 17.7 mmol/L (22-27); Venous Blood Gas O2 Sat % 99.6 %; Venous Blood Gas pCO2 32 mmHg (35-48); Venous Blood Gas pH 7.35 (7.32-7.43); Venous Blood Gas pO2 135 mmHg (30-50)
[2024-05-12 22:33] LABS: APTT 50.6 Sec (23.4-35.0); Blood Urea Nitrogen 99 mg/dl (9-20); Calcium 7.6 mg/dl (8.4-10.2); Carbon Dioxide 18 mmol/L (22-30); Chloride 106 mmol/L (98-107); Estimated Creatinine Clearance 24 ml/min; Glucose 148 mg/dl (70-99); Magnesium 1.7 mg/dl (1.6-2.3); Phosphorus 2.7 mg/dl (2.5-4.5); Potassium 3.7 mmol/L (3.5-5.1); Sodium 133 mmol/L (135-145); eGFR 18.97
[2024-05-12 22:46] LABS: Troponin I 0.098 ng/ml
[2024-05-12] MEDS: TYLENOL 650 MG PO (23:00)
[2024-05-12 23:05] LABS: Glucose - Point of Care 149 mg/dl (70-99)
[2024-05-13] VITALS (67 sets, daily range): BP systolic 76–156; BP diastolic 34–143; BMI 24.1; BMI 23.9
[2024-05-13 00:06] LABS: Glucose - Point of Care 132 mg/dl (70-99)
--- NOTE | 2024-05-13 00:15 | PTCARENOTE ---
No major changes. Pt remains in insulin gtt at 1.5 and Levo gtt at 3. Pt appears comfortable in bed just having a hard time sleeping. INDUSTRIAL SPRAY PAINTER notified and trazodone order.
[2024-05-13] MEDS: DESYREL 25 MG PO ×2 (00:39→22:39)
[2024-05-13 01:07] LABS: Glucose - Point of Care 130 mg/dl (70-99)
[2024-05-13] MEDS: FLAGYL 500 MG 100 IV ×3 (01:14→16:52)
[2024-05-13 02:04] LABS: Glucose - Point of Care 133 mg/dl (70-99)
[2024-05-13] MEDS: SODIUM BICARBONATE 1150 MEQ IV ×2 (02:13→08:55)
--- NOTE | 2024-05-13 03:28 | PTCARENOTE ---
Addendum entered by Peter Mei RN 05/13/24 03:34:
Pt appears to be Afib from 100-130
Original Note:
Pt had 10 beats of Vtach. Pt was urinating when it occurred. WOOD MACHINE CARVER notified.
[2024-05-13 04:19] LABS: Glucose - Point of Care 98 mg/dl (70-99)
[2024-05-13] MEDS: DILAUDID 0.5 MG IV (04:31)
[2024-05-13 04:36] LABS: B.E. -3.7 mmol/L; HCO3 19.9 mmol/L (21-28); PCO2 30 mmHg (35-48); PO2 79 mmHg (83-108); pH 7.43 (7.35-7.45)
[2024-05-13 04:39] LABS: Ionized Calcium 1.02 mMOL/L (1.15-1.33)
[2024-05-13] MEDS: LOPRESSOR 5 MG IV (04:42)
--- NOTE | 2024-05-13 04:51 | PTCARENOTE ---
Pt c/o severe abd pain. LEGAL MEDIATOR notified and Dilaudid 5.5 mg administer. Pt heart rate change to rapid afib in the 150-170's. EKG done. SBP stable. Lopressor IV administer for HR. Glucose 98 and insulin gtt stopped. Will continue with tx.
[2024-05-13 04:59] LABS: Hematocrit 25.9 % (39.0-52.0); Hemoglobin 9.4 g/dL (13.0-18.0); Mean Corp Hgb Conc. 36.3 g/dL (33.0-37.0); Mean Corpuscular Hgb 29.7 pg (27.0-31.0); Mean Platelet Volume 9.7 fL (7.4-10.4); Platelet Count 229 10^3/uL (130-400); Red Blood Cell Count 3.16 10^6/uL (4.70-6.10); Red Cell Dist. Width 14.6 % (11.5-14.5); White Blood Cell Count 15.9 10^3/uL (4.8-10.8)
[2024-05-13 05:00] LABS: APTT 69.9 Sec (23.4-35.0)
[2024-05-13] MEDS: MAXIPIME 1000 MG IV ×2 (05:09→16:52)
[2024-05-13] MEDS: STERILE WATER FOR INJECTION 10 ML IV ×2 (05:10→16:52)
[2024-05-13 05:12] LABS: Blood Urea Nitrogen 95 mg/dl (9-20); Calcium 7.4 mg/dl (8.4-10.2); Carbon Dioxide 21 mmol/L (22-30); Chloride 106 mmol/L (98-107); Estimated Creatinine Clearance 29 ml/min; Glucose 118 mg/dl (70-99); HDL Cholesterol 13 mg/dl; LDL Cholesterol, Calculated 16.99999 mg/dl; Lipase 48 U/L (23-300); Magnesium 1.7 mg/dl (1.6-2.3); Phosphorus 2.8 mg/dl (2.5-4.5); Potassium 3.5 mmol/L (3.5-5.1); Sodium 134 mmol/L (135-145); Total Cholesterol < 50 mg/dl (50-199); Triglyceride 102 mg/dl (10-149); Very Low Density Lipoprotein 20 mg/dl (0-30); eGFR 24.13
[2024-05-13 05:25] LABS: Troponin I 0.086 ng/ml
--- NOTE | 2024-05-13 05:34 | W.PN.UPDATE ---
Update Note
Progress Note Update
05/13/24
0500- Patient heart rate rapid afib, 170s. EKG obtained, rapid afib. SBP 100-150s. Lopressor 5mg IV given. Levophed gtt turned off, will transition to ronan gtt if needed. Lopressor lowered HR to 140s, will add amio bolus 150 and amiodarone gtt per
protocol.
[2024-05-13] MEDS: CORDARONE 103 MG IV (05:35)
[2024-05-13] MEDS: CORDARONE 518 MG IV (05:43)
[2024-05-13] MEDS: MAGNESIUM SULFATE 50 IV (05:58)
[2024-05-13] MEDS: KCL 270 MEQ IV (05:58)
[2024-05-13] MEDS: NEO-SYNEPHRINE 250 IV (06:14)
[2024-05-13 06:22] LABS: Glucose - Point of Care 178 mg/dl (70-99)
--- NOTE | 2024-05-13 06:30 | PTCARENOTE ---
Amiodarone, magnesium and potassium gtt started. Jhoan initiated at 20 mcg/ min. Glucose level 178, MARKET RESEARCH ASSISTANT notified to continue insulin drip or discontinue. MARKET RESEARCH ASSISTANT started on insulin sliding scale. Pt was NPO for emmy HERRERA.
[2024-05-13] MEDS: NOVOLOG FLEXPEN-MODERATE RESISTANCE 1 UNITS SC (06:47)
--- NOTE | 2024-05-13 07:32 | PTCARENOTE ---
pt received from previous rn- aox3, pt in afib rate 150s- Dr. Starks at bedside and poc discussed. pt on room air. complaints of mild abd pain/discomfort. pt with right bka. heparin, ivf, ronan, amio and k rider continue as per order see flowsheets.
all safety precautions in place, call abbott within reach.
--- NOTE | 2024-05-13 08:03 | W.PN.INTV ---
Addendum entered and electronically signed by Nimo Starks MD 05/13/24 11:21:
Patient remains critically ill, requiring pressors. Remains in rapid atrial fibrillation, required initiation of amiodarone. Patient feels improved, primary complaint is lower abdominal discomfort. Denies shortness of breath, chest pain,
palpitations, lightheadedness. Conversing comfortably
Heart rate as high as 160s to 170s, currently transition to sinus rhythm
Urine output adequate, 1100 cc. Remains afebrile
Comfortable appearing, missing teeth
Chest exam is clear
Right BKA, mild pallor, extremities warm
Mild lower abdominal discomfort. Could not elicit any right upper quadrant pain on my exam
Data reviewed
ABG with improved acidemia, normal lactate, troponin trending down
CT chest/abdomen with questionable mild cholelithiasis, cholecystitis
Creatinine improving to 2.7
Hemoglobin decreased to 9.4 from 11.7
A/P
Moving forward
Continue with empiric treatment for atrial fibrillation with RVR, suspected sepsis
Remains on cefepime/Flagyl
CT abdomen findings reviewed. Await abdominal ultrasound. GI has been consulted
Blood sugars improved
Off insulin drip, continue monitoring
Discontinue bicarbonate drip
LR bolus, continue with IV fluids maintenance LR at 100
Wean off Jhoan-Synephrine as able
Heparin drip continues
Remains on amiodarone. Cardiology following
Echo pending
Reviewed with critical care nursing, respiratory care, pharmacy, case management
Reviewed briefly with GI
TCCT 35 min
Original Note:
Today's Communication / Plan
Recommendations
d/c bicarb drip
Ultrasound abdomen
1 bolus of LR
Wean pressors as tolerated
Repeat Hb at 3 today
continue care in icu
Assessment
-
Assessment: 74-year-old male with a past medical history of PAD s/p right BKA, CAD s/p CABG x 3, DM type II, hypercholesterolemia and history of cataracts who presents with right-sided rib pain. He denies any recent injury or trauma. When EMS
arrived his blood pressure was low and blood glucose was 477. Patient felt weak and unwell. Upon further history he has been having upper abdominal discomfort for 5 days and not eating much. He was not taking his short acting insulin but was
taking his Lantus. In the ER he was afebrile to 98.1 �F, pulse rate 166 with rapid A-fib (new diagnosis), respiratory rate 20, BP 71/48 and saturating 98% on room air. Labs showed leukocytosis to 19.8, Hb 11.7, pH 7.26, pCO2 34, sodium 134,
glucose 398, creatinine 4.1, BUN 101, serum bicarbonate level 13, lactate 2.9, troponin 0.106, and beta-hydroxybutyrate 1.03. Blood cultures were collected, and CXR showed no acute cardiopulmonary process with suspected bibasilar atelectasis. In
the ER he was given 2 L NS 0.9%, and started on insulin drip for suspected DKA. A-fib with RVR seen on EKG and cardiology consulted to heparin drip was started given elevated [id number] score. Of note he does take metoprolol at home. Patient
was then admitted to the ICU for further care and Appliance Worker services consulted for additional management/recommendations.
Chronic conditions FIELD ASSOCIATE: PAD, hypercholesterolemia, DM type II, history of cataract surgery, hypertension, CAD s/p CABG
Impression:
# Sepsis; unknown source
#DM type II complicated by hyperglycemia (not concern for DKA given urine ketones is negative)
#Nausea/vomiting/diarrhea with poor PO intake over the last 5 days likely due to recent acute gastroenteritis
#RAYMOND on CKD with metabolic acidosis due to prerenal azotemia
#Metabolic acidosis with increased anion gap mainly due to RAYMOND + lactic acidosis
#Lactic acidosis- resolved
#Rapid A-fib (new diagnosis)
#Elevated troponin likely due to demand ischemia with type II MD
#Leukocytosis
#Chronic anemia (baseline Hb 9�11.5g/dL)
#CAD s/p CABG x 3
#Hypertension
#PAD s/p right BKA (OR date: 01/26/[address] Caraballo)
#Hypercholesterolemia
#anemia
Plan:
- Sepsis; source unknown; Abdominal pain; likely related to recent acute gastroenteritis
- Continue empiric antibiotics; cefepime and Flagyl
- Lipase wnl
- Currently on jhoan to maintain MAP > 65; wean as tolerated
- GI consulted
- CT abdomen/pelvis with cholelithiasis with mild gallbladder distention surrounding stranding concerning for acute cholecystitis; patient awaiting ultrasound abdomen
- Lactate has now normalized to 1.8 hence no longer need to continue trending at this time
- Troponin peaked at 0.098 and now trending down likely due to demand ischemia
- Patient presented with severe prerenal azotemia from a suspected gastroenteritis episode that started about 5 days prior to arrival with marked reduction in oral intake with nausea/vomiting/diarrhea
- his acidosis resolved; d/c bicarb drip
- 1 bag of LR bolus today
- Patient patient was initially placed on DKA insulin protocol however acidosis is likely due to RAYMOND with serum creatinine 4.1 (baseline 1.5�1.6) and urine ketones is negative
- d/c insulin drip; maintain insulin sliding scale; once able to eat restart home insulin
- Avoid hypoglycemia with goal BG >100 and <180
- Creatinine continues to improve 2.7 in the AM today
-A-fib; patient informed that he had episode of A-fib many years ago
-Patient in sinus rhythm as of 10 AM; currently on on heparin and amiodarone gtt
-Pending updated echo (last done in 2014)
- Maintain SpO2 >90-94%
- Aspiration precautions
- Currently denies symptoms of pneumonia
- prn nebulized bronchodilators - not currently bronchospastic
- Incentive spirometer encouraged 10x per hour for at least 4 hrs a da
- Replete electrolytes with K>4, Mg>2
- Maintain euglycemia with goal BG 140-180
- Trend H/H and transfuse if needed to keep Hb>7g/dL; keep plt>20k, unless there is concern for bleeding then keep plt>50k
- DVT ppx: Heparin drip
Continue ICU level care for this critically ill patient
Data:
CXR 05/12/2024:
Lungs appear slightly hypoinflated, with stable elevation right hemidiaphragm.
Patchy parenchymal opacity within the medial aspect of both lower lungs, likely atelectasis.
CT abd/pelvis 05/02/24:
Cholelithiasis with mild gallbladder distention and surrounding stranding concerning for acute cholecystitis. Recommend correlation with right upper quadrant ultrasound.
There is mild wall thickening along the hepatic flexure, possibly reactive mild colitis.
Bibasilar airspace opacities which likely represent atelectasis.
Subjective Dataa
Subjective Data
Date of Service:
Date of Service: May 13, 2024
Chief Complaint: Appliance Worker Follow Up
Subjective:
Seen and evaluated in the AM. Patient laying in the bed comfortably. Offers no new complaints. Afebrile with blood pressure of 112/58, pulse in 140s, RR 26, O2 sat 95% on room air.
Review of Systems
General: Fever (no)
Cardiopulmonary: Cough (no)
GI: Abdominal Pain (no)
Neuro: Headache (no)
Objective Data
Data Reviewed
Vital Signs / I&O / Oxygen:
Vital Signs
Temp Pulse Resp BP Pulse Ox
99.1 F 149 26 112/58 95
05/13/24 00:15 05/13/24 06:30 05/13/24 06:30 05/13/24 06:30 05/13/24 07:27
Intake and Output
05/12/24 05/13/24 05/14/24
06:59 06:59 06:59
Intake Total 3901.45 / 4196.25 294.8 / 294.8
Output Total 1050 / 1050
Balance 2851.45 / 3146.25 294.8 / 294.8
SaO2 95
Physical Exam
General: Comfortable
Cardiovascular: S1-S2 and Irregular Rhythm
Respiratory: Non-Labored Respirations
GI: Soft and Non Distended
Neurology: Awake, Alert and Oriented
Skin: Warm, Dry and Other (Right BKA)
Labs/Micro/Reports
Lab Data
05/13/24 04:26
Laboratory Results
05/12/24 05/12/24 05/12/24
11:18 15:24 22:09
PT 17.0 H
INR 1.35
APTT 25.8 Cancelled 50.6 H
pH
pCO2
pO2
HCO3
O2 Delivery Level
05/13/24 05/13/24
04:26 04:28
PT
INR
APTT 69.9 H
pH 7.43
pCO2 30 L
pO2 79 L
HCO3 19.9 L
O2 Delivery Level
--- NOTE | 2024-05-13 08:17 | CON.GI ---
Addendum entered and electronically signed by Seven Mora MD 05/13/24 10:38:
Patient seen and examined, agree with nurse practitioner note. Patient is a 74-year-old male with past medical history of coronary disease, diabetes, hypertension, renal insufficiency, osteomyelitis who presents with increasing abdominal pain and
vomiting. He initially started to not feel well more than 5 days ago with vomiting and diarrhea. He took Pepto-Bismol and Imodium and after that noted some darker stools, though had persistent right upper quadrant pain. Sometimes radiates to the
back, has associated nausea and vomiting. He was unable to tolerate much p.o., including his medications and upon admission was found to have significant leukocytosis, with white count of 19.8, hyperglycemia with signs of acidosis with bicarb of
13, initial pH was 7.26 on ABG, with mildly elevated troponin. LFTs were normal. CT scan showed gallstones with some mild distention and surrounding stranding along with probable reactive hepatic flexure colitis. He was tachycardic to the 150s,
hypotensive on admission, now doing better with volume, amiodarone and pressors. He is feeling better overall, though still having some upper quadrant discomfort. On exam he has mild right upper quadrant tenderness, though no rebound.
1. Abdominal pain/vomiting: Now with probable DKA, though concern for underlying infection including cholecystitis given CT scan with stranding, gallstones and likely reactive hepatic flexure inflammation, in the setting of diabetes. Some of his
tachycardia and hypotension was likely A-fib related, though multifactorial and is overall improved. At this point will await ultrasound results. If also consistent with cholecystitis then would recommend surgery evaluation, though given his
comorbidities, dual antiplatelet etc. may need percutaneous cholecystostomy tube. Will continue antibiotics, antiemetics, PPI, glycemic control and supportive care.
Original Note:
Consultation
-
Date/Time Consultation Requested: 05/13/24 0631
Date/Time Consultation Performed: 05/13/24 0750
Requesting Provider: DARRIAN Bowser
Performing Provider: Dr. Mora/DARRIAN Jiang
Reason for Consultation: cholelithiasis
Medical History
Chief Complaint / HPI
Chief Complaint: right rib pain
History of Present Illness:
74-year-old male with past medical history CAD status post CABG x 3, PAD status post right BKA (01/26/2024), hypertension, hyperlipidemia, diabetes, CKD, kidney stones, Pseudomonas osteomyelitis presents to the emergency room with right-sided rib
pain. Asked to evaluate for cholelithiasis. The patient states that approximately >5 days ago he and his friend had a pasta with red sauce and both of them became ill with diarrhea they felt they both had 'food poisoning'. This lasted for
approximately 3 days. He took Pepto and Imodium with cessation of symptoms. He had lower abdominal cramping associated with this diarrhea. After that he also developed a right sided upper abdominal/rib discomfort that he describes as sharp and
dull, nonradiating, associated with nausea and vomiting that he describes the vomitus as light brown. Coughing made this discomfort worse. He could not eat or drink. He did not taken any oral intake therefore he only took his Lantus and did not
take his sliding scale insulin. He was having black stools at home but this happened after he took Pepto-Bismol. He has not had any bowel movements in over 2 days. He is on aspirin 81 mg and Plavix 75 mg at home. He does not take any other
NSAIDs. He uses Tylenol for discomfort however did not try this at home. Because of the progressive discomfort and weakness he proceeded to the emergency room for further evaluation. When he proceeded to the emergency room he was found to be in
A-fib with rapid ventricular response. This is a new diagnosis for him. He states that he could not tell that he was in this. He had no chest pain, no palpitations. He did have some mild shortness of breath. He denies any fevers, chills,
hematochezia, dysphagia or odynophagia. No unintentional weight loss. He has never had an endoscopy or colonoscopy before. No family history of gastrointestinal malignancy, IBD or liver issues. At the present time he is still having right upper
quadrant discomfort. Tmax 99.3, on presentation WBC 19.8, hemoglobin 11.7, hematocrit 33.2, platelets 234, lactic acid 2.9 that went down to 1.8. PT 17.0, INR 1.35, sodium 134, potassium 4.3, BUN 101, creatinine 4.1, glucose 398. Total bilirubin
0.6, AST 25, ALT 33, alk phos 126, troponin 0.106-> 0.098->0.086. Triglycerides 102, lipase 48. This morning white count improved to 15.9, hemoglobin 19.4, platelets 229, sodium 134, potassium 3.5, BUN 95, creatinine 2.7 blood sugar 118. Patient
currently on cefepime and Flagyl, heparin drip, Amio drip, lactated Ringer's infusion, Jhoan drip and bicarb drip as well as aspirin and Plavix. Blood cultures x 2 pending, urine culture pending. Patient has not had bowel movement. No active signs
of bleeding.
Past Medical History
Past Medical History: CAD, HTN, Hypercholesterolemia, IDDM and Other (Kidney stones, CKD, PAD, right heel dry gangrene, Pseudomonas osteomyelitis, cataracts)
Past Surgical History: Other (Right TMA amputation, right BKA (01/26/2024), lithotripsy, CABG x 3, appendectomy)
Social History
Tobacco: Non-Smoker
Alcohol: Occasional (1 beer every month or 2, approximately 10 years ago would drink a case of beer a week)
Drug: None
Personal: Single
Living: Alone
Employment: Retired
Family History
Family History: Other (No family history gastrointestinal malignancy or IBD)
Allergies / Home Medications
Allergy/AdvReac Type Severity Reaction Status Date / Time
No Known Allergies Allergy Verified 05/12/24 11:00
�Medication �Instructions �Recorded
oxycodone 5 mg tablet 5 mg PO Q4HPRN PRN mild pain #10 01/30/24
tabs
acetaminophen 325 mg tablet 650 mg (2 x 325 mg) PO Q4HPRN PRN 02/13/24
mild pain #90 tabs
amlodipine 2.5 mg tablet 2.5 mg PO DAILY #30 tabs 02/13/24
aspirin 81 mg chewable tablet 81 mg PO DAILY Blood Clot 02/13/24
Prevention/Tx #30 tabs
atorvastatin 40 mg tablet 40 mg PO DAILY High Cholesterol 02/13/24
#30 tabs
clopidogrel 75 mg tablet 75 mg PO DAILY #30 tabs 02/13/24
insulin glargine 100 unit/mL (3 17 unit (0.17 mL) SC HS Diabetes 02/13/24
mL) subcutaneous pen (Lantus #15 mL
Solostar U-100 Insulin)
metoprolol succinate 50 mg 50 mg PO NOON #30 tabs 02/13/24
tablet,extended release 24 hr
tamsulosin 0.4 mg capsule 0.4 mg PO HS #30 caps 02/13/24
cholecalciferol (vitamin D3) 25 25 mcg PO DAILY Supplement 05/12/24
mcg (1,000 unit) tablet
insulin lispro 100 unit/mL 7 sliding scale dose SC AC Diabetes 05/12/24
subcutaneous pen (Humalog KwikPen
(U-100) Insulin)
lidocaine 5 % topical patch 1 patch topical DAILYPRN PRN mild 05/12/24
pain
loperamide 2 mg tablet 2 mg PO TIDPRN PRN diarrhea 05/12/24
multivitamin with folic acid 400 1 tab PO DAILY Supplement 05/12/24
mcg tablet (Tab-A-Rafita)
trazodone 50 mg tablet 25 mg PO HS Sleep 05/12/24
Review of Systems
-
All other systems: A 12 pt ROS was Negative except as stated above in HPI
Vital Signs
Temp Pulse Resp BP Pulse Ox
99.1 F 149 26 112/58 95
05/13/24 00:15 05/13/24 06:30 05/13/24 06:30 05/13/24 06:30 05/13/24 07:27
Physical Exam
Exam
General: No Apparent Distress
HEENT: Anicteric
Respiratory: Clear (Anterior)
Cardiac: Irregular Rhythm (Tachycardic 140's)
GI: Soft, Non Distended, Normal Bowel Sounds and Tender (Right upper quadrant, pelvic)
Musculoskeletal: Other (Right BKA, left lower extremity without edema)
Skin: Warm and Dry
Neuro: AO x 3
Psych: Calm
Results
WBC 15.9 10^3/uL (4.8-10.8) H 05/13/24 04:26
Hgb 9.4 g/dL (13.0-18.0) L 05/13/24 04:26
Hct 25.9 % (39.0-52.0) L 05/13/24 04:26
MCV 82.0 fL (80.0-94.0) 05/13/24 04:26
Plt Count 229 10^3/uL (130-400) 05/13/24 04:26
Absolute Neuts (auto) 17.0 10^3/uL (1.4-6.5) H 05/12/24 11:18
PT 17.0 Sec (11.4-14.6) H 05/12/24 11:18
INR 1.35 05/12/24 11:18
APTT 69.9 Sec (23.4-35.0) H 05/13/24 04:26
Sodium 134 mmol/L (135-145) L 05/13/24 04:26
Potassium 3.5 mmol/L (3.5-5.1) 05/13/24 04:26
Chloride 106 mmol/L (98-107) 05/13/24 04:26
Carbon Dioxide 21 mmol/L (22-30) L 05/13/24 04:26
BUN 95 mg/dl (9-20) H 05/13/24 04:26
Creatinine 2.7 mg/dL (0.7-1.3) H 05/13/24 04:26
Calcium 7.4 mg/dl (8.4-10.2) L 05/13/24 04:26
Total Bilirubin 0.6 mg/dl (0.2-1.3) 05/12/24 11:18
AST 25 U/L (17-59) 05/12/24 11:18
ALT 33 U/L (0-50) 05/12/24 11:18
Alkaline Phosphatase 126 U/L (38-126) 05/12/24 11:18
Lipase 48 U/L (23-300) 05/13/24 04:26
Diagnostic Image Results:
Chest x-ray:
IMPRESSION:
Lungs appear slightly hypoinflated, with stable elevation right hemidiaphragm.
Patchy parenchymal opacity within the medial aspect of both lower lungs, likely atelectasis.
CT Chest/Abd/Pelvis with oral contrast:
Prior GI Procedures:
EGD: Never
Colonoscopy: Never
Assessment / Plan
-
74-year-old male with past medical history CAD status post CABG x 3, PAD status post right BKA (01/26/2024), hypertension, hyperlipidemia, diabetes, CKD, kidney stones, Pseudomonas osteomyelitis presents to the emergency room with right-sided rib
pain. Asked to evaluate for cholelithiasis. Leading up to this hospitalization patient seem to have 2 separate episodes of abdominal discomfort. First one was lower abdominal/pelvic cramping associated with diarrhea that his friend also had after
eating pasta and sauce. The patient took Pepto and Imodium with complete resolution of his diarrhea. Has not had any bowel movement since that time. This is now going on the fourth day. The patient did have black stools after Pepto-Bismol. He
then developed nausea/vomiting (light brown in color) with a right upper quadrant/rib pain with the inability to eat or drink for approximately 3 days. Therefore he only took his nighttime Lantus. He did have worse pain with coughing. This was
the pain that brought him into the hospital. Where he was found with A-fib RVR which is a new diagnosis for him. Patient was not symptomatic from this. He did not know or have any chest pain or palpitations. A mild shortness of breath was noted
by him, however he felt that it was because he was weak from his current GI symptoms. He did present with a leukocytosis with an elevated lactic acid that improved. He had normal LFTs. He is diabetic and prior hemoglobin A1c was 8.8, current A1c
pending. CT of the chest abdomen and pelvis with oral contrast only shows cholelithiasis with mild distention of the gallbladder and surrounding stranding concerning for acute cholecystitis.. Mild wall thickening along the hepatic flexure of the
colon, possibly reactive mild colitis. Bibasilar airspace opacities which likely represent atelectasis.
Impression:
Right upper quadrant pain/cholelithiasis
-Although patient with normal LFTs, does have leukocytosis, Tmax 99.3, pain, nausea/vomiting, and CT imaging with distention of the gallbladder and stranding as well as thickening along hepatic flexure of the colon, patient with history of diabetes
Diarrhea
-Greater than 5 days ago, likely food poisoning versus infectious as friend also got same illness
-Took Pepto-Bismol and Imodium with cessation, no bowel movement in now 4 days
Other diagnoses:
A-fib with RVR
Leukocytosis
Metabolic acidosis
Lactic acidosis
RAYMOND on CKD
Elevated troponin
Chronic anemia (appears at patient's baseline can run between 9 and 11) no signs of GI bleeding at present time. Patient did take Pepto-Bismol. Is on DAPT and now heparin gtt.
-- Patient also on IV fluids, appropriate dilutional response
-- Iron studies performed 08/2023 appear to be mixed with iron deficiency and anemia of chronic disease. Normal B12 and folate.
PAD status post right BKA on aspirin and Plavix
Plan:
-Check ultrasound of right upper quadrant rule out acute cholecystitis. If patient with acute cholecystitis would likely need interventional radiology for PERC cholecystostomy drain.
-Await blood and urine cultures
-Continue current antibiotics
-Would add pantoprazole for GI prophylaxis given heparin drip, aspirin and Plavix
-Trend CBC, BMP, repeat LFTs (although may elevate given low blood pressure)-> episodes of BP 67/50, 71/48 etc, currently on neodrip stable BP 121/59.
-As per internal medicine, cardiology, pulm crit. Nephrology consult pending.
-Further recommendations to be forthcoming
-
-
Thank you for consultation and allowing me to participate in the patient's care. Please call the nurse liaison GI physician during the after hours with any questions or concerns.
--- NOTE | 2024-05-13 09:03 | PTCARENOTE ---
pt converted back to sinus rhythm with pvcs rate 90-100s.
--- NOTE | 2024-05-13 09:58 | W.PN.CARDCBS ---
Today's Communication / Plan
-
Converted to sinus AM May 13.
Continue rate control strategy for atrial fibrillation for now given DKA and heart rates improved off beta-amry therapy.
Hypotension currently precludes resuming beta-mary therapy
IV heparin anticoagulation given elevated [id number] score in the setting of atrial fibrillation
He was started on IV Amiodarone by primary service, continue as maintaining sinus rhythm
Resume beta mary once off pressors
Discussed eventual transition to oral anticoagulation. He currently appears reluctant to consider this. He understands a significant stroke risk and elevated [id number] score. Will continue to review this with him
For hypotension, wean Levophed as able.
Patient receiving IV fluids, volume resuscitation
Amlodipine and metoprolol held in setting of hypotension
Monitor creatinine with fluid resuscitation, improving currently 2.7 on 05/13.
Echocardiogram pending to reevaluate left ventricular systolic function. Prior echo reviewed
Troponin peaked at 0.1, medical therapy for now for non-[place] troponin
Continue dual antiplatelet therapy likely for recent BKA peripheral arterial disease. Would review with vascular regarding duration of Plavix therapy.
Impression / Plan
-
.
Primary stonework tracer: Dr. Jony Rojas
Primary care physician, Dr. Gene Banks
Impression:
DKA
Acute on chronic renal failure
Hypotension
Paroxysmal atrial fibrillation with RVR
Leukocytosis
Non-[place] troponin elevation, 0.1 peak
Anemia with history of anemia
Hx CABG x 3 VALIENTE to LAD and sequential vein graft to OM and right PLB 2014
Diabetes mellitus type 2
Right bundle branch block
Hyperlipidemia
Peripheral arterial disease
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
History noncompliance
LVH
Echo July 2014: EF 55% with moderate LVH and no significant valvular disease.
Plan:
Converted to sinus AM May 13.
Continue rate control strategy for atrial fibrillation for now given DKA and heart rates improved off beta-mary therapy.
Hypotension currently precludes resuming beta-mary therapy
IV heparin anticoagulation given elevated [id number] score in the setting of atrial fibrillation
He was started on IV Amiodarone by primary service, continue as maintaining sinus rhythm
Resume beta mary once off pressors
Discussed eventual transition to oral anticoagulation. He currently appears reluctant to consider this. He understands a significant stroke risk and elevated [id number] score. Will continue to review this with him
For hypotension, wean Levophed as able.
Patient receiving IV fluids, volume resuscitation
Amlodipine and metoprolol held in setting of hypotension
Monitor creatinine with fluid resuscitation, improving currently 2.7 on 05/13.
Echocardiogram pending to reevaluate left ventricular systolic function. Prior echo reviewed
Troponin peaked at 0.1, medical therapy for now for non-[place] troponin
Continue DKA treatment as per primary service and lifestyle director.
Leukocytosis, improving, workup and evaluation for infection as per primary service.
GI evaluating and getting RUQ u/s.
Continue dual antiplatelet therapy likely for recent BKA peripheral arterial disease. Would review with vascular regarding duration of Plavix therapy.
Discussed with nursing
CCT: 33 min
Progress Note - Marketing Proposal Specialist
Subjective
Date of Service: May 13, 2024
Pt seen and examined. No complaints. No chest pain or shortness of breath.
Objective
Labs:
05/13/24 04:26
Labs
Hgb 9.4 g/dL (13.0-18.0) L 05/13/24 04:26
Hct 25.9 % (39.0-52.0) L 05/13/24 04:26
Plt Count 229 10^3/uL (130-400) 05/13/24 04:26
PT 17.0 Sec (11.4-14.6) H 05/12/24 11:18
INR 1.35 05/12/24 11:18
APTT 69.9 Sec (23.4-35.0) H 05/13/24 04:26
Sodium 134 mmol/L (135-145) L 05/13/24 04:26
Potassium 3.5 mmol/L (3.5-5.1) 05/13/24 04:26
BUN 95 mg/dl (9-20) H 05/13/24 04:26
Creatinine 2.7 mg/dL (0.7-1.3) H 05/13/24 04:26
Glucose 118 mg/dl (70-99) H 05/13/24 04:26
Troponins
05/12/24 05/12/24 05/13/24
11:18 22:09 04:26
Troponin I 0.106 H* 0.098 H* 0.086 H*
05/13/24
05:00
Troponin I Cancelled
Vital Signs and I&O:
Vital Signs
Temp Pulse Resp BP Pulse Ox
98.3 F 104 25 121/59 97
05/13/24 08:30 05/13/24 09:00 05/13/24 09:00 05/13/24 09:00 05/13/24 09:00
Vital Signs
Temp Pulse Resp BP Pulse Ox
98.3 F 104 25 121/59 97
05/13/24 08:30 05/13/24 09:00 05/13/24 09:00 05/13/24 09:00 05/13/24 09:00
Intake & Output
05/11/24 05/12/24 05/13/24 05/14/24
06:59 06:59 06:59 06:59
Intake Total 3901.45 / 4196.25 1884.4 / 1884.4
Output Total 1050 / 1050 300 / 300
Balance 2851.45 / 3146.25 1584.4 / 1584.4
Physical Exam
Physical Exam
General: No acute distress, AAOX3
Neck: Negative JVD
Heart: Regular, Negative S3 positive S1/S2, Negative S4, No murmur
Lungs: CTA b/l, negative wheezes/rales/rhonchi
Abd: Positive BS, NT/ND, neg rebound/rigidity/guarding
Ext: Right BKA, left LE: negative cyanosis/clubbing/edema
Neuro: nonfocal
--- NOTE | 2024-05-13 10:16 | W.CON.NEPH ---
Consultation
-
Date/Time Consultation Requested: 1647
Date/Time Consultation Performed: 05/13/24 1000
Requesting Provider: Trey Croft
Performing Provider: Jaki Daly
Reason for Consultation: RAYMOND
Medical History
-
Chief Complaint: Weakness
History of Present Illness:
74 year old male with PMH of CAD s/p CABG, uncontrolled diabetes on Insulin, CAD status post CABG �3 on aspirin and Plavix, hyperlipidemia on statin, CKD3b baseline creatinine of 1.4-1.7 felt to be diabetic nephropathy, hypertension on metoprolol
and amlodipine, K stone, PAD s/p right BKA 01/2024 who presented to the ER on 05/12 With complaints of generalized weakness, nausea. Also with right-sided Abdominal pain with decreased oral intake for last 5 days. since he was not eating and was
only using Lantus. She noted to be hypotensive requiring vasopressors and also DKA. also noted to be A. fib with RVR which is new started on Amio gtt. Creatinine on admission was that 4.2, bun 101, bicarb 14 currently improving to 2.7, bun 95
with IV fluids, metabolic acidosis also improved. Nephrology asked to evaluate RAYMOND. She denies following any financial institution manager as outpatient. He is a poor historian. Most of the history is up into the chart. He denies any fevers. No chest pain or
shortness of breath. He does complain about having issues with urinary retention, required Bosch catheter placement and previous admissions. Reports currently no dysuria or hematuria. No fever or coughing. CT chest abdomen pelvis without
contrast shows concern of cholecystitis. No hydronephrosis.
Past Medical History
CAD/Cabg x 3 vessel
HTN
HLD
DM2
Renal calculi
CKD3b
PAD, s/p rt bka
cataracts
BPH
Past Surgical History: Other (CABG x3 vessel appendectomy, Right TMA amputation, right BKA (01/26/2024), lithotripsy,)
Social History
Tobacco: Non-Smoker
Alcohol: Occasional
Drug: None
Personal: Single
Living: Alone
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
Family History
Mother with DM
brother with K stone
no known ckd
Allergies / Home Medications
Allergy/AdvReac Type Severity Reaction Status Date / Time
No Known Allergies Allergy Verified 05/12/24 11:00
�Medication �Instructions �Recorded �Confirmed �Type
oxycodone 5 mg tablet 5 mg PO Q4HPRN PRN mild pain #10 01/30/24 01/30/24 Rx
tabs
acetaminophen 325 mg tablet 650 mg (2 x 325 mg) PO Q4HPRN PRN 02/13/24 05/12/24 Rx
mild pain #90 tabs
amlodipine 2.5 mg tablet 2.5 mg PO DAILY #30 tabs 02/13/24 05/12/24 Rx
aspirin 81 mg chewable tablet 81 mg PO DAILY Blood Clot 02/13/24 05/12/24 Rx
Prevention/Tx #30 tabs
atorvastatin 40 mg tablet 40 mg PO DAILY High Cholesterol 02/13/24 05/12/24 Rx
#30 tabs
clopidogrel 75 mg tablet 75 mg PO DAILY #30 tabs 02/13/24 05/12/24 Rx
insulin glargine 100 unit/mL (3 17 unit (0.17 mL) SC HS Diabetes 02/13/24 05/12/24 Rx
mL) subcutaneous pen (Lantus #15 mL
Solostar U-100 Insulin)
metoprolol succinate 50 mg 50 mg PO NOON #30 tabs 02/13/24 05/12/24 Rx
tablet,extended release 24 hr
tamsulosin 0.4 mg capsule 0.4 mg PO HS #30 caps 02/13/24 05/12/24 Rx
cholecalciferol (vitamin D3) 25 25 mcg PO DAILY Supplement 05/12/24 05/12/24 History
mcg (1,000 unit) tablet
insulin lispro 100 unit/mL 7 sliding scale dose SC AC Diabetes 05/12/24 05/12/24 History
subcutaneous pen (Humalog KwikPen
(U-100) Insulin)
lidocaine 5 % topical patch 1 patch topical DAILYPRN PRN mild 05/12/24 05/12/24 History
pain
loperamide 2 mg tablet 2 mg PO TIDPRN PRN diarrhea 05/12/24 05/12/24 History
multivitamin with folic acid 400 1 tab PO DAILY Supplement 05/12/24 05/12/24 History
mcg tablet (Tab-A-Rafita)
trazodone 50 mg tablet 25 mg PO HS Sleep 05/12/24 05/12/24 History
Review of Systems
-
All other systems: Negative unless noted
Physical Exam
Vital Signs
Vital Signs
Temp Pulse Resp BP Pulse Ox
98.3 F 104 25 121/59 97
05/13/24 08:30 05/13/24 09:00 05/13/24 09:00 05/13/24 09:00 05/13/24 09:00
Lab Results
WBC 15.9 10^3/uL (4.8-10.8) H 05/13/24 04:26
RBC 3.16 10^6/uL (4.70-6.10) L 05/13/24 04:26
Hct 25.9 % (39.0-52.0) L 05/13/24 04:26
Plt Count 229 10^3/uL (130-400) 05/13/24 04:26
Sodium 134 mmol/L (135-145) L 05/13/24 04:26
Potassium 3.5 mmol/L (3.5-5.1) 05/13/24 04:26
Chloride 106 mmol/L (98-107) 05/13/24 04:26
Carbon Dioxide 21 mmol/L (22-30) L 05/13/24 04:26
BUN 95 mg/dl (9-20) H 05/13/24 04:26
Creatinine 2.7 mg/dL (0.7-1.3) H 05/13/24 04:26
eGFR 24.13 05/13/24 04:26
Glucose 118 mg/dl (70-99) H 05/13/24 04:26
Calcium 7.4 mg/dl (8.4-10.2) L 05/13/24 04:26
Phosphorus 2.8 mg/dl (2.5-4.5) 05/13/24 04:26
Physical Exam
General: Awake, Alert, Oriented, AOx3, No Distress and Nontoxic
HEENT: EOMI, Anicteric, Facial Symmetry and No JVD
Respiratory: Clear, Normal Excursion and Nonlabored Respirations
Cardiac: S1/S2 and Other (irregular)
Abdomen: Soft, Nontender and Nondistended
Musculoskeletal: No Cyanosis, No Edema and Other (right BKA stump)
Skin: No Rash
Neuro: Nonfocal/Grossly Intact
Psych: Mood/afflect pleasant and Appropriate
Data Reviewed
-
Radiology: Report Reviewed by me and Discussed with Patient
Labs: Labs Reviewed by me and Discussed with Patient
Assessment/Plan
-
IMP:
DKA
RAYMOND with CKD stage 3b baseline cr 1.4-1.7
Hypotension/?septic shock
suspected cholecystitis on CT
AFib with RVR
Elevated TPNI : NIMI
BPH
H/o U retention
Hypoantremia
Hypokalemia
hypocalcemia
Hypoalbuminemia
HLD
CAD s/p CABG
PAD Rt BKA
Renal calculi
Anemia of chronic disease
DM type 2 with circulatory complications
Non compliance
Plan:
A/w abd pain, CT concern of cholecystitis and noted hypotension on pressors and DKA
RAYMOND-highly suspect prerenal, cr improving from peak at 4.2 to 2.7, non oliguric
however seem to have high PVR-monitor, low threshold for bosch , no hydro on CT
UA mild microhematuria and 2+alb-check U PCR
met acidosis improved, repeat labs this pm and adjust IVF
replace k, mg and johnny
no emergent indication of HD
avoid nephrotoxins
titrate pressors to keep MAP>65
Afib with RVR on Amio gtt and heparin gtt
await abd US , GI follows, abx per primary
d/w pt
he will benefit from following nephro out pt
--- NOTE | 2024-05-13 10:24 | PTCARENOTE ---
bicarb gtt stopped per. Dr. Starks. pt contact updated. ultrasound at bedside.
--- NOTE | 2024-05-13 10:41 | PN.DE.MGMTRT ---
Insulin Management
- -
05/13/2024: Diabetes Management Consult
74 year old male who p/w right-sided rib pain. When EMS arrived his blood pressure was low and blood glucose was 477.
PMH: ASCVD, CAD s/p CABG x 3, HTN, HLD, CKD IIIb, REGGIE, Anemia of CKD, PAD s/p right BKA, hypercholesterolemia and DM type II.
Patient known to diabetes team from multiple admissions. 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 Prior to admission was taking Lantus 17 units @
hs and Humalog 7 units with meals. Last A1C was 8.8% in December 2023, current A1C 7.7%. Cr 2.7, eGFR 24.13.
Pt awake, alert, resting in bed, c/o abd pain, otherwise, feels well, able to discuss diabetes mgt. Family at bedside.
Was on glycemic protocol overnight glucose range 98 to 178, requiring 1.5 units of insulin/hr.
Insulin infusion was turned off when glucose dropped down to 98 @4AM. Last POC was 178, trended up to 228 just now. Pt remains NPO
Discussed with Nurse and ICU Rounding team to resume Insulin infusion drip at this time per glycemic protocol.
Will cont to follow and reassess for readiness to transition off insulin infusion to SQ insulin.
Diabetes History
- -
Type of Diabetes: 2 requiring insulin
Pre-Admission Diabetes Regimen
05/12/24 05/12/24 05/12/24
11:18 13:02 14:21
Creatinine 4.1 H* 4.2 H* 3.9 H
05/12/24 05/12/24 05/12/24
16:00 16:20 20:00
Creatinine Cancelled 3.0 H Cancelled
05/12/24 05/13/24
22:09 04:26
Creatinine 3.3 H 2.7 H
Insulin Pump Settings
IP Diabetes Regimen
05/12/24 05/12/24 05/12/24
11:17 11:18 13:02
Glucose 398 H 392 H
POC Glucose 402 H
05/12/24 05/12/24 05/12/24
14:21 14:31 15:23
Glucose 363 H
POC Glucose 340 H 377 H
05/12/24 05/12/24 05/12/24
16:00 16:20 16:28
Glucose Cancelled 254 H
POC Glucose 363 H
05/12/24 05/12/24 05/12/24
17:15 18:00 18:59
Glucose
POC Glucose 278 H 285 H 216 H
05/12/24 05/12/24 05/12/24
20:00 20:03 21:01
Glucose Cancelled
POC Glucose 245 H 184 H
05/12/24 05/12/24 05/12/24
22:07 22:09 23:03
Glucose 148 H
POC Glucose 175 H 149 H
05/13/24 05/13/24 05/13/24
00:04 01:05 02:01
Glucose
POC Glucose 132 H 130 H 133 H
05/13/24 05/13/24 05/13/24
04:17 04:26 06:21
Glucose 118 H
POC Glucose 98 178 H
Patient Education
[2024-05-13 10:43] LABS: Glycohemoglobin (HgbA1c) 7.7 % (4.0-5.6)
--- NOTE | 2024-05-13 11:00 | CARDSERVLU ---
Echocardiogram with Lumason completed after protocol screening completed. Allergies verified.
Patent IV site: __Rt FA__
IV site flushed with 0.9% NaCl pre and post administration.
Diluted bolus method utilized to enhance visualization of ventricular sifuentes.
Total volume given: ___2.0_ mL
Patient tolerated all procedures well without complications.
[2024-05-13 11:02] LABS: ALT (SGPT) 44 U/L (0-50); AST (SGOT) 42 U/L (17-59); Albumin 2.3 g/dl (3.5-5.0); Alkaline Phosphatase 118 U/L (38-126); Direct Bilirubin 0.3 mg/dl (0.0-0.4); Total Bilirubin 0.4 mg/dl (0.2-1.3); Total Protein 4.7 g/dl (6.3-8.2)
[2024-05-13] MEDS: PROTONIX IV 40 MG IV (11:08)
[2024-05-13] MEDS: PLAVIX 75 MG PO (11:08)
[2024-05-13] MEDS: LOW STRENGTH ASPIRIN 81 MG PO (11:08)
[2024-05-13] MEDS: LIPITOR 40 MG PO (11:08)
[2024-05-13] MEDS: NSS (PRESERVATIVE FREE) 10 ML IV (11:08)
[2024-05-13 11:31] LABS: APTT 83.5 Sec (23.4-35.0)
[2024-05-13] MEDS: HEPARIN 25000 UNITS/250 ML IV (11:50)
[2024-05-13] MEDS: NOVOLOG FLEXPEN-MODERATE RESISTANCE 3 UNITS SC (11:54)
--- NOTE | 2024-05-13 11:54 | W.PN.HOSP.TC ---
Today's Communication/Plan
-
see plan
Assessment / Plan
Assessment / Plan
Gen: NAD, AAOx3.
Eyes: EOMI, PERRLA, no scleral icterus.
Neck: supple.
CV: irreg/irreg, +S1/S2, no m/r/g.
Resp: CTAB, no rales, wheezes, or rhonchi.
Abd: +BS, soft, NT, ND
Skin: No rashes.
Neuro: CN 2-12 intact, non-focal.
Psych: Normal mood and affect.
05/12/24 11:51 Blood/Venous Blood Culture - Preliminary
No Growth in 24 hours- Final report to follow
05/12/24 11:51 Blood/Venous Blood Culture - Preliminary
No Growth in 24 hours- Final report to follow
05/12/24 13:02 Urine Urine Culture - Final
NO GROWTH
CT C/A/P: Cholelithiasis with mild gallbladder distention and surrounding stranding concerning for acute cholecystitis. Recommend correlation with right upper quadrant ultrasound. There is mild wall thickening along the hepatic flexure, possibly
reactive mild colitis. Bibasilar airspace opacities which likely represent atelectasis.
Acute diabetic ketoacidosis:
-Due to insulin noncompliance due to abdominal pain due to acute cholecystitis
-RAYMOND on CKD3b due to volume contraction due to DKA and hypotension due to septic shock, POA
-aggressive IVFs
-AG now closed, insulin gtt off
-SSI/accuchecks
Septic shock due to acute cholecystitis:
-CT above
-RUQ U/S pending
-cont Cefepime/Flagyl
-BCxs NGTD
-Acute nonischemic myocardial injury due to septic shock
-Was on Levophed, now on Jhoan-Synephrine
-c/s surgery
Afib with RVR:
-converted to SR 05/13/24AM
-cont amio/heparin gtts
Other problems:
HLD: cont statin
Essential HTN: holding home antihypertensives
PAD: cont statin/ASA/Plavix
R BKA
Renal calculi
Patient's updated at bedside
Total critical care time spent = 40 min
Anticipated Discharge: > 48 hours
Subjective/Interval History
-
Date of Service: May 13, 2024
Reports right-sided abdominal pain.
Objective Data
-
Labs:
Laboratory Results
05/13/24 05/13/24 05/13/24
04:26 04:28 11:12
WBC 15.9 H
Hgb 9.4 L
Hct 25.9 L
Plt Count 229
APTT 69.9 H 83.5 H
HCO3 19.9 L
Sodium 134 L
Potassium 3.5
Chloride 106
Carbon Dioxide 21 L
BUN 95 H
Creatinine 2.7 H
Glucose 118 H
Calcium 7.4 L
Total Bilirubin 0.4
AST 42
ALT 44
Alkaline Phosphatase 118
05/13/24 05/13/24 05/13/24
14:00 15:00 17:45
WBC
Hgb Pending
Hct
Plt Count
APTT Pending
HCO3
Sodium Pending
Potassium Pending
Chloride Pending
Carbon Dioxide Pending
BUN Pending
Creatinine Pending
Glucose Pending
Calcium Pending
Total Bilirubin
AST
ALT
Alkaline Phosphatase
Vital Signs:
Vital Signs
Temp Pulse Resp BP Pulse Ox
98.3 F 96 19 121/61 94
05/13/24 08:30 05/13/24 11:00 05/13/24 11:00 05/13/24 11:00 05/13/24 11:00
I&O
05/12/24 05/13/24 05/14/24
06:59 06:59 06:59
Intake Total 3901.45 / 4196.25 2024. /
Output Total 1050 / 1050 300 / 300
Balance 2851.45 / 3146.25 172. / 1724.
--- NOTE | 2024-05-13 11:59 | PTCARENOTE ---
ronan weaned off. amio and heparin gtts continue. pt assessment unchanged.
--- NOTE | 2024-05-13 12:48 | CM ---
CM following re: discharge planning.
Discussed in Rounds, reviewed t's chart, met with pt and pt's friend at bedside.
Pt is a 74 year old male, admitted with primary dx of Septic shock due to acute cholecystitis.
Pt reports he [place], 3 steps to enter, has no family, has supportive friend, friend Nisha Figueroa has POA. Pt reports he ambulates with a walker, has a wheelchair, went to [facility] in January 2024. Pt stated he supposed to
receive his prosthetic leg and he will need to go to [facility] for training.
CM spoke to [facility] technician and she is working on accepting pt to [facility] [place] location.
A referral to [facility] made.
PCP: Gene Banks
Pharmacy: [facility].
D/C plan: [facility] for prosthetic leg training.
CM will follow with discharge plan updates as hospitalization progresses
--- NOTE | 2024-05-13 12:54 | CON.GS ---
Addendum entered and electronically signed by Michi Mcfadden MD 05/13/24 13:58:
I saw and examined the patient independently.
The Personal Care Aid's note was reviewed and I agree with the note, assessment and plan except where noted below.
Comment: This is a 74-year-old male, poor historian with known poorly controlled diabetic, PAD status post right BKA, CKD, CAD status post CABG, remote open appendectomy who presented to the ED yesterday for 5 to 6 days of some 'right rib pain' and
lower abdominal pain. Endorses nausea vomiting as well as diarrhea and poor blood sugar control. Eventually his abdominal pain became too great that he decided to come in to be evaluated. He underwent CT chest abdomen pelvis which was concerning
for acute cholecystitis. He was given aspirin and Plavix this morning, he also briefly went into atrial fibrillation and started on heparin drip. An ultrasound was performed today which demonstrates on my read cholelithiasis as well as thickening
of the gallbladder. He was briefly on pressors but is now off of them. He is not tender to palpation in the right upper quadrant, but most of his pain is actually in the left lower quadrant.
High suspicion for acute calculus cholecystitis.
Continue IV antibiotics, follow-up blood cultures.
Will obtain a HIDA scan today.
Okay for clears after his imaging study. Of note, his last p.o. intake was 6 days ago.
Will plan for an IR consult and possible percutaneous cholecystostomy tube
Please hold aspirin/Plavix. Okay for continued heparin drip, will likely need to hold prior to any possible intervention.
Plan of care discussed with patient, all questions answered. He is agreeable to the plan of care above.
I spent 70 minutes in total for the care of this patient today including direct patient care and counseling, reviewing labs, imaging, coordination of care, as well as documentation.
Original Note:
Consultation
-
Date/Time Consultation Performed: 05/13/24 1300
Performing Provider: Alondra Mcfadden
Reason for Consultation: acute cholecystitis
Medical History
-
Chief Complaint: Abdominal pain
History of Present Illness:
74 yo male with a h/o DM, PAD with multiple admissions in 2023 for right foot infection s/p balloon angioplasty x2, TMA and eventual BKA, CKD, CAD s/p CABG and appendectomy who presented through the ED yesterday generally feeling unwell with right
rib pain and lower abdominal pain. He is overall a poor historian. He notes that about 5 days ago, after dining with a friend they both became ill with diarrhea and he had some vomiting of yellow emesis. He has generally felt unwell since with
ongoing discomfort in his lower abdomen and right side. He has not had a bm in several days after taking antidiarrheals during this initial incident. On exam, he has some tenderness to the LLQ but none to the RUQ although when pressed says it is a
bit uncomfortable still but much better than before. He denies fevers or chils. He denies pain to the right side after eating meals previously.
Past Medical History
Past Medical History: CAD, HTN, Hypercholesterolemia, NIDDM, Renal Failure (ckd) and Other (PVD, Insulin nonadherance)
Past Surgical History: Appendectomy, Cardiac (CABG x3, Balloon angiography to RLE 09/2023 and 11/2023), Orthopedic (Right TMA 09/2023, Right BKA 01/2024) and Other (Right foot debridements)
Social History
Tobacco: Non-Smoker
Alcohol: Occasional
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
Family History
Family History: Reviewed & Not Pertinent
Allergies / Home Medications
Allergy/AdvReac Type Severity Reaction Status Date / Time
No Known Allergies Allergy Verified 05/12/24 11:00
�Medication �Instructions �Recorded �Confirmed �Type
oxycodone 5 mg tablet 5 mg PO Q4HPRN PRN mild pain #10 01/30/24 01/30/24 Rx
tabs
acetaminophen 325 mg tablet 650 mg (2 x 325 mg) PO Q4HPRN PRN 02/13/24 05/12/24 Rx
mild pain #90 tabs
amlodipine 2.5 mg tablet 2.5 mg PO DAILY #30 tabs 02/13/24 05/12/24 Rx
aspirin 81 mg chewable tablet 81 mg PO DAILY Blood Clot 02/13/24 05/12/24 Rx
Prevention/Tx #30 tabs
atorvastatin 40 mg tablet 40 mg PO DAILY High Cholesterol 02/13/24 05/12/24 Rx
#30 tabs
clopidogrel 75 mg tablet 75 mg PO DAILY #30 tabs 02/13/24 05/12/24 Rx
insulin glargine 100 unit/mL (3 17 unit (0.17 mL) SC HS Diabetes 02/13/24 05/12/24 Rx
mL) subcutaneous pen (Lantus #15 mL
Solostar U-100 Insulin)
metoprolol succinate 50 mg 50 mg PO NOON #30 tabs 02/13/24 05/12/24 Rx
tablet,extended release 24 hr
tamsulosin 0.4 mg capsule 0.4 mg PO HS #30 caps 02/13/24 05/12/24 Rx
cholecalciferol (vitamin D3) 25 25 mcg PO DAILY Supplement 05/12/24 05/12/24 History
mcg (1,000 unit) tablet
insulin lispro 100 unit/mL 7 sliding scale dose SC AC Diabetes 05/12/24 05/12/24 History
subcutaneous pen (Humalog KwikPen
(U-100) Insulin)
lidocaine 5 % topical patch 1 patch topical DAILYPRN PRN mild 05/12/24 05/12/24 History
pain
loperamide 2 mg tablet 2 mg PO TIDPRN PRN diarrhea 05/12/24 05/12/24 History
multivitamin with folic acid 400 1 tab PO DAILY Supplement 05/12/24 05/12/24 History
mcg tablet (Tab-A-Rafita)
trazodone 50 mg tablet 25 mg PO HS Sleep 05/12/24 05/12/24 History
Review of Systems
-
History Source: Patient and Family
All other systems: Negative unless noted
A 10 point review of systems was completed, and was negative except as per HPI.
Physical Exam
Vital Signs
Temp Pulse Resp BP Pulse Ox
98.3 F 96 19 121/61 94
05/13/24 08:30 05/13/24 11:00 05/13/24 11:00 05/13/24 11:00 05/13/24 11:00
05/12/24 05/13/24 05/14/24
06:59 06:59 06:59
Actual Weight 86.6 kg
Body Mass Index (BMI) 23.9
Lab Results
WBC 15.9 10^3/uL (4.8-10.8) H 05/13/24 04:26
Hgb 9.4 g/dL (13.0-18.0) L 05/13/24 04:26
Hct 25.9 % (39.0-52.0) L 05/13/24 04:26
Plt Count 229 10^3/uL (130-400) 05/13/24 04:26
Abs Immat Gran (auto) 0.2 10^3/uL (0-0.05) H 05/12/24 11:18
Neutrophils % 86.0 % (42.2-75.2) H 05/12/24 11:18
Physical Exam
General: Well Developed and Well Nourished
HEENT: Moist Mucous Membranes
Respiratory: Non Labored Respirations
GI: Soft, Non Distended and Tender (LLQ)
Musculoskeletal: Other (right BKA)
Skin: Warm and Dry
Neuro: Awake, Alert and AO x 3
Psych: Calm
Data Reviewed
-
CT Scan: Image Personally Visualized and interpreted, Report Reviewed by me, Discussed with Physician, Discussed with Nurse and Discussed with Patient
Ultrasound: Image Personally Visualized and interpreted, Discussed with Physician and Discussed with Patient
Labs: Labs Reviewed by me, Discussed with Physician, Discussed with Nurse and Discussed with Patient
Old Records: Reviewed
Assessment / Plan
-
74 yo male with a h/o DM, PAD with multiple admissions in 2023 for right foot infection s/p balloon angioplasty x2, TMA and eventual BKA, CKD, CAD s/p CABG and appendectomy who presents with approx 5 day history of abdominal pain to the lower abd
and right side. Evaluated today in the ICU where he was placed for management of DKA and rapid afib currently on DAPT and Heparin gtt on abx since presentation. CT imaging cholelithiasis and mild distention with inflammatory stranding consistent
with acute cholecystitis. US done in follow up which is not read yet, but correlating to CT findings upon personal review. He is nontender to the RUQ currently but with some pain to the llq. No fever/chills. Vitals currently stable.
--Hold DAPT, last dose of both was today
--Check HIDA to further evaluate for cholecystitis given his lack of tenderness/pain
--If HIDA positive will likely need percutaneous cholecystostomy. Very high risk for bleeding with operative intervention at this time.
--Continue IV abx
[2024-05-13] MEDS: LR 1000 IV ×2 (12:57→23:39)
[2024-05-13] MEDS: NOVOLIN R INSULIN INFUSION 100 IV (12:57)
[2024-05-13 13:15] LABS: Glucose - Point of Care 228 mg/dl (70-99)
[2024-05-13 14:16] LABS: Glucose - Point of Care 245 mg/dl (70-99)
[2024-05-13 14:25] LABS: Glucose - Point of Care 220 mg/dl (70-99)
--- NOTE | 2024-05-13 15:08 | VATNOTE ---
Per radiology report, PICC in good position with tip in the SVC. PCN notified PICC OK to use, instructed to remove all ipsilateral IVs and change all IV tubing prior to connecting to PICC line.
[2024-05-13 15:36] LABS: Glucose - Point of Care 224 mg/dl (70-99)
--- NOTE | 2024-05-13 16:00 | PTCARENOTE ---
1548 vital signs prior to HIDA scan/morphine administration Temp 99.3 HR 94 RR 19, Bp 111/51, 94% on room air. 2mg morphine IV given as per order via IV left arm. Vital signs after medication HR 97, RR 22, Bp 114/71, 94% room air.
[2024-05-13 16:46] LABS: Glucose - Point of Care 176 mg/dl (70-99)
[2024-05-13 17:08] LABS: Hemoglobin 9.3 g/dL (13.0-18.0)
[2024-05-13 17:09] LABS: APTT 93.7 Sec (23.4-35.0)
--- NOTE | 2024-05-13 17:10 | PTCARENOTE ---
pt taken to nuc med for hyda scan- pt remains on insulin gtt, hep, amio and ivf. right picc placed by iv team- ok to use. both lumens flush with good blood return. labs sent as per order. pt continues to turn and reposition self, assisted with pm
care. assessment unchanged further.
[2024-05-13 17:26] LABS: Blood Urea Nitrogen 88 mg/dl (9-20); Calcium 7.3 mg/dl (8.4-10.2); Carbon Dioxide 20 mmol/L (22-30); Chloride 104 mmol/L (98-107); Estimated Creatinine Clearance 34 ml/min; Glucose 146 mg/dl (70-99); Potassium 3.5 mmol/L (3.5-5.1); Sodium 132 mmol/L (135-145); eGFR 29.25
[2024-05-13 17:43] LABS: Glucose - Point of Care 187 mg/dl (70-99)
[2024-05-13] MEDS: KCL 40 MEQ PO (18:27)
[2024-05-13 18:39] LABS: Glucose - Point of Care 140 mg/dl (70-99)
[2024-05-13 19:45] LABS: Glucose - Point of Care 135 mg/dl (70-99)
--- NOTE | 2024-05-13 20:00 | PTCARENOTE ---
Pt received from previous RN. VSS. AAOx3, drowsy, forgetful at times. Pt is NSR w/ PVC's. Lung sounds are diminished at the bases, SaO2 94 % RA. Occasional dry cough. Abd round and tender to palpation. javier urine. Heparin, IVF, Jhoan, and Amio gtt
infusion per order. Rt BKA. Pt appears comfortable in bed and call abbott within reach.
[2024-05-13 21:54] LABS: Glucose - Point of Care 109 mg/dl (70-99)
[2024-05-13] MEDS: FLOMAX 0.4 MG PO (22:39)
[2024-05-13 22:54] LABS: Glucose - Point of Care 124 mg/dl (70-99)
[2024-05-13 23:56] LABS: Glucose - Point of Care 118 mg/dl (70-99)
[2024-05-14] VITALS (57 sets, daily range): BP systolic 62–158; BP diastolic 33–92; BMI 24.6
--- NOTE | 2024-05-14 00:31 | PTCARENOTE ---
Amio,IVF, Heparin and Insulin remain infusing, see protocol. AAox3, forgetful at times. Pt had a black/brown liquid BM. Occult blood test done and was positive. Will cont w/ tx plan.
[2024-05-14] MEDS: CORDARONE 518 MG IV (00:51)
[2024-05-14 00:54] LABS: Glucose - Point of Care 133 mg/dl (70-99)
[2024-05-14] MEDS: STERILE WATER FOR INJECTION 10 ML IV ×3 (01:02→17:00)
[2024-05-14] MEDS: MAXIPIME 1000 MG IV ×3 (01:02→17:00)
[2024-05-14] MEDS: FLAGYL 500 MG 100 IV ×3 (01:03→17:00)
[2024-05-14 01:59] LABS: Glucose - Point of Care 136 mg/dl (70-99)
[2024-05-14 04:00] LABS: Glucose - Point of Care 142 mg/dl (70-99)
[2024-05-14 04:10] LABS: Hematocrit 24.4 % (39.0-52.0); Hemoglobin 8.7 g/dL (13.0-18.0); Mean Corp Hgb Conc. 35.7 g/dL (33.0-37.0); Mean Corpuscular Hgb 29.5 pg (27.0-31.0); Mean Corpuscular Volume 82.7 fL (80.0-94.0); Mean Platelet Volume 9.6 fL (7.4-10.4); Platelet Count 227 10^3/uL (130-400); Red Blood Cell Count 2.95 10^6/uL (4.70-6.10); Red Cell Dist. Width 14.6 % (11.5-14.5); White Blood Cell Count 15.2 10^3/uL (4.8-10.8)
[2024-05-14 04:16] LABS: APTT 117.2 Sec (23.4-35.0)
--- NOTE | 2024-05-14 04:20 | PTCARENOTE ---
Addendum entered by Peter Mei RN 05/14/24 06:22:
Pt rhythm appeared to change back to Afib 90-100's. DICTAPHONE TECHNICIAN made aware and EKG done.
Original Note:
No changes from previous assessment. Pt has been more drowsy but arousable. Pt remains on Amio, heparin, insulin and IVF per protocol. VSS. Hgb drop to 8.7 and DICTAPHONE TECHNICIAN made aware of blood in the stool.
[2024-05-14 04:56] LABS: Blood Urea Nitrogen 80 mg/dl (9-20); Calcium 7.3 mg/dl (8.4-10.2); Carbon Dioxide 21 mmol/L (22-30); Chloride 107 mmol/L (98-107); Estimated Creatinine Clearance 39 ml/min; Glucose 121 mg/dl (70-99); Potassium 3.8 mmol/L (3.5-5.1); Sodium 136 mmol/L (135-145); eGFR 34.59
[2024-05-14 05:58] LABS: Glucose - Point of Care 133 mg/dl (70-99)
[2024-05-14] MEDS: PROTONIX IV 40 MG IV (07:11)
[2024-05-14] MEDS: LIPITOR 40 MG PO (07:12)
[2024-05-14] MEDS: NSS (PRESERVATIVE FREE) 10 ML IV (07:12)
[2024-05-14] MEDS: DILAUDID 0.5 MG IV (07:19)
--- NOTE | 2024-05-14 07:22 | PTCARENOTE ---
pt received from previous rn- aox3, forgetful at times. afib with bbb on monitor, 2LNC. pt complaining of severe abdominal pain- diluadid given as per order. pt educated about plan of care- verbalized understanding. hep, amio, ivf and insulin gtts
all continue as per order. pt turns and repositions self in bed. all safety precautions in place, call abbott within reach.
[2024-05-14] MEDS: LOPRESSOR 5 MG IV (07:34)
[2024-05-14] MEDS: HEPARIN 25000 UNITS/250 ML IV (07:47)
[2024-05-14] MEDS: NOVOLIN R INSULIN INFUSION 100 IV (07:48)
--- NOTE | 2024-05-14 08:00 | W.PN.GI.CBS2 ---
Today's Communication / Plan
-
+HIDA with patent CBD. Defer to surgery on intervention. GI will sign off, please call with questions.
Assessment / Plan
-
74-year-old male with past medical history of coronary disease, diabetes, hypertension, renal insufficiency, osteomyelitis who presents with increasing abdominal pain and vomiting found to be in sepsis with DKA, Afib w/ RVR and concern for acute
calculous cholecystitis.
CT scan showed stranding, gallstones and likely reactive hepatic flexure inflammation. Follow-up imaging with abdominal ultrasound showed gallbladder sludge and thickening. He was then evaluated by surgery who felt there was a high suspicion for
cholecystitis. Subsequently, he had a HIDA scan which was consistent with acute cholecystitis, patent common bile duct noted. Given findings, will defer to surgery on intervention but given medical comorbidities and DAPT (currently held), now on
heparin gtt, would anticipate IR placement of percutaneous cholecystostomy tube for decompression. Continue abx.
GI will sign off. Please call with questions.
Subjective
Subjective
Date of Service: May 14, 2024
Patient seen in follow-up, continues to complain of abdominal pain, he is no longer on pressors. HIDA scan demonstrated cystic duct obstruction consistent with acute cholecystitis, patent common bile duct noted.
Objective
Data Reviewed
Laboratory Data:
Laboratory Results
05/14/24 03:53
05/14/24 03:53
Laboratory Results
PT 17.0 Sec (11.4-14.6) H 05/12/24 11:18
INR 1.35 05/12/24 11:18
APTT 117.2 Sec (23.4-35.0) H 05/14/24 03:53
Phosphorus 2.8 mg/dl (2.5-4.5) 05/13/24 04:26
Magnesium 2.0 mg/dl (1.6-2.3) 05/14/24 03:53
Total Bilirubin 0.4 mg/dl (0.2-1.3) 05/13/24 04:26
AST 42 U/L (17-59) 05/13/24 04:26
ALT 44 U/L (0-50) 05/13/24 04:26
Alkaline Phosphatase 118 U/L (38-126) 05/13/24 04:26
Lipase 48 U/L (23-300) 05/13/24 04:26
Vital Signs and I&O:
Vital Signs
Temp Pulse Resp BP Pulse Ox
98.9 F 99 22 141/68 94
05/14/24 04:40 05/14/24 07:00 05/14/24 07:00 05/14/24 07:00 05/14/24 07:29
I&O
05/13/24 05/14/24 05/15/24
06:59 06:59 06:59
Intake Total 3901.45 / 4196.25 4822.5 / 4822.5
Output Total 1050 / 1050 2100 / 2100
Balance 2851.45 / 3146.25 2722.5 / 2722.5
Physical Exam
Physical Exam
GEN: NAD
ABD: TTP in RUQ, epigastrium and LUQ, no rebound or guarding. +BS
MSK: +R. BKA
--- NOTE | 2024-05-14 08:04 | PTCARENOTE ---
pt went into rapid afib 150s- pt with no complaints-lopressor given- pt rate now 70s-90s- Dr. Starks aware.
[2024-05-14 08:06] LABS: Glucose - Point of Care 133 mg/dl (70-99)
--- NOTE | 2024-05-14 08:08 | W.PN.INTV ---
Addendum entered and electronically signed by Nimo Starks MD 05/14/24 12:32:
Patient seen and examined independently by myself. Resident note reviewed. Agree with assessment and plan
Patient subjectively feels improved compared to yesterday. Less short of breath. Less abdominal pain but still persistent. Denies nausea, chest pain
Heme positive stool per nursing, brown stool
Intermittent tach tachypnea noted, respiratory 12-34. Urine output brisk 2100, +2800 cc
Heart rate improved 110s to 120s but intermittently increases to the 150s. Patient relatively asymptomatic
Poor dentition
Irregularly irregular, no obvious murmur
Chest exam is clear
Abdominal exam soft, no rebound or guarding. Minimal lower abdominal discomfort, no right upper quadrant tenderness per my assessment
Right BKA, right upper extremity PICC
Data reviewed
Hemoglobin trending down to 8.7, creatinine improving to 2.0
HIDA scan positive for acute cholecystitis
A/P
At this time, patient appears to be stable
Unfortunately continues to have intermittent episodes of tachycardia without symptoms
Amiodarone being transitioned to oral per cardiology
Antiplatelet therapy remains held
Would resume aspirin at request of cardiology. Plavix held
Echocardiogram with normal biventricular function, mild MR
Remains on heparin drip
Cardiology following
Plan for percutaneous cholecystostomy tube later today per interventional radiology
Remains on antibiotics, cefepime/Flagyl
Cultures negative to date
Heme positive stool noted
Follow hemoglobin
Continue PPI
GI following as well
Blood sugars noted, on and off insulin drip
Remains n.p.o.
Reassess post percutaneous placement
Creatinine improving
Continue LR at 100 cc/h
Nephrology following
Reviewed with critical care nursing, respiratory care, pharmacy
Updated patient at length
TCCT 35 min
Original Note:
Today's Communication / Plan
Recommendations
amio gtt to po amio
restart asa 81mg/ hold plavix for procedure
percutaneous cholecystostomy tube for decompression with IR
cont abx
cont IVF
pain control; d/c dilaudid. shawn tylenol and prn oxy 5mg
recheck h&h in afternoon
Assessment
-
Assessment: 74-year-old male with a past medical history of PAD s/p right BKA, CAD s/p CABG x 3, DM type II, hypercholesterolemia and history of cataracts who presents with right-sided rib pain. He denies any recent injury or trauma. When EMS
arrived his blood pressure was low and blood glucose was 477. Patient felt weak and unwell. Upon further history he has been having upper abdominal discomfort for 5 days and not eating much. He was not taking his short acting insulin but was
taking his Lantus. In the ER he was afebrile to 98.1 �F, pulse rate 166 with rapid A-fib (new diagnosis), respiratory rate 20, BP 71/48 and saturating 98% on room air. Labs showed leukocytosis to 19.8, Hb 11.7, pH 7.26, pCO2 34, sodium 134,
glucose 398, creatinine 4.1, BUN 101, serum bicarbonate level 13, lactate 2.9, troponin 0.106, and beta-hydroxybutyrate 1.03. Blood cultures were collected, and CXR showed no acute cardiopulmonary process with suspected bibasilar atelectasis. In
the ER he was given 2 L NS 0.9%, and started on insulin drip for suspected DKA. A-fib with RVR seen on EKG and cardiology consulted to heparin drip was started given elevated [id number] score. Of note he does take metoprolol at home. Patient
was then admitted to the ICU for further care and Benefits Processor services consulted for additional management/recommendations.
Chronic conditions EMBROIDERY SPECIALIST: PAD, hypercholesterolemia, DM type II, history of cataract surgery, hypertension, CAD s/p CABG
Impression:
# Sepsis likely sec to acute cholecystitis
#DM type II complicated by hyperglycemia (not concern for DKA given urine ketones is negative)
#Nausea/vomiting/diarrhea with poor PO intake over the last 5 days likely due to recent acute gastroenteritis
#RAYMOND on CKD with metabolic acidosis due to prerenal azotemia
#Metabolic acidosis with increased anion gap mainly due to RAYMOND + lactic acidosis
#Lactic acidosis- resolved
#Rapid A-fib (new diagnosis)
#Elevated troponin likely due to demand ischemia with type II OR
#Leukocytosis
#Chronic anemia (baseline Hb 9�11.5g/dL)
#CAD s/p CABG x 3
#Hypertension
#PAD s/p right BKA (OR date: 01/26/[address] Caraballo)
#Hypercholesterolemia
#anemia
Plan:
- Sepsis; Abdominal pain
- High suspicion for acute calculus cholecystitis.
- Continue empiric antibiotics; cefepime and Flagyl
- Lipase wnl
- GI following
- CT abdomen/pelvis with cholelithiasis with mild gallbladder distention surrounding stranding concerning for acute cholecystitis
- usg abdomen with gallbladder sludge; detailed report below
- Hepatobiliary scan with nonvisualization of gallbladder suggesting cystic duct obstruction and possible acute cholecystitis
- Currently on IV 40 mg PPI daily
- Maintain IV fluid for now
-Blood culture and urine culture negative to date
- Patient presented with severe prerenal azotemia from a suspected gastroenteritis episode that started about 5 days prior to arrival with marked reduction in oral intake with nausea/vomiting/diarrhea
- acidosis resolved; d/c bicarb drip
- Patient patient was initially placed on DKA insulin protocol however acidosis is likely due to RAYMOND with serum creatinine 4.1 (baseline 1.5�1.6) and urine ketones is negative
- Restart insulin drip glycemic protocol for now; wean defer to diabetic rn medical inpatient services after procedure
- Avoid hypoglycemia with goal BG >100 and <180
- Creatinine continues to improve 2.0 in the AM today
-A-fib; patient informed that he had episode of A-fib many years ago
-Patient in sinus rhythm as of 08 AM; currently on on heparin and amiodarone gtt; transition to po amio per cardio
-updated echo similar to prior (last done in 2014)
- restart asa 81
- Maintain SpO2 >90-94%
- Aspiration precautions
- Currently denies symptoms of pneumonia
- prn nebulized bronchodilators - not currently bronchospastic
- Incentive spirometer encouraged 10x per hour for at least 4 hrs a da
- Replete electrolytes with K>4, Mg>2
- Maintain euglycemia with goal BG 140-180
- Trend H/H and transfuse if needed to keep Hb>7g/dL; keep plt>20k, unless there is concern for bleeding then keep plt>50k
- DVT ppx: Heparin drip
Continue ICU level care for this critically ill patient
Data:
CXR 05/12/2024:
Lungs appear slightly hypoinflated, with stable elevation right hemidiaphragm.
Patchy parenchymal opacity within the medial aspect of both lower lungs, likely atelectasis.
CT abd/pelvis 05/02/24:
Cholelithiasis with mild gallbladder distention and surrounding stranding concerning for acute cholecystitis. Recommend correlation with right upper quadrant ultrasound.
There is mild wall thickening along the hepatic flexure, possibly reactive mild colitis.
Bibasilar airspace opacities which likely represent atelectasis.
Usg abdomen 05/13/24:
Gallbladder sludge. Cannot exclude minimal gallbladder wall thickening. Negative sonographic Ramirez's sign. No findings to suggest biliary tract dilatation.
Findings suggesting diffuse fatty liver.
Pancreas, abdominal aorta and IVC significantly obscured, most likely by overlying bowel gas.
Subjective Dataa
Subjective Data
Date of Service:
Date of Service: May 14, 2024
Chief Complaint: Benefits Processor Follow Up
Subjective:
Patient seen and evaluated in the AM. Patient is off phenylephrine as of 1900 on 05/13/2024. Vitals in the a.m. today blood pressure 141/68, pulse of 99, RR 22, temperature 98.9, O2 sat 94% on 2L NC. Patient laying in the bed offers no new
complaints however states that he continues to have right-sided upper abdominal pain which was relieved after receiving IV Dilaudid. Additionally he informed me that he had 1 dark blackish stools last night; confirmed with the nurse was heme
positive.
Review of Systems
General: Fever (No)
Cardiopulmonary: Cough (no)
GI: Abdominal Pain, Vomiting (no) and Diarrhea (no)
Neuro: Headache (no)
Objective Data
Data Reviewed
Vital Signs / I&O / Oxygen:
Vital Signs
Temp Pulse Resp BP Pulse Ox
98.9 F 99 22 141/68 94
05/14/24 04:40 05/14/24 07:00 05/14/24 07:00 05/14/24 07:00 05/14/24 07:29
Intake and Output
05/13/24 05/14/24 05/15/24
06:59 06:59 06:59
Intake Total 3901.45 / 4196.25 4822.5 / 4822.5 130.2 / 130.2
Output Total 1050 / 1050 2100 / 2100 275 / 275
Balance 2851.45 / 3146.25 2722.5 / 2722.5 -144.8 / -144.8
SaO2 94
Nasal Cannula flow liters per 2
minute
Physical Exam
General: Comfortable
Cardiovascular: S1-S2 and Regular Rhythm
Respiratory: Non-Labored Respirations
GI: Soft, Non Distended and Non Tender (Ramirez's negative)
Neurology: Awake, Alert and Oriented
Skin: Warm, Dry and Other (Right BKA)
Labs/Micro/Reports
Lab Data
05/14/24 03:53
05/14/24 03:53
Laboratory Results
05/13/24 05/13/24 05/14/24
11:12 16:48 03:53
APTT 83.5 H 93.7 H 117.2 H
Microbiology
05/12/24 11:51 Blood/Venous Blood Culture - Preliminary
No Growth in 24 hours- Final report to follow
05/12/24 11:51 Blood/Venous Blood Culture - Preliminary
No Growth in 24 hours- Final report to follow
05/12/24 13:02 Urine Urine Culture - Final
NO GROWTH
[2024-05-14 08:56] LABS: Protein/creatinine Ratio 0.7; Urine Protein 41 mg/dl
--- NOTE | 2024-05-14 09:12 | PN.DE.MGMTRT ---
Insulin Management
- -
05/14/2024: Diabetes Management Consult Follow up
74 year old male who p/w right-sided rib pain. When EMS arrived his blood pressure was low and blood glucose was 477.
PMH: ASCVD, CAD s/p CABG x 3, HTN, HLD, CKD IIIb, REGGIE, Anemia of CKD, PAD s/p right BKA, hypercholesterolemia and DM type II.
Patient known to diabetes team from multiple admissions. 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 Prior to admission was taking Lantus 17 units @
hs and Humalog 7 units with meals. Last A1C was 8.8% in December 2023, current A1C 7.7%. Cr 2.7, eGFR 24.13.
Pt awake, alert, resting in bed, c/o abd pain, otherwise, feels well, able to discuss diabetes mgt. NPO for procedure.
Remained on glycemic protocol overnight requiring 1.2 to 1.5 units of insulin per hour. Will transition to subcutaneous insulin, 10 units lantus now, insulin infusion off 2 hours after administered. Will start moderate corrective Q 6 as patient is
NPO. Will resume HS lantus 16 units tonight and check 3AM glucose.
Discussed with nurse.
Will follow.
Diabetes History
- -
Type of Diabetes: 2 requiring insulin
Pre-Admission Diabetes Regimen
05/13/24 05/13/24 05/14/24
: 16:48 03:53
Creatinine 2.7 H 2.3 H 2.0 H
Lab Results
Hemoglobin A1c 7.7 % (4.0-5.6) H 05/13/24 04:26
Insulin Pump Settings
IP Diabetes Regimen
05/13/24 05/13/24 05/13/24
11:53 13:04
Glucose 118 H
POC Glucose 245 H 228 H
05/13/24 05/13/24 05/13/24
14:13 15:25 16:35
Glucose
POC Glucose 220 H 224 H 176 H
05/13/24 05/13/24 05/13/24
16:48 17:32 18:28
Glucose 146 H
POC Glucose 187 H 140 H
05/13/24 05/13/24 05/13/24
19:32 21:42 22:43
Glucose
POC Glucose 135 H 109 H 124 H
05/13/24 05/14/24 05/14/24
23:45 00:44 01:48
Glucose
POC Glucose 118 H 133 H 136 H
05/14/24 05/14/24 05/14/24
03:49 03:53 05:47
Glucose 121 H
POC Glucose 142 H 133 H
05/14/24
07:55
Glucose
POC Glucose 133 H
Meal type: Breakfast
Meal type: Dinner
Amount consumed: Patient refused
Amount consumed: Patient refused
Patient Education
--- NOTE | 2024-05-14 09:25 | W.PN.CARDCBS ---
Today's Communication / Plan
-
Paroxysmal atrial fibrillation
Continue rate control strategy for atrial fibrillation for now.
Will resume beta mary therapy as bp improved at 25 mg daily (was on 50mg as outpt)
IV heparin anticoagulation given elevated [id number] score in the setting of atrial fibrillation
Transition to Amiodarone 400 mg TID from IV Amiodarone
Discussed eventual transition to oral anticoagulation. He currently was previously reluctant to consider this. He understands a significant stroke risk and elevated [id number] score. Will continue to review this with him
Patient receiving IV fluids, volume resuscitation
Amlodipine and metoprolol were held in setting of hypotension
Creatinine improving with fluid resuscitation, improving currently 2.0 on May 14, 2.7 on 05/13.
Echocardiogram May 13 2024: EF 50% with mild MR and mild TR
Troponin peaked at 0.1, medical therapy for now for non-CT troponin
Continue DKA treatment as per primary service and radio communications superintendent.
Leukocytosis, improving, workup and evaluation for infection as per primary service.
Cont ASA.
He had been on dual antiplatelet therapy likely for recent BKA peripheral arterial disease. Would review with vascular regarding duration of Plavix therapy.
Per GI, CT scan showed evidence of cholecystitis and evaluated by surgery and pt being evaluated for IR placement of percutaneous cholecystostomy tube for decompression. Continue abx.
Impression / Plan
-
.
Primary derrick man: Dr. Jony Rojas
Primary care physician, Dr. Gene Banks
Impression:
DKA
Acute on chronic renal failure
Hypotension
Paroxysmal atrial fibrillation with RVR
Leukocytosis
Non-CT troponin elevation, 0.1 peak
Anemia with history of anemia
Hx CABG x 3 VALIENTE to LAD and sequential vein graft to OM and right PLB 2014
Diabetes mellitus type 2
Right bundle branch block
Hyperlipidemia
Peripheral arterial disease
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
History noncompliance
LVH
Echo July 2014: EF 55% with moderate LVH and no significant valvular disease.
Technically difficult study.
Normal left ventricular size and systolic function. Normal left ventricular
wall thickness. No regional wall motion abnormalities are seen. LV ejection
fraction is 50%.
Mild mitral regurgitation.
Mild tricuspid regurgitation.
Compared to previous echo from July 2014, there is now mild MR
Plan:
Paroxysmal atrial fibrillation
Continue rate control strategy for atrial fibrillation for now.
Will resume beta mary therapy as bp improved at 25 mg daily (was on 50mg as outpt)
IV heparin anticoagulation given elevated [id number] score in the setting of atrial fibrillation
Transition to Amiodarone 400 mg TID from IV Amiodarone
Discussed eventual transition to oral anticoagulation. He currently was previously reluctant to consider this. He understands a significant stroke risk and elevated [id number]-[id number] score. Will continue to review this with him
Patient receiving IV fluids, volume resuscitation
Amlodipine and metoprolol were held in setting of hypotension
Creatinine improving with fluid resuscitation, improving currently 2.0 on May 14, 2.7 on 05/13.
Echocardiogram May 13 2024: EF 50% with mild MR and mild TR
Troponin peaked at 0.1, medical therapy for now for non-CT troponin
Continue DKA treatment as per primary service and radio communications superintendent.
Leukocytosis, improving, workup and evaluation for infection as per primary service.
Cont ASA.
He had been on dual antiplatelet therapy likely for recent BKA peripheral arterial disease. Would review with vascular regarding duration of Plavix therapy.
Per GI, CT scan showed evidence of cholecystitis and evaluated by surgery and pt being evaluated for IR placement of percutaneous cholecystostomy tube for decompression. Continue abx.
Discussed with nursing and radio communications superintendent.
CCT: 32 min
Progress Note - Skein Tier
Subjective
Date of Service: May 14, 2024
Pt seen and examined. No complaints. No chest pain or shortness of breath.
Objective
Labs:
05/14/24 03:53
05/14/24 03:53
Labs
Hgb 8.7 g/dL (13.0-18.0) L 05/14/24 03:53
Hct 24.4 % (39.0-52.0) L 05/14/24 03:53
Plt Count 227 10^3/uL (130-400) 05/14/24 03:53
PT 17.0 Sec (11.4-14.6) H 05/12/24 11:18
INR 1.35 05/12/24 11:18
APTT 117.2 Sec (23.4-35.0) H 05/14/24 03:53
Sodium 136 mmol/L (135-145) 05/14/24 03:53
Potassium 3.8 mmol/L (3.5-5.1) 05/14/24 03:53
BUN 80 mg/dl (9-20) H 05/14/24 03:53
Creatinine 2.0 mg/dL (0.7-1.3) H 05/14/24 03:53
Glucose 121 mg/dl (70-99) H 05/14/24 03:53
Troponins
05/12/24 05/12/24 05/13/24
11:18 22:09 04:26
Troponin I 0.106 H* 0.098 H* 0.086 H*
05/13/24
05:00
Troponin I Cancelled
Vital Signs and I&O:
Vital Signs
Temp Pulse Resp BP Pulse Ox
99.4 F 81 20 117/60 95
05/14/24 08:00 05/14/24 08:00 05/14/24 08:00 05/14/24 08:00 05/14/24 08:00
Vital Signs
Temp Pulse Resp BP Pulse Ox
99.4 F 81 20 117/60 95
05/14/24 08:00 05/14/24 08:00 05/14/24 08:00 05/14/24 08:00 05/14/24 08:00
Intake & Output
05/12/24 05/13/24 05/14/24 05/15/24
06:59 06:59 06:59 06:59
Intake Total 3901.45 / 4196.25 4822.5 / 4822.5 260.4 / 260.4
Output Total 1050 / 1050 2100 / 2100 275 / 275
Balance 2851.45 / 3146.25 2722.5 / 2722.5 -14.6 / -14.6
Physical Exam
Physical Exam
General: No acute distress, AAOX3
Neck: Negative JVD
Heart: Regular, Negative S3 positive S1/S2, Negative S4, No murmur
Lungs: CTA b/l, negative wheezes/rales/rhonchi
Abd: Positive BS, NT/ND, neg rebound/rigidity/guarding
Ext: Right BKA, left LE: negative cyanosis/clubbing/edema
Neuro: nonfocal
--- NOTE | 2024-05-14 09:40 | PN.CDI ---
Addendum entered and electronically signed by Bebo Burris MD 05/14/24 14:36:
Documentation complete. Diabetic ketoacidosis remains a valid diagnosis. Patient had positive beta hydroxybutyric acid and his anion gap was likely due to more than just a lactic acidosis and acute kidney injury.
Original Note:
CDI
- -
CDI:
Physician Documentation Request
Admit Date: 05/12/24 13:19
Dear Doctor Fatuma,
Please review the following and provide your response in the progress notes.
Clinical Indicators:
- 05/13 PN 'Acute diabetic ketoacidosis...Due to insulin noncompliance'
- 05/13 Discharging Machine Operator 'DM type II complicated by hyperglycemia (not concern for DKA given urine ketones is negative)'
- 'Metabolic acidosis with increased anion gap mainly due to RAYMOND + lactic acidosis'
In an attempt to clarify potentially conflicting documentation, please clarify the diabetes:
Acute diabetic ketoacidosis
DM2 complicated by hyperglycemia, DKA ruled out
Other (please specify)
Use of terms such as suspected, likely, concern for, or probable (associated with a specific diagnosis that is being evaluated, monitored, or treated as if it exists) are acceptable and can be coded in the inpatient setting, when documented at the
time of discharge.
Thank you,
eMl Jansen RN
CDI Specialist
Please use your independent medical judgment in providing your response.
[2024-05-14] MEDS: LR 1000 IV ×3 (09:55→20:08)
[2024-05-14 10:25] LABS: Glucose - Point of Care 127 mg/dl (70-99)
[2024-05-14 10:37] LABS: APTT 85.7 Sec (23.4-35.0)
[2024-05-14] MEDS: PACERONE 400 MG PO ×3 (10:45→22:38)
[2024-05-14] MEDS: TYLENOL 1000 MG PO ×3 (10:45→22:38)
--- NOTE | 2024-05-14 10:48 | PTCARENOTE ---
Dr. Starks and Dr. Nina aware of pts hr 140s-150s- po amio given per order, gtt d/c. pt not complaining of chest pain or palpitations, bp stable.
--- NOTE | 2024-05-14 10:54 | W.PN.NEPH.PH ---
Today's Communication / Plan
-
cont IVF
Afib per cards
follow labs
Assessment/Plan
-
IMP:
DKA
RAYMOND with CKD stage 3b baseline cr 1.4-1.7
Hypotension/?septic shock
suspected cholecystitis on CT
AFib with RVR
Elevated TPNI : NIMI
BPH
H/o U retention
Hypoantremia
Hypokalemia
hypocalcemia
Hypoalbuminemia
HLD
CAD s/p CABG
PAD Rt BKA
Renal calculi
Anemia of chronic disease
DM type 2 with circulatory complications
Non compliance
Plan:
A/w abd pain, CT concern of cholecystitis and noted hypotension on pressors and DKA
RAYMOND-highly suspect prerenal, cr improving from peak at 4.2 to 2, non oliguric
however seem to have high PVR-monitor, low threshold for bosch , no hydro on CT
UA mild microhematuria and 2+alb-check U PCR 700mg/gm of cr
met acidosis improved, no won LR
avoid nephrotoxins
BP soft with afib RVR, on Amio and heparin gtt
for IR cholecystostomy tube today
d/w pt and nursing
he will benefit from following nephro out pt
-
-
Date of Service: May 14, 2024
CC / HPI / ROS
-
Chief Complaint:
RAYMOND
History of Present Illness:
cr improving to 2, non oliguric
BP soft with afib RVR , bicarb at 21
no fever
Review of Systems:
no cp or sob
abd pain no change
Labs
-
Labs:
WBC 15.2 10^3/uL (4.8-10.8) H 05/14/24 03:53
RBC 2.95 10^6/uL (4.70-6.10) L 05/14/24 03:53
Plt Count 227 10^3/uL (130-400) 05/14/24 03:53
Sodium 136 mmol/L (135-145) 05/14/24 03:53
Potassium 3.8 mmol/L (3.5-5.1) 05/14/24 03:53
Chloride 107 mmol/L (98-107) 05/14/24 03:53
Carbon Dioxide 21 mmol/L (22-30) L 05/14/24 03:53
BUN 80 mg/dl (9-20) H 05/14/24 03:53
Creatinine 2.0 mg/dL (0.7-1.3) H 05/14/24 03:53
eGFR 34.59 05/14/24 03:53
Glucose 121 mg/dl (70-99) H 05/14/24 03:53
Calcium 7.3 mg/dl (8.4-10.2) L 05/14/24 03:53
Phosphorus 2.8 mg/dl (2.5-4.5) 05/13/24 04:26
Albumin 2.3 g/dl (3.5-5.0) L 05/13/24 04:26
Physical Exam
-
Vital Signs:
Vital Signs
Temp Pulse Resp BP Pulse Ox
99.4 F 152 24 103/84 91
05/14/24 08:00 05/14/24 10:17 05/14/24 10:17 05/14/24 10:17 05/14/24 10:17
Cardiovascular:: Irregular rate and rhythm
Respiratory:: Bilateral: CTA
Lung Excursion:: Normal
Abdomen:: Nontender and Soft
Bowel Sounds:: Normal
Extremity Edema:: None: Left:
Bosch Catheter: No
Other Findings::
right BKA stump
[2024-05-14] MEDS: TOPROL XL 25 MG PO (11:03)
[2024-05-14] MEDS: LOW STRENGTH ASPIRIN 81 MG PO (11:03)
[2024-05-14] MEDS: LANTUS 0.1 UNITS SC (11:04)
--- NOTE | 2024-05-14 11:11 | W.PN.GS2 ---
Today's Communication / Plan
-
-- IR cholecystostomy tube
Assessment / Plan
-
Patient is a 74 yo M p/w sepsis likely secondary to acute cholecystitis
US with gallbladder sludge, unable to appreciate significant wall thickening, negative sonographic Ramirez sign no biliary ductal dilation
CT with distended gallbladder and sludge, pericholecystic inflammation, mild wall thickening
HIDA with nonvisualization of the gallbladder
AVSS, currently on amnio drip, weaned off pressors
Labs notable for persistent leukocytosis, stable Hb, mildly improved acute on chronic kidney injury, no bilirubin or LFT abnormalities, slightly downtrending troponin yesterday
Sepsis secondary to acute cholecystitis. Plan for IR cholecystostomy tube management today.
-- IR darrian tube
-- NPO, IVF
-- Abx: Cefepime and Flagyl
Subjective Data
-
Date of Service: May 14, 2024
No changes in symptoms. Continues to report lower abdominal discomfort. No nausea or vomiting. Afebrile.
Objective Data
-
Intake and Output
05/13/24 05/14/24 05/15/24
06:59 06:59 06:59
Intake Total 3901.45 / 4196.25 4822.5 / 4822.5 490.3 / 490.3
Output Total 1050 / 1050 2100 / 2100 575 / 575
Balance 2851.45 / 3146.25 2722.5 / 2722.5 -84.7 / -84.7
Intake:
Oral fluids 1260 / 1260 240 / 240
IV fluids (Total) 2441.45 / 2736.25 3582.5 / 3582.5 490.3 / 490.3
Nss 1,000 ml @ 250 mls/hr IV . 375 / 375
Q4H JENNIFER Rx#:[id number]
Sterile Water For Injection 1750 / 1900 450 / 450
1000 ml 1,000 ml @ 150 mls/hr
IV .Q7H40M JENNIFER with Sodium
Bicarbonate 150 Meq Rx#:
[id number]
amiodarone 18.2 / 51.5 517.1 / 517.1 50.1 / 50.1
flagyl 100 / 100 100 / 100
heparin 157 / 170 322 / 322 36 / 36
insulin 39.7 / 39.7 49.4 / 49.4 4.2 / 4.2
ivf 1800 / 1800 300 / 300
k rider 270.0 / 270.0
levophed 101.55 / 101.55
mag 50 / 50
ronan 0 / 6
IV piggybacks 200 / 200 1000 / 1000
Output:
Urine, Voided 1050 / 1050 2100 / 2100 575 / 575
Vital Signs
Temp Pulse Resp BP Pulse Ox
99.4 F 152 24 103/84 91
05/14/24 08:00 05/14/24 10:17 05/14/24 10:17 05/14/24 10:17 05/14/24 10:17
Lab Results
05/14/24 03:53
Calcium 7.3 mg/dl (8.4-10.2) L 05/14/24 03:53
Phosphorus 2.8 mg/dl (2.5-4.5) 05/13/24 04:26
Magnesium 2.0 mg/dl (1.6-2.3) 05/14/24 03:53
Total Bilirubin 0.4 mg/dl (0.2-1.3) 05/13/24 04:26
Direct Bilirubin 0.3 mg/dl (0.0-0.4) 05/13/24 04:26
AST 42 U/L (17-59) 05/13/24 04:26
ALT 44 U/L (0-50) 05/13/24 04:26
Alkaline Phosphatase 118 U/L (38-126) 05/13/24 04:26
Total Protein 4.7 g/dl (6.3-8.2) L 05/13/24 04:26
Albumin 2.3 g/dl (3.5-5.0) L 05/13/24 04:26
Physical Exam
-
Gen: NAD
Abd: soft, tender in mid/lower abdomen, negative Ramirez's sign, non-pertoneal
Patient has a boshc catheter: No
[2024-05-14] MEDS: CORDARONE 103 MG IV (11:13)
--- NOTE | 2024-05-14 11:20 | PTCARENOTE ---
pt bp 80s-90s systolically, HR 160s, EKG completed Dr. Starks at bedside- see viridiana caceres bolus given per order.
--- NOTE | 2024-05-14 11:46 | PTCARENOTE ---
pt hr continues to be 150s- Dr. Starks at bedside- no further orders at this time. pt continues to deny chest pain or palpitations. pt increased to 4LNC.
[2024-05-14 11:56] LABS: Glucose - Point of Care 156 mg/dl (70-99)
--- NOTE | 2024-05-14 11:57 | W.PN.HOSP.TC ---
Today's Communication/Plan
-
see plan
Assessment / Plan
Assessment / Plan
Gen: NAD, AAOx3.
Eyes: EOMI, PERRLA, no scleral icterus.
Neck: supple.
CV: tachy, irreg/irreg, +S1/S2, no m/r/g.
Resp: CTAB anteriorly, no rales, wheezes, or rhonchi.
Abd: remains +BS, soft, NT, ND
Skin: No rashes.
Neuro: CN 2-12 intact, non-focal.
Psych: Normal mood and affect.
05/12/24 11:51 Blood/Venous Blood Culture - Preliminary
No Growth in 48 hours- Final report to follow
05/12/24 11:51 Blood/Venous Blood Culture - Preliminary
No Growth in 48 hours- Final report to follow
05/12/24 13:02 Urine Urine Culture - Final
NO GROWTH
CT C/A/P: Cholelithiasis with mild gallbladder distention and surrounding stranding concerning for acute cholecystitis. Recommend correlation with right upper quadrant ultrasound. There is mild wall thickening along the hepatic flexure, possibly
reactive mild colitis. Bibasilar airspace opacities which likely represent atelectasis.
RUQ U/S: Gallbladder sludge. Cannot exclude minimal gallbladder wall thickening. Negative sonographic Ramirez's sign. No findings to suggest biliary tract dilatation. Findings suggesting diffuse fatty liver. Pancreas, abdominal aorta and IVC
significantly obscured, most likely by overlying bowel gas.
HIDA: Patent common bile duct. Nonvisualization of the gallbladder suggesting cystic duct obstruction and possible acute cholecystitis.
Acute diabetic ketoacidosis:
-Due to insulin noncompliance due to abdominal pain due to acute cholecystitis
-RAYMOND on CKD3b due to volume contraction due to DKA and hypotension due to septic shock, POA
-cont IVFs
-AG now closed
-transitioning to Lantus from insulin gtt
-SSI/accuchecks
-diabetes METAL FURNITURE ASSEMBLY SUPERVISOR following
Septic shock due to acute cholecystitis:
-imaging above
-cont Cefepime/Flagyl
-BCxs NGTD
-Acute nonischemic myocardial injury due to septic shock
-Was on Levophed, now on Jhoan-Synephrine
-surgery following, ASA/Plavix on hold. Plan for perc darrian.
Afib with RVR:
-converted to SR 05/13/24AM
-was on Amio gtt, now converted to PO Amio
-cont heparin gtts
-currently back in afib with RVR, SBP 90s, will d/w cards
Other problems:
HLD: cont statin
Essential HTN: holding home antihypertensives
PAD: cont statin/ASA/Plavix
R BKA
Renal calculi
Hyponatremia, resolved
RN updated
Total critical care time spent = 37 min
Anticipated Discharge: > 48 hours
Subjective/Interval History
-
Date of Service: May 14, 2024
Reports abd pain and SOB. Denies CP.
Objective Data
-
Labs:
Laboratory Results
05/14/24 05/14/24 05/14/24
03:53 10:03 16:00
WBC 15.2 H
Hgb 8.7 L Pending
Hct 24.4 L Pending
Plt Count 227
APTT 117.2 H 85.7 H
Sodium 136
Potassium 3.8
Chloride 107
Carbon Dioxide 21 L
BUN 80 H
Creatinine 2.0 H
Glucose 121 H
Calcium 7.3 L
05/14/24
16:30
WBC
Hgb
Hct
Plt Count
APTT Pending
Sodium
Potassium
Chloride
Carbon Dioxide
BUN
Creatinine
Glucose
Calcium
Vital Signs:
Vital Signs
Temp Pulse Resp BP Pulse Ox
99.4 F 158 25 94/65 94
05/14/24 08:00 05/14/24 11:25 05/14/24 11:25 05/14/24 11:25 05/14/24 11:25
I&O
05/13/24 05/14/24 05/15/24
06:59 06:59 06:59
Intake Total 3901.45 / 4196.25 4822.5 / 4822.5 703.5 / 703.5
Output Total 1050 / 1050 2099 / 2099 575 / 575
Balance 2851.45 / 3146.25 2722.5 / 2722.5 128.5 / 128.5
--- NOTE | 2024-05-14 12:33 | W.PN.UPDATE ---
Update Note
Progress Note Update
CTSP for tachycardia, heart rate persistently in the 150s to 160s
Patient attempted to go to the commode but did not ambulate, just turned in the bed. Patient stated he is feeling like he needs to have a bowel movement
Following this, patient felt fatigued, heart rate increased to the 150s, maintained at this rate for 15 to 20 minutes
Oral Lopressor given per cardiology
Heart rate persisted in the 150s to 160s
Amiodarone 150 mg x 1 given, heart rate improved to the 140s
EKG per my review appears to be consistent with atrial fibrillation, images sent to cardiology
Moving forward
Continue with amiodarone, beta-mary resumed
Patient appears to be comfortable, heart rate in the 140s
Echocardiogram with normal biventricular function, mild MR, EF 50%
Follow
Aspirin 81 mg has been resumed at request of cardiology. Plavix remains held
History of peripheral vascular disease noted, history of bypass surgery noted
Await percutaneous cholecystostomy tube later today
Reviewed with critical care nursing and cardiology
TCCT 20 min
[2024-05-14] MEDS: NOVOLOG FLEXPEN-MODERATE RESISTANCE SC (12:54)
--- NOTE | 2024-05-14 12:54 | PTCARENOTE ---
Dr. Starks at bedside- [facility] gtt started as per order, lr bolus per order. insulin gtt off per Shahida Chung np.
--- NOTE | 2024-05-14 12:54 | PTCARENOTE ---
Dr. Starks at bedside- [facility] gtt started as per order, lr bolus per order. insulin gtt off per Shahida Chung np.
[2024-05-14] MEDS: CARDIZEM 125 IV ×2 (12:55→22:37)
[2024-05-14 13:04] LABS: Glucose - Point of Care 145 mg/dl (70-99)
[2024-05-14 13:29] LABS: Hematocrit 24.5 % (39.0-52.0); Hemoglobin 8.8 g/dL (13.0-18.0)
--- NOTE | 2024-05-14 13:30 | PTCARENOTE ---
heparin gtt on hold for ir procedure per order
--- NOTE | 2024-05-14 15:31 | CM ---
CM following re: discharge planning.
Discussed in Rounds, reviewed t's chart, met with pt and pt's friend at bedside.
Per Rounds meeting, plan for IR cholecystostomy tube management today, continue supportive care. .
Pt [place], 3 steps to enter, has no family, has supportive friend, friend Nisha Figueroa has POA. Pt reports he ambulates with a walker, has a wheelchair, went to [facility] in January 2024. Pt stated he supposed to receive his
prosthetic leg and he will need to go to [facility] for training.
[facility] program manager following for a possible admission to [facility] for training of using prosthetic leg.
D/C plan: possible [facility] for prosthetic leg training.
CM will follow with discharge plan updates as hospitalization progresses
--- NOTE | 2024-05-14 15:49 | PTCARENOTE ---
Addendum entered by Nathalie Sánchez RN 05/14/24 15:55:
Dr. Starks at bedside and remains aware of pts vitals- no further orders.
Addendum entered by Nathalie Sánchez RN 05/14/24 15:50:
heparin gtt restarted post procedure
Original Note:
pt back frm IR- right upper quad. perc drain in place- dressing c/d/i. hr remains elevated 150s- cardizem and ivf continue.
[2024-05-14] MEDS: NOVOLOG FLEXPEN-MODERATE RESISTANCE 1 UNITS SC (16:47)
[2024-05-14 16:52] LABS: Glucose - Point of Care 187 mg/dl (70-99)
[2024-05-14] MEDS: ROXICODONE 5 MG PO (17:34)
[2024-05-14 17:56] LABS: APTT 74.8 Sec (23.4-35.0)
--- NOTE | 2024-05-14 18:05 | PTCARENOTE ---
darrian drain flushed as per order, dark brown drainage. pt hr improved 90s-100s, oxy given for pain. assessment unchanged further.
[2024-05-14] MEDS: LANTUS 0.16 UNITS SC (22:37)
[2024-05-14] MEDS: DESYREL 25 MG PO (22:38)
[2024-05-14] MEDS: FLOMAX 0.4 MG PO (22:38)
[2024-05-14 22:47] LABS: Glucose - Point of Care 219 mg/dl (70-99)
[2024-05-15] VITALS (22 sets, daily range): BP systolic 102–141; BP diastolic 42–65; BMI 24.9
--- NOTE | 2024-05-15 | PTCARENOTE ---
pt reassessed, remains on 4L NC, denies pain, heparin/cardizem/IVF gtts continue. pt with BM x2 overnight so far. CHG bath done. call abbott in reach
[2024-05-15] MEDS: STERILE WATER FOR INJECTION 10 ML IV ×3 (01:23→17:58)
[2024-05-15] MEDS: MAXIPIME 1000 MG IV ×3 (01:23→17:59)
[2024-05-15] MEDS: FLAGYL 500 MG 100 IV ×3 (01:23→17:01)
[2024-05-15] MEDS: LR 1000 IV (04:22)
--- NOTE | 2024-05-15 04:29 | PTCARENOTE ---
AM labs sent. cardizem gtt titrated off, HR 80-100. assessment unchanged. call abbott in reach
[2024-05-15 04:50] LABS: Hematocrit 22.6 % (39.0-52.0); Hemoglobin 7.7 g/dL (13.0-18.0); Mean Corp Hgb Conc. 34.1 g/dL (33.0-37.0); Mean Corpuscular Hgb 29.3 pg (27.0-31.0); Mean Corpuscular Volume 85.9 fL (80.0-94.0); Mean Platelet Volume 9.6 fL (7.4-10.4); Platelet Count 238 10^3/uL (130-400); Red Blood Cell Count 2.63 10^6/uL (4.70-6.10); Red Cell Dist. Width 15.3 % (11.5-14.5); White Blood Cell Count 14.2 10^3/uL (4.8-10.8)
[2024-05-15 05:14] LABS: APTT 154.6 Sec (23.4-35.0)
[2024-05-15 05:43] LABS: Blood Urea Nitrogen 83 mg/dl (9-20); Calcium 7.1 mg/dl (8.4-10.2); Carbon Dioxide 19 mmol/L (22-30); Chloride 108 mmol/L (98-107); Estimated Creatinine Clearance 34 ml/min; Glucose 190 mg/dl (70-99); Potassium 4.1 mmol/L (3.5-5.1); Sodium 136 mmol/L (135-145); eGFR 29.25
[2024-05-15] MEDS: HEPARIN 25000 UNITS/250 ML IV (07:00)
--- NOTE | 2024-05-15 07:31 | PN.DE.MGMTRT ---
Insulin Management
- -
05/15/2024: Diabetes Management Consult Follow up
74 year old male who p/w right-sided rib pain. When EMS arrived his blood pressure was low and blood glucose was 477.
PMH: ASCVD, CAD s/p CABG x 3, HTN, HLD, CKD IIIb, REGGIE, Anemia of CKD, PAD s/p right BKA, hypercholesterolemia and DM type II.
Patient known to diabetes team from multiple admissions. 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 Prior to admission was taking Lantus 17 units @
hs and Humalog 7 units with meals. Last A1C was 8.8% in December 2023, current A1C 7.7%. Cr 2.7, eGFR 24.13.
Pt awake, alert, resting in bed, states pain is mostly gone, feels better but tired, able to discuss diabetes mgt. Clear liquids started.
Transitioned from IV insulin to subcutaneous insulin, 16 units lantus @ HS, moderate corrective AC.
Fasting glucose this AM 190, will increase HS lantus 18 units tonight and check 3AM glucose.
Discussed with nurse, if glucose trending up will tt for start for AC novolog.
Will follow.
Diabetes History
- -
Type of Diabetes: 2 requiring insulin
Pre-Admission Diabetes Regimen
05/15/24
04:26
Creatinine 2.3 H
Lab Results
Hemoglobin A1c 7.7 % (4.0-5.6) H 05/13/24 04:26
Insulin Pump Settings
IP Diabetes Regimen
05/14/24 05/14/24 05/14/24
07:55 10:14 11:44
Glucose
POC Glucose 133 H 127 H 156 H
05/14/24 05/14/24 05/14/24
12:53 16:41 22:36
Glucose
POC Glucose 145 H 187 H 219 H
05/15/24
04:26
Glucose 190 H
POC Glucose
Meal type: Breakfast
Patient Education
[2024-05-15] MEDS: LIPITOR 40 MG PO (07:34)
[2024-05-15] MEDS: LOW STRENGTH ASPIRIN 81 MG PO (07:34)
[2024-05-15] MEDS: TOPROL XL 25 MG PO (07:34)
[2024-05-15] MEDS: TYLENOL 1000 MG PO ×3 (07:34→22:24)
[2024-05-15] MEDS: NOVOLOG FLEXPEN-MODERATE RESISTANCE 3 UNITS SC ×2 (07:35→17:13)
[2024-05-15] MEDS: PACERONE 400 MG PO ×3 (07:35→22:23)
[2024-05-15] MEDS: PROTONIX IV 40 MG IV (07:35)
[2024-05-15] MEDS: NSS (PRESERVATIVE FREE) 10 ML IV (07:35)
[2024-05-15 07:36] LABS: Glucose - Point of Care 206 mg/dl (70-99)
--- NOTE | 2024-05-15 07:59 | W.PN.INTV ---
Addendum entered and electronically signed by Nimo Starks MD 05/15/24 12:19:
Patient seen and examined independently by myself. Resident note reviewed, agree with assessment and plan
Patient is feeling improved today. Less issues overnight, feels abdominal pain has resolved. Percutaneous tube placed 05/14
Denies chest pain, abdominal pain, nausea, shortness of breath. Continues with fatigue. Now in sinus rhythm
Blood pressure 100s/50s, heart rate 80s to 90s. Positive fluid balance 3.5 L noted. 93% on 4 L this morning
Chest exam is clear
No murmurs. Regular rhythm noted
Abdominal exam soft, nontender, no rebound or guarding
Percutaneous cholecystostomy tube in place
Right BKA, no left lower extremity edema
Data reviewed
Hemoglobin trending down to 7.7
Heme positive stool noted, bowel movements overnight noted, no obvious blood
CXR with mildly elevated right hemidiaphragm otherwise no acute findings
A/P
Moving forward
Will continue with supportive care
Off Cardizem drip
Heparin drip continues. Repeat hemoglobin later p.m.
May need to decide on heparin therapy depending on hemoglobin, heme positive stool
Will follow closely
Clinical improvement argues against significant bleeding at this time
Continue with rate control per cardiology
Remains on oral amiodarone
Heparin therapy continues for now
Hyperglycemia noted. Continue to follow
Advance diet as able, clears and then reassess
Appears to have mildly elevated right hemidiaphragm, which appears to be chronic no obvious mediastinal abnormality per CT imaging 05/12/2024
Wean oxygen as able
PT/OT, out of bed to chair
Will keep in ICU for now and confirm overall stability of tachycardia
Possible transfer out of ICU in the next 24 hours
Reviewed at length with critical care nursing, respiratory care, pharmacy
Original Note:
Today's Communication / Plan
Recommendations
Continue IVF
clears
Continue antibiotics
Lantus 18 units at bedtime
pt/oob
hb at 1230
encourage the use of incentive spirometer
Assessment
-
Assessment: 74-year-old male with a past medical history of PAD s/p right BKA, CAD s/p CABG x 3, DM type II, hypercholesterolemia and history of cataracts who presents with right-sided rib pain. He denies any recent injury or trauma. When EMS
arrived his blood pressure was low and blood glucose was 477. Patient felt weak and unwell. Upon further history he has been having upper abdominal discomfort for 5 days and not eating much. He was not taking his short acting insulin but was
taking his Lantus. In the ER he was afebrile to 98.1 �F, pulse rate 166 with rapid A-fib (new diagnosis), respiratory rate 20, BP 71/48 and saturating 98% on room air. Labs showed leukocytosis to 19.8, Hb 11.7, pH 7.26, pCO2 34, sodium 134,
glucose 398, creatinine 4.1, BUN 101, serum bicarbonate level 13, lactate 2.9, troponin 0.106, and beta-hydroxybutyrate 1.03. Blood cultures were collected, and CXR showed no acute cardiopulmonary process with suspected bibasilar atelectasis. In
the ER he was given 2 L NS 0.9%, and started on insulin drip for suspected DKA. A-fib with RVR seen on EKG and cardiology consulted to heparin drip was started given elevated [id number] score. Of note he does take metoprolol at home. Patient
was then admitted to the ICU for further care and Grader Tender services consulted for additional management/recommendations.
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
Impression:
# Sepsis likely sec to acute cholecystitis
#DM type II complicated by hyperglycemia (not concern for DKA given urine ketones is negative)
#Nausea/vomiting/diarrhea with poor PO intake over the last 5 days likely due to recent acute gastroenteritis
#RAYMOND on CKD with metabolic acidosis due to prerenal azotemia
#Metabolic acidosis with increased anion gap mainly due to RAYMOND + lactic acidosis
#Lactic acidosis- resolved
#Rapid A-fib (new diagnosis)
#Elevated troponin likely due to demand ischemia with type II NH
#Leukocytosis
#Chronic anemia (baseline Hb 9�11.5g/dL)
#CAD s/p CABG x 3
#Hypertension
#PAD s/p right BKA (OR date: 01/26/[address] Caraballo)
#Hypercholesterolemia
#anemia
Plan:
- Sepsis; Abdominal pain
- High suspicion for acute calculus cholecystitis; patient status post percutaneous cholecystostomy tube placement
- Continue empiric antibiotics; cefepime and Flagyl
- Lipase wnl
- CT abdomen/pelvis with cholelithiasis with mild gallbladder distention surrounding stranding concerning for acute cholecystitis
- usg abdomen with gallbladder sludge; detailed report below
- Hepatobiliary scan with nonvisualization of gallbladder suggesting cystic duct obstruction and possible acute cholecystitis
- Currently on IV 40 mg PPI daily
- Maintain IV fluid for now
- Blood culture and urine culture negative to date; WBC trending down
- Patient presented with severe prerenal azotemia from a suspected gastroenteritis episode that started about 5 days prior to arrival with marked reduction in oral intake with nausea/vomiting/diarrhea
- acidosis resolved
-Creatinine rising again 2.3 today from 2.0 yesterday
- Patient patient was initially placed on DKA insulin protocol however acidosis is likely due to RAYMOND with serum creatinine 4.1 (baseline 1.5�1.6) and urine ketones is negative
-Patient off insulin drip as of now; admitting nurse practitioner following; started on insulin glargine 18 units at bedtime with moderate assist sliding scale
- Avoid hypoglycemia with goal BG >100 and <180
-A-fib; patient informed that he had episode of A-fib many years ago
-Patient in sinus rhythm as of 0830 AM; currently on on heparin; amiodarone was transitioned to po amio by cardio yesterday; patient required Cardizem drip yesterday however it was turned off today at 4 AM patient maintaining normal sinus
and heart rate in the 80s
-updated echo similar to prior (last done in 2014)
-asa 81
- home metoprolol was resumed last evening at 25mg
heparin drip was stopped for 1 hour per protocol given elevated PTT.
--Patient had 2 blackish bowel movements overnight and hemoglobin will recheck Hb at 1230 if Hb is low will reconsult GI. Patient might need transfusion
Continue PPI
Starting clears for now
PT/OOB
- Maintain SpO2 >90-94%
- Aspiration precautions
- Currently denies symptoms of pneumonia
- prn nebulized bronchodilators - not currently bronchospastic
- Incentive spirometer encouraged 10x per hour for at least 4 hrs a da
- Replete electrolytes with K>4, Mg>2
- Maintain euglycemia with goal BG 140-180
- Trend H/H and transfuse if needed to keep Hb>7g/dL; keep plt>20k, unless there is concern for bleeding then keep plt>50k
- DVT ppx: Heparin drip
Continue ICU level care for this critically ill patient
Data:
CXR 05/12/2024:
Lungs appear slightly hypoinflated, with stable elevation right hemidiaphragm.
Patchy parenchymal opacity within the medial aspect of both lower lungs, likely atelectasis.
CT abd/pelvis 05/02/24:
Cholelithiasis with mild gallbladder distention and surrounding stranding concerning for acute cholecystitis. Recommend correlation with right upper quadrant ultrasound.
There is mild wall thickening along the hepatic flexure, possibly reactive mild colitis.
Bibasilar airspace opacities which likely represent atelectasis.
Usg abdomen 05/13/24:
Gallbladder sludge. Cannot exclude minimal gallbladder wall thickening. Negative sonographic Ramirez's sign. No findings to suggest biliary tract dilatation.
Findings suggesting diffuse fatty liver.
Pancreas, abdominal aorta and IVC significantly obscured, most likely by overlying bowel gas.
Subjective Dataa
Subjective Data
Date of Service:
Date of Service: May 15, 2024
Chief Complaint: Grader Tender Follow Up
Subjective:
Patient seen and evaluated in the a.m. today. Reports that he had to dark brown/blackish bowel movements overnight. Vitals in the a.m. with BP 112/53, pulse 79, RR 28, temp 98.2, O2 sat 94% on 4 L via nasal cannula. Patient offers no new
complaints. States that his abdominal pain improved significantly after the procedure(Perc Cholecystostomy)
)
Review of Systems
General: Fever (no)
Cardiopulmonary: Cough (no)
GI: Abdominal Pain (no)
Neuro: Headache (no)
Objective Data
Data Reviewed
Vital Signs / I&O / Oxygen:
Vital Signs
Temp Pulse Resp BP Pulse Ox
98.2 F 79 28 112/53 96
05/15/24 07:18 05/15/24 07:34 05/15/24 07:00 05/15/24 07:34 05/15/24 07:47
Intake and Output
05/14/24 05/15/24 05/16/24
06:59 06:59 06:59
Intake Total 4822.5 / 4822.5 4222.7 / 4272.7 50 / 50
Output Total 2100 / 2100 1200 / 1200
Balance 2722.5 / 2722.5 3022.7 / 3072.7 50 / 50
SaO2 96
Nasal Cannula flow liters per 4
minute
Physical Exam
General: Comfortable
Cardiovascular: S1-S2 and Regular Rhythm
Respiratory: Non-Labored Respirations
GI: Soft, Non Distended, Non Tender (Ramirez's negative) and Other (cholecystostomy tube in place)
Neurology: Awake, Alert and Oriented
Skin: Warm, Dry and Other (Right BKA)
Labs/Micro/Reports
Lab Data
05/15/24 04:26
05/15/24 04:26
Laboratory Results
05/14/24 05/14/24 05/15/24
10:03 17:38 04:26
APTT 85.7 H 74.8 H 154.6 H*
Microbiology
05/12/24 11:51 Blood/Venous Blood Culture - Preliminary
No Growth in 48 hours- Final report to follow
05/12/24 11:51 Blood/Venous Blood Culture - Preliminary
No Growth in 48 hours- Final report to follow
05/12/24 13:02 Urine Urine Culture - Final
NO GROWTH
--- NOTE | 2024-05-15 08:05 | W.PN.HOSP.TC ---
Today's Communication/Plan
-
see plan
Assessment / Plan
Assessment / Plan
Gen: NAD, AAOx3.
Eyes: EOMI, PERRLA, no scleral icterus.
Neck: supple.
CV: RRR, +S1/S2, no m/r/g.
Resp: CTAB anteriorly, no rales, wheezes, or rhonchi.
Abd: +BS, soft, NT to mod palpation, ND
Skin: No rashes.
Neuro: CN 2-12 intact, non-focal.
Psych: Normal mood and affect.
05/12/24 11:51 Blood/Venous Blood Culture - Preliminary
No Growth in 48 hours- Final report to follow
05/12/24 11:51 Blood/Venous Blood Culture - Preliminary
No Growth in 48 hours- Final report to follow
05/12/24 13:02 Urine Urine Culture - Final
NO GROWTH
CT C/A/P: Cholelithiasis with mild gallbladder distention and surrounding stranding concerning for acute cholecystitis. Recommend correlation with right upper quadrant ultrasound. There is mild wall thickening along the hepatic flexure, possibly
reactive mild colitis. Bibasilar airspace opacities which likely represent atelectasis.
RUQ U/S: Gallbladder sludge. Cannot exclude minimal gallbladder wall thickening. Negative sonographic Ramirez's sign. No findings to suggest biliary tract dilatation. Findings suggesting diffuse fatty liver. Pancreas, abdominal aorta and IVC
significantly obscured, most likely by overlying bowel gas.
HIDA: Patent common bile duct. Nonvisualization of the gallbladder suggesting cystic duct obstruction and possible acute cholecystitis.
Acute diabetic ketoacidosis:
-Due to insulin noncompliance due to abdominal pain due to acute cholecystitis
-RAYMOND on CKD3b due to volume contraction due to DKA and hypotension due to septic shock, POA
-cont IVFs
-AG now closed
-transitioning to Lantus from insulin gtt
-SSI/accuchecks
-diabetes CLAY MIXER following
-Note, anion gap metabolic acidosis was due to combination of DKA, RAYMOND, and lactic acidosis
Septic shock due to acute cholecystitis:
-imaging above
-cont Cefepime/Flagyl
-BCxs NGTD
-Acute nonischemic myocardial injury due to septic shock
-Was on Levophed, then Jhoan-Synephrine, now off pressors
-surgery following, ASA/Plavix was held, ASA now restarted
-s/p perc darrian on 05/14/24
Afib with RVR:
-converted to SR 05/13/24AM
-was on Amio gtt, then transitioned to PO Amio
-cont heparin gtt
-then converted back to afib with RVR on 05/14/24, cardizem gtt started
-cont BB
Other problems:
HLD: cont statin
Essential HTN: holding home antihypertensives
PAD: cont statin/ASA/Plavix
R BKA
Renal calculi
Hyponatremia, resolved
RN updated
Anticipated Discharge: > 48 hours
Subjective/Interval History
-
Date of Service: May 15, 2024
Denies CP/SOB. Abdominal pain has significantly improved.
Objective Data
-
Labs:
Laboratory Results
05/15/24 05/15/24
04:26 12:30
WBC 14.2 H
Hgb 7.7 L
Hct 22.6 L
Plt Count 238
APTT 154.6 H* Pending
Sodium 136
Potassium 4.1
Chloride 108 H
Carbon Dioxide 19 L
BUN 83 H
Creatinine 2.3 H
Glucose 190 H
Calcium 7.1 L
Vital Signs:
Vital Signs
Temp Pulse Resp BP Pulse Ox
98.2 F 79 28 112/53 96
05/15/24 07:18 04/02/25 07:34 05/15/24 07:00 05/15/24 07:34 05/15/24 07:47
I&O
05/14/24 05/15/24 05/16/24
06:59 06:59 06:59
Intake Total 4822.5 / 4822.5 4222.7 / 4272.7 50 / 50
Output Total 2099 / 2099 1200 / 1200
Balance 2722.5 / 2722.5 3022.7 / 3072.7 50 / 50
--- NOTE | 2024-05-15 08:40 | W.PN.NEPH.PH ---
Today's Communication / Plan
-
Follow BMP
Okay to maintain low-dose lactated ringer
Assessment/Plan
-
IMP:
DKA
RAYMOND with CKD stage 3b baseline cr 1.4-1.7
Hypotension/?septic shock
suspected cholecystitis on CT
AFib with RVR
Elevated TPNI : NIMI
BPH
H/o U retention
Hypoantremia
Hypokalemia
hypocalcemia
Hypoalbuminemia
HLD
CAD s/p CABG
PAD Rt BKA
Renal calculi
Anemia of chronic disease
DM type 2 with circulatory complications
Non compliance
Plan:
A/w abd pain, CT concern of cholecystitis and noted hypotension on pressors and DKA
RAYMOND-highly suspect prerenal, cr improving from peak at 4.2 to 2.3, non oliguric
however seem to have high PVR-monitor, low threshold for bosch , no hydro on CT
UA mild microhematuria and 2+alb-check U PCR 700mg/gm of cr
met acidosis worsening, okay to maintain low dose lactated ringer
avoid nephrotoxins
BP soft with afib RVR, on Amio and heparin gtt
for IR cholecystostomy tube today
d/w pt and nursing
he will benefit from following nephro out pt
-
-
Date of Service: May 15, 2024
CC / HPI / ROS
-
Chief Complaint:
RAYMOND
History of Present Illness:
Creatinine bump up to 2.3
Metabolic acidosis persist
BP soft with afib RVR
Review of Systems:
no cp or sob
abd pain no change
Nonoliguric
Labs
-
Labs:
WBC 14.2 10^3/uL (4.8-10.8) H 05/15/24 04:26
RBC 2.63 10^6/uL (4.70-6.10) L 05/15/24 04:26
Hgb 7.7 g/dL (13.0-18.0) L 05/15/24 04:26
Hct 22.6 % (39.0-52.0) L 05/15/24 04:26
Plt Count 238 10^3/uL (130-400) 05/15/24 04:26
Sodium 136 mmol/L (135-145) 05/15/24 04:26
Potassium 4.1 mmol/L (3.5-5.1) 05/15/24 04:26
Chloride 108 mmol/L (98-107) H 05/15/24 04:26
Carbon Dioxide 19 mmol/L (22-30) L 05/15/24 04:26
BUN 83 mg/dl (9-20) H 05/15/24 04:26
Creatinine 2.3 mg/dL (0.7-1.3) H 05/15/24 04:26
eGFR 29.25 05/15/24 04:26
Glucose 190 mg/dl (70-99) H 05/15/24 04:26
Calcium 7.1 mg/dl (8.4-10.2) L 05/15/24 04:26
Phosphorus 2.8 mg/dl (2.5-4.5) 05/13/24 04:26
Albumin 2.3 g/dl (3.5-5.0) L 05/13/24 04:26
Physical Exam
-
Vital Signs:
Vital Signs
Temp Pulse Resp BP Pulse Ox
98.2 F 79 28 112/53 94
05/15/24 07:18 05/15/24 07:34 05/15/24 07:00 05/15/24 07:34 05/15/24 08:20
Cardiovascular:: Irregular rate and rhythm
Respiratory:: Bilateral: CTA
Lung Excursion:: Normal
Abdomen:: Nontender and Soft
Bowel Sounds:: Normal
Extremity Edema:: None: Left:
Bosch Catheter: No
Other Findings::
right BKA stump
Choley ube
--- NOTE | 2024-05-15 09:53 | PTCARENOTE ---
Assumed care of pt from night coordinator RN. AAOx3. NSR on tele, HRs 70s-80s. Pt remains off Cardizem gtt. Weaned O2 back down to 2L on nasal cannula, SpO2 95% on 2L. RUQ darrian drain with dark brown drainage in collection bag. Dressing CDI. Heparin gtt
infusing at 1000 units/hr. Next PTT due at 1230. Hgb down to 7.7 this morning. Pt with heme positive stools overnight. Repeat H&H ordered for 1230. Plan is to maintain Heparin gtt until repeat H&H resulted and reassess. Will re-consult GI if pt
continues with dark stools and Hgb continues to trend down. LR infusing at 40mL/hr. Pt remains NPO at this time. Portable CXR ordered this AM, showing mild mid right lung atelectasis and moderate elevation of right hemidiaphragm. IS given to pt and
will encourage OOB to chair today. Pt resting in bed at this time, call abbott in reach.
--- NOTE | 2024-05-15 11:11 | W.PN.CARDCBS ---
Today's Communication / Plan
-
Back in sinus rhythm. Continue amiodarone 400 mg p.o. 3 times daily.
Continue IV heparin. Will eventually need likely aspirin and Eliquis.
Creatinine at 2.3. LVEF is overall preserved. Watch weight and fluids. Hyponatremia is also improved
Okay for percutaneous tubes. Continue antibiotics
Impression / Plan
-
.
Primary mine utility operator: Dr. Jony Rojas
Primary care physician, Dr. Gene Banks
Impression:
DKA
Acute on chronic renal failure
Hypotension
Paroxysmal atrial fibrillation with RVR
Leukocytosis
Non-[place] troponin elevation, 0.1 peak
Anemia with history of anemia
Hx CABG x 3 VALIENTE to LAD and sequential vein graft to OM and right PLB 2014
Diabetes mellitus type 2
Right bundle branch block
Hyperlipidemia
Peripheral arterial disease
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
History noncompliance
LVH
Echo July 2014: EF 55% with moderate LVH and no significant valvular disease.
Technically difficult study.
Normal left ventricular size and systolic function. Normal left ventricular
wall thickness. No regional wall motion abnormalities are seen. LV ejection
fraction is 50%.
Mild mitral regurgitation.
Mild tricuspid regurgitation.
Compared to previous echo from July 2014, there is now mild MR
Plan:
He is back in sinus rhythm today. Still having paroxysms of atrial fibrillation. Continue oral amiodarone 400 mg p.o. 3 times daily. Continue IV heparin.
Will eventually need to add Eliquis or Xarelto. Plan is for percutaneous tubes for cholecystitis
Patient receiving IV fluids, volume resuscitation
Amlodipine and metoprolol were held in setting of hypotension
Creatinine overall stable in the 2-2.3 range. Nephrology following.
Echocardiogram May 13 2024: EF 50% with mild MR and mild TR
Troponin peaked at 0.1, medical therapy for now for nonischemic myocardial injury.
Continue DKA treatment as per primary service and design technician.
Leukocytosis, improving, workup and evaluation for infection as per primary service.
Cont ASA.
He had been on dual antiplatelet therapy likely for recent BKA peripheral arterial disease. Would review with vascular regarding duration of Plavix therapy. As he needs full anticoagulation would likely stop Plavix and use aspirin and Eliquis.
Continue abx.
Progress Note - Email Marketing Coordinator
Subjective
Date of Service: May 15, 2024
Back in sinus rhythm today. He denies palpitations or chest pains.
Objective
Labs:
05/15/24 04:26
Labs
Hgb 7.7 g/dL (13.0-18.0) L 05/15/24 04:26
Hct 22.6 % (39.0-52.0) L 05/15/24 04:26
Plt Count 238 10^3/uL (130-400) 05/15/24 04:26
PT 17.0 Sec (11.4-14.6) H 05/12/24 11:18
INR 1.35 05/12/24 11:18
APTT 154.6 Sec (23.4-35.0) H* 05/15/24 04:26
Sodium 136 mmol/L (135-145) 05/15/24 04:26
Potassium 4.1 mmol/L (3.5-5.1) 05/15/24 04:26
BUN 83 mg/dl (9-20) H 05/15/24 04:26
Creatinine 2.3 mg/dL (0.7-1.3) H 05/15/24 04:26
Glucose 190 mg/dl (70-99) H 05/15/24 04:26
Troponins
05/12/24 05/12/24 05/13/24
11:18 22:09 04:26
Troponin I 0.106 H* 0.098 H* 0.086 H*
05/13/24
05:00
Troponin I Cancelled
Vital Signs and I&O:
Vital Signs
Temp Pulse Resp BP Pulse Ox
98.4 F 79 28 112/53 94
05/15/24 11:04 05/15/24 07:34 05/15/24 07:00 05/15/24 07:34 05/15/24 08:20
Vital Signs
Temp Pulse Resp BP Pulse Ox
98.4 F 79 28 112/53 94
05/15/24 11:04 05/15/24 07:34 05/15/24 07:00 05/15/24 07:34 05/15/24 08:20
Intake & Output
05/13/24 05/14/24 05/15/24 05/16/24
06:59 06:59 06:59 06:59
Intake Total 3901.45 / 4196.25 4822.5 / 4822.5 4222.7 / 4272.7 350 / 350
Output Total 1050 / 1050 2100 / 2100 1200 / 1200
Balance 2851.45 / 3146.25 2722.5 / 2722.5 3022.7 / 3072.7 350 / 350
Physical Exam
Physical Exam
GEN: No distress, awake, Ox3
HEENT: supple, anicteric, mmm
LUNGS: CTA, no wheezes/rales
CV: Reg, S1/S2, 1/6 syst LSB, no gallop
ABD: soft, BS+, + tenderness
EXT: No edema
NEURO: Gross non-focal
SKIN: No rash
[2024-05-15 11:58] LABS: Glucose - Point of Care 183 mg/dl (70-99)
[2024-05-15] MEDS: NOVOLOG FLEXPEN-MODERATE RESISTANCE 1 UNITS SC (12:13)
[2024-05-15 12:25] LABS: Hematocrit 22.2 % (39.0-52.0); Hemoglobin 7.8 g/dL (13.0-18.0)
[2024-05-15 12:30] LABS: APTT 99.4 Sec (23.4-35.0)
--- NOTE | 2024-05-15 12:37 | PTCARENOTE ---
Repeat H&H resulted with Hgb of 7.8, will continue Heparin gtt per protocol. PTT pending. IVF discontinued. Assessment unchanged. Pt unwilling to get OOB to chair at this time. Pt remains in bed, call abbott in reach. Family at bedside.
--- NOTE | 2024-05-15 14:49 | W.PN.GS2 ---
Today's Communication / Plan
-
ADAT
IV abx
Assessment / Plan
-
Patient is a 74 yo M p/w septic shock likely secondary to acute cholecystitis, PPD1 s/p perc darrian tube, shock has resolved
US with gallbladder sludge, unable to appreciate significant wall thickening, negative sonographic Ramirez sign no biliary ductal dilation
CT with distended gallbladder and sludge, pericholecystic inflammation, mild wall thickening
HIDA with nonvisualization of the gallbladder
Improving, off pressors, all Cx NGTD (bile and blood)
-- OK to ADAT, would start with CLD
-- Abx: Cefepime and Flagyl
-- IVF per Nephrology
-- OK to transition to PO A/C per Cards
-- OK for step down out of ICU
-- Will follow
Subjective Data
-
Date of Service: May 15, 2024
Improving, denies abd pain, endorses intermittent mild nausea, passing flatus
Objective Data
-
Intake and Output
05/14/24 05/15/24 05/16/24
06:59 06:59 06:59
Intake Total 4822.5 / 4822.5 4222.7 / 4272.7 420 / 420
Output Total 2100 / 2100 1200 / 1200 400 / 400
Balance 2722.5 / 2722.5 3022.7 / 3072.7 20 / 20
Intake:
Oral fluids 240 / 240
IV fluids (Total) 3582.5 / 3582.5 3912.7 / 3962.7 320 / 320
Lr 1,000 ml @ 40 mls/hr IV . 1200 / 1240 240 / 240
Q24H JENNIFER Rx#:[id number]
Sterile Water For Injection 450 / 450
1000 ml 1,000 ml @ 150 mls/hr
IV .Q7H40M JENNIFER with Sodium
Bicarbonate 150 Meq Rx#:
[id number]
amiodarone 517.1 / 517.1 50.1 / 50.1
cardizem 140 / 140
flagyl 100 / 100 200 / 200
heparin 322 / 322 216 / 226 80 / 80
insulin 49.4 / 49.4 6.6 / 6.6
ivf 1800 / 1800 2100 / 2099
k rider 270.0 / 270.0
mag 50 / 50
ronan 24 / 24
IV piggybacks 1000 / 1000 300 / 300 100 / 100
Amount instilled into Drain (
Total)
Right Abdomen Biliary Placed in
IR
Output:
Drain Output (Total) 125 / 125
Right Abdomen Biliary Placed in 125 / 125
IR
Urine, Voided 2099 1075 / 1075 400 / 400
Other:
Number of approximated MODERATE 1
amounts of urine
Vital Signs
Temp Pulse Resp BP Pulse Ox
98.4 F 82 20 134/57 95
05/15/24 11:04 05/15/24 13:21 05/15/24 13:21 05/15/24 13:21 05/15/24 13:21
Lab Results
05/15/24 12:10
05/15/24 04:26
Calcium 7.1 mg/dl (8.4-10.2) L 05/15/24 04:26
Phosphorus 2.8 mg/dl (2.5-4.5) 05/13/24 04:26
Magnesium 2.0 mg/dl (1.6-2.3) 05/15/24 04:26
Total Bilirubin 0.4 mg/dl (0.2-1.3) 05/13/24 04:26
Direct Bilirubin 0.3 mg/dl (0.0-0.4) 05/13/24 04:26
AST 42 U/L (17-59) 05/13/24 04:26
ALT 44 U/L (0-50) 05/13/24 04:26
Alkaline Phosphatase 118 U/L (38-126) 05/13/24 04:26
Total Protein 4.7 g/dl (6.3-8.2) L 05/13/24 04:26
Albumin 2.3 g/dl (3.5-5.0) L 05/13/24 04:26
Physical Exam
-
Gen: NAd
Abd: soft, nt, drain with isabel/brown bilious contents
--- NOTE | 2024-05-15 16:39 | PTCARENOTE ---
Diet advanced to full liquids. Pt still refusing to get OOB to chair. Assessment otherwise unchanged. PTT due at 181. If therapeutic pt will be daily PTT.
[2024-05-15 17:24] LABS: Glucose - Point of Care 214 mg/dl (70-99)
[2024-05-15 18:37] LABS: APTT 92.3 Sec (23.4-35.0)
[2024-05-15] MEDS: DESYREL 25 MG PO (22:23)
[2024-05-15] MEDS: FLOMAX 0.4 MG PO (22:23)
[2024-05-15] MEDS: LANTUS 0.18 UNITS SC (22:24)
[2024-05-15 22:34] LABS: Glucose - Point of Care 262 mg/dl (70-99)
--- NOTE | 2024-05-15 23:28 | PTCARENOTE ---
PTT therapeutic x2, next lab due in AM. pt SR on monitor, on 2L NC, denies pain, CHG bath done and pt brushed teeth. BM x2 so far overnight. call abbott in reach
[2024-05-16] VITALS (19 sets, daily range): BP systolic 96–148; BP diastolic 51–70; PULSE 82–83; O2SAT 96–97; BMI 25.4
[2024-05-16] MEDS: MAXIPIME 1000 MG IV ×3 (02:54→16:52)
[2024-05-16] MEDS: STERILE WATER FOR INJECTION 10 ML IV ×3 (02:54→16:53)
[2024-05-16] MEDS: FLAGYL 500 MG 100 IV ×3 (02:54→16:58)
--- NOTE | 2024-05-16 04:11 | PTCARENOTE ---
AM labs sent. assessment unchanged, call abbott in reach
[2024-05-16 04:26] LABS: Hematocrit 22.6 % (39.0-52.0); Hemoglobin 7.9 g/dL (13.0-18.0); Mean Corpuscular Hgb 29.8 pg (27.0-31.0); Mean Corpuscular Volume 85.3 fL (80.0-94.0); Mean Platelet Volume 9.6 fL (7.4-10.4); Platelet Count 271 10^3/uL (130-400); Red Blood Cell Count 2.65 10^6/uL (4.70-6.10); White Blood Cell Count 10.9 10^3/uL (4.8-10.8)
[2024-05-16 04:36] LABS: APTT 90.1 Sec (23.4-35.0)
[2024-05-16 05:37] LABS: Blood Urea Nitrogen 74 mg/dl (9-20); Calcium 7.4 mg/dl (8.4-10.2); Carbon Dioxide 22 mmol/L (22-30); Chloride 110 mmol/L (98-107); Estimated Creatinine Clearance 39 ml/min; Glucose 194 mg/dl (70-99); Potassium 3.6 mmol/L (3.5-5.1); Sodium 137 mmol/L (135-145); eGFR 34.59
[2024-05-16] MEDS: HEPARIN 25000 UNITS/250 ML IV (07:36)
[2024-05-16] MEDS: LOW STRENGTH ASPIRIN 81 MG PO (07:38)
[2024-05-16] MEDS: LIPITOR 40 MG PO (07:38)
[2024-05-16] MEDS: TOPROL XL 25 MG PO (07:38)
[2024-05-16] MEDS: TYLENOL 1000 MG PO ×2 (07:38→16:01)
[2024-05-16] MEDS: PACERONE 400 MG PO ×3 (07:39→22:55)
[2024-05-16] MEDS: PROTONIX IV 40 MG IV (07:39)
[2024-05-16] MEDS: NOVOLOG FLEXPEN-MODERATE RESISTANCE 3 UNITS SC (07:39)
[2024-05-16] MEDS: NSS (PRESERVATIVE FREE) 10 ML IV (07:39)
[2024-05-16 07:49] LABS: Glucose - Point of Care 215 mg/dl (70-99)
--- NOTE | 2024-05-16 07:55 | W.PN.INTV ---
Addendum entered and electronically signed by Nimo Starks MD 05/16/24 11:22:
Remains on cefepime/Flagyl for acute cholecystitis
Treatment course to be determined by clinical status/surgery, primary service
Percutaneous Charline tube remains in place
Addendum entered and electronically signed by Nimo Starks MD 05/16/24 11:21:
Patient seen and examined independently by myself. Resident note reviewed below. Reviewed plan during rounds
Patient is without complaints, abdominal pain has resolved. Primary complaint is fatigue. Unfortunate refusing to get out of bed to chair multiple times throughout the day yesterday.
Blood pressure stable, tachycardia improved. Remains afebrile, 96%. Negative fluid balance noted. Hemoglobin 7.9, heme positive stool, remains on heparin drip
Poor dentition
Chest exam is clear, no crackles
Regular rate rhythm, no murmurs
Abdominal exam soft. Right quadrant percutaneous cholecystostomy tube
Right BKA, no edema
Moves all extremities
Data reviewed. Hemoglobin 7.9
A/P
Patient continues to do well, remains off pressors, heart rate improved, abdominal pain improved.
Elevated blood sugars noted
Will increase insulin, resume outpatient regimen
Continue to follow hemoglobin, remains on heparin, also on Plavix. Aspirin is held
Maintain active type and screen
GI was following patient but they signed off.
If continues to have heme positive stool and/your hemoglobin decreases, may require reevaluation by GI
Continue heparin for now
Advance diet, tolerating. IV fluids discontinued
Recommended out of bed to chair. Patient refusing
Will continue with efforts to increase activity, PT/OT
Reviewed with patient, critical care nursing, respiratory care, pharmacy
Reviewed with primary service
For transfer out of ICU. We will sign off. Please call with questions
Original Note:
Today's Communication / Plan
Recommendations
Type and screen in the a.m.
Start short acting insulin and 5 units, increase glargine to 20 units
Advance diet to diabetic diet
OOB to chair
Continue antibiotics
Patient in sinus rhythm will eventually need oral anticoag
P.o. KCl 20 MEQ today
Okay to downgrade from ICU to telemetry
Assessment
-
Assessment: 74-year-old male with a past medical history of PAD s/p right BKA, CAD s/p CABG x 3, DM type II, hypercholesterolemia and history of cataracts who presents with right-sided rib pain. He denies any recent injury or trauma. When EMS
arrived his blood pressure was low and blood glucose was 477. Patient felt weak and unwell. Upon further history he has been having upper abdominal discomfort for 5 days and not eating much. He was not taking his short acting insulin but was
taking his Lantus. In the ER he was afebrile to 98.1 �F, pulse rate 166 with rapid A-fib (new diagnosis), respiratory rate 20, BP 71/48 and saturating 98% on room air. Labs showed leukocytosis to 19.8, Hb 11.7, pH 7.26, pCO2 34, sodium 134,
glucose 398, creatinine 4.1, BUN 101, serum bicarbonate level 13, lactate 2.9, troponin 0.106, and beta-hydroxybutyrate 1.03. Blood cultures were collected, and CXR showed no acute cardiopulmonary process with suspected bibasilar atelectasis. In
the ER he was given 2 L NS 0.9%, and started on insulin drip for suspected DKA. A-fib with RVR seen on EKG and cardiology consulted to heparin drip was started given elevated [id number] score. Of note he does take metoprolol at home. Patient
was then admitted to the ICU for further care and Trailer Body Assembler services consulted for additional management/recommendations.
Chronic conditions SYSTEM SUPPORT TECHNICIAN: PAD, hypercholesterolemia, DM type II, history of cataract surgery, hypertension, CAD s/p CABG
Impression:
# Sepsis likely sec to acute cholecystitis
#DM type II complicated by hyperglycemia (not concern for DKA given urine ketones is negative)
#Nausea/vomiting/diarrhea with poor PO intake over the last 5 days likely due to recent acute gastroenteritis
#RAYMOND on CKD with metabolic acidosis due to prerenal azotemia
#Metabolic acidosis with increased anion gap mainly due to RAYMOND + lactic acidosis
#Lactic acidosis- resolved
#Rapid A-fib (new diagnosis)
#Elevated troponin likely due to demand ischemia with type II AR
#Leukocytosis
#Chronic anemia (baseline Hb 9�11.5g/dL)
#CAD s/p CABG x 3
#Hypertension
#PAD s/p right BKA (OR date: 01/26/[address] Caraballo)
#Hypercholesterolemia
#anemia
Plan:
- Sepsis; Abdominal pain
- High suspicion for acute calculus cholecystitis; patient status post percutaneous cholecystostomy tube placement POD #2
- Continue empiric antibiotics; cefepime and Flagyl
- CT abdomen/pelvis with cholelithiasis with mild gallbladder distention surrounding stranding concerning for acute cholecystitis
- usg abdomen with gallbladder sludge; detailed report below
- Hepatobiliary scan with nonvisualization of gallbladder suggesting cystic duct obstruction and possible acute cholecystitis
- Currently on IV 40 mg PPI daily
- Discontinue IV fluid; advance diet as tolerated currently on fulls and tolerating well; advance to diabetic diet
- Blood culture and urine culture negative to date; WBC trending down
- Patient presented with severe prerenal azotemia from a suspected gastroenteritis episode that started about 5 days prior to arrival with marked reduction in oral intake with nausea/vomiting/diarrhea
- acidosis resolved
- Creatinine improving; 2.0 today
- Patient patient was initially placed on DKA insulin protocol however acidosis is likely due to RAYMOND with serum creatinine 4.1 (baseline 1.5�1.6) and urine ketones is negative
-Patient off insulin drip as of now; admitting nurse practitioner following; started on insulin glargine 18 units at bedtime with moderate assist sliding scale.
-Resume lispro 4 units with meals
-Avoid hypoglycemia with goal BG >100 and <180
-A-fib; patient informed that he had episode of A-fib many years ago
-Patient in sinus rhythm as of 0800 AM; currently on on heparin drip; p.o. amiodarone
-updated echo similar to prior (last done in 2014)
-asa 81
- home metoprolol at 25mg
- Will eventually need likely aspirin and Eliquis
--Hb stable; no obvious bleeding
PT/OOB
- Maintain SpO2 >90-94%
- Aspiration precautions
- Currently denies symptoms of pneumonia
- prn nebulized bronchodilators - not currently bronchospastic
- Incentive spirometer encouraged 10x per hour for at least 4 hrs a day
- Replete electrolytes with K>4, Mg>2
- Maintain euglycemia with goal BG 140-180
- Trend H/H and transfuse if needed to keep Hb>7g/dL; keep plt>20k, unless there is concern for bleeding then keep plt>50k
- DVT ppx: Heparin drip
Data:
CXR 05/12/2024:
Lungs appear slightly hypoinflated, with stable elevation right hemidiaphragm.
Patchy parenchymal opacity within the medial aspect of both lower lungs, likely atelectasis.
CT abd/pelvis 05/02/24:
Cholelithiasis with mild gallbladder distention and surrounding stranding concerning for acute cholecystitis. Recommend correlation with right upper quadrant ultrasound.
There is mild wall thickening along the hepatic flexure, possibly reactive mild colitis.
Bibasilar airspace opacities which likely represent atelectasis.
Usg abdomen 05/13/24:
Gallbladder sludge. Cannot exclude minimal gallbladder wall thickening. Negative sonographic Ramirez's sign. No findings to suggest biliary tract dilatation.
Findings suggesting diffuse fatty liver.
Pancreas, abdominal aorta and IVC significantly obscured, most likely by overlying bowel gas.
Subjective Dataa
Subjective Data
Date of Service:
Date of Service: May 16, 2024
Chief Complaint: Trailer Body Assembler Follow Up
Subjective:
Patient seen evaluated in the a.m. today. Lying in the bed comfortably. Offers no new complaints. Vitals in the morning with blood pressure 141/62, pulse 85, RR 18, temp 98, O2 sat 95%
Review of Systems
General: Fever (No)
Cardiopulmonary: Cough (No)
GI: Abdominal Pain (No) and Nausea (No)
Neuro: Headache (No)
Objective Data
Data Reviewed
Vital Signs / I&O / Oxygen:
Vital Signs
Temp Pulse Resp BP Pulse Ox
98 F 82 16 137/62 96
05/16/24 07:39 05/16/24 06:00 05/16/24 06:00 05/16/24 06:00 05/16/24 06:00
Intake and Output
05/15/24 05/16/24 05/17/24
06:59 06:59 06:59
Intake Total 4222.7 / 4272.7 1300 / 1300
Output Total 1200 / 1200 2330 / 2330
Balance 3022.7 / 3072.7 -1030 / -1030
SaO2 96
Nasal Cannula flow liters per 2
minute
Physical Exam
General: Comfortable
Cardiovascular: S1-S2 and Regular Rhythm
Respiratory: Non-Labored Respirations
GI: Soft, Non Distended, Non Tender (Ramirez's negative) and Other (cholecystostomy tube in place)
Neurology: Awake, Alert and Oriented
Skin: Warm, Dry and Other (Right BKA)
Labs/Micro/Reports
Lab Data
05/16/24 04:07
05/16/24 04:07
Laboratory Results
05/15/24 05/15/24 05/16/24
12:10 18:07 04:07
APTT 99.4 H 92.3 H 90.1 H
Microbiology
05/14/24 06:00 Bile Body Fluid Culture - Preliminary
No Growth After 18-24 Hours
05/14/24 06:00 Bile Gram Stain - Preliminary
05/12/24 11:51 Blood/Venous Blood Culture - Preliminary
No Growth in 72 hours- Final report to follow
05/12/24 11:51 Blood/Venous Blood Culture - Preliminary
No Growth in 72 hours- Final report to follow
05/12/24 13:02 Urine Urine Culture - Final
NO GROWTH
--- NOTE | 2024-05-16 08:22 | PTCARENOTE ---
pt received from previous rn- aox3, on 2LNC, sr with bbb on monitor. pt with complaint of mild abdominal pain- see mar. right upper quad. perc drain flushed as per order, brown drainage. pt turns and repositions self- educated about plan of care for
shift- verbalized understanding. pt/ot consult placed. heparin gtt continues as per order. all safety precautions in place, call abbott within reach.
--- NOTE | 2024-05-16 08:37 | W.PN.NEPH.PH ---
Today's Communication / Plan
-
Observe
Follow BMP
IV fluids
Assessment/Plan
-
IMP:
DKA
RAYMOND with CKD stage 3b baseline cr 1.4-1.7
Hypotension/?septic shock
suspected cholecystitis on CT
AFib with RVR
Elevated TPNI : NIMI
BPH
H/o U retention
Hypoantremia
Hypokalemia
hypocalcemia
Hypoalbuminemia
HLD
CAD s/p CABG
PAD Rt BKA
Renal calculi
Anemia of chronic disease
DM type 2 with circulatory complications
Non compliance
Plan:
A/w abd pain, CT concern of cholecystitis and noted hypotension on pressors and DKA
RAYMOND-highly suspect prerenal, cr improving from peak at 4.2 to 2.0 non oliguric ~ 2liters
however seem to have high PVR-monitor, low threshold for bosch , no hydro on CT
UA mild microhematuria and 2+alb-check U PCR 700mg/gm of cr: Likely related to diabetic nephropathy
met acidosis stable
avoid nephrotoxins
Hemodynamically more stable
for IR cholecystostomy tube today
Chest x-ray from 4-25 without evidence of congestive heart failure
Diet advancing no need for further IV fluids at this
d/w pt and nursing
-
-
Date of Service: May 16, 2024
CC / HPI / ROS
-
Chief Complaint:
RAYMOND
History of Present Illness:
Creatinine down to 2
Metabolic acidosis persists but improved
Hemodynamically stable
Review of Systems:
no cp or sob
abd pain no change
Nonoliguric but weights up
Labs
-
Labs:
WBC 10.9 10^3/uL (4.8-10.8) H 05/16/24 04:07
RBC 2.65 10^6/uL (4.70-6.10) L 05/16/24 04:07
Hgb 7.9 g/dL (13.0-18.0) L 05/16/24 04:07
Hct 22.6 % (39.0-52.0) L 05/16/24 04:07
Plt Count 271 10^3/uL (130-400) 05/16/24 04:07
Sodium 137 mmol/L (135-145) 05/16/24 04:07
Potassium 3.6 mmol/L (3.5-5.1) 05/16/24 04:07
Chloride 110 mmol/L (98-107) H 05/16/24 04:07
Carbon Dioxide 22 mmol/L (22-30) 05/16/24 04:07
BUN 74 mg/dl (9-20) H 05/16/24 04:07
Creatinine 2.0 mg/dL (0.7-1.3) H 05/16/24 04:07
eGFR 34.59 05/16/24 04:07
Glucose 194 mg/dl (70-99) H 05/16/24 04:07
Calcium 7.4 mg/dl (8.4-10.2) L 05/16/24 04:07
Phosphorus 2.8 mg/dl (2.5-4.5) 05/13/24 04:26
Albumin 2.3 g/dl (3.5-5.0) L 05/13/24 04:26
Physical Exam
-
Vital Signs:
Vital Signs
Temp Pulse Resp BP Pulse Ox
98 F 85 18 141/62 95
05/16/24 07:39 05/16/24 08:00 05/16/24 08:00 05/16/24 08:00 05/16/24 08:00
Cardiovascular:: Irregular rate and rhythm
Respiratory:: Bilateral: CTA
Lung Excursion:: Normal
Abdomen:: Nontender and Soft
Bowel Sounds:: Normal
Extremity Edema:: None: Left:
Bosch Catheter: No
Other Findings::
right BKA stump
Choley ube
--- NOTE | 2024-05-16 09:40 | PN.DE.MGMTRT ---
Insulin Management
- -
05/16/2024: Diabetes Management Consult Follow up
74 year old male who p/w right-sided rib pain. When EMS arrived his blood pressure was low and blood glucose was 477.
PMH: ASCVD, CAD s/p CABG x 3, HTN, HLD, CKD IIIb, REGGIE, Anemia of CKD, PAD s/p right BKA, hypercholesterolemia and DM type II.
Patient known to diabetes team from multiple admissions. States he was not eating for 5 days PILL COATER due to upper abdominal discomfort and was not taking his short acting insulin but was taking his Lantus. Prior to admission was taking Lantus 17 units @
hs and Humalog 7 units with meals. Last A1C was 8.8% in December 2023, current A1C 7.7%. Cr 2.7, eGFR 24.13.
Pt awake, alert, resting in bed, c/o mild pain, feels better but tired, able to discuss diabetes mgt. Diet advanced to 1800 calories. Friends @ bedside, very supportive.
4/2 Glucose range 183 to 262, after clear liquids started. HS lantus increased to 18 units.
/3 Fasting glucose 215, will increase HS lantus 20 units tonight. Will resume AC novolog 8 units with moderate corrective.
Discussed with nurse.
Will follow.
Diabetes History
- -
Type of Diabetes: 2 requiring insulin
Pre-Admission Diabetes Regimen
05/16/24
04:07
Creatinine 2.0 H
Lab Results
Hemoglobin A1c 7.7 % (4.0-5.6) H 05/13/24 04:26
Insulin Pump Settings
IP Diabetes Regimen
05/15/24 05/15/24 05/15/24
11:47 17:12 22:22
Glucose
POC Glucose 183 H 214 H 262 H
05/16/24 05/16/24
04:07 07:37
Glucose 194 H
POC Glucose 215 H
Meal type: Breakfast
Meal type: Dinner
Amount consumed: 50%
Patient Education
--- NOTE | 2024-05-16 10:00 | W.PN.HOSP.TC ---
Today's Communication/Plan
-
see plan
Assessment / Plan
Assessment / Plan
Gen: NAD, AAOx3.
Eyes: EOMI, PERRLA, no scleral icterus.
Neck: supple.
CV: remains RRR, +S1/S2, no m/r/g.
Resp: remains CTAB anteriorly, no rales, wheezes, or rhonchi.
Abd: +BS, soft, NT, ND
Skin: No rashes.
Neuro: CN 2-12 intact, non-focal.
Psych: Normal mood and affect.
05/14/24 06:00 Bile Body Fluid Culture - Preliminary
No Growth After 18-24 Hours
05/14/24 06:00 Bile Gram Stain - Preliminary
05/12/24 11:51 Blood/Venous Blood Culture - Preliminary
No Growth in 72 hours- Final report to follow
05/12/24 11:51 Blood/Venous Blood Culture - Preliminary
No Growth in 72 hours- Final report to follow
05/12/24 13:02 Urine Urine Culture - Final
NO GROWTH
CT C/A/P: Cholelithiasis with mild gallbladder distention and surrounding stranding concerning for acute cholecystitis. Recommend correlation with right upper quadrant ultrasound. There is mild wall thickening along the hepatic flexure, possibly
reactive mild colitis. Bibasilar airspace opacities which likely represent atelectasis.
RUQ U/S: Gallbladder sludge. Cannot exclude minimal gallbladder wall thickening. Negative sonographic Ramirez's sign. No findings to suggest biliary tract dilatation. Findings suggesting diffuse fatty liver. Pancreas, abdominal aorta and IVC
significantly obscured, most likely by overlying bowel gas.
HIDA: Patent common bile duct. Nonvisualization of the gallbladder suggesting cystic duct obstruction and possible acute cholecystitis.
Acute diabetic ketoacidosis:
-Due to insulin noncompliance due to abdominal pain due to acute cholecystitis
-RAYMOND on CKD3b due to volume contraction due to DKA and hypotension due to septic shock, POA
-Note, anion gap metabolic acidosis was due to combination of DKA, RAYMOND, and lactic acidosis
-stop IVFs as per discussion with Dr. Hall
-AG now closed
-was on insulin gtt, now transitioned to basal/bolus insulin
-SSI/accuchecks
-diabetes ACCOUNTING DIRECTOR following
Septic shock due to acute cholecystitis:
-imaging above
-cont Cefepime/Flagyl
-BCxs NGTD
-Acute nonischemic myocardial injury due to septic shock
-Was on Levophed, then Jhoan-Synephrine, now off pressors
-surgery following, ASA/Plavix were held, can restart today as per discussion with Dr. Manley
-s/p perc darrian on 05/14/24
Afib with RVR:
-converted to SR 05/13/24AM
-was on Amio gtt, then transitioned to PO Amio
-cont heparin gtt
-then converted back to afib with RVR on 05/14/24, cardizem gtt started, now off cardizem gtt and converted back to SR
-cont BB
Other problems:
HLD: cont statin
Essential HTN: holding home antihypertensives
PAD: cont statin/ASA/Plavix
R BKA
Renal calculi
Hyponatremia, resolved
FULL/Heparin gtt
Anticipated Discharge: > 48 hours
Subjective/Interval History
-
Date of Service: May 16, 2024
Objective Data
-
Labs:
Laboratory Results
05/16/24
04:07
WBC 10.9 H
Hgb 7.9 L
Hct 22.6 L
Plt Count 271
APTT 90.1 H
Sodium 137
Potassium 3.6
Chloride 110 H
Carbon Dioxide 22
BUN 74 H
Creatinine 2.0 H
Glucose 194 H
Calcium 7.4 L
Vital Signs:
Vital Signs
Temp Pulse Resp BP Pulse Ox
98 F 85 18 141/62 95
05/16/24 07:39 05/16/24 08:00 05/16/24 08:00 05/16/24 08:00 05/16/24 08:00
I&O
05/15/24 05/16/24 05/17/24
06:59 06:59 06:59
Intake Total 4222.7 / 4272.7 1300 / 1310
Output Total 1200 / 1200 2330 / 2330
Balance 3022.7 / 3072.7 -1030 / -1020
[2024-05-16] MEDS: KCL 20 MEQ PO (10:14)
[2024-05-16] MEDS: PLAVIX 75 MG PO (10:24)
--- NOTE | 2024-05-16 11:34 | W.PN.GS2 ---
Today's Communication / Plan
-
`
Assessment / Plan
-
Assessment: Patient is a 74 yo M p/w septic shock likely secondary to acute cholecystitis -managed with percutaneous cholecystostomy tube placement
Percutaneous cholecystostomy tube culture -no growth to date
Blood cultures on admission -final no growth
Plan: ADA diet as tolerated
Maintain percutaneous cholecystostomy tube to gravity drainage with daily saline flush
Okay to resume ASA/Plavix from surgical standpoint
Outpatient surgical follow-up with Dr. Mcfadden for subsequent percutaneous cholecystostomy tube management and future discussions regarding timing of interval cholecystectomy.
Signing off, please call if can be of further assistance during hospital care.
Subjective Data
-
Date of Service: May 16, 2024
Patient seen and examined.
Reports abdominal pain resolved. States he feels well from GI/abdominal standpoint
Tolerating dietary intake
Objective Data
-
Intake and Output
05/15/24 05/16/24 05/17/24
06:59 06:59 06:59
Intake Total 4222.7 / 4272.7 1300 / 1310 160 / 160
Output Total 1200 / 1200 2330 / 2330
Balance 3022.7 / 3072.7 -1030 / -1020 160 / 160
Intake:
Oral fluids 720 / 720
IV fluids (Total) 3912.7 / 3962.7 470 / 480 50 / 50
Lr 1,000 ml @ 40 mls/hr IV . 1200 / 1240 240 / 240
Q24H JENNIFER Rx#:[id number]
amiodarone 50.1 / 50.1
cardizem 140 / 140
flagyl 200 / 200
heparin 216 / 226 230 / 240 50 / 50
insulin 6.6 / 6.6
ivf 2100 / 2100
IV piggybacks 300 / 300 100 / 100 100 / 100
Amount instilled into Drain ( 10 / 10 10 / 10 10 / 10
Total)
Right Abdomen Biliary Placed in
IR
Output:
Drain Output (Total) 125 / 125 80 / 80
Right Abdomen Biliary Placed in 125 / 125 80 / 80
IR
Urine, Voided 1075 / 1075 2250 / 2250
Other:
Number of approximated MODERATE 1
amounts of urine
Vital Signs
Temp Pulse Resp BP Pulse Ox
98 F 84 17 132/64 96
05/16/24 07:39 05/16/24 10:00 05/16/24 10:00 05/16/24 10:00 05/16/24 10:00
Lab Results
05/16/24 04:07
05/16/24 04:07
Calcium 7.4 mg/dl (8.4-10.2) L 05/16/24 04:07
Phosphorus 2.8 mg/dl (2.5-4.5) 05/13/24 04:26
Magnesium 2.0 mg/dl (1.6-2.3) 05/15/24 04:26
Total Bilirubin 0.4 mg/dl (0.2-1.3) 05/13/24 04:26
Direct Bilirubin 0.3 mg/dl (0.0-0.4) 05/13/24 04:26
AST 42 U/L (17-59) 05/13/24 04:26
ALT 44 U/L (0-50) 05/13/24 04:26
Alkaline Phosphatase 118 U/L (38-126) 05/13/24 04:26
Total Protein 4.7 g/dl (6.3-8.2) L 05/13/24 04:26
Albumin 2.3 g/dl (3.5-5.0) L 05/13/24 04:26
Physical Exam
-
NAD AAOx3
ABD: Soft, nondistended, very minimal tenderness right upper quadrant.
IR percutaneous cholecystostomy drain in place with dark bilious contents
[2024-05-16 12:06] LABS: Glucose - Point of Care 287 mg/dl (70-99)
[2024-05-16] MEDS: NOVOLOG FLEXPEN-MODERATE RESISTANCE 5 UNITS SC (12:08)
[2024-05-16] MEDS: NOVOLOG FLEXPEN 5 UNITS SC (12:08)
--- NOTE | 2024-05-16 12:23 | W.PN.CARDCBS ---
Today's Communication / Plan
-
Remains in sinus rhythm. Continue amiodarone.
Remains on IV heparin. If no further procedures are scheduled would likely stop heparin and switch to aspirin and Eliquis.
Continue metoprolol.
Continue atorvastatin
Impression / Plan
-
.
Primary piped pocket machine operator: Dr. Jony Rojas
Primary care physician, Dr. Gene Banks
Impression:
DKA
Acute on chronic renal failure
Hypotension
Paroxysmal atrial fibrillation with RVR
Leukocytosis
Non-SC troponin elevation, 0.1 peak
Anemia with history of anemia
Hx CABG x 3 VALIENTE to LAD and sequential vein graft to OM and right PLB 2014
Diabetes mellitus type 2
Right bundle branch block
Hyperlipidemia
Peripheral arterial disease
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
History noncompliance
LVH
Echo July 2014: EF 55% with moderate LVH and no significant valvular disease.
Technically difficult study.
Normal left ventricular size and systolic function. Normal left ventricular
wall thickness. No regional wall motion abnormalities are seen. LV ejection
fraction is 50%.
Mild mitral regurgitation.
Mild tricuspid regurgitation.
Compared to previous echo from July 2014, there is now mild MR
Plan:
He remains in sinus rhythm today. Continue oral amiodarone 400 mg p.o. 3 times daily. Continue IV heparin.
Will eventually need to add Eliquis or Xarelto. s/p percutaneous tubes for cholecystitis. Hg at 7.9.
Cont metoprolol
Creatinine overall stable at 2.0.Nephrology following.
Echocardiogram May 13 2024: EF 50% with mild MR and mild TR
Troponin peaked at 0.1, medical therapy for now for nonischemic myocardial injury.
Continue DKA treatment as per primary service and camp counselor.
Leukocytosis, improving, workup and evaluation for infection as per primary service.
Cont ASA and PLavix.
He had been on dual antiplatelet therapy likely for recent BKA peripheral arterial disease. As he needs full anticoagulation would likely stop Plavix and use aspirin and Eliquis. Will need to figure out plan with percutaneous tube.
Continue abx.
Progress Note - Electric Utility Lineworker
Subjective
Date of Service: May 16, 2024
extubated and feels well. remains in sinus rhythm.
Objective
Labs:
05/16/24 04:07
05/16/24 04:07
Labs
Hgb 7.9 g/dL (13.0-18.0) L 05/16/24 04:07
Hct 22.6 % (39.0-52.0) L 05/16/24 04:07
Plt Count 271 10^3/uL (130-400) 05/16/24 04:07
PT 17.0 Sec (11.4-14.6) H 05/12/24 11:18
INR 1.35 05/12/24 11:18
APTT 90.1 Sec (23.4-35.0) H 05/16/24 04:07
Sodium 137 mmol/L (135-145) 05/16/24 04:07
Potassium 3.6 mmol/L (3.5-5.1) 05/16/24 04:07
BUN 74 mg/dl (9-20) H 05/16/24 04:07
Creatinine 2.0 mg/dL (0.7-1.3) H 05/16/24 04:07
Glucose 194 mg/dl (70-99) H 05/16/24 04:07
Vital Signs and I&O:
Vital Signs
Temp Pulse Resp BP Pulse Ox
98 F 84 17 132/64 96
05/16/24 11:55 05/16/24 10:00 05/16/24 10:00 05/16/24 10:00 05/16/24 10:00
Vital Signs
Temp Pulse Resp BP Pulse Ox
98 F 84 17 132/64 96
05/16/24 11:55 05/16/24 10:00 05/16/24 10:00 05/16/24 10:00 05/16/24 10:00
Intake & Output
05/14/24 05/15/24 05/16/24 05/17/24
06:59 06:59 06:59 06:59
Intake Total 4822.5 / 4822.5 4222.7 / 4272.7 1300 / 1310 160 / 160
Output Total 2100 / 2100 1200 / 1200 2330 / 2330
Balance 2722.5 / 2722.5 3022.7 / 3072.7 -1030 / -1020 160 / 160
Physical Exam
Physical Exam
GEN: No distress, awake, Ox3
HEENT: supple, anicteric, mmm
LUNGS: CTA, no wheezes/rales
CV: Reg, S1/S2, 1/6 syst LSB, no gallop
ABD: soft, BS+, NT/ND
EXT: R BKA
NEURO: Gross non-focal
SKIN: No rash
--- NOTE | 2024-05-16 14:57 | CM ---
CM following re: discharge planning.
Discussed in Rounds, reviewed t's chart, met with pt.
Per Rounds meeting, patient continues to do well, remains off pressors, heart rate improved, abdominal pain improved continue supportive care. .
Pt lives alone [place], 3 steps to enter, has no family, has supportive friend, friend Nisha Figueroa has POA. Pt reports he ambulates with a walker, has a wheelchair, went to [facility] in January 2024. Pt stated he supposed to receive his
prosthetic leg and he will need to go to [facility] for training.
[facility] director of rehabilitation following for a possible admission to [facility] for training of using prosthetic leg.
D/C plan: possible [facility] for prosthetic leg training.
CM will follow with discharge plan updates as hospitalization progresses
[2024-05-16 16:28] LABS: Glucose - Point of Care 332 mg/dl (70-99)
[2024-05-16] MEDS: NOVOLOG FLEXPEN-MODERATE RESISTANCE 7 UNITS SC (16:46)
--- NOTE | 2024-05-16 16:46 | PTCARENOTE ---
pt oob to chair with rn and pt for approx 4 hours. PT transferred to 4W= report given to rn. pt aware of transfer and sent with belongings.
[2024-05-16] MEDS: NOVOLOG FLEXPEN 8 UNITS SC (16:47)
[2024-05-16 22:08] LABS: Glucose - Point of Care 251 mg/dl (70-99)
[2024-05-16] MEDS: LANTUS 0.2 UNITS SC (22:55)
[2024-05-16] MEDS: FLOMAX 0.4 MG PO (22:56)
[2024-05-16] MEDS: DESYREL 25 MG PO (22:56)
[2024-05-17] MEDS: TYLENOL 1000 MG PO ×3 (00:56→15:59)
[2024-05-17] MEDS: FLAGYL 500 MG 100 IV ×3 (02:40→17:01)
[2024-05-17] MEDS: STERILE WATER FOR INJECTION 10 ML IV ×3 (02:40→17:01)
[2024-05-17] MEDS: MAXIPIME 1000 MG IV ×3 (02:40→17:01)
[2024-05-17 03:04] VITALS: BP 116/56
[2024-05-17 04:08] LABS: APTT 110.8 Sec (23.4-35.0)
[2024-05-17 04:14] LABS: Blood Urea Nitrogen 65 mg/dl (9-20); Calcium 7.5 mg/dl (8.4-10.2); Carbon Dioxide 23 mmol/L (22-30); Chloride 110 mmol/L (98-107); Estimated Creatinine Clearance 46 ml/min; Glucose 172 mg/dl (70-99); Potassium 3.6 mmol/L (3.5-5.1); Sodium 138 mmol/L (135-145); eGFR 42.04
[2024-05-17 06:00] VITALS: BMI 25.5
[2024-05-17 07:14] LABS: Glucose - Point of Care 206 mg/dl (70-99)
[2024-05-17 07:33] VITALS: BP 129/62
[2024-05-17] MEDS: NSS (PRESERVATIVE FREE) 10 ML IV (07:50)
[2024-05-17] MEDS: PROTONIX IV 40 MG IV (07:50)
[2024-05-17] MEDS: LIPITOR 40 MG PO (07:51)
[2024-05-17] MEDS: PLAVIX 75 MG PO (07:51)
[2024-05-17] MEDS: PACERONE 400 MG PO ×2 (07:51→16:00)
[2024-05-17] MEDS: TOPROL XL 25 MG PO (07:51)
[2024-05-17] MEDS: NOVOLOG FLEXPEN 8 UNITS SC (07:55)
[2024-05-17] MEDS: NOVOLOG FLEXPEN-MODERATE RESISTANCE 3 UNITS SC (07:56)
--- NOTE | 2024-05-17 08:41 | PN.DE.MGMTRT ---
Insulin Management
- -
05/17/2024: Diabetes Management Follow up
74 year old male who p/w right-sided rib pain. When EMS arrived his blood pressure was low and blood glucose was 477.
PMH: ASCVD, CAD s/p CABG x 3, HTN, HLD, CKD IIIb, REGGIE, Anemia of CKD, PAD s/p right BKA, hypercholesterolemia and DM type II.
Patient known to diabetes team from multiple admissions. States he was not eating for 5 days [employer] due to upper abdominal discomfort and was not taking his short acting insulin but was taking his Lantus. Prior to admission was taking Lantus 17 units @
hs and Humalog 7 units with meals. Last A1C was 8.8% in December 2023, current A1C 7.7%. Cr 2.7, eGFR 24.13.
Pt awake, alert, resting in bed, offers no c/o, he is incontinent of feces, able to discuss diabetes mgt. Diet was advanced to 1800 johnny yesterday.
4/2 Glucose range 183 to 262, after clear liquids started. 4/3 Fasting glucose 215, HS Lantus was increased to 20 units.
4/4 FBG 172 (V), 206 POC, Will increase Lantus to 22 units @ HS. Cr improving 2.0-->1.7, eGFR 42.04 today.
4/3 premeal range 215 to 332, requiring 3-7 units of corrective insulin with melas
Will increase AC NovoLog to 10 units. Cont moderate corrective.
Discussed with nurse. Will cont to follow.
Diabetes History
- -
Type of Diabetes: 2 requiring insulin
Pre-Admission Diabetes Regimen
05/17/24
03:34
Creatinine 1.7 H
Lab Results
Hemoglobin A1c 7.7 % (4.0-5.6) H 05/13/24 04:26
Insulin Pump Settings
IP Diabetes Regimen
05/16/24 05/16/24 05/16/24
12:05 16:26 22:06
Glucose
POC Glucose 287 H 332 H 251 H
05/17/24 05/17/24
03:34 07:12
Glucose 172 H
POC Glucose 206 H
Meal type: Lunch
Amount consumed: 100%
Patient Education
--- NOTE | 2024-05-17 11:05 | W.PN.HOSP.TC ---
Today's Communication/Plan
-
see bold
Assessment / Plan
Assessment / Plan
Gen: NAD, AAOx3.
Eyes: EOMI, PERRLA, no scleral icterus.
Neck: supple.
CV: continues to remain RRR, +S1/S2, no m/r/g.
Resp: continues to remain CTAB anteriorly, no rales, wheezes, or rhonchi.
Abd: remains +BS, soft, NT, ND
Skin: No rashes.
Neuro: CN 2-12 intact, non-focal.
Psych: Normal mood and affect.
05/12/24 11:51 Blood/Venous Blood Culture - Final
No Growth - Final Report
05/12/24 11:51 Blood/Venous Blood Culture - Final
No Growth - Final Report
05/14/24 06:00 Bile Body Fluid Culture - Final
No Growth After 72 Hours
05/14/24 06:00 Bile Gram Stain - Final
05/12/24 13:02 Urine Urine Culture - Final
NO GROWTH
CT C/A/P: Cholelithiasis with mild gallbladder distention and surrounding stranding concerning for acute cholecystitis. Recommend correlation with right upper quadrant ultrasound. There is mild wall thickening along the hepatic flexure, possibly
reactive mild colitis. Bibasilar airspace opacities which likely represent atelectasis.
RUQ U/S: Gallbladder sludge. Cannot exclude minimal gallbladder wall thickening. Negative sonographic Ramirez's sign. No findings to suggest biliary tract dilatation. Findings suggesting diffuse fatty liver. Pancreas, abdominal aorta and IVC
significantly obscured, most likely by overlying bowel gas.
HIDA: Patent common bile duct. Nonvisualization of the gallbladder suggesting cystic duct obstruction and possible acute cholecystitis.
Acute diabetic ketoacidosis:
-Due to insulin noncompliance due to abdominal pain due to acute cholecystitis
-RAYMOND on CKD3b due to volume contraction due to DKA and hypotension due to septic shock, POA. Cr improving.
-Note, anion gap metabolic acidosis was due to combination of DKA, RAYMOND, and lactic acidosis
-s/p IVFs
-AG now closed
-was on insulin gtt, now transitioned to basal/bolus insulin
-SSI/accuchecks
-diabetes WORKFORCE CONSULTANT following
Septic shock due to acute cholecystitis:
-imaging above
-cont Cefepime/Flagyl
-BCxs NGTD
-Acute nonischemic myocardial injury due to septic shock
-Was on Levophed, then Jhoan-Synephrine, now off pressors
-s/p perc adrrian on 05/14/24
-surgery following
Afib with RVR:
-converted to SR 05/13/24AM
-was on Amio gtt, then transitioned to PO Amio
-was on heparin gtt, transition to Eliquis today
-then converted back to afib with RVR on 05/14/24, cardizem gtt started, now off cardizem gtt and converted back to SR
-cont BB
Other problems:
HLD: cont statin
Essential HTN: cont BB
PAD: cont statin/ASA
R BKA
Renal calculi
Hyponatremia, resolved
Discussed with cardiology.
FULL/Eliquis
Anticipated Discharge: 24 - 48 hours
Subjective/Interval History
-
Date of Service: May 17, 2024
Patient complains of insomnia. Denies abdominal pain, chest pain, shortness of breath.
Objective Data
-
Labs:
Laboratory Results
05/17/24
03:34
APTT 110.8 H
Sodium 138
Potassium 3.6
Chloride 110 H
Carbon Dioxide 23
BUN 65 H
Creatinine 1.7 H
Glucose 172 H
Calcium 7.5 L
Vital Signs:
Vital Signs
Temp Pulse Resp BP Pulse Ox
98.5 F 82 17 129/62 96
05/17/24 07:33 05/17/24 07:33 05/17/24 07:33 05/17/24 07:33 05/17/24 07:33
I&O
05/16/24 05/17/24 05/18/24
06:59 06:59 06:59
Intake Total 1300 / 1310 1340 / 1340
Output Total 2330 / 2330 1210 / 1210
Balance -1030 / -1020 130 / 130
[2024-05-17 11:16] VITALS: BP 126/64
[2024-05-17 11:21] LABS: Glucose - Point of Care 305 mg/dl (70-99)
[2024-05-17] MEDS: ELIQUIS 5 MG PO ×2 (11:40→22:09)
[2024-05-17] MEDS: LOW STRENGTH ASPIRIN 81 MG PO (11:40)
[2024-05-17] MEDS: NOVOLOG FLEXPEN 10 UNITS SC ×2 (11:41→17:00)
[2024-05-17] MEDS: NOVOLOG FLEXPEN-MODERATE RESISTANCE 7 UNITS SC (11:41)
--- NOTE | 2024-05-17 11:47 | W.PN.NEPH.PH ---
Today's Communication / Plan
-
BMP in the morning
Assessment/Plan
-
IMP:
DKA
RAYMOND with CKD stage 3b baseline cr 1.4-1.7
Hypotension/?septic shock
suspected cholecystitis on CT
AFib with RVR
Elevated TPNI : NIMI
BPH
H/o U retention
Hypoantremia
Hypokalemia
hypocalcemia
Hypoalbuminemia
HLD
CAD s/p CABG
PAD Rt BKA
Renal calculi
Anemia of chronic disease
DM type 2 with circulatory complications
Non compliance
Plan:
A/w abd pain, CT concern of cholecystitis and noted hypotension on pressors and DKA
RAYMOND-highly suspect prerenal, cr improving from peak at 4.2 to 2.0 >1.7
however seem to have high PVR-monitor, low threshold for bosch , no hydro on CT
UA mild microhematuria and 2+alb-check U PCR 700mg/gm of cr: Likely related to diabetic nephropathy
met acidosis stable
avoid nephrotoxins
Hemodynamically more stable
Status post IR cholecystostomy
Chest x-ray from 4-25 without evidence of congestive heart failure
Diet advancing no need for further IV fluids at this
Renal function at baseline currently 1.5-1.7
-
-
Date of Service: May 17, 2024
CC / HPI / ROS
-
Chief Complaint:
RAYMOND
History of Present Illness:
Creatinine down to 2
Metabolic acidosis persists but improved
Hemodynamically stable
Review of Systems:
no cp or sob
abd pain no change
Nonoliguric but weights up
Labs
-
Labs:
WBC 10.9 10^3/uL (4.8-10.8) H 04/03/25 04:07
RBC 2.65 10^6/uL (4.70-6.10) L 05/16/24 04:07
Hgb 7.9 g/dL (13.0-18.0) L 05/16/24 04:07
Hct 22.6 % (39.0-52.0) L 05/16/24 04:07
Plt Count 271 10^3/uL (130-400) 05/16/24 04:07
Sodium 138 mmol/L (135-145) 05/17/24 03:34
Potassium 3.6 mmol/L (3.5-5.1) 05/17/24 03:34
Chloride 110 mmol/L (98-107) H 05/17/24 03:34
Carbon Dioxide 23 mmol/L (22-30) 05/17/24 03:34
BUN 65 mg/dl (9-20) H 05/17/24 03:34
Creatinine 1.7 mg/dL (0.7-1.3) H 05/17/24 03:34
eGFR 42.04 05/17/24 03:34
Glucose 172 mg/dl (70-99) H 05/17/24 03:34
Calcium 7.5 mg/dl (8.4-10.2) L 05/17/24 03:34
Phosphorus 2.8 mg/dl (2.5-4.5) 05/13/24 04:26
Albumin 2.3 g/dl (3.5-5.0) L 05/13/24 04:26
Physical Exam
-
Vital Signs:
Vital Signs
Temp Pulse Resp BP Pulse Ox
98.5 F 84 18 126/64 96
05/17/24 11:16 05/17/24 11:16 05/17/24 11:16 05/17/24 11:16 05/17/24 11:16
Cardiovascular:: Irregular rate and rhythm
Respiratory:: Bilateral: CTA
Lung Excursion:: Normal
Abdomen:: Nontender and Soft
Bowel Sounds:: Normal
Extremity Edema:: None: Left:
Bosch Catheter: No
Other Findings::
right BKA stump
Choley ube
--- NOTE | 2024-05-17 15:21 | CM ---
assistant housekeeping manager reviewed patient's chart and met with patient and spoke with admissions at [facility] plan is for patient to return to home, field nurse case manager reached out to [facility] and they confirmed plan is to home with visiting nurses when stable, and patient
will be brought into [facility] from [facility] for prosthetic teaching and care.
Plan; Home with [facility] when stable, [facility] liaison contacted.
[2024-05-17 15:26] VITALS: BP 138/64
--- NOTE | 2024-05-17 16:08 | W.PN.CARDCBS ---
Addendum entered and electronically signed by Seven Moran MD 05/17/24 16:45:
I saw and examined the patient.
The BLOW PIT HELPER or PA's note was reviewed and I agree with the note.
Comment: General: Well developed, well nourished in NAD.
Neck: Supple, no JVD, HJR, carotids +2 B/L, no bruits bilaterally.
Heart: Non displaced PMI, RRR, no murmurs, No S3, S4, no rubs.
Lungs: Scattered rhonchi
Extremities: No clubbing, cyanosis or edema bilaterally.
Neuro: Grossly nonfocal, awake, alert and oriented x3.
Remains in sinus rhythm. Decrease amiodarone to 200 mg p.o. twice daily continue Toprol. Check ECG in AM. Stop Plavix and start Eliquis 5 mg p.o. twice daily and aspirin 81 mg daily. Discussed with primary service
Original Note:
Today's Communication / Plan
-
Stop Plavix
Start Eliquis 5 mg twice a day along with aspirin 81 mg
Decrease amiodarone to 200 mg twice a day and continue Toprol
Check EKG in a.m.
Impression / Plan
-
.
Primary stone engraver: Dr. Jony Rojas
Primary care physician, Dr. Gene Banks
Impression:
Presented 05/12/2024 with abdominal pain and poor appetite
Acute cholecystitis
DKA
Acute on chronic renal failure
Hypotension
Paroxysmal atrial fibrillation with RVR
Leukocytosis
Non-NJ troponin elevation, 0.1 peak
Anemia with history of anemia
Hx CABG x 3 VALIENTE to LAD and sequential vein graft to OM and right PLB 2014
Diabetes mellitus type 2
Right bundle branch block
Hyperlipidemia
Peripheral arterial disease
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
History noncompliance
LVH
Echo July 2014: EF 55% with moderate LVH and no significant valvular disease.
Echo 05/13/2024 (TDS): EF 50%. Normal left ventricular size and systolic function. Normal left ventricular wall thickness. No regional wall motion abnormalities are seen. Mild mitral regurgitation. Mild tricuspid regurgitation. Compared to
previous echo from July 2014, there is now mild MR
Plan:
Presented 05/12/2024 with abdominal pain and poor appetite found to have acute cholecystitis as well as DKA, RAYMOND on CKD, paroxysmal atrial fibrillation with rapid ventricular response and acute on chronic anemia.
Paroxysmal atrial fibrillation
patient spontaneously converted to sinus rhythm 05/13/2024. He remains in sinus rhythm today.
Started on amiodarone 400 mg 3 times daily 05/14/2024 patient has received 4400 mg load as of 05/17/2024 in afternoon. Will reduce to 200 mg twice a day starting evening 05/17/2024
Check EKG in a.m.
Initially placed on IV heparin however transition to Eliquis 5 mg twice daily 05/17/2024.
Given recent BKA and peripheral arterial disease continue aspirin with Eliquis. Discontinue Plavix
Abnormal troponin, peaked at 0.106 on admission then trended downward. Suspect nonischemic myocardial injury secondary to acute cholecystitis, A-fib with rapid ventricular response, RAYMOND and DKA.
Echocardiogram May 13 2024: EF 50% with mild MR and mild TR
Continue metoprolol and atorvastatin
Lipids 05/13/2024 TC less than 50, HDL 13, LDL 16.08928, triglycerides 102
Can consider outpatient ischemic evaluation once patient stable
s/p percutaneous tubes for cholecystitis 1 05/14/2024. Hgb at 7.9. Continue cefepime and Flagyl per primary service and surgery
Acute anemia, initial hemoglobin 11.7, now 7.9 (05/16/2024)
RAYMOND on CKD, (baseline creatinine 1.5-1.7). Peak creatinine 4.2 on 05/12/2024. Continues to improve currently 1.7. Nephrology following
Continue DKA treatment as per primary service and principal law clerk.
Leukocytosis, improving, workup and evaluation for infection as per primary service. Continue antibiotics per primary service
HPI 05/12/2024:
History of Present Illness:
Flaquito is a 74-year-old male with past medical history significant for CABG VALIENTE to LAD and sequential vein graft to OM and right PLB 2014 diabetes mellitus type 2, CKD, anemia, right bundle branch block, hyperlipidemia, peripheral arterial disease
with recent right BKA January 2024, significant noncompliance who presents with several days of abdominal pain. He was not eating and not taking his insulin regularly. He presented in renal failure and DKA. He was hypotensive in the emergency
room and also developed atrial fibrillation with rapid ventricular response which is a new diagnosis for him. He denies chest pain or shortness of breath. Cardiology was consulted for further evaluation and treatment
He was last seen by Dr. Jony Rojas March 2021 and lost to follow-up.
Progress Note - Fraud Representative
Subjective
Date of Service: May 17, 2024
Objective
Labs:
05/16/24 04:07
05/17/24 03:34
Labs
Hgb 7.9 g/dL (13.0-18.0) L 05/16/24 04:07
Hct 22.6 % (39.0-52.0) L 05/16/24 04:07
Plt Count 271 10^3/uL (130-400) 05/16/24 04:07
PT 17.0 Sec (11.4-14.6) H 05/12/24 11:18
INR 1.35 05/12/24 11:18
APTT 110.8 Sec (23.4-35.0) H 05/17/24 03:34
Sodium 138 mmol/L (135-145) 05/17/24 03:34
Potassium 3.6 mmol/L (3.5-5.1) 05/17/24 03:34
BUN 65 mg/dl (9-20) H 05/17/24 03:34
Creatinine 1.7 mg/dL (0.7-1.3) H 05/17/24 03:34
Glucose 172 mg/dl (70-99) H 05/17/24 03:34
Vital Signs and I&O:
Vital Signs
Temp Pulse Resp BP Pulse Ox
98.6 F 86 18 138/64 96
05/17/24 15:26 05/17/24 15:26 05/17/24 15:26 05/17/24 15:26 05/17/24 15:26
Vital Signs
Temp Pulse Resp BP Pulse Ox
98.6 F 86 18 138/64 96
05/17/24 15:26 05/17/24 15:26 05/17/24 15:26 05/17/24 15:26 05/17/24 15:26
Intake & Output
05/15/24 05/16/24 05/17/24 05/18/24
06:59 06:59 06:59 06:59
Intake Total 4222.7 / 4272.7 1300 / 1310 1340 / 1340
Output Total 1200 / 1200 2330 / 2330 1210 / 1210
Balance 3022.7 / 3072.7 -1030 / -1020 130 / 130
[2024-05-17 16:10] LABS: Glucose - Point of Care 261 mg/dl (70-99)
--- NOTE | 2024-05-17 16:22 | VNURNOTE ---
Home health liaison met with patient to discuss [facility] services, visit scheduling/frequency, homebound status and pet policy. Patient agreeable to [facility] services and understands home visits will be 1-2 times a week to assess and teach medical
management. Patient aware a visiting nurse will contact him for start of care within 1-2 days after discharge from . [facility] Referral completed in care port
[2024-05-17] MEDS: NOVOLOG FLEXPEN-MODERATE RESISTANCE 5 UNITS SC (16:59)
[2024-05-17 19:51] VITALS: BP 129/58
[2024-05-17] MEDS: PACERONE 200 MG PO (19:56)
[2024-05-17 22:00] LABS: Glucose - Point of Care 206 mg/dl (70-99)
[2024-05-17] MEDS: DESYREL 25 MG PO (22:09)
[2024-05-17] MEDS: MELATONIN 5 MG PO (22:09)
[2024-05-17] MEDS: LANTUS 0.22 UNITS SC (22:09)
[2024-05-17] MEDS: FLOMAX 0.4 MG PO (22:09)
[2024-05-17 23:30] VITALS: BP 119/68
[2024-05-18] MEDS: TYLENOL 1000 MG PO ×4 (00:33→23:03)
[2024-05-18] MEDS: FLAGYL 500 MG 100 IV ×3 (02:25→16:40)
[2024-05-18] MEDS: STERILE WATER FOR INJECTION 10 ML IV ×3 (02:25→16:43)
[2024-05-18] MEDS: MAXIPIME 1000 MG IV ×3 (02:25→16:43)
[2024-05-18 03:02] VITALS: BP 130/74
[2024-05-18 06:00] VITALS: BMI 25.5
[2024-05-18 08:15] VITALS: BP 144/63
[2024-05-18 08:15] LABS: Glucose - Point of Care 160 mg/dl (70-99)
[2024-05-18 08:15] LABS: Hematocrit 22.6 % (39.0-52.0); Hemoglobin 7.8 g/dL (13.0-18.0); Mean Corp Hgb Conc. 34.5 g/dL (33.0-37.0); Mean Corpuscular Hgb 29.5 pg (27.0-31.0); Mean Corpuscular Volume 85.6 fL (80.0-94.0); Mean Platelet Volume 9.3 fL (7.4-10.4); Platelet Count 308 10^3/uL (130-400); Red Blood Cell Count 2.64 10^6/uL (4.70-6.10); Red Cell Dist. Width 15.4 % (11.5-14.5); White Blood Cell Count 8.8 10^3/uL (4.8-10.8)
[2024-05-18] MEDS: NOVOLOG FLEXPEN 10 UNITS SC ×3 (08:37→16:40)
[2024-05-18] MEDS: NOVOLOG FLEXPEN-MODERATE RESISTANCE 1 UNITS SC (08:37)
[2024-05-18] MEDS: TOPROL XL 25 MG PO (08:38)
[2024-05-18] MEDS: LOW STRENGTH ASPIRIN 81 MG PO (08:39)
[2024-05-18] MEDS: ELIQUIS 5 MG PO ×2 (08:39→20:21)
[2024-05-18] MEDS: PROTONIX IV 40 MG IV (08:40)
[2024-05-18] MEDS: LIPITOR 40 MG PO (08:40)
[2024-05-18] MEDS: PACERONE 200 MG PO ×2 (08:40→20:21)
[2024-05-18] MEDS: NSS (PRESERVATIVE FREE) 10 ML IV (08:41)
--- NOTE | 2024-05-18 11:07 | W.PN.HOSP.TC ---
Today's Communication/Plan
-
cont ab through the weekend
Assessment / Plan
Assessment / Plan
Gen: NAD, AAOx3.
Eyes: EOMI, PERRLA, no scleral icterus.
Neck: supple.
CV: RRR, +S1/S2, no m/r/g.
Resp: CTAB anteriorly, no rales, wheezes, or rhonchi.
Abd: continues to remain +BS, soft, NT, ND
Skin: No rashes.
Neuro: CN 2-12 intact, non-focal.
Psych: Normal mood and affect.
05/12/24 11:51 Blood/Venous Blood Culture - Final
No Growth - Final Report
05/12/24 11:51 Blood/Venous Blood Culture - Final
No Growth - Final Report
05/14/24 06:00 Bile Body Fluid Culture - Final
No Growth After 72 Hours
05/14/24 06:00 Bile Gram Stain - Final
05/12/24 13:02 Urine Urine Culture - Final
NO GROWTH
CT C/A/P: Cholelithiasis with mild gallbladder distention and surrounding stranding concerning for acute cholecystitis. Recommend correlation with right upper quadrant ultrasound. There is mild wall thickening along the hepatic flexure, possibly
reactive mild colitis. Bibasilar airspace opacities which likely represent atelectasis.
RUQ U/S: Gallbladder sludge. Cannot exclude minimal gallbladder wall thickening. Negative sonographic Ramirez's sign. No findings to suggest biliary tract dilatation. Findings suggesting diffuse fatty liver. Pancreas, abdominal aorta and IVC
significantly obscured, most likely by overlying bowel gas.
HIDA: Patent common bile duct. Nonvisualization of the gallbladder suggesting cystic duct obstruction and possible acute cholecystitis.
Acute diabetic ketoacidosis:
-Due to insulin noncompliance due to abdominal pain due to acute cholecystitis
-RAYMOND on CKD3b due to volume contraction due to DKA and hypotension due to septic shock, POA. Cr improving.
-Note, anion gap metabolic acidosis was due to combination of DKA, RAYMOND, and lactic acidosis
-s/p IVFs
-AG now closed
-was on insulin gtt, now transitioned to basal/bolus insulin
-SSI/accuchecks
-diabetes GLASS GLAZIER following
Septic shock due to acute cholecystitis:
-imaging above
-cont Cefepime/Flagyl
-BCxs NGTD
-Acute nonischemic myocardial injury due to septic shock
-Was on Levophed, then Jhoan-Synephrine, now off pressors
-s/p perc darrian on 05/14/24
-surgery following
Afib with RVR:
-converted to SR 05/13/24AM
-was on Amio gtt, then transitioned to PO Amio
-was on heparin gtt, now transitioned to Eliquis
-then converted back to afib with RVR on 05/14/24, cardizem gtt started, now off cardizem gtt and converted back to SR
-cont BB
Other problems:
HLD: cont statin
Essential HTN: cont BB
PAD: cont statin/ASA
R BKA
Renal calculi
Hyponatremia, resolved
FULL/Eliquis
Anticipated Discharge: 24 - 48 hours
Subjective/Interval History
-
Date of Service: May 18, 2024
Objective Data
-
Labs:
Laboratory Results
05/18/24
07:50
WBC 8.8
Hgb 7.8 L
Hct 22.6 L
Plt Count 308
Vital Signs:
Vital Signs
Temp Pulse Resp BP Pulse Ox
98.1 F 77 18 144/63 96
05/18/24 08:15 05/18/24 08:15 05/18/24 08:15 05/18/24 08:15 05/18/24 08:15
I&O
05/17/24 05/18/24 05/19/24
06:59 06:59 06:59
Intake Total 1340 / 1340 850 / 850
Output Total 1210 / 1210 2295 / 2295
Balance 130 / 130 -1445 / -1445
[2024-05-18 11:25] LABS: Blood Urea Nitrogen 53 mg/dl (9-20); Calcium 7.7 mg/dl (8.4-10.2); Carbon Dioxide 25 mmol/L (22-30); Chloride 111 mmol/L (98-107); Estimated Creatinine Clearance 46 ml/min; Glucose 141 mg/dl (70-99); Potassium 3.8 mmol/L (3.5-5.1); Sodium 139 mmol/L (135-145); eGFR 42.04
--- NOTE | 2024-05-18 11:27 | W.PN.CARDCBS ---
Today's Communication / Plan
-
Remains in sinus rhythm
Sign off
Discussed with nursing
Impression / Plan
-
.
Primary long filler cigar roller machine: Dr. Jony Rojas
Primary care physician, Dr. Gene Banks
Impression:
Presented 05/12/2024 with abdominal pain and poor appetite
Acute cholecystitis status post percutaneous tube
DKA
Acute on chronic renal failure
Hypotension
Paroxysmal atrial fibrillation with RVR
Nonischemic myocardial injury, 0.1 peak troponin
Anemia with history of anemia
Hx CABG x 3 VALIENTE to LAD and sequential vein graft to OM and right PLB 2014
Diabetes mellitus type 2
Right bundle branch block
Hyperlipidemia
Peripheral arterial disease
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
History noncompliance
LVH
Echo July 2014: EF 55% with moderate LVH and no significant valvular disease.
Echo 05/13/2024 (TDS): EF 50%. Normal left ventricular size and systolic function. Normal left ventricular wall thickness. No regional wall motion abnormalities are seen. Mild mitral regurgitation. Mild tricuspid regurgitation. Compared to
previous echo from July 2014, there is now mild MR
Plan:
Remains in sinus rhythm. Amiodarone was decreased to 200 mg p.o. twice daily on 05/17/2024. ECG okay on 05/18/24.
Continue Eliquis
Given recent BKA and peripheral arterial disease continue aspirin
Remains anemic but stable
Continue antibiotics
Stable cardiology status
Will sign off, call with questions
HPI 05/12/2024:
History of Present Illness:
Flaquito is a 74-year-old male with past medical history significant for CABG VALIENTE to LAD and sequential vein graft to OM and right PLB 2014 diabetes mellitus type 2, CKD, anemia, right bundle branch block, hyperlipidemia, peripheral arterial disease
with recent right BKA January 2024, significant noncompliance who presents with several days of abdominal pain. He was not eating and not taking his insulin regularly. He presented in renal failure and DKA. He was hypotensive in the emergency
room and also developed atrial fibrillation with rapid ventricular response which is a new diagnosis for him. He denies chest pain or shortness of breath. Cardiology was consulted for further evaluation and treatment
He was last seen by Dr. Jony Rojas March 2021 and lost to follow-up.
Progress Note - School Lunch Manager
Subjective
Date of Service: May 18, 2024
No chest pain or shortness of breath
Objective
Labs:
05/18/24 07:50
05/18/24 07:51
Labs
Hgb 7.8 g/dL (13.0-18.0) L 05/18/24 07:50
Hct 22.6 % (39.0-52.0) L 05/18/24 07:50
Plt Count 308 10^3/uL (130-400) 05/18/24 07:50
PT 17.0 Sec (11.4-14.6) H 05/12/24 11:18
INR 1.35 05/12/24 11:18
APTT 110.8 Sec (23.4-35.0) H 05/17/24 03:34
Sodium 139 mmol/L (135-145) 05/18/24 07:51
Potassium 3.8 mmol/L (3.5-5.1) 05/18/24 07:51
BUN 53 mg/dl (9-20) H 05/18/24 07:51
Creatinine 1.7 mg/dL (0.7-1.3) H 05/18/24 07:51
Glucose 141 mg/dl (70-99) H 05/18/24 07:51
Vital Signs and I&O:
Vital Signs
Temp Pulse Resp BP Pulse Ox
98.1 F 77 18 144/63 96
05/18/24 08:15 05/18/24 08:15 05/18/24 08:15 05/18/24 08:15 05/18/24 08:15
Vital Signs
Temp Pulse Resp BP Pulse Ox
98.1 F 77 18 144/63 96
05/18/24 08:15 05/18/24 08:15 05/18/24 08:15 05/18/24 08:15 05/18/24 08:15
Intake & Output
05/16/24 05/17/24 05/18/24 05/19/24
06:59 06:59 06:59 06:59
Intake Total 1300 / 1310 1340 / 1340 850 / 850
Output Total 2330 / 2330 1210 / 1210 2295 / 2295
Balance -1030 / -1020 130 / 130 -1445 / -1445
Physical Exam
Physical Exam
General: Well developed, well nourished in NAD.
Neck: Supple, no JVD, HJR, carotids +2 B/L, no bruits bilaterally.
Heart: Non displaced PMI, RRR, no murmurs, No S3, S4, no rubs.
Lungs: Scattered rhonchi
Extremities: No clubbing, cyanosis or edema bilaterally.
Neuro: Grossly nonfocal, awake, alert and oriented x3.
[2024-05-18 11:45] VITALS: BP 143/63
[2024-05-18 11:56] LABS: Glucose - Point of Care 239 mg/dl (70-99)
[2024-05-18] MEDS: NOVOLOG FLEXPEN-MODERATE RESISTANCE 3 UNITS SC ×2 (12:09→16:41)
--- NOTE | 2024-05-18 14:20 | W.PN.NEPH.PH ---
Today's Communication / Plan
-
BMP
Assessment/Plan
-
IMP:
DKA
RAYMOND with CKD stage 3b baseline cr 1.4-1.7
Hypotension/?septic shock
suspected cholecystitis on CT
AFib with RVR
Elevated TPNI : NIMI
BPH
H/o U retention
Hypoantremia
Hypokalemia
hypocalcemia
Hypoalbuminemia
HLD
CAD s/p CABG
PAD Rt BKA
Renal calculi
Anemia of chronic disease
DM type 2 with circulatory complications
Non compliance
Plan:
A/w abd pain, CT concern of cholecystitis and noted hypotension on pressors and DKA
RAYMOND-highly suspect prerenal, cr improving from peak at 4.2 to 2.0 >1.7
however seem to have high PVR-monitor, low threshold for bosch , no hydro on CT
UA mild microhematuria and 2+alb-check U PCR 700mg/gm of cr: Likely related to diabetic nephropathy
met acidosis stable
avoid nephrotoxins
Hemodynamically more stable
Status post IR cholecystostomy
Chest x-ray from - without evidence of congestive heart failure
Diet advancing no need for further IV fluids at this
Renal function at baseline currently 1.5-1.7
-
-
Date of Service: May 18, 2024
CC / HPI / ROS
-
Chief Complaint:
RAYMOND
History of Present Illness:
Creatinine down to 2
Metabolic acidosis persists but improved
Hemodynamically stable
Review of Systems:
no cp or sob
abd pain no change
Nonoliguric but weights up
Labs
-
Labs:
WBC 8.8 10^3/uL (4.8-10.8) 05/18/24 07:50
RBC 2.64 10^6/uL (4.70-6.10) L 05/18/24 07:50
Hgb 7.8 g/dL (13.0-18.0) L 05/18/24 07:50
Hct 22.6 % (39.0-52.0) L 05/18/24 07:50
Plt Count 308 10^3/uL (130-400) 05/18/24 07:50
Sodium 139 mmol/L (135-145) 05/18/24 07:51
Potassium 3.8 mmol/L (3.5-5.1) 05/18/24 07:51
Chloride 111 mmol/L (98-107) H 05/18/24 07:51
Carbon Dioxide 25 mmol/L (22-30) 05/18/24 07:51
BUN 53 mg/dl (9-20) H 05/18/24 07:51
Creatinine 1.7 mg/dL (0.7-1.3) H 05/18/24 07:51
eGFR 42.04 05/18/24 07:51
Glucose 141 mg/dl (70-99) H 05/18/24 07:51
Calcium 7.7 mg/dl (8.4-10.2) L 05/18/24 07:51
Phosphorus 2.8 mg/dl (2.5-4.5) 05/13/24 04:26
Albumin 2.3 g/dl (3.5-5.0) L 05/13/24 04:26
Physical Exam
-
Vital Signs:
Vital Signs
Temp Pulse Resp BP Pulse Ox
97.7 F 76 18 143/63 95
05/18/24 11:45 05/18/24 11:45 05/18/24 11:45 05/18/24 11:45 05/18/24 11:45
Cardiovascular:: Irregular rate and rhythm
Respiratory:: Bilateral: CTA
Lung Excursion:: Normal
Abdomen:: Nontender and Soft
Bowel Sounds:: Normal
Extremity Edema:: None: Left:
Bosch Catheter: No
Other Findings::
right BKA stump
Choley ube
[2024-05-18 15:00] VITALS: BP 137/60
[2024-05-18 16:28] LABS: Glucose - Point of Care 249 mg/dl (70-99)
[2024-05-18 19:41] VITALS: BP 144/67
[2024-05-18 21:54] LABS: Glucose - Point of Care 227 mg/dl (70-99)
[2024-05-18] MEDS: LANTUS 0.22 UNITS SC (22:26)
[2024-05-18] MEDS: FLOMAX 0.4 MG PO (22:26)
[2024-05-18] MEDS: DESYREL 25 MG PO (22:26)
[2024-05-18 23:25] VITALS: BP 125/70
[2024-05-19] MEDS: MAXIPIME 1000 MG IV ×3 (02:36→17:33)
[2024-05-19] MEDS: STERILE WATER FOR INJECTION 10 ML IV ×3 (02:37→17:34)
[2024-05-19] MEDS: FLAGYL 500 MG 100 IV ×3 (02:37→17:33)
[2024-05-19 03:24] VITALS: BP 135/65
[2024-05-19 05:50] VITALS: BMI 25.1
[2024-05-19 07:29] LABS: Blood Urea Nitrogen 40 mg/dl (9-20); Calcium 7.9 mg/dl (8.4-10.2); Carbon Dioxide 26 mmol/L (22-30); Chloride 109 mmol/L (98-107); Estimated Creatinine Clearance 49 ml/min; Glucose 138 mg/dl (70-99); Sodium 138 mmol/L (135-145); eGFR 45.21
[2024-05-19 08:03] VITALS: BP 144/72
[2024-05-19] MEDS: PROTONIX IV 40 MG IV (08:20)
[2024-05-19] MEDS: NSS (PRESERVATIVE FREE) 10 ML IV (08:21)
[2024-05-19] MEDS: TYLENOL 1000 MG PO ×3 (08:21→23:14)
[2024-05-19] MEDS: PACERONE 200 MG PO ×2 (08:21→20:28)
[2024-05-19] MEDS: LIPITOR 40 MG PO (08:21)
[2024-05-19] MEDS: LOW STRENGTH ASPIRIN 81 MG PO (08:22)
[2024-05-19] MEDS: ELIQUIS 5 MG PO ×2 (08:22→20:28)
[2024-05-19] MEDS: NOVOLOG FLEXPEN-MODERATE RESISTANCE 3 UNITS SC ×3 (08:23→17:32)
[2024-05-19] MEDS: NOVOLOG FLEXPEN 10 UNITS SC ×2 (08:23→12:17)
[2024-05-19] MEDS: TOPROL XL 25 MG PO (08:25)
[2024-05-19 11:14] VITALS: BP 139/63
[2024-05-19 12:14] LABS: Glucose - Point of Care 245 mg/dl (70-99)
--- NOTE | 2024-05-19 12:14 | W.PN.HOSP.TC ---
Today's Communication/Plan
-
see plan
Assessment / Plan
Assessment / Plan
Gen: NAD, AAOx3.
Eyes: EOMI, PERRLA, no scleral icterus.
Neck: supple.
CV: RRR, +S1/S2, no m/r/g.
Resp: CTAB anteriorly, no rales, wheezes, or rhonchi.
Abd: continues to remain +BS, soft, NT, ND
Skin: No rashes.
Neuro: CN 2-12 intact, non-focal.
Psych: Normal mood and affect.
05/12/24 11:51 Blood/Venous Blood Culture - Final
No Growth - Final Report
05/12/24 11:51 Blood/Venous Blood Culture - Final
No Growth - Final Report
05/14/24 06:00 Bile Body Fluid Culture - Final
No Growth After 72 Hours
05/14/24 06:00 Bile Gram Stain - Final
05/12/24 13:02 Urine Urine Culture - Final
NO GROWTH
CT C/A/P: Cholelithiasis with mild gallbladder distention and surrounding stranding concerning for acute cholecystitis. Recommend correlation with right upper quadrant ultrasound. There is mild wall thickening along the hepatic flexure, possibly
reactive mild colitis. Bibasilar airspace opacities which likely represent atelectasis.
RUQ U/S: Gallbladder sludge. Cannot exclude minimal gallbladder wall thickening. Negative sonographic Ramirez's sign. No findings to suggest biliary tract dilatation. Findings suggesting diffuse fatty liver. Pancreas, abdominal aorta and IVC
significantly obscured, most likely by overlying bowel gas.
HIDA: Patent common bile duct. Nonvisualization of the gallbladder suggesting cystic duct obstruction and possible acute cholecystitis.
Acute diabetic ketoacidosis:
-Due to insulin noncompliance due to abdominal pain due to acute cholecystitis
-RAYMOND on CKD3b due to volume contraction due to DKA and hypotension due to septic shock, POA. Cr improving.
-Note, anion gap metabolic acidosis was due to combination of DKA, RAYMOND, and lactic acidosis
-s/p IVFs
-AG now closed
-was on insulin gtt, now transitioned to basal/bolus insulin
-SSI/accuchecks
-diabetes DIRECTOR OF MANUFACTURING following
Septic shock due to acute cholecystitis:
-imaging above
-cont Cefepime/Flagyl
-BCxs NGTD
-Acute nonischemic myocardial injury due to septic shock
-Was on Levophed, then Jhoan-Synephrine, now off pressors
-s/p perc darrian on 05/14/24
-surgery following
Afib with RVR:
-converted to SR 05/13/24AM
-was on Amio gtt, then transitioned to PO Amio
-was on heparin gtt, now transitioned to Eliquis
-then converted back to afib with RVR on 05/14/24, cardizem gtt started, now off cardizem gtt and converted back to SR
-cont BB
Other problems:
HLD: cont statin
Essential HTN: cont BB
PAD: cont statin/ASA
R BKA
Renal calculi
Hyponatremia, resolved
FULL/Eliquis
Anticipated Discharge: Within 24 hours
Subjective/Interval History
-
Date of Service: May 19, 2024
Patient reports occasional abdominal pain.
Objective Data
-
Labs:
Laboratory Results
05/19/24
06:13
Sodium 138
Potassium 4.0
Chloride 109 H
Carbon Dioxide 26
BUN 40 H
Creatinine 1.6 H
Glucose 138 H
Calcium 7.9 L
Vital Signs:
Vital Signs
Temp Pulse Resp BP Pulse Ox
98.0 F 78 16 139/63 98
05/19/24 11:14 05/19/24 11:14 05/19/24 11:14 05/19/24 11:14 05/19/24 11:14
I&O
05/18/24 05/19/24 05/20/24
06:59 06:59 06:59
Intake Total 850 / 850 850 / 850
Output Total 2295 / 2295 3120 / 3120
Balance -1445 / -1445 -2270 / -2270
--- NOTE | 2024-05-19 12:29 | W.PN.NEPH.PH ---
Today's Communication / Plan
-
Creatinine at baseline will sign off
Assessment/Plan
-
IMP:
DKA
RAYMOND with CKD stage 3b baseline cr 1.4-1.7
Hypotension/?septic shock
suspected cholecystitis on CT
AFib with RVR
Elevated TPNI : NIMI
BPH
H/o U retention
Hypoantremia
Hypokalemia
hypocalcemia
Hypoalbuminemia
HLD
CAD s/p CABG
PAD Rt BKA
Renal calculi
Anemia of chronic disease
DM type 2 with circulatory complications
Non compliance
Plan:
A/w abd pain, CT concern of cholecystitis and noted hypotension on pressors and DKA
RAYMOND-highly suspect prerenal, cr improving from peak at 4.2 to 2.0 >1.7
however seem to have high PVR-monitor, low threshold for bosch , no hydro on CT
UA mild microhematuria and 2+alb-check U PCR 700mg/gm of cr: Likely related to diabetic nephropathy
met acidosis stable
avoid nephrotoxins
Hemodynamically more stable
Status post IR cholecystostomy
Chest x-ray from 4-25 without evidence of congestive heart failure
Diet advancing no need for further IV fluids at this
Renal function at baseline currently 1.5-1.7
Will sign off
-
-
Date of Service: May 19, 2024
CC / HPI / ROS
-
Chief Complaint:
RAYMOND
History of Present Illness:
Creatinine down to 2
Metabolic acidosis persists but improved
Hemodynamically stable
Review of Systems:
no cp or sob
abd pain no change
Nonoliguric but weights up
Labs
-
Labs:
WBC 8.8 10^3/uL (4.8-10.8) 05/18/24 07:50
RBC 2.64 10^6/uL (4.70-6.10) L 05/18/24 07:50
Hgb 7.8 g/dL (13.0-18.0) L 05/18/24 07:50
Hct 22.6 % (39.0-52.0) L 05/18/24 07:50
Plt Count 308 10^3/uL (130-400) 05/18/24 07:50
Sodium 138 mmol/L (135-145) 05/19/24 06:13
Potassium 4.0 mmol/L (3.5-5.1) 05/19/24 06:13
Chloride 109 mmol/L (98-107) H 05/19/24 06:13
Carbon Dioxide 26 mmol/L (22-30) 05/19/24 06:13
BUN 40 mg/dl (9-20) H 05/19/24 06:13
Creatinine 1.6 mg/dL (0.7-1.3) H 05/19/24 06:13
eGFR 45.21 05/19/24 06:13
Glucose 138 mg/dl (70-99) H 05/19/24 06:13
Calcium 7.9 mg/dl (8.4-10.2) L 05/19/24 06:13
Phosphorus 2.8 mg/dl (2.5-4.5) 05/13/24 04:26
Albumin 2.3 g/dl (3.5-5.0) L 05/13/24 04:26
Physical Exam
-
Vital Signs:
Vital Signs
Temp Pulse Resp BP Pulse Ox
98.0 F 78 16 139/63 98
05/19/24 11:14 05/19/24 11:14 05/19/24 11:14 05/19/24 11:14 05/19/24 11:14
Cardiovascular:: Irregular rate and rhythm
Respiratory:: Bilateral: CTA
Lung Excursion:: Normal
Abdomen:: Nontender and Soft
Bowel Sounds:: Normal
Extremity Edema:: None: Left:
Bosch Catheter: No
Other Findings::
right BKA stump
Choley ube
[2024-05-19 14:35] VITALS: BP 137/78
[2024-05-19 17:16] LABS: Glucose - Point of Care 240 mg/dl (70-99)
[2024-05-19] MEDS: NOVOLOG FLEXPEN 12 UNITS SC (17:31)
[2024-05-19 19:42] VITALS: BP 136/64
[2024-05-19] MEDS: DESYREL 25 MG PO (21:48)
[2024-05-19] MEDS: FLOMAX 0.4 MG PO (21:54)
[2024-05-19] MEDS: LANTUS 0.25 UNITS SC (21:58)
[2024-05-19 21:59] LABS: Glucose - Point of Care 257 mg/dl (70-99)
[2024-05-19 23:28] VITALS: BP 152/66
[2024-05-20] MEDS: STERILE WATER FOR INJECTION 10 ML IV ×2 (01:06→09:09)
[2024-05-20] MEDS: MAXIPIME 1000 MG IV ×2 (01:06→09:08)
[2024-05-20] MEDS: FLAGYL 500 MG 100 IV (01:10)
[2024-05-20 03:31] VITALS: BP 147/63
[2024-05-20 05:16] VITALS: BMI 24.2
[2024-05-20 07:00] VITALS: BP 143/63
[2024-05-20 07:33] LABS: Glucose - Point of Care 198 mg/dl (70-99)
--- NOTE | 2024-05-20 08:34 | PN.DE.MGMTRT ---
Insulin Management
- -
05/20/2024: Diabetes Management Follow up
74 year old male who p/w right-sided rib pain. When EMS arrived his blood pressure was low and blood glucose was 477.
PMH: ASCVD, CAD s/p CABG x 3, HTN, HLD, CKD IIIb, REGGIE, Anemia of CKD, PAD s/p right BKA, hypercholesterolemia and DM type II.
Patient known to diabetes team from multiple admissions. 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 Prior to admission was taking Lantus 17 units @
hs and Humalog 7 units with meals. Last A1C was 8.8% in December 2023, current A1C 7.7%. Cr 2.7, eGFR 24.13.
Pt awake, alert, sitting up in bed eating, offers no c/o, able to discuss diabetes mgt. Family at bedside, all questions answered.
Diet was advanced to 1800 johnny on 05/16. Cr 2.0-->1.7-->1.5, eGFR 48.85 today.
4/2 Glucose range 183 to 262, after clear liquids started. 05/16 Fasting glucose 215, HS Lantus was increased to 20 units.
/ FBG 172 (V), 206 POC, Lantus was increased to 22 units @ HS. Insulin was adjusted over the weekend due to persistent Hyperglycemia
4/6 premeal range 240 to 245, requiring 1-3 units of corrective insulin with meals. FBG 198 POC this AM
Will increase AC NovoLog to 15 units and Lantus to 28 units @ HS. Cont moderate corrective.
Meds at Discharge: NovoLog 15 units AC and Lantus to 28 units @ HS.
Discussed discharge diabetes plan of care with pt and family at bedside. Instructed pt to keep a glucose log at home and to followup with PCP to adjust inulin doses if needed.
Diabetes History
- -
Type of Diabetes: 2 requiring insulin
Pre-Admission Diabetes Regimen
Lab Results
Hemoglobin A1c 7.7 % (4.0-5.6) H 05/13/24 04:26
Insulin Pump Settings
IP Diabetes Regimen
05/19/24 05/19/24 05/19/24
12:13 17:14 21:58
POC Glucose 245 H 240 H 257 H
05/20/24
07:32
POC Glucose 198 H
Meal type: Breakfast
Amount consumed: 100%
Patient Education
[2024-05-20] MEDS: NOVOLOG FLEXPEN-MODERATE RESISTANCE 1 UNITS SC ×2 (08:42→18:07)
[2024-05-20] MEDS: NOVOLOG FLEXPEN 12 UNITS SC (08:43)
[2024-05-20 08:47] LABS: Hematocrit 24.5 % (39.0-52.0); Hemoglobin 8.4 g/dL (13.0-18.0); Mean Corp Hgb Conc. 34.3 g/dL (33.0-37.0); Mean Corpuscular Hgb 29.7 pg (27.0-31.0); Mean Corpuscular Volume 86.6 fL (80.0-94.0); Mean Platelet Volume 9.5 fL (7.4-10.4); Platelet Count 376 10^3/uL (130-400); Red Blood Cell Count 2.83 10^6/uL (4.70-6.10); Red Cell Dist. Width 14.9 % (11.5-14.5); White Blood Cell Count 8.6 10^3/uL (4.8-10.8)
[2024-05-20] MEDS: NSS (PRESERVATIVE FREE) 10 ML IV (08:59)
[2024-05-20 09:00] LABS: Blood Urea Nitrogen 35 mg/dl (9-20); Calcium 7.9 mg/dl (8.4-10.2); Carbon Dioxide 25 mmol/L (22-30); Chloride 108 mmol/L (98-107); Estimated Creatinine Clearance 52 ml/min; Glucose 163 mg/dl (70-99); Potassium 4.3 mmol/L (3.5-5.1); Sodium 139 mmol/L (135-145); eGFR 48.85
[2024-05-20] MEDS: PROTONIX IV 40 MG IV (09:00)
[2024-05-20] MEDS: FLUSH (NSS) 1 FLUSH IV (09:03)
[2024-05-20] MEDS: LIPITOR 40 MG PO (09:04)
[2024-05-20] MEDS: TOPROL XL 25 MG PO (09:04)
[2024-05-20] MEDS: PACERONE 200 MG PO ×2 (09:04→20:35)
[2024-05-20] MEDS: LOW STRENGTH ASPIRIN 81 MG PO (09:05)
[2024-05-20] MEDS: TYLENOL 1000 MG PO ×2 (09:05→18:06)
[2024-05-20] MEDS: ELIQUIS 5 MG PO ×2 (09:05→20:35)
[2024-05-20] MEDS: FLAGYL 500 MG PO (09:08)
[2024-05-20 11:00] VITALS: BP 138/65
--- NOTE | 2024-05-20 11:39 | W.PN.HOSP.TC ---
Today's Communication/Plan
-
see bold
Assessment / Plan
Assessment / Plan
Gen: NAD, AAOx3.
Eyes: EOMI, PERRLA, no scleral icterus.
Neck: supple.
CV: remains RRR, +S1/S2, no m/r/g.
Resp: remains CTAB anteriorly, no rales, wheezes, or rhonchi.
Abd: +BS, soft, NT, ND
Skin: No rashes.
Neuro: CN 2-12 intact, non-focal.
Psych: Normal mood and affect.
05/12/24 11:51 Blood/Venous Blood Culture - Final
No Growth - Final Report
05/12/24 11:51 Blood/Venous Blood Culture - Final
No Growth - Final Report
05/14/24 06:00 Bile Body Fluid Culture - Final
No Growth After 72 Hours
05/14/24 06:00 Bile Gram Stain - Final
05/12/24 13:02 Urine Urine Culture - Final
NO GROWTH
CT C/A/P: Cholelithiasis with mild gallbladder distention and surrounding stranding concerning for acute cholecystitis. Recommend correlation with right upper quadrant ultrasound. There is mild wall thickening along the hepatic flexure, possibly
reactive mild colitis. Bibasilar airspace opacities which likely represent atelectasis.
RUQ U/S: Gallbladder sludge. Cannot exclude minimal gallbladder wall thickening. Negative sonographic Ramirez's sign. No findings to suggest biliary tract dilatation. Findings suggesting diffuse fatty liver. Pancreas, abdominal aorta and IVC
significantly obscured, most likely by overlying bowel gas.
HIDA: Patent common bile duct. Nonvisualization of the gallbladder suggesting cystic duct obstruction and possible acute cholecystitis.
Acute diabetic ketoacidosis:
-Due to insulin noncompliance due to abdominal pain due to acute cholecystitis
-RAYMOND on CKD3b due to volume contraction due to DKA and hypotension due to septic shock, POA. Cr back at baseline and RAYMOND has resolved.
-Note, anion gap metabolic acidosis was due to combination of DKA, RAYMOND, and lactic acidosis
-s/p IVFs
-AG now closed
-was on insulin gtt, now transitioned to basal/bolus insulin
-SSI/accuchecks
-diabetes AIR ANTISUBMARINE OFFICER following
Septic shock due to acute cholecystitis:
-imaging above
-BCxs NGTD
-Acute nonischemic myocardial injury due to septic shock
-Was on Levophed, then Jhoan-Synephrine, now off pressors
-s/p perc darrian on 05/14/24
-currently on Cefepime/Flagyl, c/s ID for final abx recs
Afib with RVR:
-converted to SR 05/13/24AM
-was on Amio gtt, then transitioned to PO Amio
-was on heparin gtt, now transitioned to Eliquis
-then converted back to afib with RVR on 05/14/24, cardizem gtt started, now off cardizem gtt and converted back to SR
-cont BB
Other problems:
HLD: cont statin
Essential HTN: cont BB
PAD: cont statin/ASA
R BKA
Renal calculi
Hyponatremia, resolved
FULL/Eliquis
Medically cleared for d/c after seen by ID. Case management aware.
Anticipated Discharge: Today
Subjective/Interval History
-
Date of Service: May 20, 2024
Reports mild abdominal discomfort, unchanged from prior days.
Objective Data
-
Labs:
Laboratory Results
05/20/24
06:49
WBC 8.6
Hgb 8.4 L
Hct 24.5 L
Plt Count 376 D
Sodium 139
Potassium 4.3
Chloride 108 H
Carbon Dioxide 25
BUN 35 H
Creatinine 1.5 H
Glucose 163 H
Calcium 7.9 L
Vital Signs:
Vital Signs
Temp Pulse Resp BP Pulse Ox
98.0 F 79 18 138/65 96
05/20/24 11:00 05/20/24 11:00 05/20/24 11:00 05/20/24 11:00 05/20/24 11:00
I&O
05/19/24 05/20/24 05/21/24
06:59 06:59 06:59
Intake Total 850 / 850 690 / 690
Output Total 3120 / 3120 2480 / 2480 1085 / 1085
Balance -2270 / -2270 -1790 / -1790 -1075 / -1075
--- NOTE | 2024-05-20 12:43 | CM ---
Chart reviewed and plan is for patient to return to home when stable and then to [facility], patient will go home with visiting nurses, referral sent to [facility].
Plan; Home with [facility], patient to follow up with [facility] and then inpatient per [facility] and family.
[2024-05-20 12:46] LABS: Glucose - Point of Care 288 mg/dl (70-99)
[2024-05-20] MEDS: NOVOLOG FLEXPEN-MODERATE RESISTANCE 5 UNITS SC (12:57)
[2024-05-20] MEDS: NOVOLOG FLEXPEN 15 UNITS SC ×2 (12:58→18:07)
--- NOTE | 2024-05-20 13:28 | PN.IRAD.UPD ---
Update Note - IRAD
- -
Charline tube care and flushing was reviewed with the patient and family friends who will be assisting with care after discharge.
[2024-05-20 15:00] VITALS: BP 140/65
--- NOTE | 2024-05-20 15:38 | CON.ID ---
Consultation
-
Date/Time Consultation Requested: 05/19/24 17:18
Date/Time Consultation Performed: 05/20/24 15:39
Requesting Provider: Dr Burris
Performing Provider: Dr Barksdale
Reason for Consultation: sepsis due to acute cholecystitis, abx recs
Chief Complaint / Past History
Chief Complaint
abdominal pain
History of Present Illness
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 Took pepto-bismol and
imodium without improvement. Pain radiates to the back. He was admitted found to be inn DKA and septic shock, initially on levophed then ronan-synephrine, 05/13 HIDA scan: patent CBD but nonvisualization of the gallbladder and systic duct, he
underwent per-darrian on 05/14 and has been maintained on cefepime/flagyl, body fluid culture no growth at 72 hours, blood cultures no growth to date, course also notable for afib with RVR which converted 05/13 on amio, he has been on cefepime and flagyl
since 05/12 (9 days), currently afebrile, bp stable, wbc 8.6, hgb 8.4, plt 376, cr down trended from 4.1 on arrival to 1.5 today, when last checked 05/13 LFTs normalized, alk phos peaked at 144, ID is consulted for outpatient antibiotic
recommendations.
Past History
Additional Past Medical History:
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
CAD/Cabg x 3 vessel
HTN
HLD
DM2
Renal calculi
Additional Past Surgical History:
R lower extremity with third toe gangrene S/P left TMA 09/21/2023 w/ debridement on 09/13/2023 -Wound Cx: MSSA and strep
CABG x3 vessel 8 years ago
appendectomy
Allergy History:
No Known Allergies Allergy (Verified 05/12/24 11:00)
Medications Reviewed: Yes
Social History
Tobacco: Non-Smoker
Alcohol: None
Drug: None
Family History
Family History: Not Pertinent
Review of Systems
Review of Systems
General: Negative Fever or Chills
All systems: All other systems were reviewed and were negative
Vital Signs
Temp Pulse Resp BP Pulse Ox
98.0 F 79 18 138/65 96
05/20/24 11:00 05/20/24 11:00 05/20/24 11:00 05/20/24 11:00 05/20/24 11:00
Physical Exam
Physical Exam
Constitutional: No Acute Distress and Chronically Ill
Cardiovascular: Regular Rate and S1/S2; Negative Murmur or Rub
Pulmonary: Clear and Symmetric; Negative Wheezes, Rales or Rhonchi
Gastrointestinal: Soft, Non Tender, Non Distended and Normal Bowel Sounds
Skin: Warm and Dry; Negative Rash or Jaundice
Lines: Other (drain - brown fluid)
Lab / Diagnostic Study Results
05/20/24 06:49
05/20/24 06:49
Abs Immat Gran (auto) 0.2 10^3/uL (0-0.05) H 05/12/24 11:18
Absolute Neuts (auto) 17.0 10^3/uL (1.4-6.5) H 05/12/24 11:18
Absolute Lymphs (auto) 0.6 10^3/uL (1.2-3.4) L 05/12/24 11:18
Absolute Monos (auto) 1.6 10^3/uL (0.1-0.6) H 05/12/24 11:18
Absolute Basos (auto) 0.1 10^3/uL (0-0.2) 05/12/24 11:18
Immature Gran % 1.0 % (0-0.5) H 05/12/24 11:18
Neutrophils % 86.0 % (42.2-75.2) H 05/12/24 11:18
Lymphocytes % 3.0 % (20.5-51.1) L 05/12/24 11:18
Monocytes % 8.2 % (1.7-9.3) 05/12/24 11:18
Eosinophils % 1.5 % (0-6) 05/12/24 11:18
Basophils % 0.3 % (0-2) 05/12/24 11:18
PT 17.0 Sec (11.4-14.6) H 05/12/24 11:18
INR 1.35 05/12/24 11:18
Lactic Acid 1.8 mmol/L (0.7-2.0) 05/12/24 15:43
Ur Squamous Epith Cells 6-10 /LPF (Few) 05/12/24 13:02
Microbiology Results
Micro:
05/12/24 11:51 Blood Culture - Final
Blood/Venous No Growth - Final Report
05/12/24 11:51 Blood Culture - Final
Blood/Venous No Growth - Final Report
05/14/24 06:00 Body Fluid Culture - Final
Bile No Growth After 72 Hours
Gram Stain - Final
05/12/24 13:02 Urine Culture - Final
Urine NO GROWTH
Assessment / Plan
Acute cholecystitis
S/p Cholecystostomy Tube
RAYMOND on CKD
DKA- resolved
Septic shock - resolved
- has completed an adequate course of antibiotics for cholecystitis - stopped cefepime/metronidazole
- cholecystomy tube management per general surgery
- follow up with general surgery, stable for dc from ID perspective
[2024-05-20 16:56] LABS: Glucose - Point of Care 179 mg/dl (70-99)
[2024-05-20 19:46] VITALS: BP 106/59
[2024-05-20] MEDS: FLOMAX 0.4 MG PO (20:35)
[2024-05-20] MEDS: DESYREL 25 MG PO (20:35)
[2024-05-20 20:50] LABS: Glucose - Point of Care 204 mg/dl (70-99)
[2024-05-20] MEDS: LANTUS 0.28 UNITS SC (22:49)
[2024-05-20 23:23] VITALS: BP 144/73
[2024-05-21] MEDS: TYLENOL PO (01:00)
[2024-05-21 02:54] VITALS: BP 120/64
[2024-05-21 05:44] VITALS: BMI 23.8
[2024-05-21 07:23] VITALS: BP 136/58
[2024-05-21 07:48] LABS: Glucose - Point of Care 153 mg/dl (70-99)
[2024-05-21] MEDS: LOW STRENGTH ASPIRIN 81 MG PO (08:12)
[2024-05-21] MEDS: ELIQUIS 5 MG PO (08:12)
[2024-05-21] MEDS: NSS (PRESERVATIVE FREE) 10 ML IV (08:12)
[2024-05-21] MEDS: LIPITOR 40 MG PO (08:12)
[2024-05-21] MEDS: TOPROL XL 25 MG PO (08:13)
[2024-05-21] MEDS: TYLENOL 1000 MG PO (08:13)
[2024-05-21] MEDS: PROTONIX IV 40 MG IV (08:13)
[2024-05-21] MEDS: PACERONE 200 MG PO (08:14)
[2024-05-21 08:20] LABS: Blood Urea Nitrogen 33 mg/dl (9-20); Calcium 8.3 mg/dl (8.4-10.2); Carbon Dioxide 26 mmol/L (22-30); Chloride 107 mmol/L (98-107); Estimated Creatinine Clearance 52 ml/min; Glucose 119 mg/dl (70-99); Potassium 4.4 mmol/L (3.5-5.1); Sodium 139 mmol/L (135-145); eGFR 48.85
[2024-05-21] MEDS: NOVOLOG FLEXPEN 15 UNITS SC ×2 (08:20→12:21)
[2024-05-21] MEDS: NOVOLOG FLEXPEN-MODERATE RESISTANCE 1 UNITS SC (08:20)
--- NOTE | 2024-05-21 09:38 | PN.DE.MGMTRT ---
Insulin Management
- -
05/21/2024: Diabetes Management Follow up
74 year old male who p/w right-sided rib pain. When EMS arrived his blood pressure was low and blood glucose was 477.
PMH: ASCVD, CAD s/p CABG x 3, HTN, HLD, CKD IIIb, REGGIE, Anemia of CKD, PAD s/p right BKA, hypercholesterolemia and DM type II.
Patient known to diabetes team from multiple admissions. 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 Prior to admission was taking Lantus 17 units @
hs and Humalog 7 units with meals. Last A1C was 8.8% in December 2023, current A1C 7.7%. Cr 2.7, eGFR 24.13.
Pt awake, alert, sitting up in bed, offers no c/o, able to discuss diabetes care plan for home mgt.
Insulin was adjusted yesterday due to persistent Hyperglycemia. Cr 2.0-->1.7-->1.5, eGFR 48.85 today.
05/20 premeal range 179 to 288, HS glucose was 204 and FBG down to 119 V this AM
Will make no changes to current regimen. Cont AC NovoLog 15 units, HS Lantus 28 units and moderate corrective.
Meds at Discharge: NovoLog 15 units AC and Lantus to 28 units @ HS.
Discussed discharge diabetes plan of care with pt, he wrote current dose in his note book. Instructed pt to keep a glucose log at home and to followup with PCP to adjust inulin doses if needed.
Diabetes History
- -
Type of Diabetes: 2 requiring insulin
Pre-Admission Diabetes Regimen
05/21/24
07:07
Creatinine 1.5 H
Lab Results
Hemoglobin A1c 7.7 % (4.0-5.6) H 05/13/24 04:26
Insulin Pump Settings
IP Diabetes Regimen
05/20/24 05/20/24 05/20/24
12:45 16:55 20:49
Glucose
POC Glucose 288 H 179 H 204 H
05/21/24 05/21/24
07:07 07:47
Glucose 119 H
POC Glucose 153 H
Patient Education
--- NOTE | 2024-05-21 10:40 | W.PN.ID1 ---
Date of Service
Date of Service: May 21, 2024
Today's Communication
- has completed an adequate course of antibiotics for cholecystitis and remains well off of them - stopped cefepime/metronidazole 05/20
- cholecystomy tube management per general surgery
- follow up with general surgery, stable for dc from ID perspective
Assessment / Plan
Acute cholecystitis
S/p Cholecystostomy Tube
RAYMOND on CKD
DKA- resolved
Septic shock - resolved
- has completed an adequate course of antibiotics for cholecystitis and remains well off of them - stopped cefepime/metronidazole 05/20
- cholecystomy tube management per general surgery
- follow up with general surgery, stable for dc from ID perspective
Chief Complaint
-: Other (cholecystitis)
Subjective / Review of Systems
afebrile
bp stable
no events overnight
Vital Signs / Physical Exam
Vital Signs
Vital Signs
Temp Pulse Resp BP Pulse Ox
98.2 F 81 18 136/58 95
05/21/24 07:23 05/21/24 07:23 05/21/24 07:23 05/21/24 07:23 05/21/24 08:20
Physical Exam
Constitutional: No Acute Distress
Cardiovascular: Regular Rate and S1/S2; Negative Murmur or Rub
Pulmonary: Clear and Symmetric; Negative Wheezes or Rales
Gastrointestinal: Soft, Non Tender, Non Distended and Normal Bowel Sounds
Skin: Warm and Dry; Negative Rash or Jaundice
Lines: Other (drain with serous/brown drainage)
Objective Data
Lab Data
Lab Results
05/20/24 06:49
05/21/24 07:07
PT 17.0 Sec (11.4-14.6) H 05/12/24 11:18
INR 1.35 05/12/24 11:18
APTT 110.8 Sec (23.4-35.0) H 05/17/24 03:34
Estimated Creat Clear 52 ml/min 05/21/24 07:07
Lactic Acid 1.8 mmol/L (0.7-2.0) 05/12/24 15:43
Total Bilirubin 0.4 mg/dl (0.2-1.3) 05/13/24 04:26
AST 42 U/L (17-59) 05/13/24 04:26
ALT 44 U/L (0-50) 05/13/24 04:26
Alkaline Phosphatase 118 U/L (38-126) 05/13/24 04:26
Most recent labs reviewed.
Micro Results:
05/12/24 11:51 Blood Culture - Final
Blood/Venous No Growth - Final Report
05/12/24 11:51 Blood Culture - Final
Blood/Venous No Growth - Final Report
05/14/24 06:00 Body Fluid Culture - Final
Bile No Growth After 72 Hours
Gram Stain - Final
05/12/24 13:02 Urine Culture - Final
Urine NO GROWTH
[2024-05-21 11:03] VITALS: BP 132/54
[2024-05-21 11:23] LABS: Glucose - Point of Care 224 mg/dl (70-99)
--- NOTE | 2024-05-21 12:03 | W.PN.HOSP.TC ---
Today's Communication/Plan
-
d/c
Assessment / Plan
Assessment / Plan
Gen: NAD, AAOx3.
Eyes: EOMI, PERRLA, no scleral icterus.
Neck: supple.
CV: Continues to remain RRR, +S1/S2, no m/r/g.
Resp: Continues to remain CTAB anteriorly, no rales, wheezes, or rhonchi.
Abd: remains +BS, soft, NT, ND
Skin: No rashes.
Neuro: CN 2-12 intact, non-focal.
Psych: Normal mood and affect.
05/12/24 11:51 Blood/Venous Blood Culture - Final
No Growth - Final Report
05/12/24 11:51 Blood/Venous Blood Culture - Final
No Growth - Final Report
05/14/24 06:00 Bile Body Fluid Culture - Final
No Growth After 72 Hours
05/14/24 06:00 Bile Gram Stain - Final
05/12/24 13:02 Urine Urine Culture - Final
NO GROWTH
CT C/A/P: Cholelithiasis with mild gallbladder distention and surrounding stranding concerning for acute cholecystitis. Recommend correlation with right upper quadrant ultrasound. There is mild wall thickening along the hepatic flexure, possibly
reactive mild colitis. Bibasilar airspace opacities which likely represent atelectasis.
RUQ U/S: Gallbladder sludge. Cannot exclude minimal gallbladder wall thickening. Negative sonographic Ramirez's sign. No findings to suggest biliary tract dilatation. Findings suggesting diffuse fatty liver. Pancreas, abdominal aorta and IVC
significantly obscured, most likely by overlying bowel gas.
HIDA: Patent common bile duct. Nonvisualization of the gallbladder suggesting cystic duct obstruction and possible acute cholecystitis.
Acute diabetic ketoacidosis:
-Due to insulin noncompliance due to abdominal pain due to acute cholecystitis
-RAYMOND on CKD3b due to volume contraction due to DKA and hypotension due to septic shock, POA. Cr back at baseline and RAYMOND has resolved.
-Note, anion gap metabolic acidosis was due to combination of DKA, RAYMOND, and lactic acidosis
-s/p IVFs
-AG now closed
-was on insulin gtt, now transitioned to basal/bolus insulin
-SSI/accuchecks
-diabetes [employer] following
Septic shock due to acute cholecystitis:
-imaging above
-BCxs NGTD
-Acute nonischemic myocardial injury due to septic shock
-Was on Levophed, then Jhoan-Synephrine, now off pressors
-s/p perc darrian on 05/14/24
-was on Cefepime/Flagyl and completed the course of antibiotics on 05/20/24
Afib with RVR:
-converted to SR 05/13/24AM
-was on Amio gtt, then transitioned to PO Amio
-was on heparin gtt, now transitioned to Eliquis
-then converted back to afib with RVR on 05/14/24, cardizem gtt started, now off cardizem gtt and converted back to SR
-cont BB
Other problems:
HLD: cont statin
Essential HTN: cont BB
PAD: cont statin/ASA
R BKA
Renal calculi
Hyponatremia, resolved
FULL/Eliquis
Medically cleared for d/c. Case management aware.
Total time spent on d/c = 34 min. This included today's physical exam, progress note, review of laboratory and diagnostic data, preparation of discharge documents and prescriptions, and discussions about the pt's hospital course and discharge plan
with the patient and other biomedical electronics technician involved in the patient's care.
Anticipated Discharge: Today
Subjective/Interval History
-
Date of Service: May 21, 2024
No new complaints.
Objective Data
-
Labs:
Laboratory Results
05/21/24
07:07
Sodium 139
Potassium 4.4
Chloride 107
Carbon Dioxide 26
BUN 33 H
Creatinine 1.5 H
Glucose 119 H
Calcium 8.3 L
Vital Signs:
Vital Signs
Temp Pulse Resp BP Pulse Ox
98.2 F 77 18 132/54 94
05/21/24 11:03 05/21/24 11:03 05/21/24 11:03 05/21/24 11:03 05/21/24 11:03
I&O
05/20/24 05/21/24 05/22/24
06:59 06:59 06:59
Intake Total 690 / 690 850 / 850
Output Total 2480 / 2480 2315 / 2315
Balance -1790 / -1790 -1465 / -1465
[2024-05-21] MEDS: NOVOLOG FLEXPEN-MODERATE RESISTANCE 3 UNITS SC (12:21)
--- NOTE | 2024-05-21 12:50 | CM ---
CM reviewed chart, patient seen bedside, for discharge today. IMM reviewed, signed, placed in chart, patient provided with copy. Patient confirms he has transportation home. [facility], follow up with [facility]. CM will continue to follow for all
discharge planning needs.
Plan; Home with [facility], patient to follow up with [facility] and then inpatient per Long and family.
--- NOTE | 2024-05-21 14:06 | W.DCSUMMARY ---
Discharge Summary
Discharge Data
Date of Admission: 05/12/24
Date of Discharge: 05/21/24
-
Pending Results: No
Hospital Course
Primary diagnoses:
Acute diabetic ketoacidosis
Septic shock due to acute cholecystitis
Atrial fibrillation with rapid ventricular response
Acute kidney injury on chronic kidney disease stage 3b
Secondary diagnoses:
Acute nonischemic myocardial injury due to septic shock
Hyperlipidemia
Essential hypertension
Peripheral arterial disease
R below the knee amputation
Renal calculi
Hyponatremia
Lactic acidosis
Consultants:
Infectious disease
Nephrology
Cardiology
General Surgery
Critical care
Imaging:
CT C/A/P: Cholelithiasis with mild gallbladder distention and surrounding stranding concerning for acute cholecystitis. Recommend correlation with right upper quadrant ultrasound. There is mild wall thickening along the hepatic flexure, possibly
reactive mild colitis. Bibasilar airspace opacities which likely represent atelectasis.
RUQ U/S: Gallbladder sludge. Cannot exclude minimal gallbladder wall thickening. Negative sonographic Ramirez's sign. No findings to suggest biliary tract dilatation. Findings suggesting diffuse fatty liver. Pancreas, abdominal aorta and IVC
significantly obscured, most likely by overlying bowel gas.
HIDA: Patent common bile duct. Nonvisualization of the gallbladder suggesting cystic duct obstruction and possible acute cholecystitis.
Echo: Technically difficult study.
Normal left ventricular size and systolic function. Normal left ventricular
wall thickness. No regional wall motion abnormalities are seen. LV ejection
fraction is 50%.
Mild mitral regurgitation.
Mild tricuspid regurgitation.
Compared to previous echo from July 2014, there is now mild MR
74-year-old male who presented with chief complaint of right rib pain as outlined in the H&P done on admission. Hospital course by problem was:
Acute diabetic ketoacidosis: This was due to insulin noncompliance due to abdominal pain due to acute cholecystitis. The patient had RAYMOND on CKD3b due to volume contraction due to DKA and hypotension due to septic shock, POA. Patient was treated
with an insulin drip and aggressive IV fluids and his creatinine returned to baseline. He had an anion gap metabolic acidosis was due to combination of DKA, RAYMOND, and lactic acidosis. He was transitioned to basal bolus insulin.
Septic shock due to acute cholecystitis: Imaging above. Patient required Levophed, then Jhoan-Synephrine, and then was weaned off pressors. He received aggressive IV fluids. Blood cultures were no growth. Patient was on cefepime and Flagyl. He
was seen by surgery. He had placement of percutaneous cholecystostomy tube. Patient was seen in consultation by infectious disease. He completed his antibiotic course on 05/20/24.
Afib with RVR: The patient went into atrial fibrillation with rapid ventricular response. He converted to sinus rhythm 05/13/24AM. He was placed on amiodarone drip and then transition to oral amiodarone. He was on a heparin drip and then
transition to Eliquis. On 05/14/24 patient went back into atrial fibrillation with referential response and required a Cardizem drip. He was also on metoprolol while hospitalized.
Discharge Plan
-
Patient Disposition: Home (Routine Discharge)
Discharge Diagnosis/Procedures: Acute diabetic ketoacidosis, Septic shock due to acute cholecystitis, atrial fibrillation with rapid ventricular response
Condition: Good
Diet: Diabetic, Carb Controlled
Activity: With assistance
Driving Restrictions: No driving
Bathing Restrictions: OK to Shower
Blood Work: BMP and CBC in 1 week, prescription from PCP
Activity Restrictions/Additional Instructions:
See attached instructions from IR for your drainage tube. You will need to flush it daily (toward your body) with 10ml of sterile saline. Follow up with your surgeon to discuss next steps.
Referrals:
Gene Banks, DO [Family Provider] - in less than 1 week
Michi Mcfadden MD [Active] - in two to three weeks
Garima Noel PA-C [Specified Professional Personl] - 06/07/24 11:00 am (You have cardiology follow-up with Garima Noel on June 07 at 11 AM in [place] [facility]. If you are unable to make this
appointment please call [phone] to reschedule)
Prescriptions:
New
sodium chloride 0.9 % (flush) [Normal Saline Flush] Syringe
10 ml intra-catheter DAILY Qty: 500 0RF
Rx Instructions:
flush cholecystostomy tube daily with 10ml of sterile NSS
Eliquis 5 mg Tablet
5 mg PO BID Qty: 60 0RF
amiodarone 200 mg Tablet
200 mg PO BID Qty: 60 0RF
metoprolol succinate 25 mg Tablet Extended Release 24 Hr
25 mg PO DAILY Qty: 30 0RF
pantoprazole [Protonix] 40 mg tablet,delayed release (DR/EC)
40 mg PO DAILY Qty: 30 0RF
(DME) pen needle, diabetic [Delicia 2nd Gen Pen Needle] 32 gauge x 5/32' Needle
Qty: 130 0RF
Rx Instructions:
Pt taking insulin 4 times a day
Continued
loperamide 2 mg Tablet
2 mg PO TIDPRN PRN (Reason: diarrhea)
lidocaine 5 % adhesive patch,medicated
1 patch topical DAILYPRN PRN (Reason: mild pain)
trazodone 50 mg tablet
25 mg PO HS
cholecalciferol (vitamin D3) 25 mcg (1,000 unit) tablet
25 mcg PO DAILY
multivitamin with folic acid [Tab-A-Rafita] 400 mcg tablet
1 tab PO DAILY
acetaminophen 325 mg Tablet
650 mg PO Q4HPRN PRN (Reason: mild pain) Qty: 90 0RF
tamsulosin 0.4 mg Capsule
0.4 mg PO HS Qty: 30 0RF
atorvastatin 40 MG tablet
40 mg PO DAILY Qty: 30 0RF
aspirin 81 mg Tablet,Chewable
81 mg PO DAILY Qty: 30 0RF
Changed
insulin lispro [Humalog KwikPen Insulin] 100 unit/mL Insulin Pen
15 unit SC AC Qty: 5 0RF
Rx Instructions:
Take 15 units before each meal
insulin glargine [Lantus Solostar U-100 Insulin] 100 unit/mL (3 mL) Insulin Pen
28 unit SC HS Qty: 15 0RF
Rx Instructions:
Take 28 units at bedtime
Discontinued
metoprolol succinate 50 mg Tablet Extended Release 24 Hr
50 mg PO NOON Qty: 30 0RF
amlodipine 2.5 mg Tablet
2.5 mg PO DAILY Qty: 30 0RF
clopidogrel 75 mg Tablet
75 mg PO DAILY Qty: 30 0RF
Discharge Orders:
Discharge Patient (As Directed); Ordered 05/21/24
Ordered By: Bebo Burris
Discharge Date and Time
Print Language: SPANISH
== END 2024-05-21 15:12 | disposition home health service (06) | DRG 871 ==
LOC: 4 WEST ACU 13:19
PROVIDERS: Internal Medicine Critical Care Medicine; Nurse Practitioner Primary Care; Radiology Diagnostic Radiology; Specialist; ADMITTING PHYSICIAN Internal Medicine; ATTENDING PHYSICIAN Internal Medicine; CONSULT PHYSICIAN Internal Medicine Critical Care Medicine; CONSULT PHYSICIAN Internal Medicine Gastroenterology; CONSULT PHYSICIAN Nuclear Medicine Nuclear Cardiology; EMERGENCY PHYSICIAN Emergency Medicine; FAMILY PHYSICIAN Family Medicine; OTHER PHYSICIAN Internal Medicine; OTHER PHYSICIAN Student in an Organized Health Care Education/Training Program; OTHER PHYSICIAN Surgery
PROC: 0F9430Z Drainage of Gallbladder with Drainage Device, Percutaneous Approach (ICD-10-PCS; 2024-05-14)
DX: A41.9 Sepsis, unspecified organism (principal); E11.10 Type 2 diabetes mellitus with ketoacidosis without coma; R65.21 Severe sepsis with septic shock; K80.00 Calculus of gallbladder with acute cholecystitis without obstruction; N17.9 Acute kidney failure, unspecified; E87.1 Hypo-osmolality and hyponatremia; E11.52 Type 2 diabetes mellitus with diabetic peripheral angiopathy with gangrene; J98.11 Atelectasis; I5A Non-ischemic myocardial injury (non-traumatic); I48.0 Paroxysmal atrial fibrillation; N18.32 Chronic kidney disease, stage 3b; D63.1 Anemia in chronic kidney disease; I12.9 Hypertensive chronic kidney disease with stage 1 through stage 4 chronic kidney disease, or unspecified chronic kidney disease; Z89.511 Acquired absence of right leg below knee; Z87.442 Personal history of urinary calculi; E78.00 Pure hypercholesterolemia, unspecified; Z91.199 Patient's noncompliance with other medical treatment and regimen due to unspecified reason; E11.22 Type 2 diabetes mellitus with diabetic chronic kidney disease; E83.51 Hypocalcemia; I25.10 Atherosclerotic heart disease of native coronary artery without angina pectoris; Z95.1 Presence of aortocoronary bypass graft; Z79.84 Long term (current) use of oral hypoglycemic drugs; I45.10 Unspecified right bundle-branch block; N40.1 Benign prostatic hyperplasia with lower urinary tract symptoms; E87.6 Hypokalemia; E88.09 Other disorders of plasma-protein metabolism, not elsewhere classified; R33.8 Other retention of urine; Z79.02 Long term (current) use of antithrombotics/antiplatelets; Z79.4 Long term (current) use of insulin; Z79.82 Long term (current) use of aspirin; Z79.899 Other long term (current) drug therapy; Z80.1 Family history of malignant neoplasm of trachea, bronchus and lung; Z83.3 Family history of diabetes mellitus
CPT/HCPCS: 36600; 47490; 71045; 71250; 74176; 76700; 78226; 80048; 80053; 80061; 81003; 81015; 82010; 82248; 82330; 82570; 82805; 82962; 83036; 83605; 83690; 83735; 83935; 84100; 84156; 84300; 84484; 85014; 85018; 85025; 85027; 85610; 85730; 86850; 86900; 86901; 87015; 87040; 87070; 87086; 87205; 93005; 93306; 96360; 97163; 97166; 97530; 99291; A9537; Q9950

== ENCOUNTER → 2024-05-28 13:40 | Outpatient (REF) | payer MEDICARE, OTHER, SELFPAY ==
[2024-05-28 14:16] LABS: % Basophils 1.3 % (0-2); % Eosinophils 3.8 % (0-6); % Immature Granulocytes 0.5 % (0-0.5); % Lymphocytes 25.6 % (20.5-51.1); % Monocytes 9.8 % (1.7-9.3); Absolute Basophils 0.1 10^3/uL (0-0.2); Absolute Eosinophils 0.2 10^3/uL (0-0.7); Absolute Lymphocytes 1.4 10^3/uL (1.2-3.4); Absolute Monocytes 0.6 10^3/uL (0.1-0.6); Absolute Neutrophils 3.3 10^3/uL (1.4-6.5); Hematocrit 28.9 % (39.0-52.0); Hemoglobin 9.4 g/dL (13.0-18.0); Mean Corp Hgb Conc. 32.5 g/dL (33.0-37.0); Mean Corpuscular Hgb 29.7 pg (27.0-31.0); Mean Corpuscular Volume 91.5 fL (80.0-94.0); Mean Platelet Volume 9.3 fL (7.4-10.4); Nucleated Red Blood Cells % 0 % (-); Platelet Count 441 10^3/uL (130-400); Red Blood Cell Count 3.16 10^6/uL (4.70-6.10); Red Cell Dist. Width 16.7 % (11.5-14.5); White Blood Cell Count 5.6 10^3/uL (4.8-10.8)
[2024-05-28 14:46] LABS: Blood Urea Nitrogen 26 mg/dl (9-20); Calcium 8.7 mg/dl (8.4-10.2); Carbon Dioxide 24 mmol/L (22-30); Chloride 111 mmol/L (98-107); Glucose 89 mg/dl (70-99); Potassium 5.6 mmol/L (3.5-5.1); Sodium 144 mmol/L (135-145); eGFR 48.85
== END ==
LOC: CLAB 13:40
PROVIDERS: ATTENDING PHYSICIAN Family Medicine
DX: K81.0 Acute cholecystitis (principal)
CPT/HCPCS: 80048; 85025

== ENCOUNTER → 2024-06-12 11:33 | Outpatient (REF) | payer MEDICARE, OTHER, SELFPAY ==
[2024-06-12 11:41] VITALS: BP 127/67; BP_SYST 70
== END ==
LOC: RADI 11:33
PROVIDERS: ATTENDING PHYSICIAN Surgery
DX: Z43.4 Encounter for attention to other artificial openings of digestive tract (principal); K80.00 Calculus of gallbladder with acute cholecystitis without obstruction
CPT/HCPCS: 47531

== ENCOUNTER 2024-07-21 06:00 | Inpatient (IN) | payer MEDICARE, OTHER, SELFPAY ==
--- NOTE | 2024-07-17 10:50 | CM ---
Addendum entered by Cydney Fitch RN 07/17/24 10:55:
CM confirmed that patient is staying over night post operatively. CM updated patient.
Original Note:
CM spoke with patient. Patient in curious if he is staying overnight post operatively. Patient stated that he does lives alone, but his friend Nisha who is also his POA will be providing transportation home.
CM reached out to Dr. Ennis to confirm discharge plan.
[2024-07-18] VITALS (18 sets, daily range): BP systolic 10–160; BP diastolic 57–74; BMI 23.1
[2024-07-18] MEDS: TYLENOL 1000 MG PO (10:15)
[2024-07-18] MEDS: NORMOSOL-R/PLASMALYTE-A 1000 IV (10:19)
[2024-07-18 10:22] LABS: Glucose - Point of Care 175 mg/dl (70-99)
--- NOTE | 2024-07-18 10:45 | HP.FOC2 ---
Focused History & Physical
Chief Complaint
HPI:
Chief Complaint: Presence of a cholecystostomy tube
HPI / Indication for Planned Procedure: This is a 74-year-old male on Eliquis who presented to our hospital with acute calculus cholecystitis which was managed with percutaneous cholecystostomy tube. A recent tube injection study revealed patency
of the duct. He understands that he is at 'acceptable cardiac risk' for an adverse event such as stroke, [place], . He wishes to still proceed with surgery. Will plan for a laparoscopic cholecystectomy and removal of percutaneous cholecystostomy
tube.
Relevant Past Medical History: Negative
Relevant Social History: Negative
Relevant Family History: Negative
Relevant Past Surgical History: Positive for (Remote appendectomy)
Review of Systems
Review of Pertinent Systems: All Systems Negative
Medication
See Medication form for detailed medications: Yes
Medication List (including Herbals & OTC):
oxycodone 5 mg tablet 5 mg PO Q4HPRN PRN mild pain #10 tabs 01/30/24
cholecalciferol (vitamin D3) 25 mcg (1,000 unit) tablet 25 mcg PO DAILY Supplement 05/12/24
multivitamin with folic acid 400 mcg tablet (Tab-A-Rafita) 1 tab PO DAILY Supplement 05/12/24
amiodarone 200 mg tablet 200 mg PO BID #60 tabs 05/21/24
apixaban 5 mg tablet (Eliquis) 5 mg PO BID #60 tabs 05/21/24
insulin glargine 100 unit/mL (3 mL) subcutaneous pen (Lantus Solostar U-100 Insulin) 28 unit (0.28 mL) SC HS Diabetes #15 mL 05/21/24
acetaminophen 325 mg tablet 650 mg PO PRN PRN mild pain 07/16/24
insulin lispro 100 unit/mL subcutaneous pen (Humalog KwikPen (U-100) Insulin) 10 - 11 unit SC AC Diabetes 07/16/24
magnesium chloride 71.5 mg (magnesium chloride) tablet,delayed release (Slow-Mag) 71.5 mg PO BID 07/16/24
omega 3-mpi-afg-fish oil 1,000 mg (120 mg-180 mg) capsule (Fish Oil) 1 cap PO DAILY 07/16/24
metoprolol succinate 50 mg PO BID 07/18/24
sodium zirconium cyclosilicate 5 gram oral powder packet (Lokelma) 5 g PO DAILY 07/18/24
Medications Reviewed: Yes
Allergies and Reactions
Patient has Allergies: No
Noted Allergies and Reactions:
Allergy/AdvReac Type Severity Reaction Status Date / Time
No Known Allergies Allergy Verified 07/18/24 10:05
Pertinent Physical Exam
All Other Systems: Negative
Head/Neck: Normal
Diagnosis / Assessment
This is a 74-year-old male with a history of acute cholecystitis managed with a percutaneous cholecystostomy tube here for removal.
Plan / Procedure
Will plan for a laparoscopic cholecystectomy with cholangiogram and removal of percutaneous cholecystostomy tube.
Anesthesia/Sedation to be done by Anesthesia Provider: Yes
[2024-07-18 14:18] LABS: Glucose - Point of Care 265 mg/dl (70-99)
[2024-07-18] MEDS: SUBLIMAZE 50 MCG IV ×2 (15:05→15:21)
[2024-07-18 15:07] LABS: Glucose - Point of Care 290 mg/dl (70-99)
[2024-07-18] MEDS: NOVOLOG vial 4 UNITS SC (15:11)
--- NOTE | 2024-07-18 15:12 | W.IMMPOSTOP ---
Surgical Immed Post Op Note
-
Primary Surgeon: Michi Mcfadden MD
Assisting Surgeon: None
Pre-op Diagnosis: Acute cholecystitis, presence of a cholecystostomy tube
Post-op Diagnosis: Same
Procedure Performed:
1. Laparoscopic fenestrating subtotal cholecystectomy, removal of cholecystostomy tube
2. Drainage of intra-abdominal abscess
Anesthesia Type: General
Specimen / Cultures: Gallbladder and contents
Estimated Blood Loss: 23 cc
Complications: None
Operative Findings: Severely inflamed gallbladder with thick dense adhesions from the gallbladder and surrounding periduodenal tissue to a surface of the gallbladder all lysed with electrocautery, bipolar energy, blunt and sharp dissection. The
cystic triangle was completely obliterated so we elected to do a subtotal cholecystectomy. There was a significant amount of pus emanating from the gallbladder itself which was suctioned up. There is also numerous black small gallstones that were
also all suctioned up. A 4 x 4 Ray-Jack was placed in the base of our dissection to help trap all these stones. The ostium of the cystic duct could not be identified so after placing Surgiflo over the surface the gallbladder a 19 [place] round Abrahan
drain was then introduced through the right lateralmost port draped across the field and secured at the skin with a 3-0 nylon suture.
POST OP PLAN:
Imaging: None
Labs: Routine AM
Diet: Clears, n.p.o. at midnight
Analgesia: Tylenol 650mg q6 Reyan, Jena 5mg q6 PRN, Dilaudid 0.5mg q2h PRN
Neuro/vascular checks: q4h
AC/AP: Hold Therapeutic AC, Ok for DVT PPx
Activity: Ad Leti
Wound/Incisions/Drains: Routine, LIDIA to bulb suction
Abx: Will continue Zosyn x 4 days
Dispo: RNF, anticipate patient staying through the weekend. High risk for bile/cystic duct leak
--- NOTE | 2024-07-18 18:33 | PTCARENOTE ---
Patient admitted from PACU post laparoscopic cholecystectomy and drainage of intra abdominal abbess.The patient rates his pain at a 6 out of 10.The patient is drowsy but arouses easily.Vital signs are stable.All incisions are intact without any
drainage.The patient is in his bed with the call abbott in reach.
[2024-07-18] MEDS: NOVOLOG FLEXPEN-MODERATE RESISTANCE SC (19:37)
[2024-07-18] MEDS: LOPRESSOR 50 MG PO (20:02)
[2024-07-18] MEDS: ZOSYN 50 IV (20:03)
[2024-07-18] MEDS: TYLENOL 650 MG PO (20:03)
[2024-07-18] MEDS: PACERONE 200 MG PO (20:03)
[2024-07-18 21:43] LABS: Glucose - Point of Care 249 mg/dl (70-99)
[2024-07-18] MEDS: LANTUS 0.14 UNITS SC (21:44)
[2024-07-19] MEDS: TYLENOL 650 MG PO ×4 (00:46→21:14)
[2024-07-19] MEDS: ZOSYN 50 IV ×4 (02:04→19:46)
[2024-07-19 03:13] VITALS: BP 121/59
[2024-07-19] MEDS: TYLENOL PO ×2 (05:41→10:16)
[2024-07-19 06:26] LABS: % Basophils 0.1 % (0-2); % Immature Granulocytes 0.7 % (0-0.5); % Lymphocytes 7.2 % (20.5-51.1); % Monocytes 6.8 % (1.7-9.3); % Neutrophils 85.2 % (42.2-75.2); Absolute Immature Granulocytes 0.1 10^3/uL (0-0.05); Absolute Lymphocytes 0.8 10^3/uL (1.2-3.4); Absolute Monocytes 0.7 10^3/uL (0.1-0.6); Absolute Neutrophils 9.1 10^3/uL (1.4-6.5); Hematocrit 28.1 % (39.0-52.0); Hemoglobin 9.7 g/dL (13.0-18.0); Mean Corp Hgb Conc. 34.5 g/dL (33.0-37.0); Mean Platelet Volume 9.9 fL (7.4-10.4); Nucleated Red Blood Cells % 0 % (-); Platelet Count 234 10^3/uL (130-400); Red Blood Cell Count 3.23 10^6/uL (4.70-6.10); Red Cell Dist. Width 13.6 % (11.5-14.5); White Blood Cell Count 10.6 10^3/uL (4.8-10.8)
[2024-07-19 06:54] LABS: ALT (SGPT) 54 U/L (0-50); AST (SGOT) 32 U/L (17-59); Albumin 3.3 g/dl (3.5-5.0); Alkaline Phosphatase 94 U/L (38-126); Blood Urea Nitrogen 45 mg/dl (9-20); Calcium 8.2 mg/dl (8.4-10.2); Carbon Dioxide 22 mmol/L (22-30); Chloride 109 mmol/L (98-107); Estimated Creatinine Clearance 42 ml/min; Glucose 204 mg/dl (70-99); Potassium 5.5 mmol/L (3.5-5.1); Sodium 139 mmol/L (135-145); Total Bilirubin 0.4 mg/dl (0.2-1.3); eGFR 36.79
[2024-07-19 07:10] VITALS: BP 125/55
[2024-07-19 07:26] LABS: Glucose - Point of Care 189 mg/dl (70-99)
[2024-07-19] MEDS: LOKELMA 5 GRAM PO (08:04)
[2024-07-19] MEDS: NSS 1000 IV ×2 (08:05→19:46)
[2024-07-19] MEDS: NOVOLOG FLEXPEN-MODERATE RESISTANCE 1 UNITS SC ×3 (08:28→17:24)
[2024-07-19] MEDS: LOPRESSOR 50 MG PO ×2 (10:13→19:47)
[2024-07-19] MEDS: PACERONE 200 MG PO ×2 (10:16→19:47)
--- NOTE | 2024-07-19 11:21 | CM ---
CM following re: discharge planning.
Reviewed pt's chart, met with pt.
Pt is a 74 year old man, admitted with SDC status and primary dx of POD#1 Laparoscopic fenestrating subtotal cholecystectomy, removal of cholecystostomy tube. Drainage of intra-abdominal abscess.
Pt reports he is admitted from [facility] for scheduled surgery and his plan is to return home with already scheduled outpatient [facility] at [facility].
Pt reports he lives alone 1SH, 3 steps to enter, has a cane and a wheelchair for a long distance, has no family, has supportive friend Nisha, known [facility].
PCP: Gene Banks
Pharmacy: [facility].
D/C plan: home with outpatient [facility] at [facility]. pt stated his friend Nisha will transport.
CM will follow with discharge plan updates as hospitalization progresses.
[2024-07-19 11:30] VITALS: BP 118/55
--- NOTE | 2024-07-19 11:43 | W.PN.GS2 ---
Addendum entered and electronically signed by Saul Patel MD 07/19/24 12:38:
I saw and examined the patient.
The resident's note was reviewed and I agree with the note with the following additions/corrections.
Comment: POD1 subtotal lap darrian, abd approp ttp, Tbili WNL, drain ss and volume <100cc. Adv diet. HyperK+ noted. RAYMOND noted. Cont IVF with reduced K load. Cont abx for today
Original Note:
Today's Communication / Plan
-
Repeat BMP
Monitor LIDIA drain output
Continue to monitor
Assessment / Plan
-
This is a 74-year-old male who underwent laparoscopic fenestrating subtotal cholecystectomy, removal of cholecystostomy tube and drainage of intra-abdominal abscess for acute cholecystitis with presence of cholecystostomy tube which was placed for
management of acute calculus cholecystitis.
Postop day 1
Reviewed the pathophysiology of his disease and the events that contributed to decision making regarding his complicated surgery
LIDIA drain with suction bulb, draining reddish fluid, no pus no bile
Explained to the patient that it would be reasonable to continue to monitor the output and if it continues to remain noninfectious and goes down on its own he may not require any further surgery
It was also explained to the patient that in case the output increases dramatically or if it becomes infectious then he may need to undergo an endoscopic procedure to remove the remaining gallbladder
Patient demonstrates understanding and is okay for staying in hospital for observation
Lab review
WBC normal
Hemoglobin stable at 9.7
Hyperkalemia with potassium of 5.5
Serum creatinine elevated to 1.9
Added Lokelma to treat hyperkalemia, repeat BMP
Continue IV fluids and monitor serum creatinine
Input output monitoring
Antibiotics-Zosyn
DVT prophylaxis enoxaparin
CODE STATUS full code
Subjective Data
-
Date of Service: July 19, 2024
Patient feeling frustrated and anxious. But understands the reasons for keeping him in hospital through the weekend
Understands the reason why his surgery was complicated
Rates the pain 06/22, Tylenol helps
Objective Data
-
Intake and Output
07/18/24 07/19/24 07/20/24
06:59 06:59 06:59
Intake Total 100 / 100
Output Total 1245 / 1245
Balance -1145 / -1145
Intake:
IV piggybacks 100 / 100
Output:
Drain Output (Total) 95 / 95
Right Lower Abdomen 40 / 40
Right Lower Cm-Garay 55 / 55
Urine, Voided 1150 / 1150
Vital Signs
Temp Pulse Resp BP Pulse Ox
98.1 F 69 16 131/60 97
07/19/24 07:10 07/19/24 10:16 07/19/24 07:10 07/19/24 10:16 07/19/24 07:10
Lab Results
07/19/24 05:55
Calcium 8.2 mg/dl (8.4-10.2) L 07/19/24 05:55
Total Bilirubin 0.4 mg/dl (0.2-1.3) 07/19/24 05:55
AST 32 U/L (17-59) 07/19/24 05:55
ALT 54 U/L (0-50) H 07/19/24 05:55
Alkaline Phosphatase 94 U/L (38-126) 07/19/24 05:55
Total Protein 6.0 g/dl (6.3-8.2) L 07/19/24 05:55
Albumin 3.3 g/dl (3.5-5.0) L 07/19/24 05:55
Physical Exam
-
No apparent distress
Abdomen soft, tender, incisions look okay, LIDIA to bulb suction in place with reddish [id number] mL
Chest clear to auscultation bilaterally
Patient has a bosch catheter: No
Patient has a central line: No
[2024-07-19 11:50] LABS: Glucose - Point of Care 197 mg/dl (70-99)
[2024-07-19 14:23] LABS: Blood Urea Nitrogen 45 mg/dl (9-20); Calcium 7.9 mg/dl (8.4-10.2); Carbon Dioxide 21 mmol/L (22-30); Chloride 110 mmol/L (98-107); Estimated Creatinine Clearance 40 ml/min; Glucose 151 mg/dl (70-99); Potassium 4.7 mmol/L (3.5-5.1); Sodium 139 mmol/L (135-145); eGFR 34.59
[2024-07-19 15:20] VITALS: BP 110/49
[2024-07-19 16:47] LABS: Glucose - Point of Care 187 mg/dl (70-99)
--- NOTE | 2024-07-19 16:52 | OR.RPT ---
Operative Report
Operative Report
Patient Name: Flaquito Jamil
: 1950
Date of Operation: 07/18/2024
Preoperative Diagnosis: Acute cholecystitis, presence of a cholecystostomy tube
Postoperative Diagnosis: Same
Procedure(s):
1. Laparoscopic fenestrating subtotal cholecystectomy with removal of a cholecystostomy tube
2. Drainage of an intra-abdominal abscess
Surgeon(s):
Dr. Mcfadden
Mobile Ui Designer(s):
Cj Manley MD
Raymundo Parks MD ([id number])
Anesthesia: General
Estimated Blood Loss: 20 cc
Urine Output: None
Drains/Lines/Implants: 19 [place] round drain in the gallbladder fossa tied at the skin with a 2-0 nylon suture.
Specimens:
1. Gallbladder and contents
HPI/Surgical Indications:
This is a 74-year-old male who presented to our hospital in May with acute cholecystitis that was managed with a percutaneous cholecystostomy tube. He presents today for removal of the tube and interval cholecystectomy.
Risks/Benefits/Alternatives were discussed at length, and the patient agreed to proceed with surgery.
Operative Findings: Severely inflamed gallbladder with thick dense adhesions from the gallbladder and surrounding periduodenal tissue to a surface of the gallbladder all lysed with electrocautery, bipolar energy, blunt and sharp dissection. The
cystic triangle was completely obliterated so we elected to do a subtotal cholecystectomy. There was a significant amount of pus emanating from the gallbladder itself which was suctioned up. There is also numerous black small gallstones that were
also all suctioned up. A 4 x 4 Ray-Jack was placed in the base of our dissection to help trap all these stones. The ostium of the cystic duct could not be identified so after placing Surgiflo over the surface the gallbladder a 19 [place] round Abrahan
drain was then introduced through the right lateralmost port draped across the field and secured at the skin with a 3-0 nylon suture.
Procedure Description:
The patient was brought to the Operating Room and placed in the supine position with one arm tucked. Following uneventful induction of general endotracheal anesthesia, an orogastric tube was placed. The abdomen was prepped and draped in the usual
sterile fashion. A timeout was performed confirming the procedure, consent, and that IV antibiotics were infused and sequential compression devices were confirmed to be on. [The abdomen was entered using a left subcostal Veress technique which
required a single pass followed by a 5 mm right upper quadrant Optiview trocar.] Pneumoperitoneum to 15 mmHg pressure was obtained without difficulty and we confirmed that no injury had occurred during our entry. The patient was positioned in
reverse Trendelenberg and rotated with the right side up slightly. [Two 5 mm trocars were then placed along the right subcostal margin, followed by a 12 mm port in the epigastrium.] Initially we could not even see the gallbladder as there was such
severe thick adhesions overlying the surface of it. These were carefully dissected away eventually exposing the gallbladder wall. This was used with a combination of electrocautery, bipolar energy, blunt dissection as well as sharp dissection.
The second portion of the duodenum was plastered over the infundibulum and was very challenging to safely fully dissected away. At this portion of the case Dr. Manley scrubbed in briefly to assist with part of the dissection but we were unable to
safely expose the cystic triangle so he scrubbed out. At this point we elected to do a top-down subtotal fenestrating cholecystectomy. A 4 x 4 Ray-Jack was inserted at the base of the dissection to help trap any debris. The percutaneous
cholecystostomy tube was cut and divided and the gallbladder was entered. There is a significant amount of white pus that emanated from the gallbladder which was suctioned up. There is also numerous small black stones which were also removed or
suctioned up. The anterior plate of the exposed gallbladder was removed. We did attempt to try and identify the cystic duct ostium which surprisingly was not easily identified given that his cystic duct lit up on his preoperative cholecystostomy
tube injection study. Nevertheless we elected to abort any attempt at a cholangiogram. The posterior surface of the gallbladder was fulgurated and Surgiflo was applied over the field. A 19 [place] round Abrahan drain was then introduced through the
right lateralmost port and passed across the field and secured to the skin with a 3-0 nylon suture. The epigastric port was closed with a [id number] 0 PDS suture and all remaining ports were then removed under direct visualization sedation. All
trocar sites were closed at the skin level using 4-0 Monocryl followed by Dermabond. Overall, the patient tolerated the procedure well and was taken to the Recovery Room postoperatively in stable condition.
I was the attending physician and performed the procedure with assistance from the resident above. I was present for all portions of the case, excluding skin closure.
Michi Mcfadden MD
[2024-07-19] MEDS: LOVENOX 40 MG SC (17:24)
[2024-07-19 19:53] VITALS: BP 110/50
[2024-07-19 21:41] LABS: Glucose - Point of Care 211 mg/dl (70-99)
[2024-07-19] MEDS: LANTUS 0.2 UNITS SC (22:44)
[2024-07-20] VITALS (8 sets, daily range): BP systolic 107–157; BP diastolic 49–66; PULSE 77; O2SAT 98
[2024-07-20] MEDS: TYLENOL PO ×3 (00:49→23:48)
[2024-07-20] MEDS: ZOSYN 50 IV ×4 (02:09→20:56)
[2024-07-20] MEDS: NSS IV (05:19)
[2024-07-20] MEDS: NSS 1000 IV (06:00)
[2024-07-20 06:14] LABS: % Basophils 0.2 % (0-2); % Eosinophils 0.9 % (0-6); % Immature Granulocytes 0.5 % (0-0.5); % Monocytes 10.2 % (1.7-9.3); % Neutrophils 69.2 % (42.2-75.2); Absolute Eosinophils 0.1 10^3/uL (0-0.7); Absolute Immature Granulocytes 0.1 10^3/uL (0-0.05); Absolute Lymphocytes 1.7 10^3/uL (1.2-3.4); Absolute Monocytes 0.9 10^3/uL (0.1-0.6); Absolute Neutrophils 6.4 10^3/uL (1.4-6.5); Hematocrit 26.1 % (39.0-52.0); Hemoglobin 8.8 g/dL (13.0-18.0); Mean Corp Hgb Conc. 33.7 g/dL (33.0-37.0); Mean Corpuscular Hgb 29.7 pg (27.0-31.0); Mean Corpuscular Volume 88.2 fL (80.0-94.0); Mean Platelet Volume 9.9 fL (7.4-10.4); Nucleated Red Blood Cells % 0 % (-); Platelet Count 208 10^3/uL (130-400); Red Blood Cell Count 2.96 10^6/uL (4.70-6.10); Red Cell Dist. Width 13.7 % (11.5-14.5); White Blood Cell Count 9.2 10^3/uL (4.8-10.8)
[2024-07-20 06:42] LABS: ALT (SGPT) 42 U/L (0-50); AST (SGOT) 25 U/L (17-59); Alkaline Phosphatase 75 U/L (38-126); Blood Urea Nitrogen 49 mg/dl (9-20); Calcium 7.7 mg/dl (8.4-10.2); Carbon Dioxide 24 mmol/L (22-30); Chloride 113 mmol/L (98-107); Estimated Creatinine Clearance 40 ml/min; Glucose 116 mg/dl (70-99); Potassium 4.4 mmol/L (3.5-5.1); Sodium 141 mmol/L (135-145); Total Bilirubin 0.3 mg/dl (0.2-1.3); Total Protein 5.6 g/dl (6.3-8.2); eGFR 34.59
[2024-07-20 07:19] LABS: Glucose - Point of Care 122 mg/dl (70-99)
[2024-07-20] MEDS: NOVOLOG FLEXPEN-MODERATE RESISTANCE SC (08:31)
[2024-07-20] MEDS: TYLENOL 650 MG PO ×4 (08:31→20:56)
[2024-07-20] MEDS: LOPRESSOR 50 MG PO ×2 (08:32→20:57)
[2024-07-20] MEDS: PACERONE 200 MG PO ×2 (08:32→20:57)
--- NOTE | 2024-07-20 10:58 | W.PN.GS2 ---
Addendum entered and electronically signed by Saul Patel MD 07/20/24 13:10:
I saw and examined the patient.
The Nuclear Medicine Officer's note was reviewed and I agree with the note.
Comment: Improving. Drain remains nonbilious. Abd exam approp. Incisions cdi. Cont to monitor for now. IV abx
Original Note:
Today's Communication / Plan
-
c/w diet
follow LIDIA outputs
Assessment / Plan
-
This is a 74-year-old male with a h/o cholecystostomy tube placement in the setting of ACC
POD #2 laparoscopic fenestrating subtotal cholecystectomy, removal of cholecystostomy tube and drainage of intra-abdominal abscess for acute cholecystitis
AFVSS
Labs stable, LFT's within range
LIDIA with nonbilious outputs
H/O CKD, labs stable
Hyperkalemia resolved on home regimen of lokelma
H/O DM, BG well controlled with dietary advancements
Plan:
--C/W IV Zosyn, day 2/4 of abx
--C/W LIDIA tentatively x1 week, follow character and quality of drainage
--Diabetic diet as tolerated
--Analgesics prn
--C/W scheduled Lantus, SSI
--H/O right BKA, will consult PT/OT to follow with us
--Full dose AC on hold for 48-72h post operatively
--VTE ppx with lovenox/scds
Subjective Data
-
Date of Service: July 20, 2024
Patient seen and examined at bedside with Dr. Patel. Denies n/v. Tolerating diet. Minimal pain/soreness to incisions and abd.
Objective Data
-
Intake and Output
07/19/24 07/20/24 07/21/24
06:59 06:59 06:59
Intake Total 100 / 100 2912 / 2912
Output Total 1245 / 1245 2054 / 2054 70 / 70
Balance -1145 / -1145 857 / 857 -70 / -70
Intake:
Oral fluids 1612 / 1612
IV fluids (Total) 1200 / 1200
IV piggybacks 100 / 100 100 / 100
Output:
Drain Output (Total) 95 / 95 100 / 100 70 / 70
Right Lower Abdomen 40 / 40
Right Lower Cm-Garay 55 / 55 100 / 100 70 / 70
Urine, Voided 1150 / 1150 1954 / 1954
Vital Signs
Temp Pulse Resp BP Pulse Ox
98.8 F 62 18 120/55 96
07/20/24 07:15 07/20/24 07:15 07/20/24 07:15 07/20/24 07:15 07/20/24 07:15
Lab Results
07/20/24 05:38
07/20/24 05:38
Calcium 7.7 mg/dl (8.4-10.2) L 07/20/24 05:38
Total Bilirubin 0.3 mg/dl (0.2-1.3) 07/20/24 05:38
AST 25 U/L (17-59) 07/20/24 05:38
ALT 42 U/L (0-50) 07/20/24 05:38
Alkaline Phosphatase 75 U/L (38-126) 07/20/24 05:38
Total Protein 5.6 g/dl (6.3-8.2) L 07/20/24 05:38
Albumin 3.0 g/dl (3.5-5.0) L 07/20/24 05:38
Physical Exam
-
No apparent distress
Abdomen soft, tender, incisions well approximated no erythema, intact glue
LIDIA with expected nonbilious SSF
Patient has a bosch catheter: No
Patient has a central line: No
[2024-07-20] MEDS: LOKELMA 5 GRAM PO (12:06)
[2024-07-20] MEDS: ROXICODONE 5 MG PO (12:12)
[2024-07-20 13:19] LABS: Glucose - Point of Care 167 mg/dl (70-99)
[2024-07-20] MEDS: NOVOLOG FLEXPEN-MODERATE RESISTANCE 1 UNITS SC ×2 (13:23→17:23)
[2024-07-20 17:14] LABS: Glucose - Point of Care 191 mg/dl (70-99)
[2024-07-20] MEDS: LOVENOX 40 MG SC (17:22)
[2024-07-20 21:45] LABS: Glucose - Point of Care 191 mg/dl (70-99)
[2024-07-20] MEDS: LANTUS 0.2 UNITS SC (22:46)
[2024-07-21] VITALS (7 sets, daily range): BP systolic 120–179; BP diastolic 56–69
[2024-07-21] MEDS: ZOSYN 50 IV ×4 (02:29→20:05)
[2024-07-21] MEDS: TYLENOL PO ×2 (04:06→23:47)
[2024-07-21 06:53] LABS: % Basophils 0.5 % (0-2); % Eosinophils 3.5 % (0-6); % Immature Granulocytes 0.7 % (0-0.5); % Monocytes 10.3 % (1.7-9.3); Absolute Eosinophils 0.3 10^3/uL (0-0.7); Absolute Immature Granulocytes 0.1 10^3/uL (0-0.05); Absolute Lymphocytes 1.6 10^3/uL (1.2-3.4); Absolute Monocytes 0.8 10^3/uL (0.1-0.6); Absolute Neutrophils 4.9 10^3/uL (1.4-6.5); Hematocrit 25.8 % (39.0-52.0); Hemoglobin 8.8 g/dL (13.0-18.0); Mean Corp Hgb Conc. 34.1 g/dL (33.0-37.0); Mean Corpuscular Volume 88.1 fL (80.0-94.0); Mean Platelet Volume 10.1 fL (7.4-10.4); Nucleated Red Blood Cells % 0 % (-); Platelet Count 228 10^3/uL (130-400); Red Blood Cell Count 2.93 10^6/uL (4.70-6.10); Red Cell Dist. Width 13.7 % (11.5-14.5); White Blood Cell Count 7.7 10^3/uL (4.8-10.8)
[2024-07-21 07:14] LABS: ALT (SGPT) 38 U/L (0-50); AST (SGOT) 22 U/L (17-59); Alkaline Phosphatase 79 U/L (38-126); Blood Urea Nitrogen 37 mg/dl (9-20); Calcium 7.7 mg/dl (8.4-10.2); Carbon Dioxide 21 mmol/L (22-30); Chloride 113 mmol/L (98-107); Estimated Creatinine Clearance 42 ml/min; Glucose 127 mg/dl (70-99); Potassium 4.3 mmol/L (3.5-5.1); Sodium 140 mmol/L (135-145); Total Bilirubin 0.4 mg/dl (0.2-1.3); Total Protein 5.5 g/dl (6.3-8.2); eGFR 36.79
[2024-07-21 08:02] LABS: Glucose - Point of Care 140 mg/dl (70-99)
[2024-07-21] MEDS: TYLENOL 650 MG PO ×4 (08:32→20:05)
[2024-07-21] MEDS: NOVOLOG FLEXPEN-MODERATE RESISTANCE SC (08:32)
[2024-07-21] MEDS: PACERONE 200 MG PO ×2 (08:33→20:05)
[2024-07-21] MEDS: LOPRESSOR 50 MG PO ×2 (08:33→20:05)
--- NOTE | 2024-07-21 09:57 | W.PN.GS2 ---
Addendum entered and electronically signed by Saul Patel MD 07/21/24 10:44:
I saw and examined the patient.
The Body Mechanic's note was reviewed and I agree with the note.
Comment: Improving. Exam approp. Drain non-bilious. Monitor another day with abx.
Original Note:
Today's Communication / Plan
-
C/W LIDIA and ABX
Assessment / Plan
-
This is a 74-year-old male with a h/o cholecystostomy tube placement in the setting of ACC
POD #3 laparoscopic fenestrating subtotal cholecystectomy, removal of cholecystostomy tube and drainage of intra-abdominal abscess for acute cholecystitis
AFVSS
Labs stable, LFT's within range
LIDIA with nonbilious outputs
H/O CKD, labs stable
Hyperkalemia resolved on home regimen of lokelma
H/O DM, BG well controlled with dietary advancements
Plan:
--C/W IV Zosyn, day 3/4 of abx
--C/W LIDIA tentatively x1 week, follow character and quality of drainage
--Diabetic diet as tolerated
--Analgesics prn
--C/W scheduled Lantus, SSI
--H/O right BKA, appreciate PT/OT to following with us
--Full dose AC on hold for 48-72h post operatively
--VTE ppx with lovenox/scd
Subjective Data
-
Date of Service: July 21, 2024
Patient seen and examined at bedside with Dr. Patel. Denies n/v. Tolerating diet. Passed a BM after having some abdominal cramping. Incisional soreness improving.
Objective Data
-
Intake and Output
07/20/24 07/21/24 07/22/24
06:59 06:59 06:59
Intake Total 2912 / 2912 1300 / 1300 580 / 580
Output Total 2084 125 / 125 1250 / 1250
Balance 827 / 827 1175 / 1175 -670 / -670
Intake:
Oral fluids 1612 / 1612 480 / 480
IV fluids (Total) 1200 / 1200 1200 / 1200
IV piggybacks 100 / 100 100 / 100 100 / 100
Output:
Drain Output (Total) 130 / 130 125 / 125 50 / 50
Right Lower Cm-Garay 130 / 130 125 / 125 50 / 50
Urine, Voided 1954 1200 / 1200
Vital Signs
Temp Pulse Resp BP Pulse Ox
98.6 F 62 16 120/66 95
07/21/24 07:04 07/21/24 07:04 07/21/24 07:04 07/21/24 07:04 07/21/24 07:04
Lab Results
07/21/24 05:57
07/21/24 05:56
Calcium 7.7 mg/dl (8.4-10.2) L 07/21/24 05:56
Total Bilirubin 0.4 mg/dl (0.2-1.3) 07/21/24 05:56
AST 22 U/L (17-59) 07/21/24 05:56
ALT 38 U/L (0-50) 07/21/24 05:56
Alkaline Phosphatase 79 U/L (38-126) 07/21/24 05:56
Total Protein 5.5 g/dl (6.3-8.2) L 07/21/24 05:56
Albumin 3.0 g/dl (3.5-5.0) L 07/21/24 05:56
Physical Exam
-
NAD
ABD soft, mild incisional tenderness, nd
LIDIA with light SSF
[2024-07-21] MEDS: LOKELMA 5 GRAM PO (10:42)
[2024-07-21 12:01] LABS: Glucose - Point of Care 186 mg/dl (70-99)
[2024-07-21] MEDS: NOVOLOG FLEXPEN-MODERATE RESISTANCE 1 UNITS SC ×2 (12:19→17:14)
[2024-07-21 17:12] LABS: Glucose - Point of Care 154 mg/dl (70-99)
[2024-07-21] MEDS: LOVENOX 40 MG SC (17:13)
[2024-07-21 21:23] LABS: Glucose - Point of Care 162 mg/dl (70-99)
[2024-07-21] MEDS: LANTUS 0.2 UNITS SC (21:58)
[2024-07-22] MEDS: ZOSYN 50 IV ×2 (02:26→08:32)
[2024-07-22] MEDS: TYLENOL 650 MG PO ×2 (02:26→08:33)
[2024-07-22 03:12] VITALS: BP 129/64
[2024-07-22 07:25] VITALS: BP 144/65
[2024-07-22 07:34] LABS: % Basophils 0.6 % (0-2); % Eosinophils 6.9 % (0-6); % Immature Granulocytes 0.6 % (0-0.5); % Lymphocytes 20.2 % (20.5-51.1); % Monocytes 8.6 % (1.7-9.3); % Neutrophils 63.1 % (42.2-75.2); Absolute Eosinophils 0.5 10^3/uL (0-0.7); Absolute Lymphocytes 1.4 10^3/uL (1.2-3.4); Absolute Monocytes 0.6 10^3/uL (0.1-0.6); Absolute Neutrophils 4.4 10^3/uL (1.4-6.5); Hematocrit 27.6 % (39.0-52.0); Hemoglobin 9.2 g/dL (13.0-18.0); Mean Corp Hgb Conc. 33.3 g/dL (33.0-37.0); Mean Corpuscular Hgb 29.3 pg (27.0-31.0); Mean Corpuscular Volume 87.9 fL (80.0-94.0); Mean Platelet Volume 9.5 fL (7.4-10.4); Nucleated Red Blood Cells % 0 % (-); Platelet Count 238 10^3/uL (130-400); Red Blood Cell Count 3.14 10^6/uL (4.70-6.10); Red Cell Dist. Width 13.5 % (11.5-14.5)
[2024-07-22 07:34] LABS: Glucose - Point of Care 139 mg/dl (70-99)
[2024-07-22 08:24] LABS: ALT (SGPT) 43 U/L (0-50); AST (SGOT) 26 U/L (17-59); Albumin 3.1 g/dl (3.5-5.0); Alkaline Phosphatase 77 U/L (38-126); Blood Urea Nitrogen 28 mg/dl (9-20); Calcium 8.4 mg/dl (8.4-10.2); Carbon Dioxide 25 mmol/L (22-30); Chloride 113 mmol/L (98-107); Estimated Creatinine Clearance 47 ml/min; Glucose 125 mg/dl (70-99); Potassium 4.3 mmol/L (3.5-5.1); Sodium 142 mmol/L (135-145); Total Bilirubin 0.4 mg/dl (0.2-1.3); Total Protein 5.9 g/dl (6.3-8.2); eGFR 42.04
[2024-07-22] MEDS: LOPRESSOR 50 MG PO (08:33)
[2024-07-22] MEDS: PACERONE 200 MG PO (08:33)
[2024-07-22] MEDS: NOVOLOG FLEXPEN-MODERATE RESISTANCE SC (08:35)
[2024-07-22] MEDS: ELIQUIS 5 MG PO (08:45)
--- NOTE | 2024-07-22 09:43 | W.PN.GS2 ---
Today's Communication / Plan
-
D/C planning
Assessment / Plan
-
This is a 74-year-old male with a h/o cholecystostomy tube placement in the setting of ACC
POD #4 laparoscopic fenestrating subtotal cholecystectomy, removal of cholecystostomy tube and drainage of intra-abdominal abscess for acute cholecystitis
AFVSS
Labs stable, LFT's within range
LIDIA with nonbilious outputs
H/O CKD, labs stable
Hyperkalemia resolved on home regimen of lokelma
H/O DM, BG well controlled with dietary advancements. On lower dosages of insulin than his home regimen
Plan:
--C/W IV Zosyn, day 4/4 of abx
--C/W LIDIA tentatively x1 week, follow character and quality of drainage
--Diabetic diet as tolerated
--Analgesics prn
--C/W scheduled Lantus, SSI. Diabetic POWER HOUSE CONTROL ROOM OPERATOR consult to assist with discharge medication planning
--H/O right BKA, appreciate PT/OT to following with us
--Resume Eliquis
--VTE ppx with lovenox/scd
D/C home with LIDIA drain, plan removal as OP on Monday.
Subjective Data
-
Date of Service: July 22, 2024
Patient seen and examined at bedside with Dr. Mcfadden. Some occasional soreness but pain improving. Eager to go home. Denies n/v. Questions regarding his insulin regimen.
Objective Data
-
Intake and Output
07/21/24 07/22/24 07/23/24
06:59 06:59 06:59
Intake Total 1300 / 1300 2360 / 2360
Output Total 125 / 125 1855 / 1855
Balance 1175 / 1175 505 / 505
Intake:
Oral fluids 2160 / 2160
IV fluids (Total) 1200 / 1200
IV piggybacks 100 / 100 200 / 200
Output:
Drain Output (Total) 125 / 125 155 / 155
Right Lower Cm-Garay 125 / 125 155 / 155
Urine, Voided 1700 / 1700
Other:
Number of approximated MODERATE 1
amounts of urine
Vital Signs
Temp Pulse Resp BP Pulse Ox
98.4 F 60 18 144/65 97
07/22/24 07:25 07/22/24 07:25 07/22/24 07:25 07/22/24 07:25 07/22/24 07:25
Lab Results
07/22/24 07:18
07/22/24 07:18
Calcium 8.4 mg/dl (8.4-10.2) 07/22/24 07:18
Total Bilirubin 0.4 mg/dl (0.2-1.3) 07/22/24 07:18
AST 26 U/L (17-59) 07/22/24 07:18
ALT 43 U/L (0-50) 07/22/24 07:18
Alkaline Phosphatase 77 U/L (38-126) 07/22/24 07:18
Total Protein 5.9 g/dl (6.3-8.2) L 07/22/24 07:18
Albumin 3.1 g/dl (3.5-5.0) L 07/22/24 07:18
Physical Exam
-
NAD
ABD soft, mild incisional tenderness, nd
LIDIA with light SSF
--- NOTE | 2024-07-22 10:18 | PN.DE.MGMTRT ---
Insulin Management
- -
07/22/2024: Diabetes Management Consult
74 year old male with a h/o cholecystostomy tube placement in the setting of ACC
PMH: ASCVD, CAD s/p CABG x 3, HTN, HLD, CKD IIIb, REGGIE, Anemia of CKD, PAD s/p right BKA, hypercholesterolemia and DM type II.
Pt known to diabetes team from multiple admissions. Prior to admission was taking Lantus 28 units @ HS and Humalog 10 units with meals. Uses Dexcom CGM. Last A1C was 7.7% in 05/2024. Cr 1.7, eGFR 42.04.
Pt awake, alert, sitting up in his wheelchair, offers no c/o, able to discuss diabetes care plan for home mgt.
POD #4 laparoscopic fenestrating subtotal cholecystectomy, removal of cholecystostomy tube and drainage of intra-abdominal abscess for acute cholecystitis.
Pt states he requested for diabetes consult because he has noted low insulin requirement while he has been in the hospital and is trying to figure out why. He continued to report that he does not follow a diabetic diet does not exercise due to hx of
LBKA and is w/c bound.
His current insulin regimen is Lantus 20 units @ HS and moderate corrective insulin with meals, he has not required any meal time corrective insulin
07/21 premeal range 140 to 186, HS glucose was 162 and FBG 125 V, 139 POC this AM
Will make no changes to current regimen. Cont HS Lantus 20 units and moderate corrective.
Discussed discharge diabetes plan of care with pt, he wrote current dose in his note book. Instructed pt to keep a glucose log at home and to followup with PCP to adjust inulin doses if needed.
Diabetes History
- -
Type of Diabetes: 2 requiring insulin
Pre-Admission Diabetes Regimen
07/22/24
07:18
Creatinine 1.7 H
Lab Results
Hemoglobin A1c 6.0 % (4.0-5.6) H 07/19/24 05:55
Insulin Pump Settings
IP Diabetes Regimen
07/21/24 07/21/24 07/21/24
11:59 17:10 21:22
Glucose
POC Glucose 186 H 154 H 162 H
07/22/24 07/22/24
07:18 07:33
Glucose 125 H
POC Glucose 139 H
Meal type: Lunch
Meal type: Breakfast
Amount consumed: 95%
Amount consumed: 95%
Patient Education
[2024-07-22] MEDS: LOKELMA 5 GRAM PO (10:30)
--- NOTE | 2024-07-22 10:57 | W.DS.TRANS ---
Addendum entered and electronically signed by DARRIAN Inman 07/26/24 09:43:
dictated #[id number]
Original Note:
DC Summary - Personal Carer
-
Discharge Instructions:
Sleep Apnea Risk Intermediate
Discharge Diagnosis/Procedures Cholecystitis. Laparoscopic cholecystectomy
removal of percutaneous cholecystostomy tube.
Diet No restrictions
Activity No strenuous activity
Driving Restrictions As prior to admission
Bathing Restrictions OK to Shower
Instructions: How to care for a closed suction drain
Stand-Alone Forms:
Changes to Home Medications: No
Discharge Medications:
DC Medications w/original date entered in [employer]
oxycodone 5 mg tablet 5 mg PO Q4HPRN PRN mild pain #10 tabs 01/30/24
cholecalciferol (vitamin D3) 25 mcg (1,000 unit) tablet 25 mcg PO DAILY Supplement 05/12/24
multivitamin with folic acid 400 mcg tablet (Tab-A-Rafita) 1 tab PO DAILY Supplement 05/12/24
amiodarone 200 mg tablet 200 mg PO BID #60 tabs 05/21/24
apixaban 5 mg tablet (Eliquis) 5 mg PO BID #60 tabs 05/21/24
acetaminophen 325 mg tablet 650 mg PO PRN PRN mild pain 07/16/24
magnesium chloride 71.5 mg (magnesium chloride) tablet,delayed release (Slow-Mag) 71.5 mg PO BID 07/16/24
omega 2-kct-vmn-fish oil 1,000 mg (120 mg-180 mg) capsule (Fish Oil) 1 cap PO DAILY 07/16/24
metoprolol succinate 50 mg PO BID 07/18/24
sodium zirconium cyclosilicate 5 gram oral powder packet (Lokelma) 5 g PO DAILY 07/18/24
tramadol 50 mg tablet 25 mg (1/2 x 50 mg) PO Q6HPRN PRN severe pain/breakthrough pain #8 tabs 07/18/24
insulin glargine 100 unit/mL (3 mL) subcutaneous pen (Lantus Solostar U-100 Insulin) 20 unit (0.2 mL) SC HS Diabetes #15 mL 07/22/24
insulin lispro 100 unit/mL subcutaneous pen (Humalog KwikPen (U-100) Insulin) 4 unit (0.04 mL) SC AC Diabetes #0 mL 07/22/24
Home Medication Changes
Pending Results: No
[2024-07-22 11:10] VITALS: BP 150/69
--- NOTE | 2024-07-22 11:41 | CM ---
CM met with patient in room. Patient confirmed that he is having the LIDIA removed on 07/25. He feel comfortable with care. CM provided patient with surgeons phone number to make appointment.
IMM discussed.
PLAN: Home with LIDIA, plan to remove in three days at surgery office.
== END 2024-07-22 12:15 | disposition home or self-care (01) | DRG 408 ==
LOC: 2 SOUTH 06:00
PROVIDERS: Registered Nurse; ADMITTING PHYSICIAN Surgery
PROC: 0FP440Z Removal of Drainage Device from Gallbladder, Percutaneous Endoscopic Approach (ICD-10-PCS; 2024-07-18)
PROC: 0W9G4ZZ Drainage of Peritoneal Cavity, Percutaneous Endoscopic Approach (ICD-10-PCS; 2024-07-18)
PROC: 0FT44ZZ Resection of Gallbladder, Percutaneous Endoscopic Approach (ICD-10-PCS; 2024-07-18)
PROC: 0FN44ZZ Release Gallbladder, Percutaneous Endoscopic Approach (ICD-10-PCS; 2024-07-18)
DX: K80.00 Calculus of gallbladder with acute cholecystitis without obstruction (principal); K65.1 Peritoneal abscess; K66.0 Peritoneal adhesions (postprocedural) (postinfection); I25.10 Atherosclerotic heart disease of native coronary artery without angina pectoris; I12.9 Hypertensive chronic kidney disease with stage 1 through stage 4 chronic kidney disease, or unspecified chronic kidney disease; E11.22 Type 2 diabetes mellitus with diabetic chronic kidney disease; N18.32 Chronic kidney disease, stage 3b; E78.5 Hyperlipidemia, unspecified; E78.00 Pure hypercholesterolemia, unspecified; D63.1 Anemia in chronic kidney disease; I73.9 Peripheral vascular disease, unspecified; E87.5 Hyperkalemia; Z60.2 Problems related to living alone; Z89.511 Acquired absence of right leg below knee; Z79.01 Long term (current) use of anticoagulants; Z79.4 Long term (current) use of insulin; Z95.1 Presence of aortocoronary bypass graft
CPT/HCPCS: 88304; 80048; 80053; 82962; 83036; 85025; 97116; 97162; 97166; C1776

== ENCOUNTER → 2024-09-05 10:37 | Outpatient (REF) | payer MEDICARE, OTHER, SELFPAY | LOC: RAD 10:37 | PROVIDERS: ATTENDING PHYSICIAN Registered Nurse; FAMILY PHYSICIAN Family Medicine | DX: I77.9 Disorder of arteries and arterioles, unspecified (principal) | CPT/HCPCS: 93922; 93925 ==

== ENCOUNTER 2025-01-03 03:02 | Emergency (ER) | payer MEDICARE, OTHER, SELFPAY ==
[2025-01-03 03:12] VITALS: BP 184/82
[2025-01-03 03:42] VITALS: BMI 29.0
--- NOTE | 2025-01-03 03:51 | ED.GENMED ---
History of Present Illness
<Clay Pino Jr., PA-C - Last Filed: 01/03/25 05:55>
General
Chief Complaint: Abdominal Pain
Source: patient
Exam Limitations: none
Time Seen by Provider: 01/03/25 03:18
Nursing documentation reviewed up to this point in time: agreed with
History of Present Illness
History of Present Illness:
74-year-old male past medical history of A-fib currently on Eliquis, CAD hypertension hyperlipidemia presenting to the emergency department today with concerns of an upper abdominal pain that lasted about an hour roughly 9 hours prior to arrival
seem to resolve he then went to sleep he then had a recurrence of symptoms roughly an hour prior to arrival described as an upper abdominal achy throbbing discomfort lasted for roughly 45 minutes and has since fully resolved. Denies associated
shortness of breath nausea vomiting or diaphoresis. Did have some loose bowel movements earlier in the day. Denies any recent trauma surgery mobilization
Past History
<Clay Pino Jr., PA-C - Last Filed: 01/03/25 05:55>
Past History
ED Past Medical History: CAD, HTN, Hypercholesterolemia, NIDDM and Other (Kidney stones, appendectomy, DM)
ED Past Surgical History: Cardiac
Social History
Tobacco: Non-smoker
Alcohol: Occasional
Drug: None
Living: alone
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
Family History
Family History: Other (Brother with kidney stones)
Review of Systems
<Clay Pino Jr., PA-C - Last Filed: 01/03/25 05:55>
Review of Systems
Allergies reviewed?: Yes
All Other Systems: ROS reviewed and negative except as documented in HPI and ROS
Phy Exam
<Clay Pino Jr., PA-C - Last Filed: 01/03/25 05:55>
Physical Exam
Physical Exam:
GENERAL: Alert , in no apparent distress
EYE: pupils equal and reactive
NECK: Supple, no significant adenopathy.
ENT: o/p clr, mmm.
CARDIAC: Regular rate and rhythm .
LUNGS: Clear breath sounds bilaterally, no acute respiratory distress, no wheezes/rales/rhonchi
ABDOMEN: Soft, without focal tenderness, no r/g, no cvat
NEUROLOGICAL: Alert and oriented, no focal neuro deficits
SKIN: Warm and dry, skin intact.
MUSCULOSKELETAL: No edema, well perfused.
PSYCH: Normal and appropriate interaction.
Course
<Clay Pino Jr., MICH - Last Filed: 01/03/25 05:55>
Orders/Labs/Results
Orders:
Orders
01/03/25 03:06
EKG [Electrocardiogram (*1)] Urgent
Reason for Study: Abdominal Pain
Other Reason for Exam: epigastric pain
EKG- Treatment ONCE
01/03/25 03:37
Cardiac Monitoring- Treatment ONCE
CR Chest - 2 Views Urgent
Comment:
Reason For Exam: upper abd pain chest pain
01/03/25 03:57
Complete Blood Count/With Diff Urgent
Comprehensive Metabolic Panel Urgent
Lipase Urgent
Troponin I Urgent
01/03/25 05:53
Electrocardiogram (*1) Urgent
Reason for Study: Chest Pain
EKG- Treatment ONCE
01/03/25 06:08
Troponin I Urgent
01/03/25 06:22
Acetaminophen [Tylenol] 1,000 mg PO NOW STA
Abnormal Lab Results
01/03/25
03:57
RBC 3.97 L 10^6/uL
(4.70-6.10)
Hgb 11.4 L g/dL
(13.0-18.0)
Hct 34.3 L %
(39.0-52.0)
RDW 14.8 H %
(11.5-14.5)
Absolute Monos (auto) 0.8 H 10^3/uL
(0.1-0.6)
Monocytes % 10.2 H %
(1.7-9.3)
BUN 39 H mg/dl
(9-20)
Creatinine 1.8 H mg/dL
(0.7-1.3)
Glucose 126 H mg/dl
(70-99)
AST 138 H U/L
(17-59)
ALT 92 H U/L
(0-50)
Alkaline Phosphatase 131 H U/L
(38-126)
01/03/25 03:57
01/03/25 03:57
Vital Signs
Initial and Last Documented VS:
Initial Vital Signs
Temp Pulse Resp BP Pulse Ox
98.3 F 66 16 184/82 98
01/03/25 03:12 01/03/25 03:12 01/03/25 03:12 01/03/25 03:12 01/03/25 03:12
Last Documented Vital Signs
Temp Pulse Resp BP Pulse Ox
98.3 F 56 14 169/77 97
01/03/25 03:12 01/03/25 07:00 01/03/25 07:00 01/03/25 07:00 01/03/25 07:00
<Navneet Casey PA-C - Last Filed: 01/03/25 08:09>
Orders/Labs/Results
Orders:
Orders
01/03/25 03:06
EKG [Electrocardiogram (*1)] Urgent
Reason for Study: Abdominal Pain
Other Reason for Exam: epigastric pain
EKG- Treatment ONCE
01/03/25 03:37
Cardiac Monitoring- Treatment ONCE
CR Chest - 2 Views Urgent
Comment:
Reason For Exam: upper abd pain chest pain
01/03/25 03:57
Complete Blood Count/With Diff Urgent
Comprehensive Metabolic Panel Urgent
Lipase Urgent
Troponin I Urgent
01/03/25 05:53
Electrocardiogram (*1) Urgent
Reason for Study: Chest Pain
EKG- Treatment ONCE
01/03/25 06:08
Troponin I Urgent
01/03/25 06:22
Acetaminophen [Tylenol] 1,000 mg PO NOW STA
Abnormal Lab Results
01/03/25
03:57
RBC 3.97 L 10^6/uL
(4.70-6.10)
Hgb 11.4 L g/dL
(13.0-18.0)
Hct 34.3 L %
(39.0-52.0)
RDW 14.8 H %
(11.5-14.5)
Absolute Monos (auto) 0.8 H 10^3/uL
(0.1-0.6)
Monocytes % 10.2 H %
(1.7-9.3)
BUN 39 H mg/dl
(9-20)
Creatinine 1.8 H mg/dL
(0.7-1.3)
Glucose 126 H mg/dl
(70-99)
AST 138 H U/L
(17-59)
ALT 92 H U/L
(0-50)
Alkaline Phosphatase 131 H U/L
(38-126)
01/03/25 03:57
01/03/25 03:57
Vital Signs
Initial and Last Documented VS:
Initial Vital Signs
Temp Pulse Resp BP Pulse Ox
98.3 F 66 16 184/82 98
01/03/25 03:12 01/03/25 03:12 01/03/25 03:12 01/03/25 03:12 01/03/25 03:12
Last Documented Vital Signs
Temp Pulse Resp BP Pulse Ox
98.3 F 56 14 169/77 97
01/03/25 03:12 01/03/25 07:00 01/03/25 07:00 01/03/25 07:00 01/03/25 07:00
<Clay Pino Jr., PA-C - Last Filed: 01/03/25 05:55>
MDM/Problems Addressed
MDM/Problems Addressed:
74-year-old male presenting to the emergency department today with concerns of epigastric abdominal discomfort without radiation no associated send that occurred just prior to arrival and has since resolved prior to my assessment. No associated
nausea vomiting diaphoresis or shortness of breath. Did not radiate from the upper abdomen. Initial EKG without acute changes from previous. Labs showing CKD but at baseline. Slight elevation of alk phos and LFTs but patient with no ongoing
abdominal pain no pain to palpation making surgical pathology very unlikely. Initial troponin negative. Chest x-ray without emergent findings.
<Clay Pino Jr., PA-C - Last Filed: 01/03/25 05:55>
*Pulse Oximetry
SaO2: 98
Oxygen Mode of Delivery: Room air
<Navneet Casey PA-C - Last Filed: 01/03/25 08:09>
*Pulse Oximetry
Patient hypoxic: no
*Critical Care Note
Total Time (30-74mins, 75-104mins- exclusive of procedures): Not Applicable
<Navneet Casey PA-C - Last Filed: 01/03/25 08:09>
Update Note
Update Note:
0740: Repeat trop stable. Pt remains asymptomatic. Pain seems more GI/gastric than cardiac. Will give course of PPI
ED Attending Note
<Clay Pino Jr., PA-C - Last Filed: 01/03/25 05:55>
-
Portions of this chart may have been created with voice recognition software.� Occasional wrong word or��sound alike� substitutions may have occurred due to the inherent limitations of voice recognition software.
Discharge Plan
Departure
Patient Disposition: Home (Routine Discharge)
Date of Disposition: 01/03/25
Time of Disposition: 07:23
Patient with high blood pressure during this ER visit?: Yes
Condition: Good
Covid-19: Not Applicable
Discharge Problem:
Chest pain
Instructions: Chest Pain DCA Follow Up
Prescriptions:
New
pantoprazole 40 mg tablet,delayed release (DR/EC)
40 mg PO DAILY Qty: 14 0RF
No Action
cholecalciferol (vitamin D3) 25 mcg (1,000 unit) tablet
25 mcg PO DAILY
multivitamin with folic acid [Tab-A-Rafita] 400 mcg tablet
1 tab PO DAILY
Eliquis 5 mg Tablet
5 mg PO BID Qty: 60 0RF
amiodarone 200 mg Tablet
200 mg PO BID Qty: 60 0RF
omega 6-tuh-brd-fish oil [Fish Oil] 1,000 (120-180) mg Capsule
1 cap PO DAILY
Slow-Mag 71.5 mg Tablet,Delayed Release (Dr/Ec)
71.5 mg PO BID
acetaminophen 325 mg tablet
650 mg PO PRN PRN (Reason: mild pain)
Lokelma 5 gram Powder In Packet
5 g PO DAILY
metoprolol succinate
50 mg PO BID
tramadol 50 mg tablet
25 mg PO Q6HPRN PRN (Reason: severe pain/breakthrough pain) Qty: 8 0RF
insulin lispro [Humalog KwikPen Insulin] 100 unit/mL insulin pen
4 unit SC AC Qty: 0 0RF
Rx Instructions:
as per diabetic management instructions
insulin glargine [Lantus Solostar U-100 Insulin] 100 unit/mL (3 mL) Insulin Pen
20 unit SC HS Qty: 15 0RF
Referrals:
Gene Banks, [Family Provider, Family Practice]
Activity Restrictions/Additional Instructions:
You came to the emergency department today with concerns of upper abdominal pain. Here your reassuring assessment no evidence of emergent pathology. Please follow-up closely with cardiology. Return for any worsening, new or concerning symptoms.
Interventions
Interventions:
*Risk Screen - Suicide Last Done: 01/03/25 03:12
*General Assessment Last Done: 01/03/25 03:42
*Neglect/Abuse Screening Last Done: 01/03/25 03:42
*ED- Fall Risk Assessment Last Done: 01/03/25 07:26
*ED COVID-19 Vaccine History Last Done: 01/03/25 03:42
*ED Influenza Vaccine History Last Done: 01/03/25 03:42
*Nursing Disposition Last Done: 01/03/25 07:31
IK-Xjtrba-Xlgjwxodjg Assessment Last Done: 01/03/25 07:22
Discharge Date and Time
Discharge Date/Time: 01/03/25 07:36
Print Language: DIVEHI
[2025-01-03 03:57] VITALS: BP 165/71
[2025-01-03 04:00] VITALS: BP 160/69
[2025-01-03 04:08] LABS: Hematocrit 34.3 % (39.0-52.0); Hemoglobin 11.4 g/dL (13.0-18.0); Mean Corp Hgb Conc. 33.2 g/dL (33.0-37.0); Mean Corpuscular Volume 86.4 fL (80.0-94.0); Nucleated Red Blood Cells % 0 % (-); Platelet Count 187 10^3/uL (130-400); Red Cell Dist. Width 14.8 % (11.5-14.5)
[2025-01-03 04:36] LABS: ALT (SGPT) 92 U/L (0-50); AST (SGOT) 138 U/L (17-59); Albumin 3.5 g/dl (3.5-5.0); Alkaline Phosphatase 131 U/L (38-126); Blood Urea Nitrogen 39 mg/dl (9-20); Calcium 8.7 mg/dl (8.4-10.2); Carbon Dioxide 26 mmol/L (22-30); Chloride 105 mmol/L (98-107); Estimated Creatinine Clearance 44 ml/min; Glucose 126 mg/dl (70-99); Lipase 67 U/L (23-300); Potassium 4.3 mmol/L (3.5-5.1); Sodium 135 mmol/L (135-145); Total Protein 6.4 g/dl (6.3-8.2); eGFR 39.25
[2025-01-03 04:49] LABS: Troponin I 0.028 ng/ml
[2025-01-03 05:02] VITALS: BP 152/66
[2025-01-03 06:00] VITALS: BP 175/78
[2025-01-03] MEDS: TYLENOL 1000 MG PO (06:28)
[2025-01-03 07:00] VITALS: BP 169/77
[2025-01-03 07:00] LABS: Troponin I 0.027 ng/ml
== END 2025-01-03 07:36 | disposition home or self-care (01) ==
LOC: EMR 03:02
PROVIDERS: Physician Assistant; EMERGENCY PHYSICIAN Student in an Organized Health Care Education/Training Program; FAMILY PHYSICIAN Family Medicine
DX: R07.89 Other chest pain (principal); I48.91 Unspecified atrial fibrillation; I12.9 Hypertensive chronic kidney disease with stage 1 through stage 4 chronic kidney disease, or unspecified chronic kidney disease; E11.22 Type 2 diabetes mellitus with diabetic chronic kidney disease; N18.9 Chronic kidney disease, unspecified; E78.00 Pure hypercholesterolemia, unspecified; I25.10 Atherosclerotic heart disease of native coronary artery without angina pectoris; Z79.01 Long term (current) use of anticoagulants; Z87.442 Personal history of urinary calculi; Z90.49 Acquired absence of other specified parts of digestive tract
CPT/HCPCS: 99283; 71046; 80053; 83690; 84484; 85025; 93005